=== PATIENT | female | born 1950 | race Caucasian/White ===

== ENCOUNTER 2023-06-08 08:30 | Emergency (ER) | payer MEDICARE, OTHER, SELFPAY ==
[2023-06-08 08:37] VITALS: BP 141/94; PULSE 59; RESP 16; TEMP 36.6; O2SAT 97; BMI 30.6
--- NOTE | 2023-06-08 08:38 | ED_ITS ---
HPI - Female Genitourinary General Chief complaint: Urogenital-Female Stated complaint: POSSIBLE UTI/ABDOMINAL PAIN Time Seen by Provider: 06/08/23 08:38 History of Present Illness HPI Narrative: This document has been composed with a new electronic medical record and [employer] voice recognition system. This document may not fully inaccurately reflect the entirety of the patient encounter.this patient's here with her spouse complaining of frequency of urination with urgency dysuria and hematuria. She's not had fever vomiting or chills. She has intolerance to Cipro. She's not had any recent infections for several years. She is not had a history kidney stones. She does not have any back or flank pain. No nausea or vomiting. She has had a cholecystectomy and thyroidectomy and hysterectomy. She has not had her appendix removed. The discomfort is in the suprapubic area. Related Data Home Medications Medication Instructions Recorded Confirmed atorvastatin 20 mg tablet 20 mg PO DAILY 06/08/23 06/08/23 diclofenac sodium 75 mg 75 mg PO Q12H PRN pain 06/08/23 06/08/23 tablet,delayed release dicyclomine 20 mg tablet 20 mg PO BID PRN IBS 06/08/23 06/08/23 levothyroxine 100 mcg tablet 100 mcg PO DAILY 06/08/23 06/08/23 metoprolol succinate 25 mg 25 mg PO DAILY 06/08/23 06/08/23 tablet,extended release 24 hr valsartan 80 mg tablet 80 mg PO DAILY 06/08/23 06/08/23 Allergies Allergy/AdvReac Type Severity Reaction Status Date / Time ciprofloxacin [From Cipro] AdvReac Mild Verified 06/08/23 08:40 PFSH PFSH Social History Smoking status: Former smoker Exam Narrative Exam Narrative: patient's awake alert oriented ?3 does not appear in any discomfort. Pleasant and cooperative. Problem focused examination as noted below. The back shows no tenderness to percussion over the renal area. Examination abdomen shows previous surgical incisions. There is no guarding rebound rigidity or peritoneal findings. No tenderness in the right lower quadrant or the left lower quadrant. She does have mild discomfort with palpation in the suprapubic area. Otherwise rest examination including neurological examination skin rest traced as are all normal. Symptoms are consistent with a urinary tract infection Constitutional Vital Signs, click to edit/add: Last Vital Signs Temp 97.8 F 06/08/23 08:37 Pulse 59 L 06/08/23 08:37 Resp 16 06/08/23 08:37 BP 141/94 H 06/08/23 08:37 Pulse Ox 97 06/08/23 08:37 O2 Del Method Room Air 06/08/23 08:37 Course Vital Signs Vital signs: Vital Signs Temperature 97.8 F 06/08/23 08:37 Pulse Rate 59 L 06/08/23 08:37 Respiratory Rate 16 06/08/23 08:37 Blood Pressure 141/94 H 06/08/23 08:37 Pulse Oximetry 97 06/08/23 08:37 Oxygen Delivery Method Room Air 06/08/23 08:37 Temperature 97.8 F 06/08/23 08:37 Pulse Rate 59 L 06/08/23 08:37 Respiratory Rate 16 06/08/23 08:37 Blood Pressure 141/94 H 06/08/23 08:37 Pulse Oximetry 97 06/08/23 08:37 Oxygen Delivery Method Room Air 06/08/23 08:37 MDM - Female Genitourinary MDM Narrative Medical decision making narrative: patient's symptoms, findings and laboratory investigations suggests urinary tract infection. Because of intolerance to quinolones I'll place her on Keflex. She'll also begin Pyridium. She is drink plenty of fluids. She should have her urine rechecked when therapy is completed Lab Data Labs: Lab Results 06/08/23 Range/Units 08:36 Urine Color Yellow (YELLOW) Urine Clarity Slightly cloudy A (CLEAR) Urine pH 6.5 (5.0-9.0) Ur Specific [place] 1.020 (1.005-1.025) Urine Protein >=300 A (NEG/TRACE) mg/dL Urine Glucose (UA) Negative (NEGATIVE) mg/dL Urine Ketones Trace A (NEGATIVE) mg/dL Urine Occult Blood Large A (NEGATIVE) Urine Nitrite Negative (NEGATIVE) Urine Bilirubin Small A (NEGATIVE) Urine Urobilinogen 1.0 (0.2-1.0) EU/dL Ur Leukocyte Esterase Moderate A (NEGATIVE) Discharge Plan Discharge Chief Complaint: Urogenital-Female Clinical Impression: Urinary tract infection Patient Disposition: Home, Self-Care Time of Disposition Decision: 09:14 Prescriptions / Home Meds: No Action atorvastatin 20 mg tablet 20 mg PO DAILY Patient Comments: 5 times a week diclofenac sodium 75 mg tablet,delayed release (DR/EC) 75 mg PO Q12H PRN (Reason: pain) dicyclomine 20 mg tablet 20 mg PO BID PRN (Reason: IBS) levothyroxine 100 mcg tablet 100 mcg PO DAILY metoprolol succinate 25 mg tablet extended release 24 hr 25 mg PO DAILY valsartan 80 mg tablet 80 mg PO DAILY Additional Instructions: Keflex/extra fluids/Pyridium/recheck urine seven days Stand Alone Forms: Portal Instructions Referrals: Janina Castro MD [Primary Care Provider] - 1 week
[2023-06-08 09:09] LABS: Bilirubin Urine SMALL (NEGATIVE); Blood Urine LARGE (NEGATIVE); Glucose Urine UA NEGATIVE (NEGATIVE); Ketones Urine TRACE mg/dL (NEGATIVE); Leukocyte Esterase Urine MODERATE (NEGATIVE); Nitrite Urine NEGATIVE (NEGATIVE); Protein Urine >=300 mg/dL (NEG/TRACE); pH Urine 6.5 (5.0-9.0)
[2023-06-08 09:10] LABS: Clarity Urine SLIGHTLY CLOUDY (CLEAR); Urine Microscopic Indicated YES
[2023-06-08 09:15] LABS: Color Urine DK YELLOW (YELLOW)
[2023-06-08 09:16] LABS: Bacteria Urine TRACE #/HPF (NONE SEEN); Cast Seen? NONE SEEN #/LPF (NONE SEEN); Crystals Seen? None Seen #/HPF (None Seen); Mucus Urine NONE SEEN (NONE SEEN); RBC Urine >100 #/HPF (0-2); Squamous Epithelial Cell Urine RARE #/LPF (NONE/RARE)
[2023-06-08 09:17] LABS: Urine Culture Indicated YES
--- NOTE | 2023-06-09 10:08 | PC.NURSE ---
PT CALLED TO SEE ABOUT CULTURE RESULTS. PT AWARE THAT THEY TAKE A FEW DAYS TO RESULT AND TO KEEP TAKING THE ANTIBIOTIC SHE IS ON AND THAT WE WILL CONTACT HER IF THE ANTIBIOTIC NEEDS CHANGED AFTER WE GET THE CULTURE RESULTS. STATES SHE UNDERSTANDS.
--- NOTE | 2023-06-13 09:04 | PC.NURSE ---
06/13/23 0904 fadi felipe reviewwed pt urine from 06/08/23 nno at that time. Lesley Shah RN
== END 2023-06-08 09:21 | disposition home or self-care (01) ==
PROVIDERS: Emergency Provider Emergency Medicine Emergency Medical Services; PCP Family Medicine
DX: N39.0 Urinary tract infection, site not specified (principal); Z90.49 Acquired absence of other specified parts of digestive tract; E89.0 Postprocedural hypothyroidism; Z90.710 Acquired absence of both cervix and uterus; Z79.890 Hormone replacement therapy; Z79.899 Other long term (current) drug therapy; Z87.891 Personal history of nicotine dependence
CPT/HCPCS: 81001; 87086; 87150; 87186; 99283

== ENCOUNTER 2023-06-20 11:11 | Outpatient (OUT) | payer MEDICARE, OTHER, SELFPAY ==
[2023-06-20 12:28] LABS: Bilirubin Urine NEGATIVE (NEGATIVE); Blood Urine NEGATIVE (NEGATIVE); Clarity Urine CLEAR (CLEAR); Color Urine LT. YELLOW (YELLOW); Glucose Urine UA NEGATIVE (NEGATIVE); Ketones Urine TRACE mg/dL (NEGATIVE); Leukocyte Esterase Urine TRACE (NEGATIVE); Nitrite Urine NEGATIVE (NEGATIVE); Protein Urine NEGATIVE (NEG/TRACE); Specific Gravity Urine 1.015 (1.005-1.025); Urobilinogen Urine 0.2 EU/dL (0.2-1.0); pH Urine 6.5 (5.0-9.0)
== END 2023-06-20 11:12 | disposition home or self-care (01) ==
LOC: LAB 11:13
PROVIDERS: PCP Family Medicine; Visit Provider Family Medicine
DX: N30.01 Acute cystitis with hematuria (principal)
CPT/HCPCS: 81003; 87086; 87150; 87186

== ENCOUNTER 2023-07-28 15:29 | Outpatient (OUT) | payer MEDICARE, OTHER, SELFPAY ==
[2023-07-28 16:01] LABS: Bilirubin Urine NEGATIVE (NEGATIVE); Blood Urine LARGE (NEGATIVE); Clarity Urine CLEAR (CLEAR); Color Urine LT. YELLOW (YELLOW); Glucose Urine UA NEGATIVE (NEGATIVE); Ketones Urine TRACE mg/dL (NEGATIVE); Leukocyte Esterase Urine SMALL (NEGATIVE); Nitrite Urine NEGATIVE (NEGATIVE); Protein Urine NEGATIVE (NEG/TRACE); Urobilinogen Urine 0.2 EU/dL (0.2-1.0)
== END 2023-07-28 15:30 | disposition home or self-care (01) ==
LOC: LAB 15:32
PROVIDERS: PCP Family Medicine; Visit Provider Family Medicine
DX: R30.0 Dysuria (principal)
CPT/HCPCS: 81003; 87086

== ENCOUNTER 2024-02-27 09:07 | Outpatient (OUT) | payer MEDICARE, OTHER, SELFPAY ==
[2024-02-27 10:55] LABS: Alanine Aminotransferase 23 U/L (14-59); Aspartate Amino Transferase 18 U/L (15-37); Chol HDL Ratio 2.6; Cholesterol 187 mg/dL (<=200); HDL Cholesterol 73 mg/dL (40-60); Triglycerides 89 mg/dL (<=150); VLDL CHOLESTEROL 17.8 mg/dL
== END 2024-02-27 09:08 | disposition home or self-care (01) ==
LOC: LAB 09:07
PROVIDERS: PCP Family Medicine; Visit Provider Internal Medicine Cardiovascular Disease
DX: E78.2 Mixed hyperlipidemia (principal)
CPT/HCPCS: 36415; 80061; 84450; 84460

== ENCOUNTER 2024-02-27 09:08 | Outpatient (OUT) | payer MEDICARE, OTHER, SELFPAY ==
[2024-02-27 11:02] LABS: Free T4 1.15 ng/dL (0.76-1.46)
[2024-02-27 11:05] LABS: Thyroid Stimulating Hormone 1.136 uIU/mL (0.358-3.740)
== END 2024-02-27 09:09 | disposition home or self-care (01) ==
LOC: LAB 09:08
PROVIDERS: PCP Family Medicine; Visit Provider Family Medicine
DX: E78.2 Mixed hyperlipidemia (principal); I10 Essential (primary) hypertension; E03.9 Hypothyroidism, unspecified
CPT/HCPCS: 36415; 80061; 84439; 84443; 84450; 84460

== ENCOUNTER 2024-05-26 10:11 | Outpatient (OUT) | payer MEDICARE, OTHER, SELFPAY ==
--- NOTE | 2024-05-26 10:15 | MM_ITS ---
Patient Name: GARTH OLGUIN MR#: [id number] : 1950 Exam Date: 05/26/2024 Ordering Doctor: DR THIERRY CANTRELL RADIOLOGY REPORT PROCEDURE: MM TOMOSYNTHESIS SCREENING BI COMPARISON: MG MAMM SCREEN 3D DAMI CAD, 07/31/2021. MG MAMM SCREEN 3D DAMI CAD, 08/20/2022. INDICATIONS: Screening Calculator Name NCI Breast Cancer Risk Assessment Tool 5 Year Breast Cancer Risk 1.70% Lifetime Breast Cancer Risk 4.70% Personal Breast Cancer No Personal Ovarian Cancer No Treatments hysterectomy Family Cancers Mother with pancreatic cancer at age 70. LOCATION: [facility] BREAST COMPOSITION: The breasts are heterogeneously dense,which may obscure small masses. FINDINGS: DIAGNOSTIC CATEGORY 2--BENIGN FINDING. NO CHANGE FROM COMPARISON. Scattered benign-appearing calcifications are present. Scattered benign-appearing lymph nodes are present. RIGHT BREAST: No significant suspicious finding. LEFT BREAST: No significant suspicious finding. RECOMMENDATIONS: ROUTINE MAMMOGRAM AND CLINICAL EVALUATION IN 12 MONTHS. PLEASE NOTE: A NORMAL MAMMOGRAM DOES NOT EXCLUDE THE POSSIBILITY OF BREAST CANCER. A CLINICALLY SUSPICIOUS PALPABLE LUMP SHOULD BE BIOPSIED. Dictated by: Donny Harding MD on 05/26/2024 at 11:34 Approved by: Donny Harding MD on 05/26/2024 at 11:37
== END 2024-05-26 10:12 | disposition home or self-care (01) ==
LOC: MAMMO 10:12
PROVIDERS: PCP Family Medicine; Visit Provider Obstetrics & Gynecology
DX: Z12.31 Encounter for screening mammogram for malignant neoplasm of breast (principal); Z80.8 Family history of malignant neoplasm of other organs or systems
CPT/HCPCS: 77063; 77067

== ENCOUNTER 2025-03-03 09:01 | Outpatient (OUT) | payer MEDICARE, OTHER, SELFPAY ==
--- OUTSIDE RECORDS SUMMARY | 2025-02-24 10:16 | XMS_ITS ---
Author Name Auto Generated Organization OHIP Care Team Providers Care Telescope Maintenance Name Role Phone MARGI WANG Referring Unavailable AURELIA QUIROGA Primary Care Unavailable THIERRY CANTRELL Referring Unavailable AURELIA QUIROGA Primary Care Unavailable THIERRY CANRTELL Referring Unavailable AURELIA QUIROGA Primary Care Unavailable MARGI WANG Attending Unavailable MARGI WANG Referring Unavailable AURELIA QUIROGA Primary Care Unavailable PROBLEMS DATE TYPE CONDITION / CODE ATTENDING STATUS [facility] 02/24/2025 Admitting Diagnosis Encounter for preprocedural cardiovascular examination / Z01.810(ICD-10[facility] Admitting Diagnosis Body mass index (BMI) 29.0-29.9, adult / Z68.29(ICD-10) [facility] 02/25/2024 Admitting Diagnosis Atherosclerotic heart disease of [place] coronary artery without angina pectoris / I25.10(ICD-10) [facility] 06/07/2023 Admitting Diagnosis Personal history of nicotine dependence / Z87.891(ICD-10) [facility] 06/07/2023 Admitting Diagnosis Coronary angioplasty status / Z98.61(ICD-10) [facility] 06/07/2023 Admitting Diagnosis Acute myocardial infarction, unspecified / I21.9(ICD-10) [facility] 06/07/2023 Admitting Diagnosis Mixed hyperlipidemia / E78.2(ICD-10) [facility] 06/07/2023 Admitting Diagnosis Essential (primary) hypertension / I10(ICD-10) [facility] 06/07/2023 Admitting Diagnosis Patent foramen ovale (HHS-HCC) / Q21.12(ICD-10) [facility] 06/07/2023 Admitting Diagnosis Transient cerebral ischemic attack, unspecified / G45.9(ICD-10) [facility] 05/12/2024 Admitting diagnosis Acute vaginitis / N76.0(ICD-10) [place] 05/12/2024 Unknown Acute vaginitis / N76.0(ICD-10) [facility] 05/12/2024 Unknown Encounter for screening for malignant neoplasm of vagina / Z12.72(ICD-10) [place] 06/07/2023 Admitting Diagnosis Occlusion and stenosis of bilateral carotid arteries / I65.23(ICD-10) [facility] PROCEDURES No Procedure Records Found RESULTS CULT,GENITAL Observed: 05/12/2024 5:24 PM Status: F Source: [facility] Specimen Description .VAGINA Special Requests Site: Genital Culture NORMAL URO-GENITAL [place] NEGATIVE FOR NEISSERIA GONORRHOEAE Report Status FINAL 05/15/2024 Performed By: #### [facility] [place] #### [facility] [address] [place] [address] Low Emission Automobile Designer: Mario Doty MD [facility] [address] [place] [address] Low Emission Automobile Designer: Donny Booth MD CYTOLOGY REPORT Observed: 05/12/2024 12:00 AM Status: F Source: [facility] (NOTE) Path Number: [id number] DIAGNOSIS Imaged ThinPrep Pap - Vaginal (1 monolayer slide): Specimen Adequacy: Satisfactory for evaluation. Descriptive Diagnosis: Negative for intraepithelial lesion or malignancy. Comments: Specimen was screened at [facility], [facility] [address] Cytotech Screener: CS Rescreened By: YONATHAN Electronically Signed Out MIGUEL Mariano(ASCP) yonathan/05/17/2024 Source of Specimen: A: Imaged ThinPrep Pap - Vaginal (1 monolayer slide) HPV Reflex?......................HPV if Abnormal Clinical History Hysterectomy Z12.72 Vaginal pap post hysterectomy, non malignant condition Processing Lab: [address] [address] Interpretation performed at [facility], [address] [place] [address] This Pap Test has been evaluated with [...] GYNECOLOGIC CYTOLOGY REPORT Patient Name: GARTH OLGUIN [facility] Rec: [id number] [facility] ANAT[facility] [address] [place], [place] [address] [facility] US CAROTID ARTERY DUPLE X BILATERAL Observed: 04/08/2024 12:35 PM Status: F Source: [address], [address] [facility], [place] [address] Vascular Lab Report [facility] US CAROTID ARTERY DUPLEX BILATERAL Patient Name: GARTH OLGUIN Reading Physician: [id number] Neha Roman MD, [facility] Study Date: 04/08/2024 Ordering Provider: [id number] MARGI WANG MRN/PID: [id number] Fellow: Technologist: Orly New RD, T Date of /Age: 907/11/1950 / 73 years Technologist 2: Gender: F Admission Status: Outpatient Location Performed: [facility] Diagnosis/ICD: Occlusion and stenosis of bilateral carotid arteries-I65.23 Indication: HTN, Hyperlipidemia, Former Smoker, Previous TIA, CAD, PTCA-2017, PFO CPT Codes: 92846 Cerebrovascular Carotid Duplex scan complete CONCLUSIONS: Right [...] cm/s Right Left ICA/CCA Ratio 1.1 1.3 39144 Neha Roman MD, FACC Final ALLERGIES DATE TYPE / CODE NAME / CODE REACTION SEVERITY SOURCE 06/07/2023 DRUG INGREDI/[id number]( SNOMED CT) CIPROFLOXACIN [place] ENCOUNTERS ADMIT/DISCHARGE ACCOUNT NUMBER ADMITTING ENCOUNTER CLASS LOCATION SOURCE 02/24/2025/ 5 [id number] Ambulatory Building:[facility] [id number] [facility] 05/12/2024/ 4 [id number] Ambulatory Building:[facility] 05/12/2024/ 4 [id number] Ambulatory Building:[facility] 04/08/2024/ 4 [id number] Ambulatory Building:[address] PAYERS ENCOUNTER GUARANTOR PAYER SUBSCRIBER SOURCE 02/24/2025 GARTH B SHANTAANDERDOB: [id number] [address], [place] [address]Pzx: () Primary Insurance:MEDICAREPolic y Number: [id number] Date:2010-03-13 GARTH B SHANTAANDERDOB: [id number] [facility] [address] [place] [address], [place] [address]Xhh: () [facility] 02/24/2025 Secondary Insurance[facility] Number: [id number] Date:2022-10-13 JASEN Omalley SWANDERDOB: [id number] [facility] [address] [place] [address], [place] [address]Mhw: () [facility] 05/12/2024 GARTH Cerna SWANDERDOB: [id number] [facility] [address] [place] [address], [place] [address]Ayi: () Primary Insurance:MEDICAREPolic y Number: [id number] Date:8215-67-64[address], [place] [address]WJ: GARTH B SHANTAANDERDOB: [id number] [facility] [address] [place] [address], [place] [address]Lij: () [facility] 05/12/2024 Secondary Insurance:[facility] Number: [id number] Date:2014-10-13[address], [place] [address]GC: JASEN SWANDERDOB: [id number] [place], [place] [address]Hzt: (HP) [facility] 05/12/2024 GARTH Cerna SWANDERDOB: [id number] [facility] [address] [place], [place] [address]Zgg: (HP) Primary Insurance:MEDICAREPolic y Number: [id number] Date:[id number] [place] [address]XR: GARTH B SHANTAANDERDOB: [id number] [facility] [address] [place] [address], [place] [address]Nwo: (HP) [facility] 05/12/2024 Secondary Insurance:[facility]ENTERPoly Number: [id number] Date:2014-10-13[address], [place] [address]UJ: JASEN WOMACKANDERDOB: [id number] [facility] [address] [place] [address], [place] [address]Oaq: (HP) [facility] 04/08/2024 GARTH B SWANDERDOB: [id number] [facility] [address] [facility] [address]Kdb: (HP) Primary Insurance:MEDICAREPolic y Number: [id number] Date:2010-03-13 GARTH B SWANDERDOB: [id number] [facility] [address] [place], [place] [address]Jus: (HP) [facility] 04/08/2024 Secondary Insurance:[facility]ENTERPolicy Number: [id number] Date:2022-10-13 JASEN OLGUINDOB: [id number] [facility] [address] [place] [address] [facility]
[2025-03-03 10:26] LABS: Chol HDL Ratio 1.9; Cholesterol 155 mg/dL (<=200); HDL Cholesterol 81 mg/dL (40-60); Thyroid Stimulating Hormone 3.829 uIU/mL (0.358-3.740); Triglycerides 99 mg/dL (<=150); VLDL CHOLESTEROL 19.8 mg/dL
== END 2025-03-03 09:02 | disposition home or self-care (01) ==
LOC: LAB 09:01
PROVIDERS: PCP Family Medicine; Visit Provider Family Medicine
DX: E03.9 Hypothyroidism, unspecified (principal); E78.5 Hyperlipidemia, unspecified
CPT/HCPCS: 36415; 80061; 84439; 84443

== ENCOUNTER 2025-03-03 09:02 | Outpatient (OUT) | payer MEDICARE, OTHER, SELFPAY ==
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
--- OUTSIDE RECORDS SUMMARY | 2025-02-22 05:04 | XMS_ITS ---
Author Organization [facility] Address [address] [place] [address] Care Team Providers Care Oceanic Sciences Professor Name Role Phone Janina Castro M.D. Primary Care Provider Unavail able Jose Rodríguez Unavailable [phone] Self, Referral Unavailable Unavailable Jeramie Younger Unavailable [phone] REASON FOR VISIT Message Encounters Encounter Location Date Provider Diagnosis [facility] [address] [place] [address] 02/22/2025 Jeramie Younger Plan Of Treatment Next Appt Details Provider Name:Jeramie Younger, 03/14/2025 10:30:00 AM, [address], [address], [address], Provider Name:Jeramie Younger, 03/24/2025 09:30:00 AM, [address] [place] [address], [address], Provider Name:Jeramie Younger, 04/11/2025 09:50:00 AM, [address], [address], [address], Progress Notes * GARTH REGALADO BDOB:1949 (74 yo F)Acc No.[id number]:02/22/2025 Patient: LAINE CRAWFORDECCA Eryn :1950 A ge:74 Y S ex:Female Address:[address] [place] [address] 7 , [place], [address] * true * Date: Generated for Elizabeth avilez/Ludin/Kim on: 0 03/03/2025 09:04 AM EDT
--- OUTSIDE RECORDS SUMMARY | 2025-02-22 05:13 | XMS_ITS ---
Author Organization [facility] Address [address] [place] [address] Care Team Providers Care Nurse Staff Industrial Name Role Phone Janina Castro M.D. Primary Care Provider Unavail able Jose Rodríguez Unavailable [phone] Self, Referral Unavailable Unavailable Jose Ramon Sung Unavailable [phone] REASON FOR VISIT Surgical Patient Encounters Encounter Location Date Provider Diagnosis [facility] [address] [place] [address] 02/22/2025 Jose Ramon Sung Plan Of Treatment Next Appt Details Provider Name:Jeramie Younger, 03/14/2025 10:30:00 AM, [address], [address], Provider Name:Jeramie Younger, 03/24/2025 09:30:00 AM, [address] [place] [address], [address], Provider Name:Jeramie Younger, 04/11/2025 09:50:00 AM, [address] [place], [address], Progress Notes * GARTH REGALADO BDOB:1949 (74 yo F)Acc No.[id number]:02/22/2025 Patient: GARTH CRAWFORD :1950 A ge:74 Y S ex:Female Address:[address] [facility] [address] , [place], [address] * true * Date: Generated for Elizabeth avilez/Ludin/Kim on: 0 03/03/2025 09:04 AM EDT
--- OUTSIDE RECORDS SUMMARY | 2025-02-24 10:16 | XMS_ITS ---
Author Name Auto Generated Organization [facility] Care Team Providers Care Lead Java J2Ee Developer Name Role Phone THIERRY CANTRELL Referring Unavailable AURELIA QUIROGA Primary Care Unavailable THIERRY CANTRELL Referring Unavailable AURELIA QUIROGA Primary Care Unavailable MARGI WANG Attending Unavailable MARGI WANG Referring Unavailable AURELIA QUIROGA Primary Care Unavailable MARGI WANG Referring Unavailable AURELIA QUIROGA Primary Care Unavailable PROBLEMS DATE TYPE CONDITION / CODE ATTENDING STATUS [facility] 02/24/2025 Admitting Diagnosis Encounter for preprocedural cardiovascular examination / Z01.810(ICD-10) [facility] Admitting Diagnosis Body mass index (BMI) 29.0-29.9, adult / Z68.29(ICD-10) [facility] 02/25/2024 Admitting Diagnosis Atherosclerotic heart disease of [place] coronary artery without angina pectoris / I25.10(ICD-10) [facility] 06/07/2023 Admitting Diagnosis Personal history of nicotine dependence / Z87.891(ICD-10) [facility] 06/07/2023 Admitting Diagnosis Coronary angioplasty status / Z98.61(ICD-10) [facility] 06/07/2023 Admitting Diagnosis Acute myocardial infarction, unspecified / I21.9(ICD-10) [facility] 06/07/2023 Admitting Diagnosis Mixed hyperlipidemia / E78.2(ICD-10) [facility] 06/07/2023 Admitting Diagnosis Essential (primary) hypertension / I10(ICD-10) [facility] 06/07/2023 Admitting Diagnosis Patent foramen ovale (HHS-HCC) / Q21.12(ICD-10) [facility] 06/07/2023 Admitting Diagnosis Occlusion and stenosis of bilateral carotid arteries / I65.23(ICD-10) [facility] 06/07/2023 Admitting Diagnosis Transient cerebral ischemic attack, unspecified / G45.9(ICD-10) [facility] 05/12/2024 Admitting diagnosis Acute vaginitis / N76.0(ICD-10) [facility] 05/12/2024 Unknown Acute vaginitis / N76.0(ICD-10) [facility] 05/12/2024 Unknown Encounter for screening for malignant neoplasm of vagina / Z12.72(ICD-10) [facility] PROCEDURES No Procedure Records Found RESULTS CULT,GENITAL Observed: 05/12/2024 5:24 PM Status: F Source: [facility] Specimen Description .VAGINA Special Requests Site: Genital Culture NORMAL URO-GENITAL [place] NEGATIVE FOR NEISSERIA GONORRHOEAE Report Status FINAL 05/15/2024 Performed By: #### [facility] #### [facility] [address] [place] [address] Kardex Clerk: Mario Doty MD [facility] [address] [place] [address] Kardex Clerk: Donny Booth MD CYTOLOGY REPORT Observed: 05/12/2024 12:00 AM Status: F Source: [facility] (NOTE) Path Number: [id number] DIAGNOSIS Imaged ThinPrep Pap - Vaginal (1 monolayer slide): Specimen Adequacy: Satisfactory for evaluation. Descriptive Diagnosis: Negative for intraepithelial lesion or malignancy. Comments: Specimen was screened at [facility], [facility] [address] Cytotech Screener: CS Rescreened By: YONATHAN Electronically Signed Out MIGUEL Mariano(ASCP) yonathan/05/17/2024 Source of Specimen: A: Imaged ThinPrep Pap - Vaginal (1 monolayer slide) HPV Reflex?......................HPV if Abnormal Clinical History Hysterectomy Z12.72 Vaginal pap post hysterectomy, non malignant condition Processing Lab: [address] [address] Interpretation performed at [facility], [address] [place] [address] This Pap Test has been evaluated with the assistance of the ThinPrep Pap Test Imaging System. The Pap smear is a screening test primarily for squamous epithelial lesions, which is subject to both false negative and false positive results. Your patient should be reminded to consult you immediately if she experiences any suspicious signs or symptoms, regardless of her Pap smear result. GYNECOLOGIC CYTOLOGY REPORT Patient Name: GARTH OLGUIN [facility] Rec: [id number] [facility] [address] [place], [place] [address] [facility] US CAROTID ARTERY DUPLE X BILATERAL Observed: 04/08/2024 12:35 PM Status: F Source: [address], [address] [facility], [place] [address] Vascular Lab Report [facility] US CAROTID ARTERY DUPLEX BILATERAL Patient Name: GARTH OLGUIN Reading Physician: [id number] Neha Roman MD, [facility] Study Date: 04/08/2024 Ordering Provider: [id number] MARGI WANG MRN/PID: [id number] Fellow: Technologist: Orly New RD, T Date of /Age: 907/11/1950 / 73 years Technologist 2: Gender: F Admission Status: Outpatient Location Performed: [facility] Diagnosis/ICD: Occlusion and stenosis of bilateral carotid arteries-I65.23 Indication: HTN, Hyperlipidemia, Former Smoker, Previous TIA, CAD, PTCA-2017, PFO CPT Codes: 42903 Cerebrovascular Carotid Duplex scan complete CONCLUSIONS: Right Carotid: Findings are consistent with 50 to 69% stenosis of the right proximal internal carotid artery. Laminar flow seen by color Doppler. Right external carotid artery appears patent with no evidence of stenosis. No evidence of hemodynamically significant stenosis of the right common carotid artery. The right vertebral artery is patent with antegrade flow. No significant changes since 2020. Left Carotid: Findings are consistent with 50 to 69% stenosis of the left proximal internal carotid artery. Laminar flow seen by color Doppler. Left external carotid artery appears patent with no evidence of stenosis. No evidence of hemodynamically significant stenosis of the left common carotid artery. The left vertebral artery is patent with antegrade flow. No significant changes since 2020. Imaging & Doppler Findings: Right Plaque Morph: The proximal right internal carotid artery demonstrates irregular and calcified plaque. The distal right internal carotid artery demonstrates irregular and calcified plaque. The distal right common carotid artery demonstrates irregular plaque. Left Plaque Morph: The distal left internal carotid artery demonstrates irregular and calcified plaque. Right Left PSV EDV PSV EDV 95 cm/s 16 cm/s CCA P 115 cm/s 16 cm/s 113 cm/s 19 cm/s CCA M 87 cm/s 16 cm/s 77 cm/s 20 cm/s CCA D 67 cm/s 14 cm/s 84 cm/s 23 cm/s ICA P 86 cm/s 22 cm/s 100 cm/s 31 cm/s ICA M 106 cm/s 33 cm/s 138 cm/s 46 cm/s ICA D 142 cm/s 45 cm/s 70 cm/s ECA 87 cm/s 43 cm/s Vertebral 58 cm/s Right Left ICA/CCA Ratio 1.1 1.3 77575 Neha Roman MD, FACC Final ALLERGIES DATE TYPE / CODE NAME / CODE REACTION SEVERITY SOURCE 06/07/2023 DRUG INGREDI/[id number]( SNOMED CT) CIPROFLOXACIN Unknown [facility] Ambulatory ENCOUNTERS ADMIT/DISCHARGE ACCOUNT NUMBER ADMITTING ENCOUNTER CLASS LOCATION SOURCE 02/24/2025/ [id number] Ambulatory Building:[facility] [id number] [facility] 05/12/2024/ 4 [id number] Ambulatory Building:[facility] 05/12/2024/ 4 [id number] Ambulatory Building:[facility] 04/08/2024/ 4 [id number] Ambulatory Building:[address] PAYERS ENCOUNTER GUARANTOR PAYER SUBSCRIBER SOURCE 02/24/2025 GARTH Eryn WOMACKANDERDOB: [id number] [address], [place] [address]Rlz: () Primary Insurance:MEDICAREPolic y Number: [id number] Date:2010-03-13 GARTH B SHANTAANDERDOB: [id number] [facility] [address] [place] [address], [place] [address]Fpg: () [facility] 02/24/2025 Secondary Insurance[facility] Number: [id number] Date:2022-10-13 JASEN WOMACKANDERDOB: [id number] [facility] [address] [place] [address], [place] [address]Wbb: () [facility] 05/12/2024 GARTH Cerna SHANTAANDERDOB: [id number] [facility] [address] [place] [address], [place] [address]Uij: () Primary Insurance:MEDICAREPolic y Number: [id number] Date:5775-31-91[address], [place] [address]JP: GARTH B SHANTAANDERDOB: [id number] [address], [place] [address]Fxl: () [facility] 05/12/2024 Secondary Insurance[facility] Number: [id number] Date:2014-10-13[address] [place] [address]FT: JASEN SWANDERDOB: [id number], [place] [address]Iyr: () [facility] 05/12/2024 GARTH Cerna SWANDERDOB: [id number] [address] [place], [place] [address]Nva: (HP) Primary Insurance:MEDICAREPolic y Number: [id number] Date:2312-55-93[address] [address], [place] [address]ZL: GARTH B SHANTAANDERDOB: [id number] [facility] [address] [place], [place] [address]Yvl: (HP) [facility] 05/12/2024 Secondary Insurance:[facility] Number: [id number] Date:2014-10-13[address] [place], [place] [address]UL: JASEN WOMACKANDERDOB: [id number] [place], [place] [address]Qyh: (HP) [facility] 04/08/2024 GARTH B SHANTAANDERDOB: [id number] [facility] [address] [place], [place] [address]Ozx: (HP) Primary Insurance:MEDICAREPolic y Number: [id number] Date:2010-03-13 GARTH B SWANDERDOB: [id number] [facility] [address] [address], [place] [address]Toz: () [facility] 04/08/2024 Secondary Insurance:[facility]Policy Number: [id number] Date:2022-10-13 JASEN OLGUINDOB: [id number] [address] [facility]
--- OUTSIDE RECORDS SUMMARY | 2025-02-24 10:30 | XMS_ITS | Encounter Summary ---
Author Organization [facility] Address [address] [place] [address] Phone Care Team Providers Care Title Manager Name Role Phone Janina Castro MD Primary Care Provider [phone] Reason for Referral * Imaging (Routine) - Authorized Specialty Diagnoses / Procedures Referred By Contac t Referred To Contact Cardiology Diagnoses Bilateral carotid artery stenosis Procedures Vascular US Carotid Artery Duplex Bilateral Lul Rose DO [address] [place] [address], [address] [address] Phone: tel: fax: Referral ID Status Reason Start Date Expiration Date Visits Requested Visits Authorized [id number] Authorized Perform Procedure 02/24/2025 02/24/2026 1 1 * Consultation (Routine) - Authorized Specialty Diagnoses / Procedures Referred By Contac t Referred To Contact Cardiology Diagnoses ASHD (arteriosclerotic heart disease) Procedures Follow Up In Cardiology Lul Rose DO [address] [place] [address] 2, [address] [address] Phone: tel: fax: Lul Rose DO [address] [place] [address], [address] [address] Phone: tel: fax: Referral ID Status Reason Start Date Expiration Date V isits Requested Visits Authorized [id number] Authorized 02/24/2025 02/24/2026 1 1 * Cardiac Stress Testing (Routine) - Authorized Specialty Diagnoses / Procedures Referred By Chevy moreland Referred To Contact Radiology Diagnoses Preop cardiovascular exam ASHD (arteriosclerotic heart disease) History of PTCA Myocardial infarction, unspecified [place] type, unspecified artery (Multi) Essential hypertension Procedures Nuclear Stress Test CHG MYOCARDIAL SPECT MULTIPLE STUDIES Lul Rose DO [address] [place] [address] 2, [address] [place] [address] Phone: tel: fax: Referral ID Status Reason Start Date Expiration Date V isits Requested Visits Authorized [id number] Authorized 02/24/2025 02/24/2026 5 5 Reason for Visit * Reason Comments Annual Exam 1 year, arterioscler otic heart disease * Consultation (Routine) - Authorized Specialty Diagnoses / Procedures Referred By Chevy moreland Referred To Contact Cardiology Diagnoses ASHD (arteriosclerotic heart disease) Procedures Follow Up In Cardiology Lul Rose DO [address] [facility] 2, [address] [place] [address] Phone: tel: fax: Lul Rose DO [facility] [facility] 2, [address] [place] [address] Phone: tel: fax: Referral ID Status Reason Start Date Expiration Date V isits Requested Visits Authorized [id number] Authorized 02/25/2024 02/24/2025 1 1 Encounter Details Date Type Department Care Team (Latest Contact Info) Description 02/24/2025 10:30 AM EDT Office Visit [facility] [address] [facility] [address] [place] [address] Lul Rose DO [address] [facility] 2, [address] [place] [address] Preop cardiovascular exam; ASHD (arteriosclerotic heart disease); History of PTCA; Myocardial infarction, unspecified [place] type, unspecified artery (Multi); Mixed hyperlipidemia; Essential hypertension; PFO (patent foramen ovale) ([facility]); Bilateral carotid artery stenosis; TIA (transient [...] sent through Care Everywhere. * DASH Diet (Cook Islander) documented in this encounter Progress Notes * [...] tablet, Daily nitroglycerin (NITROSTAT) 0.3 mg omega 2-ppb-ykh-fish oil (Fish OiL) 1,000 mg (120 mg-180 mg) capsule 1 capsule, Daily TURMERIC ORAL 1 capsule, Daily xylitoL (XyliMelts) 550 mg muco-adhesive buccal tablet Daily Assessment/Plan 1. Preop cardiovascular exam 2. ASHD (arteriosclerotic heart disease) Follow Up In Cardiology 3. History of PTCA 4. Myocardial infarction, unspecified [place] type, unspecified artery (Multi) 5. Mixed hyperlipidemia 6. Essential hypertension 7. PFO (patent foramen ovale) ([facility]) 8. Bilateral carotid artery stenosis 9. TIA [...] Info) Description 03/17/2025 8:00 AM EDT Appointment [address] [place] [address] 03/17/2025 8:30 AM EDT Appointment [address] [place] [address] 03/17/2025 9:00 AM EDT Appointment [address] [place] [address] 03/17/2025 9:30 AM EDT Appointment [address] [place] [address] 03/17/2025 9:45 AM EDT Appointment [address] [place] [address] 02/16/2026 9:45 AM EDT Appointment [address] [place] [address] 03/01/2026 10:30 AM EDT Office Visit [address] [place] [address] Lul Rose DO [address] [place] [address] 2, [address] [place] [address] Scheduled Orders Name Type Priority Associated Diagnoses Orde r Schedule Nuclear Stress Test Cardiac Nuclear Medicine Routine Preop cardiovascular exam ASHD (arteriosclerotic heart disease) History of PTCA Myocardial infarction, unspecified [place] type, unspecified artery (Multi) Essential hypertension Expected: 02/24/2025 (Approximate), Expires: 02/24/2027 Vascular US Carotid Artery Duplex Bilateral Vascular Ultrasound Routine Bilateral carotid artery stenosis Expected: 03/13/2026 (Approximate), Expires: 02/24/2027 documented as of this encounter Visit Diagnoses Diagnosis Preop cardiovascular exam Pre-operative cardiovascular examination ASHD (arteriosclerotic heart disease) Coronary atherosclerosis of unspecified type of vessel, ione or graft History of PTCA Postsurgical percutaneous transluminal coronary angioplasty status Myocardial infarction, unspecified [place] type, unspecified artery (Multi) Mixed hyperlipidemia Essential hypertension Unspecified essential hypertension PFO (patent foramen ovale) ([facility]) Ostium secundum type atrial septal defect Bilateral [...] documented as of this encounter Care Teams Title Manager Relationship Specialty Start Date End Date Janina Castro MD [address] [place] [address] PCP - General 04/03/21 documented as of this encounter
--- OUTSIDE RECORDS SUMMARY | 2025-03-03 09:04 | XMS_ITS | Encounter Summary ---
Author Organization Sudeep Dohertymeg [facility] Address [address] [place] [address] Care Team Providers Care Bench Assembler Electrical Name Role Phone Janina Castro MD Primary Care Provider [phone] Encounter Details Date Type Department Care Team (Late st Contact Info) Description 07/25/2021 Abstract [facility]ST[facility] GYNECOLOGY [address] [place] [address] [address] [place] [address] Jeovany Betancourt MD [address] [facility] [address] [place] [address] Social History Tobacco Use Types Packs/Day Years Used Date Smoking Tobacco: Former Smokeless Tobacco: Never Alcohol Use Standard Drinks/Week Comments No 0 (1 standard drink = 0.6 oz pur e alcohol) Comments No Sex and Gender Information Value Date Recorded Sex Assigned at Not on file Legal Sex Female 10:32 AM EDT Gender Identity Not on file Sexual Orientation Not on file documented as of this encounter Plan of Treatment Upcoming Encounters Date Type Department Care Team (Latest Contact Info) Description 03/24/2025 10:04 AM EDT Hospital Encounter [facility] [address] [place] [address] Jeramie Younger MD [facility] [place] [address] 03/24/2025 10:04 AM EDT - 03/24/2025 12:39 PM EDT Surgery [facility] [address] [place] [address] Jeramie Younger MD [facility] [place] [address] RIGHT TOTAL KNEE ARTHROPLASTY 05/16/2025 11:10 AM EDT Office Visit [facility] OBST[facility]ICS & [facility]YN[facility]OLOGY Part of [address] [place] [address] Shelby Castillo APRN - [address] [place] [address] yearly--last seen by Dr Gutierrez Scheduled Procedures Name Priority Associated Diagnoses Date/Ti me KNEE TOTAL ARTHROPLASTY Right knee pain, unspecified chronicity Osteoarthritis of right knee, unspecified osteoarthritis type 03/24/2025 10:04 AM EDT documented as of this encounter Visit Diagnoses Not on filedocumented in this encounter Additional Health Concerns Assessment Noted Time A fall risk assessment has been complete d for the patient 03/23/2018 10:41 AM EDT A Body Mass Index follow-up plan has been documented for the patient 07/23/2021 11:10 AM EDT documented as of this encounter Care Teams Bench Assembler Electrical Relationship Specialty Start Date End Date Janina Castro MD PCP - General Family Medicine 04/10/18 documented as of this encounter
--- OUTSIDE RECORDS SUMMARY | 2025-03-03 09:04 | XMS_ITS | Encounter Summary ---
Author Organization [facility]udeep Ayah [facility] Address [address] [place] [address] Care Team Providers Care Sales Agent Business Services Name Role Phone Janina Castro MD Primary Care Provider [phone] Encounter Details Date Type Department Care Team (Latest Contact Info) Description 04/23/2018 Surg/Proc Orders [facility] Gynecologic Oncology Services [facility] [address] [place] [id number] Farhad Mendez MD Endometrial adenocarcinoma (HCC) (Primary Dx) Social History Tobacco Use Types Packs/Day Years [...] AM EDT Hospital Encounter [facility] [address] [place] [address] Jeramie Younger MD [facility] [place] [address] 03/24/2025 10:04 AM EDT - 03/24/2025 12:39 PM EDT Surgery [facility] [address] [place] [address] Jeramie Younger MD [address] [place] [address] RIGHT TOTAL KNEE ARTHROPLASTY 05/16/2025 11:10 AM EDT Office Visit [facility] OBSTETRICS & GYNECOLOGY Part of [address] [place] [address] Shelby Castillo APRN - [address] [place] [address] yearly--last seen by Dr Gutierrez Scheduled Procedures Name Priority Associated Diagnoses Date/Ti me KNEE TOTAL ARTHROPLASTY Right knee pain, unspecified chronicity Osteoarthritis of right knee, unspecified osteoarthritis type 03/24/2025 10:04 AM EDT documented as of this encounter Visit Diagnoses Diagnosis Endometrial adenocarcinoma (HCC)- Primary Malignant neoplasm of corpus uteri, except isthmus Right knee pain, unspecified chronicity Osteoarthritis of right knee, unspecified osteoarthritis type documented in this encounter Additional Health Concerns Assessment Noted Time A fall risk assessment has been complete d for the patient 03/23/2018 10:41 AM EDT documented as of this encounter Care Teams Sales Agent Business Services Relationship Specialty Start Date End Date Janina Castro MD PCP - General Family Medicine 04/10/18 documented as of this encounter
--- OUTSIDE RECORDS SUMMARY | 2025-03-03 09:04 | XMS_ITS | Encounter Summary ---
Author Organization [facility] Address [facility] [place] [address] Care Team Providers Care Circulation Worker Name Role Phone Janina Castro MD Primary Care Provider [phone] Source Comments In the event this information is protected by the Federal Confidentiality of Alcohol and Drug AbusePatient Records regulations: The Federal rules restrict any use of the information to criminally investigate or prosecute any alcohol or drug abuse patient.[facility] Encounter Details Date Type Department Care Team ([facility] Contact Info) Description 04/27/2019 Patient Msg Medical Records [address] [place] [address] Provider, Ccf Prescribed Patient Education Video(s) Social History Tobacco Use Types Packs/Day Years Used Date Smoking Tobacco: Former Cigarettes 1 15 Smokeless Tobacco: Never Comments:quit Alcohol Use Standard Drinks/Week Comments No 0 (1 standard drink = 0.6 oz pur e alcohol) Comments No Sex and Gender Information Value Date Recorded Sex Assigned at Not on file Legal Sex Female 8:05 AM EST Gender Identity Not on file Sexual Orientation Not on file documented as of this encounter Plan of Treatment Not on file documented as of this encounter Visit Diagnoses Not on filedocumented in this encounter Care Teams Circulation Worker Relationship Specialty Start Date End Date Janina Castro MD [address] [place] [address] PCP - General Family Medicine 07/17/17 documented as of this encounter
--- OUTSIDE RECORDS SUMMARY | 2025-03-03 09:04 | XMS_ITS | Clinical Summary ---
Author Organization [facility] Address [address] [place] [address] Care Team Providers Care Night Filler Name Role Phone Unavailable Primary Care Provider Unavailabl e Social History Tobacco Use Types Packs/Day Years Used Date Smoking Tobacco: Never Assessed Comments Unknown Sex and Gender Information Value Date Recorded Sex Assigned at Not on file Legal Sex Female 6:45 PM EDT Gender Identity Not on file Sexual Orientation Not on file Plan of Treatment Not on file
--- OUTSIDE RECORDS SUMMARY | 2025-03-03 09:04 | XMS_ITS | Encounter Summary ---
Author Organization [facility] Address [facility] [place] [address] Care Team Providers Care Clerk Specialist Name Role Phone Janina Castro MD Primary Care Provider [phone] Source Comments In the event this information is protected by the Federal Confidentiality of Alcohol and Drug AbusePatient Records regulations: The Federal rules restrict any use of the information to criminally investigate or prosecute any alcohol or drug abuse patient.[facility] Encounter Details Date Type Department Care Team ([facility] Contact Info) Description 04/27/2019 Patient Msg Medical Records [address] [place] [address] Provider, Ccf Prescribed Patient Education Video(s) Social [...] on filedocumented in this encounter Care Teams Clerk Specialist Relationship Specialty Start Date End Date Janina Castro MD [address] [place] [address] PCP - General Family Medicine 07/17/17 documented as of this encounter
--- OUTSIDE RECORDS SUMMARY | 2025-03-03 09:04 | XMS_ITS | Patient Health Record ---
Author Organization [facility] Address [address] [place] [address] Care Team Providers Care Grinder Set Up Operator Gear Tool Name Role Phone Matthew Harman, Janina Primary Care Provider Unavail able RodríguezTommy bolanosen Unavailable [phone] Self, Referral Unavailable Unavailable MelaniePeggy Unavailable [phone] Jeramie Younger Unavailable [phone] Jose Ramon Sung Unavailable [phone] Sylvain Snyder Unavailable [phone] Allergies No Known Allergies Results Component Value Reference Range Notes Surgery Scheduling (Not yet reviewed by provider) Interpretation: Performing Lab: Notes/Report: Primary Insurance Company: Railroad Medicare Surgeon/Assist: Jeramie Younger MD Surgery Location: [facility] Surgery Date & Time: March 24, 2025 Procedure: Right Total Knee Art hroplasty CPT 26013 Special Equipment: Tayler Persona Diagnosis: Right Knee Pain/OA Admission Type: outpatient Anesthesia Type/CPNB: Regional/Spinal Bed 23 hr Lab Location: [facility] Stonehand: Makayla Ruiz Physician: Janina Zhao Reason For Referral Reason NO AUTH REQ...............................03/24/25............................[facility] Right Total Knee Artrhroplasty @ [facility] Diagnosi s 1 Primary osteoarthritis of right knee (M1 7.11) Diagnosi s 2 Right knee pain (M25.561) Referral [facility] Gabriel wu Provider First Name Jeramie wu Provider Last Name Aren wu Provider Speciali ty Orthopedic Surgery Referred Renu traore [facility] Referred Address [address],[place], [place],[place] Procedur e 1 Arthroplasty Knee Total Med/Lat Compartm ents (01675) General Notes Makayla Ko 02/23/2025 01:13:40 PM >, Dana Sebastian 02/23/2025 01:16:10 PM > MEDICARE PARTS A & B ACTIVE AND EFFECTIVE 03/13/10 PER AVAILITY WITH [facility]. NO AUTHORIZATION REQUIRED. FAXED TO [facility].Maikel Kelly 02/23/2025 02:05:39 PM > Referral Priority Routine Medications Medication SIG (Take, Route, Fr equency, Duration) Notes Start Date End Date Status nitroglycerin Active Turmeric Active Vitamin D3 Active dicyclomine Active halobetasol topical Active busPIRone Active Tylenol Active metoprolol Active aspirin Active Fish Oil Active Vitamin C Active levothyroxine Active Glucosamine Chondroitin Active atorvastatin Active Social History Tobacco Use: [...] Status Risk Notes Problem Osteoarthritis of knee (999625909) Primary osteoarthritis of right knee (M17.11) Active confirmed Vital Signs Height 5'1 in 02/21/2025 Weight 168 lbs 02/21/2025 BMI 31.74 02/21/2025 Encounters Encounter Location Date Provider Diagnosis [facility] [address] [place] [address] 02/16/2025 Peggy Navarro Acute pain of right knee M25.561 [facility] [address] [place] [address] 02/21/2025 Sylvain Snyder Primary osteoarthrit is of right knee M17.11 ; 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 ; Encounter for preprocedural cardiovascular examination Z01.810 ; Encounter for other preprocedural examination Z01.818 and Right knee pain M25.561 [place] [address] [place] [address] 02/22/2025 Jose Ramon Sung [place] [address] [place] [address] 02/22/2025 Jeramie Younger Assessments Encounter Date Diagnosis (ICD Code) Assessment Notes Treatment Notes Treatment Clinical Notes Section Notes 02/16/2025 Acute pain of right knee (ICD-10 - M25.561) 02/21/2025 Carrier or suspected carrier of Methicillin resistant Staphylococcus aureus (ICD-10 - Z22.322) Right knee pain Right knee OA 02/21/2025 Primary osteoarthritis of right knee (ICD-10 - M17.11) Right knee pain Right knee OA 02/21/2025 Encounter for preprocedural cardiovascular examination (ICD-10 - Z01.810) Right knee pain Right knee OA 02/21/2025 Encounter for other preprocedural examination (ICD-10 - Z01.818) Right knee pain Right knee OA 02/21/2025 Right knee pain (ICD-10 - M25.561) Right knee pain Right knee OA 02/16/2025 Other At this point, we discussed treatment options and alternatives with the patient. Given her failure to improve with several conservative treatments I have recommended a referral to Dr. Younger for further discussion and recommendations with respect to a total knee arthroplasty. We will otherwise follow up on an as-needed basis. 02/21/2025 Other Discussed treatment options at length [...] pain Right knee OA Plan Of Treatment Pending Test Test Name Order Date Chest 2 views - 68097 02/21/2025 PT/ INR - 51996 02/21/2025 EKG 02/21/2025 CBC 02/21/2025 CMP 02/21/2025 Surgery Scheduling 02/23/2025 MRSA (Bilateral Nares) PCR 02/21/2025 APTT 02/21/2025 UA with Reflex C & S 02/21/2025 SCC- KNEE 4 VIEW RIGHT [id number] 02/16/2025 RSS- PT- s/p total knee 2-3 x per week f or 6 weeks 02/21/2025 Next Appt Details Provider Name:Jeramie Younger, 03/14/2025 10:30:00 AM, [address], [address], [place], [address], Provider Name:Jeramie Younger, 03/24/2025 09:30:00 AM, [address] [place] [address] [place], [address], Provider Name:Jeramie Younger, 04/11/2025 09:50:00 AM, [address], [facility] [address], [place], [address], Insurance Providers Payer Name Payer Address Payer Phone Subscriber Number Group Number Insured Name Patient Relationship to Insured Coverage Start Date Coverage End Date [employer] Medicare [address] [address] [place] [address] [id number] GARTH OLGUIN Self - patient is the insured [address] [place] [address] [address] [address] [place] [address] [id number] FRANTZ OLGUIN Spouse - patient is the spouse of the insured 5 Medical (General) History Medical History History ICD Code Heart attack: Yes Cancer: Yes Cancer Type: Other Chronic back pain:: Yes Heart Attack: Yes High Blood Pressure: Yes Asthma/COPD Hypothyroidism GI Problems: Surgical History Surgery Date(Month/Year) lt knee torn meniscus 2010 heart stents 2017 thyroidectomy 2019
--- OUTSIDE RECORDS SUMMARY | 2025-03-03 09:04 | XMS_ITS | Encounter Summary ---
Author Organization [facility] Address [address] [place] [address] Phone Care Team Providers Care Express Clerk Name Role Phone Janina Castro MD Primary Care Provider Reason for Visit * Reason Onset Date Comments Lab Orders 02/24/2025 Encounter Details Date Type Department Care Team (Late st Contact Info) Description 02/24/[address] [facility] [address] [place] [address] Lynnette Crawley LPN Lab Orders Social History Tobacco Use Types Packs/Day Years Used Date Smoking Tobacco: Former Cigarettes Q uit: 1986 Smokeless Tobacco: Never Alcohol Use Standard Drinks/Week Comments Never 0 [...] AM EDT documented as of this encounter Miscellaneous Notes * Addendum Note - Lynnette Crawley LPN - 03/01/2025 2:58 PM EDTAddended by: LYNNETTE CRAWLEY on: 03/01/2025 02:58 PM Modules accepted: Orders * Telephone Encounter - Lynnette Crawley LPN - 03/01/2025 2:58 PM EDT Will need updated with lab order is signed. * Telephone Encounter - Lynnette Crawley LPN - 02/24/2025 3:22 PM EDT Patient called regarding and order from February 2024. Order was for lab work. See chart. Patient had anoffice visit today and states no lab work was ordered. Order is a year old. Patients states she hasnot had lab work in the past year. Will inquire with Dr. Lul Rose, DO documented in this encounter Plan of Treatment Upcoming Encounters Date Type Department Care Team (Late st Contact Info) Description 03/17/2025 8:00 AM EDT Appointment [place] [address] [place] [address], [place] [address] 03/17/2025 8:30 AM EDT Appointment [place] [address] [place] [address] 03/17/2025 9:00 AM EDT Appointment [place] [address] [facility] [address] [place] [address] 03/17/2025 9:30 AM EDT Appointment [place] [address] [place] [address] 03/17/2025 9:45 AM EDT Appointment [place] [address] [place] [address] 02/16/2026 9:45 AM EDT Appointment [address] [place] [address] 03/01/2026 10:30 AM EDT Office Visit [address] [place] [address] Lul Rose, [address] [facility] [address] [place] [address] Scheduled Orders Name Type Priority Associated Diagnoses Orde r Schedule Basic Metabolic Panel Lab Routine Essential hypertension Expected: 03/01/2025 (Approximate), Expires: 03/01/2026 Lipid Panel Lab Routine Hyperlipidemia, unspecified hyperlipidemia type Expected: 03/01/2025 (Approximate), Expires: 03/01/2026 Alanine Aminotransferase Lab Routine Hyperlipidemia, unspecified hyperlipidemia type Expected: 03/01/2025 (Approximate), Expires: 03/01/2026 Aspartate Aminotransferase Lab Routine Hyperlipidemia, unspecified hyperlipidemia type Expected: 03/01/2025 (Approximate), Expires: 03/01/2026 documented as of this encounter Visit Diagnoses Diagnosis Essential hypertension Unspecified essential hypertension Hyperlipidemia, unspecified hyperlipidemia type documented in this encounter Additional Health Concerns Assessment Noted Time A fall risk assessment has been complete d for the patient 02/25/2024 10:28 AM EDT documented as of this encounter Care Teams Express Clerk Relationship Specialty Start Date End Date Janina Castro MD [address] [place] [address] PCP - General 04/03/21 documented as of this encounter
--- OUTSIDE RECORDS SUMMARY | 2025-03-03 09:04 | XMS_ITS | Encounter Summary ---
Author Organization [facility] Address [address] [place] [address] Care Team Providers Care Property Site Manager Name Role Phone Janina Castro MD Primary Care Provider [phone] Source Comments In the event this information is protected by the Federal Confidentiality of Alcohol and Drug AbusePatient Records regulations: The Federal rules restrict any use of the information to criminally investigate or prosecute any alcohol or drug abuse patient.[facility] Encounter Details Date Type Department Care Team (Late st Contact Info) Description 10/04/2019 Get Medical Advice [facility] [address] [place] [address] [place] [address] [facility] [address] [place] [address] RE: Visit Follow Up Question Social History Tobacco Use Types Packs/Day Years Used Date Smoking Tobacco: Former Cigarettes 1 15 1 971 - 1986 Smokeless Tobacco: Never Alcohol Use Standard Drinks/Week Comments No 0 (1 standard drink = 0.6 oz pur e alcohol) PHQ-2 Answer Date Recorded PHQ2 Score 0 05/24/2019 Comments No Sex and Gender Information Value Date Recorded Sex Assigned at Not on file Legal Sex Female 8:05 AM EST Gender Identity Not on file Sexual Orientation Not on file documented as of this encounter Plan of Treatment Not on file documented as of this encounter Visit Diagnoses Not on filedocumented in this encounter Care Teams Property Site Manager Relationship Specialty Start Date End Date Janina Castro MD [address] [place] [address] PCP - General Family Medicine 07/17/17 documented as of this encounter
--- OUTSIDE RECORDS SUMMARY | 2025-03-03 09:04 | XMS_ITS | Encounter Summary ---
Author Organization [facility] tem Address [id number] [address] [place] [address] Care Team Providers Care Sap Enterprise Portal Consultant Name Role Phone Unavailable Primary Care Provider Unavailabl e Encounter Details Date Type Department Care Team (Late st Contact Info) Description 04/17/2023 Orders Only [facility] [address] [place] [address] Janina Castro MD [address] [place] [address] Social History Tobacco Use Types Packs/Day Years Used Date Smoking Tobacco: Never Assessed Childcare Answer Date Recorded Childcare Unknown 03/24/2019 Employment Answer Date Recorded Employment Unknown 03/24/2019 Comments Unknown Sex and Gender Information Value Date Recorded Sex Assigned at Female 05/13/2023 7:19 PM EDT Legal Sex Female 12:06 PM EDT Gender Identity Female 05/13/2023 7:19 PM EDT Sexual Orientation Not on file documented as of this encounter Plan of Treatment Not on file documented as of this encounter Procedures Procedure Name Priority Date/Time Associated Diagnosis Comments MR LUMBAR SPINE WO CONT Routine 05/07/2021 documented in this encounter Results * MR lumbar spine without contrast (05/07/2021) Anatomical Region Laterality Modality MSK, Neuro, Spine, L-spine, Spine Covera N/A Magnetic Resonance us Janina Castro MD IMG MRI ORDERABLES Final Resul t documented in this encounter Visit Diagnoses Not on filedocumented in this encounter
--- OUTSIDE RECORDS SUMMARY | 2025-03-03 09:04 | XMS_ITS | Clinical Summary ---
Author Organization [facility] Address [address] [place] [address] Care Team Providers Care Wastewater Project Engineer Name Role Phone Janina Castro MD Primary Care Provider [phone] Allergies Active Allergy Reactions Criticality Noted Date Comments Ciprofloxacin Other: See Comments 04/27/2019 Causes Tendon problems Nickel Rash 07/31/2006 Medications MULTIVITAMIN TAB Take one(1) tablet daily. 0 6 Active metoprolol tartrate, short acting, (LOPRESSOR) 25 mg tablet Take 0.5 tablets by mouth twice daily. 7 Active busPIRone (BUSPAR) 5 mg tablet as needed 1 7 Active ubidecarenone Q-10 (CO Q-10) 10 mg capIndications:Mese nteric ischemia (HCC),Primary hypercoagulable state (HCC),Coronary artery disease involving emmonak heart without angina pectoris, unspecified vessel or lesion type Take by mouth twice daily. 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 3 x a week Active BABY ASPIRIN ORALIndications:Do not start taking until 05/27/2019 Take by mouth. Active glucosamine HCl/chondroitin crum (GLUCOSAMINE-CHONDR OITIN ORAL) Take by mouth. Active Lactobacillus acidophilus (PROBIOTIC ORAL) Take by mouth. Active CANNABIDIOL, CBD, EXTRACT ORAL Take 1 Drop by mouth as needed. Active thiamine (VITAMIN B-1) 100 mg tablet Take 100 mg by mouth once daily. Active loratadine (CLARITIN) 10 mg tablet Take 10 mg by mouth as needed. Active acetaminophen (TYLENOL) 500 mg tablet Take 1 tablet by mouth every 4 hours as needed. 9 Active calcium carbonate (TUMS) 500 mg chew Take 1 tablet by mouth every hour as needed (mouth or hand numbness or tingling). 9 Active ibuprofen (MOTRIN) 600 mg tablet Take 1 tablet by mouth every 6 hours as needed. 9 Active uwrdlhz-udfwfxkql-r itamin D3 500 mg(1,250mg) -200 unit per tablet Take 2 tablets by mouth three times daily. 180 tablet 9 Active levothyroxine (SYNTHROID) 88 mcg tablet Take 1 tablet by mouth once daily. 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 01/08/2018 Multinodular thyroid 06/04/2017 Hyperthyroidism 06/04/2017 Family History Medical History Relation Comments Emphysema Father Heart disease Father lung disease Father Cancer Mother Cerebral aneurysm Mother Relation Status Comments Father Mother Social History Tobacco Use Types Packs/Day Years Used Date Smoking Tobacco: Former Cigarettes 1 15 1 971 - 1986 Smokeless Tobacco: Never Alcohol Use Standard Drinks/Week Comments No 0 (1 standard drink = 0.6 oz pur e alcohol) PHQ-2 Answer Date Recorded PHQ2 Score 0 05/24/2019 Area Deprivation Index Answer Date Kyle rded National Score (1-100), lower number is lower ri sk Not on file 09/17/2020 State Score (1-10), lower number is lower risk N ot on file 09/17/2020 Data from: https://www.neighborhoodatlas.medicine.[facility].edu/. Last address used for calculation Not on file 09/17/2020 Comments No Sex and Gender Information Value Date Recorded Sex Assigned at Not on file Legal Sex Female 8:05 AM EST Gender Identity Not on file Sexual Orientation Not on file Last Filed Vital Signs Vital Sign Reading Time Taken Comments Blood Pressure 110/72 06/08/2019 11:54 AM EDT Pulse 55 06/08/2019 11:54 AM EDT Temperature 36.7 C (98 F) 05/25/2019 5:50 AM EDT Respiratory Rate 18 05/25/2019 5:50 AM EDT Oxygen Saturation 95% 05/25/2019 5:50 AM EDT Inhaled Oxygen Concentration - - Weight 86.7 kg (191 lb 3.2 oz) 06/08/2019 11:54 AM EDT Height 165.7 cm (5' 5.24 ) 06/08/2019 11:54 AM E DT Body Mass Index 31.59 06/08/2019 11:54 AM EDT Plan of Treatment Health Maintenance Due Date Last Done Comments Anxiety Screening 1970 Depression Screening 1970 Hepatitis C Screening 1970 DTaP,Tdap,Td Vaccine (1 - Tdap) [address] Colonography 1997 Cologuard (FIT-DNA) 1997 Colonoscopy 1997 Colorectal Cancer Screening 1997 Fecal Occult Blood 1997 Lipid Screening 1997 Sigmoidoscopy 1997 Pneumococcal Vaccine: 50+ (1 of 1 - PCV) 2002 Shingrix Vaccine (1 of 2) 2002 Bone Density Screening 2017 Diabetes Screening 05/12/2022 05/12/2019, 0 06/03/2018, 05/19/2018, Additional history exists Covid-19 Vaccine (1 - 2023-2 5 season) 2024 Advance Directive Discussion 10/13/2024 Influenza Vaccine (Season Ended) 2025 RSV Vaccine (1 - 1-dose 75+ series) 2027 Procedures Procedure Name Priority Date/Time Associated Diagnosis Comments COMPREHENSIVE METABOLIC PANEL Routine 05/12/2019 11:14 AM EDT Preoperative examination from Last 3 Months or Most Recently Relevant to Health Maintenance Results * COMP METABOLIC PANEL (05/12/2019 11:14 AM EDT) Protein, Total 7.1 6.3 - 8.0 g/dL 05/12/2019 8:20 PM EDT [facility] Albumin 4.5 3.9 - 4.9 g/dL 05/12/2019 8:20 PM EDT [facility] Calcium 9.7 8.5 - 10.2 mg/dL 05/12/2019 8:20 PM [facility] Bilirubin, Total 0.4 0.2 - 1.3 mg/dL 05/12/2019 8:20 PM [facility] Alkaline Phosphatase 76 34 - 123 U/L 05/12/2019 8:20 PM [facility] AST 23 13 - 35 U/L 05/12/2019 8:20 PM [facility] Glucose 84 74 - 99 mg/dL 05/12/2019 8:20 PM [facility] Comment: The [place] Diabetes Association (ADA) provides guidance for cutoff values for fasting glucose and random glucose. The ADA defines fasting as no caloric intake for at least 8 hours. Fasting plasma glucose results between 100 to 125 mg/dL indicate increased risk for diabetes (prediabetes). Fasting plasma glucose results greater than or equal to 126 mg/dL meet the criteria for diagnosis of diabetes. In the absence of unequivocal hyperglycemia, results should be confirmed by repeat testing. In a patient with classic symptoms of hyperglycemia or hyperglycemic crisis, random plasma glucose results greater than or equal to 200 mg/dL meet the criteria for diagnosis of diabetes. Reference: Standards of Medical Care in Diabetes 2016, [place] Diabetes Association. Diabetes Care. 2016.39(Suppl 1). BUN 13 7 - 21 mg/dL 05/12/2019 8:20 PM [facility] Creatinine 0.67 0.58 - 0.96 mg/dL 05/12/2019 8:20 PM [facility] Sodium 141 136 - 144 mmol/L 05/12/2019 8:20 PM [facility] Potassium 4.1 3.7 - 5.1 mmol/L 05/12/2019 8:20 PM [facility] Chloride 104 97 - 105 mmol/L 05/12/2019 8:20 PM [facility] CO2 26 22 - 30 mmol/L 05/12/2019 8:20 PM [facility] Anion Gap 11 9 - 18 mmol/L 05/12/2019 8:20 PM [facility] ALT 17 7 - 38 U/L 05/12/2019 8:20 PM [facility] eGFR- >60 05/12/2019 8:20 PM [facility] eGFR-All Other Races >60 . 05/12/2019 8:20 PM EDT [facility] Comment: eGFR (Estimated GFR) Units of measure: mL/min/1.73 meters squared eGFR is derived from the reexpressed MDRD Study equation using the following parameters: serum creatinine, age, gender and race. The creatinine assay has been calibrated to be traceable to IDMS. An eGFR <60 mL/min/1.73m2 for >3 months is consistent with chronic kidney disease. Refer to KDOQI guidelines for clinical interpretation. In patients with unstable renal function, e.g. those with acute kidney injury, the eGFR may not accurately reflect actual GFR. Blood specimen (specimen) BLOOD SPECIMEN / Unknown 05/12/2019 11:14 AM EDT 05/12/2019 11:16 AM EDT us Geno Minor MD LABORATORY Final Res ult [facility] [address] [place] [address] [facility] [address] [place] [address] from Last 3 Months or Most Recently Relevant to Health Maintenance Insurance MEDICARE MEDICARE [employer] Care Teams Wastewater Project Engineer Relationship Specialty Start Date End Date Janina Castro MD [address] [place] [address] PCP - General Family Medicine 07/17/17
--- OUTSIDE RECORDS SUMMARY | 2025-03-03 09:04 | XMS_ITS | Encounter Summary ---
Author Organization [facility] Address [address] [place] [address] Care Team Providers Care Co Founder And President Name Role Phone Janina Castro MD Primary Care Provider [phone] Source Comments In the event this information is protected by the Federal Confidentiality of Alcohol and Drug AbusePatient Records regulations: The Federal rules restrict any use of the information to criminally investigate or prosecute any alcohol or drug abuse patient.[facility] Encounter Details Date Type Department Care Team (Late st Contact Info) Description 08/29/2017 Get Medical Advice Endocrinology [address] [facility] [address], [address] [place] [address] [place] [address] [facility] [address] [place] [address] Medication Question (Not Renewal) Social History Tobacco Use Types Packs/Day Years Used Date Smoking Tobacco: Former Cigarettes 1 15 Comments:quit Alcohol Use Standard Drinks/Week Comments No [...] on filedocumented in this encounter Care Teams Co Founder And President Relationship Specialty Start Date End Date Janina Castro MD [address] [place] [address] PCP - General Family Medicine 07/17/17 documented as of this encounter
--- OUTSIDE RECORDS SUMMARY | 2025-03-03 09:04 | XMS_ITS | Encounter Summary ---
Author Organization [facility] Address [address] [place] [address] Phone Care Team Providers Care Manager Life Name Role Phone Janina Castro MD Primary Care Provider [phone] Encounter Details Date Type Department Care Team (Latest Contact Info) Description 02/24/2025 Travel Social History Tobacco Use Types Packs/Day Years [...] AM EDT documented as of this encounter Plan of Treatment Upcoming Encounters Date Type Department Care Team (Late st Contact Info) Description 03/17/2025 8:00 AM EDT Appointment [address] [address] 03/17/2025 8:30 AM EDT Appointment [address] [address] 03/17/2025 9:00 AM EDT Appointment [address] [address] 03/17/2025 9:30 AM EDT Appointment [facility] [address] [facility] [address] [place] [address] 03/17/2025 9:45 AM EDT Appointment [facility] [address] [place] [address] [address] [place] [address] 02/16/2026 9:45 AM EDT Appointment [facility] [address] [facility] [address] [place] [address] 03/01/2026 10:30 AM EDT Office Visit [place] [id number] [facility] [address] [place] [phone] Lul Rose 703 [facility] [address], [address] [place] [address] documented as of this encounter Visit Diagnoses Not on filedocumented in this encounter Additional Health Concerns Assessment Noted Time A fall risk assessment has been complete d for the patient 02/25/2024 10:28 AM EDT documented as of this encounter Care Teams Manager Life Relationship Specialty Start Date End Date Janina Castro MD [address] [place] [address] PCP - General 04/03/21 documented as of this encounter
--- OUTSIDE RECORDS SUMMARY | 2025-03-03 09:04 | XMS_ITS | Encounter Summary ---
Author Organization [facility] Address [address] [place] [address] Care Team Providers Care Regulatory Affairs Director Name Role Phone Janina Castro MD Primary Care Provider [phone] Source Comments In the event this information is protected by the Federal Confidentiality of Alcohol and Drug AbusePatient Records regulations: The Federal rules restrict any use of the information to criminally investigate or prosecute any alcohol or drug abuse patient.[facility] Encounter Details Date Type Department Care Team (Late st Contact Info) Description 11/08/2019 Get Medical Advice [facility] [address] [place] [address] [place] [address] [facility] [address] [place] [address] RE: Upcoming Appointment Question Social History Tobacco Use Types Packs/Day [...] on filedocumented in this encounter Care Teams Regulatory Affairs Director Relationship Specialty Start Date End Date Janina Castro MD [address] [place] [address] PCP - General Family Medicine 07/17/17 documented as of this encounter
--- OUTSIDE RECORDS SUMMARY | 2025-03-03 09:04 | XMS_ITS | Encounter Summary ---
Author Organization [facility] tem Address [id number] [address] [place] [address] Care Team Providers Care Museum Educator Name Role Phone Unavailable Primary Care Provider Unavailabl e Encounter Details Date Type Department Care Team (Late st Contact Info) Description 04/21/2023 Orders Only [facility] [address] [place] [phone] Ref Prov, [place] [address] Social History Tobacco Use Types Packs/Day Years [...] Procedure Name Priority Date/Time Associated Diagnosis Comments CT ABDOMEN AND PELVIS W CONT Routine 05/07/2022 documented in this encounter Results * CT abdomen and pelvis with contrast (05/07/2022) Anatomical Region Laterality Modality Body, Abdomen, Body Covera N/A Compu harman Tomography us Not In System Ref Prov IMG CT ORDERABLES Final R esult documented in this encounter Visit Diagnoses Not on filedocumented in this encounter
--- OUTSIDE RECORDS SUMMARY | 2025-03-03 09:04 | XMS_ITS | Encounter Summary ---
Author Organization [facility] Address [address] [address] Care Team Providers Care Deployment Specialist Name Role Phone Janina Castro MD Primary Care Provider [phone] Source Comments In the event this information is protected by the Federal Confidentiality of Alcohol and Drug AbusePatient Records regulations: The Federal rules restrict any use of the information to criminally investigate or prosecute any alcohol or drug abuse patient.[facility] Encounter Details Date Type Department Care Team (Late st Contact Info) Description 10/24/2017 Get Medical Advice Endocrinology [address] [facility] [address]LO[address], [address] [place] [address] [place] [address] [facility] [address] [place] [address] RE: Medication Question (Not Renewal) Social History Tobacco [...] on file documented as of this encounter Miscellaneous Notes * Telephone Encounter - Rox Amezcua (Pcna), PCNA - 10/27/2017 12:32 PM EST Patient would like to speak with you MACK regarding mychart message from last week. Please advise. Rox Amezcua Psr * Telephone Encounter - Sylvia RaymundoRn), RN - 10/24/2017 12:18 PM EST Patient also called and LM on refill line regarding message below. Thank you, Sylvia Raymundo R.N. documented in this encounter Plan of Treatment Not on file documented as of this encounter Visit Diagnoses Not on filedocumented in this encounter Care Teams Deployment Specialist Relationship Specialty Start Date End Date Janina Castro MD [address] [place] [address] PCP - General Family Medicine 07/17/17 documented as of this encounter
--- OUTSIDE RECORDS SUMMARY | 2025-03-03 09:04 | XMS_ITS | Clinical Summary ---
Author Organization [facility] Address [address] [place] [address] Care Team Providers Care Data Analyst Name Role Phone Janina Castro MD Primary Care Provider [phone] Allergies Active Allergy Reactions Criticality Noted Date Comments Beta Adrenergic Blockers 06/07/2023 Ciprofloxacin 04/23/2018 Causes tendon isuues Leucine 05/29/2017 Losartan Hives,Other (See Comments) 05/04/2018 Nickel 07/31/2006 Other/Food 07/12/2013 metal Medications halobetasol (ULTRAVATE) 0.05 % cream USE NEEDED 2 6 Active Multiple Vitamins-Calciu m (ONE-A-DAY WOMENS FORMULA PO) Take by mouth Active aspirin 81 MG tabletIndicatio ns:STOP 7 DAYS PRIOR Take 1 tablet by mouth daily Indications: STOP 7 DAYS PRIOR Active nitroGLYCERIN (NITROSTAT) 0.[address] 1 tablet under the tongue every 5 minutes as needed for Chest pain up to max of 3 total doses. If no relief after 1 dose, call 911. Active atorvastatin (LIPITOR) 20 MG tablet Take 1 tablet by mouth Active levothyroxine (SYNTHROID) 100 MCG tablet 2 Active metoprolol succinate (TOPROL XL) 25 MG extended release tablet 2 Active dicyclomine (BENTYL) 20 MG tablet Take 1 tablet by mouth Active glucosamine-cho ndroitin 500-400 MG tablet Take by mouth Active MULTIPLE VITAMIN PO Multivitamin preparation (18 sources) Active sulfamethoxazol e-trimethoprim (BACTRIM DS;SEPTRA DS) 800-160 MG per tablet Take by mouth Active busPIRone (BUSPAR) 5 MG tablet Take 1 tablet by mouth 3 times daily Active Active Problems Problem Noted Date Diagnosed Date JAZMYN MROEIRAO, Cytologic washings, Peritoneal biopsie s 06/02/18 06/02/2018 Essential hypertension 06/02/2018 Endometrial cancer 04/23/2018 Cancer Staging:Clinical stage from 06/03/2018:FIGO Stage IA(ycT1a, cN0(sn), cM0) - Signed by Farhad Mendez MD on 06/03/2018 Pathologic stage from 06/03/2018:FIGO Stage IA(ypT1a, pN0(sn), cM0) - Signed by Farhad Mendez MD on 06/03/2018 Coronary artery disease invo lving [place] heart without angina pectoris 01/08/2018 Mesenteric ischemia 01/08/2018 Primary hypercoagulable state 01/08/2018 Hyperthyroidism 06/04/2017 Multinodular goiter 06/04/2017 Post-op pain Resolved Problems Problem Noted Date Diagnosed Date Resolved Date Endometrial 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/23/2018 1 History of robot-assisted la paroscopic hysterectomy 06/02/2018 01/04/2020 Family History Medical History Relation Name Comments Cancer Mother pancreatic Other Other No family h/o o varian or breast cancer. No family h/o DVt. Relation Name Status Comments Brother Alive Father Maternal Grandfather Maternal Grandmother Mother Other Other Paternal Grandfather Paternal Grandmother Sister 1 Alive Sister 2 Alive Social History Tobacco Use Types Packs/Day Years Used Date Smoking Tobacco: Former Smokeless Tobacco: Never Tobacco Cessation:Counseling Given: Not Answered Alcohol Use Standard Drinks/Week Comments No 0 (1 standard drink = 0.6 oz pur e alcohol) Comments No Sex and Gender Information Value Date Recorded Sex Assigned at Not on file Legal Sex Female 10:32 AM EDT Gender Identity Not on file Sexual Orientation Not on file Last Filed Vital Signs Vital Sign Reading Time Taken Comments Blood Pressure 130/62 05/12/2024 2:03 PM EDT Pulse 51 02/25/2019 10:06 AM EDT Temperature 36.4 C (97.5 F) 02/25/2019 10:06 AM EDT Respiratory Rate 19 06/03/2018 8:25 AM EDT Oxygen Saturation 98% 02/25/2019 10:06 AM EDT Inhaled Oxygen Concentration - - Weight 79.8 kg (176 lb) 05/12/2024 2:03 PM EDT Height 163.8 cm (5' 4.5 ) 05/12/2024 2:03 PM EDT Body Mass Index 29.74 05/12/2024 2:03 PM EDT Plan of Treatment Upcoming Encounters Date Type Department Care Team (Latest Contact Info) Description 03/24/2025 10:04 AM EDT Hospital Encounter [facility] OR [address] [place] [address] Jeramie Younger MD [address] [place] [address] 03/24/2025 10:04 AM EDT - 03/24/2025 12:[address] [facility] [address] [place] [address] Jeramie Younger MD [address] [place] [address] RIGHT TOTAL KNEE ARTHROPLASTY 05/16/2025 11:10 AM EDT Office Visit [facility] Part of [address] [place] [address] Shelby Castillo, LETY - [address] [place] [address] yearly--last seen by Dr Gutierrez Scheduled Procedures Name Priority Associated Diagnoses Date/Ti me KNEE TOTAL ARTHROPLASTY Right knee pain, unspecified chronicity Osteoarthritis of right knee, unspecified osteoarthritis type 03/24/2025 10:04 AM EDT Health Maintenance Due Date Last Done Comments Lipids 1962 Depression Screen 1964 Hepatitis C screen 1970 DTaP/Tdap/Td vaccine (1 - Tdap) 1971 Colonoscopy 1997 Colorectal Cancer Screen 1997 FIT/FOBT: Average risk 1997 Fecal-DNA (Cologuard): Average risk 1997 Sigmoidoscopy/CT colonography 1997 Shingles vaccine (1 of 2) 2002 DEXA (modify frequency per FRAX score) 2007 Annual Wellness Visit (Medicare) 09/08/2023 COVID-19 Vaccine ( season) 2024 03/13/2023, 08/15/2022, 08/11/2021, Additional history exists Flu vaccine (Season Ended) 05/13/202507/30, 07/27/2021, 07/26/2021, Additional history exists Breast cancer screen 05/26/2026 05/26/2024, 08/01/2021, 07/07/2020 Respiratory Syncytial Virus (RSV) or age 60 yrs+ (1 - 1-dose 75+ series) 2027 Pneumococcal 50+ years Vaccine Completed 06/25/2021, 07/18/2020, 07/13/2020 Hepatitis A vaccine Aged Out No longe r eligible based on patient's age to complete this topic Hepatitis B vaccine Aged Out No longe r eligible based on patient's age to complete this topic Hib vaccine Aged Out No longer eligi ble based on patient's age to complete this topic Meningococcal (ACWY) vaccine Aged Out No longer eligible based on patient's age to complete this topic Meningococcal B vaccine Aged Out No l onger eligible based on patient's age to complete this topic Polio vaccine Aged Out No longer elig ible based on patient's age to complete this topic Medical Devices Implanted Type Area Porcelain Waxer Device Identifier Shelf Expiration Date Model / Serial / Lot Stent X2 N/A: Heart Procedures Procedure Name Priority Date/Time Associated Diagnosis Comments [facility] TYREL DIGITAL SCREEN BILATERAL Routine 05/26/2024 Screening mammogram, encounter for from Last 3 Months or Most Recently Relevant to Health Maintenance Results * RAVINDRA TYREL DIGITAL SCREEN BILATERAL (05/26/2024) Anatomical Region Laterality Modality Breast Bilateral Mammography Jeovany Betancourt MD IMG MAMMOGRAPHY ORDERABLES Fi nal Result from Last 3 Months or Most Recently Relevant to Health Maintenance Insurance [facility] Advance Directives * Full Code (Latest Code Status on File) Date Activated Date Inactivated Comments 06/02/2018 11:51 AM 06/03/2018 2:34 PM * Full Code Date Activated Date Inactivated Comments 06/02/2018 5:55 AM 06/02/2018 11:50 AM Care Teams Data Analyst Relationship Specialty Start Date End Date Janina Castro MD PCP - General Family Medicine 04/10/18
--- OUTSIDE RECORDS SUMMARY | 2025-03-03 09:04 | XMS_ITS | Encounter Summary ---
Author Organization [facility] Address [address] [place] [address] Care Team Providers Care Cloth Desizing Range Tender Name Role Phone Janina Castro MD Primary Care Provider [phone] Source Comments In the event this information is protected by the Federal Confidentiality of Alcohol and Drug AbusePatient Records regulations: The Federal rules restrict any use of the information to criminally investigate or prosecute any alcohol or drug abuse patient.[facility] Encounter Details Date Type Department Care Team (Late st Contact Info) Description 10/15/2017 Get Medical Advice Endocrinology [address] [facility] [address]LO[address], [address] [place] [address] [place] [address] [facility] [address] [place] [address] RE: Visit Follow Up Question Social History [...] on filedocumented in this encounter Care Teams Cloth Desizing Range Tender Relationship Specialty Start Date End Date Janina Castro MD [address] [place] [address] PCP - General Family Medicine 07/17/17 documented as of this encounter
--- OUTSIDE RECORDS SUMMARY | 2025-03-03 09:05 | XMS_ITS | Encounter Summary ---
Author Organization [facility] Address [address] [place] [address] Phone Care Team Providers Care Sorting Machine Operator Name Role Phone Janina Castro MD Primary Care Provider [phone] Encounter Details Date Type Department Care Team (Late st Contact Info) Description 02/28/2023 Orders Only [facility] [address] [place] [address] Conversion, Onbase Social History Tobacco Use Types Packs/Day Years [...] Info) Description 03/17/2025 8:00 AM EDT Appointment [address] [address] 03/17/2025 8:30 AM EDT Appointment [address] [address] 03/17/2025 9:00 AM EDT Appointment [address] [address] 03/17/2025 9:30 AM EDT Appointment [address] [address] 03/17/2025 9:45 AM EDT Appointment [facility] [address] [facility] [address] [place] [address] 02/16/2026 9:45 AM EDT Appointment [facility] [address] [facility] [address] [place] [address] 03/01/2026 10:30 AM EDT Office Visit [place] [address] [facility] [address] [place] [address] Lul Rose DO [address] [facility] [address] [place] [address] Scheduled Orders Name Type Priority Associated Diagnoses Orde r Schedule OUTSIDE LAB SCAN Lab Ordered: 02/28/2023 documented as of this encounter Visit Diagnoses Not on filedocumented in this encounter Care Teams Sorting Machine Operator Relationship Specialty Start Date End Date Janina Castro MD [address] [place] [address] PCP - General 04/03/21 documented as of this encounter
--- OUTSIDE RECORDS SUMMARY | 2025-03-03 09:05 | XMS_ITS | Encounter Summary ---
Author Organization [facility] Address [address] [place] [address] Care Team Providers Care Chief Psychologist Name Role Phone Janina Castro MD Primary Care Provider [phone] Source Comments In the event this information is protected by the Federal Confidentiality of Alcohol and Drug AbusePatient Records regulations: The Federal rules restrict any use of the information to criminally investigate or prosecute any alcohol or drug abuse patient.[facility] Encounter Details Date Type Department Care Team (Late st Contact Info) Description 04/14/2018 Patient Msg Endocrinology [address] [facility] FIRST [address]LOOR, [address] [place] [address] [place] [address] [facility] [address] [place] [address] RE:hyperthyroidism & hysterectomy Social History Tobacco Use Types Packs/Day Years [...] on filedocumented in this encounter Care Teams Chief Psychologist Relationship Specialty Start Date End Date Janina Castro MD [address] [place] [address] PCP - General Family Medicine 07/17/17 documented as of this encounter
--- OUTSIDE RECORDS SUMMARY | 2025-03-03 09:05 | XMS_ITS | Encounter Summary ---
Author Organization [facility] Address [address] [place] [address] Phone Care Team Providers Care Drapery Worker Name Role Phone Janina Castro MD Primary Care Provider [phone] Encounter Details Date Type Department Care Team (Late st Contact Info) Description 07/10/2023 Scanned Document [facility] [address] [place] [phone] Scanning, Generic Provider Social History Tobacco Use Types Packs/Day Years [...] Info) Description 03/17/2025 8:00 AM EDT [facility] [address] 03/17/2025 8:30 AM EDT Appointment [address] [address] 03/17/2025 9:00 AM EDT Appointment [address] [address] 03/17/2025 9:30 AM EDT Appointment [address] [address] 03/17/2025 9:45 AM EDT Appointment [place] [id number] [facility] [address] [place] [address] 02/16/2026 9:45 AM EDT Appointment [place] [id number] [facility] [address] [place] [address] 03/01/2026 10:30 AM EDT Office Visit [address] [place] [address] Lul Rose DO [address] [facility] [address] [place] [address] documented as of this encounter Visit Diagnoses Not on filedocumented in this encounter Care Teams Drapery Worker Relationship Specialty Start Date End Date Janina Castro MD [address] [place] [address] [place] [address] PCP - General 04/03/21 documented as of this encounter
--- OUTSIDE RECORDS SUMMARY | 2025-03-03 09:05 | XMS_ITS | Clinical Summary ---
Author Organization [facility] Address [address] [place] [address] Phone Care Team Providers Care Career Resource Technician Name Role Phone Janina Castro MD Primary Care Provider [phone] Allergies Active Allergy Reactions Criticality Noted Date Comments Ciprofloxacin Unknown 06/07/2023 Medications acetaminophen (TylenoL) 325 mg tablet Take 1-2 tablets (325-650 mg) by mouth every 4 hours if needed. Active ascorbic acid, vitamin C, 500 mg capsule Take 1 capsule by mouth once daily. Active atorvastatin (Lipitor) 20 mg tablet Take 1 tablet (20 mg) by mouth. Mon - fri only Active busPIRone (Buspar) 5 mg tablet Take 1 tablet (5 mg) by mouth if needed (anxiety). Use as directed Active cholecalciferol (Vitamin D-3) 25 MCG (1000 UT) tablet Take 1 tablet (25 mcg) by mouth once daily. Active dicyclomine (Bentyl) 20 mg tablet Take 1 tablet (20 mg) by mouth 4 times a day as needed. As directed Active HALOBETASOL PROPIONATE TOP Use as directed Active levothyroxine (Synthroid, Levoxyl) 88 mcg tablet Take 1 tablet (88 mcg) by mouth every other day. Active nitroglycerin (Nitrostat) 0.[address] 1 tablet (0.3 mg) under the tongue. Active xylitoL (XyliMelts) 550 mg muco-adhesive buccal tablet Take by mouth once daily. Active MULTIVITAMIN ORAL Take 1 tablet by mouth once daily. Active omega 1-bzq-mzb-fish oil (Fish OiL) 1,000 mg (120 mg-180 mg) capsule Take 1 capsule (1,000 mg) by mouth once daily. Active levothyroxine (Synthroid, Levoxyl) 100 mcg tablet Take 1 tablet (100 mcg) by mouth every other day. Active TURMERIC ORAL Take 1 capsule by mouth once daily. Active glucosamine-winter droitin 500-400 mg tablet Take 1 tablet by mouth early in the morning.. Active metoprolol succinate XL (Toprol-XL) 25 mg 24 hr tabletIndication s:Essential hypertension Take 1 tablet (25 mg) by mouth once daily. 90 tablet 3 4 04/12/20 25 Active diclofenac (Voltaren) 75 mg EC tablet Take 1 tablet (75 mg) by mouth if needed (pain). Do not crush, chew, or split. Active aspirin 81 mg EC tablet Take 1 tablet (81 mg) by mouth once daily. 02/25/20 Discontinu ed(Med List Cleanup) BACILLUS COAGULANS-INULIN ORAL Take 1 capsule by mouth once daily. 02/25/20 Discontinu ed(Med List Cleanup) Active Problems Problem Noted Date Diagnosed Date Preop cardiovascular exam 02/24/2025 ASHD (arteriosclerotic heart disease) 02/25/2024 BMI 29.0-29.9,adult 02/25/2024 Bilateral carotid artery stenosis 06/07/2023 Dizziness 06/07/2023 Essential hypertension 06/07/2023 History of PTCA 06/07/2023 Hyperlipidemia 06/07/2023 Myocardial infarction (Multi) 06/07/2023 PFO (patent foramen ovale) ([facility]) 06/07/2023 TIA (transient ischemic attack) 06/07/2023 Former smoker 06/07/2023 Resolved Problems Problem Noted Date Diagnosed Date Resolved Date Class 1 obesity with alveola r hypoventilation and body mass index (BMI) of 30.0 to 30.9 in adult 06/07/2023 02/25/2024 Encounters Date Type Department Care Team Description 02/24/2025 10:30 AM EDT Office Visit [address] [address] Lul Rose S, DO Preop cardiovascular exam; ASHD (arteriosclerotic heart disease); History of PTCA; Myocardial infarction, unspecified [place] type, unspecified artery (Multi); Mixed hyperlipidemia; Essential hypertension; PFO (patent foramen ovale) ([facility]); Bilateral carotid artery stenosis; TIA (transient ischemic attack); Former smoker; BMI 29.0-29.9,adult 02/24/2025 Telephone [facility] [address] [place] [address] Shayy Crawley LPN Lab Orders 02/24/2025 Travel from Last 3 Months Immunizations Immunization Administration Dates Next Due Influenza, seasonal, injectable 07/30/2022,07/13 Moderna COVID-19 vaccine, bi valent, blue cap/bunch label *Check age/dose* 08/15/2022 Moderna SARS-CoV-2 Vaccination 01/04/2021,2020 Pneumococcal polysaccharide vaccine, 23-valent, age 2 years and older (PNEUMOVAX 23) 06/25/2021,07/13/2020 Family History Medical History Relation Name Comments heart problem Father Pancreatic cancer Mother Stroke Mother Relation Name Status Comments Father Mother Social History Tobacco [...] No / Unsure 02/24/2025 10:15 AM EDT Last Filed Vital Signs Vital Sign Reading [...] Mass Index 29.52 02/24/2025 10:38 AM EDT Plan of Treatment Upcoming Encounters Date Type Department Care Team (Late st Contact Info) Description 03/17/2025 8:00 AM EDT Appointment [address] [place] [address] 03/17/2025 8:30 AM EDT Appointment [address] [place] [address] 03/17/2025 9:00 AM EDT Appointment [place] [address] [place] [phone] 03/17/2025 9:30 AM EDT Appointment [place] [address] [place] [address] 03/17/2025 9:45 AM EDT Appointment [address] [place] [address] 02/16/2026 9:45 AM EDT Appointment [place] [address] [place] [phone] 03/01/2026 10:30 AM EDT Office Visit [address] [place] [phone] Lul Rose, [address] [place] [address] 2, [facility] [address] [place] [address] Health Maintenance Due Date Last Done Comments CT Colonography 1952 FIT-DNA (Cologuard) 1952 FIT 1952 Lipid Panel 1952 Sigmoidoscopy 1952 TSH Level 1952 Diabetes Screening 1970 Hepatitis C Screening 1970 DTaP/Tdap/Td Vaccines (1 - Tdap) 1974 Zoster Vaccines (1 of 2) 2002 RSV High Risk: (Elderly (60+) or Population) (1 - Risk 60-74 years 1-dose series) 2012 COVID-19 Vaccine ( season) 2025 08/02/2024, 07/19/2024, 10/21/2023, Additional history exists Medicare Annual Wellness Visit (AWV) 02/10/2025 02/10/2024, 08/31/2021, 02/15/2021 Mammogram 05/26/2025 05/26/2024, 05/13, 08/01/2021, Additional history exists Influenza Vaccine (Season Ended) 2025 07/30/2022, 07/27/2021, 07/26/2021, Additional history exists Colonoscopy 12/04/2027 12/04/2017, 12/10/2013 Colorectal Cancer Screening 12/04/2027 Bone Density Scan Completed 10/13/2014 Pneumococcal Vaccine Completed 06/25/2021, 07/18/2020, 07/13/2020 HIB Vaccines Aged Out No longer eligi ble based on patient's age to complete this topic HPV Vaccines Aged Out No longer eligi ble based on patient's age to complete this topic Hepatitis A Vaccines Aged Out No long er eligible based on patient's age to complete this topic Hepatitis B Vaccines Aged Out No long er eligible based on patient's age to complete this topic IPV Vaccines Aged Out No longer eligi ble based on patient's age to complete this topic Meningococcal Vaccine Aged Out No johnny ami eligible based on patient's age to complete this topic Rotavirus Vaccines Aged Out No longer eligible based on patient's age to complete this topic Insurance MEDICARE [facility] Care Teams Career Resource Technician Relationship Specialty Start Date End Date Janina Castro MD [address] [place] [address] PCP - General 04/03/21
--- OUTSIDE RECORDS SUMMARY | 2025-03-03 09:05 | XMS_ITS | Encounter Summary ---
Author Organization [facility] Address [address] [place] [address] Phone Care Team Providers Care Machine Lead Burner Name Role Phone Janina Castro MD Primary Care Provider [phone] Encounter Details Date Type Department Care Team (Late st Contact Info) Description 08/26/2019 Orders Only [facility] [address] [place] [address] Conversion, Onbase Social History Tobacco Use Types [...] Info) Description 03/17/2025 8:00 AM EDT Appointment [address] [address] 03/17/2025 8:30 AM EDT Appointment [address] [address] 03/17/2025 9:00 AM EDT Appointment [address] [address] 03/17/2025 9:30 AM EDT Appointment [address] [address] 03/17/2025 9:45 AM EDT Appointment [facility] [address] [facility] [address] [place] [address] 02/16/2026 9:45 AM EDT Appointment [facility] [address] [facility] [address] [place] [phone] 03/01/2026 10:30 AM EDT Office Visit [place] [address] [facility] [address] [place] [phone] Lul Rose DO [address] [facility] [address] [place] [address] Scheduled Orders Name Type Priority Associated Diagnoses Orde r Schedule OUTSIDE LAB SCAN Lab Ordered: 08/26/2019 OUTSIDE LAB SCAN Lab Ordered: 08/26/2019 documented as of this encounter Visit Diagnoses Not on filedocumented in this encounter Care Teams Machine Lead Burner Relationship Specialty Start Date End Date Janina Castro MD [address] [place] [address] [place] [address] PCP - General 04/03/21 documented as of this encounter
--- OUTSIDE RECORDS SUMMARY | 2025-03-03 09:05 | XMS_ITS | Encounter Summary ---
Author Organization [facility] Address [address] [place] [address] Phone Care Team Providers Care Tire Stripper Name Role Phone Janina Castro MD Primary Care Provider [phone] Encounter Details Date Type Department Care Team (Late st Contact Info) Description 06/11/2020 Orders Only [facility] [address] [place] [address] Conversion, Onbase Social History Tobacco Use Types [...] Info) Description 03/17/2025 8:00 AM EDT Appointment [address] [address] 03/17/2025 8:30 AM EDT Appointment [address] [address] 03/17/2025 9:00 AM EDT Appointment [address] [address] 03/17/2025 9:30 AM EDT Appointment [address] [address] 03/17/2025 9:45 AM EDT Appointment [facility] 7[address] [facility] [address] [place] [address] 02/16/2026 9:45 AM EDT Appointment [facility] [address] [facility] [address] [place] [address] 03/01/2026 10:30 AM EDT Office Visit [place] [id number] [facility] [address] [place] [phone] Lul Rose DO [address] [facility] [address] [place] [address] Scheduled Orders Name Type Priority Associated Diagnoses Orde r Schedule OUTSIDE LAB SCAN Lab Ordered: 06/11/2020 documented as of this encounter Visit Diagnoses Not on filedocumented in this encounter Care Teams Tire Stripper Relationship Specialty Start Date End Date Janina Castro MD [address] [place] [address] [place] [address] PCP - General 04/03/21 documented as of this encounter
--- OUTSIDE RECORDS SUMMARY | 2025-03-03 09:05 | XMS_ITS | Encounter Summary ---
Author Organization [facility] Address [address] [place] [address] Phone Care Team Providers Care Wood Mill Supervisor Name Role Phone Janina Castro MD Primary Care Provider [phone] Encounter Details Date Type Department Care Team (Late st Contact Info) Description 04/25/2020 Orders Only [facility] [address] [place] [address] Conversion, Onbase Social History Tobacco Use Types [...] Description 03/17/2025 8:00 AM EDT Appointment [address] [address] 03/17/2025 8:30 AM EDT Appointment [address] [address] 03/17/2025 9:00 AM EDT Appointment [address] [address] 03/17/2025 9:30 AM EDT Appointment [address] [address] 03/17/2025 9:45 AM EDT Appointment [facility] [address]03 [facility] [address] [place] [address] 02/16/2026 9:45 AM EDT Appointment [facility] 703 [facility] [address] [place] [address] 03/01/2026 10:30 AM EDT Office Visit [place] [address] [facility] [address] [place] [phone] Lul Rose DO 703 [facility] [address] [place] [address] Scheduled Orders Name Type Priority Associated Diagnoses Orde r Schedule OUTSIDE LAB SCAN Lab Ordered: 04/25/2020 documented as of this encounter Visit Diagnoses Not on filedocumented in this encounter Care Teams Wood Mill Supervisor Relationship Specialty Start Date End Date Janina Castro MD [address] [place] [address] [place] [address] PCP - General 04/03/21 documented as of this encounter
--- OUTSIDE RECORDS SUMMARY | 2025-03-03 09:05 | XMS_ITS | Encounter Summary ---
Author Organization [facility] Address [address] [place] [address] Phone Care Team Providers Care General Utility Machine Operator Name Role Phone Janina Castro MD Primary Care Provider [phone] Encounter Details Date Type Department Care Team (Late st Contact Info) Description 02/13/2021 Orders Only [facility] [address] [place] [address] Conversion, Onbase Social History Tobacco Use Types [...] Info) Description 03/17/2025 8:00 AM EDT Appointment [address] [address] 03/17/2025 8:30 AM EDT Appointment [address] [address] 03/17/2025 9:00 AM EDT Appointment [address] [address] 03/17/2025 9:30 AM EDT Appointment [address] [address] 03/17/2025 9:45 AM EDT Appointment [facility] [address]03 [facility] [address] [place] [address] 02/16/2026 9:45 AM EDT Appointment [facility] [address] [facility] [address] [place] [address] 03/01/2026 10:30 AM EDT Office Visit [place] [address] [facility] [address] [place] [phone] Lul Rose DO [address] [facility] [address] [place] [address] Scheduled Orders Name Type Priority Associated Diagnoses Orde r Schedule OUTSIDE LAB SCAN Lab Ordered: 02/13/2021 OUTSIDE LAB SCAN Lab Ordered: 02/13/2021 documented as of this encounter Visit Diagnoses Not on filedocumented in this encounter Care Teams General Utility Machine Operator Relationship Specialty Start Date End Date Janina Castro MD [address] [place] [address] [place] [address] PCP - General 04/03/21 documented as of this encounter
[2025-03-03 09:22] LABS: Basophils Absolute Auto 0.1 10^3/uL (0.0-0.1); Basophils Percent Auto 1.2 % (0.2-2.0); Eosinophils Absolute Auto 0.3 10^3/uL (0.0-0.7); Eosinophils Percent Auto 3.6 % (0.9-7.0); Hematocrit 39.5 % (36.0-48.0); Hemoglobin 13.3 g/dL (12.0-16.0); Immature Granulocytes Abs Auto 0.01 10^3/uL (0.00-0.03); Immature Granulocytes Pct Auto 0.1 % (0.0-0.5); Lymphocytes Absolute Auto 3.1 10^3/uL (1.2-3.8); Lymphocytes Percent Auto 37.5 % (20.5-60.0); Mean Corpuscular HGB Conc 33.7 g/dL (29.9-35.2); Mean Corpuscular Hemoglobin 31.7 pg (26.7-34.0); Mean Corpuscular Volume 94.3 fL (81.0-99.0); Mean Platelet Volume 10.8 fL (9.5-13.5); Monocytes Absolute Auto 0.5 10^3/uL (0.3-0.8); Neutrophils Absolute Auto 4.3 10^3/uL (1.4-6.5); Neutrophils Percent Auto 51.6 % (43.0-75.0); Platelet Count 203 10^3/uL (150-450); Red Blood Count 4.19 10^6/uL (4.20-5.40); Red Cell Distribution Width 12.6 % (11.0-15.0); White Blood Count 8.3 10^3/uL (4.0-11.0)
[2025-03-03 09:22] LABS: Bilirubin Urine NEGATIVE (NEGATIVE); Blood Urine TRACE-I (NEGATIVE); Clarity Urine CLEAR (CLEAR); Color Urine LT. YELLOW (YELLOW); Glucose Urine UA NEGATIVE (NEGATIVE); Ketones Urine NEGATIVE (NEGATIVE); Leukocyte Esterase Urine SMALL (NEGATIVE); Nitrite Urine NEGATIVE (NEGATIVE); Protein Urine NEGATIVE (NEG/TRACE); Urobilinogen Urine 0.2 EU/dL (0.2-1.0)
[2025-03-03 09:23] LABS: Urine Microscopic Indicated YES
[2025-03-03 09:40] LABS: Bacteria Urine TRACE #/HPF (NONE SEEN); Cast Seen? NONE SEEN #/LPF (NONE SEEN); Crystals Seen? None Seen #/HPF (None Seen); Mucus Urine SMALL (NONE SEEN); RBC Urine 0-2 #/HPF (0-2); Squamous Epithelial Cell Urine FEW #/LPF (NONE/RARE); Transitional Epi Cells Urine FEW #/LPF (NONE SEEN); Urine Culture Indicated YES-FRMC
[2025-03-03 09:40] LABS: INR 0.97; Partial Thromboplastin Time 25.9 sec (22.3-36.2); Prothrombin Time 10.3 sec (9.0-11.6)
[2025-03-03 10:27] LABS: Alanine Aminotransferase 20 U/L (14-59); Albumin Globulin Ratio 1.2; Albumin Level 3.7 g/dL (3.4-5.0); Alkaline Phosphatase 74 U/L (46-116); Anion Gap 15.1; Aspartate Amino Transferase 21 U/L (15-37); BUN Creatinine Ratio 14.5; Bilirubin Total 0.5 mg/dL (0.2-1.0); Calcium 8.7 mg/dL (8.5-10.1); Chloride 106 mmol/L (98-107); Estimated GFR (African America >60 (>=60 mL/min/1.73m^2); Estimated GFR (Non-African Ame >60 (>=60 mL/min/1.73m^2); Glucose 104 mg/dL (74-106); Potassium 4.1 mmol/L (3.5-5.1); Sodium 142 mmol/L (136-145); Total Protein 6.7 g/dL (6.4-8.2)
== END 2025-03-03 09:03 | disposition home or self-care (01) ==
LOC: LAB 09:02
PROVIDERS: PCP Family Medicine
DX: Z01.810 Encounter for preprocedural cardiovascular examination (principal); Z01.818 Encounter for other preprocedural examination; E03.9 Hypothyroidism, unspecified; E78.5 Hyperlipidemia, unspecified; Z22.322 Carrier or suspected carrier of Methicillin resistant Staphylococcus aureus; R82.998 Other abnormal findings in urine
CPT/HCPCS: 36415; 80053; 80061; 81001; 84439; 84443; 85025; 85610; 85730; 87081; 87086

== ENCOUNTER 2025-03-04 09:24 | Outpatient (OUT) | payer MEDICARE, OTHER, SELFPAY ==
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
--- OUTSIDE RECORDS SUMMARY | 2025-02-22 05:04 | XMS_ITS ---
Author Organization [facility] Address [address] [place] [address] Care Team Providers Care Railroad Surveyor Name Role Phone Janina Castro M.D. Primary Care Provider Unavail able Jose Rodríguez Unavailable [phone] Self, Referral Unavailable Unavailable Jeramie Younger Unavailable [phone] REASON FOR VISIT Message Encounters Encounter Location Date Provider Diagnosis [facility] [address] [place] [address] 02/22/2025 Jeramie Younger Plan Of Treatment Next Appt Details Provider Name:Jeramie Younger, 03/14/2025 10:30:00 AM, [address], [address], [address], Provider Name:Jeramie Younger, 03/24/2025 09:30:00 AM, [address] [place] [address], [address], Provider Name:Jeramie Younger, 04/11/2025 09:50:00 AM, [address], [address], [address], Progress Notes * GARTH REGALADO BDOB:1949 (74 yo F)Acc No.[id number]:02/22/2025 Patient: LAINE CRAWFORDECCA Eryn :1950 A ge:74 Y S ex:Female Address:[address] [place] [address] [address] , [place], [address] * true * Date: Generated for Elizabeth avilez/Ludin/Jacksonitting on: 0 03/04/2025 09:26 AM EDT
--- OUTSIDE RECORDS SUMMARY | 2025-02-22 05:13 | XMS_ITS ---
Author Organization [facility] Address [address] [place] [address] Care Team Providers Care Catalog Librarian Name Role Phone Janina Castro M.D. Primary Care Provider Unavail able Jose Rodríguez Unavailable [phone] Self, Referral Unavailable Unavailable Jose Ramon Sung Unavailable [phone] REASON FOR VISIT Surgical Patient Encounters Encounter Location Date Provider Diagnosis [facility] [address] [place] [address] 02/22/2025 Jose Ramon Sung Plan Of Treatment Next Appt Details Provider Name:Jeramie Younger, 03/14/2025 10:30:00 AM, [address] [place] [address], [address], Provider Name:Jeramie Younger, 03/24/2025 09:30:00 AM, [address] [place] [address], [address], Provider Name:Jeramie Younger, 04/11/2025 09:50:00 AM, [address], [address], Progress Notes * GARTH REGALADO BDOB:1949 (74 yo F)Acc No.[id number]:02/22/2025 Patient: GARTH CRAWFORD :1950 A ge:74 Y S ex:Female Address:[address] [facility] [address] , [place], [address] * true * Date: Generated for Elizabeth avilez/Ludin/Kim on: 0 03/04/2025 09:26 AM EDT
--- OUTSIDE RECORDS SUMMARY | 2025-02-24 10:30 | XMS_ITS | Encounter Summary ---
Author Organization [facility] Address [address] [place] [address] Phone Care Team Providers Care Production Controller Name Role Phone Janina Castro MD Primary Care Provider [phone] Reason for Referral * Imaging (Routine) - Authorized Specialty Diagnoses / Procedures Referred By Contac t Referred To Contact Cardiology Diagnoses Bilateral carotid artery stenosis Procedures Vascular US Carotid Artery Duplex Bilateral Lul Rose DO [address] [place] [address], [address] [address] Phone: tel: fax: Referral ID Status Reason Start Date Expiration Date Visits Requested Visits Authorized [id number] Authorized Perform Procedure 02/24/2025 02/24/2026 1 1 * Consultation (Routine) - Authorized Specialty Diagnoses / Procedures Referred By Contac t Referred To Contact Cardiology Diagnoses ASHD (arteriosclerotic heart disease) Procedures Follow Up In Cardiology Lul Rose DO [address] [place] [address] 2, [address] [address] Phone: tel: fax: Lul Rose DO [address] [place] [address], [address] [address] Phone: tel: fax: Referral ID Status Reason Start Date Expiration Date V isits Requested Visits Authorized [id number] Authorized 02/24/2025 02/24/2026 1 1 * Cardiac Stress Testing (Routine) - Authorized Specialty Diagnoses / Procedures Referred By Chevy moreland Referred To Contact Radiology Diagnoses Preop cardiovascular exam ASHD (arteriosclerotic heart disease) History of PTCA Myocardial infarction, unspecified [place] type, unspecified artery (Multi) Essential hypertension Procedures Nuclear Stress Test CHG MYOCARDIAL SPECT MULTIPLE STUDIES Lul Rose DO [address] [place] [address] 2, [address] [place] [address] Phone: tel: fax: Referral ID Status Reason Start Date Expiration Date V isits Requested Visits Authorized [id number] Authorized 02/24/2025 02/24/2026 5 5 Reason for Visit * Reason Comments Annual Exam 1 year, arterioscler otic heart disease * Consultation (Routine) - Authorized Specialty Diagnoses / Procedures Referred By Chevy moreland Referred To Contact Cardiology Diagnoses ASHD (arteriosclerotic heart disease) Procedures Follow Up In Cardiology Lul Rose DO [address] [facility] 2, [address] [place] [address] Phone: tel: fax: Lul Rose DO [address] [facility] 2, [address] [place] [address] Phone: tel: fax: Referral ID Status Reason Start Date Expiration Date V isits Requested Visits Authorized [id number] Authorized 02/25/2024 02/24/2025 1 1 Encounter Details Date Type Department Care Team (Latest Contact Info) Description 02/24/2025 10:30 AM EDT Office Visit [facility] [address] [facility] [address] [place] [address] Lul Rose DO [address] [facility] 2, [address] [place] [address] Preop cardiovascular exam; ASHD (arteriosclerotic heart disease); History of PTCA; Myocardial infarction, unspecified IL type, unspecified artery (Multi); Mixed hyperlipidemia; Essential hypertension; PFO (patent foramen ovale) ([facility]); Bilateral carotid artery stenosis; TIA (transient ischemic attack); Former smoker; BMI 29.0-29.9,adult Social History Tobacco Use Types Packs/Day Years Used Date Smoking Tobacco: Former Cigarettes Q uit: 1986 Smokeless Tobacco: Never Tobacco Cessation:Counseling Given: Not Answered Alcohol Use Standard Drinks/Week Comments Never 0 (1 standard drink = 0.6 oz pur e alcohol) Comments Unknown Sex and Gender Information Value Date Recorded Sex Assigned at Not on file Legal Sex Female 5:35 PM EST Gender Identity Not on file Sexual Orientation Not on file COVID-19 Exposure Response Date Recorded In the last 10 days, have yo u been in contact with someone who was confirmed or suspected to have Coronavirus/COVID-19? No / Unsure 02/24/2025 10:15 AM EDT documented as of this encounter Last Filed Vital Signs Vital Sign Reading Time Taken Comments Blood Pressure 140/80 02/24/2025 10:38 AM EDT Pulse 56 02/24/2025 10:38 AM EDT Temperature - - Respiratory Rate - - Oxygen Saturation - - Inhaled Oxygen Concentration - - Weight 78 kg (172 lb) 02/24/2025 10:38 AM EDT Height 162.6 cm (5' 4 ) 02/24/2025 10:38 AM EDT Body Mass Index 29.52 02/24/2025 10:38 AM EDT documented in this encounter Patient Instructions * Patient Instructions* Phylicia Vivar LPN - 02/24/2025 10:30 AM EDT Please bring all medicines, vitamins, and herbal supplements with you when you come to the office. Prescriptions will not be filled unless you are compliant with your follow up appointments or have a follow up appointment scheduled as per instruction of your physician. Refills should be requested at the time of your visit. BMI was above normal measurement. Current weight: 78 kg (172 lb) Weight change since last visit (-) denotes wt loss 2 lbs Weight loss needed to achieve BMI 25: 26.7 Lbs Weight loss needed to achieve BMI 30: -2.4 Lbs Provided instructions on dietary changes. * Attachments The following attachments cannot be sent through Care Everywhere. * DASH Diet (Samoan) documented in this encounter Progress Notes * Lul Rose, - 02/24/2025 10:30 AM EDT Chief Complaint Patient presents with Annual Exam 1 year, arteriosclerotic heart disease Subjective Nicolette Regalado is a 74 y.o. female 74-year-old female returns for annual cardiovascular office visit as well as for preoperative clearance prior to right knee replacement within the next month. She is doing well from a cardiovascular standpoint with no angina or shortness of breath or nitrate usage or hospitalizations or clinical events. She underwent PCI of the RCA in 2017 followed by IFR assessment of the trifurcating circumflex marginal branch system thereafterwards (negative and therefore no stenting). She remains stable since 2017 with no repeat ischemic assessment. She has a history of PFO with TIA in the past, and has historically refused any further structural heart referral. She has had no recurrent TIAs or neurologic events. She does have bilateral moderate carotid disease last carotid imaging revealed bilateral 50-69% disease. She remains on appropriate GDMT as reviewed including aspirin, atorvastatin metoprolol, omega-3. Based on the above, I would recommend proceeding with Lexiscan stress imaging, if negative she is clear for her intended knee replacement surgery; follow-up in 1 year, will repeat carotid assessment prior to next year's Review of Systems All other systems reviewed and are negative. Vitals: 02/24/25 1038 BP: 140/80 BP Location: Right arm Patient Position: Sitting Pulse: 56 Weight: 78 kg (172 lb) Height: 1.626 m (5' 4 ) Objective Physical Exam Constitutional: Appearance: Normal appearance. HENT: Nose: Nose normal. Neck: Vascular: No carotid bruit. Cardiovascular: Rate and Rhythm: Normal rate. Pulses: Normal pulses. Heart sounds: Normal heart sounds. Pulmonary: Effort: Pulmonary effort is normal. Abdominal: General: Bowel sounds are normal. Palpations: Abdomen is soft. Musculoskeletal: General: Normal range of motion. Cervical back: Normal range of motion. Right lower leg: No edema. Left lower leg: No edema. Skin: General: Skin is warm and dry. Neurological: General: No focal deficit present. Mental Status: She is alert. Psychiatric: Mood and Affect: Mood normal. Behavior: Behavior normal. Thought Content: Thought content normal. Judgment: Judgment normal. Allergies Ciprofloxacin Current Medications Current Outpatient Medications Medication Instructions acetaminophen (TylenoL) 325 mg tablet 1-2 tablets, Every 4 hours PRN ascorbic acid, vitamin C, 500 mg capsule 1 capsule, Daily atorvastatin (Lipitor) 20 mg tablet 1 tablet busPIRone (BUSPAR) 5 mg, As needed cholecalciferol (Vitamin D-3) 25 MCG (1000 UT) tablet 1 tablet, Daily diclofenac (VOLTAREN) 75 mg, As needed dicyclomine (BENTYL) 20 mg, 4 times daily PRN glucosamine-chondroitin 500-400 mg tablet 1 tablet, Daily HALOBETASOL PROPIONATE TOP Use as directed levothyroxine (Synthroid, Levoxyl) 88 mcg tablet 1 tablet, Every other day levothyroxine (SYNTHROID, LEVOXYL) 100 mcg, Every other day metoprolol succinate XL (TOPROL-XL) 25 mg, oral, Daily MULTIVITAMIN ORAL 1 tablet, Daily nitroglycerin (NITROSTAT) 0.3 mg omega 0-zwe-fph-fish oil (Fish OiL) 1,000 mg (120 mg-180 mg) capsule 1 capsule, Daily TURMERIC ORAL 1 capsule, Daily xylitoL (XyliMelts) 550 mg muco-adhesive buccal tablet Daily Assessment/Plan 1. Preop cardiovascular exam 2. ASHD (arteriosclerotic heart disease) Follow Up In Cardiology 3. History of PTCA 4. Myocardial infarction, unspecified IL type, unspecified artery (Multi) 5. Mixed hyperlipidemia 6. Essential hypertension 7. PFO (patent foramen ovale) ([facility]) 8. Bilateral carotid artery stenosis 9. TIA (transient ischemic attack) 10. Former smoker 11. BMI 29.0-29.9,adult Scribe Attestation By signing my name below, Phylicia Tavarez LPN, Scribe attest that this documentation has been prepared under the direction and in the presence of Morelia Rose DO. Provider Attestation - Scribe documentation All medical record entries made by the Scribe were at my direction and personally dictated by me. Casi reviewed the chart and agree that the record accurately reflects my personal performance of the history, physical exam, discussion and plan. documented in this encounter Plan of Treatment Upcoming Encounters Date Type Department Care Team (Late st Contact Info) Description 03/17/2025 8:00 AM EDT Appointment [address] [place] [address] 03/17/2025 8:30 AM EDT Appointment [address] [place] [address] 03/17/2025 9:00 AM EDT Appointment [address] [place] [address] 03/17/2025 9:30 AM EDT Appointment [address] [place] [address] 03/17/2025 9:45 AM EDT Appointment [address] [place] [address] 02/16/2026 9:45 AM EDT Appointment [address] [place] [address] 03/01/2026 10:30 AM EDT Office Visit [address] [place] [address] Lul Rose DO [address] [place] [address] 2, [address] [place] [address] Scheduled Orders Name Type Priority Associated Diagnoses Orde r Schedule Nuclear Stress Test Cardiac Nuclear Medicine Routine Preop cardiovascular exam ASHD (arteriosclerotic heart disease) History of PTCA Myocardial infarction, unspecified IL type, unspecified artery (Multi) Essential hypertension Expected: 02/24/2025 (Approximate), Expires: 02/24/2027 Vascular US Carotid Artery Duplex Bilateral Vascular Ultrasound Routine Bilateral carotid artery stenosis Expected: 03/13/2026 (Approximate), Expires: 02/24/2027 documented as of this encounter Visit Diagnoses Diagnosis Preop cardiovascular exam Pre-operative cardiovascular examination ASHD (arteriosclerotic heart disease) Coronary atherosclerosis of unspecified type of vessel, [place] or graft History of PTCA Postsurgical percutaneous transluminal coronary angioplasty status Myocardial infarction, unspecified IL type, unspecified artery (Multi) Mixed hyperlipidemia Essential hypertension Unspecified essential hypertension PFO (patent foramen ovale) ([facility]) Ostium secundum type atrial septal defect Bilateral carotid artery stenosis Occlusion and stenosis of carotid artery without mention of cerebral infarction TIA (transient ischemic attack) Unspecified transient cerebral ischemia Former smoker Personal history of tobacco use, presenting hazards to health BMI 29.0-29.9,adult documented in this encounter Additional Health Concerns Assessment Noted Time A fall risk assessment has been complete d for the patient 02/25/2024 10:28 AM EDT documented as of this encounter Care Teams Production Controller Relationship Specialty Start Date End Date Janina Castro MD [address] [place] [address] PCP - General 04/03/21 documented as of this encounter
--- OUTSIDE RECORDS SUMMARY | 2025-03-03 09:04 | XMS_ITS ---
Author Name Auto Generated Organization [facility] Care Team Providers Care Interactive Media Marketing Strategist Name Role Phone THIERRY CANTRELL Referring Unavailable AURELIA QUIROGA Primary Care Unavailable THIERRY CANTRELL Referring Unavailable AURELIA QUIROGA Primary Care Unavailable NON STAFF Attending Unavailable NON STAFF Admitting Unavailable MARGI WANG Attending Unavailable MARGI WANG Referring Unavailable AURELIA QUIROGA Primary Care Unavailable MARGI WANG Referring Unavailable AURELIA QUIROGA Primary Care Unavailable PROBLEMS DATE TYPE CONDITION / CODE ATTENDING STATUS [facility] 02/24/2025 Admitting Diagnosis Encounter for preprocedural cardiovascular examination / Z01.810(ICD-10) [facility] 02/25/2024 Admitting Diagnosis Body mass index (BMI) 29.0-29.9, adult / Z68.29(ICD-10) [facility] 02/25/2024 Admitting Diagnosis Atherosclerotic heart disease of [place] coronary artery without angina pectoris / I25.10(ICD-10) [facility] 06/07/2023 Admitting Diagnosis Personal history of nicotine dependence / Z87.891(ICD-10) [facility] 06/07/2023 Admitting Diagnosis Coronary angioplasty status / Z98.61(ICD-10) [facility] 06/07/2023 Admitting Diagnosis Acute myocardial infarction, unspecified / I21.9(ICD-10) [facility] 06/07/2023 Admitting Diagnosis Mixed hyperlipidemia / E78.2(ICD-10) [facility] 06/07/2023 Admitting Diagnosis Essential (primary) hypertension / I10(ICD-10) [facility] 06/07/2023 Admitting Diagnosis Patent foramen ovale (HHS-HCC) / Q21.12(ICD-10) [facility] 06/07/2023 Admitting Diagnosis Occlusion and stenosis of bilateral carotid arteries / I65.23(ICD-10) [facility] 06/07/2023 Admitting Diagnosis Transient cerebral ischemic attack, unspecified / G45.9(ICD-10) [facility] 05/12/2024 Admitting diagnosis Acute vaginitis / N76.0(ICD-10) [facility] 05/12/2024 Unknown Acute vaginitis / N76.0(ICD-10) [facility] 05/12/2024 Unknown Encounter for screening for malignant neoplasm of vagina / Z12.72(ICD-10) [facility] PROCEDURES No Procedure Records Found RESULTS URINE CULTURE Observed: 03/03/2025 9:04 AM Status: P Source: [facility] CRISSY Hoffman PHYSICIAN 75,000 colonies/ml mixed bacterial skin contaminants 1 Day PERFORMED BY: [place] [address] PATHOLOGIST PLUSH BRUSHER ANGEL JEAN M.D. Performed By: #### [facility] #### [place] [address] [place] CULT,GENITAL Observed: 05/12/2024 5:24 PM Status: F Source: [facility] Specimen Description .VAGINA Special Requests Site: Genital Culture NORMAL URO-GENITAL [place] NEGATIVE FOR NEISSERIA GONORRHOEAE Report Status FINAL 05/15/2024 Performed By: #### [facility] #### [address] [address] Nuclear Equipment Design Engineer: Mario Doty MD [facility] [address] [place] [address] Nuclear Equipment Design Engineer: Donny Booth MD CYTOLOGY REPORT Observed: 05/12/2024 12:00 AM Status: F Source: [facility] (NOTE) Path Number: [id number] DIAGNOSIS Imaged ThinPrep Pap - Vaginal (1 monolayer slide): Specimen Adequacy: Satisfactory for evaluation. Descriptive Diagnosis: Negative for intraepithelial lesion or malignancy. Comments: Specimen was screened at [facility], [address] [place] [address] Cytotech Screener: CS Rescreened By: YONATHAN Electronically Signed Out MIGUEL Mariano(ASCP) yonathan/05/17/2024 Source of Specimen: A: Imaged ThinPrep Pap - Vaginal (1 monolayer slide) HPV Reflex?......................HPV if Abnormal Clinical History Hysterectomy Z12.72 Vaginal pap post hysterectomy, non malignant condition Processing Lab: [address] [address] [place] [address] This Pap Test has been evaluated with [...] smear result. GYNECOLOGIC CYTOLOGY REPORT Patient Name: PAULINO OLGUINADRIAN Gamble Med Rec: [id number] [facility] ANATOMIC PATHOLOGY [address] [facility]. [place], [place] [address] VAS US CAROTID ARTERY DUPLE X BILATERAL Observed: 04/08/2024 12:35 PM Status: F Source: [facility] [place] [address] [place] [address], [address], [place] [address] Vascular Lab Report [facility] US CAROTID ARTERY DUPLEX BILATERAL Patient Name: GARTH OLGUIN Reading Physician: [id number] Neha Roman MD, [facility] Study Date: 04/08/2024 Ordering Provider: [id number] MARGI WANG MRN/PID: [id number] Fellow: Technologist: Orly New [facility], T Date of /Age: 907/11/1950 / 73 years Technologist 2: Gender: F Admission Status: Outpatient Location Performed: [facility] Diagnosis/ICD: Occlusion and stenosis of bilateral carotid arteries-I65.23 Indication: HTN, Hyperlipidemia, Former Smoker, Previous TIA, CAD, PTCA-2017, PFO CPT Codes: 75587 Cerebrovascular Carotid Duplex scan complete CONCLUSIONS: Right [...] cm/s Right Left ICA/CCA Ratio 1.1 1.3 33167 Neha Roman MD, FACC Final ALLERGIES DATE TYPE / CODE NAME / CODE REACTION SEVERITY SOURCE 03/01/2025 Drug Allergy/4160 30509(SNOMED CT) ciprofloxacin/L568188 882(RXNORM) Muscle Pain Unknown [facility] 03/01/2025 Drug Allergy/4160 39255(SNOMED CT) losartan/[id number](R XNORM) Hives Unknown [facility] 03/01/2025 Drug Allergy/4160 32310(SNOMED CT) nickel/[id number](RXN ORM) Unknown Reaction Unknown [facility] 06/07/2023 DRUG INGREDI/4195 06649(SNOMED CT) CIPROFLOXACIN Unknown [facility] Ambulatory ENCOUNTERS ADMIT/DISCHARGE ACCOUNT NUMBER ADMITTING ENCOUNTER CLASS LOCATION SOURCE 03/03/2025/ 5 [id number] NON STAFF [facility] 02/24/2025/ 5 [id number] Ambulatory Building:[facility] [id number] [facility] Ambulatory 05/12/2024/ 4 [id number] Ambulatory Building:[facility] 05/12/2024/ 4 [id number] Ambulatory Building:[facility] 04/08/2024/ 4 [id number] Ambulatory Building:[facility] [id number] [facility] PAYERS ENCOUNTER GUARANTOR PAYER SUBSCRIBER SOURCE 03/03/20[address] [address]Apz: () Primary Insurance:Self PayPolicy Number: Effective Date:2025-03-03 NOT GIVENUNK [facility] 02/24/2025 GARTH OLGUINDOB: [id number] [facility] [address] [place] [address]Kud: () Primary Insurance:MEDICAREPolic y Number: [id number] Date:2010-03-13 GARTH B SHANTAANDERDOB: [id number] [place], [place] [address]Jvb: () [facility] 02/24/2025 Secondary Insurance:[facility] Number: [id number] Date:2022-10-13 FRANTZ OLGUINDOB: [id number] [facility] [address] [place], [place] [address]Wid: () [facility] 05/12/2024 GARTH B SHANTAANDERDOB: [id number] [address] [place] [address]Spw: () Primary Insurance:MEDICAREPolic y Number: [id number] Date:7279-21-49[address] [place] [address]IB: GARTH B SHANTAANDERDOB: [id number] [facility] [address] [place] [address]Lmi: () [facility] 05/12/2024 Secondary Insurance:[facility] Number: [id number] Date:2014-10-13P.OMao BROTHERS [address], [place] [address]YZ: FRANTZ OLGUINDOB: [id number] [address] [place], [place] [address]Gxh: () [facility] 05/12/2024 GARTH B SHANTAANDERDOB: [id number] [address] [place], [place] [address]Liy: (HP) Primary Insurance:MEDICAREPolic y Number: [id number] Date:2066-61-43[address] [address], [place] [address]IA: GARTH Eryn SHARIFDOB: [id number] [facility] [address] [place] [address], [place] [address]Bbt: (HP) [facility] 05/12/2024 Secondary Insurance:[facility] Number: [id number] Date:2014-10-13[address] [address], [place] [address]BB: FRANTZ OLGUINDOB: [id number] [facility] [address] [place] [address], [place] [address]Svf: (HP) [facility] 04/08/2024 GARTH OLGUINDOB: [address], [place] [address]Gik: (HP) Primary Insurance:MEDICAREPolic y Number: [id number] Date:2010-03-13 GARTH OLGUINDOB: [id number] [address], [place] [address]Okx: (HP) [facility] 04/08/2024 Secondary Insurance:[facility] Number: [id number] Date:2022-10-13 FRANTZ ADHIKARIB: [id number] [facility] [address] [place] [address], [place] [address] [facility]
--- OUTSIDE RECORDS SUMMARY | 2025-03-04 09:26 | XMS_ITS | Encounter Summary ---
Author Organization [facility] Address [facility] [place] [address] Care Team Providers Care Automotive Fuel Systems Converter Name Role Phone Janina Castro MD Primary Care Provider [phone] Source Comments In the event this information is protected by the Federal Confidentiality of Alcohol and Drug AbusePatient Records regulations: The Federal rules restrict any use of the information to criminally investigate or prosecute any alcohol or drug abuse patient.[facility] Encounter Details Date Type Department Care Team ([facility] Contact Info) Description 04/27/2019 Patient Msg Medical Records [address] [place] [address] Provider, [facility] Prescribed Patient Education Video(s) Social [...] on filedocumented in this encounter Care Teams Automotive Fuel Systems Converter Relationship Specialty Start Date End Date Janina Castro MD [address] [place] [address] PCP - General Family Medicine 07/17/17 documented as of this encounter
--- OUTSIDE RECORDS SUMMARY | 2025-03-04 09:26 | XMS_ITS | Encounter Summary ---
Author Organization [facility] Address [address] [place] [address] Care Team Providers Care Tricot Knitting Machine Operator Name Role Phone Janina Castro MD Primary Care Provider [phone] Source Comments In the event this information is protected by the Federal Confidentiality of Alcohol and Drug AbusePatient Records regulations: The Federal rules restrict any use of the information to criminally investigate or prosecute any alcohol or drug abuse patient.[facility] Encounter Details Date Type Department Care Team (Late st Contact Info) Description 11/08/2019 Get Medical Advice [facility] [address] [place] [address] [place] [address] [facility] [address] [place] [address] RE: Upcoming Appointment Question Social History Tobacco [...] on filedocumented in this encounter Care Teams Tricot Knitting Machine Operator Relationship Specialty Start Date End Date Janina Castro MD [address] [place] [address] PCP - General Family Medicine 07/17/17 documented as of this encounter
--- OUTSIDE RECORDS SUMMARY | 2025-03-04 09:26 | XMS_ITS | Clinical Summary ---
Author Organization [facility] Address [address] [place] [address] Care Team Providers Care Med Dir Name Role Phone Janina Castro MD Primary Care Provider [phone] Allergies Active Allergy Reactions Criticality Noted Date [...] (HCC),Primary hypercoagulable state (HCC),Coronary artery disease involving [place] heart without angina pectoris, unspecified vessel or lesion type Take by mouth twice daily. Active atorvastatin (LIPITOR) 20 mg tabletIndications:M esenteric ischemia (HCC),Primary hypercoagulable state (HCC),Coronary artery disease involving [place] heart without angina pectoris, unspecified vessel or [...] every 6 hours as needed. 9 Active htljnqd-ubuqvrdtr-j itamin D3 500 mg(1,250mg) -200 unit per tablet Take 2 tablets by mouth three times daily. 180 tablet 9 Active levothyroxine (SYNTHROID) 88 mcg tablet Take 1 tablet by mouth once daily. 90 tablet 3 0 Active Active Problems Problem Noted Date Diagnosed Date Mesenteric ischemia 01/08/2018 Primary hypercoagulable state 01/08/2018 Coronary artery disease invo lving [place] heart without angina pectoris 01/08/2018 Multinodular thyroid [...] N ot on file 09/17/2020 Data from: https://www.neighborhoodatlas.medicine.[email or web address].edu/. Last address used for calculation Not on [...] - 8.0 g/dL 05/12/2019 8:20 PM EDT [facility] Albumin 4.5 3.9 - 4.9 g/dL 05/12/2019 8:20 PM EDT [facility] Calcium 9.7 8.5 - 10.2 mg/dL 05/12/2019 8:20 PM [facility] Bilirubin, Total 0.4 0.2 - 1.3 mg/dL 05/12/2019 8:20 PM [facility] Alkaline Phosphatase 76 34 - 123 U/L 05/12/2019 8:20 PM [facility] AST 23 13 - 35 U/L 05/12/2019 8:20 PM [facility] Glucose 84 74 - 99 mg/dL 05/12/2019 8:20 PM [facility] Comment: The [place] Diabetes [employer] (ADA) provides guidance for cutoff [...] Standards of Medical Care in Diabetes 2016, [place] [employer]. Diabetes Care. 2016.39(Suppl 1). BUN 13 7 - 21 mg/dL 05/12/2019 8:20 PM [facility] Creatinine 0.67 0.58 - 0.96 mg/dL 05/12/2019 8:20 PM [facility] Sodium 141 136 - 144 mmol/L 05/12/2019 8:20 PM [facility] Potassium 4.1 3.7 - 5.1 mmol/L 05/12/2019 8:20 PM [facility] Chloride 104 97 - 105 mmol/L 05/12/2019 8:20 PM [facility] CO2 26 22 - 30 mmol/L 05/12/2019 8:20 PM [facility] Anion Gap 11 9 - 18 mmol/L 05/12/2019 8:20 PM [facility] ALT 17 7 - 38 U/L 05/12/2019 8:20 PM [facility] eGFR- >60 05/12/2019 8:20 PM [facility] eGFR-All Other Races >60 . 05/12/2019 8:20 PM EDT [facility] Comment: eGFR (Estimated GFR) Units of [...] Geno Minor MD LABORATORY Final Res ult [facility] [address] [place] [address] [facility] [address] [place] [address] from Last 3 Months or Most Recently Relevant to Health Maintenance Insurance MEDICARE MEDICARE [place] Care Teams Med Dir Relationship Specialty Start Date End Date Janina Castro MD [address] [place] [address] PCP - General Family Medicine 07/17/17
--- OUTSIDE RECORDS SUMMARY | 2025-03-04 09:26 | XMS_ITS | Clinical Summary ---
Author Organization [facility] Address [address] [place] [address] Care Team Providers Care Lance Crewmember Name Role Phone Unavailable Primary Care Provider [...]
--- OUTSIDE RECORDS SUMMARY | 2025-03-04 09:26 | XMS_ITS | Clinical Summary ---
Author Organization [facility] Address [address] [place] [address] Care Team Providers Care Evaporator Name Role Phone Janina Castro MD Primary Care Provider [phone] Allergies Active Allergy Reactions Criticality Noted Date [...] Problems Problem Noted Date Diagnosed Date JAZMYN MOREIRAO, Cytologic washings, Peritoneal biopsie s 06/02/18 06/02/2018 Essential hypertension 06/02/2018 Endometrial cancer 04/23/2018 Cancer Staging:Clinical stage from 06/03/2018:FIGO Stage IA(ycT1a, cN0(sn), cM0) - Signed by Farhad Mendez MD on 06/03/2018 Pathologic stage from 06/03/2018:FIGO Stage IA(ypT1a, pN0(sn), cM0) - Signed by Farhad Mendez MD on 06/03/2018 Coronary artery disease invo lving [place] heart without angina pectoris 01/08/2018 Mesenteric ischemia [...] Description 03/24/2025 10:04 AM EDT Hospital Encounter [facility] OR [address] [place] [address] Jeramie Younger MD [address] [place] [address] 03/24/2025 10:04 AM EDT - 03/24/2025 12:39 PM EDT Surgery [facility] OR [address] [place] [address] Jeramie Younger MD [address] [place] [address] RIGHT TOTAL KNEE ARTHROPLASTY 05/16/2025 11:10 AM EDT Office Visit [facility] Part of [address] [place] [address] Shelby Castillo, LETY - [address] [place] [address] yearly--last seen by Dr Gutierrez [...] this topic Medical Devices Implanted Type Area Smudger Device Identifier Shelf Expiration Date Model / Serial / Lot Stent X2 N/A: Heart Procedures Procedure Name Priority Date/Time Associated Diagnosis Comments [facility] TYREL DIGITAL SCREEN BILATERAL Routine 05/26/2024 Screening mammogram, encounter for from Last 3 Months or Most Recently Relevant to Health Maintenance Results * RAVINDRA TYREL DIGITAL SCREEN BILATERAL (05/26/2024) Anatomical Region Laterality Modality Breast Bilateral Mammography Jeovany Betancourt MD IMG MAMMOGRAPHY ORDERABLES Fi nal Result from Last 3 Months or Most Recently Relevant to Health Maintenance Insurance [facility] Advance Directives * Full Code (Latest Code Status on File) Date Activated Date Inactivated Comments 06/02/2018 11:51 AM 06/03/2018 2:34 PM * Full Code Date Activated Date Inactivated Comments 06/02/2018 5:55 AM 06/02/2018 11:50 AM Care Teams Evaporator Relationship Specialty Start Date End Date Janina Castro MD PCP - General Family Medicine 04/10/18
--- OUTSIDE RECORDS SUMMARY | 2025-03-04 09:26 | XMS_ITS | Clinical Summary ---
Author Organization [email or web address] tem Address [id number] [address] [place] [address] Care Team Providers Care Vest Tailor Name Role Phone Unavailable Primary Care Provider Unavailabl e Allergies Active Allergy Reactions Criticality Noted Date Comments Ciprofloxacin 05/13/2023 Tendon issues Nickel Rash Low 05/13/2023 Medications aspirin 81 mg Take 1 tablet (81 mg total) by mouth. Active atorvastatin (LIPITOR) 20 mg tablet Take 1 tablet 3 times a week by oral route. 10/17/2022 Active metoprolol succinate XL (TOPROL XL) 25 mg 24 hr tablet 05/25/2022 Act peter levothyroxine (SYNTHROID, LEVOTHROID) 100 MCG tablet 06/29/2022 Active halobetasol (ULTRAVATE) 0.05 % cream APPLY TO AFFECTED AREA TWICE A DAY NEEDED Active nitroglycerin (NITROSTAT) 0.[address] 1 tablet (0.4 mg total) under the tongue. Active diclofenac (VOLTAREN) 75 mg EC tablet 02/24/2023 Active coenzyme Q10 200 mg capsule Take by mouth daily. Active busPIRone (BUSPAR) 5 mg tablet Take 1 tablet (5 mg total) by mouth 3 (three) times a day. Active dicyclomine (BENTYL) 20 mg tablet Take 1 tablet (20 mg total) by mouth every 6 (six) hours. Active xylitol (XYLIMELTS MM) by mucous membrane route. Active hltwdbzw-eapg-D A-calcium &mins (THERAGRAN-M) 9 mg iron-400 mcg tablet Take 1 tablet by mouth in the morning. Active cholecalciferol , vitamin D3, 2,000 units capsule Take 1 capsule (2,000 Units total) by mouth in the morning. Active ascorbic acid (VITAMIN C) 500 mg tablet Take 1 tablet (500 mg total) by mouth in the morning. Active acetaminophen (TYLENOL EXTRA STRENGTH) 500 mg tablet Take 1 tablet (500 mg total) by mouth every 6 (six) hours as needed for pain. Active L.acidophil-L.p lantar-Bifido 7 15 billion cell capsule Take by mouth. Active methylPREDNISol one (MEDROL) 4 mg tablet Take 1 tablet (4 mg total) by mouth in the morning. Active glucosamine-cho ndroitin 500-400 mg tablet Take 1 tablet by mouth 3 (three) times a day. Active rvwcjhh-jpmu-lt fqw-hojq-ilrgle 100 mg-150 mg- 50 mg-150 mg capsule Take by mouth. Active valsartan (DIOVAN) 80 mg tablet Take 1 tablet (80 mg total) by mouth in the morning. Active Active Problems Problem Noted Date Diagnosed Date Lumbosacral spondylosis without myelopathy 05/13 Social History Tobacco Use Types Packs/Day Years Used Date Smoking Tobacco: Former Cigarettes Q uit: 1985 Smokeless Tobacco: Never Tobacco Cessation:Counseling Given: Not Answered Alcohol Use Standard Drinks/Week Comments Not Currently 0 (1 standard drink = 0.6 oz pur e alcohol) Childcare Answer Date Recorded Childcare Unknown 03/24/2019 Employment Answer Date Recorded Employment Unknown 03/24/2019 Hunger Screening Answer Date Recorded Within the past 12 months we worried whether our food would run out before we got money to buy more. Never True 06/05/2023 Within the past 12 months th e food we bought just didn't last and we didn't have money to get more. Never True 06/05/2023 Comments No Sex and Gender Information Value Date Recorded Sex Assigned at Female 05/13/2023 7:19 PM EDT Legal Sex Female 12:06 PM EDT Gender Identity Female 05/13/2023 7:19 PM EDT Sexual Orientation Not on file Last Filed Vital Signs Vital Sign Reading Time Taken Comments Blood Pressure 163/77 06/27/2023 1:42 PM EDT Pulse 58 06/27/2023 1:14 PM EDT Temperature 36.1 C (97 F) 06/27/2023 1:14 PM EDT Respiratory Rate 16 06/27/2023 1:42 PM EDT Oxygen Saturation 100% 06/27/2023 1:42 PM EDT Inhaled Oxygen Concentration - - Weight 82.1 kg (181 lb) 06/05/2023 2:20 PM EDT Height 162.6 cm (5' 4 ) 06/05/2023 2:20 PM EDT Body Mass Index 31.07 06/05/2023 2:20 PM EDT Plan of Treatment Health Maintenance Due Date Last Done Comments Depression Screening 1964 DTaP,Tdap and Td Vaccines (1 - Tdap) 1971 Zoster (Shingles) Vaccine (1 of 2) 2002 Fall Risk Screening 2017 Adult BMI Screening 06/05/2024 06/05/2023 COVID-19 Vaccine (2023-2 5 season) 2024 08/15/2022, 08/11/2021, 01/04/2021, Additional history exists Tobacco Screening 06/27/2024 06/27/2023 Influenza Vaccine 06/13/2025 07/30/2022, , 07/13/2020 Medical Devices Not on file Insurance MEDICARE [id number] PLAN [facility]
--- OUTSIDE RECORDS SUMMARY | 2025-03-04 09:26 | XMS_ITS | Data Portability ---
Author Organization [place] - [employer], [facility], [facility] Address [address] [place] [address] Care Team Providers Care Cabin Supervisor Name Role Phone ELIOT ALEXANDRA Primary Care Provider ELIOT ALEXANDRA Referring Provider EM GARCÍA Music Engraver AURELIA QUIROGA Primary Care Provider PEG DIXON Urologist Assessment No assessment recorded. Plan of Treatment Reminders Order Date Submit Date Provider Last Modified By Organization Details Last Modified Time Details Appointments ESTABLISH ED OV 15 2024 10:00A M Eliot Alexandra MD Not available Not available Not available Lab urinalysi s, dipstick 2022 023 [email or web address] In-Office Order, Internal Use Only DO Not Attach Compendium DO Not Attach Compendium, Do Not Delete/merge, [id number] 11/22/2022 14:17:26 culture, urine 2022 023 [facility], [address] [place], [address], 11/27/2022 04:02:46 Referral None recorded. Procedures None recorded. Surgeries None recorded. Imaging None recorded. Medication Orders metronida zole 500 mg tablet 2022 023 [email or web address] [id number], [address] [place], [place], [phone], 10/20/2023 09:20:51 hyoscyami ne 0.125 mg sublingua l tablet 2022 023 MARIAELENA [facility] #[id number], [address] [place], [place], [phone], 11/28/2022 14:45:21 Macrobid 100 mg capsule 2022 023 [email or web address] 7 [facility] #[id number], [address] [place], [place], [phone], 10/20/2023 09:24:38 Patient TargetsNo targets recorded. Patient Instructions Encounter Date Encounter Id Patient Instructions Last Modified By Organization Details Last Modified Time 10/20/2023 [id number] Anticipatory guidelines discussed. Medication list reviewed. She will record her blood pressures at home. If her blood pressure remains on the high side or is not going down, I told him to make a follow-up appointment. Otherwise, we'll see her again in a year or as needed. Not available 10/20/2023 13:22:36 08/25/2024 [id number] We discussed you r recent medical visits and current health status: - You saw your family doctor, photo lab specialist, elevator starter, and chiropractor recently, with no significant changes or issues reported. - You are currently taking several medications and supplements, including atorvastatin, buspirone, calcium + D, CoQ10, fish oil, glucosamine, multivitamin, levothyroxine, metoprolol, probiotic, vitamin D3, Tylenol as needed, and clobetasol cream. - You are not taking amitriptyline or valsartan. We discussed your knee pain and the possibility of surgery: - You are currently taking glucosamine, which seems to help with your knee pain. - You are considering knee surgery but are unsure about it. Dr. Dsouza, an orthopedic surgeon, is highly recommended and can perform the surgery if you decide to proceed. We discussed your vaccinations: - You have received the COVID-19 and pneumonia vaccines. - You have not received the shingles vaccine. I highly recommend getting the shingles vaccine, which is up to 93% effective in preventing shingles and long-term nerve pain. You only need two doses for lifelong protection. Please schedule this at your convenience. We discussed your bone density testing: - Your last bone density test was 2-3 years ago and was normal. - Bone density testing should be done every two years. Please remind your [place] doctor to order this test at your next visit. We discussed your blood pressure: - Your blood pressure today was 144/76. - Please monitor your blood pressure at home regularly to track any changes. If you need any medication refills while you are here, please have your pharmacy call us. Otherwise, I will see you next year. Not available 08/25/2024 13:26:57 Reason for Referral None Reported. Results Created Date Observation Date Name Description Value Unit Range Abnormal Flag Note LastModifiedBy Organization Detail LastModifiedTime 11/22/1911/27/2022 CULTU RE, URINE , ROUTI NE culture, urine, routine SEE NOTE CULTU RE, URINE , ROUTI NE Micro Numbe r: [id number] Test Statu s: Final Speci men Sourc e: Urine Speci men Quali ty: Adequ ate Resul t: Mixed genit al ronald isola harman. These super ficia l bacte walter are not indic ative of a urina ry tract infec tion. No furth er organ ism ident ifica tion is warra nted on this speci men. If clini carlita indic ated, recol lect clean -catc h, mid-s tream urine and trans chichi immed iatel y to Urine Cultu re Trans port Tube. Not Available [facility] [address] [place], [place] [address] [address] [facility], [place], [address], 11/27/2022 04:02:46 11/22/1911/22/2022 urina lysis , dipst ick leukocytes small negati ve Not Available In-Office Order Internal Use Only DO Not Attach Compendium DO Not Attach Compendium, Do Not Delete/merge, [id number] 11/22/2022 14:02:08 11/22/1911/22/2022 urina lysis , dipst ick nitrite negati ve negati ve Not Available In-Office Order Internal Use Only DO Not Attach Compendium DO Not Attach Compendium, Do Not Delete/merge, 11/22/2022 14:02:08 11/22/1911/22/2022 urina lysis , dipst ick urobilinogen 0.2 E.U./ dL 0.2 Not Available In-Office Order Internal Use Only DO Not Attach Compendium DO Not Attach Compendium, Do Not Delete/merge, 11/22/2022 14:02:08 11/22/19 23 11/22/2022 urina lysis , dipst ick protein negati ve mg/dL negati ve Not Available In-Office Order Internal Use Only DO Not Attach Compendium DO Not Attach Compendium, Do Not Delete/merge, 11/22/2022 14:02:08 11/22/1911/22/2022 urina lysis , dipst ick pH 6.0 5.0-7. 0 Not Available In-Office Order Internal Use Only DO Not Attach Compendium DO Not Attach Compendium, Do Not Delete/merge, 11/22/2022 14:02:08 11/22/1911/22/2022 urina lysis , dipst ick blood small negati ve Not Available In-Office Order Internal Use Only DO Not Attach Compendium DO Not Attach Compendium, Do Not Delete/merge, 11/22/2022 14:02:08 11/22/1911/22/2022 urina lysis , dipst ick specific gravity 1.005 1.020- 1.035 Not Available In-Office Order Internal Use Only DO Not Attach Compendium DO Not Attach Compendium, Do Not Delete/merge, 11/22/2022 14:02:08 11/22/19 23 11/22/2022 urina lysis , dipst ick ketone negati ve mg/dL negati ve Not Available In-Office Order Internal Use Only DO Not Attach Compendium DO Not Attach Compendium, Do Not Delete/merge, 11/22/2022 14:02:08 11/22/19 23 11/22/2022 urina lysis , dipst ick bilirubin negati ve negati ve Not Available In-Office Order Internal Use Only DO Not Attach Compendium DO Not Attach Compendium, Do Not Delete/merge, [id number] 11/22/2022 14:02:08 11/22/19 23 11/22/2022 urina lysis , dipst ick glucose negati ve mg/dL negati ve Not Available In-Office Order Internal Use Only DO Not Attach Compendium DO Not Attach Compendium, Do Not Delete/merge, [id number] 11/22/2022 14:02:08 Result Notes None recorded. Problems Name Problem SNOMED Code Status Onset Date Resolution Date Notes Provider Name and Address Organization Details Recorded Time Abdominal pain 30404558 Completed 10/17/2022 Eliot Alexandra MD [address], [place], [address] , [facility] [employer] 3 09:55:53 Low back pain 566503609 Active Not Available [facility] 2 16:16:52 Scoliosis deformity of spine 805455059 Active Not Available [facility], [facility] 2 16:16:53 Right lower quadrant pain 268481834 Completed 10/17/2022 Eliot Alexandra MD [address], [place], [address] , [facility] [employer] 3 09:55:53 Osteopeni a 072669316 Active Not Available [facility] 2 16:16:53 Osteoarth ritis 136716530 Active Not Available [facility] 2 16:16:53 Obesity 187231379 Active Not Available [facility], [facility] 2 16:16:53 Conjuncti vitis 4358427 Completed 10/17/2022 Eliot Alexandra MD [address], [place], [address] , [facility] [employer] 3 09:56:08 Myocardia l infarctio n 76798658 Completed 201611/10/2017 Trever Rubio MD [address], [place], [address] , [facility], [facility] 8 14:58:32 Hypothyro idism 05101249 Completed 201609/21/2018 Eliot Alexandra MD [address], [place], [address] , [facility], [facility] 8 13:51:12 Hyperlipi demia 52441854 Active 2016 Jazzy maria [facility], [facility] 9 17:36:26 History of reimplant ation of ureter 734544705 [facility] 9 17:36:26 Blood in urine 96703856 Completed 201602/01/2019 Eliot Alexandra MD [address], [place], [address] , [facility], [facility] 9 21:49:20 Right flank pain 635410500 Completed 201612/29/2017 Trever Rubio MD [address], [place], [address] , [facility], [facility] 8 15:12:43 Coronary arteriosc lerosis in [place] artery 31609173632 07 Active 2017 Jazzy maria [facility], [facility] 9 17:36:26 Stented coronary artery 621470362 Active 2017 [facility] 9 17:36:26 Erythemat ous duodenopa thy 140986082 Completed 201702/01/2019 Eliot Alexandra MD [address], [place], [address] , [facility], [facility] 9 21:50:06 Esophagit is 75822889 Completed 201710/17/2022 MD Danny Mcke[address], [place], [address] , [facility], [facility] 3 09:56:08 Gastroeso phageal reflux disease 840313630 Active 2017 Jazzy maria, [facility], [facility] 9 17:36:26 Chest pain 25906778 Completed 02/01/[address], [place], [address] , [facility], [facility] 9 21:49:30 Urinary tract infectiou s disease 06474953 Completed 10/17/[address]on [address], [place], [address] , [facility], [facility] 3 09:56:08 Worried well 98468317 Completed 02/01/2019 MD Danny Mckeon[address], [place], [address] , [facility], [facility] 9 21:50:03 Hydrouret er 76585076 [facility] 17:36:26 Abdominal pain - cause unknown 759708882 Completed 02/01/2019 MD Danny Mcke[address], [place], [address] , [facility], [facility] 9 21:49:11 Right sided abdominal pain 562062994 Completed 02/01/[address]on [address], [place], [address] , [facility], [facility] 9 21:49:26 Malaise and fatigue 503114909 Completed 02/01/[address], [place], [address] , [facility], [facility] 9 21:49:23 Renal colic 5142881 Completed 10/17/2022 Eliot Alexandra MD [address], [place], [address] , [facility], [facility] 3 09:56:08 Hyperthyr oidism 14257048 Completed 201810/17/2022 Eliot Alexandra MD [address], [place], [address] , [facility], [facility] 3 09:56:40 Problem Notes None recorded. Procedures Surgical History Date Name Laterality Status Provider Name and Address Organization Details Recorded Time 11/28/19 23 Walk-In Basic Visit completed Dana Gamez [facility], [facility] 11/27/2022 16:18:30 08/31/20 21 Quality [facility] 08/31/2021 10:44:07 08/31/20 21 Quality Medication Reviewed and Updated completed [facility], [facility] 08/31/2021 10:44:07 08/31/20 21 Medicare AWV Questionnaire completed Eliot Alexandra MD [address], [place], [address], [facility], [facility] 08/31/2021 11:22:11 08/31/20 21 Quality Fall Risk Assessment Low Risk completed Negar mario [facility], [facility] 08/31/2021 10:44:07 08/31/20 21 Quality BMI with follow up completed Negar Lane [facility], [facility] 08/31/2021 10:44:07 08/31/20 21 Quality [facility] Care Planning [facility] 08/31/2021 10:44:07 08/31/20 21 Quality [facility]ence [facility]ening [facility] 08/31/2021 10:44:07 08/31/20 21 Medicare AWV - Screening Schedule completed Negar Lane [facility], [facility] 08/31/2021 10:44:07 07/22/20 21 Date of Last Mammogram completed Negar Lane [facility], [facility] 08/31/2021 10:55:28 07/13/20 21 Date of Last Pap Smear completed Negar [address] [facility], [facility] 08/31/2021 10:54:54 05/24/20 19 Thyroidectomy completed Sylv[facility], [facility] 08/16/2019 14:34:00 06/02/20 18 Hysterectomy completed Nicole Mann [facility], [facility] 09/21/2018 13:33:57 12/04/19 18 Colonoscopy completed [facility] 12/04/2017 16:48:20 11/10/19 18 Quality TCM Medication Reconciliation completed [facility], [facility] 11/10/2017 14:08:31 11/07/19 18 TCM Initial completed Kimberly Berry [facility], [facility] 11/07/2017 12:55:59 10/13/19 16 Screening pap smear by phys completed [facility] 08/28/2016 10:03:28 10/13/19 16 Mammogram Screening completed [facility] 08/28/2016 10:03:28 10/13/19 16 Cholecystectomy completed [facility] 08/28/2016 10:10:36 10/13/19 16 EGD-Upper Endoscopy completed [facility] 09/13/2016 10:03:10 10/13/19 15 Dxa bone density katia vrt fx completed [facility] 08/28/2016 10:03:28 10/13/19 15 Back surgery completed [facility] 08/28/2016 10:10:36 12/10/19 14 Colonoscopy completed Trever Rubio MD [address], [place], [address], [facility] 08/28/2016 17:39:51 10/13/19 14 Joint replacement, Knee completed [facility] 08/28/2016 10:10:36 10/13/19 13 Cardiovascular stress test completed [facility] 08/28/2016 10:03:28 10/13/18 57 Tonsillectomy completed [facility] 08/28/2016 10:10:36 Hysterectomy completed [facility] 01/29/2019 17:57:10 Stent Placement, Other completed Jazzyankita Morton [facility] 01/29/2019 17:57:10 Tubal ligation completed [facility] 01/29/2019 17:57:10 Imaging Results None recorded. Procedure Notes None recorded. Medical Equipment None Reported. Allergies Allergen ID Allergen Name Allergen Category Reaction Reaction Severity Criticality Documentation Date Start Date Code Code System Note Provider Name and Address Organization Details Recorded Time 675517 Cipro medicatio n myalgias (muscle pain) moderate Not available 09/17/201719519 3 RxNorm Possi ble tendo n issue s. COLT Tong [address], [place], [address], [facility] 7 14:28:40 [id number] nickel environme nt Not available Not available Not available 01/29/20192016 40024 29 RxNorm Jazzy Morton [facility] 9 17:36:10 Medications Name Sig Start Date Stop Date Status Note LastModified by Organization Details LastModified Time losartan 50 mg tablet Take 1 tablet every day by oral route. 08/31 completed Not Available Not Available Not Available amoxicilli n 500 mg capsule 10/10 completed Not Available Not Available Not Available atorvastat in 40 mg tablet 02/01 completed Not Available Not Available Not Available buspirone 5 mg tablet Take 1 tablet every day by oral route as needed. active Not Available Not Available No t Available atorvastat in 80 mg tablet TAKE HALF TABLET (80 MG) BY ORAL ROUTE ONCE DAILY 12/29 completed Not Available Not Available Not Available vitamin E 200 unit capsule 09/01 completed Not Available Not Available Not Available atorvastat in 20 mg tablet Take 1 tablet 3 times a week by oral route. active Not Available Not Available No t Available azithromyc in 250 mg tablet 10/20 completed Not Available Not Available Not Available hydrocodon e 5 mg-acetami nophen 325 mg tablet 09/11 completed Not Available Not Available Not Available sucralfate 100 mg/mL oral suspension 12/03 completed Not Available Not Available Not Available phenazopyr idine 200 mg tablet 10/10 completed Not Available Not Available Not Available ondansetro n HCl 4 mg tablet 1-2 po tid prn nausea 09/21 completed Not Available Not Available Not Available lidocaine 4 % topical cream apply 1/2 inch to the top of each foot tid. 12/29 completed Not Available Not Available Not Available metronidaz ole 250 mg tablet 10/10 completed Not Available Not Available Not Available valsartan 80 mg tablet 08/25 completed Not Available Not Available Not Available amlodipine 2.5 mg tablet TAKE 1 TABLET(S ) EVERY DAY BY ORAL ROUTE. 08/19 completed Not Available Not Available Not Available metronidaz ole 500 mg tablet Take 1 tablet every 8 hours by oral route for 7 days. 10/20 completed Not Available Not Available Not Available clopidogre l 75 mg tablet Take 1 tablet every day by oral route. 02/01 completed Not Available Not Available Not Available sulfametho xazole 800 mg-trimeth oprim 160 mg tablet Take 1 tablet every 12 hours by oral route for 10 days. 10/20 completed Not Available Not Available Not Available omeprazole 40 mg capsule,de layed release 09/01 completed Not Available Not Available Not Available ketorolac 10 mg tablet 12/03 completed Not Available Not Available Not Available Celebrex 200 mg capsule TAKE ONE CAPSULE BY MOUTH EVERY DAY, as needed 02/04 completed Not Available Not Available Not Available levothyrox ine 100 mcg tablet TAKE 1 TABLET EVERY OTHER DAY WITH 88 CMG TAB active Not Available Not Available No t Available levothyrox ine 88 mcg tablet TAKE 1 TABLET EVERY OTHER DAY WITH 100 MCG TAB active Not Available Not Available No t Available hyoscyamin e ER 0.375 mg tablet,ext ended release,12 hr 12/03 completed Not Available Not Available Not Available dicyclomin e 20 mg tablet Take 1 tablet 3 times a day by oral route as needed. 08/30 completed Not Available Not Available Not Available ciprofloxa mike 0.3 % eye drops Instill 2 drops every 4 hours by ophthalm ic route as directed for 10 days. 01/02 completed Not Available Not Available Not Available amitriptyl ine 10 mg tablet Take 1 tablet every day by oral route for 90 days. 08/25 completed Not Available Not Available Not Available hydrocodon e 7.5 mg-acetami nophen 325 mg tablet 12/03 completed Not Available Not Available Not Available cephalexin 500 mg capsule 10/20 completed Not Available Not Available Not Available pantoprazo le 40 mg tablet,del ayed release Take 1 tablet every day by oral route. 08/20 completed Not Available Not Available Not Available Cipro 500 mg tablet Take 1 tablet every 12 hours by oral route for 7 days. 09/17 completed Not Available Not Available Not Available nitrofuran toin macrocryst al 100 mg capsule 09/11 completed Not Available Not Available Not Available lisinopril 10 mg tablet Take 1 tablet every day by oral route. 08/31 completed Not Available Not Available Not Available hyoscyamin e 0.[address] 1 tablet 3 times a day by sublingu al route as needed. 2022 active Not Available Not Available Not Avai lable naproxen sodium 220 mg tablet Take 1 tablet every 12 hours by oral route with meals for 14 days. 08/19 completed prn Not Available Not Available Not Available nitroglyce rin 0.4 mg sublingual tablet 02/01 completed Not Available Not Available Not Available methimazol e 5 mg tablet Take 1 tablet every day by oral route. 11/02 completed Not Available Not Available Not Available docusate sodium 100 mg capsule 12/03 completed Not Available Not Available Not Available aspirin 81 mg chewable tablet 1 po qd active Not Available Not Available Not Available diclofenac sodium 75 mg tablet,del ayed release 10/20 completed Not Available Not Available Not Available hydrocodon e 5 mg-acetami nophen 500 mg tablet TAKE 1 TO 2 TABLETS BY MOUTH EVERY 4 TO 6 HOURS NEEDED 02/04 completed Not Available Not Available Not Available halobetaso l propionate 0.05 % topical cream APPLY TO AFFECTED AREA TWICE A DAY NEEDED active Not Available Not Available No t Available Nitrostat 0.[address] as needed by sublingu al route. 09/21 completed Not Available Not Available Not Available mupirocin 2 % topical ointment 08/25 completed Not Available Not Available Not Available metoprolol succinate ER 25 mg tablet,ext ended release 24 hr 08/25 completed Not Available Not Available Not Available methylpred nisolone 4 mg tablets in a dose pack 10/20 completed Not Available Not Available Not Available oxybutynin chloride 5 mg tablet 10/10 completed Not Available Not Available Not Available cefdinir 300 mg capsule 10/20 completed Not Available Not Available Not Available dicyclomin e 10 mg capsule active Not Available Not Available Not Available diazepam 5 mg tablet 12/03 completed Not Available Not Available Not Available Premarin 0.625 mg/gram vaginal cream 08/20 completed Not Available Not Available Not Available metoprolol tartrate 25 mg tablet Take 1 tablet every day by oral route. active Not Available Not Available No t Available hydrocodon e 10 mg-acetami nophen 300 mg tablet TAKE 1 TABLET BY ORAL ROUTE NEEDED 09/21 completed Not Available Not Available Not Available nitrofuran toin monohydrat e/macrocry stals 100 mg capsule 10/20 completed Not Available Not Available Not Available coenzyme Q10 200 mg capsule 02/01 completed Not Available Not Available Not Available omeprazole 01/27 completed Not Available Not Available Not Available Fish Oil 1 qd active Not Available Not Avai lable Not Available Aspir-81 1 QD 02/01 completed Not Available Not Available Not Available Vitamin D 1 qd active Not Available Not Nataliia ilable Not Available Glucosamin e 1 tablet daily 2013 active Not Available Not Available Not Avai lable Vitamin D3 1 capsle daily 2013 active Not Available Not Available Not Avai lable Carafate 01/27 completed Not Available Not Available Not Available multivitam in 1 qd 10/20 completed Not Available Not Available Not Available Calcium 500 1 qd 11/10 completed Not Available Not Available Not Available glucosamin -chond-msm -marco-115HC qd 09/21 completed Not Available Not Available Not Available CoQ-10 1 qd active Not Available Not Availa ble Not Available calcium 200 mg (as citrate)-v itamin D3 6.25 mcg (250 unit) tablet 1 po qd d active Not Available Not Available No t Available cholecalci ferol (vitamin D3) 25 mcg (1,000 unit) chewable tablet 02/01 completed Not Available Not Available Not Available levothyrox ine 112 mcg capsule Take 1 capsule every day by oral route. 08/30 completed now taking 100mcg Not Available Not Available Not Available Probiotic daily active Not Available Not Nataliia ilable Not Available ticagrelor 90 mg tablet 11/05 completed Not Available Not Available Not Available Multi Vitamin 2013 active Not Available Not Available Not Avai lable Vitals Date Recorded Body height Body mass index (BMI) Body weight Heart rate Oxygen saturation Oxygen saturation in Arterial blood by Pulse oximetry Body temperature Systolic blood pressure Diastolic blood pressure Provider Name and Address Organization Details Last Updated DateTime 3 162.56 cm 30.2 kg/m2 44152.5 4 g 54 /min 98 % 98 % 97.1 [degF] 124 mm[Hg] 78 mm[Hg] Sylvain DUNNE - [facility], [facility] 3 14:01:23 Date Recorded Body height Body mass index (BMI) Body weight Body temperature Heart rate Oxygen saturation Oxygen saturation in Arterial blood by Pulse oximetry Systolic blood pressure Diastolic blood pressure Provider Name and Address Organization Details Last Updated DateTime 3 162.56 cm 30.3 kg/m2 20928.4 1 g 98.4 [degF] 55 /min 98 % 98 % 130 mm[Hg] 76 mm[Hg] [facility], [facility] 3 14:21:58 Date Recorded Body height Body mass index (BMI) Body weight Oxygen saturation Oxygen saturation in Arterial blood by Pulse oximetry Heart rate Body temperature Systolic blood pressure Diastolic blood pressure Provider Name and Address Organization Details Last Updated DateTime 3 162.56 cm 29.8 kg/m2 49166.6 4 g 97 % 97 % 58 /min 97.7 [degF] 142 mm[Hg] 84 mm[Hg] [facility], [facility] 3 11:04:45 Date Recorded Body height Body mass index (BMI) Body weight Body temperature Oxygen saturation Oxygen saturation in Arterial blood by Pulse oximetry Heart rate Systolic blood pressure Diastolic blood pressure Provider Name and Address Organization Details Last Updated DateTime 4 162.56 cm 30.7 kg/m2 85456.3 2 g 98.3 [degF] 96 % 96 % 62 /min 156 mm[Hg] 78 mm[Hg] [facility], [facility] 4 09:28:37 Date Recorded Body height Body mass index (BMI) Body weight Body temperature Oxygen saturation Oxygen saturation in Arterial blood by Pulse oximetry Heart rate Systolic blood pressure Diastolic blood pressure Provider Name and Address Organization Details Last Updated DateTime 4 162.56 cm 28.3 kg/m2 00595.7 4 g 98.3 [degF] 99 % 99 % 55 /min 162 mm[Hg] 90 mm[Hg] [facility], [facility] 4 09:50:32 Social History Question Answer Notes LastModified by Organizat ion Details LastModified Time Tobacco Smoking Status Former Smoker Mallory maria [facility], [facility] 08/28/2016 10:19:53 Alcohol Use No Information n ot available 08/28/2016 Marital Status Informatio n not available 08/28/2016 What Was The Date Of Your Most Recent Tobacco Screening? 08/25/2024 [email or web address] Information not available 08/24/2024 Sex: Female Functional Status Question Answer Note LastModified by Organization D etails LastModified Time What is your occupation? retired Information not available 08/28/2016 What is your exercise level? Moderate bike Information not available 08/28/2016 Mental Status None recorded. Family History Relationship Description Onset Age of this Age Resolved Age Notes LastModified by Organization Details LastModified Time Mother Malignant tumor of pancreas 72 [email or web address] Not available 2019 11:11:20 Father Chronic obstructive pulmonary disease [email or web address] Not available 2019 11:11:20 Father Myocardial infarction Not available 08/28 10:12:29 Notes:Father of COPD. M other of pancreatic cancer at 72. Medical History Condition Response Cancer (location) N Other N Gout N Thyroid Disease N Kidney Stones N Emphysema/COPD N Measles/Mumps Y Sexually Transmitted Disease N Depression N Prostate Problems N Vascular Disease N Rash/Skin Condition N Amputation (location) N Parkinson's N Paralysis N Headaches/Migraines N Cardiac Pacemaker/defibrillator N Nerve Damage / Neuropathy N Arthritis N Sleep disorder/Insomnia N Heart disease / Heart Attack N Crohn's Disease N HIV/AIDS N Stroke/TIA N Colon Problems Y High Cholesterol Y Serious Injuries N Kidney Disease N Memory Loss/Alzheimer's N Gallbladder disease Y High blood pressure N Congestive heart failure N Falls N Alcohol Overuse N Blood Thinner Treatment N Hormone Replacement N Nervous Breakdown N Marino's Esophagus N Anemia N Urinary Problems N Colon Polyps N Gastritis N Hospitalizations (other than operations) N Back pain Y Diabetes N Rheumatic Fever N Bleeding Disorder N Cardiac Arrhythmias /irregular heart rat e N Osteopenia/Osteoporosis N Anxiety/Stress N Asthma N Vision Problems N Erectile / Sexual Dysfunction N Ostomies (location) N Seizures N Jaundice N Sleep Apnea N Hepatitis N Past Reacton to Contrast Media N Cirrhosis N GERD/Ulcer N Chicken Pox N Allergies (other than meds) N Gynecological History Statement/Question Response HPV Vaccine N Abnormal Pap N Date of Last Pap Smear 07/13/2021 3 Date of Last Mammogram 07/22/2021 Para 3 Obstetrics History GPAL:G 0 P 0 0 0 0 Immunizations Vaccine Type Date Status Note Provider Nam e and Address Organization Details Recorded Time Influenza, high-dose, trivalent, PF 0 completed Not Available [facility] 10/19/2023 00:09:07 COVID-19, mRNA, LNP-S, PF, 100 mcg/0.5mL dose or 50 mcg/0.25mL dose [address] [facility] 08/31/2021 10:35:10 COVID-19, mRNA, LNP-S, PF, 100 mcg/0.5mL dose or 50 mcg/0.25mL dose [address] [facility], [facility] 08/31/2021 10:35:10 Influenza, split virus, quadrivalent, preservative 1 completed Not Available [facility], [facility]–1983 10/19/2023 00:09:07 COVID-19, mRNA, LNP-S, PF, 100 mcg/0.5mL dose or 50 mcg/0.25mL dose 1 completed Not Available [facility], [facility] 10/19/2023 00:09:07 SARS-COV-2 (COVID-19) vaccine, UNSPECIFIED 3 completed aDna Gamez [facility] 10/20/2023 09:26:28 COVID-19, mRNA, LNP-S, PF, gilbert-sucrose, 30 mcg/0.3 mL 4 completed Dana Gamez [facility] 08/24/2024 16:29:52 SARS-COV-2 (COVID-19) vaccine, UNSPECIFIED 4 completed Dana Gamez [facility] 08/25/2024 09:49:10 Past Encounters Encounter ID Performer Location Encounter Start Date Encounter Closed Date Diagnosis/Indication Diagnosis SNOMED-CT Code Diagnosis ICD10 Code Diagnosis Note [id number] MD MARYURI Siddiqui [address] [place] [address] 08/28/2016 09:44:54 08/28/2016 12:18:01 Right lower quadrant pain 637388692 R10.31 Abnormal f indings on diagnostic imaging of urinary organs 374761690 R93.41 Diarrhea 79494574 R19.7 Diverticul ar disease of colon 281952209 K57.30 Scoliosis deformity of spine 132813483 M41.9 Hyperlipidemia 91293809 E78.5 [id number] ED Alicea [facility] [address] [facility] [address] [place] [address] 09/17/2016 14:40:11 09/17/2016 17:26:58 Chronic low back pain 099254728 M54.5 [id number] Trever Rubio MD [facility] [address] [place] [address] 12/12/2016 15:22:18 12/12/2016 16:26:01 Elevated blood-pressure reading without diagnosis of hypertension 807198238 R03.0 Hiatal hernia 27961299 K 44.9 Renal colic 4635942 N23 Hydroureter 10392070 N13 .4 [id number] Trever Rubio MD [facility] [address] [place] [address] 01/27/2017 14:09:22 01/27/2017 16:05:03 Benign essential hypertension 2875021 I10 Subconjunc tival hemorrhage 40237912 H11.32 Hydroureter 15813061 N13 .4 [id number] Trever Rubio MD [facility] [address] [place] [address] 08/19/2017 09:53:34 08/19/2017 13:02:14 Myocardial infarction 28537858 I21.A9 Stented co ronary artery 743736986 Z95.5 Hyperlipidemia 02718850 E78.5 Hyperthyroidism 43012099 E05.90 [id number] COLT Venegas [facility] [address] [facility] [address] [place] [address] 09/06/2017 08:14:05 09/06/2017 09:13:03 Acute urinary tract infection 357392547 N39.0 Urinalysis dip postive trace leukocytes and moderate bloodDiscu ssed diagnosis ofpresumpt iveUTI and plan of care reviewed.Angel Regalado is a complicate d case with a history of repair of right urethral stricture in October. Will continue antibiotic coverage with Cipro 500 mg BIDShe has f/u with urology on Friday and given her history they can follow up on her continued symptoms.A dvised to have low threshold to seek medical attention if symptoms worsen with increasing pain, fever, nausea, vomiting, weakness or confusion. Benefits of probiotic to manage GI side effects of antibiotic s reviewed.G astric ronald protection with florastor 250 mg 2 tablets BID with juice or milkIncrea se fluidsUTI care instructio ns provided and risks reviewed [id number] Trever Rubio MD [facility] [address] [place] [address] 09/08/2017 14:41:25 09/08/2017 16:51:08 Right flank pain 546896099 R10.9 Blood in urine 33504424 R31.9 History of reimplantation of ureter 936246032 Z96.0 [id number] COLT Tong [facility] [address] [place] [address] 09/12/2017 10:55:28 09/15/2017 11:36:44 Acute stress disorder 93314008 F43.0 Acute. Worsening. Rx for buspar - initially use prn. Abdominal pain 53715172 R10.9 Acute. Improved today. Seen in ER yesterday. Rx for ondansetro n as needed for nausea. [id number] COLT Tong Dalton [facility] [address] [place] [address] 09/17/2017 13:54:43 09/17/2017 14:32:47 Pain in both feet 9008247130 0761708 M79.671 Acute. Uncontroll ed/unchang ed. Rx for topical lidocaine 4% cream - apply 1/2 inch to the area of pain qid. Recommend hs warm water foot soaks. Rest feet as much as possible over the next week. Follow-up or report if symptoms are no better or any worse. Patient voiced understand ing and agreement with treatment plan. *Per pt request, added cipro as a possible intoleranc e. [id number] Trever Rubio MD [facility] [address] [place] [address] 11/07/2017 12:54:33 11/07/2017 12:59:26 [id number] Trever Rubio MD [facility] [address] [place] [address] 11/10/2017 14:00:28 11/10/2017 15:58:45 Chest pain 96824712 R07.89 Coronary arteriosclerosis in [place] artery 5252843844 107 I25.10 Stented co ronary artery 604227391 Z95.5 Hypothyroidism 24472348 E03.9 Hyperlipidemia 69008704 E78.5 Gastroesop hageal reflux disease 801378327 K21.0 Esophagitis 50463666 K20 .9 Erythemato us duodenopathy 401456905 K31.89 [id number] Trever Rubio MD [facility] [address] [place] [address] 12/29/2017 14:17:30 12/29/2017 15:28:34 Coronary arteriosclerosis in [place] artery 8411757769 107 I25.10 Stented co ronary artery 598612541 Z95.5 Myocardial infarction 22 920863 I21.A9 Gastroesop hageal reflux disease 493660015 K21.0 Hyperlipidemia 06058369 E78.5 Hypothyroidism 81232044 E03.9 History of reimplantation of ureter 805737661 Z96.0 [id number] COLT Tong [facility] [address] [place] [address] 08/20/2018 14:29:13 08/23/2018 19:54:33 Acute urinary tract infection 753552931 N39.0 Acute. Worsening. Initial treatment. Rx for oral antibiotic . Encourage good po fluid intake. Follow-up with PCP or at the walk-in if no better or any worse. Patient voiced understand ing and agreement with treatment plan. [id number] MD MARYURI Mckeon [address] [place] [address] 09/21/2018 13:09:42 09/21/2018 13:59:46 Gastroesophageal reflux disease 539667107 K21.9 STABLE. CONTINUE WITH MEDICATION . Hyperthyroidism 51500128 E05.90 STABLE. CONTINUE WITH MEDICATION . Hyperlipidemia 29905216 E78.5 STABLE. CONTINUE WITH MEDICATION . [id number] MD MARYURI Mckeon [address] [place] [address] 02/01/2019 11:08:49 02/01/2019 11:38:54 Body mass index 30+ - obesity 867577056 E66.9 Z68.30 weight issues discussed and informatio n on weight loss given. Needs follow up on weight control as scheduled. Education handout on diets given. Exercise counseling done. Will arrange referral for dietitian, nutritioni st, Physical/o ccupationa l therapy as needed or desired. Also will consider pharmaceut ical and supplement al interventi ons Obesity 422074407 E66.9 Diet education 00141638 Z71.3 as above Hyperthyroidism 72034601 E05.90 STABLE. CONTINUE WITH MEDICATION . Gastroesop hageal reflux disease 284022689 K21.9 STABLE. CONTINUE WITH MEDICATION . Coronary arteriosclerosis in [place] artery 7779817439 107 I25.10 stable. Continue with medication . Hyperlipidemia 97057379 E78.5 STABLE. CONTINUE WITH MEDICATION . [id number] COLT Pearce [facility] [address] [place] [address] 08/16/2019 14:12:17 08/17/2019 18:16:18 Postoperative hypothyroidism 98500407 E89.0 check TSH in September. Posterior rhinorrhea 758 30334 R09.82 I do not think her sinus drainage symptoms was related to her thyroid dosage change. It is improving but rather than using oral antihistam ine I recommend she use flonase. I also advise to return for eval should she again worsen. Cough 84386847 R05 report if not continuing to improve and resolve w/ tx of PND. [id number] Eliot Alexandra MD [facility] [address] [place] [address] 11/02/2019 11:04:52 11/03/2019 07:08:38 Body mass index 30+ - obesity 889097479 Z68.31 weight issues discussed and informatio n on weight loss given. Needs follow up on weight control as scheduled. Education handout on diets given. Exercise counseling done. Will arrange referral for dietitian, nutritioni st, Physical/o ccupationa l therapy as needed or desired. Also will consider pharmaceut ical and supplement al interventi ons Obesity 641535078 E66.9 see BMI above for details Diet education 99355178 Z71.3 as above Cobalamin deficiency 190 146803 E53.8 Postoperat peter hypothyroidism 97435160 E89.0 Long-term drug therapy 323609202 Z79.899 [id number] Eliot Alexandra MD [facility] [address] [place] [address] 12/30/2019 09:47:31 12/31/2019 07:01:06 Body mass index 30+ - obesity 936124750 E66.9 Z68.30 weight issues discussed and informatio n on weight loss given. Needs follow up on weight control as scheduled. Education handout on diets given. Exercise counseling done. Will arrange referral for dietitian, nutritioni st, Physical/o ccupationa l therapy as needed or desired. Also will consider pharmaceut ical and supplement al interventi ons Obesity 399506507 E66.9 see BMI above for details Diet education 15165371 Z71.3 as above Right lowe r quadrant pain 383090252 R10.31 [id number] Eliot [facility] [address] [facility] [address] 08/30/2020 10:04:30 08/30/2020 10:40:14 Benign essential hypertension 2574124 I10 Coronary arteriosclerosis in [place] artery 7122086250 107 I25.10 stable. Continue with medication . Angiotensi n-convertin g-enzyme inhibitor adverse reaction 541729364 T46.4X5A throat irritation with lisinopril Contractur e of palmar fascia 008730434 M72.0 right handher Atheroscle rosis of aorta 23819478 I70.0 stable. monitor for symptoms. [id number] Eliot Alexandra MD [facility] [address] [place] [address] 08/31/2021 10:26:44 08/31/2021 11:31:41 Adult health examination 807319879 Z00.00 Annual Wellness Visit done today Increased body mass index 87936227 Z68.29 elevated BMI. Discussed diet and better therapeuti c lifestyle changes. Diet education 94029908 Z71.3 as above Hyperthyroidism 96337406 E05.90 stable. continue with llevothyro xine 100 g once a day.. Gastroesop hageal reflux disease 103175883 K21.9 stable. continue to monitor for symptoms. Hyperlipidemia 50468054 E78.5 stable. continue with atorvastat in 20 mg once daily.. Scoliosis deformity of spine 990562234 M41.9 patient presents with chronic pain which is unrelentin g.For patient to pain management for possible epidural injections . Benign ess ential hypertension 5370131 I10 stable. Continue with metoprolol 25 mg once daily. The patient did stop taking the lisinopril and the losartan prescribed previously as directed by her cardiologi [facility]. Her throat irritation which she presented with last visit has resolved. Coronary arteriosclerosis in [place] artery 2333444143 107 I25.10 stable. Continue with medication . follow-up with cardiologi in [place] [id number] _ATHN_MIGR ATION_1 [facility] [place] [address] [facility] [address] [place] [address] 10/19/2013 00:00:00 10/19/2013 15:02:05 [id number] _ATHN_MIGR ATION_1 _ATHENA_M IGRATION_ DEFAULT_2 2_1 , 10/28/2013 00:00:00 12/08/2013 10:37:16 [id number] _ATHN_MIGR ATION_1 _ATHENA_M IGRATION_ DEFAULT_2 2_1 , 12/23/2013 00:00:00 12/23/2013 14:30:54 [id number] Eliot Alexandra MD [facility] [address] [place] [address] 02/04/2022 10:36:00 02/05/2022 16:44:33 Hypothyroidism 89941691 E03.9 surgical hypothyroi dism.We will send a prescripti on for brand name Synthroid to a pharmacy and see if they will cover it. Daytime hypersomnia 3177 938687 0824 G47.19 with possible sleep apnea.We did discuss overnight sleep studies however, she will be leaving for [place] soon.I told her to discuss the issue with her PCP so she can see a specialist or at least have home sleep study. [id number] Eliot Alexandra MD [facility] [address] [place] [address] 10/17/2022 09:38:58 10/17/2022 23:05:43 History of SARS-CoV-2 8824517525 35281045 Z86.27 April 2022; No residual symptom Coronary arteriosclerosis in [place] artery 0029966613 107 I25.10 stable. Continue with medication . follow-up with cardiologi in [place] Pain of ri ght knee joint 7552379521 97440 M25.561 ongoing subacute issue.The patient thinks that she tore a meniscus again.we will refer the patient to an orthopedic surgeon for evaluation and treatment. Irritable bowel syndrome 23190376 K58.9 stable. continue with probiotic once a day. Adverse re action to drug 09756607 T50.905A recurring nightmares probably secondary to amitriptyl ine use.I told her to stop taking the amitriptyl ine for now. She may take melatonin for sleep.Call back if symptoms persists. [id number] COLT Pearce [facility] [address] [place] [address] 11/22/2022 13:45:17 11/22/2022 16:19:48 Dysuria 69794277 R30.0 she has only minimal tenderness in abd. do not suspect bowel infection, most likely uti. start macrobid and culture urine. keep up with increased fluids. f/u pending result Abdominal pain 54498926 R10.9 same as above [id number] MD MARYURI Mckeon [address] [place] [address] 11/28/2022 14:13:33 11/30/2022 21:44:00 Bowel spasm 378113830 R25.2 probably secondary to mild diverticul itis.The patient really does not want to take any antibiotic . Her symptoms are episodic.W e will treat her symptomati carlita. We will start patient on Levsin 0.125 mg up to 3 times a day as needed. Possible side effects discussed. I told her she needs to make sure that she has a follow-up appointmen t with PCP with possible referral to GI when she gets back home to [place] in February. [id number] MD MARYURI Mckeon PCP [address] [place] [address] 12/10/2022 10:48:58 12/10/2022 14:31:13 Diverticulitis of colon 379753207 K57.32 rule out IBS.The patient may continue with dicyclomin e 10 mg as needed. I told him it is quite safe for her to use it.I gave her prescripti on for the Flagyl 500 mg 3 times a day and she will see if she really needs the next few days.I told her she needs to make sure she has a follow-up appointmen t with her PCP and also with her gastroente rologist when she gets back home in February.Advanc e activity and diet as tolerated. [id number] MD MARYURI Mckeon PCP [address] [place] [address] 10/20/2023 09:18:17 10/21/2023 19:04:12 Benign essential hypertension 1859617 I10 chronic, uncontroll ed.I told her to increase the dose of metoprolol 25 mg 2 times a day.Contin ue recording blood pressures at home. Skin lesion 61988789 L98 .9 right shoulder area.The patient will keep her appointmen t with the dermatolog ist Osteoarthr itis of right knee joint 2682390120 41563 M17.11 chronic, ongoing issue. She is receiving Synvisc shots. Follow-up with orthopedic surgeon as scheduled. Atheroscle rosis of aorta 51527921 I70.0 stable. continue to monitor for symptoms. order imaging study as needed. [id number] MD MARYURI Mckeon PCP [address] [place] [address] 08/25/2024 09:39:56 08/25/2024 10:19:34 Influenza vaccination declined 105884013 Z28.21 - Patient declined influenza vaccinatio n.- Educated patient on the importance of annual influenza vaccinatio n, especially given her age and comorbid conditions . Benign ess ential hypertension 0120219 I10 - Chronic, stable condition. - Blood pressure today is 144/76 mmHg.- Advised patient to monitor blood pressure at home regularly. - Patient reported discontinu ation of valsartan due to adverse effects including dizziness, weakness, and shakiness. - Continue current antihypert ensive regimen with metoprolol 25 mg once daily. Osteoarthr itis of right knee joint 1509793829 47402 M17.11 - Chronic, symptomati c condition with bone-on-kenny ne changes.- Patient is currently taking glucosamin e, which provides some relief.- Discussed potential for knee surgery with Dr. Tineo, an orthopedic surgeon.- Advised patient to consider surgical options if symptoms worsen. Atheroscle rosis of aorta 28475374 I70.0 - stable. continue to monitor for symptoms. order imaging study as needed. Scoliosis deformity of spine 072687146 M41.9 - Chronic condition with back pain.- Patient has been seeing a chiropract or, which has provided some relief.- Continue current management and consider physical therapy if symptoms persist. Osteoarthritis 127280668 M19.90 - Chronic, stable condition. - Continue current management with glucosamin e and over-the-c ounter pain relief as needed. Coronary arteriosclerosis in [place] artery 2252807544 107 I25.10 - Chronic, stable condition. - No new symptoms reported.- Continue current management with atorvastat in 20 mg once daily and CoQ10. Hypothyroidism 78473408 E03.9 - Chronic, stable condition. - Patient is on a regimen of alternatin g doses of levothyrox ine 88 mcg and 100 mcg every other day.- Continue current dosing schedule. Health Concerns Section Related Observation LastModified by Organization Detai ls LastModified Time None Recorded Concern Status LastModified by Organization Details LastModified Time None Recorded Advance Directives Directive None Recorded Payers Insurance Date Sequence Insurance Name Policy Number Policy Madsen Covered Member ID Madsen Member ID Guarantor Name 08/13/2024 1 PATIENCE DANIELLEA - MEDICARE-[address] (MEDICARE) Nicolette Regalado [id number] Nicolette Regalado 11/04/2018 1 [place] Nicolette Regalado [id number] Nicolette Regalado 08/25/2024 2 [facility] D AND F (MEDICARE SUPPLEMENT) [id number] Frantz Regalado [id number] Nicolette Regalado 08/28/2016 1 *SELF PAY* Re anoop Regalado Notes Date Note Type Note Provider Name and Address Organization Details Recorded Time 11/22/2022 text/html Ms. Regalado pres ents today with complaint of dysuria urinary frequency and lower abdominal discomfort.Her symptoms started Friday and waxed and waned again flaring up today. COLT Pearce [address], [place], [address], [facility] 11/22/2022 14:23:45 11/28/2022 text/html HYPOGASTRIC PAIN AND SPASMS. The patient was recently seen for possible UTI. However, her urine culture came back negative. She did not feel that the medication prescribed to her help. She continues to have episodic pain near the hypogastrium and at times on the left side of her abdomen. No fever or chills. Bowel movements are normal. She denies having any blood per stool. The patient admits that she has had episodes of diverticulitis in the past. No fever or chills. She has not eaten anything out of the ordinary. Eliot Alexandra MD [address], [place], [address], [facility] [employer] 11/28/2022 19:40:37 12/10/2022 text/html POSSIBLE DIVERTICULITIS. Over the weekend,she started having increasing lower abdominal discomfort and cramping. She also had some diarrhea. No blood per stool reported. No fever or chills. She did not deviate from her usual diet. She cannot recall eating anything out of the ordinary. No nausea or vomiting. She has maintained a full liquid diet since 3 days ago. She is feeling a lot better. She remembered that she has a prescription for dicyclomine 20 mg which she has been taking twice a day. She is concerned because she read that you are not supposed to take that for a long period of time or if you are above 65. Eliot Alexandra MD [address], [place], [address], [facility] 12/10/2022 20:51:18 10/20/2023 text/html HYPERTENSION. Th e patient has been getting high systolic blood pressure readings for the past couple of months. She currently takes metoprolol 25 mg once a day. The patient has tried taking valsartan and lisinopril in the past and she didn't like the way it made her feel when she took those. No associated symptoms. Patient denies any lightheadedness. No headache. No blurring of vision. SKIN LESION, RIGHT SHOULDER. The patient has a small pinkish lesion on the right shoulder area. It has been slowly getting bigger. She has an appointment with the elevator starter soon. She has never been told she had skin cancer in the past. RIGHT KNEE PAIN. The patient has been seeing an orthopedic doctor regarding a pain on the right knee. She will be getting Synvisc injection in the near future. She really does want to have knee replacement surgery. She is not taking any anti-inflammatory pain medication on a regular basis. Eliot Alexandra MD [address], [place], [address], [facility] 10/20/2023 21:20:19 08/25/2024 text/html The patient is a 74-year-old female with a history of scoliosis and knee osteoarthritis, presenting for a follow-up visit. The patient recently returned from [place] on August 11. While in [place], she had a routine examination with her primary care physician in February, who advised her to continue her current medications. She also consulted her acquisition analyst, who reported normal findings without ordering additional tests. Additionally, she visited a elevator starter, who found no abnormalities, and a chiropractor for scoliosis-related back issues, which she believes provided some relief. The patient reports ongoing knee pain and has not seen her orthopedic surgeon, Dr. Tineo, this year. She is currently taking glucosamine, which she finds helpful, and is considering knee surgery due to her bone on bone condition. She is not taking amitriptyline 10 mg at bedtime and reports variable but generally good sleep. Her current medications include atorvastatin 20 mg daily, buspirone 5 mg as needed, calcium + D, CoQ10, fish oil, glucosamine, multivitamin, levothyroxine alternating 88 mcg and 100 mcg every other day, metoprolol 25 mg daily, multivitamin, probiotic, vitamin D3, Tylenol as needed, and alobetasol cream. She discontinued valsartan due to severe side effects, including dizziness, weakness, and shakiness, which impaired her ability to function and caused near falls. She had a bone density test and mammogram 2-3 years ago, both of which were normal. She received a COVID-19 vaccine about a month ago and has had both pneumonia vaccines. She has not received the shingles vaccine but had shingles approximately 20 years ago. Eliot Alexandra MD [address] [address], [place], [address], [facility] - [facility], [facility] 08/25/2024 13:27:14 OBGyn Episode No OBEpisode recorded.
--- OUTSIDE RECORDS SUMMARY | 2025-03-04 09:26 | XMS_ITS | Encounter Summary ---
Author Organization [facility] Address [address] [place] [address] Care Team Providers Care Director Graphics Name Role Phone Janina Castro MD Primary Care Provider [phone] Source Comments In the event this information is protected by the Federal Confidentiality of Alcohol and Drug AbusePatient Records regulations: The Federal rules restrict any use of the information to criminally investigate or prosecute any alcohol or drug abuse patient.[facility] Encounter Details Date Type Department Care Team (Late st Contact Info) Description 10/15/2017 Get Medical Advice Endocrinology [address] [facility] FIRST [address]LOOR, [address] [place] [address] [place] [address] [facility] [address] [place] [address] RE: Visit Follow Up Question Social History [...] on filedocumented in this encounter Care Teams Director Graphics Relationship Specialty Start Date End Date Janina Castro MD [address] [place] [address] PCP - General Family Medicine 07/17/17 documented as of this encounter
--- OUTSIDE RECORDS SUMMARY | 2025-03-04 09:26 | XMS_ITS | Encounter Summary ---
Author Organization [facility] Address [address] [place] [address] Care Team Providers Care Software Sales Name Role Phone Janina Castro MD Primary Care Provider [phone] Source Comments In the event this information is protected by the Federal Confidentiality of Alcohol and Drug AbusePatient Records regulations: The Federal rules restrict any use of the information to criminally investigate or prosecute any alcohol or drug abuse patient.[facility] Encounter Details Date Type Department Care Team (Late st Contact Info) Description 10/24/2017 Get Medical Advice Endocrinology [address] [facility] FIRST FLOOR, [address] [place] [address] [place] [address] [facility] [address] [place] [address] RE: Medication Question (Not Renewal) Social History [...] on filedocumented in this encounter Care Teams Software Sales Relationship Specialty Start Date End Date Janina Castro MD [address] [place] [address] PCP - General Family Medicine 07/17/17 documented as of this encounter
--- OUTSIDE RECORDS SUMMARY | 2025-03-04 09:26 | XMS_ITS | Encounter Summary ---
Author Organization [facility] Address [address] [place] [address] Care Team Providers Care Intermediate School Teacher Name Role Phone Janina Castro MD Primary Care Provider [phone] Encounter Details Date Type Department Care Team (Latest Contact Info) Description 04/23/2018 Surg/Proc Orders [facility] Gynecologic Oncology Services [facility] [address] [place] [address] Farhad Mendez MD Endometrial adenocarcinoma (HCC) (Primary [...] Hospital Encounter [facility] [address] [place] [address] Jeramie Younger MD [facility] [place] [address] 03/24/2025 10:04 AM EDT - 03/24/2025 12:39 PM EDT Surgery [facility] [address] [place] [address] Jeramie Younger MD [address] [place] [address] RIGHT TOTAL KNEE ARTHROPLASTY 05/16/2025 11:10 AM EDT Office Visit [facility] OBSTETRICS & GYNECOLOGY Part of [address] [place] [address] Shelby Castillo APRN - [address] [place] [address] yearly--last seen by Dr Gutierrez [...] documented as of this encounter Care Teams Intermediate School Teacher Relationship Specialty Start Date End Date Janina Castro MD PCP - General Family Medicine 04/10/18 documented as of this encounter
--- OUTSIDE RECORDS SUMMARY | 2025-03-04 09:26 | XMS_ITS | Encounter Summary ---
Author Organization [facility] Address [address] [place] [address] Care Team Providers Care Dramatic Agent Name Role Phone Janina Castro MD Primary Care Provider [phone] Source Comments In the event this information is protected by the Federal Confidentiality of Alcohol and Drug AbusePatient Records regulations: The Federal rules restrict any use of the information to criminally investigate or prosecute any alcohol or drug abuse patient.[facility] Encounter Details Date Type Department Care Team (Late st Contact Info) Description 08/29/2017 Get Medical Advice Endocrinology [address] [facility] FIRST FLOOR, [address] [place] [address] [place] [address] [facility] [address] [place] [address] Medication Question (Not Renewal) Social History Tobacco [...] on filedocumented in this encounter Care Teams Dramatic Agent Relationship Specialty Start Date End Date Janina Castro MD [address] [place] [address] PCP - General Family Medicine 07/17/17 documented as of this encounter
--- OUTSIDE RECORDS SUMMARY | 2025-03-04 09:26 | XMS_ITS | Patient Health Record ---
Author Organization [facility] Address [address] [place] [address] Care Team Providers Care Pomology Teacher Name Role Phone Matthew Harman, Janina Primary Care Provider Unavail able RodríguezTommy bolanosen Unavailable [phone] Self, Referral Unavailable Unavailable MelaniePeggy Unavailable [phone] Jeramie Younger Unavailable [phone] Jose Ramon Sung Unavailable [phone] Sylvain Snyder Unavailable [phone] Allergies No Known Allergies Results Component Value Reference Range Notes Surgery Scheduling (Not yet reviewed by provider) Interpretation: Performing Lab: Notes/Report: Primary Insurance Company: Railroad Medicare Surgeon/Assist: Jeramie Younger MD Surgery Location: [facility] Surgery Date & Time: March 24, 2025 Procedure: Right Total Knee Art hroplasty CPT 26453 Special Equipment: Tayler Persona Diagnosis: Right Knee Pain/OA Admission Type: outpatient Anesthesia Type/CPNB: Regional/Spinal Bed 23 hr Lab Location: [facility] Claim Approver: Makayla Ruiz Physician: Janina Zhao Reason For Referral Reason NO AUTH REQ...............................03/24/25............................[facility] Right Total Knee Artrhroplasty @ [facility] Diagnosi s 1 Primary osteoarthritis of right knee (M1 7.11) Diagnosi s 2 Right knee pain (M25.561) Referral [facility] Gabriel wu Provider First Name Jeramie wu Provider Last Name Aren wu Provider Speciali ty Orthopedic Surgery Referred Orelandisatu traore [facility] Referred Address [address],[place], [place],[place] Procedur e 1 Arthroplasty Knee Total Med/Lat Compartm ents ([address]) General Notes Makayla Ko 02/23/2025 01:13:40 PM >, Dana Sebastian 02/23/2025 01:16:10 PM > MEDICARE PARTS A & B ACTIVE AND EFFECTIVE 03/13/10 PER AVAILITY WITH [facility] SECONDARY. NO AUTHORIZATION REQUIRED. 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 ; Encounter for preprocedural cardiovascular examination Z01.810 ; Encounter for other preprocedural examination Z01.818 and Right knee pain M25.[address] [place] [address] 02/22/2025 Jose Ramon Sung [address] [place] [address] 02/22/2025 Jeramie Younger Assessments Encounter Date Diagnosis [...] Name Order Date Chest 2 views - 09425 02/21/2025 PT/ INR - 63050 02/21/2025 EKG 02/21/2025 CBC 02/21/2025 CMP 02/21/2025 Surgery Scheduling 02/23/2025 MRSA (Bilateral Nares) PCR 02/21/2025 APTT 02/21/2025 UA with Reflex C & S 02/21/2025 SCC- KNEE 4 VIEW RIGHT 74180 02/16/2025 RSS- PT- s/p total knee 2-3 x per week f or 6 weeks 02/21/2025 Next Appt Details Provider Name:Jeramie Younger, 03/14/2025 10:30:00 AM, [address], [facility] [address], [place], [address], Provider Name:Jeramie Younger, 03/24/2025 09:30:00 AM, [address] [place], [address], Provider Name:Jeramie Younger, 04/11/2025 09:50:00 AM, [address], [place], [address], Insurance Providers Payer Name Payer Address Payer Phone Subscriber Number Group Number Insured Name Patient Relationship to Insured Coverage Start Date Coverage End Date [employer] [address] [address] [place] [address] [phone] [id number] GARTH OLGUIN Self - patient is the insured [address] [place] [address] [address] [address] [place] [phone] [id number] FRANTZ OLGUIN Spouse - patient is the [...]
--- OUTSIDE RECORDS SUMMARY | 2025-03-04 09:26 | XMS_ITS | Encounter Summary ---
Author Organization [facility] Address [address] [place] [address] Care Team Providers Care Pharmacy Data Analyst Name Role Phone Janina Castro MD Primary Care Provider Encounter Details Date Type Department Care Team (Late st Contact Info) Description 07/25/2021 Abstract [facility] OBSTETRICS & GYNECOLOGY [address] [place] [address] [address] [place] [address] Jeovany Betancourt MD [address] [facility] [address] [place] [address] Social History Tobacco Use Types [...] Encounter [facility] [address] [place] [address] Jeramie Younger MD [facility] [place] [address] 03/24/2025 10:04 AM EDT - 03/24/2025 12:39 PM EDT Surgery [facility] OR [address] [place] [address] Jeramie Younger MD [facility] [place] [address] RIGHT TOTAL KNEE ARTHROPLASTY 05/16/2025 11:10 AM EDT Office Visit [facility] OBSTETRICS & GYNECOLOGY Part of [address] [place] [address] Shelby Castillo APRN - [address] [place] [address] yearly--last seen by Dr Gutierrez [...] documented as of this encounter Care Teams Pharmacy Data Analyst Relationship Specialty Start Date End Date Janina Castro MD PCP - General Family Medicine 04/10/18 documented as of this encounter
--- OUTSIDE RECORDS SUMMARY | 2025-03-04 09:26 | XMS_ITS | Encounter Summary ---
Author Organization [facility] Address [facility] [place] [address] Care Team Providers Care Teacher Asst Name Role Phone Janina Castro MD Primary Care Provider [phone] Source Comments In the event this information is protected by the Federal Confidentiality of Alcohol and Drug AbusePatient Records regulations: The Federal rules restrict any use of the information to criminally investigate or prosecute any alcohol or drug abuse patient.[facility] Encounter Details Date Type Department Care Team ([facility] Contact Info) Description 04/27/2019 Patient Msg Medical Records [address] [place] [address] Provider, [facility] Prescribed Patient Education Video(s) Social [...] on filedocumented in this encounter Care Teams Teacher Asst Relationship Specialty Start Date End Date Janina Castro MD [address] [place] [address] PCP - General Family Medicine 07/17/17 documented as of this encounter
--- OUTSIDE RECORDS SUMMARY | 2025-03-04 09:27 | XMS_ITS | Encounter Summary ---
Author Organization [facility] Address [address] [place] [address] Care Team Providers Care Tone Regulator Name Role Phone Janina Castro MD Primary Care Provider [phone] Source Comments In the event this information is protected by the Federal Confidentiality of Alcohol and Drug AbusePatient Records regulations: The Federal rules restrict any use of the information to criminally investigate or prosecute any alcohol or drug abuse patient.[facility] Encounter Details Date Type Department Care Team (Late st Contact Info) Description 04/14/2018 Patient Msg Endocrinology [address] [facility] FIRST FLOOR, [address] [place] [address] [place] [address] [facility] [address] [place] [address] RE:hyperthyroidism & hysterectomy Social History Tobacco Use [...] on filedocumented in this encounter Care Teams Tone Regulator Relationship Specialty Start Date End Date Janina Castro MD [address] [place] [address] PCP - General Family Medicine 07/17/17 documented as of this encounter
--- OUTSIDE RECORDS SUMMARY | 2025-03-04 09:27 | XMS_ITS | Encounter Summary ---
Author Organization [facility] [employer] [facility] tem Address [id number] [address] [place] [address] Care Team Providers Care Greaser Helper Name Role Phone Unavailable Primary Care Provider Unavailabl e Encounter Details Date Type Department Care Team (Late st Contact Info) Description 04/17/2023 Orders Only [facility] [address] [place] [address] Janina Castro MD [address] [place] [address] Social History Tobacco Use Types [...]
--- OUTSIDE RECORDS SUMMARY | 2025-03-04 09:27 | XMS_ITS | Clinical Summary ---
Author Organization [facility] Address [address] [place] [address] Phone Care Team Providers Care Test Examiner Name Role Phone Janina Castro MD Primary Care Provider [phone] Allergies Active Allergy Reactions Criticality Noted Date [...] tablet by mouth once daily. Active omega 6-iel-get-fish oil (Fish OiL) 1,000 mg (120 mg-180 [...] infarction (Multi) 06/07/2023 PFO (patent foramen ovale) ([facility]) 06/07/2023 TIA (transient ischemic attack) 06/07/2023 Former smoker 06/07/2023 Resolved Problems Problem Noted Date Diagnosed Date Resolved Date Class 1 obesity with alveola r hypoventilation and body mass index (BMI) of 30.0 to 30.9 in adult 06/07/2023 02/25/2024 Encounters Date Type Department Care Team Description 02/24/2025 10:30 AM EDT Office Visit [address] [address] Lul Rose S, DO Preop cardiovascular exam; ASHD (arteriosclerotic heart disease); History of PTCA; Myocardial infarction, unspecified MD type, unspecified artery (Multi); Mixed hyperlipidemia; Essential hypertension; PFO (patent foramen ovale) ([facility]); Bilateral carotid artery stenosis; TIA (transient ischemic attack); Former smoker; BMI 29.0-29.9,adult 02/24/2025 Telephone [facility] [address] [place] [address] Shayy Crawley LPN Lab Orders [...] Info) Description 03/17/2025 8:00 AM EDT Appointment [address] [place] [address] 03/17/2025 8:30 AM EDT Appointment [address] [place] [address] 03/17/2025 9:00 AM EDT Appointment [address] [place] [address] 03/17/2025 9:30 AM EDT Appointment [address] [place] [address] 03/17/2025 9:45 AM EDT Appointment [address] [place] [address] 02/16/2026 9:45 AM EDT Appointment [address] [place] [address] 03/01/2026 10:30 AM EDT Office Visit [address] [place] [address] Lul Rose, [address] [place] [address] 2, [facility] [address] [place] [address] Health Maintenance Due Date Last Done Comments [...] to complete this topic Insurance MEDICARE [facility] Care Teams Test Examiner Relationship Specialty Start Date End Date Janina Castro MD [address] [place] [address] PCP - General 04/03/21
--- OUTSIDE RECORDS SUMMARY | 2025-03-04 09:27 | XMS_ITS | Data Portability ---
Author Organization [place] [facility] Address [address] [place] [id number] Assessment Encounter Date Assessment Date Assessment LastModified by Organization Details LastModified Time 10/28/2013 10/28/2013 New patient. See history of present illness Abdominal pain. Recent workup has been, negative. Baseline labs to be done. Referral to gastroenterology . Danger signs and symptoms reviewed. No dysuria or frequency. No nausea, vomiting Recent diagnostics, including urinalysis, and computed tomography scan of the abdomen and pelvis, and laboratory data reviewed. Chronic history of low back pain. Gojq-tbp-jplzzl r medications reviewed. Avoid NSAIDs. Follow clinically. Obesity. Lose weight. Dietary precautions reviewed. Osteoarthritis. Currently, asymptomatic. Medication/over -the-counter medications reviewed. Lose weight and exercise. Osteopenia. Patient will have bone density evaluation. Continue calcium and vitamin D supplementation. Weightbearing exercises. [email or web address] Not available 12/08/2013 10:37:06 12/23/2013 12/23/2013 See history of present illness. Recent colonoscopy was normal. Abdominal pain is still persistent however, not getting worse. Patient still describes, right lower quadrant /low abdominal pain. CT, abdomen pelvis was reviewed with the patient. Denies any constipation or diarrhea. No dysuria. She does have chronic low back pain./scoliosis. I have discussed the possibility of this pain, extending, ProMod of the right hip or low back pain. History of scoliosis. Workup so far has been negative. She does not wish to pursue any further radiological workup. I have advised patient to continue to monitor and report any changes. Danger signs and symptoms were reviewed. Conjunctivitis. Patient did have a foreign object type sensation. This has been alleviated with eye wash. Fluorescein test was negative. She does have injected conjunctiva. We will start her on eyedrops./antibi otics. Patient is advised to followup with ophthalmology if any further symptoms or nonresolution of symptoms. [email or web address] Not available 12/23/2013 14:29:59 Plan of Treatment Reminders Order Date Submit Date Provider Last Modified By Organization Details Last Modified Time Details Appointments None recorde d. Lab compreh ensive metabol ic panel - STAT 2013 014 MARIAELENA Not available 4 16:42:16 CBC w/diff - STAT 2013 014 MARIAELENA Not available 4 16:42:16 urinaly sis microsc opic - STAT 2013 014 [email or web address] Not available 4 16:43:41 Referral gastroe nterolo gist referra l - Screeni ng Colonsc opy 2013 014 MARIAELENA Stewart Davidson MD ([facility]), [address], [address], [place], [address], 4 14:05:51 Procedures None recorde d. Surgeries None recorde d. Imaging XR, knee, 4 or more view 2022 023 [email or web address] In-Office Order, Internal Use Only DO Not Attach Compendium DO Not Attach Compendium, Do Not Delete/merge, [id number] 3 12:11:12 bone density study 2013 014 sshariff Not available 4 10:33:48 CT, abdomen and pelvis 2013 014 MARIAELENA Not available 4 18:49:02 Medication Orders Marcain e 0.5 % (5 mg/mL) injecti on solutio n 2022 023 [email or web address] Not available 3 12:57:10 triamci nolone acetoni de 40 mg/mL suspens ion for injecti on 2022 023 [email or web address] Not available 3 12:57:10 ciprofl oxacin 0.3 % eye drops 2013 014 sshariff [facility] #[id number], [address] [place], [address], 4 14:24:29 Patient TargetsNo targets recorded. Patient Instructions Encounter Date Encounter Id Patient Instructions Last Modified By Organization Details Last Modified Time 10/28/2013 [id number] Pt encouraged to consume a diet low in carbs, fat and calories. Encouraged to participate in non-weight bearing/aerobic exercise at least 30 minutes/day x 5 days/week. Encouraged to avoid tobacco products and consume alcohol in moderation. Encouraged to balance work with pleasure. [email or web address] Not available 12/08/2013 10:36:06 12/23/2013 [id number] Pt encouraged to consume a diet low in carbs, fat and calories. Encouraged to participate in non-weight bearing/aerobic exercise at least 30 minutes/day x 5 days/week. Encouraged to avoid tobacco products and consume alcohol in moderation. Encouraged to balance work with pleasure. [email or web address] Not available 12/23/2013 14:25:47 11/11/2022 [id number] I discussed the therapeutic options with the patient. We went over X-rays. I discussed non-op versus operative treatment. We will treat non-op for now. We proceeded with a cortisone injection of the right knee. Patient was given a set of home exercises. Patient is to rest ice and elevate. The patient may take jztz-cdb-rialedr medication for pain control. Instructed activity modification. Recommend glucosamine/chond roitin and turmeric. Recommend low impact activities. The patient will follow up in 4 weeks if she still has pain. [email or web address] Not available 11/11/2022 12:10:46 Reason for Referral Screening Colonscopy Referring Physician: Flip Courtney, Family Medicine, Encounter Date: 10/28/2013 Results Created Date Observation Date Name Description Value Unit Range Abnormal Flag Note LastModifiedBy Organization Detail LastModifiedTime 08/16/20 15 08/16/2015 CBC w/ auto diff WBC 7.0 K/uL 3.6-11 .2 Not Available [facility] (Lab/Imaging) [address] [place], [address], 08/16/2015 13:45:31 08/16/20 15 08/16/2015 CBC w/ auto diff RBC 4.30 M/uL 3.63-4 .92 Not Available [facility] (Lab/Imaging) [address] [place], [address], 08/16/2015 13:45:31 08/16/20 15 08/16/2015 CBC w/ auto diff HGB 13.0 g/dL 10.9-1 4.3 Not Available [facility] (Lab/Imaging) [address] [place], [address], 08/16/2015 13:45:31 08/16/20 15 08/16/2015 CBC w/ auto diff HCT 40.5 % 31.2-4 1.9 Not Available [facility] (Lab/Imaging) [address] [place], [address], 08/16/2015 13:45:31 08/16/20 15 08/16/2015 CBC w/ auto diff MCV 94.0 fL 78.5-1 00.5 Not Available [facility] (Lab/Imaging) [address] [place], [address], 08/16/2015 13:45:31 08/16/20 15 08/16/2015 CBC w/ auto diff MCH 30.1 pg 24.5-3 4.5 Not Available [facility] (Lab/Imaging) [address] [place], [address], 08/16/2015 13:45:31 08/16/20 15 08/16/2015 CBC w/ auto diff MCHC 32.0 g/dL 32.5-3 5.8 low Not Available [facility] (Lab/Imaging) [address] [place], [address], 08/16/2015 13:45:31 08/16/20 15 08/16/2015 CBC w/ auto diff rdwcv 13.7 % 12.3-1 7.0 Not Available [facility] (Lab/Imaging) [address] [place], [address], 08/16/2015 13:45:31 08/16/20 15 08/16/2015 CBC w/ auto diff platelet count 192 K/uL 140-40 0 Not Available [facility] (Lab/Imaging) [address] [place], [address], 08/16/2015 13:45:31 08/16/20 15 08/16/2015 CBC w/ auto diff MPV 11.0 fL 7.5-11 .2 Not Available [facility] (Lab/Imaging) [address] [place], [address], 08/16/2015 13:45:31 08/16/20 15 08/16/2015 CBC w/ auto diff neutrophils 63.9 % Not Available [facility] (Lab/Imaging) [address] [place], [address], 08/16/2015 13:45:31 08/16/20 15 08/16/2015 CBC w/ auto diff lymphocytes 24.1 % Not Available [facility] (Lab/Imaging) [address] [place], [address], 08/16/2015 13:45:31 08/16/20 15 08/16/2015 CBC w/ auto diff monocytes 7.7 % Not Available [facility] (Lab/Imaging) [address] [place], [address], 08/16/2015 13:45:31 08/16/20 15 08/16/2015 CBC w/ auto diff eosinophils 3.2 % Not Available [facility] (Lab/Imaging) [address] [place], [address], 08/16/2015 13:45:31 08/16/20 15 08/16/2015 CBC w/ auto diff basophils 1.1 % Not Available [facility] (Lab/Imaging) [address] [place], [address], 08/16/2015 13:45:31 08/16/20 15 08/16/2015 CBC w/ auto diff absolute neutrophils 4.40 K/uL 1.80-7 .80 Not Available [facility] (Lab/Imaging) [address] [place], [address], 08/16/2015 13:45:31 08/16/20 15 08/16/2015 CBC w/ auto diff absolute lymphocytes 1.70 K/uL 1.00-3 .00 Not Available [facility] (Lab/Imaging) [address] [place], [address], 08/16/2015 13:45:31 08/16/20 15 08/16/2015 CBC w/ auto diff absolute monocytes 0.50 K/uL 0.30-1 .00 Not Available [facility] (Lab/Imaging) [address] [place], [address], 08/16/2015 13:45:31 08/16/20 15 08/16/2015 CBC w/ auto diff absolute eosinophils 0.20 K/uL 0.00-0 .50 Not Available [facility] (Lab/Imaging) [address] [place], [address], 08/16/2015 13:45:31 08/16/20 15 08/16/2015 CBC w/ auto diff absolute basophils 0.10 K/uL 0.00-0 .10 [facility] [address] [place] [address] Raul Luther M.D. Lab Direc anthony ANDERSON NT: BRENDON Cerna [address] LOC: [facility],, BILL# : [id number] [phone] SEX: F : 07[birth year] ORDER ED BY: ROSALIND ONTIVEROS ORDER ED : 08/16 11:17 COLLE CTED: 08/16 11:18 ORDER : [id number] BETH GONSALO : 08/16 13:37 ----- ----- ----- ----- ----- ----- ----- ----- ----- ----- ----- ----- ----- ----- ----- ---- TEST NAME RESUL T UNITS RANGE S ABN FLAG WBC 7.0 K/uL 3.6-1 1.2 RBC 4.30 M/uL 3.63- 4.92 HGB 13.0 g/dL 10.9- 14.3 HCT 40.5 % 31.2- 41.9 MCV 94.0 fL 78.5- 100.5 MCH 30.1 pg 24.5- 34.5 MCHC 32.0 g/dL 32.5- 35.8 L RDWCV 13.7 % 12.3- 17.0 Plate let Count 192 K/uL 140-4 00 MPV 11.0 fL 7.5-1 1.2 Neutr ophil s 63.9 % Lymph ocyte s 24.1 % Monoc ytes 7.7 % Eosin ophil s 3.2 % Basop hils 1.1 % Absol mabel Neutr ophil s 4.40 K/uL 1.80- 7.80 Absol mabel Lymph ocyte s 1.70 K/uL 1.00- 3.00 Absol mabel Monoc ytes 0.50 K/uL 0.30- 1.00 Absol mabel Eosin ophil s 0.20 K/uL 0.00- 0.50 Absol mabel Basop hils 0.10 K/uL 0.00- 0.10 ----- ----- ----- ----- ----- ----- ----- ----- ----- ----- ----- ----- ----- ----- ----- -- Not Available [facility] (Lab/Imaging) [address] [place], [address], 08/16/2015 13:45:31 08/16/20 15 08/16/2015 BMP, serum or plasm a sodium 142 mmol/ L 136-14 5 Not Available [facility] (Lab/Imaging) [address] [place], [address], 08/16/2015 14:09:50 08/16/20 15 08/16/2015 BMP, serum or plasm a potassium 4.0 mmol/ L 3.6-5. 1 Not Available [facility] (Lab/Imaging) [address] [place], [address], 08/16/2015 14:09:50 08/16/20 15 08/16/2015 BMP, serum or plasm a chloride 110 mmol/ L 98-110 Not Available [facility] (Lab/Imaging) [address] [place], [address], 08/16/2015 14:09:50 08/16/20 15 08/16/2015 BMP, serum or plasm a CO2 26 mmol/ L 22-32 Not Available [facility] (Lab/Imaging) [address] [place], [address], 08/16/2015 14:09:50 08/16/20 15 08/16/2015 BMP, serum or plasm a anion gap 6.0 5.0-15 .0 Not Available [facility] (Lab/Imaging) [address] [place], [address], 08/16/2015 14:09:50 08/16/20 15 08/16/2015 BMP, serum or plasm a glucose 109 mg/dL 65-99 high Not Available [facility] (Lab/Imaging) [address] [place], [address], 08/16/2015 14:09:50 08/16/20 15 08/16/2015 BMP, serum or plasm a BUN 11 mg/dL 7-18 Not Available [facility] (Lab/Imaging) [address] [place], [address], 08/16/2015 14:09:50 08/16/20 15 08/16/2015 BMP, serum or plasm a creatinine 0.7 mg/dL 0.6-1. 3 Not Available [facility] (Lab/Imaging) [address] [place], [address], 08/16/2015 14:09:50 08/16/20 15 08/16/2015 BMP, serum or plasm a BUN/creatine ratio 15.7 8.0-20 .0 Not Available [facility] (Lab/Imaging) [address] [place], [address], 08/16/2015 14:09:50 08/16/20 15 08/16/2015 BMP, serum or plasm a estimated GFR >60.0 mL/mi n/1.7 3sq_m >60 * *Leila mated GFR is used to detec t Renal Failu re. Leslie l Range Value s have not been estab lishe d. Chron ic Kidne y Disea se = < 60 ml/mi n/1.7 3sq.m Kidne y Failu re = < 15 ml/mi n/1.7 3sq.m If patie nt is Afric an Ameri can, multi ply resul t by 1.21 to calcu late EGFR. Not Available [facility] (Lab/Imaging) [address] [place], [address], 08/16/2015 14:09:50 08/16/20 15 08/16/2015 BMP, serum or plasm a calcium 9.0 mg/dL 8.5-10 .1 [facility] [address] [place] , [place] [address] Raul Luther M.D. Lab Direc tor PATIE NT: BRENDON CAMPBELL B [address] LOC: [facility],, BILL# : [id number] [phone] SEX: F : 07[birth year]11 ORDER ED BY: ROSALIND ONTIVEROS ORDER ED : 08/16 11:17 COLLE CTED: 08/16 11:18 ORDER : [id number] BETH GONSALO : 08/16 13:36 ----- ----- ----- ----- ----- ----- ----- ----- ----- ----- ----- ----- ----- ----- ----- ---- TEST NAME RESUL T UNITS RANGE S ABN FLAG Sodiu m 142 mmol/ L 136-1 45 Potas sium 4.0 mmol/ L 3.6-5 .1 Chlor mushtaq 110 mmol/ L 98-11 0 CO2 26 mmol/ L 22-32 Anion Gap 6.0 5.0-1 5.0 Gluco se 109 mg/dL 65-99 H BUN 11 mg/dL 7-18 Creat inine 0.7 mg/dL 0.6-1 .3 BUN/C reati ne Ratio 15.7 8.0-2 0.0 Estim ated GFR >60.0 ml/mi n/1.7 3sq >60 * *Leila mated GFR is used to detec t Renal Failu re. Leslie l Range Value s have not been estab lishe d. Chron ic Kidne y Disea se = < 60 ml/mi n/1.7 3sq.m Kidne y Failu re = < 15 ml/mi n/1.7 3sq.m If patie nt is Afric an Ameri can, multi ply resul t by 1.21 to calcu late EGFR. Calci um 9.0 mg/dL 8.5-1 0.1 ----- ----- ----- ----- ----- ----- ----- ----- ----- ----- ----- ----- ----- ----- ----- -- Not Available [facility] (Lab/Imaging) [address], [place], [address], 08/16/2015 14:09:50 08/16/20 15 08/16/2015 amyla se, serum or plasm a amylase 46 U/L 25-115 [facility] [address] [place] [place] , [place] [address] Raul Luther M.D. Lab Direc [facility] NT: [place] [address] LOC: [facility],, BILL# : [id number] SEX: F : 07/11 ORDER ED BY: ROSALIND ONTIVEROS ORDER ED : 08/16 11:17 COLLE CTED: 08/16 11:18 ORDER : [id number] BETH GONSALO : 08/16 13:36 ----- ----- ----- ----- ----- ----- ----- ----- ----- ----- ----- ----- ----- ----- ----- ---- TEST NAME RESUL T UNITS RANGE S ABN FLAG Amyla se 46 U/L 25-11 5 ----- ----- ----- ----- ----- ----- ----- ----- ----- ----- ----- ----- ----- ----- ----- -- Not Available [facility] (Lab/Imaging) [address] [place], [address], 08/16/2015 14:09:52 08/16/20 15 08/16/2015 lipas e, serum or plasm a lipase 126 U/L 73-393 [facility] [address] [place] , [facility] [place] [address] Raul Luther [facility].D. [facility]: BRENDON JANGKELLE CAMPBELL B [address] LOC: [facility], BILL# : [phone] SEX: F : 07/11 ORDER ED BY: ROSALIND ONTIVEROS ORDER ED : 08/16 11:17 CAROL CTED: 08/16 11:18 ORDER : [id number] BETH GONSALO : 08/16 13:36 ----- ----- ----- ----- ----- ----- ----- ----- ----- ----- ----- ----- ----- ----- ----- ---- TEST NAME RESUL T UNITS RANGE S ABN FLAG Lipas e 126 U/L 73-39 3 ----- ----- ----- ----- ----- ----- ----- ----- ----- ----- ----- ----- ----- ----- ----- -- Not Available [facility] (Lab/Imaging) [address] [place], [address], 08/16/2015 14:09:53 08/16/20 15 08/16/2015 hepat ic funct ion panel , serum protein 7.2 g/dL 6.4-8. 2 Not Available [facility] (Lab/Imaging) [address] [place], [address], 08/16/2015 14:11:27 08/16/20 15 08/16/2015 hepat ic funct ion panel , serum albumin 4.0 g/dL 3.4-5. 0 Not Available [facility] (Lab/Imaging) [address] [place], [address], 08/16/2015 14:11:27 08/16/20 15 08/16/2015 hepat ic funct ion panel , serum total bilirubin 0.4 mg/dL 0.2-1. 0 Not Available [facility] (Lab/Imaging) [address] [place], [address], 08/16/2015 14:11:27 08/16/20 15 08/16/2015 hepat ic funct ion panel , serum direct bilirubin 0.1 mg/dL 0.0-0. 2 Not Available [facility] (Lab/Imaging) [address] [place], [address], 08/16/2015 14:11:27 08/16/20 15 08/16/2015 hepat ic funct ion panel , serum indirect bilirubin 0.3 mg/dL 0.0-1. 1 Not Available [facility] (Lab/Imaging) [address] [place], [address], 08/16/2015 14:11:27 08/16/20 15 08/16/2015 hepat ic funct ion panel , serum alkaline phosphatase 82 U/L 45-117 Not Available [facility] (Lab/Imaging) [address] [place], [address], 08/16/2015 14:11:27 08/16/20 15 08/16/2015 hepat ic funct ion panel , serum AST (SGOT) 21 U/L 15-37 Not Available [facility] (Lab/Imaging) [address] [place], [address], 08/16/2015 14:11:27 08/16/20 15 08/16/2015 hepat ic funct ion panel , serum ALT (SGPT) 40 U/L 12-78 [facility] [address] [place] , [place] [address] Raul Luther M.D. Lab Direc anthony ANDERSON NT: BRENDON Cerna [address] LOC: JILLIANBILL# : [id number] [phone] SEX: F : 07/11 ORDER ED BY: ROSALIND ONTIVEROS ORDER ED : 08/16 11:17 COLLE CTED: 08/16 11:18 ORDER : [id number] RECEI GONSALO : 08/16 13:36 ----- ----- ----- ----- ----- ----- ----- ----- ----- ----- ----- ----- ----- ----- ----- ---- TEST NAME RESUL T UNITS RANGE S ABN FLAG Prote in 7.2 g/dL 6.4-8 .2 Album in 4.0 g/dL 3.4-5 .0 Total Bilir ubin 0.4 mg/dL 0.2-1 .0 Direc t Bilir ubin 0.1 mg/dL 0.0-0 .2 Indir ect Bilir ubin 0.3 mg/dL 0.0-1 .1 Alkal ine Phosp hatas e 82 U/L 45-11 7 AST (SGOT ) 21 U/L 15-37 ALT (SGPT ) 40 U/L 12-78 ----- ----- ----- ----- ----- ----- ----- ----- ----- ----- ----- ----- ----- ----- ----- -- Not Available [facility] (Lab/Imaging) [address], [place], [address], 08/16/2015 14:11:27 10/19/19 14 10/19/2013 CT, abdom en and pelvi s No observ ation record ed. [email or web address] [facility] ([facility] [address] [facility], [place], [address], 10/21/2013 09:33:51 11/12/19 14 11/03/2013 imagi ng/giovana lauren resul t No observ ation record ed. [email or web address] Not Available 2013 10:33:48 11/11/19 23 XR, knee, 4 or more view No observ ation record ed. [email or web address] In-Office Order Internal Use Only DO Not Attach Compendium DO Not Attach Compendium, Do Not Delete/merge, [id number] 11/11/2022 11:43:58 Result Notes None recorded. Problems Name Problem SNOMED Code Status Onset Date Resolution Date Notes Provider Name and Address Organization Details Recorded Time Abdominal pain [id number] Karen Courtney MD [address], [place], [address], [address] 4 10:37:06 Osteoarthritis [id number] Karen Courtney MD [address], [place], [address], [address] 4 14:29:59 Obesity [id number] Karen Courtney MD [address], [place], [address], [address] 4 14:24:29 Low back pain [id number] Karen Courtney MD [address], [place], [address], [address] 4 14:29:59 Right lower quadrant pain [id number] Karen Courtney MD [address], [place], [address], [facility] - [address] 4 14:29:59 Osteopenia [id number] Karen Courtney MD [address], [place], [address], [address] 4 14:24:28 Scoliosis deformity of spine [id number] Karen Courtney MD [address], [place], [address], [address] 4 14:29:59 Conjunctivitis [id number] Karen Courtney MD [address], [place], [address], [address] 4 14:29:59 Problem Notes None recorded. Procedures Surgical History Date Name Laterality Status Provider Name and Address Organization Details Recorded Time 11/11/19 23 [facility] Knee TN RIGHT completed Dawn Tineo DO [address] 11/11/2022 12:09:13 12/24/19 14 Fluorescein eye exam completed Flip Courtney MD [address] [facility],[address] [facility], [place], [address], [address] 12/23/2013 14:24:29 10/13/19 10 Knee Surgery completed Flip Courtney MD [address] [facility],[address] [facility], [place], [address], [address] 10/28/2013 10:24:14 10/13/18 83 Tubal Ligation completed Germaine Ringle[address] 12/23/2013 13:38:04 10/13/18 80 Cost Coordinator Surgery completed Flip Courtney MD [address] [facility],[address], [place], [address], [address] 10/28/2013 10:24:14 Tonsillectomy and/or Adenoidectomy completed Arina Patel [address] 10/19/2013 11:24:30 Imaging Results Imaging Date Name Status LastModified by Organiz ation Details LastModified Time 10/19/2013 CT, abdomen and pelvis completed [email or web address] [facility] ([facility]) [address] [place], [address], 10/21/2013 09:33:51 11/03/2013 imaging/diag nostic result completed [email or web address] Information not available 12/08/2013 10:33:48 11/11/2022 XR, knee, 4 or more view completed [email or web address] In-Office Order Internal Use Only DO Not Attach Compendium DO Not Attach Compendium, Do Not Delete/merge, [id number] 11/11/2022 11:43:58 Procedure Notes None recorded. Medical Equipment None Reported. Allergies No known drug allergies Medications Name Sig Start Date Stop Date Status Note LastModified by Organization Details LastModified Time atorvastati n 20 mg tablet active Not Available Not Available Not Available hydrocodone 5 mg-acetamin ophen 325 mg tablet TAKE 1 TABLET BY MOUTH THREE TIMES DAILY FOR 3 DAYS NEEDED FOR PAIN active Not Available Not Available No t Available sucralfate 1 gram tablet TAKE 1 TABLET BY MOUTH THREE TIMES DAILY active Not Available Not Available No t Available prednisone 20 mg tablet TAKE 2 TABLETS BY MOUTH DAILY WITH FOOD OR MILK active Not Available Not Available No t Available metronidazo le 500 mg tablet TAKE 1 TABLET BY MOUTH TWICE DAILY FOR 6 DAYS active Not Available Not Available No t Available Celebrex 200 mg capsule TAKE ONE CAPSULE BY MOUTH EVERY DAY, as needed active Not Available Not Available No t Available levothyroxi ne 100 mcg tablet TAKE 1 TABLET BY MOUTH EVERY DAY active Not Available Not Available No t Available levothyroxi ne 88 mcg tablet TAKE 1 TABLET BY MOUTH DAILY 11/15 completed Not Available Not Available Not Available Marcaine 0.5 % (5 mg/mL) injection solution Take 5 mL by injection route. 2022 active Not Available Not Available Not Avai lable dicyclomine 20 mg tablet active Not Available Not Available Not Available ciprofloxac in 0.3 % eye drops Instill 2 drops every 4 hours by ophthalmi c route as directed for 10 days. 01/02 completed Not Available Not Available Not Available amitriptyli ne 10 mg tablet TAKE 1 TABLET BY MOUTH AT BEDTIME active Not Available Not Available No t Available triamcinolo ne acetonide 40 mg/mL suspension for injection Take 1 mL by injection route. 2022 active Not Available Not Available Not Avai lable hyoscyamine sulfate 0.125 mg tablet TAKE 1 TABLET EVERY 6 HOURS NEEDED FOR ABDOMINAL PAIN active Not Available Not Available No t Available hydrocodone 5 mg-acetamin ophen 500 mg tablet TAKE 1 TO 2 TABLETS BY MOUTH EVERY 4 TO 6 HOURS NEEDED 11/15 completed Not Available Not Available Not Available halobetasol propionate 0.05 % topical cream APPLY TO AFFECTED AREA TWICE A DAY NEEDED active Not Available Not Available No t Available metoprolol succinate ER 25 mg tablet,exte nded release 24 hr active Not Available Not Available Not Available ondansetron 4 mg disintegrat ing tablet DISSOLVE 1 TABLET ON THE TONGUE EVERY 8 HOURS FOR 48 HOURS NEEDED FOR NAUSEA OR VOMITING active Not Available Not Available No t Available Glucosamine 1 tablet daily 2013 active Not Available Not Available Not Avai lable Vitamin D3 1 capsle daily 2013 active Not Available Not Available Not Avai lable CoQ-10 active Not Available Not Availa ble Not Available Multi Vitamin active Not Available Not Available Not Available BinaxNOW COVID-19 Ag Self Test kit Use as Directed on the Package active Not Available Not Available No t Available Vitals Date Recorded Body weight Heart rate Respiratory rate Oxygen saturation Oxygen saturation in Arterial blood by Pulse oximetry Body temperature Body height Body mass index (BMI) Systolic blood pressure Diastolic blood pressure Provider Name and Address Organization Details Last Updated DateTime 4 12885.5 503 g 59 /min 48 /min 98 % 98 % 97.7 [degF] 165.1 cm 31.6 kg/m2 160 mm[Hg] 84 mm[Hg] Arina Patel [address] 4 11:26:38 Date Recorded Body weight Heart rate Respiratory rate Oxygen saturation Oxygen saturation in Arterial blood by Pulse oximetry Body temperature Body height Body mass index (BMI) Systolic blood pressure Diastolic blood pressure Provider Name and Address Organization Details Last Updated DateTime 4 76987.1 81178 g 65 /min 16 /min 98 % 98 % 98.5 [degF] 165.1 cm 34.1 kg/m2 140 mm[Hg] 82 mm[Hg] Melissa Kumar [address] 4 09:54:14 Date Recorded Body weight Heart rate Respiratory rate Oxygen saturation Oxygen saturation in Arterial blood by Pulse oximetry Body temperature Body height Body mass index (BMI) Systolic blood pressure Diastolic blood pressure Provider Name and Address Organization Details Last Updated DateTime 4 73044.8 4348 g 55 /min 18 /min 98 % 98 % 98.1 [degF] 165.1 cm 33.9 kg/m2 140 mm[Hg] 60 mm[Hg] Germaine Casiano [address] 4 13:38:04 Social History Question Answer Notes LastModified by Organizat ion Details LastModified Time Tobacco Smoking Status Former Smoker quit 28 years ago Melissa Kumar [address] 10/28/2013 09:54:14 What Is Your Level Of Caffeine Consumption? None Decaff Only Information not available 10/28/2013 What Type Of Diet Are You Following? REGULAR Information not available 10/28/2013 Live Alone Or With Others? With Others Information not available 12/23/2013 Marital Status Information not available 12/23/2013 How Many Children Do You Have? 3 Information not available 12/23/2013 How Many Years Have You Smoked Tobacco? 20 Information not available 10/19/2013 Sex: Unknown Functional Status Question Answer Note LastModified by Organizat ion Details LastModified Time What is your level of alcohol consumption? None Information not available 10/19/2013 What is your exercise level? Occasional Information not available 12/23/2013 Mental Status None recorded. Family History Relationship Description Onset Age of this Age Resolved Age Notes LastModified by Organization Details LastModified Time Mother Neoplasm of pancreas 73 Not available 2013 13:38:04 Father Coronary arterioscler osis 82 Not available 2013 13:38:04 Father Chronic obstructive pulmonary disease Not available 2013 13:38:04 Medical History Condition Response Arthritis Y Back Problems Y Chronic Pain Y Gynecological HistoryNo gynecological history recorded. Obstetrics History GPAL:G 0 P 0 0 0 0 Immunizations Vaccine Type Date Status Note Provider Nam e and Address Organization Details Recorded Time influenza nasal, unspecified formulation 10/13/2020 completed JOSE ROBERTO Wheat, [address] 11/15/2022 09:07:04 SARS-COV-2 (COVID-19) vaccine, UNSPECIFIED 12/06/2020 completed JOSE ROBERTO Wheat, [address] 11/15/2022 09:07:16 SARS-COV-2 (COVID-19) vaccine, UNSPECIFIED 12/15/2020 JOSE ROBERTO Rosen, [address] 11/15/2022 09:07:21 SARS-COV-2 (COVID-19) vaccine, UNSPECIFIED 08/06/2021 JSOE ROBERTO Rosen, [address] 11/15/2022 09:07:25 SARS-COV-2 (COVID-19) vaccine, UNSPECIFIED 02/11/2022 JOSE ROBERTO Rosen, [address] 11/15/2022 09:07:30 SARS-COV-2 (COVID-19) vaccine, UNSPECIFIED 08/15/2022 completed Magda Torres MA [place], [place] - [facility] [place] 11/15/2022 09:07:34 Past Encounters Encounter ID Performer Location Encounter Start Date Encounter Closed Date Diagnosis/Indication Diagnosis SNOMED-CT Code Diagnosis ICD10 Code Diagnosis Note [id number] [facility] [address] [place] [address] 10/19/2013 11:17:40 10/19/2013 14:11:23 Right lower quadrant pain 753429243 Labs are normal. Recommend imaging. We discussed the options of CT vs US. Will proceed with CT. Addendum:3 pm--CT was negative. Recommend continued observatio n and f/u with Dr Courtney later this week to establish care. We will make this appt for her. She may need additional evaluation if not improving. If she worsens at any point with fever, n/v, blood in stool or worsening pain, she should be seen again in urgent care or the ER. [id number] [facility] [address] [place] [address] 10/28/2013 09:33:15 10/28/2013 11:10:58 Abdominal pain 95312272 Low back pain 309327028 Obesity 154388827 Osteoarthritis 727050819 Right lowe r quadrant pain 809577872 Screening for cancer 90975038 Osteopenia 130319818 [id number] [facility] [address] [place] [address] 12/23/2013 13:08:27 12/23/2013 14:14:41 Conjunctivitis 4027979 Right lowe r quadrant pain 718905616 Osteoarthritis 088243993 Low back pain 483714670 Scoliosis deformity of spine 659840111 [id number] DO [facility] [place] [facility] [address] [place] [address] 11/11/2022 10:48:16 11/11/2022 11:58:18 Pain of right knee joint 1602834848 62105 M25.561 Osteoarthr itis of right knee joint 4468512946 69594 M17.11 Health Concerns Section Related Observation LastModified by Organization Detai ls LastModified Time None Recorded Concern Status LastModified by Organization Details LastModified Time None Recorded Advance Directives Directive None Recorded Payers Insurance Date Sequence Insurance Name Policy Number Policy Madsen Covered Member ID Madsen Member ID Guarantor Name 11/13/2022 2 [facility] [employer] F (INDEMNITY) [id number] Frantz Regalado [id number] Nicolette Cerna [facility] 11/11/2022 1 [place] [employer] [facility] [id number] Nicolette Eryn Swander 05/15/2024 1 [place] Nicolette B Swander [id number] Nicolette Eryn [place] 11/13/2022 [employer] [employer] - MEDICARE-[address] [facility] (MEDICARE) Nicoletteblake Regalado [id number] Nicoletteblake Regalado Notes Date Note Type Note Provider Name and Address Organization Details Recorded Time 10/19/2013 text/html Nicolette has abdominal pain. It has been ongoing for a week and is in the right lower quadrant. It comes and goes but is becoming more constant. No fever. No n/v/d. Having normal BM's. No blood in stool. No urinary symptoms. Postmenopausal. No vaginal bleeding or vaginal symptoms. No uri/cough. No sob. Eating fine. Pain is 5/10. Leny Braxton MD [address] [place] [address],[address], [place], [address], [facility] [place] 10/19/2013 15:02:05 11/11/2022 text/html 72 year old fema le c/o right knee pain.She had pain for the past year on and off. She did well with glucosamine/chondroi tin she states.The past 3 weeks it has increased due to a twisting injury.She has pain over the medial side of her knee.She has pain with ROM.She has pain with ambulation.History of left knee arthroscopyNo numbness/tingling. IMAGING REPORT DIAGNOSTIC TEST: Radiographs of the right knee DATE: 11/11/22 CLINICAL INDICATION: Knee pain COMPARISON: Any prior imaging within the [facility] system was reviewed. TECHNIQUE: AP, lateral, sunrise of right knee and AP standing of bilateral knees were reviewed. FINDINGS: Radiographs of the right knee revealed moderate osteoarthritic changes. Moderate joint space narrowing noted with bone on bone in medial compartment with weightbearing xray. No acute fracture noted. No obvious masses or lesions in the soft tissues. IMPRESSION: Radiographs of the right knee with moderate osteoarthritis DO candace [place], [place] - [facility] [place] 11/11/2022 12:11:09 OBGyn Episode No OBEpisode recorded.
--- OUTSIDE RECORDS SUMMARY | 2025-03-04 09:27 | XMS_ITS | Encounter Summary ---
Author Organization [facility] [email or web address] [facility] tem Address [id number] [address] [place] [address] Care Team Providers Care Superintendent Concrete Mixing Plant Name Role Phone Unavailable Primary Care Provider Unavailabl e Encounter Details Date Type Department Care Team (Late st Contact Info) Description 04/21/2023 Orders Only [facility] [address] [place] [address] Ref Prov, [place] [address] Social History Tobacco Use Types Packs/Day Years [...]
--- OUTSIDE RECORDS SUMMARY | 2025-03-04 09:27 | XMS_ITS | Encounter Summary ---
Author Organization [facility] Address [address] [place] [address] Care Team Providers Care Thread Machine Operator Name Role Phone Janina Castro MD Primary Care Provider [phone] Source Comments In the event this information is protected by the Federal Confidentiality of Alcohol and Drug AbusePatient Records regulations: The Federal rules restrict any use of the information to criminally investigate or prosecute any alcohol or drug abuse patient.[facility] Encounter Details Date Type Department Care Team (Late st Contact Info) Description 10/04/2019 Get Medical Advice [facility] [address] [place] [address] [place] [address] [facility] [address] [place] [address] RE: Visit Follow Up Question Social History [...] on filedocumented in this encounter Care Teams Thread Machine Operator Relationship Specialty Start Date End Date Janina Castro MD [address] [place] [address] PCP - General Family Medicine 07/17/17 documented as of this encounter
--- OUTSIDE RECORDS SUMMARY | 2025-03-04 09:27 | XMS_ITS | Encounter Summary ---
Author Organization [facility] Address [address] [place] [address] Phone Care Team Providers Care Veneer Stock Layer Name Role Phone Janina Castro MD Primary Care Provider [phone] Reason for Visit * Reason Onset Date Comments Lab Orders 02/24/2025 Encounter Details Date Type Department Care Team (Late st Contact Info) Description 02/24/[address] [facility] [address] [place] [address] Lynnette Crawley LPN Lab Orders [...] Info) Description 03/17/2025 8:00 AM EDT Appointment [place] [address] [place] [place] [address], [place] [address] 03/17/2025 8:30 AM EDT Appointment [place] [address] [place] [place] [address] 03/17/2025 9:00 AM EDT Appointment [place] [address] [facility] [place] [address] 03/17/2025 9:30 AM EDT Appointment [place] [address] [place] [address] 03/17/2025 9:45 AM EDT Appointment [place] [address] [place] [address] 02/16/2026 9:45 AM EDT Appointment [address] [place] [address] 03/01/2026 10:30 AM EDT Office Visit [address] [place] [address] Lul Rose, [facility] [facility], [address] [place] [address] Scheduled Orders Name Type Priority Associated Diagnoses [...] documented as of this encounter Care Teams Veneer Stock Layer Relationship Specialty Start Date End Date Janina Castro MD [address] [place] [address] PCP - General 04/03/21 documented as of this encounter
--- OUTSIDE RECORDS SUMMARY | 2025-03-04 09:27 | XMS_ITS | Encounter Summary ---
Author Organization [facility] Address [address] [place] [address] Phone Care Team Providers Care Transition Program Manager Name Role Phone Janina Castro MD Primary Care Provider [phone] Encounter Details Date Type Department Care Team [...] Info) Description 03/17/2025 8:00 AM EDT Appointment [address] [address] 03/17/2025 8:30 AM EDT Appointment [address] [address] 03/17/2025 9:00 AM EDT Appointment [address] [address] 03/17/2025 9:30 AM EDT Appointment [facility] 703 [facility] [address] [place] [address] 03/17/2025 9:45 AM EDT Appointment [facility] [address] [place] [address] [address] [place] [address] 02/16/2026 9:45 AM EDT Appointment [facility] [address] [facility] [address] [place] [address] 03/01/2026 10:30 AM EDT Office Visit [place] [address] [facility] 250 [place] [address] Lul Rose 703 [facility] 2, [address] [place] [address] documented as of this encounter Visit Diagnoses Not on filedocumented in this encounter Additional Health Concerns Assessment Noted Time A fall risk assessment has been complete d for the patient 02/25/2024 10:28 AM EDT documented as of this encounter Care Teams Transition Program Manager Relationship Specialty Start Date End Date Janina Castro MD [address] [place] [address] PCP - General 04/03/21 documented as of this encounter
--- OUTSIDE RECORDS SUMMARY | 2025-03-04 09:28 | XMS_ITS | Encounter Summary ---
Author Organization [facility] Address [address] [place] [address] Phone Care Team Providers Care Long Chain Dyeing Machine Operator Name Role Phone Janina Castro MD Primary Care Provider [phone] Encounter Details Date Type Department Care Team (Late st Contact Info) Description 04/25/2020 Orders Only [facility] [address] [place] [address] Conversion, Onbase Social History Tobacco Use Types [...] Info) Description 03/17/2025 8:00 AM EDT Appointment [address] [address] 03/17/2025 8:30 AM EDT Appointment [address] [address] 03/17/2025 9:00 AM EDT Appointment [address] [address] 03/17/2025 9:30 AM EDT Appointment [address] [address] 03/17/2025 9:45 AM EDT Appointment [facility] 703 [facility] [address] [place] [address] 02/16/2026 9:45 AM EDT Appointment [facility] [address] [facility] [address] [place] [address] 03/01/2026 10:30 AM EDT Office Visit [place] [address] [facility] 250 [place] [address] Lul Rose DO 703 [facility] [address], [address] [place] [address] Scheduled Orders Name Type Priority Associated Diagnoses Orde r Schedule OUTSIDE LAB SCAN Lab Ordered: 04/25/2020 documented as of this encounter Visit Diagnoses Not on filedocumented in this encounter Care Teams Long Chain Dyeing Machine Operator Relationship Specialty Start Date End Date Janina Castro MD [address] [place] [address] [place] [address] PCP - General 04/03/21 documented as of this encounter
--- OUTSIDE RECORDS SUMMARY | 2025-03-04 09:28 | XMS_ITS | Encounter Summary ---
Author Organization [facility] Address [address] [place] [address] Phone Care Team Providers Care Plant Attendant Name Role Phone Janina Castro MD Primary Care Provider [phone] Encounter Details Date Type Department Care Team (Late st Contact Info) Description 07/10/2023 Scanned Document [facility] [address] [place] [address] Scanning, Generic Provider Social History Tobacco Use [...] Info) Description 03/17/2025 8:00 AM EDT [facility] [place] [address] 03/17/2025 8:30 AM EDT Appointment [address] [address] 03/17/2025 9:00 AM EDT Appointment [address] [address] 03/17/2025 9:30 AM EDT Appointment [address] [address] 03/17/2025 9:45 AM EDT Appointment [place] [address] [facility] [address] [place] [address] 02/16/2026 9:45 AM EDT Appointment [place] [address] [facility] [address] [place] [address] 03/01/2026 10:30 AM EDT Office Visit [address] [place] [address] Lul Rose DO 703 [facility] 2, [address] [place] [address] documented as of this encounter Visit Diagnoses Not on filedocumented in this encounter Care Teams Plant Attendant Relationship Specialty Start Date End Date Janina Castro MD [address] [place] [address] [place] [address] PCP - General 04/03/21 documented as of this encounter
--- OUTSIDE RECORDS SUMMARY | 2025-03-04 09:28 | XMS_ITS | Encounter Summary ---
Author Organization [facility] Address [address] [place] [address] Phone Care Team Providers Care Managing Member Name Role Phone Janina Castro MD Primary Care Provider [phone] Encounter Details Date Type Department Care Team (Late st Contact Info) Description 06/11/2020 Orders Only [facility] [address] [place] [address] Conversion, Onbase Social History Tobacco Use Types [...] Info) Description 03/17/2025 8:00 AM EDT Appointment [address] [address] 03/17/2025 8:30 AM EDT Appointment [address] [address] 03/17/2025 9:00 AM EDT Appointment [address] [address] 03/17/2025 9:30 AM EDT Appointment [address] [address] 03/17/2025 9:45 AM EDT Appointment [facility] 703 [facility] [address] [place] [address] 02/16/2026 9:45 AM EDT Appointment [facility] 703 [facility] [address] [place] [address] 03/01/2026 10:30 AM EDT Office Visit [place] [address] [facility] [address] [place] [address] Lul Rose DO 703 [facility] [address], [address] [place] [address] Scheduled Orders Name Type Priority Associated Diagnoses Orde r Schedule OUTSIDE LAB SCAN Lab Ordered: 06/11/2020 documented as of this encounter Visit Diagnoses Not on filedocumented in this encounter Care Teams Managing Member Relationship Specialty Start Date End Date Janina Castro MD [address] [place] [address] [place] [address] PCP - General 04/03/21 documented as of this encounter
--- OUTSIDE RECORDS SUMMARY | 2025-03-04 09:28 | XMS_ITS | Encounter Summary ---
Author Organization [facility] Address [address] [place] [address] Phone Care Team Providers Care Histology Specialist Name Role Phone Janina Castro MD Primary Care Provider [phone] Encounter Details Date Type Department Care Team (Late st Contact Info) Description 02/28/2023 Orders Only [facility] LE[facility] [address] [place] [address] Conversion, Onbase Social History Tobacco Use Types [...] Info) Description 03/17/2025 8:00 AM EDT Appointment [address] [address] 03/17/2025 8:30 AM EDT Appointment [address] [address] 03/17/2025 9:00 AM EDT Appointment [address] [address] 03/17/2025 9:30 AM EDT Appointment [address] [address] 03/17/2025 9:45 AM EDT Appointment [facility] 703 [facility] [address] [place] [address] 02/16/2026 9:45 AM EDT Appointment [facility] 703 [facility] [address] [place] [address] 03/01/2026 10:30 AM EDT Office Visit [place] [address] [facility] [address] [place] [address] Lul Rose DO 703 [facility] [address], [address] [place] [address] Scheduled Orders Name Type Priority Associated Diagnoses Orde r Schedule OUTSIDE LAB SCAN Lab Ordered: 02/28/2023 documented as of this encounter Visit Diagnoses Not on filedocumented in this encounter Care Teams Histology Specialist Relationship Specialty Start Date End Date Janina Castro MD [address] [place] [address] PCP - General 04/03/21 documented as of this encounter
--- OUTSIDE RECORDS SUMMARY | 2025-03-04 09:28 | XMS_ITS | Encounter Summary ---
Author Organization [facility] Address [address] [place] [address] Phone Care Team Providers Care Litigation Assistant Name Role Phone Janina Castro MD Primary Care Provider [phone] Encounter Details Date Type Department Care Team (Late st Contact Info) Description 02/13/2021 Orders Only [facility] [address] [place] [address] Conversion, Onbase Social History Tobacco Use Types [...] Info) Description 03/17/2025 8:00 AM EDT Appointment [address] [address] 03/17/2025 8:30 AM EDT Appointment [address] [address] 03/17/2025 9:00 AM EDT Appointment [address] [address] 03/17/2025 9:30 AM EDT Appointment [address] [address] 03/17/2025 9:45 AM EDT Appointment [facility] 703 [facility] [address] [place] [address] 02/16/2026 9:45 AM EDT Appointment [facility] 703 [facility] [address] [place] [address] 03/01/2026 10:30 AM EDT Office Visit [place] [address] [facility] [address] [place] [address] Lul Rose DO 703 [facility] [address], [address] [place] [address] Scheduled Orders Name Type Priority Associated Diagnoses Orde r Schedule OUTSIDE LAB SCAN Lab Ordered: 02/13/2021 OUTSIDE LAB SCAN Lab Ordered: 02/13/2021 documented as of this encounter Visit Diagnoses Not on filedocumented in this encounter Care Teams Litigation Assistant Relationship Specialty Start Date End Date Janina Castro MD [address] [place] [address] [place] [address] PCP - General 04/03/21 documented as of this encounter
--- OUTSIDE RECORDS SUMMARY | 2025-03-04 09:28 | XMS_ITS | Encounter Summary ---
Author Organization [facility] Address [address] [place] [address] Phone Care Team Providers Care Quill Collector Name Role Phone Janina Castro MD Primary Care Provider [phone] Encounter Details Date Type Department Care Team (Late st Contact Info) Description 08/26/[address] [facility] [address] [place] [address] Conversion, Onbase Social History Tobacco Use Types [...] Info) Description 03/17/2025 8:00 AM EDT Appointment [address] [address] 03/17/2025 8:30 AM EDT Appointment [address] [address] 03/17/2025 9:00 AM EDT Appointment [address] [address] 03/17/2025 9:30 AM EDT Appointment [address] [address] 03/17/2025 9:45 AM EDT Appointment [facility] 703 [facility] [address] [place] [address] 02/16/2026 9:45 AM EDT Appointment [facility] 703 [facility] [address] [place] [address] 03/01/2026 10:30 AM EDT Office Visit [place] [address] [facility] 250 [place] [address] Lul Rose DO 703 [facility] [address], [address] [place] [address] Scheduled Orders Name Type Priority Associated Diagnoses Orde r Schedule OUTSIDE LAB SCAN Lab Ordered: 08/26/2019 OUTSIDE LAB SCAN Lab Ordered: 08/26/2019 documented as of this encounter Visit Diagnoses Not on filedocumented in this encounter Care Teams Quill Collector Relationship Specialty Start Date End Date Janina Castro MD [address] [place] [address] [place] [address] PCP - General 04/03/21 documented as of this encounter
--- NOTE | 2025-03-04 09:30 | ECG_ITS ---
The [facility] Test Date: 2025-03-04 Pat Name: GARTH OLGUIN Department: Room: - Gender: Female Card Hanger: : 1950 Requested By: [id number] Order Number: [id number] Reading MD: MAYKEL RENO M.D. Measurements Intervals Ezel Rate: 50 P: 74 PA: 192 QRS: 43 QRSD: 93 T: 63 QT: 449 QTc: 413 Interpretive Statements SINUS BRADYCARDIA NONSPECIFIC T-WAVE ABNORMALITY Abnormal ECG Compared to ECG 03/17/2021 04:29:37 No significant changes Electronically Signed On 03-05-2025 9:01:43 EDT by MAYKEL RENO M.D.
--- NOTE | 2025-03-04 09:47 | XR_ITS ---
The [address] [address] Patient Name: GARTH OLGUIN MRN: [id number] date: 1950 Sex: F Assigned Patient Location: [facility] Current Patient Location: [facility] Accession/Order Number: [id number] Exam Date: 03/04/2025 12:51 Report Date: 03/04/2025 12:53 At the request of: NON-STAFF PHYSICIAN MD Procedure: XR chest 2V XR chest 2V 03/04/2025 10:12 AM SIGNS AND SYMPTOMS: ^Preprocedural Cardiovascular Examination PROTOCOL: Frontal and lateral radiographs of the chest COMPARISON: 03/16/2021 FINDINGS: The trachea is midline. Atherosclerotic changes are present in the thoracic aorta. There is a hiatal hernia. The gastric bubble is in the lower mediastinum. The heart and mediastinal structures are within normal limits, otherwise. The lung parenchyma is clear. There is a dextro convex curvature of the thoracic spine with a levoconvex curvature of the lumbar spine. XR/XR chest 2V IMPRESSION: No acute cardiopulmonary pathology. There is redemonstration of a hiatal hernia. Impression dictated by: Nawaf Hernandez M.D. 03/04/2025 12:53 PM Dictation [facility] Electronically authenticated by: [id number] Y Date: 03/04/2025 12:53
== END 2025-03-04 09:25 | disposition home or self-care (01) ==
LOC: RAD 09:24
PROVIDERS: PCP Family Medicine
DX: Z01.810 Encounter for preprocedural cardiovascular examination (principal); Z01.818 Encounter for other preprocedural examination; Z22.322 Carrier or suspected carrier of Methicillin resistant Staphylococcus aureus
CPT/HCPCS: 71046; 93005

== ENCOUNTER 2025-03-28 09:52 | Outpatient (RCR) | payer MEDICARE, OTHER, SELFPAY | END 2025-04-27 13:04 | disposition home or self-care (01) | LOC: PT 09:52 | PROVIDERS: PCP Family Medicine; Visit Provider Orthopaedic Surgery | DX: M25.561 Pain in right knee (principal) | CPT/HCPCS: 97110; 97112; 97116; 97162; 97530 ==

== ENCOUNTER 2025-03-30 10:47 | Outpatient (OUT) | payer MEDICARE, OTHER, SELFPAY ==
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
--- OUTSIDE RECORDS SUMMARY | 2025-03-17 07:31 | XMS_ITS | Encounter Summary ---
Author Organization [facility] Address [address] [place] [address] Phone Care Team Providers Care Bioinformatics Analyst Name Role Phone Janina Castro MD Primary Care Provider [phone] Reason for Referral * Cardiac Stress Testing (Routine) - Authorized Specialty Diagnoses / Procedures Referred By Chevy moreland Referred To Contact Radiology Diagnoses Preop cardiovascular exam ASHD (arteriosclerotic heart disease) History of PTCA Myocardial infarction, unspecified [place] type, unspecified artery (Multi) Essential hypertension Procedures Nuclear Stress Test CHG MYOCARDIAL SPECT MULTIPLE STUDIES Lul Wang DO 703 [facility] 2, [address] [address] Phone: tel: fax: Referral ID Status Reason Start Date Expiration Date V isits Requested Visits Authorized [id number] Authorized 02/24/2025 02/24/2026 5 5 Reason for Visit * Cardiac Stress Testing (Routine) - Authorized Specialty Diagnoses / Procedures Referred By Chevy moreland Referred To Contact Radiology Diagnoses Preop cardiovascular exam ASHD (arteriosclerotic heart disease) History of PTCA Myocardial infarction, unspecified [place] type, unspecified artery (Multi) Essential hypertension Procedures Nuclear Stress Test CHG MYOCARDIAL SPECT MULTIPLE STUDIES Lul Wang DO 703 [facility] 2, [address] [address] Phone: tel: fax: Referral ID Status Reason Start Date Expiration Date V isits Requested Visits Authorized [id number] Authorized 02/24/2025 02/24/2026 5 5 Encounter Details Date Type Department Care Team (Latest Contact Info) Description 03/17/2025 7:31 AM EDT Hospital Encounter [facility] 703 [facility] [address] [place] [address] Preop cardiovascular exam; ASHD (arteriosclerotic heart disease); History of PTCA; Myocardial infarction, unspecified [place] type, unspecified artery (Multi); Essential hypertension Discharge Disposition: Home Social History Tobacco Use Types Packs/Day Years [...] suspected to have Coronavirus/COVID-19? No / Unsure 03/17/2025 7:31 AM EDT documented as of this encounter Medications at Time of Discharge acetaminophen (TylenoL) 325 mg tablet Take 1-2 tablets (325-650 mg) by mouth every 4 hours if needed. ascorbic acid, vitamin C, 500 mg capsule Take 1 capsule by mouth once daily. atorvastatin (Lipitor) 20 mg tablet Take 1 tablet (20 mg) by mouth. Mon - fri only busPIRone (Buspar) 5 mg tablet Take 1 tablet (5 mg) by mouth if needed (anxiety). Use as directed cholecalciferol (Vitamin D-3) 25 MCG (1000 UT) tablet Take 1 tablet (25 mcg) by mouth once daily. diclofenac (Voltaren) 75 mg EC tablet Take 1 tablet (75 mg) by mouth if needed (pain). Do not crush, chew, or split. dicyclomine (Bentyl) 20 mg tablet Take 1 tablet (20 mg) by mouth 4 times a day as needed. As directed glucosamine-chondr oitin 500-400 mg tablet Take 1 tablet by mouth early in the morning.. HALOBETASOL PROPIONATE TOP Use as directed levothyroxine (Synthroid, Levoxyl) 100 mcg tablet Take 1 tablet (100 mcg) by mouth every other day. levothyroxine (Synthroid, Levoxyl) 88 mcg tablet Take 1 tablet (88 mcg) by mouth every other day. metoprolol succinate XL (Toprol-XL) 25 mg 24 hr tabletIndications: Essential hypertension Take 1 tablet (25 mg) by mouth once daily. 90 tablet 3 04/12/2024 MULTIVITAMIN ORAL Take 1 tablet by mouth once daily. nitroglycerin (Nitrostat) 0.[address] 1 tablet (0.3 mg) under the tongue. omega 1-nmf-zbr-fish oil (Fish OiL) 1,000 mg (120 mg-180 mg) capsule Take 1 capsule (1,000 mg) by mouth once daily. TURMERIC ORAL Take 1 capsule by mouth once daily. xylitoL (XyliMelts) 550 mg muco-adhesive buccal tablet Take by mouth once daily. documented as of this encounter Plan of Treatment Upcoming Encounters Date Type Department Care Team (Late st Contact Info) Description 02/16/2026 9:45 AM EDT Appointment [place] [address] [place] [address] 03/01/2026 10:30 AM EDT Office Visit [address] [address] Lul Wang DO [address] [place] [address] 2, [facility] [address] [place] [address] documented as of this encounter Procedures Procedure Name Priority Date/Time Associated Diagnosis Comments STRESS TEST, REGADENOSON W MYOCARDIAL PERFUSION SPECT (MULTI STUDY) Routine 03/17/2025 10:13 AM EDT Preop cardiovascular exam ASHD (arteriosclerotic heart disease) History of PTCA Myocardial infarction, unspecified [place] type, unspecified artery (Multi) Essential hypertension documented in this encounter Results * STRESS TEST, REGADENOSON W MYOCARDIAL PERFUSION SPECT (MULTI STUDY) (03/17/2025 10:13 AM EDT) Anatomical Region Laterality Modality Nuclear Medicine 03/17/2025 4:41 PM EDT 03/17/2025 4:41 PM EDT Impressions 03/17/2025 4:40 PM EDT Normal Lexiscan Myoview cardiac perfusion stress test. No evidence of ischemia or myocardial infarction by perfusion imaging. Normal left ventricular systolic function, ejection fraction 61%. No previous studies are available for comparison. Signed by: Neha Roman 03/17/2025 4:40 PM Dictation workstation: [id number] Narrative 03/17/2025 4:40 PM EDT Interpreted By: Neha Roman and Giannuzzi Michael STUDY: MYOCARDIAL PERFUSION STRESS TEST WITH LEXISCAN Performing facility: [facility], [address] [place] [address], [address], [address] Provider: Sintia Wang DO, FACC PCP: Dr. Gloria Castro Supervising provider: Sintia Wang DO, FACC INDICATION: Signs/Symptoms:poc, cad, htn. ,Z01.810 Encounter for preprocedural cardiovascular examination,I25.10 Atherosclerotic heart disease of [place] coronary artery without angina pectoris,Z98.61 Coronary angioplasty status,I21.9 Acute myocardial infarction, unspecified,I10 Essential (primary) hypertension HISTORY: Gender: F; Age: 74 y/o ; Height: HT 162.6 cm cm; Weight: WT 78.019 kg kg. CAD; High Cholesterol; Previous [place];2017 Quit smoking 38 years ago. Cardiac catheterization on 2016. 2016 COMPARISON: No comparison. ACCESSION NUMBER(S): [id number] ORDERING CLINICIAN: LUL WANG TECHNIQUE: ONE DAY protocol. Stress injection: Date:03-17-25, 35.0 mCi of Myoview IV 20 seconds after rapid injection of Lexiscan. Rest injection: Date: 03-17-25, 10.7 mCi of Myoview IV at rest. The patient had a rapid injection of 0.4 mg of Lexiscan IV over 10 seconds. Imaging was performed by gated tomographic technique. Reason for Lexiscan: hip/knee pain STRESS TEST DATA: Resting heart rate was 48 BPM. Resting blood pressure was 128/82 mmHg. Peak blood pressure was 122/68 mmHg. Peak heart rate was 62 BPM. 50 mg Aminophylline given TEST TERMINATED DUE TO: Protocol completed FINDINGS: STRESS TEST RESULTS: Resting electrocardiogram revealed sinus bradycardia, septal myocardial infarction of undetermined age. There were no significant ischemic ECG changes or dysrhythmias. The patient did not have chest pains/symptoms during procedure. There was a normal recovery phase. IMAGING RESULTS: Image quality was good. Rest and stress tomographic images were reviewed and revealed normal perfusion without evidence of ischemia, myocardial infarction, or left ventricular dilatation with stress. Overall left ventricular systolic function appeared to be normal without regional wall motion abnormalities. Ejection fraction was 61%. TID is 1.03 and is normal. There was no evidence of attenuation artifact. Procedure Note Neha Roman MD - 03/17/2025 Interpreted By: Neha Roman and Giannuzzi Michael STUDY: MYOCARDIAL PERFUSION STRESS TEST WITH LEXISCAN Performing facility: [facility], [address] [place] [address], [address], [place] [id number] [facility] Provider: Sintia Wang DO, FACC PCP: Dr. Gloria Castro Supervising provider: Sintia Wang DO, FACC INDICATION: Signs/Symptoms:poc, cad, htn. ,Z01.810 Encounter for preprocedural cardiovascular examination,I25.10 Atherosclerotic heart disease of [place] coronary artery without angina pectoris,Z98.61 Coronary angioplasty status,I21.9 Acute myocardial infarction, unspecified,I10 Essential (primary) hypertension HISTORY: Gender: F; Age: 74 y/o ; Height: HT 162.6 cm cm; Weight: WT 78.019 kg kg. CAD; High Cholesterol; Previous [place];2016 Quit smoking 38 years ago. Cardiac catheterization on 2016 COMPARISON: No comparison. ACCESSION NUMBER(S): [id number] ORDERING CLINICIAN: LUL WANG TECHNIQUE: ONE DAY protocol. Stress injection: Date:03-17-25, 35.0 mCi of Myoview IV 20 seconds after rapid injection of Lexiscan. Rest injection: Date: 03-17-25, 10.7 mCi of Myoview IV at rest. The patient had a rapid injection of 0.4 mg of Lexiscan IV over 10 seconds. Imaging was performed by gated tomographic technique. Reason for Lexiscan: hip/knee pain STRESS TEST DATA: Resting heart rate was 48 BPM. Resting blood pressure was 128/82 mmHg. Peak blood pressure was 122/68 mmHg. Peak heart rate was 62 BPM. 50 mg Aminophylline given TEST TERMINATED DUE TO: Protocol completed FINDINGS: STRESS TEST RESULTS: Resting electrocardiogram revealed sinus bradycardia, septal myocardial infarction of undetermined age. There were no significant ischemic ECG changes or dysrhythmias. The patient did not have chest pains/symptoms during procedure. There was a normal recovery phase. IMAGING RESULTS: Image quality was good. Rest and stress tomographic images were reviewed and revealed normal perfusion without evidence of ischemia, myocardial infarction, or left ventricular dilatation with stress. Overall left ventricular systolic function appeared to be normal without regional wall motion abnormalities. Ejection fraction was 61%. TID is 1.03 and is normal. There was no evidence of attenuation artifact. IMPRESSION: Normal Lexiscan Myoview cardiac perfusion stress test. No evidence of ischemia or myocardial infarction by perfusion imaging. Normal left ventricular systolic function, ejection fraction 61%. No previous studies are available for comparison. Signed by: Neha Roman 03/17/2025 4:40 PM Dictation workstation: [id number] Lul Wang DO CV STRESS PROCEDURES Final Result documented in this encounter Visit Diagnoses Diagnosis Preop cardiovascular exam Pre-operative cardiovascular examination ASHD (arteriosclerotic heart disease) Coronary atherosclerosis of unspecified type of vessel, [place] or graft History of PTCA Postsurgical percutaneous transluminal coronary angioplasty status Myocardial infarction, unspecified [place] type, unspecified artery (Multi) Essential hypertension Unspecified essential hypertension documented in this encounter Administered Medications Inactive Administered Medications - up to 3 most recent administrations Medication Order MAR Action Action Date Dose Rate Site Tc-99m tetrofosmin (Myoview) injection 10 millicurie 10 millicurie, intravenous, Once in imaging, Starting on Tracy 03/17/25 at 0807, For 1 dose, Administer 45 to 90 minutes prior to imaging unless otherwise indicated. Given 03/17/2025 8:04 AM EDT 10.7 millicuries documented in this encounter Additional Health Concerns Assessment Noted Time A fall risk assessment has been complete d for the patient 02/25/2024 10:28 AM EDT documented as of this encounter Care Teams Bioinformatics Analyst Relationship Specialty Start Date End Date Janina Castro MD [address] [place] [address] PCP - General 04/03/21 documented as of this encounter
--- OUTSIDE RECORDS SUMMARY | 2025-03-17 07:32 | XMS_ITS | Encounter Summary ---
Author Organization [facility] Address [address] [place] [address] Phone Care Team Providers Care Licensed Mortician Name Role Phone Janina Castro MD Primary Care Provider [phone] Reason for Visit * Cardiac Stress Testing (Routine) - Authorized Specialty Diagnoses / Procedures Referred By Contac t Referred To Contact Radiology Diagnoses Preop cardiovascular exam ASHD (arteriosclerotic heart disease) History of PTCA Myocardial infarction, unspecified [place] type, unspecified artery (Multi) Essential hypertension Procedures Nuclear Stress Test CHG MYOCARDIAL SPECT MULTIPLE STUDIES Margi Wang DO 703 [facility] 2, [address] [address] Phone: tel: fax: Referral ID Status Reason Start Date Expiration Date V isits Requested Visits Authorized [id number] Authorized 02/24/2025 02/24/2026 5 5 Encounter Details Date Type Department Care Team (Latest Contact Info) Description 03/17/2025 7:32 AM EDT [facility] [place] [address] [place] [address] [place] [phone] Discharge Disposition: Home Social History Tobacco Use [...] Recorded In the last 10 days, have sabrina u been in contact with someone who [...] tablet (0.3 mg) under the tongue. omega 9-mpl-uuf-fish oil (Fish OiL) 1,000 mg (120 mg-180 [...] Info) Description 02/16/2026 9:45 AM EDT Appointment [facility] [address] [place] [phone] 03/01/2026 10:30 AM EDT Office Visit [facility] [address] [place] [phone] Margi Wang, [address] [place] [address] documented as of this encounter Procedures Procedure Name Priority Date/Time Associated Diagnosis Comments STRESS TEST, REGADENOSON W MYOCARDIAL PERFUSION SPECT (MULTI STUDY) Routine 03/17/2025 10:13 AM EDT Preop cardiovascular exam ASHD (arteriosclerotic heart disease) History of PTCA Myocardial infarction, unspecified [place] type, unspecified artery (Multi) Essential hypertension documented [...] Neha Roman 03/17/2025 4:40 PM Dictation workstation: [id number] Narrative 03/17/2025 4:40 PM EDT Interpreted By: Neha Roman, Kodi Sotelo STUDY: MYOCARDIAL PERFUSION STRESS TEST WITH LEXISCAN Performing facility: [facility], [facility], [address] [place] [address], [address], [place] [address] [facility] Provider: Sintia Wang DO, FACC PCP: Dr. Gloria Castro Supervising provider: Sintia Wang DO, FACC INDICATION: Signs/Symptoms:poc, cad, htn. ,Z01.810 Encounter for preprocedural cardiovascular examination,I25.10 Atherosclerotic heart disease of [place] coronary artery without angina pectoris,Z98.61 Coronary angioplasty status,I21.9 Acute myocardial infarction, unspecified,I10 Essential (primary) hypertension HISTORY: Gender: F; Age: 74 y/o ; Height: HT 162.6 cm cm; Weight: WT 78.019 kg kg. CAD; High Cholesterol; Previous [place];2017 Quit smoking 38 years ago. Cardiac catheterization on 2016 COMPARISON: No comparison. ACCESSION NUMBER(S): [id number] ORDERING CLINICIAN: MARGI WANG TECHNIQUE: ONE DAY protocol. Stress injection: [...] PERFUSION STRESS TEST WITH LEXISCAN Performing facility: [facility], [address] [facility], [address], [place] [address] [facility] Provider: Sintia Wang DO, FAC PCP: Dr. Gloria Castro Supervising provider: Sintia Wang DO, FACC INDICATION: Signs/Symptoms:poc, cad, htn. ,Z01.810 Encounter for preprocedural cardiovascular examination,I25.10 Atherosclerotic heart disease of [place] coronary artery without angina pectoris,Z98.61 Coronary angioplasty status,I21.9 Acute myocardial infarction, unspecified,I10 Essential (primary) hypertension HISTORY: Gender: F; Age: 74 y/o ; Height: HT 162.6 cm cm; Weight: WT 78.019 kg kg. CAD; High Cholesterol; Previous [place];2017 Quit smoking 38 years ago. Cardiac catheterization on 2016 COMPARISON: No comparison. ACCESSION NUMBER(S): [id number] ORDERING CLINICIAN: MARGI WANG TECHNIQUE: ONE DAY protocol. Stress injection: [...] Neha Roman 03/17/2025 4:40 PM Dictation workstation: [id number] Margi Wang DO CV STRESS PROCEDURES Final Result documented in this encounter Visit Diagnoses Not on filedocumented in this encounter Additional Health Concerns Assessment Noted Time A fall risk assessment has been complete d for the patient 02/25/2024 10:28 AM EDT documented as of this encounter Care Teams Licensed Mortician Relationship Specialty Start Date End Date Janina Castro MD [address] [place] [address] PCP - General 04/03/21 documented as of this encounter
--- OUTSIDE RECORDS SUMMARY | 2025-03-17 07:33 | XMS_ITS | Encounter Summary ---
Author Organization [facility] Address [address] [place] [address] Phone Care Team Providers Care Shade Classifier Name Role Phone Janina Csatro MD Primary Care Provider [phone] Reason for Visit * Cardiac Stress Testing (Routine) - Authorized Specialty Diagnoses / Procedures Referred By Contac t Referred To Contact Radiology Diagnoses Preop cardiovascular exam ASHD (arteriosclerotic heart disease) History of PTCA Myocardial infarction, unspecified [place] type, unspecified artery (Multi) Essential hypertension Procedures Nuclear Stress Test CHG MYOCARDIAL SPECT MULTIPLE STUDIES Lul Rose DO 703 [facility] 2, [address] [address] Phone: tel: fax: Referral ID Status Reason Start Date Expiration Date V isits Requested Visits Authorized [id number] Authorized 02/24/2025 02/24/2026 5 5 Encounter Details Date Type Department Care Team (Latest Contact Info) Description 03/17/2025 7:33 AM EDT - 03/17/2025 11:59 PM EDT Hospital Encounter [facility] [address] [place] [phone] Discharge Disposition: Home Social History Tobacco Use [...] mouth once daily. 90 tablet 3 04/12/2024 5 MULTIVITAMIN ORAL Take 1 tablet by mouth once daily. nitroglycerin (Nitrostat) 0.[address] 1 tablet (0.3 mg) under the tongue. omega 5-ccc-kvm-fish oil (Fish OiL) 1,000 mg (120 mg-180 [...] Info) Description 02/16/2026 9:45 AM EDT Appointment [facility] [address] [facility] [address] [place] [phone] 03/01/2026 10:30 AM EDT Office Visit [facility] [address] [facility] [address] [place] [phone] Lul Rose DO [facility]03 [facility], [address] [place] [address] documented as of this encounter Procedures Procedure Name Priority Date/Time Associated Diagnosis Comments STRESS TEST, REGADENOSON W MYOCARDIAL PERFUSION SPECT (MULTI STUDY) Routine 03/17/2025 10:13 AM EDT Preop cardiovascular exam ASHD (arteriosclerotic heart disease) History of PTCA Myocardial infarction, unspecified [place] type, unspecified artery (Multi) Essential hypertension documented in this encounter Visit Diagnoses Not on filedocumented in this encounter Administered Medications Inactive Administered Medications - up to 3 most recent administrations Medication Order MAR Action Action Date Dose Rate Site Tc-99m tetrofosmin (Myoview) injection 30 millicurie 30 millicurie, intravenous, Once in imaging, Starting on Tracy 03/17/25 at 0916, For 1 dose, Administer 45 to 90 minutes prior to imaging unless otherwise indicated. Given 03/17/2025 9:08 AM EDT 35 millicuries documented in this encounter Additional Health Concerns Assessment Noted Time A fall risk assessment has been complete d for the patient 02/25/2024 10:28 AM EDT documented as of this encounter Care Teams Shade Classifier Relationship Specialty Start Date End Date Janina Castro MD [address] [place] [address] [address] [place] [id number] PCP - General 04/03/21 documented as of this encounter
--- OUTSIDE RECORDS SUMMARY | 2025-03-17 07:33 | XMS_ITS | Encounter Summary ---
Author Organization [facility] Address [address] [place] [address] Phone Care Team Providers Care Latex Ribbon Machine Operator Name Role Phone Janina Castro MD Primary Care Provider [phone] Reason for Visit * Cardiac Stress Testing (Routine) - Authorized Specialty Diagnoses / Procedures Referred By Contac t Referred To Contact Radiology Diagnoses Preop cardiovascular exam ASHD (arteriosclerotic heart disease) History of PTCA Myocardial infarction, unspecified [place] type, unspecified artery (Multi) Essential hypertension Procedures Nuclear Stress Test CHG MYOCARDIAL SPECT MULTIPLE STUDIES Lul Rose DO 703 [facility] 2, [address] [address] Phone: tel: fax: Referral ID Status Reason Start Date Expiration Date V isits Requested Visits Authorized [id number] Authorized 02/24/2025 02/24/2026 5 5 Encounter Details Date Type Department Care Team (Latest Contact Info) Description 03/17/2025 7:33 AM EDT Hospital [facility] [place] [address] [place] [place] [phone] Discharge Disposition: Home Social History Tobacco Use [...] tablet (0.3 mg) under the tongue. omega 3-ldi-hmp-fish oil (Fish OiL) 1,000 mg (120 mg-180 [...] Info) Description 02/16/2026 9:45 AM EDT Appointment [facility] [address] [facility] [address] [place] [phone] 03/01/2026 10:30 AM EDT Office Visit [facility] [address] [facility] [address] [place] [phone] Lul Rose DO [address] [facility] [address] [place] [address] documented as of this encounter Procedures Procedure Name Priority Date/Time Associated Diagnosis Comments STRESS TEST, REGADENOSON W MYOCARDIAL PERFUSION SPECT (MULTI STUDY) Routine 03/17/2025 10:13 AM EDT Preop cardiovascular exam ASHD (arteriosclerotic heart disease) History of PTCA Myocardial infarction, unspecified [place] type, unspecified artery (Multi) Essential hypertension documented in this encounter Visit Diagnoses Not on filedocumented in this encounter Administered Medications Inactive Administered Medications - up to 3 most recent administrations Medication Order MAR Action Action Date Dose Rate Site aminophylline injection 50 mg 50 mg, intravenous, Administer over 1 Minutes, Once, On Tracy 03/17/25 at 1015, For 1 dose New Bag 03/17/2025 9:09 AM EDT 50 mg regadenoson (Lexiscan) injection 0.4 mg 0.4 mg, intravenous, Once, On Tracy 03/17/25 at 0830, For 1 dose Given 03/17/2025 9:07 AM EDT 0.4 mg documented in this encounter Additional Health Concerns Assessment Noted Time A fall risk assessment has been complete d for the patient 02/25/2024 10:28 AM EDT documented as of this encounter Care Teams Latex Ribbon Machine Operator Relationship Specialty Start Date End Date Janina Castro MD [address] [place] [address] [place] [address] PCP - General 04/03/21 documented as of this encounter
--- OUTSIDE RECORDS SUMMARY | 2025-03-17 07:33 | XMS_ITS | Encounter Summary ---
Author Organization [facility] Address [address] [place] [address] Phone Care Team Providers Care Food And Beverage Outlets Manager Name Role Phone Janina Castro MD Primary Care Provider [phone] Reason for Visit * Cardiac Stress Testing (Routine) - Authorized Specialty Diagnoses / Procedures Referred By Contac t Referred To Contact Radiology Diagnoses Preop cardiovascular exam ASHD (arteriosclerotic heart disease) History of PTCA Myocardial infarction, unspecified [place] type, unspecified artery (Multi) Essential hypertension Procedures Nuclear Stress Test CHG MYOCARDIAL SPECT MULTIPLE STUDIES Lul Wang DO [address] [facility] 2, [address] [address] Phone: tel: fax: Referral ID Status Reason Start Date Expiration Date V isits Requested Visits Authorized [id number] Authorized 02/24/2025 02/24/2026 5 5 Encounter Details Date Type Department Care Team (Latest Contact Info) Description 03/17/2025 7:33 AM EDT - 03/17/2025 11:59 PM EDT Hospital Encounter Mariela Rodriguezuche [address] [place] [phone] Discharge Disposition: Home Social History Tobacco Use [...] tablet (0.3 mg) under the tongue. omega 8-bjm-gid-fish oil (Fish OiL) 1,000 mg (120 mg-180 [...] Info) Description 02/16/2026 9:45 AM EDT Appointment [facility] [address] [facility] [address] [place] [phone] 03/01/2026 10:30 AM EDT Office Visit [facility] [address] [place] [id number] Lul Wang DO [address] [facility] [address], [address] [place] [address] documented as of this encounter Procedures Procedure [...] Neha Roman 03/17/2025 4:40 PM Dictation workstation: [id number] Narrative 03/17/2025 4:40 PM EDT Interpreted By: Neha Roman, and Can Sotelo STUDY: MYOCARDIAL PERFUSION STRESS TEST WITH LEXISCAN Performing facility: [facility], [address] [facility], [address], [place] [address] [facility] Provider: Sintia Wang DO, FACC PCP: Dr. Gloria Castro Supervising provider: Sintia Wang DO, FACC INDICATION: Signs/Symptoms:poc, cad, htn. ,Z01.810 Encounter for preprocedural cardiovascular examination,I25.10 Atherosclerotic heart disease of [place] coronary artery without angina pectoris,Z98.61 Coronary angioplasty status,I21.9 Acute myocardial infarction, unspecified,I10 Essential (primary) hypertension HISTORY: Gender: F; Age: 74 y/o ; Height: HT 162.6 cm cm; Weight: WT 78.019 kg kg. CAD; High Cholesterol; Previous TX;2017 Quit smoking 38 years ago. Cardiac catheterization on 2016 COMPARISON: No comparison. ACCESSION NUMBER(S): [id number] ORDERING CLINICIAN: LUL WANG TECHNIQUE: ONE DAY [...] PERFUSION STRESS TEST WITH LEXISCAN Performing facility: [facility], [address] [place] [address], [address], [place] [address] [facility] Provider: Sintia Wang DO, FACC PCP: Dr. Gloria Castro Supervising provider: Sintia Wang DO, FACC INDICATION: Signs/Symptoms:poc, cad, htn. ,Z01.810 Encounter for preprocedural cardiovascular examination,I25.10 Atherosclerotic heart disease of [place] coronary artery without angina pectoris,Z98.61 Coronary angioplasty status,I21.9 Acute myocardial infarction, unspecified,I10 Essential (primary) hypertension HISTORY: Gender: F; Age: 74 y/o ; Height: HT 162.6 cm cm; Weight: WT 78.019 kg kg. CAD; High Cholesterol; Previous [place];2017 Quit smoking 38 years ago. Cardiac catheterization on 2016 COMPARISON: No comparison. ACCESSION NUMBER(S): [id number] ORDERING CLINICIAN: LUL WANG TECHNIQUE: ONE DAY [...] Neha Roman 03/17/2025 4:40 PM Dictation workstation: [id number] Lul Wang DO CV STRESS PROCEDURES Final Result documented in this encounter Visit Diagnoses Not on filedocumented in this encounter Additional Health Concerns Assessment Noted Time A fall risk assessment has been complete d for the patient 02/25/2024 10:28 AM EDT documented as of this encounter Care Teams Food And Beverage Outlets Manager Relationship Specialty Start Date End Date Janina Castro MD [address] [place], [place] [id number] PCP - General 04/03/21 documented as of this encounter
--- OUTSIDE RECORDS SUMMARY | 2025-03-21 06:30 | XMS_ITS ---
Author Organization [facility] Address [address] [place] [address] Care Team Providers Care Bridge Repairer Name Role Phone Janina Castro M.D. Primary Care Provider Unavail able Jose Rodríguez Unavailable [phone] Self, Referral Unavailable Unavailable Jeramie Younger Unavailable [phone] Allergies No Known Allergies REASON FOR VISIT Right TKA @ [facility] 03/24/25 (RSS only) Patient has scoliosis and concerned, Right knee pain Medications Medication SIG (Take, Route, Fr equency, Duration) Notes Start Date End Date Status levothyroxine Active busPIRone Active nitroglycerin Active halobetasol topical Active dicyclomine Active Fish Oil Active Vitamin C Active Tylenol Active aspirin Active Vitamin D3 Active metoprolol Active Turmeric Active Glucosamine Chondroitin Active atorvastatin Active Social History Tobacco Use: Social History Observation Description Date Details (start date - stop date) Never Smoker NA - NA Smoking History Question Answer Notes Smoking Status Former Smoker AUDIT-C (Standard) Question Answer Notes Did you have a drink containing alcohol in the p ast year? No Tobacco Control (Standard) Question Answer Notes Tobacco use: Nonsmoker Vital Signs Height 5'1 in 03/21/2025 Weight 168 lbs 03/21/2025 BMI 31.74 03/21/2025 Encounters Encounter Location Date Provider Diagnosis [facility] [address] [place] [address] [place] [address] 03/21/2025 Jeramie Younger Primary osteoarthrit is of right knee M17.11 and Right knee pain M25.561 Assessments Encounter Date Diagnosis (ICD Code) Assessment Notes Treatment Notes Treatment Clinical Notes Section Notes 03/21/2025 Primary osteoarthritis of right knee (ICD-10 - M17.11) Right knee pain Right knee osteoarthritis 03/21/2025 Right knee pain (ICD-10 - M25.561) Right knee pain Right knee osteoarthritis 03/21/2025 Other Discussed nonoperative and operative interventions with patient. Patient continues to have significant right knee pain despite nonsurgical management including ice, anti-inflammator ies, activity modification, home exercise program, and injections. Pain is affecting her ADLs and quality of life. Radiographs demonstrate end-stage osteoarthritis of the right knee. Discussion was had with patient regarding right total knee arthroplasty to assist with pain relief. Discussed procedure, risk, benefits, and alternatives including but not limited to bleeding, infection, neurovascular injury, hardware failure, fracture, stiffness, VTE, continued pain, need for additional surgery, and continue ice and risk of anesthesia. Patient understood the risks and elected to proceed with surgery. Continue ice and anti-inflammator y as needed for pain. Activity modification as needed for pain. Activity as tolerated. All questions and concerns were addressed. Patient was in agreement with the treatment plan. This note will serve as clinical documentation for today's visit as well as H&P purposes. Right knee pain Right knee osteoarthritis Plan Of Treatment Treatment Notes Assessment Notes Other Discussed nonoperative and operative interventions with patient. Patient continues to have significant right knee pain despite nonsurgical management including ice, anti-inflammatories, activity modification, home exercise program, and injections. Pain is affecting her ADLs and quality of life. Radiographs demonstrate end-stage osteoarthritis of the right knee. Discussion was had with patient regarding right total knee arthroplasty to assist with pain relief. Discussed procedure, risk, benefits, and alternatives including but not limited to bleeding, infection, neurovascular injury, hardware failure, fracture, stiffness, VTE, continued pain, need for additional surgery, and continue ice and risk of anesthesia. Patient understood the risks and elected to proceed with surgery. Continue ice and anti-inflammatory as needed for pain. Activity modification as needed for pain. Activity as tolerated. All questions and concerns were addressed. Patient was in agreement with the treatment plan. This note will serve as clinical documentation for today's visit as well as H&P purposes. Next Appt Details Follow Up: 2 Weeks, Reason: Provider Name:Jeramie Younger, 04/11/2025 09:50:00 AM, [address] [facility] , [address] [address], [place], [address], Progress Notes * GARTH REGALADO BDOB:1949 (74 yo F)Acc No.[id number]:03/21/2025 Patient: GARTH CRAWFORD Provider: Aurea Younger MD :1950 A ge:74 Y S ex:Female Date:03/21/2025 Address:[address] [place], [place] [id number] Pcp:Janina Castro M.D. Subjective: * Chief Complaints: * 1 . Right TKA @ [facility] 03/24/25 (RSS only) Patient has scoliosis and concerned. 2. Right knee pain. * HPI: H PI: Patient is a 74-year-old female who presents for follow-up evaluation of right knee pain. Patient has been experiencing right knee pain for several years with significant worsening over the last year. Pain is sharp and severe in nature. Pain is located to the medial aspect of her knee. Pain is worse with standing and walking. Pain improves with rest. Denies feelings of instability. She does note some catching and clicking. Denies hip or groin pain. Denies numbness or tingling in her toes. Denies prior surgery on the knee. She has been taking Tylenol and ibuprofen with mild relief. She tried home exercises with minimal relief. She had injections with minimal relief. She also tried nerve ablations around her knee without relief. She ambulates without assistive device. Denies history of diabetes or DVT. * ROS: C onstitutional: Denies C hills. L oss of Appetite N o. A ppetite Change N o. D ifficulty Sleeping N o. U nexplained Weight Loss N o. M arked Fatigue N o. F ever N o. F atigue N o. W eight loss N o. H eadache?No. E ar/Nose/Throat: Difficulty Swallowing N o. L oss of Hearing N o.?Hoarseness N o. E ar pain N o. N ose bleed N o. E yes: Glasses/ Contacts Y es. C hange in Vision N o. T eeth: Gum Trouble N o. G astrointestinal: Bloody Stool N o. N ausea/Vomiting N o. R eflux?No. S tomach Pain/Ulcers N o. F requent Diarrhea N o. F requent Constipation N o. H emorrhoids Y es. U ncontrolled Loss of Stool N o. H eartburn/Acid Stomach N o. S kin: Frequent Rashes N o. F requent Itchiness N o. E asy Bruising N o. S wollen Ankles N o. M usculoskeletal: Joint Swelling N o. J oint pain Y es. J oint stiffness Y es. B ack Pain Y es. J oint Weakness Y es. M uscle Cramps Y es. M uscle Weakness N o. N alexia Pain N o. C old Hands/Feet N o. ? H ematologic: Bleeding problem N o. A nemia N o. B ruising?No. R espiratory: Shortness of Breath N o. M orning Cough N o. P roductive Cough/Sputum N o. C ardiovascular: Heart or Chest Pain N o. A bnormal Heart Beat N o.?Leg Swelling N o. P oor Heart Function N o. S welling of Feet N o. ? G enitourinary: Burning on Urination N o. I ncontinence N o. P elvic Pain N o. D ifficulty Starting to Urinate N o. U rinate at Night More Than Once Y es. U nable to Completely Empty Bladder N o. N eurological: Numbness/ Tingling N o. S eizures/ Epilepsy N o.?Weakness/ Paralysis of Feet/Hands N o. M addie loss N o. B alance Problems N o. C oordination Problems N o. T remors N o. D izziness N o. F ainting No. B lackouts/Fainting N o. H eadaches/Migraines N o. P sychiatric: Depression N o. A nxiety N o. N ervous Exhaustion N o. P aranoia N o. O bsessive/Compulsive Behavior N o. * Medical History: H eart attack: Yes, Cancer: Yes, Cancer Type: Other, Chronic back pain:: Yes, Heart Attack: Yes, High Blood Pressure: Yes, Asthma/COPD, Hypothyroidism, GI Problems:. * Surgical History: t hyroidectomy 2019, heart stents 2017, lt knee torn meniscus 2009. * Family History: M other: Cancer,Scoliosis. F [...] levothyroxine , Taking atorvastatin , Taking metoprolol * Allergies: N .K.D.A. Objective: * Vitals: H t: 5'1 , Wt: 168 lbs, BMI:31.74. * Examination: G eneral examination: G eneral exam: Patient is well-appearing female resting comfortably no acute distress. Patient is awake alert and oriented x 3. Normal mood and affect. Ambulates with antalgic gait. X -ray Imaging Studies: 4 views right knee mild lateral joint space narrowing. No acute fracture or dislocation. Reviewed from 02/16/2025. Radiographs demonstrate complete loss of medial joint space with subchondral sclerosis and periarticular osteophytes. Moderate patellofemoral joint space narrowing. C ardiovascular: R egular rate and rhythm. P ulmonary: U nlabored breathing. R ight Lower Extremity: S kin intact no erythema or ecchymosis. Mild edema. Trace effusion. Tender to palpation medial joint line, lateral joint, peripatellar. Knee range of motion 0 to 120 degrees. Varus deformity partially correctable. Knee stable varus valgus stress. Stable anterior posterior drawer. Negative Dania's. Pain with Renita's. 5 out of 5 quad strength. Motor intact TA, GSC, EHL, FHL. Sensation intact to light touch SPN, DPN, sural, saphenous, tibial nerve distribution. 2+ DP pulse. Toes are well-perfused. No calf pain. Negative Homans. No hip or groin pain with range of motion. Assessment: * Assessment: 1. P rimary osteoarthritis of right knee - M17.11 (Primary) 2 . R ight knee pain - M25.561 Right knee pain Right knee osteoarthritis. Plan: * Treatment: * Preventive Medicine: MIPS Measures: C MS139 Fall Risk S creening: N o falls in the past year.? Screenings: F all Risk Screening F all Risk Assessment: N o falls in the past year. * Follow Up: 2 Weeks Forms: * Images: * Electronic signature of Jeramie Younger MD on 03/30/2025 at 10:54 AM EDT Sign off status: Pending * Provider: Aurea Younger MD Date: 0 03/21/2025 Generated for Movatu raghav/Ludin/Jacksonitting on: 0 03/30/2025 10:54 AM EDT History and Physical Notes * HPI (History of Present Illness) Category Sub-Category Detail Notes Category Not es HPI Patient is a 74 -year-old female who presents for follow-up evaluation of right knee pain. Patient has been experiencing right knee pain for several years with significant worsening over the last year. Pain is sharp and severe in nature. Pain is located to the medial aspect of her knee. Pain is worse with standing and walking. Pain improves with rest. Denies feelings of instability. She does note some catching and clicking. Denies hip or groin pain. Denies numbness or tingling in her toes. Denies prior surgery on the knee. She has been taking Tylenol and ibuprofen with mild relief. She tried home exercises with minimal relief. She had injections with minimal relief. She also tried nerve ablations around her knee without relief. She ambulates without assistive device. Denies history of diabetes or DVT. Examination Category Sub-Category Detail Notes Category Not es General examination General exam: Patient is well-appearing female resting comfortably no acute distress. Patient is awake alert and oriented x 3. Normal mood and affect. Ambulates with antalgic gait. X-ray Imaging Studies 4 view s right knee mild lateral joint space narrowing. No acute fracture or dislocation. Reviewed from 02/16/2025. Radiographs demonstrate complete loss of medial joint space with subchondral sclerosis and periarticular osteophytes. Moderate patellofemoral joint space narrowing. Cardiovascular Regular rate and rhythm Pulmonary Unlabored breat saul Right Lower Extremity Skin i ntact no erythema or ecchymosis. Mild edema. Trace effusion. Tender to palpation medial joint line, lateral joint, peripatellar. Knee range of motion 0 to 120 degrees. Varus deformity partially correctable. Knee stable varus valgus stress. Stable anterior posterior drawer. Negative Dania's. Pain with Renita's. 5 out of 5 quad strength. Motor intact TA, GSC, EHL, FHL. Sensation intact to light touch SPN, DPN, sural, saphenous, tibial nerve distribution. 2+ DP pulse. Toes are well-perfused. No calf pain. Negative Homans. No hip or groin pain with range of motion.
--- OUTSIDE RECORDS SUMMARY | 2025-03-24 06:00 | XMS_ITS ---
Author Organization [facility] Address [address] [place] [address] Care Team Providers Care Rehabilitation Aide/Scheduler Name Role Phone Matthew Harman, Janina Primary Care Provider Unavail able Jose Rodríguez Unavailable [phone] Self, Referral Unavailable Unavailable Jeramie Younger Unavailable [phone] REASON FOR VISIT Right TKA @ [facility] Encounters Encounter Location Date Provider Diagnosis [facility] [address] [place] [address] 03/24/2025 Jeramie Younger Primary osteoarthrit is of right knee M17.11 Assessments Encounter Date Diagnosis (ICD Code) Assessment Notes Treatment Notes Treatment Clinical Notes Section Notes 03/24/2025 Primary osteoarthritis of right knee (ICD-10 - M17.11) Plan Of Treatment Next Appt Details Provider Name:Jeramie Younger, 04/11/2025 09:50:00 AM, [address] [facility] , [address], [address], Progress Notes * GARTH REGALADO BDOB:1949 (74 yo F)Acc No.[id number]:03/24/2025 Patient: GARTH CRAWFORD Provider: Aurea Younger MD :1950 A ge:74 Y S ex:Female Date:03/24/2025 Address:[address] [place] [id number] Pcp:Janina Castro M.D. * Images: * Electronic signature of Jeramie Younger MD on 03/30/2025 at 10:51 AM EDT Sign off status: Pending * Provider: Aurea Younger MD Date: 0 03/24/2025 Generated for Elizabeth avilez/Ludin/Kim on: 0 03/30/2025 10:51 AM EDT
--- OUTSIDE RECORDS SUMMARY | 2025-03-24 08:04 | XMS_ITS | Encounter Summary ---
Author Organization [facility] Address [address] [address] Care Team Providers Care Staff Trainer Name Role Phone Janina Castro MD Primary Care Provider [phone] Reason for Visit * Auth/Cert Specialty Diagnoses / Procedures Referred By Chevy t Referred To Contact Diagnoses Right knee pain, unspecified chronicity Osteoarthritis of right knee, unspecified osteoarthritis type Right knee pain, unspecified chronicity [M25.561] Osteoarthritis of right knee, unspecified osteoarthritis type [M17.11] Procedures AR ARTHRP KNE CONDYLE&PLATU MEDIAL&LAT COMPARTMENTS RIGHT TOTAL KNEE ARTHROPLASTY Jeramie Younger MD [address] [place] [address] Phone: tel: fax: [facility] Phone: tel: Referral ID Status Reason Start Date Expiration Date Visits Re quested Visits Authorized [id number] 1 1 Encounter Details Date Type Department Care Team (Latest Contact Info) Description 03/24/2025 8:04 AM EDT - 03/26/2025 1:22 PM EDT Hospital Encounter [facility] [address] [place] [address] Jeramie Younger MD [address] [place] [address] S/P total knee arthroplasty, right (Primary Dx) Discharge Disposition: Home or Self Care Social History Tobacco Use Types Packs/Day Years Used Date Smoking Tobacco: Former Smokeless Tobacco: Never Alcohol Use Standard Drinks/Week Comments No 0 (1 standard drink = 0.6 oz pur e alcohol) [facility] Utilities Answer Date Recorded In the past 12 months has th e electric, gas, oil, or water company threatened to shut off services in your home? No 03/24/2025 Hunger Vital Sign Answer Date Recorded Within the past 12 months, y ou worried that your food would run out before you got the money to buy more. Never true 03/24/20 25 Within the past 12 months, t he food you bought just didn't last and you didn't have money to get more. Never true 03/24/2025 PRAPARE - Transportation Answer Date Re corded In the past 12 months, has l ack of transportation kept you from medical appointments or from getting medications? No 03/13 In the past 12 months, has l ack of transportation kept you from meetings, work, or from getting things needed for daily living? No 03/24/2025 Housing Stability Vital Sign Answer Balaji e Recorded In the last 12 months, was t here a time when you were not able to pay the mortgage or rent on time? No 03/24/2025 In the past 12 months, how m any times have you moved where you were living? 0 03/24/2025 At any time in the past 12 m [facility], were you homeless or living in a skilled nursing (including now)? No 03/24/2025 Food Insecurity Answer Date Recorded Within the past 12 months, y ou worried that your food would run out before you got the money to buy more. 1 03/24/2025 Within the past 12 months, t he food you bought just didn't last and you didn't have money to get more. 1 03/24/2025 Interpersonal Safety Domain Source: IP Abuse Scr eening Answer Date Recorded Physical abuse Denies 03/24/2025 Verbal abuse Denies 03/24/2025 Emotional abuse Denies 03/24/2025 Financial abuse Denies 03/24/2025 Sexual abuse Denies 03/24/2025 Comments No Sex and Gender Information Value Date Recorded Sex Assigned at Female 03/10/2025 11:45 AM EDT Legal Sex Female 10:32 AM EDT Gender Identity Not on file Sexual Orientation Not on file documented as of this encounter Last Filed Vital Signs Vital Sign Reading Time Taken Comments Blood Pressure 154/72 03/26/2025 11:48 AM EDT Pulse 54 03/26/2025 11:48 AM EDT Temperature 36.9 C (98.5 F) 03/26/2025 11:48 AM EDT Respiratory Rate 16 03/26/2025 11:4 8 AM EDT Oxygen Saturation 92% 03/26/2025 11: 48 AM EDT Inhaled Oxygen Concentration - - Weight 82.9 kg (182 lb 12.2 oz) 03/26/2025 3:50 AM EDT Height 162.6 cm (5' 4 ) 03/26/2025 3:50 AM EDT Body Mass Index 31.37 03/26/2025 3:50 AM EDT documented in this encounter Discharge Summaries * Brandon Jose MD - 03/26/2025 11:50 AM EDT Physician Discharge Summary Patient ID: Nicolette Regalado [id number] y.o. 1950 Admit date: 03/24/2025 Discharge date and time: No discharge date for patient encounter. Admitting Physician: Jeramie Younger MD Discharge Physician: Brandon Jose MD Admission Diagnoses: Right knee pain, unspecified chronicity [M25.561] Osteoarthritis of right knee, unspecified osteoarthritis type [M17.11] S/P total knee arthroplasty, right [Z96.651] Discharge Diagnoses: Principal diagnosis: Osteoarthritis left knee Secondary diagnoses: 1. Hypothyroidism 2. Postoperative hyponatremia 3. Coronary artery disease 4. Hypertension 5. Hyperlipidemia Hospital Problem List: Active Hospital Problems Diagnosis Date Noted S/P total knee arthroplasty, right [Z96.651] 03/24/2025 Admission Condition: stable Discharged Condition: stable Hospital Course: Patient was admitted for same-day surgery on March 24, 2025. She underwent left total knee replacement by Dr. Younger for severe osteoarthritis. Initial plan was for the patient to stay 23-hour stay postsurgery. Morning of the surgery the patient's sodium level was found to be low at 129. After normalsaline infusion sodium level had dropped to 126. 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 Patient was initiated on sodium tablets and observed for an additional 24 hours. On the morning of discharge the sodium level was increased to 129. Plan will be to discharge the patient hometo continue 2 g of sodium tablets twice daily for 5 days. I have given the patient a prescription for repeat electrolyte panel to be done this coming Friday. These results will be sent to the patient's primary care provider. The patient did participate in physical occupational therapy while in the hospital postoperatively.Patient made good though slow progress. Patient is to be discharged home on continued high-dose aspirin for DVT prophylaxis and has been provided a prescription for as needed oxycodone. Patient did have some issues with constipation prior to discharge and she is encouraged to remain on twice daily stool softener post discharge. Consults: IP CONSULT TO HOSPITALIST Significant Diagnostic Studies: EKG: None Labs: CBC: Recent Labs 03/25/25 0430 03/26/25 0430 HGB 9.1* 8.3* HCT 26.8* 24.5* BMP: Recent Labs 03/25/25 0430 03/25/25 1435 03/25/25 1552 NA 130* 126* 126* K 3.8 -- 3.8 CL 102 -- 98 CO2 22 -- 24 BUN 13 -- 12 CREATININE 0.70 -- 0.73 GLUCOSE 93 -- 97 LFT's: No results for input(s): AST , ALT , BILITOT , ALKPHOS in the last 72 hours. Invalid input(s): ALB Troponin: No results for input(s): TROPONINI in the last 72 hours. BNP: No results for input(s): BNP in the last 72 hours. INR: No results for input(s): INR in the last 72 hours. Lipids: No results for input(s): CHOL , HDL , LDL in the last 72 hours. Urinalysis: Lab Results Component Value Date/Time NITRU NEGATIVE 05/19/2018 02:05 PM WBCUA 0-2 03/25/2025 05:24 PM BACTERIA None Seen 03/25/2025 05:24 PM BACTERIA NOT REPORTED 05/19/2018 02:05 PM RBCUA Rare 03/25/2025 05:24 PM BLOODU Negative 03/25/2025 05:24 PM SPECGRAV 1.015 07/01/2016 10:46 AM GLUCOSEU Negative 03/25/2025 05:24 PM Imaging Results: US DUP LOWER EXTREMITY RIGHT ELVIRA Final Result No evidence of bilateral lower extremity deep venous thrombosis. XR KNEE RIGHT (1-2 VIEWS) Final Result Arthroplasty without complication. Microbiology: Results No results found for the last 336 hours. Primary Treatments: surgery: Left total knee replacement Discharge Exam: BP (!) 155/61 Pulse 60 Temp 98.4 ??F (36.9 ??C) (Oral) Resp 16 Ht 1.626 m (5' 4 ) Wt 82.9kg (182 lb 12.2 oz) SpO2 96% BMI 31.37 kg/m?? Physical Exam Cardiovascular: Rate and Rhythm: Normal rate and regular rhythm. Pulses: Normal pulses. Heart sounds: Normal heart sounds. Pulmonary: Effort: Pulmonary effort is normal. Breath sounds: Normal breath sounds. Neurological: General: No focal deficit present. Mental Status: She is alert. Mental status is at baseline. Disposition: home Activity: activity as tolerated; patient is to walk with a walker until she regains her strength and is pain-free. Patient is scheduled for outpatient physical therapy. Diet: regular diet Wound Care: keep wound clean and dry Important Issues to Review with PCP: We Postoperative Hyponatremia; Repeat BMP Is Ordered for Friday of This Coming Week. Follow-up Appointments: Janina Castro MD within [address] Younger as previously scheduled. Discharge Medications: Medication List START taking these medications aspirin 325 MG tablet Commonly known as: Nora Aspirin Take 1 tablet by mouth daily oxyCODONE 5 MG immediate release tablet Commonly known as: Roxicodone Take 1 tablet by mouth every 6 hours as needed for Pain for up to 5 days. Intended supply: 5 days. Take lowest dose possible to manage pain Max Daily Amount: 20 mg pregabalin 75 MG capsule Commonly known as: Lyrica Take 1 capsule by mouth every 12 hours as needed (breakthrough pain) for up to 14 days. Max Daily Amount: 150 mg CONTINUE taking these medications busPIRone 5 MG tablet Commonly known as: BUSPAR calcium carbonate 600 MG Tabs tablet CoQ10 100 MG Caps fish oil 1000 MG capsule FLAXSEED (LINSEED) PO glucosamine-chondroitin 500-400 MG tablet halobetasol 0.05 % cream Commonly known as: ULTRAVATE levothyroxine 100 MCG tablet Commonly known as: SYNTHROID magnesium oxide 400 (240 Mg) MG tablet Commonly known as: MAG-OX metoprolol succinate 25 MG extended release tablet Commonly known as: TOPROL XL ONE-A-DAY WOMENS FORMULA PO vitamin C 500 MG tablet Commonly known as: ASCORBIC ACID vitamin D 25 MCG (1000 UT) Tabs tablet Commonly known as: CHOLECALCIFEROL VITAMIN K PO Where to Get Your Medications These [id number] - [place], [place] - [address] [facility] [phone] - F [phone] [facility] [phone] aspirin 325 MG tablet oxyCODONE 5 MG immediate release tablet pregabalin 75 MG capsule Discharge Instructions: Please return to hospital if you have fever, chills, night sweats, chest pain, shortness of breath, or any other new concerning symptoms. Parts of this note may have been dictated utilizing voice recognition software. This may lead to occasional errors in cartridge assembling machine adjuster. Care is taken to minimize these errors. If the reader of this notehas any questions regarding potential errors, please contact me right away for clarification. documented in this encounter Discharge Instructions * Discharge Instructions* Nereida Romeo PA - 03/24/2025 1:39 PM EDT Total Joint Replacement Discharge Instructions To prevent Clot formation, you have been placed on an anticoagulant Surgical Site Care: Dressing to remain clean, dry, and intact until follow up in office in 2 weeks Sutures may be present and will likely be removed at 2 week follow up Showering is permitted over dressing as long as dressing remains fully intact. Do no shower if dressing is peeling or compromised Physical Therapy: Full Weight Bearing Status Precautions Per Physical Therapy handout Pain Medications You were given pain medication Wean off pain medications as you deem appropriate as long as pain is under control Cold packs/Ice packs/Machine May be used 3 times daily for 15-30 minutes as necessary Be sure to have a barrier (cloth, clothing, towel) between the site and the ice pack to prevent frostbite Contact [facility] office if Increased redness, swelling, drainage of any kind, and/or pain to surgery site. As well as new onset fevers and or chills. These could signify an infection. Calf or thigh tenderness to touch as well as increased swelling or redness. This could signify a clot formation. Numbness or tingling to an area around the incision site or below the incision site (toes). Any rash appears, increased or new onset nausea/vomiting occur. This may indicate a reaction to a medication. - [facility] Follow up with Surgeon at scheduled appointment time. documented in this encounter Medications at Time of Discharge sodium chloride 1 g tablet Take 2 tablets by mouth in the morning and at bedtime for 5 days 20 tablet 03/26/2025 03/31/2025 docusate sodium (COLACE) 100 MG capsule Take 1 capsule by mouth 2 times daily for 10 days 20 capsule 03/26/2025 04/05/2025 pregabalin (LYRICA) 75 MG capsuleIndicatio ns:S/P total knee arthroplasty, right Take 1 capsule by mouth every 12 hours as needed (breakthrough pain) for up to 14 days. Max Daily Amount: 150 mg 28 capsule 03/24/2025 04/07/2025 aspirin (NORA ASPIRIN) 325 MG tablet Take 1 tablet by mouth daily 30 tablet 03/24/2025 04/23/2025 vitamin C (ASCORBIC ACID) 500 MG tablet Take by mouth vitamin D (CHOLECALCIFEROL ) 25 MCG (1000 UT) TABS tablet Take by mouth daily FLAXSEED, LINSEED, PO Take by mouth magnesium oxide (MAG-OX) 400 (240 Mg) MG tablet Take 1 tablet by mouth [place]-3 Fatty Acids (FISH OIL) 1000 MG capsule Take by mouth Coenzyme Q10 (COQ10) 100 MG CAPS Take by mouth VITAMIN K PO Take by mouth calcium carbonate 600 MG TABS tablet Take 1 tablet by mouth daily busPIRone (BUSPAR) 5 MG tablet Take 1 tablet by mouth 3 times daily glucosamine-winter droitin 500-400 MG tablet Take by mouth levothyroxine (SYNTHROID) 100 MCG tablet Take 1 tablet by mouth Daily 06/29/2022 metoprolol succinate (TOPROL XL) 25 MG extended release tablet Take 1 tablet by mouth daily 05/25/2022 Multiple Vitamins-Calcium (ONE-A-DAY WOMENS FORMULA PO) Take by mouth halobetasol (ULTRAVATE) 0.05 % cream USE NEEDED 2 04/11/2016 oxyCODONE (ROXICODONE) 5 MG immediate release tabletIndication s:S/P total knee arthroplasty, right Take 1 tablet by mouth every 6 hours as needed for Pain for up to 5 days. Intended supply: 5 days. Take lowest dose possible to manage pain Max Daily Amount: 20 mg 20 tablet 03/24/2025 03/29/2025 documented as of this encounter Progress Notes * Anya Flores RN - 03/26/2025 1:17 PM EDT Discharge instructions reviewed with patient and . Voice understanding. Pt taken to private car via wheelchair. Pt dimitri well. * Jeramie Younger MD - 03/26/2025 7:10 AM EDT Progress Note Subjective: Post-Operative Day: 1 Status Post right Total Knee Arthroplasty Patient resting comfortably in bed. Pain well controlled. Feels she is doing a little bit better today. Continued mild calf pain. Denies chest pain, shortness of breath, nausea, lightheadedness, dizziness, and numbness/tingling in her toes and feet Objective: VITALS: BP 138/61 Pulse 55 Temp 98.6 ??F (37 ??C) (Oral) Resp 18 Ht 1.626 m (5' 4 ) Wt 82.9 kg (182 lb 12.2 oz) SpO2 94% BMI 31.37 kg/m?? 24HR INTAKE/OUTPUT: Intake/Output Summary (Last 24 hours) at 03/26/2025 0713 Last data filed at 03/26/2025 0640 Gross per 24 hour Intake 2280 ml Output 2400 ml Net -120 ml TEMPERATURE: Current - Temp: 98.6 ??F (37 ??C); Max - Temp Av.8 ??F (37.1 ??C) Min: 98.6 ??F (37 ??C) Max: 99 ??F (37.2 ??C) RESPIRATIONS RANGE: Resp Av.7 Min: 12 Max: 18 PULSE RANGE: Pulse Av Min: 52 Max: 58 BLOOD PRESSURE RANGE: Systolic (24hrs), Av , Min:109 , Max:150 ; Diastolic (24hrs), Av, Min:52, Max:70 PULSE OXIMETRY RANGE: SpO2 Av.6 % Min: 91 % Max: 95 % General: alert, appears stated age, cooperative, and no distress Wound: Wound clean and dry no evidence of infection., No Erythema, and No Drainage DVT Exam: No evidence of DVT seen on physical exam. Negative Cecilio's sign. No cords or calf tenderness. No significant calf/ankle edema. Knee swollen but thigh soft and compressible. Motor intact quad, hamstring, TA, GSC, EHL, FHL. SILTSPN, DPN, sural, saphenous, tibial nerve distribution. 2+ DP pulse. Toes warm and well perfused. Data Review CBC: Lab Results Component Value Date/Time WBC 14.4 06/03/2018 03:55 AM RBC 3.62 06/03/2018 03:55 AM HGB 9.1 03/25/2025 04:30 AM HCT 26.8 03/25/2025 04:30 AM PLT 164 06/03/2018 03:55 AM BMP: Lab Results Component Value Date/Time NA 126 03/25/2025 03:52 PM K 3.8 03/25/2025 03:52 PM CL 98 03/25/2025 03:52 PM CO2 24 03/25/2025 03:52 PM BUN 12 03/25/2025 03:52 PM CREATININE 0.73 03/25/2025 03:52 PM GLUCOSE 97 03/25/2025 03:52 PM Assessment: Status Post right Total Knee Arthroplasty. Doing well postoperatively. Plan: POD 2 s/p right TKA WBAT RLE PT/OT PO pain control AM Hgb 8.3. Hemodynamically stable. Asymptomatic. DVT prophylaxis: ROBERTO ryan, SCDs, Aspirin Venous duplex US right lower extremity negative for DVT Hospitalist consulted for medical management AM sodium 129 per lab verbal report. Improving but still low. Will recheck at noon. AM potassium 3.5. Anticipate D/C home today pending clinical progression. May stay another night depending on electrolyte levels Dressing to remain clean, dry, and intact until follow up in office. Patient to follow up in officewith Dr. Younger in 2 weeks. Call office with any questions or concerns Patient care discussed with Nereida Romeo PA-C. Agree with assessment and plan. Jeramie Younger MD Orthopaedic Surgeon [facility] 03/28/2025 1:38 PM * Rhona Childers RN - 03/25/2025 6:08 PM EDT Pt given HS snack of Sprite and Chips to increase sodium level. Pt reminded she must lay without any pillows under her Rt knee - reminded she needs to keep knee flat to the bed * Rhona Childers RN - 03/25/2025 3:[address] Rin Younger called and updated on Na level and 's plan of care . Dr. Younger states his PAwill be around in the am to see the patient tomorrow. * Rhona Childers RN - 03/25/2025 3:28 PM EDT Pt and her updated on plan of care - Hyponatremia and the treatment explained - questions invited and answered. Pt aware she would need to stay thru tonight. * Brandon Jose MD - 03/25/2025 9:27 AM EDT I was asked to look at the patient's sodium level. Sodium is 130. 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 I do not believe any specific therapy is needed. I will plan to repeat BMP in 5 days. * Poonam Crawley, PT - 03/25/2025 9:01 AM EDT Images from the original note were not included. Facility/Department: [facility] Physical Therapy Inpatient Orthopaedic Evaluation Patient Name: Nicolette Regalado : 1950 (74 y.o.) CODE STATUS: Full Code Date of Service: 03/25/2025 DISCHARGE RECOMMENDATIONS Continue to assess pending progress, Outpatient PT PERTINENT MEDICAL HISTORY PAST MEDICAL HISTORY Diagnosis Date Adolescent scoliosis Bradycardia after surgery CAD (coronary artery disease) Cancer (HCC) 03/2018 ENDOMETRIAL Heart disease stent x2 in one artery History of heart artery stent 05/2017 TIMES 2 Hyperlipidemia Hypertension SEES BUENROSTRO IN [place] Hyperthyroidism IBS (irritable bowel syndrome) PONV (postoperative nausea and vomiting) Scoliosis Wears glasses PAST SURGICAL HISTORY Procedure Laterality Date BACK SURGERY 2014-06-26 low back CHOLECYSTECTOMY, LAPAROSCOPIC 11/28/2015 COLONOSCOPY 10/26/2014 CORONARY ANGIOPLASTY WITH STENT PLACEMENT 05/2017 2 CARDIAC STENTS HYSTERECTOMY (CERVIX STATUS UNKNOWN) 06/02/2018 Robotic with BSO KNEE SURGERY left torn meniscus AR OFFICE/OUTPT VISIT,PROCEDURE ONLY N/A 06/02/2018 XI ROBOTIC MODIFIED RADICAL HYSTERECTOMY, BSO, CYTOLOGIC WASHING, SENTINEL LYMPH NODE MAPPING AND BIOPSIES. performed by Farhad Mendez MD at [facility] OR REIMPLANT URETER IN BLADDER THYROIDECTOMY 05/2019 TUBAL LIGATION MEDICATIONS Current Facility-Administered Medications: sodium chloride 0.9 % bolus 1,000 mL, 1,000 mL, IntraVENous, Once, Nereida Romeo PA, Last Rate: 495.9 mL/hr at 03/25/25 0837, 1,000 mL at 03/25/25 0837 scopolamine (TRANSDERM-SCOP) transdermal patch 1 patch, 1 patch, TransDERmal, Q72H, Nereida Romeo PA, 1 patch at 03/24/25 0847 0.9 % sodium chloride infusion, , IntraVENous, Continuous, Nereida Romeo PA, Last Rate: 80 mL/hr at03/24/25 1440, New Bag at 03/24/25 1440 sodium chloride flush 0.9 % injection 5-40 mL, 5-40 mL, IntraVENous, 2 times per day, Nereida RomeoPA sodium chloride flush 0.9 % injection 5-40 mL, 5-40 mL, IntraVENous, PRN, Nereida Romeo PA 0.9 % sodium chloride infusion, , IntraVENous, PRN, Ally Romeoil, PA acetaminophen (TYLENOL) tablet 650 mg, 650 mg, Oral, Q6H, Ally Romeoil, PA, 650 mg at 03/25/25 0841 oxyCODONE (ROXICODONE) immediate release tablet 5 mg, 5 mg, Oral, Q4H PRN OR oxyCODONE (ROXICODONE) immediate release tablet 10 mg, 10 mg, Oral, Q4H PRN, Nereida Romeo, PA, 10 mg at 03/25/25 0631 ondansetron (ZOFRAN-ODT) disintegrating tablet 4 mg, 4 mg, Oral, Q8H PRN OR ondansetron (ZOFRAN) injection 4 mg, 4 mg, IntraVENous, Q6H PRN, Ally Romeoil, PA polyethylene glycol (GLYCOLAX) packet 17 g, 17 g, Oral, Daily, Ally Romeoil, PA, 17 g at 03/25/25 0842 bisacodyl (DULCOLAX) EC tablet 5 mg, 5 mg, Oral, Daily PRN, Ally Romeoil, PA senna (SENOKOT) tablet 8.6 mg, 1 tablet, Oral, Daily PRN, Ally Romeoil, PA aspirin EC tablet 325 mg, 325 mg, Oral, Daily, Ally Romeoil, PA, 325 mg at 03/25/25 0841 diphenhydrAMINE (BENADRYL) capsule 25 mg, 25 mg, Oral, Q6H PRN OR diphenhydrAMINE (BENADRYL) injection 25 mg, 25 mg, IntraVENous, Q6H PRN, Nereida Romeo PA pregabalin (LYRICA) capsule 75 mg, 75 mg, Oral, Q12H PRN, Nereida Romeo PA levothyroxine (SYNTHROID) tablet 100 mcg, 100 mcg, Oral, QAM, Nereida Romeo PA, 100 mcg at 608 metoprolol succinate (TOPROL XL) extended release tablet 25 mg, 25 mg, Oral, QAM, Nereida Romeo PA,25 mg at 03/25/25 0841 busPIRone (BUSPAR) tablet 5 mg, 5 mg, Oral, TID PRN, Brandon Jose MD magnesium oxide (MAG-OX) tablet 400 mg, 400 mg, Oral, Daily, Brandon Jose MD, 400 mg at 03/25/25 0841 ketorolac-BUPivacaine 60-150 mg/50mL ML injection 50 mL, 50 mL, Other, Once, Nereida Romeo PA ALLERGIES Beta adrenergic blockers, Ciprofloxacin, Gluten, Leucine, Losartan, Nickel, and Other RADIOLOGY XR KNEE RIGHT (1-2 VIEWS) Final Result Arthroplasty without complication. US DUP LOWER EXTREMITY RIGHT ELVIRA (Results Pending) SUBJECTIVE EXAMINATION Chart Reviewed: Yes Patient assessed for rehabilitation services?: Yes History & Physical: Patient is a 74 y/o female who presented with right knee pain. The patient exhausted nonoperative interventions for knee pain and arthritis and continued to have debilitating pain. Radiographs demonstrated bone on bone arthritis. Pain was affecting her quality of life and she desired to proceed with total knee arthroplasty. Discussed procedure, risks, benefits, and alternatives with patient including but not limited to bleeding, infection, neurovascular injury, knee stiffness, fracture, VTE, need for additional surgery, continued pain, and risk of anesthesia. Patient understood the risks and elected to proceed with surgery. PT referral to evaluate and treat mobility Response To Previous Treatment: Not applicable Follows Commands: Within Functional Limits Referring Provider: Dr. Damon Younger Chief Reason For Therapy: Orthopedic;Total Knee Admitting Diagnosis: Right knee pain, unspecified chronicity [M25.561] Osteoarthritis of right knee, unspecified osteoarthritis type [M17.11] S/P total knee arthroplasty, right [Z96.651] Treatment Diagnosis: difficulty in walking Referral Date: 03/25/2025 Surgery Date: 03/24/2025 General Comments: underwent RIGHT TOTAL KNEE ARTHROPLASTY (Right: Knee) on 03/24/25 Subjective: at arrival, pt in bed, AGreeable to PT evaluation. reports 2/10 in her right knee at rest without movement, i know if i move it the pain will go up RESTRICTIONS Restrictions/Precautions: Fall Risk, Weight Bearing Lower Extremity Weight Bearing Restrictions Right Lower Extremity Weight Bearing: Weight Bearing As Tolerated ORIENTATION/COGNITION Overall Orientation Status: Within Normal Limits Orientation Level: Oriented X4 Overall Cognitive Status: WNL Overall Cognitive Status: WNL VISION/HEARING Vision: Impaired Vision Exceptions: Wears glasses at all times Hearing: Within functional limits SOCIAL/FUNCTIONAL HISTORY Social/Functional History Lives With: Spouse Type of Home: House Home Layout: Two level;Able to Live on Main level with bedroom/bathroom Home Access: Stairs to enter with rails Entrance Stairs - Number of Steps: 3 steps no handrail; full flight to second floor with one handrail; patient later reports she has asmall step thru the back --but she would have to walk in the grass Bathroom Shower/Tub: Tub/Shower unit;Shower chair with back Bathroom Toilet: Handicap height Bathroom Equipment: Grab bars in shower;Shower chair;Hand-held shower Bathroom Accessibility: Not accessible (will have to go thru bathroom sideways with walker) Home Equipment: Grab bars;Adjustable bed;Walker - Rolling;Cane Has the patient had two or more falls in the past year or any fall with injury in the past year?: No Receives Help From: Family Prior Level of Assist for ADLs: Independent Prior Level of Assist for Homemaking: Independent Homemaking Responsibilities: Yes Meal Prep Responsibility: Primary Laundry Responsibility: Primary Cleaning Responsibility: Primary Prior Level of Assist for Ambulation: Independent community ambulator, with or without device Prior Level of Assist for Transfers: Independent 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 Per post-op protocol, 3.0L of 02 NC [] Wears 02 NC at baseline [] None [x] Drainage noted from post operative bandage? Yes [] No [x] Hemovac in place? Yes, at incision site [] No [x] GROSS ASSESSMENT Tone: Normal Sensation: Intact ROM AROM RLE (degrees) RLE AROM: Exceptions R Knee Extension (0): lacking approx 5 degrees from 0 AROM LLE (degrees) LLE AROM : WFL STRENGTH Strength RLE Strength RLE: Exception Comment: NT secondary to pain with AROM Strength LLE Strength LLE: WFL FUNCTIONAL MOBILITY BED MOBILITY Supine to Sit: Modified independent Scooting: Modified independent, TRANSFERS Sit to Stand: Stand by assistance Stand to Sit: Stand by assistance Comment: with verbal cues for safety and hand placement, AMBULATION Ambulation Surface: Level tile Device: Rolling Walker Assistance: Stand by assistance Gait Deviations: Slow Katherine;Decreased step length;Decreased step height Distance: 25', 15' , STAIRS Stairs/Curb Stairs?: Yes Stairs # Steps : 2 Stairs Height: 6 Rails: Bilateral Device: Rolling walker Assistance: Stand by assistance Comment: verbal cues for sequencing and safety awareness EXERCISES Patient performed long seated there ex to increase right LE strength and mobility x 15 Each: Isometric quad sets with 3 hold Isometric gluteal squeeze with 3 hold Heel slides AAROM rightlower extremity SLR AAROM rightlower extremity Hip Abduction AAROM rightlower extremity Ankle DF Ankle PF SAQ PHYSICAL THERAPY EDUCATION Education Education Given To: Patient;Staff Education Provided: Role of Therapy;Plan of Care;Mobility Training;Transfer Training;Precautions;Safety;Energy Conservation;Fall Prevention Strategies;Home Exercise Program Education Provided Comments: educated patient on importance of not placing anythign directly under the R knee to avoid contractures; Education Method: Verbal;Printed Information/Hand-outs Barriers to Learning: None Education Outcome: Verbalized understanding;Continued education needed Educated pt on TKA precautions as well as proper gait sequencing to ensure safety of prosthesis andprevent increase in pain. Educated pt on proper transfer technique in relation to TKA precautions. ASSESSMENT BODY STRUCTURES, FUNCTIONS, ACTIVITY LIMITATIONS Decreased functional mobility , Decreased strength, Decreased ROM, Decreased ADL status, Decreased balance, Decreased endurance, Decreased high-level IADLs, Decreased posture, Increased pain, Decreased safe awareness Nicolette Regalado is a 74 y.o. female, presents POD # 1 s/p right TKA secondary to failed conservative management who demo decreased strength, endurance, impaired balance, decreased ROM, difficulty in walking, increased pain, inflammation and reduced overall mobilty necessitating the needs for PT services Activity Tolerance Activity Tolerance: Patient limited by pain;Patient limited by endurance;Patient limited by fatigue PROGNOSIS Good HISTORY Refer to PMH EXAM Pain Balance Strength ROM Gait Endurance CLINICAL PRESENTATION Evolving DECISION MAKING Medium Complexity Patient presented with moderate complexity PT evaluation on this date with a need for an expanded review of their medical history necessary and 3-5 performance deficits in activity limitations and the presence of comorbidities that affect their physical performance. TREATMENT INITIATED Transfers, Bed Mobility, Gait training, Education, Stair negotiation, Balance, Safety Awareness PLAN Plan: 1-2x/day x 6-7x/week x Acute LOS Specific Instructions for Next Treatment: cont focusing on strength and functional mobility Current Treatment Recommendations: Strengthening;Balance training;Endurance training;ROM;Functionalmobility training;Transfer training;Gait training;Stair training;ADL/Self-care training;IADL training;Pain management;Patient/Caregiver education & training;Safety education & training;Positioning;Group Therapy;Co- Treatment;Therapeutic activities;Equipment evaluation, education, & procur ement;Modalities;Home exercise program;Neuromuscular re-education GOALS SHORT TERM GOALS Deferred secondary to acute LOS 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 [facility] Goal 1: patient to ascend/descend 1 steps with LRAD SBA to be able to get in/otu of home [facility] Goal 2: patient to ambulate 200' with LRAD mod I to ambulate household distances [facility] Goal 3: patient to ascend/descend full flight of steps with handrail SBA to access secondfloor [facility] Goal 4: patient to perofrm supine<>sit mod IND to be able to get in/out of bed Drug And Alcohol Counselor Goal 5: patient to increase R knee AROM to 0-120 degrees for ease of transfers and mobility Additional Goals?: Yes supervisor intermediates goal 6: patient to increase R knee strength to WFL by performing 15 reps of SLR of RLE without quad lag KNEE DISABILITY AND OSTEOARTHRITIS OUTCOME SCORE Stiffness - The following question concerns the amount of joing stiffness you have experienced during the last week in your knee. Stiffness is a sensation of restriction or slowness in the ease with which you move your knee joint. How severe is your knee stiffness after first wakening in the morning?: moderate (2) Pain - What amount of knee pain have you experienced the last week during the following activities? Twisting/pivoting on your knee: moderate (2) Straightening knee fully: Severe (3) Going up or down stairs: moderate (2) Standing upright: moderate (2) Function - Please indicate the degree of difficulty you have experienced in the last week due to your knee. Rising from sitting: moderate (2) Bending to floor/picking tech an object: Severe (3) Raw Score Jr MIRLANDE. Knee Survey Score: KOOS JR Total Interval Score (0-100 Scale): 47.48 SAFETY Type of Devices: Gait belt;Left in chair;All fall risk precautions in place;Call light within reach;Chair alarm in place;Patient at risk for falls ' THERAPY TIME/CHARGES Time In 07 Time Out 0814 Minutes 69 Charges Units Minutes Low Complexity Evaluation Moderate Complexity Evaluation 1 15 High Complexity Evaluation Gait Training 1 14 Self-care/Home management Therapeutic Activity 1 10 Therapeutic Exercise 1 15 Neuro Re-education Manual Therapy Vasopneumatic Device 1 15 E-stim Poonam Crawley PT, DPT, AIB-VR/CON License #[id number] No co-evaluation completed. Cosigned by Jeramie Younger MD at 03/28/2025 1:37 PM EDT * Jeramie Younger MD - 03/25/2025 7:04 AM EDT Progress Note Subjective: Post-Operative Day: 1 Status Post right Total Knee Arthroplasty Patient resting comfortably in bed. Pain well controlled. Was able to work with therapy yesterday alittle bit. Having a hard time elevating leg to keep knee straight because of chronic back pain. Positive calf pain. Denies chest pain, shortness of breath, nausea, lightheadedness, dizziness, and numbness/tingling in her toes and feet Objective: VITALS: BP (!) 137/50 Pulse 54 Temp 98.1 ??F (36.7 ??C) (Oral) Resp 17 Ht 1.626 m (5' 4 ) Wt 77.1 kg (169 lb 15.6 oz) SpO2 92% BMI 29.18 kg/m?? 24HR INTAKE/OUTPUT: Intake/Output Summary (Last 24 hours) at 03/25/2025 0705 Last data filed at 03/25/2025 0247 Gross per 24 hour Intake 1998.75 ml Output 100 ml Net 1898.75 ml TEMPERATURE: Current - Temp: 98.1 ??F (36.7 ??C); Max - Temp Av ??F (36.7 ??C) Min: 97.6 ??F (36.4 ??C) Max: 98.5 ??F (36.9 ??C) RESPIRATIONS RANGE: Resp Av.3 Min: 13 Max: 19 PULSE RANGE: Pulse Av.7 Min: 42 Max: 56 BLOOD PRESSURE RANGE: Systolic (24hrs), Av , Min:117 , Max:188 ; Diastolic (24hrs), Av, Min:50, Max:112 PULSE OXIMETRY RANGE: SpO2 Av.3 % Min: 90 % Max: 97 % General: alert, appears stated age, cooperative, and no distress Wound: Wound clean and dry no evidence of infection., No Erythema, and No Drainage DVT Exam: No evidence of DVT seen on physical exam. Negative Cecilio's sign. No cords or calf tenderness. No significant calf/ankle edema. Knee swollen but thigh soft and compressible. Motor intact quad, hamstring, TA, GSC, EHL, FHL. SILTSPN, DPN, sural, saphenous, tibial nerve distribution. 2+ DP pulse. Toes warm and well perfused. Data Review CBC: Lab Results Component Value Date/Time WBC 14.4 06/03/2018 03:55 AM RBC 3.62 06/03/2018 03:55 AM HGB 9.1 03/25/2025 04:30 AM HCT 26.8 03/25/2025 04:30 AM PLT 164 06/03/2018 03:55 AM BMP: Lab Results Component Value Date/Time NA 130 03/25/2025 04:30 AM K 3.8 03/25/2025 04:30 AM CL 102 03/25/2025 04:30 AM CO2 22 03/25/2025 04:30 AM BUN 13 03/25/2025 04:30 AM CREATININE 0.70 03/25/2025 04:30 AM GLUCOSE 93 03/25/2025 04:30 AM Assessment: Status Post right Total Knee Arthroplasty. Doing well postoperatively. Plan: POD 1 s/p right TKA WBAT RLE PT/OT PO pain control AM Hgb 9.1. Hemodynamically stable. Asymptomatic. DVT prophylaxis: CLAU Archuletas, Aspirin Venous duplex US right lower extremity Hospitalist consulted for medical management AM sodium 130. Discussed with nurse to notify hospitalist. Will give 1L NS bolus. Recheck sodium this afternoon Anticipate D/C home today pending clinical progression. May stay another night depending on sodium level Dressing to remain clean, dry, and intact until follow up in office. Patient to follow up in officewith Dr. Younger in 2 weeks. Call office with any questions or concerns Patient care discussed with Nereida Romeo PA-C. Agree with assessment and plan. Jeramie Younger MD Orthopaedic Surgeon [facility] 03/28/2025 1:37 PM * Poonam Crawley, PT - 03/24/2025 3:13 PM EDT Images from the original note were not included. [facility] PHYSICAL THERAPY EVALUATION ATTEMPT Date: 03/24/2025 Patient Name: Nicolette Regalado : 1950 (74 y.o.) Gender: female DIAGNOSIS Right knee pain, unspecified chronicity [M25.561] Osteoarthritis of right knee, unspecified osteoarthritis type [M17.11] S/P total knee arthroplasty, right [Z96.651] REASONING PT evaluation attempt this date. says she has a very hard time waking up from anesthesia. Patient woke while PT was talkign to ---states she is very dizzy when she opens her eyes and cant see me and then fell back asleep immediately. Patient inappropriate for PT evaluation this date.Will check back tomorrow morning . Poonam Crawley PT , DPT, AIB-VR/CON, CSRS License #[id number] * Nga Bai RN - 03/24/2025 10:35 AM EDT Verified with Dr. Younger that he knew patient has a nickel allergy. He said we were OK to go. * Pamela Smith RN - 03/14/2025 2:53 PM EDT Covid screening reviewed. Patient denies any positive or symptoms of covid in the last 3 months, denies anyone in household with positive test or symptoms. covid testing na denies any recent Upper respiratory infection or new onset of SOB denies any recent chest pain EKG 03/17/25 Medical Clearance 03/01/25 Last seen by primary care physician 03/01/25 Cardiac Clearance 03/17/25 Surgery 03/24/25, pending arrival time/ pending OR time Instructed: Come in the surgery entrance. Stop and register. Bring ID and insurance card. Nothing to eat after midnight. For your safety, if any food is consumed after midnight your procedure will be canceled. Take the following medications with a sip of water prior to surgery: Hold the following pertinent medications prior to surgery: Bring inhalers if applicable You may brush your teeth in the morning. Leave valuables at home and wear comfortable clothing. Remove body piercing or replace with alternative no metal jewelry. No Jewelry. Use hibiclens as instructed, if instructed by your surgeon. Avoid lotion or powder after you bathe. Limit make-up and remove dark nail turkmen if applicable. Bring any braces, assistive devices, crutches, roberto hose on the day of surgery if to you by your surgeon. Patient any type of bladder or nerve stimulator, if any type of these devices, patient to bring remote. Visitor guidelines reviewed. Someone will call the day before with the arrival time the day of surgery. If you do not hear from anyone before 330pm the day before please call the surgery center at [phone] by 4pm. Discharge discussed. Verbalized understanding acknowledged. VTE: risk. Educational material to be given to patient. documented in this encounter Plan of Treatment Upcoming Encounters Date Type Department Care Team (Late st Contact Info) Description 05/16/2025 11:10 AM EDT Office Visit [facility] Part of [address] [place] [address] Shelby Castillo APRN - [address] [place] [address] yearly--last seen by Dr Gutierrez Pending Results Name Type Priority Associated Diagnoses Date /Time Basic Metabolic Panel Lab Routine 4:30 AM EDT Scheduled Orders Name Type Priority Associated Diagnoses Orde r Schedule Blood glucose - POCT Point of Care Testing Routine One Time for 1 Occurrences starting 03/24/2025 until 03/24/2025 POCT Glucose Point of Care Testing Routine One Time for 1 Occurrences starting 03/24/2025 until 03/24/2025 documented as of this encounter Procedures Procedure Name Priority Date/Time Associated Diagnosis Comments HEMOGLOBIN AND HEMATOCRIT Routine 03/26/2025 4:30 AM EDT URINALYSIS WITH REFLEX TO CULTURE Routine 03/25/2025 5:24 PM EDT BASIC METABOLIC PANEL W/ REFLEX TO MG FOR LOW K Routine 03/25/2025 3:52 PM EDT US DUP LOWER EXTREMITY RIGHT ELVIRA STAT 03/25/2025 3:05 PM EDT SODIUM Timed 03/25/2025 2:35 PM EDT HEMOGLOBIN AND HEMATOCRIT Routine 03/25/2025 4:30 AM EDT BASIC METABOLIC PANEL Routine 03/25/2025 4:30 AM EDT XR KNEE RIGHT (1-2 VIEWS) Routine 03/24/2025 1:55 PM EDT AR ARTHRP KNE CONDYLE&PLATU MEDIAL&LAT COMPARTMENTS 03/24/2025 10:43 AM EDT Right knee pain, unspecified chronicity Osteoarthritis of right knee, unspecified osteoarthritis type Case Notes RANDA/ Makayla 02/24/25[facility] Site- [id number] addedEmail GREGORY/CHING/KATHLEEN/LORA/HARI/JE- 0907 sent Special Needs RANDA/ Makayla 02/24/25[facility] Site- 0854 added Email GREGORY/CHING/KATHLEEN/LORA/HARI/JE- 0907 sent POCT GLUCOSE Routine 03/24/2025 8:49 AM EDT documented in this encounter Results * (ABNORMAL) Hemoglobin and Hematocrit (03/26/2025 4:30 AM EDT) Pathologist [facility] Hemoglobin 8.3(L) 12.0 - 16.0 g/dL 03/26/2025 4:30 AM EDT [facility] Hematocrit 24.5(L) 36.0 - 47.0 % 03/26/2025 4:30 AM EDT [facility] Blood (Blood Whole) 03/26/2025 4:30 AM EDT 03/26/2025 5:25 AM EDT us Nereida WARD HEMATOLOGY ORDERABLES Final Resu lt [facility] [address] [place] [address] * (ABNORMAL) Urinalysis with Reflex to Culture (03/25/2025 5:24 PM EDT) Color, UA Yellow 03/25/2025 5:24 PM EDT [facility] Clarity, UA Clear 03/25/2025 5:24 PM EDT [facility] Glucose, Ur Negative Negative mg/dL 03/25/2025 5:24 PM EDT [facility] Ketones, Urine Trace(A) Negative mg/dL 03/25/2025 5:24 PM EDT [facility] Bilirubin, Urine Negative Negative 03/25/2025 5:24 PM EDT [facility] Specific Kimberly, UA 1.015 1.005 - 1.030 03/25/2025 5:24 PM EDT [facility] pH, Urine 6.0 5.0 - 7.0 03/25/2025 5:24 PM EDT [facility] Blood, Urine Negative Negative 03/25/2025 5:24 PM EDT [facility] Protein, Urine Negative Negative mg/dL 03/25/2025 5:24 PM EDT [facility] Urobilinogen, Urine 0.2 E.U./dL <2.0 E.U./dL 03/25/2025 5:24 PM EDT [facility] Nitrate, UA Negative Negative 03/25/2025 5:24 PM EDT [facility] Leukocyte Esterase, Urine Negative Negative 03/25/2025 5:24 PM EDT [facility] Culture Indicated? No 03/25/2025 5:24 PM EDT [facility] WBC, UA 0-2 #/HPF 03/25/2025 5:24 PM EDT [facility] RBC, UA Rare #/HPF 03/25/2025 5:24 PM EDT [facility] Squam Epithel, UA Few #/LPF 03/25/2025 5:24 PM EDT [facility] MUCUS, URINE None Seen 03/25/2025 5:24 PM EDT [facility] BACTERIA, URINE None Seen 03/25/2025 5:24 PM EDT [facility] Urine 03/25/2025 5:24 PM EDT 03/25/2025 5:24 PM EDT Brandon Jose MD URINE ORDERABLES Final Result [facility] [address] [phone] * (ABNORMAL) Basic Metabolic Panel w/ Reflex to MG (03/25/2025 3:52 PM EDT) Glucose 97 65 - 100 mg/dL 03/25/2025 3:52 PM EDT [facility] BUN 12 7 - 17 mg/dL 03/25/2025 3:52 PM EDT [facility] Creatinine 0.73 0.52 - 1.04 mg/dL 03/25/2025 3:52 PM EDT [facility] Sodium 126(L) 135 - 145 mEq/L 03/25/2025 3:52 PM EDT [facility] Comment: Result amended from (126) (03/25/2025 3:53 PM) to () by CD. Result amended from (Not Reported) (03/25/2025 3:53 PM) to (126) by CD. Potassium 3.8 3.6 - 5.0 mEq/L 03/25/2025 3:52 PM EDT [facility] Chloride 98 98 - 107 mEq/L 03/25/2025 3:52 PM EDT [facility] CO2 24 22 - 32 mEq/L 03/25/2025 3:52 PM EDT [facility] Calcium 7.8(L) 8.4 - 10.2 mg/dL 03/25/2025 3:52 PM EDT [facility] Est, Glom Filt Rate 87 >60 mL/min/1.7 3m2 03/25/2025 3:52 PM EDT [facility] Comment: GFR calculated using CKD-EPI (2020) formula. Stage 1 Kidney damage (e.g., protein in the urine) with normal GFR >=90 Stage 2 Kidney damage with mild decrease in GFR 60-89 Stage 3a Moderate decrease in GFR 45-59 Stage 3b Moderate decrease in GFR 30-44 Stage 4 Severe reduction in GFR 15-29 Stage 5 Kidney failure <15 Blood (Blood Plasma) 03/25/2025 3:52 PM EDT 03/25/2025 3:52 PM EDT Narrative [facility] - 03/25/2025 4:02 PM EDT Result corrected due to result entered in wrong spot. 03/25/2025 at 4:03 PM by JIMENEZ REYNOLDS. us Brandon Jose MD CHEMISTRY ORDERABLES Edited R esult - Final [facility] [address] [place] [address] * US DUP LOWER EXTREMITY RIGHT ELVIRA (03/25/2025 3:05 PM EDT) Anatomical Region Laterality Modality Leg, Vascular Ultrasound 03/25/2025 3:05 PM EDT Impressions 03/25/2025 3:12 PM EDT No evidence of bilateral lower extremity deep venous thrombosis. Narrative 03/25/2025 3:12 PM EDT EXAMINATION: US DUP LOWER EXTREMITY RIGHT ELVIRA, 03/25/2025 3:05 PM EDT HISTORY: right calf pain post op COMPARISON: None. TECHNIQUE: Ultrasound examination of the bilateral lower extremity venous systems was performed using grayscale, color and spectral Doppler. FINDINGS: The common femoral, greater saphenous, profundus, superficial femoral and popliteal veins demonstrate a normal response to augmentation and compression maneuvers bilaterally. Normal response to respiratory variation. Flow is identified in these vessels with no evidence of intraluminal thrombus on either color Doppler or grayscale images. The visualized portions of the proximal calf veins are also normal bilateral. Report electronically signed by: Dr. Stevie Oneal Procedure Note Stevie Oneal MD - 03/25/2025 EXAMINATION: US DUP LOWER EXTREMITY RIGHT ELVIRA, 03/25/2025 3:05 PM EDT HISTORY: right calf pain post op COMPARISON: None. TECHNIQUE: Ultrasound examination of the bilateral lower extremity venous systems was performed using grayscale, color and spectral Doppler. FINDINGS: The common femoral, greater saphenous, profundus, superficial femoral and popliteal veins demonstrate a normal response to augmentation andcompression maneuvers bilaterally. Normal response to respiratory variation. Flow is identified in these vessels with no evidence of intraluminal thrombus oneither color Doppler or grayscale images. The visualized portions of the proximal calf veins are also normalbilateral. Report electronically signed by: Dr. Stevie Oneal IMPRESSION: No evidence of bilateral lower extremity deep venous thrombosis. Nereida WARD IMG US ORDERABLES Final Result * (ABNORMAL) Sodium (03/25/2025 2:35 PM EDT) Sodium 126(L) 135 - 145 mEq/L 03/25/2025 2:35 PM EDT [facility] Blood (Blood Plasma) 03/25/2025 2:35 PM EDT 03/25/2025 2:35 PM EDT Nereida WARD CHEMISTRY ORDERABLES Final Resul t Performing Organization Address [facility] de Phone Number [phone] [place] [address] * (ABNORMAL) Hemoglobin and Hematocrit (03/25/2025 4:30 AM EDT) Hemoglobin 9.1(L) 12.0 - 16.0 g/dL 03/25/2025 4:30 AM EDT [facility] Hematocrit 26.8(L) 36.0 - 47.0 % 03/25/2025 4:30 AM EDT [facility] Blood (Blood Whole) 03/25/2025 4:30 AM EDT 03/25/2025 5:43 AM EDT Nereida WARD HEMATOLOGY ORDERABLES Final Resu lt Performing Organization Address [facility] Phone Number [facility] [address] [place] [address] * (ABNORMAL) Basic Metabolic Panel (03/25/2025 4:30 AM EDT) Glucose 93 65 - 100 mg/dL 03/25/2025 4:30 AM EDT [facility] BUN 13 7 - 17 mg/dL 03/25/2025 4:30 AM EDT [facility] Creatinine 0.70 0.52 - 1.04 mg/dL 03/25/2025 4:30 AM EDT [facility] Sodium 130(L) 135 - 145 mEq/L 03/25/2025 4:30 AM EDT [facility] Potassium 3.8 3.6 - 5.0 mEq/L 03/25/2025 4:30 AM EDT [facility] Chloride 102 98 - 107 mEq/L 03/25/2025 4:30 AM EDT [facility] CO2 22 22 - 32 mEq/L 03/25/2025 4:30 AM EDT [facility] Calcium 7.8(L) 8.4 - 10.2 mg/dL 03/25/2025 4:30 AM EDT [facility] Est, Glom Filt Rate 91 >60 mL/min/1.7 3m2 03/25/2025 4:30 AM EDT [facility] Comment: GFR calculated using CKD-EPI (2020) formula. Stage 1 Kidney damage (e.g., protein in the urine) with normal GFR >=90 Stage 2 Kidney damage with mild decrease in GFR 60-89 Stage 3a Moderate decrease in GFR 45-59 Stage 3b Moderate decrease in GFR 30-44 Stage 4 Severe reduction in GFR 15-29 Stage 5 Kidney failure <15 Blood (Blood Plasma) 03/25/2025 4:30 AM EDT 03/25/2025 5:42 AM EDT Nereida WARD CHEMISTRY ORDERABLES Final Resul t Performing Organization Address City/State/[facility] Co de Phone Number [facility] [address] [phone] * XR KNEE RIGHT (1-2 VIEWS) (03/24/2025 1:55 PM EDT) Anatomical Region Laterality Modality Thigh, Knee, Leg Digital Radiogr aphy 03/24/2025 1:55 PM EDT Impressions 03/24/2025 5:45 PM EDT Arthroplasty without complication. Narrative 03/24/2025 5:45 PM EDT EXAM: XR KNEE RIGHT (1-2 VIEWS) HISTORY: TECH NOTES: s/p right TKA s/p right TKA COMPARISON: None. TECHNIQUE: 2 views. FINDINGS: Arthroplasty without complication. Report electronically signed by: Dr. Lisa Rondon Procedure Note Lisa Rondon DO - 03/24/2025 EXAM: XR KNEE RIGHT (1-2 VIEWS) HISTORY: TECH NOTES: s/p right TKA s/p right TKA COMPARISON: None. TECHNIQUE: 2 views. FINDINGS: Arthroplasty without complication. Report electronically signed by: Dr. Lisa Rondon IMPRESSION: Arthroplasty without complication. us Nereida WARD [facility] DI[facility]NOSTIC IMAGING ORDERABLE S Final Result * POCT Glucose (03/24/2025 8:49 AM EDT) POC Glucose 101 03/24/2025 8:49 AM EDT [facility] Blood Whole 03/24/2025 8:49 AM EDT 03/24/2025 8:49 AM EDT Narrative [facility] - 03/24/2025 8:50 AM EDT Ordered by an unspecified provider us Unknown Provider Result POINT OF CARE TEST ORDER LEANA Final Result Performing Organization Address City/State/[facility] Co de Phone Number [facility] [address] [place], [place] [id number] documented in this encounter Visit Diagnoses Diagnosis S/P total knee arthroplasty, right- Primary S/P total knee arthroplasty, right documented in this encounter Admitting Diagnoses Diagnosis S/P total knee arthroplasty, right documented in this encounter Administered Medications Inactive Administered Medications - up to 3 most recent administrations Medication Order MAR Action Action Date Dose Rate Site 0.9 % sodium chloride infusion IntraVENous, at 80 mL/hr, CONTINUOUS, Starting on Tracy 03/24/25 at 1430, Convert to saline lock once PO intake >500mL in 8 hours, Post-op New Bag 03/24/2025 2:40 PM EDT 80 m L/hr acetaminophen (TYLENOL) tablet 1,000 mg 1,000 mg, Oral, ONCE, 1 dose, On Tracy 03/24/25 at 0830, Administer 60 minutes prior to surgery., Pre-op (day of surgery) Given 03/24/2025 8:45 AM EDT 1,000 mg acetaminophen (TYLENOL) tablet 650 mg 650 mg, Oral, EVERY 6 HOURS, First dose on Tracy 03/24/25 at 1430, Until Discontinued, Maximum dose of acetaminophen is 4000 mg from all sources in 24 hours., Post-op Given 03/26/2025 8:13 AM EDT 650 mg Given 03/26/2025 3:01 AM EDT 650 mg Given 03/25/2025 7:52 PM EDT 650 mg aspirin EC tablet 325 mg 325 mg, Oral, DAILY, First dose on Fri03/25/25 at 0900, Until Discontinued, Do not crush or break., Post-op Given 03/26/2025 8:13 AM EDT 325 mg Given 03/25/2025 8:41 AM EDT 325 mg bisacodyl (DULCOLAX) EC tablet 5 mg 5 mg, Oral, DAILY PRN, Starting on Tracy 03/24/25 at 1413, Until 03/26/25 at 1523, Constipation, First line therapy for constipation., Post-op Given 03/25/2025 5:58 PM EDT 5 mg busPIRone (BUSPAR) tablet 5 mg 5 mg, Oral, 3 TIMES DAILY PRN, Starting on Tracy 03/24/25 at 1745, Until 03/26/25 at 1523, anxiety ceFAZolin (ANCEF) 2000 mg in dextrose 3 % 50 mL IVPB (duplex) 2,000 mg, IntraVENous, EVERY 8 HOURS, 2 doses, First dose (after last modification) on Tracy 03/24/25 at 2000, Last dose on Fri03/25/25 at 0400, Antimicrobial Indications: Surgical Prophylaxis, Post-op New Bag 03/25/2025 3:32 AM EDT 2,000 mg 100 mL/hr New Bag 03/24/2025 8:30 PM EDT 2,000 mg 100 mL/hr celecoxib (CELEBREX) capsule 100 mg 100 mg, Oral, ONCE, 1 dose, On Tracy 03/24/25 at 0830, Administer 60 minutes prior to surgery., Pre-op (day of surgery) Given 03/24/2025 8:45 AM EDT 100 mg diazePAM (VALIUM) tablet 5 mg 5 mg, Oral, ONCE, 1 dose, On Tracy 03/24/25 at 1400 Given 03/24/2025 1:35 PM EDT 5 mg diphenhydrAMINE (BENADRYL) capsule 25 mg 25 mg, Oral, EVERY 6 HOURS PRN, Starting on Tracy 03/24/25 at 1413, Until 03/26/25 at 1523, Itching, Post-op diphenhydrAMINE (BENADRYL) injection 25 mg 25 mg, IntraVENous, EVERY 6 HOURS PRN, Starting on Tracy 03/24/25 at 1413, Until 03/26/25 at 1523, Itching, Administer if oral route cannot be used., Post-op HYDROmorphone (DILAUDID) 2 MG/ML injection 1 dose, Starting on Tracy 03/24/25 at 1319, Until Tracy 03/24/25 at 1332, Anais Becerra: cabinet override, Anais Becerra: cabinet override HYDROmorphone HCl PF (DILAUDID) injection 1 mg 1 mg, IntraVENous, EVERY 10 MIN PRN, 2 doses, Starting on Tracy 03/24/25 at 1317, Until Tracy 03/24/25 at 1332, Pain Severe (7-10), For Phase I. If Phase II oral narcotics have been administered in the last 60 minutes, do not administer IV narcotics unless specifically approved by provider., PACU only Given 03/24/2025 1:32 PM EDT 1 mg Given 03/24/2025 1:22 PM EDT 1 mg lactated ringers infusion IntraVENous, at 125 mL/hr, CONTINUOUS, Starting on Tracy 03/24/25 at 0830, Pre-op (day of surgery) New Bag 03/24/2025 11:15 AM EDT 125 mL/hr NoRateChange 03/24/2025 10:42 AM EDT 125 mL/hr New Bag 03/24/2025 8:48 AM EDT 125 mL/hr levothyroxine (SYNTHROID) tablet 100 mcg 100 mcg, Oral, EVERY MORNING, First dose on Fri03/25/25 at 0700, Until Discontinued, Tube feeding (TF) interaction, obtain physician order to manage, recommend holding TF for 30 minutes before and after dose. Given 03/26/2025 6:35 AM EDT 100 mcg Given 03/25/2025 6:08 AM EDT 100 mcg magnesium oxide (MAG-OX) tablet 400 mg 400 mg, Oral, DAILY, First dose on Fri03/25/25 at 0900, Until Discontinued Given 03/26/2025 8:14 AM EDT 400 mg Given 03/25/2025 8:41 AM EDT 400 mg metoprolol succinate (TOPROL XL) extended release tablet 25 mg 25 mg, Oral, EVERY MORNING, First dose on Fri03/25/25 at 0900, Until Discontinued, Do not crush or chew. Given 03/26/2025 8:13 AM EDT 25 mg Given 03/25/2025 8:41 AM EDT 25 mg ondansetron (ZOFRAN) injection 4 mg 4 mg, IntraVENous, EVERY 6 HOURS PRN, Starting on Tracy 03/24/25 at 1413, Until 03/26/25 at 1523, Nausea, Vomiting, Administer if oral route cannot be used., Post-op ondansetron (ZOFRAN-ODT) disintegrating tablet 4 mg 4 mg, Oral, EVERY 8 HOURS PRN, Starting on Tracy 03/24/25 at 1413, Until 03/26/25 at 1523, Nausea, Vomiting, Post-op oxyCODONE (ROXICODONE) immediate release tablet 10 mg 10 mg, Oral, EVERY 4 HOURS PRN, Starting on Tracy 03/24/25 at 1413, Until 03/26/25 at 1523, Pain Severe (7-10), Post-op Given 03/26/2025 1:09 PM EDT 10 mg Given 03/26/2025 3:50 AM EDT 10 mg Given 03/25/2025 11:32 PM EDT 10 mg oxyCODONE (ROXICODONE) immediate release tablet 5 mg 5 mg, Oral, EVERY 4 HOURS PRN, Starting on Tracy 03/24/25 at 1413, Until 03/26/25 at 1523, Pain Moderate (4-6), allowed for higher pain score per patient request, Post-op Given 03/25/2025 7:51 PM EDT 5 mg Given 03/25/2025 3:34 PM EDT 5 mg Given 03/25/2025 11:31 AM EDT 5 mg polyethylene glycol (GLYCOLAX) packet 17 g 17 g, Oral, DAILY, First dose on Fri03/25/25 at 0900, Until Discontinued, Stir and dissolve one packet of powder (17 g) in any 4 to 8 ounces of beverage (cold, hot or room temperature) then drink, Post-op Given 03/26/2025 8:15 AM EDT 17 g Given 03/25/2025 8:42 AM EDT 17 g pregabalin (LYRICA) capsule 75 mg 75 mg, Oral, ONCE, 1 dose, On Tracy 03/24/25 at 0830, Administer 60 minutes prior to surgery., Pre-op (day of surgery) Given 03/24/2025 8:45 AM EDT 75 mg scopolamine (TRANSDERM-SCOP) transdermal patch 1 patch 1 patch, TransDERmal, Administer over 72 Hours, EVERY 72 HOURS, First dose on Tracy 03/24/25 at 0830, Delivers 1 mg over 3 days. Apply patch to hairless area behind the ear. Do NOT cut patch. Patch Applied 03/24/2025 8:47 AM EDT 1 patch Other sodium chloride 0.9 % bolus 1,000 mL 1,000 mL (13 mL/kg), IntraVENous, at 495.9 mL/hr, Administer over 121 Minutes, ONCE, On Fri03/25/25 at 0800, For 1 dose New Bag 03/25/2025 8:37 AM EDT 1,000 mLs 495.9 mL/hr sodium chloride tablet 2 g 2 g, Oral, 2 TIMES DAILY WITH MEALS, First dose on Fri03/25/25 at 1700, Until Discontinued Given 03/26/2025 8:13 AM EDT 2 g Given 03/25/2025 4:53 PM EDT 2 g documented in this encounter Active and Recently Administered Medications Times are shown in EDT. Scheduled Medication Order 03/24/2025 03/25/2025 03/26/2025 acetaminophen (TYLENOL) tablet 1,000 mg (COMPLETED) 1,000 mg, Oral, ONCE, 1 dose, On Tracy 03/24/25 at 0830, Administer 60 minutes prior to surgery., Pre-op (day of surgery) 0845 (Given - Provider: Angie Santos RN) acetaminophen (TYLENOL) tablet 650 mg 650 mg, Oral, EVERY 6 HOURS, First dose on Tracy 03/24/25 at 1430, Until Discontinued, Maximum dose of acetaminophen is 4000 mg from all sources in 24 hours., Post-op 1439 (Given - Provider: Eunice Cazares RN)2032 (Given - Provider: Karin Chew, KARLENE) 0205 (Given - Provider: Karin Chew, RN)0841 (Given - Provider: Rhona Childers, KARLENE)1405 (Given - Provider: Rhona Childers RN)1952 (Given - Provider: Don Prieto, KARLENE) 0301 (Given - Provider: Don Prieto, KARLENE)0813 (Given - Provider: Anya Flores RN) aspirin EC tablet 325 mg 325 mg, Oral, DAILY, First dose on Fri03/25/25 at 0900, Until Discontinued, Do not crush or break., Post-op 0841 (Given - Provider: Rhona Childers RN) 0813 (Given - Provider: Anya Flores RN) ceFAZolin (ANCEF) 2000 mg in dextrose 3 % 50 mL IVPB (duplex) (COMPLETED) 2,000 mg, IntraVENous, [employer] TO [employer].R., 1 dose, On Tracy 03/24/25 at 0830, Antimicrobial Indications: Surgical Prophylaxis, Administer within 1 hour prior to incision. Recommend to repeat in 3-4 hours after initial dose if still intra-op., Pre-op (day of surgery) 1057 (Given - Provider: Sinan Khan APRN - [facility]RE[facility] FLAGMAN) ceFAZolin (ANCEF) 2000 mg in dextrose 3 % 50 mL IVPB (duplex) (COMPLETED) 2,000 mg, IntraVENous, EVERY 8 HOURS, 2 doses, First dose (after last modification) on Tracy 03/24/25 at 2000, Last dose on Fri03/25/25 at 0400, Antimicrobial Indications: Surgical Prophylaxis, Post-op 2030 (New Bag - Provider: Karin Chew RN)210 (Stopped - Provider: Karin Chew, KARLENE) 0332 (New Bag - Provider: Karin Chew, KARLENE)0415 (Stopped - Provider: Karin Chew RN) celecoxib (CELEBREX) capsule 100 mg (COMPLETED) 100 mg, Oral, ONCE, 1 dose, On Fri03/24/25 at 0830, Administer 60 minutes prior to surgery., Pre-op (day of surgery) 0845 (Given - Provider: Angie Santos, KARLENE) diazePAM (VALIUM) tablet 5 mg (COMPLETED) 5 mg, Oral, ONCE, 1 dose, On Fri03/24/25 at 1400 1335 (Given - Provider: Anais Becerra RN) ketorolac-BUPivacaine 60-150 mg/50mL ML injection 50 mL 50 mL, Other, ONCE, 1 dose, On Fri03/23/25 at 0830 levothyroxine (SYNTHROID) tablet 100 mcg 100 mcg, Oral, EVERY MORNING, First dose on Fri03/25/25 at 0700, Until Discontinued, Tube feeding (TF) interaction, obtain physician order to manage, recommend holding TF for 30 minutes before and after dose. 0608 (Given - Provider: Karin Chew RN) 0635 (Given - Provider: Don Prieto RN) magnesium oxide (MAG-OX) tablet 400 mg 400 mg, Oral, DAILY, First dose on Fri03/25/25 at 0900, Until Discontinued 0841 (Given - Provider: Rhona Childers RN) 0814 (Given - Provider: Anya Flores RN) metoprolol succinate (TOPROL XL) extended release tablet 25 mg 25 mg, Oral, EVERY MORNING, First dose on Fri03/25/25 at 0900, Until Discontinued, Do not crush or chew. 0841 (Given - Provider: Rhona Childers RN) 0813 (Given - Provider: Anya Flores RN) polyethylene glycol (GLYCOLAX) packet 17 g 17 g, Oral, DAILY, First dose on Fri03/25/25 at 0900, Until Discontinued, Stir and dissolve one packet of powder (17 g) in any 4 to 8 ounces of beverage (cold, hot or room temperature) then drink, Post-op 0842 (Given - Provider: Rhona Childers RN) 0815 (Given - Provider: Anya Flores RN) pregabalin (LYRICA) capsule 75 mg (COMPLETED) 75 mg, Oral, ONCE, 1 dose, On Fri03/24/25 at 0830, Administer 60 minutes prior to surgery., Pre-op (day of surgery) 0845 (Given - Provider: Angie Santos, KARLENE) scopolamine (TRANSDERM-SCOP) transdermal patch 1 patch 1 patch, TransDERmal, Administer over 72 Hours, EVERY 72 HOURS, First dose on Tracy 03/24/25 at 0830, Delivers 1 mg over 3 days. Apply patch to hairless area behind the ear. Do NOT cut patch. 0847 (Patch Applied - Provider: Angie Santos RN - Comment: behind R ear) 1322 (Due: Patch Removed - Provider: Automatic Discharge Provider - Comment: Time automatically adjusted from order being discontinued) sodium chloride 0.9 % bolus 1,000 mL (COMPLETED) 1,000 mL (13 mL/kg), IntraVENous, at 495.9 mL/hr, Administer over 121 Minutes, ONCE, On Fri03/25/25 at 0800, For 1 dose 0837 (New Bag - Provider: Rhona Childers RN)1039 (Stopped - Provider: Rhona Childers RN) sodium chloride flush 0.9 % injection 5-40 mL 5-40 mL, IntraVENous, EVERY 12 HOURS SCHEDULED (2 times per day), First dose on Tracy 03/24/25 at 2100, Until Discontinued, For Line Patency: Peripheral IV = 5 mL; Midline or Central Line = 10 mL/lumen. If following IV push medication, administer flush at same rate as the IV push. Flush volume is determined by type of infusion therapy being given. For non-viscous solutions use: Peripheral IV = 5 mL Midline or Central Line = 10 mL/lumen For viscous solutions (i.e. blood components, parenteral nutrition, contrast media, or after obtaining blood sample) use: Peripheral IV = 10 mL Midline or Central Line = 20 mL/lumen, Post-op 2226 (Not Given - Provider: Karin Chew RN - Reason: IV Fluid Infusing) 0842 (Held - Provider: Rhona Childers RN - Reason: IV Fluid Infusing) 0034 (Not Given - Provider: Don Prieto RN - Reason: Loss of IV access)0820 (Held - Provider: Anya Flores RN - Reason: Loss of IV access) sodium chloride tablet 2 g 2 g, Oral, 2 TIMES DAILY WITH MEALS, First dose on Fri03/25/25 at 1700, Until Discontinued 1653 (Given - Provider: Rhona Childers, KARLENE) 0813 (Given - Provider: Anya Flores, KARLENE) Continuous Medication Order 03/24/2025 03/25/2025 03/26/2025 0.9 % sodium chloride infusion IntraVENous, at 80 mL/hr, CONTINUOUS, Starting on Tracy 03/24/25 at 1430, Convert to saline lock once PO intake >500mL in 8 hours, Post-op 1440 (New Bag - Provider: Eunice Cazares, KARLENE) 1258 (Stopped - Provider: Anya Flores RN) lactated ringers infusion (CANCELED) IntraVENous, at 125 mL/hr, CONTINUOUS, Starting on Tracy 03/24/25 at 0830, Pre-op (day of surgery) 0848 (New Bag - Provider: Angie Santos RN)1042 (NoRateChange - Provider: LETY Gonzales CRNA)1115 (New Bag - Provider: LETY Gonzales CRNA)1412 (Stopped - Provider: Eunice Cazares RN - Comment: [Order ends at this time. Document the following action when infusion is complete: Stopped]) PRN Medication Order 03/24/2025 03/25/2025 03/26/2025 0.9 % sodium chloride infusion IntraVENous, at 5-250 mL/hr, PRN, if patient receiving piggyback infusions and maintenance fluids are not ordered, Starting on Tracy 03/24/25 at 1413, For piggyback infusion, administer at same rate as piggyback for a total of 25 mL. Enter 25 mL into dose field and piggyback rate into rate field of order. If piggyback is infusing at a rate less than 100 mL/hr, enter 25 mL into dose field and 100 mL/hr into rate field of order., Post-op bisacodyl (DULCOLAX) EC tablet 5 mg 5 mg, Oral, DAILY PRN, Starting on Tracy 03/24/25 at 1413, Until 03/26/25 at 1523, Constipation, First line therapy for constipation., Post-op 1758 (Given - Provider: Rhona Childers RN) busPIRone (BUSPAR) tablet 5 mg 5 mg, Oral, 3 TIMES DAILY PRN, Starting on Tracy 03/24/25 at 1745, Until 03/26/25 at 1523, anxiety diphenhydrAMINE (BENADRYL) capsule 25 mg(Linked Group 1) 25 mg, Oral, EVERY 6 HOURS PRN, Starting on Tracy 03/24/25 at 1413, Until 03/26/25 at 1523, Itching, Post-op diphenhydrAMINE (BENADRYL) injection 25 mg(Linked Group 1) 25 mg, IntraVENous, EVERY 6 HOURS PRN, Starting on Tracy 03/24/25 at 1413, Until 03/26/25 at 1523, Itching, Administer if oral route cannot be used., Post-op HYDROmorphone HCl PF (DILAUDID) injection 1 mg (COMPLETED) 1 mg, IntraVENous, EVERY 10 MIN PRN, 2 doses, Starting on Tracy 03/24/25 at 1317, Until [place] 03/24/25 at 1332, Pain Severe (7-10), For Phase I. If Phase II oral narcotics have been administered in the last 60 minutes, do not administer IV narcotics unless specifically approved by provider., PACU only 1322 (Given - Provider: Anais Becerra, KARLENE)1332 (Given - Provider: Anais Becerra, KARLENE) ondansetron (ZOFRAN) injection 4 mg(Linked Group 2) 4 mg, IntraVENous, EVERY 6 HOURS PRN, Starting on Tracy 03/24/25 at 1413, Until 03/26/25 at 1523, Nausea, Vomiting, Administer if oral route cannot be used., Post-op ondansetron (ZOFRAN-ODT) disintegrating tablet 4 mg(Linked Group 2) 4 mg, Oral, EVERY 8 HOURS PRN, Starting on Tracy 03/24/25 at 1413, Until 03/26/25 at 1523, Nausea, Vomiting, Post-op oxyCODONE (ROXICODONE) immediate release tablet 10 mg(Linked Group 3) 10 mg, Oral, EVERY 4 HOURS PRN, Starting on Tracy 03/24/25 at 1413, Until 03/26/25 at 1523, Pain Severe (7-10), Post-op 190 (Given - Provider: Karin Chew RN) 0243 (Given - Provider: Lizzy Spence RN)0631 (Given - Provider: Karin Chew RN)1131 (See Alternative - Provider: Rhona Childers RN)1534 (See Alternative - Provider: Rhona Childers, KARLENE)195 (See Alternative - Provider: Don Prieto RN)2332 (Given - Provider: Don Prieto RN) 0350 (Given - Provider: Don Prieto RN)1309 (Given - Provider: Anya Flores RN) oxyCODONE (ROXICODONE) immediate release tablet 5 mg(Linked Group 3) 5 mg, Oral, EVERY 4 HOURS PRN, Starting on Tracy 03/24/25 at 1413, Until 03/26/25 at 1523, Pain Moderate (4-6), allowed for higher pain score per patient request, Post-op 190 (See Alternative - Provider: Karin Chew RN) 0243 (See Alternative - Provider: Lizzy Spence RN)0631 (See Alternative - Provider: Karin Chew RN)1131 (Given - Provider: Rhona Childers RN)153 (Given - Provider: Rhona Childers RN)1950 (Given - Provider: Don Prieto RN)2332 (See Alternative - Provider: Don Prieto RN) 0350 (See Alternative - Provider: Don Prieto RN)1309 (See Alternative - Provider: Anya Flores RN) pregabalin (LYRICA) capsule 75 mg 75 mg, Oral, EVERY 12 HOURS PRN, Starting on Tracy 03/24/25 at 1413, Until 03/26/25 at 1523, breakthrough pain senna (SENOKOT) tablet 8.6 mg 8.6 mg (1 tablet), Oral, DAILY PRN, Starting on Tracy 25 at 1413, Until 03/26/25 at 1523, Constipation, Second line therapy for constipation, After 24 hours, if no result from first line PRN therapy, give second line therapy in combination with first line therapy., Post-op sodium chloride flush 0.9 % injection 5-40 mL 5-40 mL, IntraVENous, PRN, Starting on Tracy 6 at 1413, Until 03/26/25 at 1523, Line Care, After every IV line use, For Line Patency: Peripheral IV = 5 mL; Midline or Central Line = 10 mL/lumen. If following IV push medication, administer flush at same rate as the IV push. Flush volume is determined by type of infusion therapy being given. For non-viscous solutions use: Peripheral IV = 5 mL Midline or Central Line = 10 mL/lumen For viscous solutions (i.e. blood components, parenteral nutrition, contrast media, or after obtaining blood sample) use: Peripheral IV = 10 mL Midline or Central Line = 20 mL/lumen, Post-op Linked Groups Order Group 1: diphenhydrAMINE (BENADRYL) capsule 25 mgJump to med 25 mg, Oral, EVERY 6 HOURS PRN, Starting on Tracy 03/24/25 at 1413, Until 03/26/25 at 1523, Itching, Post-op Or diphenhydrAMINE (BENADRYL) injection 25 mgJump to med 25 mg, IntraVENous, EVERY 6 HOURS PRN, Starting on Tracy 03/24/25 at 1413, Until 03/26/25 at 1523, Itching, Administer if oral route cannot be used., Post-op Group 2: ondansetron (ZOFRAN-ODT) disintegrating tablet 4 mgJump to med 4 mg, Oral, EVERY 8 HOURS PRN, Starting on Tracy 03/24/25 at 1413, Until 03/26/25 at 1523, Nausea, Vomiting, Post-op Or ondansetron (ZOFRAN) injection 4 mgJump to med 4 mg, IntraVENous, EVERY 6 HOURS PRN, Starting on Tracy 03/24/25 at 1413, Until 03/26/25 at 1523, Nausea, Vomiting, Administer if oral route cannot be used., Post-op Group 3: oxyCODONE (ROXICODONE) immediate release tablet 5 mgJump to med 5 mg, Oral, EVERY 4 HOURS PRN, Starting on Tracy 03/24/25 at 1413, Until 03/26/25 at 1523, Pain Moderate (4-6), allowed for higher pain score per patient request, Post-op Or oxyCODONE (ROXICODONE) immediate release tablet 10 mgJump to med 10 mg, Oral, EVERY 4 HOURS PRN, Starting on Tracy 03/24/25 at 1413, Until 03/26/25 at 1523, Pain Severe (7-10), Post-op documented in this encounter Additional Health Concerns Assessment Noted Time A fall risk assessment has been complete d for the patient 03/23/2018 10:41 AM EDT A Body Mass Index follow-up plan has been documented for the patient 07/23/2021 11:10 AM EDT documented as of this encounter Care Teams Staff Trainer Relationship Specialty Start Date End Date Janina Castro MD PCP - General Family Medicine 04/10/18 documented as of this encounter
--- OUTSIDE RECORDS SUMMARY | 2025-03-24 10:04 | XMS_ITS | Encounter Summary ---
Author Organization [facility] Address [address] [place] [address] Care Team Providers Care [employer] Director Name Role Phone Janina Castro MD Primary Care Provider [phone] Reason for Visit * Auth/Cert Specialty Diagnoses / Procedures Referred By Chevy moreland Referred To Contact Diagnoses Right knee pain, unspecified chronicity Osteoarthritis of right knee, unspecified osteoarthritis type Right knee pain, unspecified chronicity [M25.561] Osteoarthritis of right knee, unspecified osteoarthritis type [M17.11] Procedures MD ARTHRP KNE CONDYLE&PLATU MEDIAL&LAT COMPARTMENTS RIGHT TOTAL KNEE ARTHROPLASTY Jeramie Younger MD [address] [place] [address] Phone: tel: fax: [facility] Phone: tel: Referral ID Status Reason Start Date Expiration Date Visits Re quested Visits Authorized [id number] 1 1 Encounter Details Date Type Department Care Team (Late st Contact Info) Description 03/24/2025 10:04 AM EDT - 03/24/2025 12:39 PM EDT Surgery [facility] OR [address] [place] [address] Jeramie Younger MD [address] [place] [address] RIGHT TOTAL KNEE ARTHROPLASTY Surgery Details Date/Time Status Location OR Service Patient Class Case Cl ass Case Type Trauma Case? 03/24/2025 10:04 AM Posted [facility] OR OR 03 Orthopedics Outpatient Surgery Elective No Panel 1 Procedure LRB Anes Op Region Wound Class Comments RIGHT TOTAL KNEE ARTHROPLASTY Right General Knee Class I Clean Surgeon Surgeon Role Service Panel Jeramie Younger MD Primary Orthopedics 1 Case Notes SHELLIE Benavides 02/24/25[facility] addedEmail /CHING/KATHLEEN/AP/JY/JE- 0907 sent Special Needs SHELLIE Benavides 02/24/25[facility] added Email GREGORY/CHING/KATHLEEN/LORA/HARI/JE- 0907 sent documented in this encounter Social History Tobacco Use Types Packs/Day Years Used Date Smoking Tobacco: Former Smokeless Tobacco: Never Alcohol Use Standard Drinks/Week Comments No 0 (1 standard drink = 0.6 oz pur e alcohol) [facility] Utilities Answer Date Recorded In the past [...] any time in the past 12 m [facility], were you homeless or living in a jail (including now)? No 03/24/2025 Food Insecurity Answer [...] Sign Reading Time Taken Comments Blood Pressure 168/71 03/24/2025 8:25 AM EDT Pulse 52 03/24/2025 8:25 AM EDT Temperature 36.6 C (97.8 F) 03/24/2025 8:25 AM EDT Respiratory Rate 18 03/24/2025 8:25 AM EDT Oxygen Saturation 96% 03/24/2025 8:25 AM EDT Inhaled Oxygen Concentration - - Weight 77.1 kg (169 lb 14.4 oz) 03/24/2025 8:25 AM EDT Height 162.6 cm (5' 4 ) 03/24/2025 8:25 AM EDT Body Mass Index 31.37 03/26/2025 3:50 AM EDT documented in this encounter Discharge Summaries * Brandon Jose MD - 03/26/2025 11:50 AM EDT Physician Discharge Summary Patient ID: Nicolette Regalado [id number] y.o. 1950 Admit date: 03/24/2025 Discharge [...] Your Medications These medications were sent to [id number] [phone] [place] [phone] aspirin 325 MG tablet oxyCODONE 5 MG immediate release tablet pregabalin 75 MG capsule Discharge Instructions: Please return to hospital if you have fever, chills, night sweats, chest pain, shortness of breath, or any other new concerning symptoms. Parts of this note may have been dictated utilizing voice recognition software. This may lead to occasional errors in egg sorter. Care is taken to minimize these errors. [...] ice pack to prevent frostbite Contact [facility] office if Increased redness, swelling, drainage of [...] indicate a reaction to a medication. - [facility] Follow up with Surgeon at scheduled appointment [...] MG tablet Take 1 tablet by mouth [place]-3 Fatty Acids (FISH OIL) 1000 MG capsule [...] Intake/Output Summary (Last 24 hours) at 03/26/2025 0783 Last data filed at 03/26/2025 0640 Gross [...] 8.3. Hemodynamically stable. Asymptomatic. DVT prophylaxis: ROBERTO hose, SCDs, Aspirin Venous duplex US right lower [...] plan. Jeramie Younger MD Orthopaedic Surgeon [facility] 03/28/2025 1:38 PM * Rhona Childers RN [...] the original note were not included. Facility/Department: [facility] MED [facility] Physical Therapy Inpatient Orthopaedic Evaluation Patient Name: Nciolette Regalado : 1950 (74 y.o.) CODE STATUS: Full Code Date of Service: 03/25/2025 DISCHARGE RECOMMENDATIONS Continue to assess pending progress, Outpatient PT PERTINENT MEDICAL HISTORY PAST MEDICAL HISTORY Diagnosis Date Adolescent scoliosis Bradycardia after surgery CAD (coronary artery disease) Cancer (HCC) 03/2018 ENDOMETRIAL Heart disease stent x2 in one artery History of heart artery stent 05/2017 TIMES 2 Hyperlipidemia Hypertension [place]ES [place] Hyperthyroidism IBS (irritable bowel syndrome) PONV (postoperative nausea and vomiting) Scoliosis Wears glasses PAST SURGICAL HISTORY Procedure Laterality Date BACK SURGERY 2014-06-26 low back CHOLECYSTECTOMY, LAPAROSCOPIC 11/28/2015 COLONOSCOPY 10/26/2014 CORONARY ANGIOPLASTY WITH STENT PLACEMENT 05/2017 2 CARDIAC STENTS HYSTERECTOMY (CERVIX STATUS UNKNOWN) 06/02/2018 Robotic with BSO KNEE SURGERY left torn meniscus MD OFFICE/OUTPT VISIT,PROCEDURE ONLY N/A 06/02/2018 XI ROBOTIC MODIFIED RADICAL HYSTERECTOMY, BSO, CYTOLOGIC WASHING, SENTINEL LYMPH NODE MAPPING AND BIOPSIES. performed by Farhad Mendez MD at [facility] OR REIMPLANT URETER IN BLADDER THYROIDECTOMY 05/2019 TUBAL LIGATION MEDICATIONS Current Facility-Administered Medications: sodium chloride 0.9 % bolus 1,000 mL, 1,000 mL, IntraVENous, Once, Nereida Romeo, PA, Last Rate: 495.9 mL/hr at 03/25/25 0837, 1,000 mL at 03/25/25 0837 scopolamine (TRANSDERM-SCOP) transdermal patch 1 patch, 1 patch, TransDERmal, Q72H, Nereida oRmeo, PA, 1 patch at 03/24/25 0847 0.9 % sodium chloride infusion, , IntraVENous, Continuous, Nereida Romeo, PA, Last Rate: 80 mL/hr at03/24/25 1440, New Bag at 03/24/25 1440 sodium chloride flush 0.9 % injection 5-40 mL, 5-40 mL, IntraVENous, 2 times per day, Agueda Nereida,PA sodium chloride flush 0.9 % injection 5-40 mL, 5-40 mL, IntraVENous, PRN, Ally Romeoil, PA 0.9 % sodium chloride infusion, , IntraVENous, PRN, Agueda, Nereida, PA acetaminophen (TYLENOL) tablet 650 mg, 650 [...] packet 17 g, 17 g, Oral, Daily, Nereida Romeo, PA, 17 g at 03/25/25 0842 bisacodyl [...] 25 mg, 25 mg, IntraVENous, Q6H PRN, Ally Romeoil, PA pregabalin (LYRICA) capsule 75 mg, 75 mg, Oral, Q12H PRN, Ally Romeoil, PA levothyroxine (SYNTHROID) tablet 100 mcg, 100 mcg, Oral, QAM, Ally Romeoil, PA, 100 mcg at 608 metoprolol succinate (TOPROL XL) extended release tablet 25 mg, 25 mg, Oral, QAM, Ally Romeoil, PA,25 mg at 03/25/25 0841 busPIRone (BUSPAR) [...] Level of Assist for Transfers: Independent Active Production Statistical Clerk: Yes Mode of Transportation: [employer] Occupation: Retired OBJECTIVE EXAMINATION BALANCE SITTING STATIC Good DYNAMIC Good STANDING STATIC Fair;- DYNAMIC -;Fair OBSERVATION Posture: Fair Observation: scoliosis of spine, pleasant, cooperative Pedal Pulse WFL [x] Diminished [] Capillary Refill WFL (< 2 seconds) [x] Impaired (>2 seconds) [] Rosado Present? Yes [] No [x] Sole Cementer? 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 [...] TERM GOALS Deferred secondary to acute LOS SENIOR LIVING GOALS Shelter Goal 1: patient to ascend/descend 1 steps with LRAD SBA to be able to get in/otu of home Shelter Goal 2: patient to ambulate 200' with LRAD mod I to ambulate household distances Shelter Goal 3: patient to ascend/descend full flight of steps with handrail SBA to access secondfloor Shelter Goal 4: patient to perofrm supine<>sit mod IND to be able to get in/out of bed Shelter Goal 5: patient to increase R knee AROM to 0-120 degrees for ease of transfers and mobility Additional Goals?: Yes lobsterman goal 6: patient to increase R knee [...] Rising from sitting: moderate (2) Bending to floor/apple picking supervisor an object: Severe (3) Raw Score Jr MIRLANDE. Knee Survey Score: KOOS JR Total Interval Score (0-100 Scale): 47.48 SAFETY Type of Devices: Gait belt;Left in chair;All fall risk precautions in place;Call light within reach;Chair alarm in place;Patient at risk for falls ' THERAPY TIME/CHARGES Time In 704 Time Out 0814 Minutes 69 Charges Units Minutes Low Complexity Evaluation Moderate Complexity Evaluation 1 15 High Complexity Evaluation Gait Training 1 14 Self-care/Home management Therapeutic Activity 1 10 Therapeutic Exercise 1 15 Neuro Re-education Manual Therapy Vasopneumatic Device 1 15 E-stim Poonam Crawley, PT, DPT, AIB-VR/CON License #[id number] No co-evaluation completed. Cosigned by Jeramie Younger [...] Hgb 9.1. Hemodynamically stable. Asymptomatic. DVT prophylaxis: ROBERTO ryan, [...] plan. Jeramie Younger MD Orthopaedic Surgeon [facility] 03/28/2025 1:37 PM * Poonam Crawley PT - 03/24/2025 3:13 PM EDT Images [...] Crawley PT , DPT, AIB-VR/CON, CSRS License #[id number] * Nga Bai RN - 03/24/2025 10:35 [...] bathe. Limit make-up and remove dark nail slovenian if applicable. Bring any braces, assistive devices, [...] before please call the surgery center at [phone] ext [phone] by 4pm. Discharge discussed. Verbalized understanding acknowledged. VTE: risk. Educational material to be given to patient. documented in this encounter Plan of Treatment Upcoming Encounters Date Type Department Care Team (Late st Contact Info) Description 05/16/2025 11:10 AM EDT Office Visit [facility] Part of [address] [place] [address] Shelby Castillo APRN - KYLIE[address] [place] [address] yearly--last seen by Dr Gutierrez Pending Results [...] (1-2 VIEWS) Routine 03/24/2025 1:55 PM EDT MD ARTHRP KNE CONDYLE&PLATU MEDIAL&LAT COMPARTMENTS 03/24/2025 10:43 AM EDT Right knee pain, unspecified chronicity Osteoarthritis of right knee, unspecified osteoarthritis type Case Notes RANDA/ Makayla 02/24/25[facility] addedEmail GREGORY/CIHNG/KATHLEEN/LORA/JSusanne/JE- 0907 sent Special Needs SHELLIE Benavides 02/24/25[facility] added Email GREGORY/CHING/KATHLEEN/LORA/HARI/JE- 0907 sent POCT GLUCOSE Routine 03/24/2025 8:49 AM EDT documented in this encounter Results * (ABNORMAL) Hemoglobin and Hematocrit (03/26/2025 4:30 AM EDT) Hemoglobin 8.3(L) 12.0 - 16.0 g/dL 03/26/2025 4:30 AM EDT [facility] Hematocrit 24.5(L) 36.0 - 47.0 % 03/26/2025 4:30 AM EDT [facility] Blood (Blood Whole) 03/26/2025 4:30 AM EDT 03/26/2025 5:25 AM EDT us Nereida WARD HEMATOLOGY ORDERABLES Final Resu lt [facility] [address] [place] [address] * (ABNORMAL) Urinalysis with Reflex to Culture (03/25/2025 5:24 PM EDT) Color, UA Yellow 03/25/2025 5:24 PM EDT [facility] Clarity, UA Clear 03/25/2025 5:24 PM EDT [facility] Glucose, Ur Negative Negative mg/dL 03/25/2025 5:24 PM EDT [facility] Ketones, Urine Trace(A) Negative mg/dL 03/25/2025 5:24 PM EDT [facility] Bilirubin, Urine Negative Negative 03/25/2025 5:24 PM EDT [facility] Specific Raven, UA 1.015 1.005 - 1.030 03/25/2025 5:24 PM EDT [facility] pH, Urine 6.0 5.0 - 7.0 03/25/2025 5:24 PM EDT [facility] Blood, Urine Negative Negative 03/25/2025 5:24 PM EDT [facility] Protein, Urine Negative Negative mg/dL 03/25/2025 5:24 PM EDT [facility] Urobilinogen, Urine 0.2 E.U./dL <2.0 E.U./dL 03/25/2025 5:24 PM EDT [facility] Nitrate, UA Negative Negative 03/25/2025 5:24 PM EDT [facility] Leukocyte Esterase, Urine Negative Negative 03/25/2025 5:24 PM EDT [facility] Culture Indicated? No 03/25/2025 5:24 PM EDT [facility] WBC, UA 0-2 #/HPF 03/25/2025 5:24 PM EDT [facility] RBC, UA Rare #/HPF 03/25/2025 5:24 PM EDT [facility] Squam Epithel, UA Few #/LPF 03/25/2025 5:24 PM EDT [facility] MUCUS, URINE None Seen 03/25/2025 5:24 PM EDT [facility] BACTERIA, URINE None Seen 03/25/2025 5:24 PM EDT [facility] Urine 03/25/2025 5:24 PM EDT 03/25/2025 5:24 PM EDT us Brandon Jose MD URINE ORDERABLES Final Result [place] [id number] * (ABNORMAL) Basic Metabolic Panel w/ Reflex to MG (03/25/2025 3:52 PM EDT) Glucose 97 65 - 100 mg/dL 03/25/2025 3:52 PM EDT [facility] BUN 12 7 - 17 mg/dL 03/25/2025 3:52 PM EDT [facility] Creatinine 0.73 0.52 - 1.04 mg/dL 03/25/2025 3:52 PM EDT [facility] Sodium 126(L) 135 - 145 mEq/L 03/25/2025 3:52 PM EDT [facility] Comment: Result amended from (126) (03/25/2025 3:53 PM) to () by CD. Result amended from (Not Reported) (03/25/2025 3:53 PM) to (126) by CD. Potassium 3.8 3.6 - 5.0 mEq/L 03/25/2025 3:52 PM EDT [facility] Chloride 98 98 - 107 mEq/L 03/25/2025 3:52 PM EDT [facility] CO2 24 22 - 32 mEq/L 03/25/2025 3:52 PM EDT [facility] Calcium 7.8(L) 8.4 - 10.2 mg/dL 03/25/2025 3:52 PM EDT [facility] Est, Glom Filt Rate 87 >60 mL/min/1.7 3m2 03/25/2025 3:52 PM EDT [facility] Comment: GFR calculated using CKD-EPI (2020) formula. [...] PM EDT 03/25/2025 3:52 PM EDT Narrative [facility] - 03/25/2025 4:02 PM EDT Result corrected due to result entered in wrong spot. 03/25/2025 at 4:03 PM by JIMENEZ REYNOLDS. us Brandon Jose MD CHEMISTRY ORDERABLES Edited R esult - Final Performing Organization Address City/State/[facility] [place] [address] * US DUP LOWER EXTREMITY RIGHT ELVIRA [...] - 145 mEq/L 03/25/2025 2:35 PM EDT [facility] Blood (Blood Plasma) 03/25/2025 2:35 PM EDT 03/25/2025 2:35 PM EDT Nereida WARD CHEMISTRY [place] [address] * (ABNORMAL) Hemoglobin and Hematocrit (03/25/2025 4:30 AM EDT) Hemoglobin 9.1(L) 12.0 - 16.0 g/dL 03/25/2025 4:30 AM EDT [facility] Hematocrit 26.8(L) 36.0 - 47.0 % 03/25/2025 4:30 AM EDT [facility] Blood (Blood Whole) 03/25/2025 4:30 AM EDT 03/25/2025 5:43 AM EDT Nereida WARD HEMATOLOGY ORDERABLES Final Resu lt Performing Organization Address [facility]/ZIP Co de Phone Number [facility] [address] [place] [address] * (ABNORMAL) Basic Metabolic Panel (03/25/2025 4:30 AM EDT) [facility] Glucose 93 65 - 100 mg/dL 03/25/2025 4:30 AM EDT [facility] BUN 13 7 - 17 mg/dL 03/25/2025 4:30 AM EDT [facility] Creatinine 0.70 0.52 - 1.04 mg/dL 03/25/2025 4:30 AM EDT [facility] Sodium 130(L) 135 - 145 mEq/L 03/25/2025 4:30 AM EDT [facility] Potassium 3.8 3.6 - 5.0 mEq/L 03/25/2025 4:30 AM EDT [facility] Chloride 102 98 - 107 mEq/L 03/25/2025 4:30 AM EDT [facility] CO2 22 22 - 32 mEq/L 03/25/2025 4:30 AM EDT [facility] Calcium 7.8(L) 8.4 - 10.2 mg/dL 03/25/2025 4:30 AM EDT [facility] Est, Glom Filt Rate 91 >60 mL/min/1.7 3m2 03/25/2025 4:30 AM EDT [facility] Comment: GFR calculated using CKD-EPI [...] ORDERABLES Final Resul t Performing Organization Address [facility]/ZIP Co de Phone Number [facility] [address] [place] [address] * XR KNEE RIGHT (1-2 VIEWS) (03/24/2025 [...] IMPRESSION: Arthroplasty without complication. us Nereida WARD [facility] [facility] ORDERABLE S Final Result * POCT Glucose (03/24/2025 8:49 AM EDT) POC Glucose 101 03/24/2025 8:49 AM EDT [facility] Blood Whole 03/24/2025 8:49 AM EDT 03/24/2025 8:49 AM EDT Narrative [facility] - 03/24/2025 8:50 AM EDT Ordered by an unspecified provider us Unknown Provider Result POINT OF CARE TEST ORDER LEANA Final Result [facility] [address] [place] [address] documented in this encounter Visit Diagnoses Diagnosis S/P total knee arthroplasty, right- Primary Right knee pain, unspecified chronicity Osteoarthritis of right knee, unspecified osteoarthritis type documented in this encounter Admitting Diagnoses Diagnosis [...] Until Tracy 03/24/25 at 1332, Anais Becerra: jhoanainet prema, Anais Becerra: cabinet override HYDROmorphone HCl PF [...] 0845 (Given - Provider: Angie Santos, KARLENE) acetaminophen (TYLENOL) tablet 650 mg 650 mg, Oral, EVERY 6 HOURS, First dose on Tracy 03/24/25 at 1430, Until Discontinued, Maximum dose of acetaminophen is 4000 mg from all sources in 24 hours., Post-op 1439 (Given - Provider: Eunice Cazares, KARLENE)2032 (Given - Provider: Karin Chew, KARLENE) 0205 (Given - Provider: Karin Chew RN)0841 (Given - Provider: Rhona Childers, KARLENE)1405 (Given - Provider: Rhona Childers, KARLENE)1950 (Given - Provider: Don Prieto, KARLENE) 0301 (Given - Provider: Don Prieto RN)0813 (Given - Provider: Anya Flores, KARLENE) aspirin EC tablet 325 mg 325 mg, Oral, DAILY, First dose on Fri03/25/25 at 0900, Until Discontinued, Do not crush or break., Post-op 0841 (Given - Provider: Rhona Childers RN) 0813 (Given - Provider: Anya Flores, KARLENE) ceFAZolin (ANCEF) 2000 mg in dextrose 3 % 50 mL IVPB (duplex) (COMPLETED) 2,000 mg, IntraVENous, CELL PLASTERER TO O.R., 1 dose, On Tracy 03/24/25 at 0830, Antimicrobial Indications: Surgical Prophylaxis, Administer within 1 hour prior to incision. Recommend to repeat in 3-4 hours after initial dose if still intra-op., Pre-op (day of surgery) 1057 (Given - Provider: Sinan Khan APRN - ONCOLOGY ADMIN) ceFAZolin (ANCEF) 2000 mg in dextrose 3 % 50 mL IVPB (duplex) (COMPLETED) 2,000 mg, IntraVENous, EVERY 8 HOURS, 2 doses, First dose (after last modification) on Fri03/24/25 at 2000, Last dose on Fri03/25/25 at 0400, Antimicrobial Indications: Surgical Prophylaxis, Post-op 2030 (New Bag - Provider: Karin Chew, KARLENE)210 (Stopped - Provider: Karin Chew, KARLENE) 033 (New Bag - Provider: Karin Chew RN)0415 (Stopped - Provider: Karin Chew, KARLENE) celecoxib (CELEBREX) capsule 100 mg (COMPLETED) 100 mg, Oral, ONCE, 1 dose, On Fri03/24/25 at 0830, Administer 60 minutes prior to surgery., Pre-op (day of surgery) 0845 (Given - Provider: Angie Santos RN) diazePAM (VALIUM) tablet 5 mg (COMPLETED) 5 [...] Until Discontinued 0841 (Given - Provider: Rhona Childers, KARLENE) 0814 (Given - Provider: Anya Flores RN) metoprolol succinate (TOPROL XL) extended release tablet 25 mg 25 mg, Oral, EVERY MORNING, First dose on Fri03/25/25 at 0900, Until Discontinued, Do not crush or chew. 0841 (Given - Provider: Rhona Childers, RN) 0813 (Given - Provider: Anya Flores [...] 0845 (Given - Provider: Angie Santos RN) scopolamine (TRANSDERM-SCOP) transdermal patch 1 patch 1 patch, TransDERmal, Administer over 72 Hours, EVERY 72 HOURS, First dose on Fri03/24/25 at 0830, Delivers 1 mg over 3 [...] (2 times per day), First dose on Fri03/24/25 at 2100, Until Discontinued, For Line Patency: [...] Childers, KARLENE) 0813 (Given - Provider: Anya Flores RN) Continuous Medication Order 03/24/2025 03/25/2025 03/26/2025 0.9 % sodium chloride infusion IntraVENous, at 80 mL/hr, CONTINUOUS, Starting on Tracy 03/24/25 at 1430, Convert to saline lock once PO intake >500mL in 8 hours, Post-op 1440 (New Bag - Provider: Eunice Cazares RN) 1258 (Stopped - Provider: Anya Flores RN) lactated ringers infusion (CANCELED) IntraVENous, at 125 mL/hr, CONTINUOUS, Starting on Trayc 03/24/25 at 0830, Pre-op (day of surgery) 0848 (New Bag - Provider: Angie Santos RN)1042 (NoRateChange - Provider: Sinan Khan APRN - RONNIE)1115 (New Bag - Provider: LETY Gonzales CRNA)1412 [...] constipation., Post-op 1758 (Given - Provider: Rhona Childers, KARLENE) busPIRone (BUSPAR) tablet 5 mg 5 mg, [...] provider., PACU only 1322 (Given - Provider: Anasi Becerra, KARLENE)1332 (Given - Provider: Anais Becerra, [...] RN)1131 (See Alternative - Provider: Rhona Childers RN)153 (See Alternative - Provider: Rhona Childers RN)195 (See Alternative - Provider: Don Prieto RN)2332 [...] Chew RN)1131 (Given - Provider: Rhona Childers RN)1534 (Given - Provider: Rhona Childers RN)195 (Given - Provider: Don Prieto RN)2332 (See Alternative - Provider: Don Prieto RN) 0350 (See Alternative - Provider: Don Prieto, RN)1309 (See Alternative - Provider: Anya Flores RN) pregabalin (LYRICA) capsule 75 mg 75 mg, Oral, EVERY 12 HOURS PRN, Starting on Tracy 03/24/25 at 1413, Until 03/26/25 at 1523, breakthrough pain senna (SENOKOT) tablet 8.6 mg 8.6 mg (1 tablet), Oral, DAILY PRN, Starting on Tracy 03/24/25 at 1413, Until 03/26/25 at 1523, Constipation, Second line therapy for constipation, After 24 hours, if no result from first line PRN therapy, give second line therapy in combination with first line therapy., Post-op sodium chloride flush 0.9 % injection 5-40 mL 5-40 mL, IntraVENous, PRN, Starting on Tracy 03/24/25 at 1413, Until 03/26/25 at 1523, Line [...] EVERY 8 HOURS PRN, Starting on Tracy 6/12/25 at 1413, Until 03/26/25 at 1523, Nausea, [...] documented as of this encounter Care Teams [employer] Director Relationship Specialty Start Date End Date Janina Castro MD PCP - General Family Medicine 04/10/18 documented as of this encounter
--- OUTSIDE RECORDS SUMMARY | 2025-03-24 10:42 | XMS_ITS | Encounter Summary ---
Author Organization [facility] Address [address] [place] [address] Care Team Providers Care Carpet Jack Name Role Phone Janina Castro MD Primary Care Provider [phone] Reason for Visit * Auth/Cert Specialty Diagnoses / Procedures Referred By Contemy t Referred To Contact Diagnoses Right knee pain, unspecified chronicity Osteoarthritis of right knee, unspecified osteoarthritis type Right knee pain, unspecified chronicity [M25.561] Osteoarthritis of right knee, unspecified osteoarthritis type [M17.11] Procedures [place] ARTHRP KNE CONDYLE&PLATU MEDIAL&LAT COMPARTMENTS RIGHT TOTAL KNEE ARTHROPLASTY Jeramie Younger MD [facility] [place] [address] Phone: tel: fax: [facility] Phone: tel: Referral ID Status Reason Start Date Expiration Date Visits Re quested Visits Authorized [id number] 1 1 Encounter Details Date Type Department Care Team (Late st Contact Info) Description 03/24/2025 10:42 AM EDT Anesthesia Event [facility] OR [address] [place] [address] Sinan Khan APRN - MAINTENANCE SCHEDULER [address] [place], [place] [id number] Zoë Ocampo, TIME PIECE REPAIRER - MAINTENANCE SCHEDULER [address] [place] [address] Anesthesia Record Procedure Summary Procedure Name Responsible Anesthesiologist Anesthesia Start Time Anesthesia Stop Time RIGHT TOTAL KNEE ARTHROPLASTY (Right: Knee) Sinan Khan TIME PIECE REPAIRER - MAINTENANCE SCHEDULER 03/24/25 1042 03/24/25 1317 Events Date Time Event Comment 03/24/2025 0805 1042 An Start Location: {AN S tart Location:[id number]} 1042 An Start Data 1058 An Induction The patient was reevaluated immediately before anesthesia induction. 1059 An Intubation 1108 Anesthesia Ready 1310 An Extubation 1312 an stop data 1313 Handoff to RN Vital signs ar e within acceptable limits and stable, SBAR handoff/transfer of care to RN. Patient Handoff Status: Level of Response: -- Oxygen device: -- Airway Status: -- BP: -- Pulse: -- SpO2: -- Respirations: -- Temp: -- Temp Source: -- 1317 An Stop Meds Name Total tranexamic acid 1000 MG/10ML 1,000 mg fentaNYL 100 MCG/2ML 100 mcg fentaNYL (SUBLIMAZE) injection 100 mcg propofol 500 MG/50ML 1,417.52 mg ceFAZolin (ANCEF) 2000 mg in dextrose 3 % 50 mL IVPB (duplex) 2,000 mg lidocaine (PF) injection 2% 100 mg rocuronium (ZEMURON) injection 50 mg/5mL 50 mg midazolam (VERSED) injection 2 mg/2mL 2 mg glycopyrrolate (ROBINUL) 1 mg/5 mL injec tion 0.2 mg labetalol (NORMODYNE;TRANDATE) injection 5 mg/mL 5 mg acetaminophen (OFIRMEV) 10 mg/mL injecti on 1,000 mg sugammadex (BRIDION) 200 mg/2 mL injecti on 200 mg HYDROmorphone 2 MG/ML 1 mg lactated ringers infusion 1,000 mL * Agents Name O2 N2O Air Sevoflurane Inspired Sevoflurane * Blood No blood administrations on file. Lines, Drains, and Airways Type Details Placement Removal Incision 03/24/25; 1159; N; K nee; Right, Anterior; Dermabond, 4x4, tegaderm 03/24/25 1159 by Margo Solano RN Incision 06/02/18; 1156; Jamie gómez (7 sites); 03/26/25; 1321 06/02/18 1156 by Yari Stephens RN 03/26/25 1321 by Anya Flores RN Peripheral IV Placement date 03/24; Placement time 0848; Size 20 g; Orientation Left; Location Hand; Removal date 03/25/25; Removal time 2312; Removal reason Removed by patient 03/24/25 0848 by Angie Santos RN 03/25/25 2312 by Jo Ann Billingsley ETT Placement date 03/24; Placement time 1059 (created via procedure documentation); Preoxygenation Yes; Technique Direct laryngoscopy; Tube size 7 mm; Laryngoscope Munguia; Blade size 2; Location Oral; Grade view 1; Insertion attempts 1 03/24/25 1059 by Sinan Khan APRN - CRNA 03/24/25 1310 by Sinan Khan APRN - CRNA documented in this encounter Social History Tobacco Use Types Packs/Day Years Used Date Smoking Tobacco: Former Smokeless Tobacco: Never Alcohol Use Standard Drinks/Week Comments No 0 (1 standard drink = 0.6 oz pur e alcohol) [facility] Utilities Answer Date Recorded In the past 12 months has th e [employer], gas, oil, or water [employer] threatened to shut off services in your [...] any time in the past 12 m [facility], were you homeless or living in a prison (including now)? No 03/24/2025 Food Insecurity Answer [...] Description 05/16/2025 11:10 AM EDT Office Visit [facility] Part of [address] [place] [address] Shelby Castillo APRN - KYL[address] [place], [place] [id number] yearly--last seen by Dr Gutierrez documented as of this encounter Procedures Procedure Name Priority Date/Time Associated Diagnosis Comments ANESTHESIA AIRWAY Routine 03/24/2025 10: 59 AM EDT ANESTHESIA SPINAL BLOCK Routine 03/24/2025 10:50 AM EDT documented in this encounter Results * CHP AN ETT (03/24/2025 10:59 AM EDT) Narrative Sinan Khan APRN - MAINTENANCE SCHEDULER - 03/24/2025 10:59 AM EDT Sinan Khan APRN - MAINTENANCE SCHEDULER 03/24/2025 11:21 AM Airway Date/Time: 03/24/2025 10:59 AM Urgency: elective Airway not difficult General Information and Staff Patient location during procedure: OR Resident/MAINTENANCE SCHEDULER: Sinan Khan APRN - CRNA Performed: resident/MAINTENANCE SCHEDULER Performed by: Sinan Khan APRN - CRNA Authorized by: Sinan Khan APRN - CRNA Indications and Patient Condition Indications for airway management: anesthesia Spontaneous Ventilation: absent Sedation level: deep Preoxygenated: yes Patient position: sniffing MILS not maintained throughout Mask difficulty assessment: vent by bag mask Final Airway Details Final airway type: endotracheal airway Successful airway: ETT Cuffed: yes Successful intubation technique: direct laryngoscopy Facilitating devices/methods: intubating stylet Endotracheal tube insertion site: oral Blade: Munguia Blade size: #2 ETT size (mm): 7.0 Cormack-Lehane Classification: grade I - full view of glottis Placement verified by: chest auscultation and capnometry Measured from: lips Number of attempts at approach: 1 Ventilation between attempts: bag mask Additional Comments Teeth unchanged no Sinan Hdz CRNA ANESTHESIA ORDERABL ES Edited Result - Final * Spinal Block (03/24/2025 10:50 AM EDT) Narrative Sinan Khan APRN - CRNA - 03/24/2025 10:50 AM EDT Sinan Khan APRN - CRNA 03/24/2025 11:20 AM Spinal Block Patient location during procedure: OR End time: 03/24/2025 10:55 AM Reason for block: post-op pain management and at surgeon's request Staffing Performed: resident/MAINTENANCE SCHEDULER Resident/MAINTENANCE SCHEDULER: Sinan Khan APRN - CRNA Performed by: Sinan Khan APRN - CRNA Authorized by: Sinan Khan APRN - CRNA Spinal Block Patient position: sitting Prep: Betadine and site prepped and draped Patient monitoring: cardiac rn, continuous pulse ox, continuous capnometry and frequent blood pressure checks Approach: midline Location: L3/L4 Guidance: paresthesia technique Provider prep: mask and sterile gloves Local infiltration: lidocaine Needle Needle type: Deepikacke Needle gauge: 22 G Needle length: 3.5 in Assessment Attempts: 2 Additional Notes Failed spinal pt didn't tolerated Preanesthetic Checklist Completed: patient identified, IV checked, site marked, risks and benefits discussed, surgical/procedural consents, equipment checked, pre-op evaluation, timeout performed, anesthesia consent given, oxygen available, monitors applied/VS acknowledged, fire risk safety assessment completed and verbalized and blood product R/B/A discussed and consented Sinan Khan TIME PIECE REPAIRER - MAINTENANCE SCHEDULER ANESTHESIA ORDERABL ES Final Result documented in this encounter Visit Diagnoses Not on filedocumented in this encounter Administered Medications Inactive Administered Medications - up to 3 most recent administrations Medication Order MAR Action Action Date Dose Rate Site acetaminophen (OFIRMEV) infusion IntraVENous, ANES ONCE PRN, Starting on Tracy 03/24/25 at 1108, Until Tracy 03/24/25 at 1317, Intra-op Given 03/24/2025 11:08 AM EDT 1,000 mg ceFAZolin (ANCEF) 2000 mg in dextrose 3 % 50 mL IVPB (duplex) 2,000 mg, IntraVENous, CAR SALES CONSULTANT TO O.R., 1 dose, On Tracy 03/24/25 at 0830, Antimicrobial Indications: Surgical Prophylaxis, Administer within 1 hour prior to incision. Recommend to repeat in 3-4 hours after initial dose if still intra-op., Pre-op (day of surgery) Given 03/24/2025 10:57 AM EDT 2,000 mg fentaNYL (SUBLIMAZE) injection IntraVENous, ANES ONCE PRN, Starting on Tracy 03/24/25 at 1116, Until Tracy 03/24/25 at 1317, Intra-op Given 03/24/2025 11:16 AM EDT 100 mcg fentaNYL (SUBLIMAZE) injection IntraVENous, ANES ONCE PRN, Starting on Tracy 03/24/25 at 1050, Until Tracy 03/24/25 at 1050, Intra-op Given 03/24/2025 10:50 AM EDT 100 mcg Glycopyrrolate injection IntraVENous, ANES ONCE PRN, Starting on Tracy 03/24/25 at 1129, Until Tracy 03/24/25 at 1317, Intra-op Given 03/24/2025 12:20 PM EDT 0.1 mg Given 03/24/2025 11:29 AM EDT 0.1 mg HYDROmorphone (DILAUDID) injection IntraVENous, ANES ONCE PRN, Starting on Tracy 03/24/25 at 1303, Until Tracy 03/24/25 at 1317, Intra-op Given 03/24/2025 1:03 PM EDT 1 mg labetalol (NORMODYNE;TRANDATE) injection IntraVENous, ANES ONCE PRN, Starting on Tracy 03/24/25 at 1129, Until Tracy 03/24/25 at 1317, Intra-op Given 03/24/2025 11:29 AM EDT 5 mg lactated ringers infusion IntraVENous, at 125 mL/hr, CONTINUOUS, Starting on Tracy 03/24/25 at 0830, Pre-op (day of surgery) New Bag 03/24/2025 11:15 AM EDT 125 mL/hr NoRateChange 03/24/2025 10:42 AM EDT 125 mL/hr New Bag 03/24/2025 8:48 AM EDT 125 mL/hr lidocaine PF 2 % injection IntraVENous, ANES ONCE PRN, Starting on Tracy 03/24/25 at 1058, Until Tracy 03/24/25 at 1317, Intra-op Given 03/24/2025 10:58 AM EDT 100 mg midazolam (VERSED) injection IntraVENous, ANES ONCE PRN, Starting on Tracy 03/24/25 at 1050, Until Tracy 03/24/25 at 1050, Intra-op Given 03/24/2025 10:50 AM EDT 2 mg propofol infusion IntraVENous, ANES ONCE PRN, Starting on Tracy 03/24/25 at 1058, Until Tracy 03/24/25 at 1317, Intra-op New Bag 03/24/2025 11:00 AM EDT 120 mcg/kg/min 55.512 mL/hr Given 03/24/2025 10:58 AM EDT 150 mg rocuronium (ZEMURON) injection IntraVENous, ANES ONCE PRN, Starting on Tracy 03/24/25 at 1058, Until Tracy 03/24/25 at 1317, Intra-op Given 03/24/2025 10:58 AM EDT 50 mg sugammadex (BRIDION) 200 MG/2ML injection IntraVENous, ANES ONCE PRN, Starting on Tracy 03/24/25 at 1244, Until Tracy 03/24/25 at 1317, Intra-op Given 03/24/2025 12:44 PM EDT 200 mg tranexamic acid (CYKLOKAPRON) injection IntraVENous, ANES ONCE PRN, Starting on Tracy 03/24/25 at 1100, Until Tracy 03/24/25 at 1317, Intra-op Given 03/24/2025 11:00 AM EDT 1,000 mg documented in this encounter Additional Health Concerns Assessment Noted Time A fall risk assessment has been complete d for the patient 03/23/2018 10:41 AM EDT A Body Mass Index follow-up plan has been documented for the patient 07/23/2021 11:10 AM EDT documented as of this encounter Care Teams Carpet Jack Relationship Specialty Start Date End Date Janina Castro MD PCP - General Family Medicine 04/10/18 documented as of this encounter
--- OUTSIDE RECORDS SUMMARY | 2025-03-30 10:51 | XMS_ITS | Encounter Summary ---
Author Organization [facility] Address [address] [place] [address] Care Team Providers Care Refrigeration Engineer Name Role Phone Janina Castro MD Primary Care Provider Encounter Details Date Type Department Care Team (Late st Contact Info) Description 07/25/2021 Abstract [facility] [address] [place] [address] [address] [place] [address] Jeovany Betancourt MD [address] [place] [address] [address] [place] [address] Social History Tobacco Use Types [...] Description 05/16/2025 11:10 AM EDT Office Visit [facility] Part of [address] [place] [address] Shelby Castillo APRN - CNM [address] [place] [address] [address] [place] [address] yearly--last seen by Dr Gutierrez documented as of this encounter Visit Diagnoses Not on filedocumented in this encounter Additional Health Concerns Assessment Noted Time A fall risk assessment has been complete d for the patient 03/23/2018 10:41 AM EDT A Body Mass Index follow-up plan has been documented for the patient 07/23/2021 11:10 AM EDT documented as of this encounter Care Teams Refrigeration Engineer Relationship Specialty Start Date End Date Janina Castro MD PCP - General Family Medicine 04/10/18 documented as of this encounter
--- OUTSIDE RECORDS SUMMARY | 2025-03-30 10:51 | XMS_ITS | Patient Health Record ---
Author Organization [facility] Address [address] [place] [address] Care Team Providers Care Bulk Cooler Installer Name Role Phone Matthew Harman, Janina Primary Care Provider Unavail able RodríguezTommy bolanosen Unavailable [phone] Self, Referral Unavailable Unavailable MelaniePeggy Unavailable [phone] Jeramie Yougner Unavailable [phone] Jose Ramon Sung Unavailable [phone] Sylvian Snyder Unavailable [phone] Allergies No Known Allergies Results Component Value Reference Range Notes Surgery Scheduling (Not yet reviewed by provider) Interpretation: Performing Lab: Notes/Report: Primary Insurance Company: [employer] Medicare Surgeon/Assist: Jeramie Younger MD Surgery Location: [facility] Surgery Date & Time: March 24, 2025 Procedure: Right Total Knee Art hroplasty CPT 34476 Special Equipment: Tayler Persona Diagnosis: Right Knee Pain/OA Admission Type: outpatient Anesthesia Type/CPNB: Regional/Spinal Bed 23 hr Lab Location: [place] [facility] Assistant: Makayla Ruiz Physician: Janina Zhao Reason For Referral Reason NO AUTH REQ...............................03/24/25............................[facility] Right Total Knee Artrhroplasty @ [facility] Diagnosi s 1 Primary osteoarthritis of right knee (M1 7.11) Diagnosi s 2 Right knee pain (M25.561) Referral [facility] Gabriel wu Provider First Name Jeramie wu Provider Last Name Aren wu Provider Speciali ty Orthopedic Surgery Referred Upper Tractisatu traore [facility] Referred Address [address],[place], [place],[place] Procedur e 1 Arthroplasty Knee Total Med/Lat Compartm ents (17144) General Notes Makayla Ko 02/23/2025 01:13:40 PM >, Dana Sebastian 02/23/2025 01:16:10 PM > MEDICARE PARTS A & B ACTIVE AND EFFECTIVE 03/13/10 PER AVAILITY WITH [facility] SECONDARY. NO AUTHORIZATION REQUIRED. FAXED TO KERRY.Maikel Kelly 02/23/2025 02:05:39 PM > Referral Priority Routine Medications Medication SIG (Take, Route, Fr equency, Duration) Notes Start Date End Date Status Fish Oil Active Vitamin C Active Tylenol Active metoprolol Active aspirin Active Turmeric Active levothyroxine Active Glucosamine Chondroitin Active atorvastatin Active busPIRone Active nitroglycerin Active Vitamin D3 Active dicyclomine Active halobetasol topical Active Social History Tobacco Use: Social History [...] Problem Status W/U Status Risk Notes Problem Right knee pain (M25.561) Active confirmed Problem Osteoarthritis of knee (750337945) Primary osteoarthritis of right knee (M17.11) Active confirmed Vital Signs Height 5'1 in 03/21/2025 Weight 168 lbs 03/21/2025 BMI 31.74 03/21/2025 Encounters Encounter Location Date Provider Diagnosis [facility] [address] [place] [address] 02/16/2025 Peggy Navarro Acute pain of right knee M25.561 [facility] [address] [place] [address] 02/21/2025 Sylvain Snyder Primary osteoarthrit is of right knee M17.11 ; Right knee pain M25.561 and Encounter for pre-operative respiratory clearance Z01.811 [facility] [address] [place] [address] 03/21/2025 Jeramie Younger Primary osteoarthrit is of right knee M17.11 and Right knee pain M25.561 [facility] [address] [place] [address] 03/24/2025 Jeramie Younger Primary osteoarthrit is of right knee M17.11 [place] [address] [place] [address] 02/22/2025 Jose Ramon Sung [facility] [address] [place] [address] 02/22/2025 Jeramie Younger Assessments Encounter Date Diagnosis (ICD Code) Assessment Notes Treatment Notes Treatment Clinical Notes Section Notes 02/16/2025 Acute pain of right knee (ICD-10 - M25.561) 02/21/2025 Right knee pain (ICD-10 - M25.561) Right knee pain Right knee OA 02/21/2025 Primary osteoarthritis of right knee (ICD-10 - M17.11) Right knee pain Right knee OA 03/21/2025 Right knee pain (ICD-10 - M25.561) Right knee pain Right knee osteoarthritis 03/21/2025 Primary osteoarthritis of right knee (ICD-10 - M17.11) Right knee pain Right knee osteoarthritis 03/24/2025 Primary osteoarthritis of right knee (ICD-10 - M17.11) 02/21/2025 Encounter for pre-operative respiratory clearance (ICD-10 - Z01.811) Right knee pain Right knee OA 02/16/2025 [...] basis. Right knee pain Right knee OA 03/21/2025 Other Discussed nonoperative and operative interventions with patient. Patient continues to have significant right knee pain despite nonsurgical management including ice, anti-inflammatori es, activity modification, home exercise program, and injections. [...] pain Right knee osteoarthritis Plan Of Treatment Pending Test Test Name Order Date Chest 2 views - 33011 02/21/2025 PT/ INR - [id number] 02/21/2025 EKG 02/21/2025 CBC 02/21/2025 CMP 02/21/2025 Surgery Scheduling 02/23/2025 MRSA (Bilateral Nares) PCR 02/21/2025 APTT 02/21/2025 UA with Reflex C & S 02/21/2025 SCC- KNEE 4 VIEW RIGHT [id number] 02/16/2025 RSS- PT- s/p total knee 2-3 x per week f or 6 weeks 02/21/2025 Next Appt Details Provider Name:Jeramie Younger, 04/11/2025 09:50:00 AM, [address] [place] [address], [place], [address], Insurance Providers Payer Name Payer Address Payer Phone Subscriber Number Group Number Insured Name Patient Relationship to Insured Coverage Start Date Coverage End Date [employer] [address] [address] [place] [address] [id number] GARTH OLGUIN Self - patient is the insured 5 [facility] [address] [address] [place] [address] [phone] [id number] FRANTZ OLGUIN Spouse - patient is the spouse of the insured 5 Medical (General) History Medical History History ICD Code Heart attack: Yes Cancer: Yes Cancer Type: Other Chronic back pain:: Yes Heart Attack: Yes High Blood Pressure: Yes Asthma/COPD Hypothyroidism GI Problems: Surgical History Surgery Date(Month/Year) Right total knee replacement 03/24/2025 lt knee torn meniscus 2010 heart stents 2017 thyroidectomy 2019
--- OUTSIDE RECORDS SUMMARY | 2025-03-30 10:52 | XMS_ITS | Clinical Summary ---
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 9 Active tkrsykc-cdntuzfsh-n itamin D3 500 mg(1,250mg) -200 unit per tablet Take 2 tablets by mouth three times daily. 180 tablet 9 Active levothyroxine (SYNTHROID) 88 mcg tablet Take 1 tablet by mouth once daily. 90 tablet 3 0 Active Active Problems Problem Noted Date Diagnosed Date Mesenteric ischemia 01/08/2018 Primary hypercoagulable state 01/08/2018 Coronary artery disease invo lving chitina heart without angina pectoris 01/08/2018 Multinodular thyroid [...] N ot on file 09/17/2020 Data from: https://www.neighborhoodatlas.medicine.[facility].edu/. Last address used for calculation Not on [...] - 8.0 g/dL 05/12/2019 8:20 PM EDT [facility] Albumin 4.5 3.9 - 4.9 g/dL 05/12/2019 8:20 PM EDT [facility] Calcium 9.7 8.5 - 10.2 mg/dL 05/12/2019 8:[address] [facility] Bilirubin, Total 0.4 0.2 - 1.3 mg/dL 05/12/2019 8:[address] [facility] Alkaline Phosphatase 76 34 - 123 U/L 05/12/2019 8:[address] [facility] AST 23 13 - 35 U/L 05/12/2019 8:[address] [facility] Glucose 84 74 - 99 mg/dL 05/12/2019 8:[address] [facility] Comment: The [place] Diabetes Association (ADA) provides guidance for cutoff [...] Standards of Medical Care in Diabetes 2016, [place] Diabetes Association. Diabetes Care. 2016.39(Suppl 1). BUN 13 7 - 21 mg/dL 05/12/2019 8:[address] [facility] Creatinine 0.67 0.58 - 0.96 mg/dL 05/12/2019 8:[address] [facility] Sodium 141 136 - 144 mmol/L 05/12/2019 8:[address] [facility] Potassium 4.1 3.7 - 5.1 mmol/L 05/12/2019 8:[address] [facility] Chloride 104 97 - 105 mmol/L 05/12/2019 8:[address] [facility] CO2 26 22 - 30 mmol/L 05/12/2019 8:[address] [facility] Anion Gap 11 9 - 18 mmol/L 05/12/2019 8:[address] [facility] ALT 17 7 - 38 U/L 05/12/2019 8:[address] [facility] eGFR- >60 05/12/2019 8:[address] [facility] eGFR-All Other Races >60 . 05/12/2019 8:20 PM EDT [facility] Comment: eGFR (Estimated GFR) [...] Geno Minor MD LABORATORY Final Res ult [facility] [address] [place] [address] [facility] [address] [place] [address] from Last 3 Months or Most Recently Relevant to Health Maintenance Insurance MEDICARE MEDICARE [place] Care Teams Physics Teacher Relationship Specialty Start Date End Date Janina Castro MD [address] [place] [address] PCP - General Family Medicine 07/17/17
--- OUTSIDE RECORDS SUMMARY | 2025-03-30 10:53 | XMS_ITS | Data Portability ---
Author Organization [place] - [employer], [facility], [facility] Address [address] [place] [address] Care Team Providers Care Emergency Communications Operator Name Role Phone ELIOT ALEXANDRA Primary Care Provider ELIOT ALEXANDRA Referring Provider [phone] EM GARCÍA Car Shunter AURELIA QUIROGA Primary Care Provider PEG DIXON Urologist Assessment No assessment recorded. Plan of Treatment Reminders Order Date Submit Date Provider Last Modified By Organization Details Last Modified Time Details Appointments ESTABLISH ED OV 15 2024 10:00A M Eliot Alexandra MD Not available Not available Not available Lab urinalysi s, dipstick 2022 023 [email or web address] In-Office Order, Internal Use Only DO Not Attach Compendium DO Not Attach Compendium, Do Not Delete/merge, [id number] 11/22/2022 14:17:26 culture, urine 2022 023 [facility], [address] [place], [address], 11/27/2022 04:02:46 Referral None recorded. Procedures None recorded. Surgeries None recorded. Imaging None recorded. Medication Orders metronida zole 500 mg tablet 2022 023 [email or web address] 7 [facility]206, [address], [place], [phone], 10/20/2023 09:20:51 hyoscyami ne 0.125 mg sublingua l tablet 2022 023 MARIAELENA [facility] #61217, [address], [place], [phone], 11/28/2022 14:45:21 Macrobid 100 mg capsule 2022 023 [email or web address] 7 [facility] #39059, [address], [place], [phone], 10/20/2023 09:24:38 Patient TargetsNo targets recorded. Patient Instructions Encounter Date Encounter Id Patient Instructions Last Modified By Organization Details Last Modified Time 10/20/2023 [id number] Anticipatory guidelines discussed. Medication list reviewed. She will record her blood pressures at home. If her blood pressure remains on the high side or is not going down, I told him to make a follow-up appointment. Otherwise, we'll see her again in a year or as needed. Not available 10/20/2023 13:22:36 08/25/2024 [id number] We discussed you r recent medical visits and current health status: - You saw your family doctor, [facility], music copyist, and chiropractor recently, with no significant changes [...] URINE , ROUTI NE Micro Numbe r: [id number] 631 Test Statu s: Final Speci men [...] Cultu re Trans port Tube. Not Available [facility] [address] [place], [place] [address]y [address] [facility], [place], [address], 11/27/2022 04:02:46 11/22/1911/22/2022 urina lysis , dipst ick leukocytes small negati ve Not Available In-Office Order Internal Use Only DO Not Attach Compendium DO Not Attach Compendium, Do Not Delete/merge, [id number] 11/22/2022 14:02:08 11/22/1911/22/2022 urina lysis , dipst [...] DO Not Attach Compendium, Do Not Delete/merge, [id number] 11/22/2022 14:02:08 11/22/19 23 11/22/2022 urina lysis , dipst ick glucose negati ve mg/dL negati ve Not Available In-Office Order Internal Use Only DO Not Attach Compendium DO Not Attach Compendium, Do Not Delete/merge, [id number] 11/22/2022 14:02:08 Result Notes None recorded. Problems Name Problem SNOMED Code Status Onset Date Resolution Date Notes Provider Name and Address Organization Details Recorded Time Abdominal pain 78178579 Completed 10/17/2022 Eliot Alexandra MD [address], [place], [address] , [facility] [employer] 3 09:55:53 Low back pain 349418054 Active Not Available [facility] 2 16:16:52 Scoliosis deformity of spine 727273742 Active Not Available [facility] 2 16:16:53 Right lower quadrant pain 054709602 Completed 10/17/2022 Eliot Alexandra MD [address], [place], [address] , [facility] [employer] 3 09:55:53 Osteopeni a 467986812 Active Not Available [facility] 2 16:16:53 Osteoarth ritis 677426308 Active Not Available [facility] 2 16:16:53 Obesity 036514022 Active Not Available [facility] 2 16:16:53 Conjuncti vitis 2533741 Completed 10/17/2022 Eliot Alexandra MD [email or web address], [place], [address] , [facility] [employer] 3 09:56:08 Myocardia l infarctio n 28886622 Completed 201611/10/2017 Trever Rubio MD [email or web address], [email or web address], [address] , [facility], [facility] 8 14:58:32 Hypothyro idism 13707964 Completed 201609/21/2018 Eliot Alexandra MD [address], [email or web address], [address] , [facility], [facility] 8 13:51:12 Hyperlipi demia 53558380 Active 2016 Jazzy maria [facility], [facility] 9 17:36:26 History of reimplant ation of ureter 106112369 Active 2016 [facility] 9 17:36:26 Blood in urine 67891048 Completed 201602/01/2019 Eliot Alexandra MD [address], [email or web address], [address] , [facility], [facility] 9 21:49:20 Right flank pain 687449365 Completed 201612/29/2017 Trever Rubio MD [address], [email or web address], [address] , [facility], [facility] 8 15:12:43 Coronary arteriosc lerosis in [place] artery 72235472468 07 Active 2017 Jazzy maria [facility], [facility] 9 17:36:26 Stented coronary artery 355898720 Active 2017 [facility] 9 17:36:26 Erythemat ous duodenopa thy 644814947 Completed 201702/01/2019 Eliot Alexandra MD [address], [email or web address], [address] , [facility], [facility] 9 21:50:06 Esophagit is 72636344 Completed 201710/17/2022 MD Danny Mckeon[address], [email or web address], [address] , [facility], [facility] 3 09:56:08 Gastroeso phageal reflux disease 004476755 Active 2017 Jazzy maria, [facility], [facility] 9 17:36:26 Chest pain 91082813 Completed 02/01/[address], [email or web address], [address] , [facility], [facility] 9 21:49:30 Urinary tract infectiou s disease 79425799 Completed 10/17/2022 MD Jessa Mckeon [address], [email or web address], [address] , [facility], [facility] 3 09:56:08 Worried well 59270579 Completed 02/01/2019 MD Danny Mckeon[address], [email or web address], [address] , [facility], [facility] 9 21:50:03 Hydrouret er 14242695 [facility] 17:36:26 Abdominal pain - cause unknown 906531063 Completed 02/01/2019 MD Danny Mckeon[address], [email or web address], [address] , [facility], [facility] 9 21:49:11 Right sided abdominal pain 591295262 Completed 02/01/[address], [email or web address], [address] , [facility], [facility] 9 21:49:26 Malaise and fatigue 648443870 Completed 02/01/[address], [email or web address], [address] , [facility], [facility] 9 21:49:23 Renal colic 1141603 Completed 10/17/2022 Eliot Alexandra MD [address], [place], [address] , [facility], [facility] 3 09:56:08 Hyperthyr oidism 12946158 Completed 201810/17/2022 Eliot Alexandra MD [address], [place], [address] , [facility], [facility] 3 09:56:40 Problem Notes None recorded. Procedures Surgical History Date Name Laterality Status Provider Name and Address Organization Details Recorded Time 11/28/19 23 Walk-In Basic Visit completed Dana Gamez [facility], [facility] 11/27/2022 16:18:30 08/31/20 21 Quality [facility] 08/31/2021 10:44:07 08/31/20 21 Quality Medication Reviewed and Updated completed [facility], [facility] 08/31/2021 10:44:07 08/31/20 21 Medicare AWV Questionnaire completed Eliot Alexandra MD [address], [place], [address], [facility], [facility] 08/31/2021 11:22:11 08/31/20 21 Quality Fall Risk Assessment Low Risk completed Negar mario [facility], [facility] 08/31/2021 10:44:07 08/31/20 21 Quality BMI with follow up completed Negar Lane [facility], [facility] 08/31/2021 10:44:07 08/31/20 21 Quality Advanced Care Planning [facility] 08/31/2021 10:44:07 08/31/20 21 Quality Incontinence Screening [facility], [facility] 08/31/2021 10:44:07 08/31/20 21 Medicare AWV - Screening Schedule completed Negar Lane [facility], [facility] 08/31/2021 10:44:07 07/22/20 21 Date of Last Mammogram completed Negar [address] [facility], [facility] 08/31/2021 10:55:28 07/13/20 21 Date of Last Pap Smear completed Neg[address] [facility], [facility] 08/31/2021 10:54:54 05/24/20 19 Thyroidectomy completed Sylvain Connor [facility], [facility] 08/16/2019 14:34:00 06/02/20 18 Hysterectomy completed Nicole Mann [facility], [facility] 09/21/2018 13:33:57 12/04/19 18 Colonoscopy completed [facility] 12/04/2017 16:48:20 11/10/19 18 Quality TCM Medication Reconciliation completed [facility], [facility] 11/10/2017 14:08:31 11/07/19 18 TCM Initial completed Kimberly Berry [facility], [facility] 11/07/2017 12:55:59 10/13/19 16 Screening pap smear by phys completed [facility] 08/28/2016 10:03:28 10/13/19 16 Mammogram Screening completed [facility] 08/28/2016 10:03:28 10/13/19 16 Cholecystectomy completed [facility] 08/28/2016 10:10:36 10/13/19 16 EGD-Upper Endoscopy completed [facility] 09/13/2016 10:03:10 10/13/19 15 Dxa bone density katia vrt fx completed [facility] 08/28/2016 10:03:28 10/13/19 15 Back surgery completed [facility] 08/28/2016 10:10:36 12/10/19 14 Colonoscopy completed rTever Rubio MD [email or web address], [place], [address], [facility] 08/28/2016 17:39:51 10/13/19 14 Joint replacement, Knee completed [facility] 08/28/2016 10:10:36 10/13/19 13 Cardiovascular stress test completed [facility] 08/28/2016 10:03:28 10/13/18 57 Tonsillectomy completed [facility] 08/28/2016 10:10:36 [facility] 01/29/2019 17:57:10 Stent Placement, Other completed Jazzyanikta Morton [facility] 01/29/2019 17:57:10 Tubal ligation completed [facility] 01/29/2019 17:57:10 Imaging Results None recorded. Procedure Notes None recorded. Medical Equipment None Reported. Allergies Allergen ID Allergen Name Allergen Category Reaction Reaction Severity Criticality Documentation Date Start Date Code Code System Note Provider Name and Address Organization Details Recorded Time 301494 Cipro medicatio n myalgias (muscle pain) moderate Not available 09/17/201706991 3 RxNorm Possi ble tendo n issue s. COLT Tong [email or web address], [place], [address], [facility] 7 14:28:40 609590 nickel environme nt Not available Not available Not available 01/29/20192016 14492 29 RxNorm Jazzy Morton [facility] 9 17:36:10 Medications Name Sig Start Date [...] Updated DateTime 4 162.56 cm 30.7 kg/m2 83017.3 2 g 98.3 [degF] 96 % 96 % 62 /min 156 mm[Hg] 78 mm[Hg] Dana Gamez [place] - [facility], [facility] 4 09:28:37 Date Recorded Body height Body mass index (BMI) Body weight Heart rate Oxygen saturation Oxygen saturation in Arterial blood by Pulse oximetry Body temperature Systolic blood pressure Diastolic blood pressure Provider Name and Address Organization Details Last Updated DateTime 3 162.56 cm 30.2 kg/m2 48599.5 4 g 54 /min 98 % 98 % 97.1 [degF] 124 mm[Hg] 78 mm[Hg] Sylvain Connor [facility], [facility] 3 14:01:23 Date Recorded Body height Body mass index (BMI) Body weight Body temperature Heart rate Oxygen saturation Oxygen saturation in Arterial blood by Pulse oximetry Systolic blood pressure Diastolic blood pressure Provider Name and Address Organization Details Last Updated DateTime 3 162.56 cm 30.3 kg/m2 44754.4 1 g 98.4 [degF] 55 /min 98 % 98 % 130 mm[Hg] 76 mm[Hg] Danajessee Gamez [facility], [facility] 3 14:21:58 Date Recorded Body height Body mass index (BMI) Body weight Oxygen saturation Oxygen saturation in Arterial blood by Pulse oximetry Heart rate Body temperature Systolic blood pressure Diastolic blood pressure Provider Name and Address Organization Details Last Updated DateTime 3 162.56 cm 29.8 kg/m2 85197.6 4 g 97 % 97 % 58 /min 97.7 [degF] 142 mm[Hg] 84 mm[Hg] Danajessee Gamez [facility], [facility] 3 11:04:45 Date Recorded Body height Body mass index (BMI) Body weight Body temperature Oxygen saturation Oxygen saturation in Arterial blood by Pulse oximetry Heart rate Systolic blood pressure Diastolic blood pressure Provider Name and Address Organization Details Last Updated DateTime 4 162.56 cm 28.3 kg/m2 68004.7 4 g 98.3 [degF] 99 % 99 % 55 /min 162 mm[Hg] 90 mm[Hg] Danajessee Gamez [facility], [facility] 4 09:50:32 Social History Question Answer Notes LastModified by Organizat ion Details LastModified Time Tobacco Smoking Status Former Smoker Mallory maria [facility], [facility] 08/28/2016 10:19:53 Alcohol Use No [...] Crohn's Disease N HIV/AIDS N Stroke/TIA N High Cholesterol Y Colon Problems Y Serious Injuries N Kidney Disease N [...] 50 mcg/0.25mL dose [address] [facility] 08/31/2021 10:35:10 COVID-19, mRNA, LNP-S, PF, 100 mcg/0.5mL dose or 50 mcg/0.25mL dose [address] [facility], [facility] 08/31/2021 10:35:10 Influenza, split virus, quadrivalent, preservative 1 completed Not Available [facility] 10/19/2023 00:09:07 COVID-19, mRNA, LNP-S, PF, 100 mcg/0.5mL dose or 50 mcg/0.25mL dose 1 completed Not Available [facility] 10/19/2023 00:09:07 SARS-COV-2 (COVID-19) vaccine, UNSPECIFIED 3 completed Dana Gamez [facility] 10/20/2023 09:26:28 COVID-19, mRNA, LNP-S, PF, gilbert-sucrose, 30 mcg/0.3 mL 4 completed Dana Gamez [facility] 08/24/2024 16:29:52 SARS-COV-2 (COVID-19) vaccine, UNSPECIFIED 4 completed Dana Gamez [facility] 08/25/2024 09:49:10 Past Encounters Encounter ID Performer Location Encounter Start Date Encounter Closed Date Diagnosis/Indication Diagnosis SNOMED-CT Code Diagnosis ICD10 Code Diagnosis Note [id number] MD MARYURI Siddiqui [address] [place] [address] 08/28/2016 09:44:54 08/28/2016 12:18:01 Right lower quadrant pain 081862452 R10.31 Abnormal f indings on diagnostic imaging of urinary organs 333124217 R93.41 Diarrhea 86594109 R19.7 Diverticul ar disease of colon 503028094 K57.30 Scoliosis deformity of spine 354898333 M41.9 Hyperlipidemia 46496646 E78.5 [id number] ED Alicea [facility] [address] [facility] [place] [address] [place] [address] 09/17/2016 14:40:11 09/17/2016 17:26:58 Chronic low back pain 788637621 M54.5 [id number] Trever Rubio MD [facility] [address] [place] [address] 12/12/2016 15:22:18 12/12/2016 16:26:01 Elevated blood-pressure reading without diagnosis of hypertension 579154827 R03.0 Hiatal hernia 34823885 K 44.9 Renal colic 3364793 N23 Hydroureter 72215149 N13 .4 [id number] Trever Rubio MD [facility] [address] [place] [address] 01/27/2017 14:09:22 01/27/2017 16:05:03 Benign essential hypertension 6524614 I10 Subconjunc tival hemorrhage 06662639 H11.32 Hydroureter 97886933 N13 .4 [id number] Trever Rubio MD [facility] [address] [place] [address] 08/19/2017 09:53:34 08/19/2017 13:02:14 Myocardial infarction 14489008 I21.A9 Stented co ronary artery 565318064 Z95.5 Hyperlipidemia 04544846 E78.5 Hyperthyroidism 83838972 E05.90 [id number] COLT Venegas [facility] [address] [facility] [place] [address] [place] [address] 09/06/2017 08:14:05 09/06/2017 09:13:03 Acute urinary tract infection 053620415 N39.0 Urinalysis dip postive trace leukocytes and [...] care instructio ns provided and risks reviewed [id number] [facility] [address] [place] [address] 09/08/2017 14:41:25 09/08/2017 16:51:08 Right flank pain 501888098 R10.9 Blood in urine 06974762 R31.9 History of reimplantation of ureter 003837964 Z96.0 [id number] COLT Tong [facility] [address] [place] [address] 09/12/2017 10:55:28 09/15/2017 11:36:44 Acute stress disorder 55420364 F43.0 Acute. Worsening. Rx for buspar - initially use prn. Abdominal pain 01712379 R10.9 Acute. Improved today. Seen in ER yesterday. Rx for ondansetro n as needed for nausea. [id number] COLT Tong Dalton [facility] [address] [place] [address] 09/17/2017 13:54:43 09/17/2017 14:32:47 Pain in both feet 0589989868 2195418 M79.671 Acute. Uncontroll ed/unchang ed. Rx for [...] added cipro as a possible intoleranc e. [id number] Trever Rubio MD [facility] [address] [place] [address] 11/07/2017 12:54:33 11/07/2017 12:59:26 [id number] Trever Rubio MD [facility] [address] [place] [address] 11/10/2017 14:00:28 11/10/2017 15:58:45 Chest pain 35746096 R07.89 Coronary arteriosclerosis in [place] artery 8523981046 107 I25.10 Stented co ronary artery 064890248 Z95.5 Hypothyroidism 25396827 E03.9 Hyperlipidemia 62176904 E78.5 Gastroesop hageal reflux disease 540584205 K21.0 Esophagitis 50948174 K20 .9 Erythemato us duodenopathy 827927644 K31.89 [id number] Trever Rubio MD [facility] C [address] [place] [address] 12/29/2017 14:17:30 12/29/2017 15:28:34 Coronary arteriosclerosis in [place] artery 3671542983 107 I25.10 Stented co ronary artery 437589694 Z95.5 Myocardial infarction 22 720405 I21.A9 Gastroesop hageal reflux disease 105100081 K21.0 Hyperlipidemia 04952264 E78.5 Hypothyroidism 52320694 E03.9 History of reimplantation of ureter 769925068 Z96.0 [id number] COLT Tong [facility] [address] [place] [address] 08/20/2018 14:29:13 08/23/2018 19:54:33 Acute urinary tract infection 691357193 N39.0 Acute. Worsening. Initial treatment. Rx for oral antibiotic . Encourage good po fluid intake. Follow-up with PCP or at the walk-in if no better or any worse. Patient voiced understand ing and agreement with treatment plan. [id number] MD MARYURI Mckeon [address] [place] [address] 09/21/2018 13:09:42 09/21/2018 13:59:46 Gastroesophageal reflux disease 763500970 K21.9 STABLE. CONTINUE WITH MEDICATION . Hyperthyroidism 25970828 E05.90 STABLE. CONTINUE WITH MEDICATION . Hyperlipidemia 95594697 E78.5 STABLE. CONTINUE WITH MEDICATION . [id number] MD MARYURI Mckeon [address] [place] [address] 02/01/2019 11:08:49 02/01/2019 11:38:54 Body mass index 30+ - obesity 158053814 E66.9 Z68.30 weight issues discussed and informatio n on weight loss given. Needs follow up on weight control as scheduled. Education handout on diets given. Exercise counseling done. Will arrange referral for dietitian, nutritioni st, Physical/o ccupationa l therapy as needed or desired. Also will consider pharmaceut ical and supplement al interventi ons Obesity 133214969 E66.9 Diet education 99511262 Z71.3 as above Hyperthyroidism 12571144 E05.90 STABLE. CONTINUE WITH MEDICATION . Gastroesop hageal reflux disease 379652838 K21.9 STABLE. CONTINUE WITH MEDICATION . Coronary arteriosclerosis in [place] artery 7072376860 107 I25.10 stable. Continue with medication . Hyperlipidemia 47508594 E78.5 STABLE. CONTINUE WITH MEDICATION . 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 Posterior rhinorrhea 758 65106 R09.82 I do not think her sinus drainage symptoms was related to her thyroid dosage change. It is improving but rather than using oral antihistam ine I recommend she use flonase. I also advise to return for eval should she again worsen. Cough 67408478 R05 report if not continuing to improve and resolve w/ tx of PND. [id number] Eliot Alexandra MD [facility] [address] [place] [address] 11/02/2019 11:04:52 11/03/2019 07:08:38 Body mass index 30+ - obesity 271575326 Z68.31 weight issues discussed and informatio n on weight loss given. Needs follow up on weight control as scheduled. Education handout on diets given. Exercise counseling done. Will arrange referral for dietitian, nutritioni st, Physical/o ccupationa l therapy as needed or desired. Also will consider pharmaceut ical and supplement al interventi ons Obesity 632921663 E66.9 see BMI above for details Diet education 46713202 Z71.3 as above Cobalamin deficiency 190 198271 E53.8 Postoperat peter hypothyroidism 00985424 E89.0 Long-term drug therapy 963447934 Z79.899 [id number] Eliot Alexandra MD [facility] [address] [place] [address] 12/30/2019 09:47:31 12/31/2019 07:01:06 Body mass index 30+ - obesity 932161558 E66.9 Z68.30 weight issues discussed and informatio n on weight loss given. Needs follow up on weight control as scheduled. Education handout on diets given. Exercise counseling done. Will arrange referral for dietitian, nutritioni st, Physical/o ccupationa l therapy as needed or desired. Also will consider pharmaceut ical and supplement al interventi ons Obesity 195849566 E66.9 see BMI above for details Diet education 50762872 Z71.3 as above Right lowe r quadrant pain 438248852 R10.31 [id number] Eliot [facility] [address] [facility] [place] [address] 08/30/2020 10:04:30 08/30/2020 10:40:14 Benign essential hypertension 8538078 I10 Coronary arteriosclerosis in [place] artery 7842273975 107 I25.10 stable. Continue with medication . Angiotensi n-convertin g-enzyme inhibitor adverse reaction 580754753 T46.4X5A throat irritation with lisinopril Contractur e of palmar fascia 780094566 M72.0 right handher Atheroscle rosis of aorta 54856979 I70.0 stable. monitor for symptoms. [id number] Eliot Alexandra MD MP [facility] [address] [place] [address] 08/31/2021 10:26:44 08/31/2021 11:31:41 Adult health examination 412175407 Z00.00 Annual Wellness Visit done today Increased body mass index 99994972 Z68.29 elevated BMI. Discussed diet and better therapeuti c lifestyle changes. Diet education 17917179 Z71.3 as above Hyperthyroidism 22347924 E05.90 stable. continue with llevothyro xine 100 g once a day.. Gastroesop hageal reflux disease 262335781 K21.9 stable. continue to monitor for symptoms. Hyperlipidemia 43521612 E78.5 stable. continue with atorvastat in 20 mg once daily.. Scoliosis deformity of spine 301149842 M41.9 patient presents with chronic pain which is unrelentin g.For patient to pain management for possible epidural injections . Benign ess ential hypertension 6021016 I10 stable. Continue with metoprolol 25 mg once daily. The patient did stop taking the lisinopril and the losartan prescribed previously as directed by her cardiologi [facility]. Her throat irritation which she presented with last visit has resolved. Coronary arteriosclerosis in [place] artery [id number] 107 I25.10 stable. Continue with medication . follow-up with cardiologi in [place] [id number] _ATHN_MIGR ATION_1 [facility] [address] [facility] [address] [place] [address] 10/19/2013 00:00:00 10/19/2013 15:02:05 [id number] _ATHN_MIGR ATION_1 _ATHENA_M IGRATION_ DEFAULT_2 2_1 , 10/28/2013 00:00:00 12/08/2013 10:37:16 [id number] _ATHN_MIGR ATION_1 _ATHENA_M IGRATION_ DEFAULT_2 2_1 , 12/23/2013 00:00:00 12/23/2013 14:30:54 [id number] Eliot Alexandra MD [facility] [address] [place] [address] 02/04/2022 10:36:00 02/05/2022 16:44:33 Hypothyroidism 97648863 E03.9 surgical hypothyroi dism.We will send a prescripti on for brand name Synthroid to a pharmacy and see if they will cover it. Daytime hypersomnia [id number] 2060 G47.19 with possible sleep apnea.We did discuss overnight sleep studies however, she will be leaving for [place] soon.I told her to discuss the issue with her PCP so she can see a specialist or at least have home sleep study. [id number] Eliot Alexandra MD [facility] [address] [place] [address] 10/17/2022 09:38:58 10/17/2022 23:05:43 History of SARS-CoV-2 [id number] 73687000 Z86.27 April 2022; No residual symptom Coronary arteriosclerosis in [place] artery 6201351200 107 I25.10 stable. Continue with medication . follow-up with cardiologi in [place] Pain of ri ght knee joint 5924278416 40673 M25.561 ongoing subacute issue.The patient thinks that she tore a meniscus again.we will refer the patient to an orthopedic surgeon for evaluation and treatment. Irritable bowel syndrome 71708351 K58.9 stable. continue with probiotic once a day. Adverse re action to drug 32294295 T50.905A recurring nightmares probably secondary to amitriptyl ine use.I told her to stop taking the amitriptyl ine for now. She may take melatonin for sleep.Call back if symptoms persists. [id number] COLT Pearce [facility] [address] [place] [address] 11/22/2022 13:45:17 11/22/2022 16:19:48 Dysuria 10165034 R30.0 she has only minimal tenderness in abd. do not suspect bowel infection, most likely uti. start macrobid and culture urine. keep up with increased fluids. f/u pending result Abdominal pain 11578175 R10.9 same as above [id number] MD MARYURI Mckeon [address] [place] [address] 11/28/2022 14:13:33 11/30/2022 21:44:00 Bowel spasm 261123788 R25.2 probably secondary to mild diverticul itis.The [...] GI when she gets back home to [place] in February. [id number] MD MARYURI Mckeon PCP [address] [place] [address] 12/10/2022 10:48:58 12/10/2022 14:31:13 Diverticulitis of colon 978831236 K57.32 rule out IBS.The patient may continue [...] February.Advanc e activity and diet as tolerated. [id number] MD MARYURI Mckeon PCP [address] [place] [address] 10/20/2023 09:18:17 10/21/2023 19:04:12 Benign essential hypertension 5597052 I10 chronic, uncontroll ed.I told her to increase the dose of metoprolol 25 mg 2 times a day.Contin ue recording blood pressures at home. Skin lesion 80509643 L98 .9 right shoulder area.The patient will keep her appointmen t with the dermatolog ist Osteoarthr itis of right knee joint 8417574796 42571 M17.11 chronic, ongoing issue. She is receiving Synvisc shots. Follow-up with orthopedic surgeon as scheduled. Atheroscle rosis of aorta 16288485 I70.0 stable. continue to monitor for symptoms. order imaging study as needed. [id number] MD MARYURI Mckeon PCP [address] [place] [address] 08/25/2024 09:39:56 08/25/2024 10:19:34 Influenza vaccination declined 511396630 Z28.21 - Patient declined influenza vaccinatio n.- Educated patient on the importance of annual influenza vaccinatio n, especially given her age and comorbid conditions . Benign ess ential hypertension 4166301 I10 - Chronic, stable condition. - Blood pressure today is 144/76 mmHg.- Advised patient to monitor blood pressure at home regularly. - Patient reported discontinu ation of valsartan due to adverse effects including dizziness, weakness, and shakiness. - Continue current antihypert ensive regimen with metoprolol 25 mg once daily. Osteoarthr itis of right knee joint 3374003291 83686 M17.11 - Chronic, symptomati c condition with bone-on-kenny ne changes.- Patient is currently taking glucosamin e, which provides some relief.- Discussed potential for knee surgery with Dr. Tineo, an orthopedic surgeon.- Advised patient to consider surgical options if symptoms worsen. Atheroscle rosis of aorta 42172773 I70.0 - stable. continue to monitor for symptoms. order imaging study as needed. Scoliosis deformity of spine 240842087 M41.9 - Chronic condition with back pain.- Patient has been seeing a chiropract or, which has provided some relief.- Continue current management and consider physical therapy if symptoms persist. Osteoarthritis 067623957 M19.90 - Chronic, stable condition. - Continue current management with glucosamin e and over-the-c ounter pain relief as needed. Coronary arteriosclerosis in [place] artery 6047388462 107 I25.10 - Chronic, stable condition. - No new symptoms reported.- Continue current management with atorvastat in 20 mg once daily and CoQ10. Hypothyroidism 86095410 E03.9 - Chronic, stable condition. - Patient [...] 08/13/2024 1 [facility]IENCE [facility] - MEDICARE-[facility] (MEDICARE) Nicolette Regalado [id number] Nicolette Regalado 11/04/2018 1 [place] Nicolette Regalado [id number] Nicolette Regalado 08/25/2024 2 [facility] RAIL[facility] PLAN D AND F (MEDICARE SUPPLEMENT) [id number] Frantz Regalado [id number] Nicolette Regalado 08/28/2016 1 *SELF PAY* Re anoop Regalado Notes Date Note Type Note Provider Name and Address Organization Details Recorded Time 11/22/2022 text/html Ms. Regalado pres ents today with complaint of dysuria urinary frequency and lower abdominal discomfort.Her symptoms started Friday and waxed and waned again flaring up today. COLT Pearce [email or web address], [email or web address], [address], [facility] 11/22/2022 14:23:45 11/28/2022 text/html HYPOGASTRIC PAIN AND [...] out of the ordinary. Eliot Alexandra MD [email or web address], [place], [address], [facility] [employer] 11/28/2022 19:40:37 12/10/2022 text/html POSSIBLE DIVERTICULITIS. Over [...] are above 65. Eliot Alexandra MD [address], [email or web address], [address], [facility] 12/10/2022 20:51:18 10/20/2023 text/html HYPERTENSION. Th e [...] bigger. She has an appointment with the music copyist soon. She has never been told she [...] on a regular basis. Eliot Alexandra MD [address], [email or web address], [address], [facility] 10/20/2023 21:20:19 08/25/2024 text/html The patient is a 74-year-old female with a history of scoliosis and knee osteoarthritis, presenting for a follow-up visit. The patient recently returned from [place] on August 11. While in [place], she had a routine examination with her primary care physician in February, who advised her to continue her current medications. She also consulted her ice cream man, who reported normal findings without ordering additional tests. Additionally, she visited a music copyist, who found no abnormalities, and a chiropractor [...] approximately 20 years ago. Eliot Alexandra MD [address] [address], [place], [address], [facility] - [facility], [facility] 08/25/2024 13:27:14 OBGyn Episode No OBEpisode recorded.
--- OUTSIDE RECORDS SUMMARY | 2025-03-30 10:53 | XMS_ITS | Encounter Summary ---
Author Organization [facility] Address [address] [place] [address] Care Team Providers Care Company Miner Blasting Name Role Phone Janina Castro MD Primary Care Provider [phone] Encounter Details Date Type Department Care Team (Latest Contact Info) Description 04/23/2018 Surg/Proc Orders [facility] Gynecologic Oncology Services [facility] [address] [place] [address] Farhad Mendez MD Endometrial adenocarcinoma (HCC) (Primary [...] Description 05/16/2025 11:10 AM EDT Office Visit [facility] Part of [address] [place] [address] Shelby Castillo APRN - [address] [place] [address] yearly--last seen by Dr Gutierrez documented as of this encounter Visit Diagnoses Diagnosis Endometrial adenocarcinoma (HCC)- Primary Malignant neoplasm of corpus uteri, except isthmus documented in this encounter Additional Health Concerns Assessment Noted Time A fall risk assessment has been complete d for the patient 03/23/2018 10:41 AM EDT documented as of this encounter Care Teams Company Miner [employer] Relationship Specialty Start Date End Date Janina Castro MD PCP - General Family Medicine 04/10/18 documented as of this encounter
--- OUTSIDE RECORDS SUMMARY | 2025-03-30 10:53 | XMS_ITS | Encounter Summary ---
Author Organization [facility] Address [address] [place] [address] Care Team Providers Care Robotics Technologist Name Role Phone Janina Castro MD Primary Care Provider [phone] Source Comments In the event this information is protected by the Federal Confidentiality of Alcohol and Drug AbusePatient Records regulations: The Federal rules restrict any use of the information to criminally investigate or prosecute any alcohol or drug abuse patient.[facility] Encounter Details Date Type Department Care Team (Late st Contact Info) Description 11/08/2019 Get Medical Advice [facility] [address] [place] [address] [place] [address] [facility] [address] [place] [address] RE: Upcoming Appointment Question Social History Tobacco [...] on filedocumented in this encounter Care Teams Robotics Technologist Relationship Specialty Start Date End Date Janina Castro MD [address] [place] [address] PCP - General Family Medicine 07/17/17 documented as of this encounter
--- OUTSIDE RECORDS SUMMARY | 2025-03-30 10:54 | XMS_ITS | Encounter Summary ---
Author Organization [facility] Address [facility] [place] [address] Care Team Providers Care Campaign Marketing Manager Name Role Phone Janina Castro MD Primary Care Provider [phone] Source Comments In the event this information is protected by the Federal Confidentiality of Alcohol and Drug AbusePatient Records regulations: The Federal rules restrict any use of the information to criminally investigate or prosecute any alcohol or drug abuse patient.[facility] Encounter Details Date Type Department Care Team ([facility] Contact Info) Description 04/27/2019 Patient Msg Medical Records [address] [place] [address] Provider, [facility] Prescribed Patient Education Video(s) Social [...] on filedocumented in this encounter Care Teams Campaign Marketing Manager Relationship Specialty Start Date End Date Janina Castro MD [address] [place] [address] PCP - General Family Medicine 07/17/17 documented as of this encounter
--- OUTSIDE RECORDS SUMMARY | 2025-03-30 10:54 | XMS_ITS | Encounter Summary ---
Author Organization [facility] Address [address] [place] [address] Phone Care Team Providers Care Cylinder Machine Operator Name Role Phone Janina Castro MD Primary Care Provider [phone] Encounter Details Date Type Department Care Team (Latest Contact Info) Description 03/17/2025 Travel Social History Tobacco Use Types Packs/Day [...] Info) Description 02/16/2026 9:45 AM EDT [facility] [address] [place] [address] 03/01/2026 10:30 AM EDT Office Visit [address] [place] [address] Lul Rose DO [address] [facility] [address] [place] [address] documented as of this encounter Visit Diagnoses Not on filedocumented in this encounter Additional Health Concerns Assessment Noted Time A fall risk assessment has been complete d for the patient 02/25/2024 10:28 AM EDT documented as of this encounter Care Teams Cylinder Machine Operator Relationship Specialty Start Date End Date Janina Castro MD [address] [place] [address] PCP - General 04/03/21 documented as of this encounter
--- OUTSIDE RECORDS SUMMARY | 2025-03-30 10:54 | XMS_ITS | Clinical Summary ---
Author Organization [facility] Address [address] [place] [address] Care Team Providers Care Youth Services Specialist Name Role Phone Unavailable Primary Care Provider [...]
--- OUTSIDE RECORDS SUMMARY | 2025-03-30 10:54 | XMS_ITS | Clinical Summary ---
Author Organization [facility] Address [address] [place] [address] Care Team Providers Care Explosive Operator Fuse Name Role Phone Janina Castro MD Primary Care Provider [phone] Allergies Active Allergy Reactions Criticality Noted Date Comments Beta Adrenergic Blockers 06/07/2023 Ciprofloxacin 04/23/2018 Causes tendon isuues Gluten Other (See Comments) 03/24/2025 GI symptoms Leucine 05/29/2017 Losartan Hives,Other (See Comments) 05/04/2018 Nickel 07/31/2006 Other 07/12/2013 metal Medications halobetasol (ULTRAVATE) 0.05 % cream USE NEEDED 2 04/11/20 16 Active Multiple Vitamins-Calci um (ONE-A-DAY WOMENS FORMULA PO) Take by mouth Active levothyroxine (SYNTHROID) 100 MCG tablet Take 1 tablet by mouth Daily 06/29/20 22 Active metoprolol succinate (TOPROL XL) 25 MG extended release tablet Take 1 tablet by mouth daily 05/25/20 22 Active glucosamine-ch ondroitin 500-400 MG tablet Take by mouth Active pregabalin (LYRICA) 75 MG capsuleIndicat ions:S/P total knee arthroplasty, right Take 1 capsule by mouth every 12 hours as needed (breakthrough pain) for up to 14 days. Max Daily Amount: 150 mg 28 capsule 03/24/20 25 025 Active aspirin (NORA ASPIRIN) 325 MG tablet Take 1 tablet by mouth daily 30 tablet 03/24/20 25 025 Active vitamin C (ASCORBIC ACID) 500 MG tablet Take by mouth Active vitamin D (CHOLECALCIFER OL) 25 MCG (1000 UT) TABS tablet Take by mouth daily Active FLAXSEED, LINSEED, PO Take by mouth Acti ve magnesium oxide (MAG-OX) 400 (240 Mg) MG tablet Take 1 tablet by mouth Active Inlet-3 Fatty Acids (FISH OIL) 1000 MG capsule Take by mouth Active Coenzyme Q10 (COQ10) 100 MG CAPS Take by mouth Active VITAMIN K PO Take by mouth Act peter calcium carbonate 600 MG TABS tablet Take 1 tablet by mouth daily Active busPIRone (BUSPAR) 5 MG tablet Take 1 tablet by mouth 3 times daily Active sodium chloride 1 g tablet Take 2 tablets by mouth in the morning and at bedtime for 5 days 20 tablet 03/26/20 25 025 Active docusate sodium (COLACE) 100 MG capsule Take 1 capsule by mouth 2 times daily for 10 days 20 capsule 03/26/20 25 025 Active aspirin 81 MG tabletIndicati ons:STOP 7 DAYS PRIOR Take 1 tablet by mouth daily Indications: STOP 7 DAYS PRIOR Discontinu ed(LIST CLEANUP) nitroGLYCERIN (NITROSTAT) 0.[address] 1 tablet under the tongue every 5 minutes as needed for Chest pain up to max of 3 total doses. If no relief after 1 dose, call 911. Discontinu ed(LIST CLEANUP) atorvastatin (LIPITOR) 20 MG tablet Take 1 tablet by mouth Discontinu ed(LIST CLEANUP) dicyclomine (BENTYL) 20 MG tablet Take 1 tablet by mouth Discontinu ed(LIST CLEANUP) MULTIPLE VITAMIN PO Multivitamin preparation (18 sources) Discontinu ed(LIST CLEANUP) sulfamethoxazo le-trimethopri m (BACTRIM DS;SEPTRA DS) 800-160 MG per tablet Take by mouth Discontinu ed(LIST CLEANUP) busPIRone (BUSPAR) 5 MG tablet Take 1 tablet by mouth 3 times daily Discontinu ed(LIST CLEANUP) oxyCODONE (ROXICODONE) 5 MG immediate release tabletIndicati ons:S/P total knee arthroplasty, right Take 1 tablet by mouth every 6 hours as needed for Pain for up to 5 days. Intended supply: 5 days. Take lowest dose possible to manage pain Max Daily Amount: 20 mg 20 tablet 03/24/20 25 025 Active Problems Problem Noted Date Diagnosed Date S/P total knee arthroplasty, right 03/24/2025 RALMatt BSO, Cytologic washings, Peritoneal biopsie s 06/02/18 06/02/2018 Essential hypertension 06/02/2018 Endometrial cancer 04/23/2018 Cancer Staging:Clinical stage from 06/03/2018:FIGO Stage IA(ycT1a, cN0(sn), cM0) - Signed by Farhad Mendez MD on 06/03/2018 Pathologic stage from 06/03/2018:FIGO Stage IA(ypT1a, pN0(sn), cM0) - Signed by Farhad Mendez MD on 06/03/2018 Coronary artery disease invo lving [place] ira heart without angina pectoris 01/08/2018 Mesenteric ischemia 01/08/2018 Primary hypercoagulable state 01/08/2018 Hyperthyroidism 06/04/2017 Multinodular goiter 06/04/2017 Post-op pain Resolved Problems Problem Noted Date Diagnosed Date Resolved Date Endometrial 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/23/2018 1 History of robot-assisted la paroscopic hysterectomy 06/02/2018 01/04/2020 Encounters Date Type Department Care Team Description 03/24/2025 10:42 AM EDT Anesthesia Event [facility] OR [address] [place] [address] Sinan Khan APRN - SUPERVISOR EXTRUDING DEPARTMENT Zoë Ocampo APRN - CRNA 03/24/2025 10:04 AM EDT - 03/24/2025 12:39 PM EDT Surgery [facility] [place] [address] [place] [address] Jeramie Younger MD RIGHT TOTAL KNEE ARTHROPLASTY 03/24/2025 8:04 AM EDT - 03/26/2025 1:22 PM EDT Hospital Encounter [facility] Med Surg [address] [place] [address] Jeramie Younger MD S/P total knee arthroplasty, right (Primary Dx) Discharge Disposition: Home or Self Care 03/24/2025 Travel 03/14/2025 Travel from Last 3 Months Family History Medical History Relation Name Comments [...] drink = 0.6 oz pur e alcohol) [facility] Utilities Answer Date Recorded In [...] any time in the past 12 m [facility], were you homeless or living in a long term (including now)? No 03/24/2025 Food Insecurity Answer [...] Mass Index 31.37 03/26/2025 3:50 AM EDT Plan of Treatment Upcoming Encounters Date Type Department Care Team (Late st Contact Info) Description 05/16/2025 11:10 AM EDT Office Visit [facility] OBST[facility] & GYNECOLOGY Part of [address] [place] [address] Shelby Castillo APRN - [address] [place] [address] yearly--last seen by Dr Gutierrez Health Maintenance Due Date Last Done Comments Depression Screen 1964 Hepatitis C screen 1970 DTaP/Tdap/Td vaccine (1 - Tdap) 1971 Lipids 1992 Colonoscopy 1997 Colorectal Cancer Screen 1997 FIT/FOBT: Average risk 1997 Fecal-DNA (Cologuard): Average risk 1997 Sigmoidoscopy/CT colonography 1997 Shingles vaccine (1 of 2) 2002 DEXA (modify frequency per FRAX score) 2007 Annual Wellness Visit (Medicare) 09/08/2023 08/31/2021 COVID-19 Vaccine ( season) 2025 08/02/2024, 07/19/2024, 10/21/2023, Additional history exists Flu vaccine (Season Ended) [...] this topic Medical Devices Implanted Type Area Certified Substance Abuse Counselor Device Identifier Shelf Expiration Date Model / Serial / Lot Stent X2 N/A: Heart Biomet Bone Cement R 1x40us - [id number] Implanted:Qty: 1 on 03/24/2025 by Jeramie Younger MD at [facility] Right: Knee [employer] 04/11/2027 [id number] / / [id number] Biomet Bone Cement R 1x40us - [id number] Implanted:Qty: 1 on 03/24/2025 by Jeramie Younger MD at [facility] Right: Knee [employer] 05/12/2027 [id number] / / [id number] All Poly Pat Ve 32 Mm Susan - [id number] Implanted:Qty: 1 on 03/24/2025 by Jeramie Younger MD at [facility] Right: Knee [employer]- 06/07/2029 [id number] Psn Tib Stm 5 Deg Sz E R - [id number] Implanted:Qty: 1 on 03/24/2025 by Jeramie Younger MD at [facility] Right: Knee [employer]- 12/26/2033 [id number] Psn Fem Cr Cmt Cocr Std Sz6 R - [id number] Implanted:Qty: 1 on 03/24/2025 by Jeramie Younger MD at [facility] Right: Knee [employer]- 07/18/2034 [id number] Psn Mc Ve Asf R 11mm 6-7/Ef - [id number] Implanted:Qty: 1 on 03/24/2025 by Jeramie Younger MD at [facility] Right: Knee [employer]- 08/16/2029 [id number] Procedures Procedure Name Priority Date/Time Associated Diagnosis [...] (1-2 VIEWS) Routine 03/24/2025 1:55 PM EDT ANESTHESIA AIRWAY Routine 03/24/2025 10:59 AM EDT ANESTHESIA SPINAL BLOCK Routine 03/24/2025 10:50 AM EDT [place] ARTHRP KNE CONDYLE&PLATU MEDIAL&LAT COMPARTMENTS 03/24/2025 10:43 AM EDT Right knee pain, unspecified chronicity Osteoarthritis of right knee, unspecified osteoarthritis type Case Notes / Makayla 02/24/25[facility] Site- 0854 addedEmail JH/CHING/KATHLEEN/AP/JCitlalli/JE- 0907 sent Special Needs / Makayla 02/24/25[facility] Site- 0854 added Email GREGORY/CHING/KATHLEEN/LORA/JCitlalli/JE- 0907 sent POCT GLUCOSE Routine 03/24/2025 8:49 AM EDT [facility] TYREL DIGITAL SCREEN BILATERAL Routine 05/26/2024 Screening mammogram, encounter for from Last 3 Months or Most Recently Relevant to Health Maintenance Results * (ABNORMAL) Hemoglobin and Hematocrit (03/26/2025 4:30 AM EDT) Only the most recent of2 resultswithin the time period is included. Hemoglobin 8.3(L) 12.0 - 16.0 g/dL 03/26/2025 4:30 AM EDT [facility] Hematocrit 24.5(L) 36.0 - 47.0 % 03/26/2025 4:30 AM EDT [facility] Blood (Blood Whole) 03/26/2025 4:30 AM EDT 03/26/2025 5:25 AM EDT us Nereida WARD HEMATOLOGY ORDERABLES Final Resu lt [address] [address] * (ABNORMAL) Urinalysis with Reflex to Culture (03/25/2025 5:24 PM EDT) Color, UA Yellow 03/25/2025 5:24 PM EDT [facility] Clarity, UA Clear 03/25/2025 5:24 PM EDT [facility] Glucose, Ur Negative Negative mg/dL 03/25/2025 5:24 PM EDT [facility] Ketones, Urine Trace(A) Negative mg/dL 03/25/2025 5:24 PM EDT [facility] Bilirubin, Urine Negative Negative 03/25/2025 5:24 PM EDT [facility] Specific Gould, UA 1.015 1.005 - 1.030 03/25/2025 5:24 PM EDT [facility] pH, Urine 6.0 5.0 - 7.0 03/25/2025 5:24 PM EDT [facility] Blood, Urine Negative Negative 03/25/2025 5:24 PM EDT [facility] Protein, Urine Negative Negative mg/dL 03/25/2025 5:24 PM EDT [facility] Urobilinogen, Urine 0.2 E.U./dL <2.0 E.U./dL 03/25/2025 5:24 PM EDT [facility] Nitrate, UA Negative Negative 03/25/2025 5:24 PM EDT [facility] Leukocyte Esterase, Urine Negative Negative 03/25/2025 5:24 PM EDT [facility] Culture Indicated? No 03/25/2025 5:24 PM EDT [facility] WBC, UA 0-2 #/HPF 03/25/2025 5:24 PM EDT [facility] RBC, UA Rare #/HPF 03/25/2025 5:24 PM EDT [facility] Squam Epithel, UA Few #/LPF 03/25/2025 5:24 PM EDT [facility] MUCUS, URINE None Seen 03/25/2025 5:24 PM EDT [facility] BACTERIA, URINE None Seen 03/25/2025 5:24 PM EDT [facility] Urine 03/25/2025 5:24 PM EDT 03/25/2025 5:24 PM EDT us Brandon Jose MD URINE ORDERABLES Final Result [facility] [address] [id number] * (ABNORMAL) Basic Metabolic Panel w/ Reflex to MG (03/25/2025 3:52 PM EDT) Glucose 97 65 - 100 mg/dL 03/25/2025 3:52 PM EDT [facility] BUN 12 7 - 17 mg/dL 03/25/2025 3:52 PM EDT [facility] Creatinine 0.73 0.52 - 1.04 mg/dL 03/25/2025 3:52 PM EDT [facility] Sodium 126(L) 135 - 145 mEq/L 03/25/2025 3:52 PM EDT [facility] Comment: Result amended from (126) (03/25/2025 3:53 PM) to () by CD. Result amended from (Not Reported) (03/25/2025 3:53 PM) to (126) by CD. Potassium 3.8 3.6 - 5.0 mEq/L 03/25/2025 3:52 PM EDT [facility] Chloride 98 98 - 107 mEq/L 03/25/2025 3:52 PM EDT [facility] CO2 24 22 - 32 mEq/L 03/25/2025 3:52 PM EDT [facility] Calcium 7.8(L) 8.4 - 10.2 mg/dL 03/25/2025 3:52 PM EDT [facility] Est, Glom Filt Rate 87 >60 mL/min/1.7 3m2 03/25/2025 3:52 PM EDT [facility] Comment: GFR calculated using CKD-EPI (2020) [...] EDT 03/25/2025 3:52 PM EDT Narrative [facility] - 03/25/2025 4:02 PM EDT Result corrected due to result entered in wrong spot. 03/25/2025 at 4:03 PM by JIMENEZ REYNOLDS. us Brandon Jose MD CHEMISTRY ORDERABLES Edited R esult - Final [facility] [address] [place] [address] * US DUP LOWER EXTREMITY RIGHT ELVIRA (03/25/2025 3:05 PM EDT) Anatomical Region Laterality Modality Leg, Vascular Ultrasound 03/25/2025 3:0 5 PM EDT Impressions 03/25/2025 3:12 PM EDT [...] of bilateral lower extremity deep venous thrombosis. us Nereida WARD IMG US ORDERABLES Final Result * (ABNORMAL) Sodium (03/25/2025 2:35 PM EDT) Pathologist [facility] Sodium 126(L) 135 - 145 mEq/L 03/25/2025 2:35 PM EDT [facility] Blood (Blood Plasma) 03/25/2025 2:35 PM EDT 03/25/2025 2:35 PM EDT us Nereida WARD CHEMISTRY ORDERABLES Final Resul t [facility] [address] [place] [address] * (ABNORMAL) Basic Metabolic Panel (03/25/2025 4:30 AM EDT) Pathologist [facility] Glucose 93 65 - 100 mg/dL 03/25/2025 4:30 AM EDT [facility] BUN 13 7 - 17 mg/dL 03/25/2025 4:30 AM EDT [facility] Creatinine 0.70 0.52 - 1.04 mg/dL 03/25/2025 4:30 AM EDT [facility] Sodium 130(L) 135 - 145 mEq/L 03/25/2025 4:30 AM EDT [facility] Potassium 3.8 3.6 - 5.0 mEq/L 03/25/2025 4:30 AM EDT [facility] Chloride 102 98 - 107 mEq/L 03/25/2025 4:30 AM EDT [facility] CO2 22 22 - 32 mEq/L 03/25/2025 4:30 AM EDT [facility] Calcium 7.8(L) 8.4 - 10.2 mg/dL 03/25/2025 4:30 AM EDT [facility] Est, Glom Filt Rate 91 >60 mL/min/1.7 3m2 03/25/2025 4:30 AM EDT [facility] Comment: GFR calculated using CKD-EPI (2020) formula. [...] 4:30 AM EDT 03/25/2025 5:42 AM EDT us Nereida WARD CHEMISTRY ORDERABLES Final Resul t Performing Organization Address City/State/[facility] [place] [address] * XR KNEE RIGHT (1-2 VIEWS) (03/24/2025 [...] by: Dr. Lisa Rondon Procedure Note Lisa Rondon, - 03/24/2025 EXAM: XR KNEE RIGHT (1-2 VIEWS) HISTORY: TECH NOTES: s/p right TKA s/p right TKA COMPARISON: None. TECHNIQUE: 2 views. FINDINGS: Arthroplasty without complication. Report electronically signed by: Dr. Lisa Rondon IMPRESSION: Arthroplasty without complication. us Nereida WARD IMG DIAGNOSTIC IMAGING ORDERABLE S Final Result * CHP AN ETT (03/24/2025 10:59 AM EDT) Narrative Sinan Khan APRN - CRNA - 03/24/2025 10:59 AM EDT Sinan Khan APRN - CRNA 03/24/2025 11:21 AM Airway Date/Time: 03/24/2025 10:59 AM Urgency: elective Airway not difficult General Information and Staff Patient location during procedure: OR Resident/SUPERVISOR EXTRUDING DEPARTMENT: Sinan Khan APRN - CRNA Performed: resident/SUPERVISOR EXTRUDING DEPARTMENT Performed by: Sinan Khan APRN - CRNA [...] management and at surgeon's request Staffing Performed: resident/SUPERVISOR EXTRUDING DEPARTMENT Resident/SUPERVISOR EXTRUDING DEPARTMENT: Sinan Khan APRN - CRNA Performed by: Sinan Khan APRN - CRNA Authorized by: Sinan Khan APRN - CRNA Spinal Block Patient position: sitting Prep: Betadine and site prepped and draped Patient monitoring: ekg monitor, continuous pulse ox, continuous capnometry and frequent blood pressure checks Approach: midline Location: L3/L4 Guidance: paresthesia technique Provider prep: mask and sterile gloves Local infiltration: lidocaine Needle Needle type: Quincke Needle gauge: 22 G Needle length: 3.5 in Assessment Attempts: 2 Additional Notes Failed spinal pt didn't tolerated Preanesthetic Checklist Completed: patient identified, IV checked, site marked, risks and benefits discussed, surgical/procedural consents, equipment checked, pre-op evaluation, timeout performed, anesthesia consent given, oxygen available, monitors applied/VS acknowledged, fire risk safety assessment completed and verbalized and blood product R/B/A discussed and consented us Sinan Khan APRN - RONNIE ANESTHESIA ORDERABL ES Final Result * POCT Glucose (03/24/2025 8:49 AM EDT) POC Glucose 101 03/24/2025 8:49 AM EDT [facility] Blood Whole 03/24/2025 8:49 AM EDT 03/24/2025 8:49 AM EDT Narrative [facility] - 03/24/2025 8:50 AM EDT Ordered by an unspecified provider us Unknown Provider Result POINT OF CARE TEST ORDER LEANA Final Result Performing Organization Address City/State/[facility] Co de Phone Number [address] [address] * RAVINDRA TYREL DIGITAL SCREEN BILATERAL (05/26/2024) Anatomical Region Laterality Modality Breast Bilateral Mammography us Jeovany Betancourt MD IMG MAMMOGRAPHY ORDERABLES Fi nal Result from Last 3 Months or Most Recently Relevant to Health Maintenance Insurance [employer] Member Subscriber Plan / Payer (Ef fective 2024-Present) Name:Nicolette Olguin Relation to Subscriber:Self Name:Nicolette Olguin Payer ID:Not on file Group ID:Not on file Type:Not on file Address: [place] [id number] Member Subscriber Plan / Payer (Ef fective 2024-Present) Name:Nicolette Olguin Relation to Subscriber:Self Name:Nicolette Olguin Payer ID:Not on file Group ID:Not on file Type:Not on file Address: [address] [facility] Advance Directives Documents on File Type Date Recorded Patient Ceo And President Expl anation ACP-Advance Directive 03/24/2025 8:21 AM L IVING WILL * Full Code (Latest Code Status on File) Date Activated Date Inactivated Comments 03/24/2025 8:13 AM 03/26/2025 3:23 PM * Full Code Date Activated Date Inactivated Comments 06/02/2018 11:51 AM 06/03/2018 2:34 PM * Full Code Date Activated Date Inactivated Comments 06/02/2018 5:55 AM 06/02/2018 11:50 AM Care Teams Explosive Operator Fuse Relationship Specialty Start Date End Date Janina Castro MD PCP - General Family Medicine 04/10/18
--- OUTSIDE RECORDS SUMMARY | 2025-03-30 10:54 | XMS_ITS | Encounter Summary ---
Author Organization [facility] Address [address] [place] [address] Care Team Providers Care Telecommunication Equipment Repairer Name Role Phone Janina Castro MD Primary Care Provider [phone] Encounter Details Date Type Department Care Team (Latest Contact Info) Description 03/24/2025 Travel Social History Tobacco Use Types Packs/Day Years Used Date Smoking Tobacco: Former Smokeless Tobacco: Never Alcohol Use Standard Drinks/Week Comments No 0 (1 standard drink = 0.6 oz pur e alcohol) [facility] Utilities Answer Date Recorded In the [...] any time in the past 12 m ont, were you homeless or living in a [...] Description 05/16/2025 11:10 AM EDT Office Visit [facility]OLOGY Part of [address] [place] [address] Shelby Castillo APRN - [address] [place], [place] [phone] yearly--last seen by Dr Gutierrez documented as of this encounter Visit Diagnoses Not on filedocumented in this encounter Additional Health Concerns Assessment Noted Time A fall risk assessment has been complete d for the patient 03/23/2018 10:41 AM EDT A Body Mass Index follow-up plan has been documented for the patient 07/23/2021 11:10 AM EDT documented as of this encounter Care Teams Telecommunication Equipment Repairer Relationship Specialty Start Date End Date Janina Castro MD PCP - General Family Medicine 04/10/18 documented as of this encounter
--- OUTSIDE RECORDS SUMMARY | 2025-03-30 10:54 | XMS_ITS | Encounter Summary ---
Author Organization [facility] Address [address] [place] [address] Care Team Providers Care It Service Continuity Supervisor Name Role Phone Janina Castro MD Primary Care Provider [phone] Source Comments In the event this information is protected by the Federal Confidentiality of Alcohol and Drug AbusePatient Records regulations: The Federal rules restrict any use of the information to criminally investigate or prosecute any alcohol or drug abuse patient.[facility] Encounter Details Date Type Department Care Team (Late st Contact Info) Description 10/24/2017 Get Medical Advice Endocrinology [address] [facility] FIRST FLOOR, [address] [place] [address] [place] [address] [facility] [address] [place] [address] RE: Medication Question (Not Renewal) Social History [...] on filedocumented in this encounter Care Teams It Service Continuity Supervisor Relationship Specialty Start Date End Date Janina Castro MD [address] [place] [address] PCP - General Family Medicine 07/17/17 documented as of this encounter
--- OUTSIDE RECORDS SUMMARY | 2025-03-30 10:54 | XMS_ITS | Encounter Summary ---
Author Organization [facility] Address [address] [place] [address] Phone Care Team Providers Care Vice President Of Advertising Name Role Phone Janina Castro MD Primary Care Provider [phone] Encounter Details Date Type Department Care Team (Latest Contact Info) Description 03/16/2025 Travel Social History Tobacco Use Types Packs/Day [...] Info) Description 02/16/2026 9:45 AM EDT [facility] [address] [place] [phone] 03/01/2026 10:30 AM EDT Office Visit [address] [place] [phone] Lul Rose DO [address] [facility] [address], [address] [place] [address] documented as of this encounter Visit Diagnoses Not on filedocumented in this encounter Additional Health Concerns Assessment Noted Time A fall risk assessment has been complete d for the patient 02/25/2024 10:28 AM EDT documented as of this encounter Care Teams Vice President Of Advertising Relationship Specialty Start Date End Date Janina Castro MD [address] [place] [address] PCP - General 04/03/21 documented as of this encounter
--- OUTSIDE RECORDS SUMMARY | 2025-03-30 10:54 | XMS_ITS | Encounter Summary ---
Author Organization [facility] Address [address] [place] [address] Phone Care Team Providers Care Or Assistant Name Role Phone Janina Castro MD Primary Care Provider [phone] Encounter Details Date Type Department Care Team (Late st Contact Info) Description 03/22/2025 Telephone [place] [id number] [address] Lisette Dunn RN Social History Tobacco Use Types Packs/Day Years Used Date Smoking Tobacco: Former Cigarettes Q uit: 1987 Smokeless Tobacco: Never Alcohol Use Standard Drinks/Week [...] encounter Miscellaneous Notes * Telephone Encounter - Lisette Dunn RN - 03/22/2025 12:[address] Rose . Lexiscan stress test reviewed. Normal study. Patient may proceed with knee surgery. [facility] Medical Clearance Form completed and faxed. Surgeon Dr Jeramie Younger- [phone] [phone] documented in this encounter Plan of Treatment Upcoming Encounters Date Type Department Care Team (Late st Contact Info) Description 02/16/2026 9:45 AM EDT Appointment [facility] [address] [facility] [address] [place] [phone] 03/01/2026 10:30 AM EDT Office Visit [place] [address] [facility] [address] [place] [phone] Lul Rose [facility], [address] [place] [address] documented as of this encounter Visit Diagnoses Not on filedocumented in this encounter Additional Health Concerns Assessment Noted Time A fall risk assessment has been complete d for the patient 02/25/2024 10:28 AM EDT documented as of this encounter Care Teams Or Assistant Relationship Specialty Start Date End Date Janina Castro MD [address] [place] [address] [place] [address] PCP - General 04/03/21 documented as of this encounter
--- OUTSIDE RECORDS SUMMARY | 2025-03-30 10:54 | XMS_ITS | Encounter Summary ---
Author Organization [facility] Address [address] [place] [address] Care Team Providers Care Water Inspector Name Role Phone Janina Castro MD Primary Care Provider [phone] Source Comments In the event this information is protected by the Federal Confidentiality of Alcohol and Drug AbusePatient Records regulations: The Federal rules restrict any use of the information to criminally investigate or prosecute any alcohol or drug abuse patient.[facility] Encounter Details Date Type Department Care Team (Late st Contact Info) Description 10/15/2017 Get Medical Advice Endocrinology [address] [facility] FIRST FLOOR, [address] [place] [address] [place] [address] [facility] [address] [place] [address] RE: Visit Follow Up Question Social History [...] on filedocumented in this encounter Care Teams Water Inspector Relationship Specialty Start Date End Date Janina Castro MD [address] [place] [address] PCP - General Family Medicine 07/17/17 documented as of this encounter
--- OUTSIDE RECORDS SUMMARY | 2025-03-30 10:54 | XMS_ITS | Encounter Summary ---
Author Organization [facility] Address [address] [place] [address] Care Team Providers Care Blow Down Helper Name Role Phone Janina Castro MD Primary Care Provider [phone] Source Comments In the event this information is protected by the Federal Confidentiality of Alcohol and Drug AbusePatient Records regulations: The Federal rules restrict any use of the information to criminally investigate or prosecute any alcohol or drug abuse patient.[facility] Encounter Details Date Type Department Care Team (Late st Contact Info) Description 08/29/2017 Get Medical Advice Endocrinology [address] [facility] FIRST FLOOR, [address] [place] [address] [place] [address] [facility] [address] [place] [address] Medication Question (Not Renewal) Social History Tobacco [...] on filedocumented in this encounter Care Teams Blow Down Helper Relationship Specialty Start Date End Date Janina Castro MD [address] [place] [address] PCP - General Family Medicine 07/17/17 documented as of this encounter
--- OUTSIDE RECORDS SUMMARY | 2025-03-30 10:54 | XMS_ITS | Encounter Summary ---
Author Organization [facility] Address [facility] [place] [address] Care Team Providers Care Civil Designer Name Role Phone Janina Castro MD Primary Care Provider [phone] Source Comments In the event this information is protected by the Federal Confidentiality of Alcohol and Drug AbusePatient Records regulations: The Federal rules restrict any use of the information to criminally investigate or prosecute any alcohol or drug abuse patient.[facility] Encounter Details Date Type Department Care Team ([facility] Contact Info) Description 04/27/2019 Patient Msg Medical Records [address] [place] [address] Provider, Ccf Prescribed Patient Education Video(s) Social [...] on filedocumented in this encounter Care Teams Civil Designer Relationship Specialty Start Date End Date Janina Castro MD [address] [place] [address] PCP - General Family Medicine 07/17/17 documented as of this encounter
--- OUTSIDE RECORDS SUMMARY | 2025-03-30 10:55 | XMS_ITS | Encounter Summary ---
Author Organization [facility] Address [address] [place] [address] Phone Care Team Providers Care Forming And Assembling Supervisor Name Role Phone Janina Castro MD Primary Care Provider [phone] Encounter Details Date Type Department Care Team (Late st Contact Info) Description 02/13/2021 Orders Only [facility] LEGACY [address] [place] [address] Conversion, Onbase Social History Tobacco Use Types [...] Info) Description 02/16/2026 9:45 AM EDT Appointment Mariela [address] [place] [address] 03/01/2026 10:30 AM EDT Office Visit [address] [place] [address] Lul Rose DO [address] [facility] [address], [address] [place] [address] Scheduled Orders Name Type Priority Associated Diagnoses Orde r Schedule OUTSIDE LAB SCAN Lab Ordered: 02/13/2021 OUTSIDE LAB SCAN Lab Ordered: 02/13/2021 documented as of this encounter Visit Diagnoses Not on filedocumented in this encounter Care Teams Forming And Assembling Supervisor Relationship Specialty Start Date End Date Janina Castro MD [address] [place] [address] PCP - General 04/03/21 documented as of this encounter
--- OUTSIDE RECORDS SUMMARY | 2025-03-30 10:55 | XMS_ITS | Encounter Summary ---
Author Organization [facility] Address [address] [place] [address] Care Team Providers Care Wireless Telegrapher Name Role Phone Janina Castro MD Primary Care Provider [phone] Source Comments In the event this information is protected by the Federal Confidentiality of Alcohol and Drug AbusePatient Records regulations: The Federal rules restrict any use of the information to criminally investigate or prosecute any alcohol or drug abuse patient.[facility] Encounter Details Date Type Department Care Team (Late st Contact Info) Description 10/04/2019 Get Medical Advice [facility] [address] [place] [address] [place] [address] [facility] [address] [place] [address] RE: Visit Follow Up Question Social History [...] on filedocumented in this encounter Care Teams Wireless Telegrapher Relationship Specialty Start Date End Date Janina Castro MD [address] [place] [address] PCP - General Family Medicine 07/17/17 documented as of this encounter
--- OUTSIDE RECORDS SUMMARY | 2025-03-30 10:55 | XMS_ITS | Encounter Summary ---
Author Organization [facility] tem Address [facility] [place] [place]-[id number] [address] [facility] [place] [address] Care Team Providers Care Ramp Agent Name Role Phone Unavailable Primary Care Provider Unavailabl e Encounter Details Date Type Department Care Team (Late st Contact Info) Description 04/21/2023 Orders Only [facility] [address] [place] [address] Ref Prov, [place] [address] Social History Tobacco Use Types Packs/Day Years [...]
--- OUTSIDE RECORDS SUMMARY | 2025-03-30 10:55 | XMS_ITS | Encounter Summary ---
Author Organization [facility] tem Address [facility] [id number] [address] [place] [address] Care Team Providers Care Sat Act Instructor Name Role Phone Unavailable Primary Care Provider Unavailabl e Encounter Details Date Type Department Care Team (Late st Contact Info) Description 04/17/2023 Orders Only [facility] [address] [place] [address] Janina Castro MD [address] [place] [address] Social History Tobacco Use Types [...]
--- OUTSIDE RECORDS SUMMARY | 2025-03-30 10:55 | XMS_ITS | Encounter Summary ---
Author Organization [facility] Address [address] [place] [address] Care Team Providers Care Hospice Aide Name Role Phone Janina Castro MD Primary Care Provider [phone] Source Comments In the event this information is protected by the Federal Confidentiality of Alcohol and Drug AbusePatient Records regulations: The Federal rules restrict any use of the information to criminally investigate or prosecute any alcohol or drug abuse patient.[facility] Encounter Details Date Type Department Care Team (Late st Contact Info) Description 04/14/2018 Patient Msg Endocrinology [address] [facility] FIRST FLOOR, [address] [place] [address] [place] [address] [facility] [address] [place] [address] RE:hyperthyroidism & hysterectomy Social History Tobacco Use [...] on filedocumented in this encounter Care Teams Hospice Aide Relationship Specialty Start Date End Date Janina Castro MD [address] [place] [address] PCP - General Family Medicine 07/17/17 documented as of this encounter
--- OUTSIDE RECORDS SUMMARY | 2025-03-30 10:55 | XMS_ITS | Encounter Summary ---
Author Organization [facility] Address [address] [place] [address] Phone Care Team Providers Care Powdered Sugar Supervisor Name Role Phone Janina Castro MD Primary Care Provider [phone] Encounter Details Date Type Department Care Team (Late st Contact Info) Description 07/10/2023 Scanned Document [facility] [address] [place] [address] Scanning, Generic Provider Social History Tobacco Use [...] Info) Description 02/16/2026 9:45 AM EDT App[facility]ment [facility] [address] [facility] [address] [place] [address] 03/01/2026 10:30 AM EDT Office Visit [address] [place] [address] Lul Rose DO [address]03 [facility] [address], [address] [place], [place] [phone] documented as of this encounter Visit Diagnoses Not on filedocumented in this encounter Care Teams Powdered Sugar Supervisor Relationship Specialty Start Date End Date Janina Castro MD [facility] [facility] [place] [address] [place] [address] PCP - General 04/03/21 documented as of this encounter
--- OUTSIDE RECORDS SUMMARY | 2025-03-30 10:55 | XMS_ITS | Encounter Summary ---
Author Organization [facility] Address [address] [place] [address] Phone Care Team Providers Care Audio Visual Technician Name Role Phone Janina Castro MD Primary Care Provider [phone] Encounter Details Date Type Department Care Team (Late st Contact Info) Description 04/25/2020 Orders Only [facility] LEGACY [address] [place] [address] Conversion, Onbase Social History Tobacco Use Types [...] Description 02/16/2026 9:45 AM EDT Appointment Mariela [address] [place] [address] 03/01/2026 10:30 AM EDT Office Visit [address] [place] [address] Lul Rose DO [address] [facility] [address], [address] [place] [address] Scheduled Orders Name Type Priority Associated Diagnoses Orde r Schedule OUTSIDE LAB SCAN Lab Ordered: 04/25/2020 documented as of this encounter Visit Diagnoses Not on filedocumented in this encounter Care Teams Audio Visual Technician Relationship Specialty Start Date End Date Janina Castro MD [address] [place], [place] [address] PCP - General 04/03/21 documented as of this encounter
--- OUTSIDE RECORDS SUMMARY | 2025-03-30 10:55 | XMS_ITS | Encounter Summary ---
Author Organization [facility] Address [address] [place] [address] Phone Care Team Providers Care Java Front End Web Developer Name Role Phone Janina Castro MD Primary Care Provider [phone] Encounter Details Date Type Department Care Team (Late st Contact Info) Description 02/28/2023 Orders Only [facility] LEGACY [address] [place] [address] Conversion, Onbase Social History Tobacco Use Types [...] Description 02/16/2026 9:45 AM EDT Appointment Mariela [address] [place] [address] 03/01/2026 10:30 AM EDT Office Visit [address] [place] [address] Lul Rose DO [address] [facility] [address], [address] [place] [address] Scheduled Orders Name Type Priority Associated Diagnoses Orde r Schedule OUTSIDE LAB SCAN Lab Ordered: 02/28/2023 documented as of this encounter Visit Diagnoses Not on filedocumented in this encounter Care Teams Java Front End Web Developer Relationship Specialty Start Date End Date Janina Castro MD [address] [place], [place] [id number] PCP - General 04/03/21 documented as of this encounter
--- OUTSIDE RECORDS SUMMARY | 2025-03-30 10:55 | XMS_ITS | Encounter Summary ---
Author Organization [facility] Address [address] [place] [address] Phone Care Team Providers Care Boat And Plant Utility Supervisor Name Role Phone Janina Castro MD Primary Care Provider Encounter Details Date Type Department Care Team (Late st Contact Info) Description 06/11/2020 Orders Only [facility] LEGACY [address] [place] [address] Conversion, Onbase Social History Tobacco Use Types [...] Description 02/16/2026 9:45 AM EDT Appointment Mariela [address] [place] [address] 03/01/2026 10:30 AM EDT Office Visit [address] [place] [address] Lul Rose DO [address] [facility] [address], [address] [place] [address] Scheduled Orders Name Type Priority Associated Diagnoses Orde r Schedule OUTSIDE LAB SCAN Lab Ordered: 06/11/2020 documented as of this encounter Visit Diagnoses Not on filedocumented in this encounter Care Teams Boat And Plant Utility Supervisor Relationship Specialty Start Date End Date Janina Castro MD [address] [place], [place] [phone] PCP - General 04/03/21 documented as of this encounter
--- OUTSIDE RECORDS SUMMARY | 2025-03-30 10:55 | XMS_ITS | Clinical Summary ---
Author Organization [facility] Address [address] [place] [address] Phone Care Team Providers Care Bingo Clerk Name Role Phone Janina Castro MD Primary Care Provider [phone] Allergies Active Allergy Reactions Criticality Noted Date [...] tablet by mouth once daily. Active omega 2-rbp-yub-fish oil (Fish OiL) 1,000 mg (120 mg-180 mg) capsule Take 1 capsule (1,000 mg) by mouth once daily. Active levothyroxine (Synthroid, Levoxyl) 100 mcg tablet Take 1 tablet (100 mcg) by mouth every other day. Active TURMERIC ORAL Take 1 capsule by mouth once daily. Active glucosamine-chond roitin 500-400 mg tablet Take 1 tablet by mouth early in the morning.. Active metoprolol succinate XL (Toprol-XL) 25 mg 24 hr tabletIndications :Essential hypertension Take 1 tablet (25 mg) by mouth once daily. 90 tablet 3 4 04/12/20 25 Active diclofenac (Voltaren) 75 mg EC tablet Take 1 tablet (75 mg) by mouth if needed (pain). Do not crush, chew, or split. Active Active Problems Problem Noted Date Diagnosed Date Preop cardiovascular exam 02/24/2025 ASHD (arteriosclerotic heart disease) 02/25/2024 BMI 29.0-29.9,adult 02/25/2024 Bilateral carotid artery stenosis 06/07/2023 Dizziness 06/07/2023 Essential hypertension 06/07/2023 History of PTCA 06/07/2023 Hyperlipidemia 06/07/2023 Myocardial infarction (Multi) 06/07/2023 PFO (patent foramen ovale) ([facility]) 06/07/2023 TIA (transient ischemic attack) 06/07/2023 Former smoker 06/07/2023 Resolved Problems Problem Noted Date Diagnosed Date Resolved Date Class 1 obesity with alveola r hypoventilation and body mass index (BMI) of 30.0 to 30.9 in adult 06/07/2023 02/25/2024 Encounters Date Type Department Care Team Description 03/22/[address] [place] [address] Lisette Dunn RN 03/17/2025 7:33 AM EDT - 03/17/2025 11:59 PM EDT Hospital Encounter [place] [address] [place] [address] Discharge Disposition: Home 03/17/2025 7:33 AM EDT - 03/17/2025 11:59 PM EDT Hospital Encounter [address] [place] [phone] Discharge Disposition: Home 03/17/2025 7:33 AM EDT Hospital Encounter [place] [address] [address] Discharge Disposition: Home 03/17/2025 7:32 AM EDT Hospital Encounter [place] [address] [phone] Discharge Disposition: Home 03/17/2025 7:31 AM EDT Hospital Encounter [address] [place] [address] Preop cardiovascular exam; ASHD (arteriosclerotic heart disease); History of PTCA; Myocardial infarction, unspecified UT type, unspecified artery (Multi); Essential hypertension Discharge Disposition: Home 03/17/2025 Travel 03/16/2025 Travel 03/10/2025 Travel 02/24/2025 10:30 AM EDT Office Visit [address] [phone] Margi Wang DO Preop cardiovascular exam; ASHD (arteriosclerotic heart disease); History of PTCA; Myocardial infarction, unspecified UT type, unspecified artery (Multi); Mixed hyperlipidemia; Essential hypertension; PFO (patent foramen ovale) ([facility]); Bilateral carotid artery stenosis; TIA (transient ischemic attack); Former smoker; BMI 29.0-29.9,adult 02/24/[address] [place] [address] Shayy Crawley LPN Lab Orders [...] No / Unsure 03/17/2025 7:31 AM EDT Last Filed Vital Signs Vital Sign Reading Time Taken Comments Blood Pressure 128/82 03/17/2025 8:59 AM EDT Pulse 48 03/17/2025 8:59 AM EDT Temperature - - Respiratory Rate [...] Info) Description 02/16/2026 9:45 AM EDT Appointment [address] [place] [address] 03/01/2026 10:30 AM EDT Office Visit [address] [place] [address] Margi Wang DO 703 [facility] 2, [address] [place] [address] Health Maintenance Due Date Last Done Comments [...] on patient's age to complete this topic Procedures Procedure Name Priority Date/Time Associated Diagnosis Comments STRESS TEST, REGAD[place] W MYOCARDIAL PERFUSION SPECT (MULTI STUDY) Routine 03/17/2025 10:13 AM EDT Preop cardiovascular exam ASHD (arteriosclerotic heart disease) History of PTCA Myocardial infarction, unspecified UT type, unspecified artery (Multi) Essential hypertension from Last 3 Months Results * STRESS TEST, REGAD[place] W MYOCARDIAL [...] Neha Roman 03/17/2025 4:40 PM Dictation workstation: [id number] Narrative 03/17/2025 4:40 PM EDT Interpreted By: Neha Roman and Giannuzzi Michael STUDY: MYOCARDIAL PERFUSION STRESS TEST WITH LEXISCAN Performing facility: [facility], [address] [place] [address], [address], [address] Provider: Sintia Wang DO, [place] PCP: Dr. Gloria Castro Supervising provider: Sintia Wang DO, FACLuis Fernando INDICATION: Signs/Symptoms:poc, cad, htn. ,Z01.810 Encounter for preprocedural cardiovascular examination,I25.10 Atherosclerotic heart disease of [place] coronary artery without angina pectoris,Z98.61 Coronary angioplasty status,I21.9 Acute myocardial infarction, unspecified,I10 Essential (primary) hypertension HISTORY: Gender: F; Age: 74 y/o ; Height: HT 162.6 cm cm; Weight: WT 78.019 kg kg. CAD; High Cholesterol; Previous UT;2017 Quit smoking 38 years ago. Cardiac catheterization on 2016. 2016 COMPARISON: No comparison. ACCESSION NUMBER(S): [id number] ORDERING CLINICIAN: MARGI WANG TECHNIQUE: ONE DAY [...] PERFUSION STRESS TEST WITH LEXISCAN Performing facility: [facility], [address] [place] [address], [address] [id number] [facility] Provider: Sintia Wang DO, FACC PCP: Dr. Gloria Castro Supervising provider: Sintia Wang DO, FACLuis Fernando INDICATION: Signs/Symptoms:poc, cad, htn. ,Z01.810 Encounter for preprocedural cardiovascular examination,I25.10 Atherosclerotic heart disease of [place] coronary artery without angina pectoris,Z98.61 Coronary angioplasty status,I21.9 Acute myocardial infarction, unspecified,I10 Essential (primary) hypertension HISTORY: Gender: F; Age: 74 y/o ; Height: HT 162.6 cm cm; Weight: WT 78.019 kg kg. CAD; High Cholesterol; Previous UT;2016 Quit smoking 38 years ago. Cardiac catheterization on 2016 COMPARISON: No comparison. ACCESSION NUMBER(S): [id number] ORDERING CLINICIAN: MARGI WANG TECHNIQUE: ONE DAY [...] Neha Roman 03/17/2025 4:40 PM Dictation workstation: [id number] Margi Wang DO CV STRESS PROCEDURES Final Result from Last 3 Months Insurance MEDICARE [facility] Care Teams Bingo Clerk Relationship Specialty Start Date End Date Janina Castro MD [address] [place] [address] [place] [address] PCP - General 04/03/21
--- OUTSIDE RECORDS SUMMARY | 2025-03-30 10:55 | XMS_ITS | Encounter Summary ---
Author Organization [facility] Address [address] [place] [address] Phone Care Team Providers Care Morning Show Host Name Role Phone Janina Castro MD Primary Care Provider [phone] Encounter Details Date Type Department Care Team (Late st Contact Info) Description 08/26/2019 Orders Only [facility] LEGACY [address] [place] [address] Conversion, Onbase Social History Tobacco Use Types [...] Description 02/16/2026 9:45 AM EDT Appointment Mariela [address] [place] [phone] 03/01/2026 10:30 AM EDT Office Visit [address] [place] [address] Lul Rose DO [address] [facility] [address], [address] [place] [address] Scheduled Orders Name Type Priority Associated Diagnoses Orde r Schedule OUTSIDE LAB SCAN Lab Ordered: 08/26/2019 OUTSIDE LAB SCAN Lab Ordered: 08/26/2019 documented as of this encounter Visit Diagnoses Not on filedocumented in this encounter Care Teams Morning Show Host Relationship Specialty Start Date End Date Janina Castro MD [address] [place] [address] PCP - General 04/03/21 documented as of this encounter
--- OUTSIDE RECORDS SUMMARY | 2025-03-30 10:55 | XMS_ITS | Data Portability ---
Author Organization [place] - [facility] Address [address] [place] [address] Assessment Encounter Date Assessment Date Assessment LastModified [...] reviewed. Chronic history of low back pain. Onpt-lfl-zvbsrve medications reviewed. Avoid NSAIDs. Follow clinically. Obesity. Lose weight. Dietary precautions reviewed. Osteoarthritis. Currently, asymptomatic. Medication/over- the-counter medications reviewed. Lose weight and exercise. Osteopenia. Patient will have bone density evaluation. Continue calcium and vitamin D supplementation. Weightbearing exercises. [email or web address] Not available 12/08/2013 10:37:06 12/23/2013 12/23/2013 See history of present illness. Recent colonoscopy was normal. Abdominal pain is still persistent however, not getting worse. Patient still describes, right lower quadrant/low abdominal pain. CT, abdomen pelvis was reviewed [...] sis microsc opic - STAT 2013 014 [email or web address] Not available 4 16:43:41 Referral gastroe nterolo gist referra l - Screeni ng Colonsc opy 2013 014 MARIAELENA Stewart Davidson MD ([facility]), [address], [address], [place], [address], 4 14:05:51 Procedures None recorde d. Surgeries None recorde d. Imaging XR, knee, 4 or more view 2022 023 [email or web address] In-Office Order, Internal Use Only DO Not Attach Compendium DO Not Attach Compendium, Do Not Delete/merge, [id number] 3 12:11:12 bone density study 2013 014 [...] 0.3 % eye drops 2013 014 sshariff [id number], [address] [facility] [place], [address], 4 14:24:29 Patient TargetsNo targets recorded. Patient Instructions Encounter Date Encounter Id Patient Instructions Last Modified By Organization Details Last Modified Time 10/28/2013 [id number] Pt encouraged to consume a diet low in carbs, fat and calories. Encouraged to participate in non-weight bearing/aerobic exercise at least 30 minutes/day x 5 days/week. Encouraged to avoid tobacco products and consume alcohol in moderation. Encouraged to balance work with pleasure. sshariff Not available 12/08/2013 10:36:06 12/23/2013 [id number] Pt encouraged to consume a diet low in carbs, fat and calories. Encouraged to participate in non-weight bearing/aerobic exercise at least 30 minutes/day x 5 days/week. Encouraged to avoid tobacco products and consume alcohol in moderation. Encouraged to balance work with pleasure. [email or web address] Not available 12/23/2013 14:25:47 11/11/2022 [id number] I discussed the therapeutic options with the patient. We went over X-rays. I discussed non-op versus operative treatment. We will treat non-op for now. We proceeded with a cortisone injection of the right knee. Patient was given a set of home exercises. Patient is to rest ice and elevate. The patient may take xewh-sfh-ybwzvty medication for pain control. Instructed activity modification. [...] WBC 7.0 K/uL 3.6-11 .2 Not Available [facility] (Lab/Imaging) [address] [place], [address], 08/16/2015 13:45:31 08/16/20 15 08/16/2015 CBC w/ auto diff RBC 4.30 M/uL 3.63-4 .92 Not Available [facility] (Lab/Imaging) [address] [place], [address], 08/16/2015 13:45:31 08/16/20 15 08/16/2015 CBC w/ auto diff HGB 13.0 g/dL 10.9-1 4.3 Not Available [facility] (Lab/Imaging) [address] [place], [address], 08/16/2015 13:45:31 08/16/20 15 08/16/2015 CBC w/ auto diff HCT 40.5 % 31.2-4 1.9 Not Available [facility] (Lab/Imaging) [address] [place], [address], 08/16/2015 13:45:31 08/16/20 15 08/16/2015 CBC w/ auto diff MCV 94.0 fL 78.5-1 00.5 Not Available [facility] (Lab/Imaging) [address] [place], [address], 08/16/2015 13:45:31 08/16/20 15 08/16/2015 CBC w/ auto diff MCH 30.1 pg 24.5-3 4.5 Not Available [facility] (Lab/Imaging) [address] [place], [address], 08/16/2015 13:45:31 08/16/20 15 08/16/2015 CBC w/ auto diff MCHC 32.0 g/dL 32.5-3 5.8 low Not Available [facility] (Lab/Imaging) [address] [place], [address], 08/16/2015 13:45:31 08/16/20 15 08/16/2015 CBC w/ auto diff rdwcv 13.7 % 12.3-1 7.0 Not Available [facility] (Lab/Imaging) [address] [place], [address], 08/16/2015 13:45:31 08/16/20 15 08/16/2015 CBC w/ auto diff platelet count 192 K/uL 140-40 0 Not Available [facility] (Lab/Imaging) [address] [place], [address], 08/16/2015 13:45:31 08/16/20 15 08/16/2015 CBC w/ auto diff MPV 11.0 fL 7.5-11 .2 Not Available [facility] (Lab/Imaging) [address] [place], [address], 08/16/2015 13:45:31 08/16/20 15 08/16/2015 CBC w/ auto diff neutrophils 63.9 % Not Available [facility] (Lab/Imaging) [address] [place], [address], 08/16/2015 13:45:31 08/16/20 15 08/16/2015 CBC w/ auto diff lymphocytes 24.1 % Not Available [facility] (Lab/Imaging) [address] [place], [address], 08/16/2015 13:45:31 08/16/20 15 08/16/2015 CBC w/ auto diff monocytes 7.7 % Not Available [facility] (Lab/Imaging) [address] [place], [address], 08/16/2015 13:45:31 08/16/20 15 08/16/2015 CBC w/ auto diff eosinophils 3.2 % Not Available [facility] (Lab/Imaging) [address] [place], [address], 08/16/2015 13:45:31 08/16/20 15 08/16/2015 CBC w/ auto diff basophils 1.1 % Not Available [facility] (Lab/Imaging) [address] [place], [address], 08/16/2015 13:45:31 08/16/20 15 08/16/2015 CBC w/ auto diff absolute neutrophils 4.40 K/uL 1.80-7 .80 Not Available [facility] (Lab/Imaging) [address] [place], [address], 08/16/2015 13:45:31 08/16/20 15 08/16/2015 CBC w/ auto diff absolute lymphocytes 1.70 K/uL 1.00-3 .00 Not Available [facility] (Lab/Imaging) [address] [place], [address], 08/16/2015 13:45:31 08/16/20 15 08/16/2015 CBC w/ auto diff absolute monocytes 0.50 K/uL 0.30-1 .00 Not Available [facility] (Lab/Imaging) [address] [place], [address], 08/16/2015 13:45:31 08/16/20 15 08/16/2015 CBC w/ auto diff absolute eosinophils 0.20 K/uL 0.00-0 .50 Not Available [facility] (Lab/Imaging) [address] [place], [address], 08/16/2015 13:45:31 08/16/20 15 08/16/2015 CBC w/ auto diff absolute basophils 0.10 K/uL 0.00-0 .10 [facility] [address] [place] [address] Raul Luther M.D. Lab Direc anthony ANDERSON NT: BRENDON Cerna [address] LOC: [facility],, BILL# : [id number] SEX: F : 07/11 ORDER ED BY: ROSALIND FF ORDER ED : 08/16 11:17 COLLE CTED: [...] 3.2 % Basop hils 1.1 % Absol eek Neutr ophil s 4.40 K/uL 1.80- 7.80 Absol eek Lymph ocyte s 1.70 K/uL 1.00- 3.00 Absol eek Monoc ytes 0.50 K/uL 0.30- 1.00 Absol eek Eosin ophil s 0.20 K/uL 0.00- 0.50 Absol eek Basop hils 0.10 K/uL 0.00- 0.10 ----- ----- ----- ----- ----- ----- ----- ----- ----- ----- ----- ----- ----- ----- ----- -- Not Available [facility] (Lab/Imaging) [address] [place], [address], 08/16/2015 13:45:31 08/16/20 15 08/16/2015 BMP, serum or plasm a sodium 142 mmol/ L 136-14 5 Not Available [facility] (Lab/Imaging) [address] [place], [address], 08/16/2015 14:09:50 08/16/20 15 08/16/2015 BMP, serum or plasm a potassium 4.0 mmol/ L 3.6-5. 1 Not Available [facility] (Lab/Imaging) [address] [place], [address], 08/16/2015 14:09:50 08/16/20 15 08/16/2015 BMP, serum or plasm a chloride 110 mmol/ L 98-110 Not Available [facility] (Lab/Imaging) [address] [place], [address], 08/16/2015 14:09:50 08/16/20 15 08/16/2015 BMP, serum or plasm a CO2 26 mmol/ L 22-32 Not Available [facility] (Lab/Imaging) [address] [place], [address], 08/16/2015 14:09:50 08/16/20 15 08/16/2015 BMP, serum or plasm a anion gap 6.0 5.0-15 .0 Not Available [facility] (Lab/Imaging) [address] [place], [address], 08/16/2015 14:09:50 08/16/20 15 08/16/2015 BMP, serum or plasm a glucose 109 mg/dL 65-99 high Not Available [facility] (Lab/Imaging) [address] [place], [address], 08/16/2015 14:09:50 08/16/20 15 08/16/2015 BMP, serum or plasm a BUN 11 mg/dL 7-18 Not Available [facility] (Lab/Imaging) [address] [place], [address], 08/16/2015 14:09:50 08/16/20 15 08/16/2015 BMP, serum or plasm a creatinine 0.7 mg/dL 0.6-1. 3 Not Available [facility] (Lab/Imaging) [address] [place], [address], 08/16/2015 14:09:50 08/16/20 15 08/16/2015 BMP, serum or plasm a BUN/creatine ratio 15.7 8.0-20 .0 Not Available [facility] (Lab/Imaging) [address] [place], [address], 08/16/2015 14:09:50 08/16/20 15 08/16/2015 BMP, serum or plasm a estimated GFR >60.0 mL/mi n/1.7 3sq_m >60 * *Leila mated GFR is used to detec t Renal Failu re. Lselie l Range Value s have not been estab lishe d. Chron ic Kidne y Disea se = < 60 ml/mi n/1.7 3sq.m Kidne y Failu re = < 15 ml/mi n/1.7 3sq.m If patie nt is [place] an Ameri can, multi ply resul t by 1.21 to calcu late EGFR. Not Available [facility] (Lab/Imaging) [address] [place], [address], 08/16/2015 14:09:50 08/16/20 15 08/16/2015 BMP, serum or plasm a calcium 9.0 mg/dL 8.5-10 .1 [facility] [address] , [place] [address] Raul Luther M.D. Lab Direc tor PATIE NT: BRENDON CAMPBELL B [address] LOC: [facility],, BILL# : [id number] SEX: F : 07/11 ORDER ED [...] ----- ----- ----- ----- -- Not Available [facility] (Lab/Imaging) [address], [place], [address], 08/16/2015 14:09:50 08/16/20 15 08/16/2015 amyla se, serum or plasm a amylase 46 U/L 25-115 [facility] [address] [place] [address] Raul Luther M.D. [facility]: [place] [address] LOC: [facility] BILL# : [id number] SEX: F : 07/11 ORDER ED [...] ----- ----- ----- ----- -- Not Available [facility] (Lab/Imaging) [address] [place], [address], 08/16/2015 14:09:52 08/16/20 15 08/16/2015 lipas e, serum or plasm a lipase 126 U/L 73-393 [facility] [address] [place] [address] Raul Luther M.D. Lab Direc anthony ANDERSON NT: BRENDON KHOI CAMPBELL B [address] LOC: [facility] BILL# : [id number] SEX: F : 07/11 ORDER ED [...] ----- ----- ----- ----- -- Not Available [facility] (Lab/Imaging) [address] [place], [address], 08/16/2015 14:09:53 08/16/20 15 08/16/2015 hepat ic funct ion panel , serum protein 7.2 g/dL 6.4-8. 2 Not Available [facility] (Lab/Imaging) [address] [place], [address], 08/16/2015 14:11:27 08/16/20 15 08/16/2015 hepat ic funct ion panel , serum albumin 4.0 g/dL 3.4-5. 0 Not Available [facility] (Lab/Imaging) [address] [place], [address], 08/16/2015 14:11:27 08/16/20 15 08/16/2015 hepat ic funct ion panel , serum total bilirubin 0.4 mg/dL 0.2-1. 0 Not Available [facility] (Lab/Imaging) [address] [place], [address], 08/16/2015 14:11:27 08/16/20 15 08/16/2015 hepat ic funct ion panel , serum direct bilirubin 0.1 mg/dL 0.0-0. 2 Not Available [facility] (Lab/Imaging) [address] [place], [address], 08/16/2015 14:11:27 08/16/20 15 08/16/2015 hepat ic funct ion panel , serum indirect bilirubin 0.3 mg/dL 0.0-1. 1 Not Available [facility] (Lab/Imaging) [address] [place], [address], 08/16/2015 14:11:27 08/16/20 15 08/16/2015 hepat ic funct ion panel , serum alkaline phosphatase 82 U/L 45-117 Not Available [facility] (Lab/Imaging) [address] [place], [address], 08/16/2015 14:11:27 08/16/20 15 08/16/2015 hepat ic funct ion panel , serum AST (SGOT) 21 U/L 15-37 Not Available [facility] (Lab/Imaging) [address] [place], [address], 08/16/2015 14:11:27 08/16/20 15 08/16/2015 hepat ic funct ion panel , serum ALT (SGPT) 40 U/L 12-78 [facility] [address] , [place] [address] Raul Luther M.D. Lab Direc anthony ANDERSON NT: BRENDON Cerna [address] LOC: [facility] BILL# : [id number] SEX: F : 07/11 ORDER ED [...] ----- ----- ----- ----- -- Not Available [facility] (Lab/Imaging) [address], [place], [address], 08/16/2015 14:11:27 10/19/19 14 10/19/2013 CT, abdom en and pelvi s No observ ation record ed. [email or web address] [address] [facility] [place], [address], 10/21/2013 09:33:51 11/12/19 14 11/03/2013 graysoni ng/giovana schwarz t No observ ation record ed. [email or web address] Not Available 2013 10:33:48 11/11/19 23 XR, knee, 4 or more view No observ ation record ed. [email or web address] In-Office Order Internal Use Only DO Not Attach Compendium DO Not Attach Compendium, Do Not Delete/merge, [id number] 11/11/2022 11:43:58 Result Notes None recorded. Problems Name Problem SNOMED Code Status Onset Date Resolution Date Notes Provider Name and Address Organization Details Recorded Time Abdominal pain 13706863 Karen Courtney MD [address], [place], [address], [address] 4 10:37:06 Osteoarthritis 049269821 Karen Courtney MD [address], [place], [address], [address] 4 14:29:59 Obesity 594435411 Karen Courtney MD [address], [place], [address], [address] 4 14:24:29 Low back pain 943568093 Karen Courtnye MD [address], [place], [address], [address] 4 14:29:59 Right lower quadrant pain 479374167 Karen Coutrney MD [address], [place], [address], [address] 4 14:29:59 Osteopenia 237575653 Karen Courtney MD [address], [place], [address], [address] 4 14:24:28 Scoliosis deformity of spine 985223327 Karen Courtney MD [address], [place], [address], [address] 4 14:29:59 Conjunctivitis 1185845 Karen Courtney MD [address], [place], [address], [address] 4 14:29:59 Problem Notes None recorded. Procedures Surgical History Date Name Laterality Status Provider Name and Address Organization Details Recorded Time 11/11/19 23 GCI Knee TN RIGHT completed Dawn Tineo DO [address] 11/11/2022 12:09:13 12/24/19 14 Fluorescein eye exam completed Flip Courtney [facility] [address] [facility] [address], [place], [address], [address] 12/23/2013 14:24:29 10/13/19 10 Knee Surgery completed Flip Courtney MD [address] [facility],[address], [place], [address], [address] 10/28/2013 10:24:14 10/13/18 83 Tubal Ligation completed Germaine Pamunkey [address] 12/23/2013 13:38:04 10/13/18 80 Home Aid Surgery completed Flip Courtney MD [address] [facility] [address], [place], [address], [address] 10/28/2013 10:24:14 Tonsillectomy and/or Adenoidectomy completed Arina Patel [address] 10/19/2013 11:24:30 Imaging Results None recorded. Procedure Notes None [...] Address Organization Details Last Updated DateTime 4 62745.5 503 g 59 /min 48 /min 98 % 98 % 97.7 [degF] 165.1 cm 31.6 kg/m2 160 mm[Hg] 84 mm[Hg] Arina Patel [place] - [facility] [place] 4 11:26:38 Date Recorded Body weight Heart rate Respiratory rate Oxygen saturation Oxygen saturation in Arterial blood by Pulse oximetry Body temperature Body height Body mass index (BMI) Systolic blood pressure Diastolic blood pressure Provider Name and Address Organization Details Last Updated DateTime 4 77848.1 98492 g 65 /min 16 /min 98 % 98 % 98.5 [degF] 165.1 cm 34.1 kg/m2 140 mm[Hg] 82 mm[Hg] Melissadavid Castroe [address] 4 09:54:14 Date Recorded Body weight Heart rate Respiratory rate Oxygen saturation Oxygen saturation in Arterial blood by Pulse oximetry Body temperature Body height Body mass index (BMI) Systolic blood pressure Diastolic blood pressure Provider Name and Address Organization Details Last Updated DateTime 4 26246.8 4348 g 55 /min 18 /min 98 % 98 % 98.1 [degF] 165.1 cm 33.9 kg/m2 140 mm[Hg] 60 mm[Hg] Germaine Casiano [address] 4 13:38:04 Social History Question Answer Notes LastModified by [employer] Details LastModified Time Tobacco Smoking Status Former Smoker quit 28 years ago Melissa Kumar [address] 10/28/2013 09:54:14 What Is Your Level [...] Functional Status Question Answer Note LastModified by [employer] Details LastModified Time What is your level [...] unspecified formulation 10/13/2020 completed JOSE ROBERTO Wheat, [address] 11/15/2022 09:07:04 SARS-COV-2 (COVID-19) vaccine, UNSPECIFIED 12/06/2020 completed JOSE ROBERTO Wheat, [address] 11/15/2022 09:07:16 SARS-COV-2 (COVID-19) vaccine, UNSPECIFIED 12/15/2020 completed JOSE ROBERTO Wheat, [address] 11/15/2022 09:07:21 SARS-COV-2 (COVID-19) vaccine, UNSPECIFIED 08/06/2021 completed JOSE ROBERTO Wheat, [address] 11/15/2022 09:07:25 SARS-COV-2 (COVID-19) vaccine, UNSPECIFIED 02/11/2022 completed JOSE ROBERTO Wheat, [address] 11/15/2022 09:07:30 SARS-COV-2 (COVID-19) vaccine, UNSPECIFIED 08/15/2022 completed JOSE ROBERTO Wheat[address] 11/15/2022 09:07:34 Past Encounters Encounter ID Performer Location Encounter Start Date Encounter Closed Date Diagnosis/Indication Diagnosis SNOMED-CT Code Diagnosis ICD10 Code Diagnosis Note [id number] Leny Braxton MD [facility] [address] [place] [address] 10/19/2013 11:17:40 10/19/2013 14:11:23 Right lower quadrant pain [id number] Labs are normal. Recommend imaging. We discussed [...] again in urgent care or the ER. [id number] MD MARIANNA [place] [place] [address] [place] [address] 10/28/2013 09:33:15 10/28/2013 11:10:58 Abdominal pain 01632235 Low back pain 176444460 Obesity 137982693 Osteoarthritis 679709608 Right lowe r quadrant pain 331249184 Screening for cancer 32437277 Osteopenia 456479577 [id number] Flip Courtney MD [facility] [place] [address] [place] [address] 12/23/2013 13:08:27 12/23/2013 14:14:41 Conjunctivitis 3075065 Right lowe r quadrant pain 559390191 Osteoarthritis 557692885 Low back pain 200732134 Scoliosis deformity of spine 710188667 [id number] Dawn Tineo DO [facility] [place] [address] [place] [address] 11/11/2022 10:48:16 11/11/2022 11:58:18 Pain of right knee joint 3649495166 33036 M25.561 Osteoarthr itis of right knee joint 8670706296 32521 M17.11 Health Concerns Section Related Observation LastModified by Organization Detai ls LastModified Time None Recorded Concern Status LastModified by Organization Details LastModified Time None Recorded Advance Directives Directive None Recorded Payers Insurance Date Sequence Insurance Name Policy Number Policy Madsen Covered Member ID Madsen Member ID Guarantor Name 11/13/2022 2 [facility] - [employer] PL[employer] F (INDEMNITY) [id number] Frantz Regalado [id number] Nicolette Regalado 11/11/2022 1 [facility] - MEDICARE-[facility] (MEDICARE) Nicolette Regalado [id number] Nicolette Regalado 05/15/2024 1 [place] Nicolette Regalado [id number] Nicolette Regalado 11/13/2022 [facility] - MEDICARE-[address] (MEDICARE) Nicolette Regalado [id number] Nicolette Regalado Notes Date Note Type Note Provider [...] fine. Pain is 5/10. Leny Braxton MD [address] [place] [address],[address], [place], [address], [facility] [place] 10/19/2013 15:02:05 11/11/2022 text/html 72 year old [...] pain COMPARISON: Any prior imaging within the [facility] system was reviewed. TECHNIQUE: AP, lateral, sunrise [...] right knee with moderate osteoarthritis DO candace Gorman[address] 11/11/2022 12:11:09 OBGyn Episode No OBEpisode recorded.
[2025-03-30 11:43] LABS: Anion Gap 10.5; BUN Creatinine Ratio 15.8; Calcium 8.4 mg/dL (8.5-10.1); Carbon Dioxide 29.3 mmol/L (21.0-32.0); Chloride 106 mmol/L (98-107); Estimated GFR (African America >60 (>=60 mL/min/1.73m^2); Estimated GFR (Non-African Ame >60 (>=60 mL/min/1.73m^2); Glucose 98 mg/dL (74-106); Potassium 3.8 mmol/L (3.5-5.1); Sodium 142 mmol/L (136-145)
== END 2025-03-30 10:48 | disposition home or self-care (01) ==
LOC: LAB 10:49
PROVIDERS: PCP Family Medicine
DX: E87.1 Hypo-osmolality and hyponatremia (principal)
CPT/HCPCS: 36415; 80048

== ENCOUNTER 2025-05-31 09:58 | Outpatient (RCR) | payer MEDICARE, OTHER, SELFPAY | END 2025-06-30 10:29 | disposition home or self-care (01) | LOC: PT 09:58 | PROVIDERS: PCP Family Medicine; Visit Provider Orthopaedic Surgery | DX: M24.661 Ankylosis, right knee (principal); Z96.651 Presence of right artificial knee joint; M54.50 Low back pain, unspecified | CPT/HCPCS: 97110; 97113; 97140; 97162 ==

== ENCOUNTER 2025-06-14 11:18 | Outpatient (OUT) | payer MEDICARE, OTHER, SELFPAY ==
--- OUTSIDE RECORDS SUMMARY | 2025-05-23 06:00 | XMS_ITS ---
Author Organization [facility] Address [address] [place] [address] Care Team Providers Care Clinical Rehab Specialist Name Role Phone Janina Castro M.D. Primary Care Provider Unavail able Jose Rodríguez Unavailable [phone] Self, Referral Unavailable Unavailable Jeramie Younger Unavailable [phone] Allergies No Known Allergies Reason For Referral Reason NO AUTH REQ...............................05/30/25.................................[facility]/ C Right Knee Manipulation Under Anesthesia @ [facility] Mami Leong 05/24/2025 13:05:30 >[id number] Diagnos is 1 Arthrofibrosis of total knee arthroplast y, initial encounter (T84.82XA) Diagnos is 2 Status post right knee replacement (Z96. 651) Referra l [facility] Referri raghav Provide r First Name Jeramie avilez Provide r Last Name Aren avilez Provide r Special ity Orthopedic Surgery Referre d [facility] Referre d Address [address] [place], [place],[address] 214,[place] Procedu re 1 Manipulation of knee joint under general anesthesia (20882) General Notes Makayla Ko 05/24/2025 12:17:43 PM >, Dana Sebastian 05/24/2025 12:27:26 PM > REQUESTED CODES, Dana Sebastian 05/25/2025 09:09:33 AM > MEDICARE PARTS A & B ACTIVE AND EFFECTIVE 03/13/10 PER AVAILITY WITH [facility]. NO AUTHORIZATION REQUIRED. FAXED TO [facility]., Makayla Ko 05/25/2025 09:12:03 AM > Honorio Cardoza y Urgent REASON FOR VISIT SP RIGHT TOTAL KNEE 03/24/25, Status post right total knee arthroplasty 03/24/2025 Medications Medication SIG (Take, Route, Fr equency, Duration) Notes Start Date End Date Status metoprolol Active atorvastatin Active levothyroxine Active nitroglycerin Active busPIRone Active dicyclomine Active Vitamin D3 Active Vitamin C Active Fish Oil Active halobetasol topical Active aspirin Active Tylenol Active Glucosamine Chondroitin Active Turmeric Active Social History Tobacco Use: Social History [...] Problem Status W/U Status Risk Notes Problem Knee joint ankylosis (148918413) Arthrofibrosis of knee joint, right (M24.661) Active confirmed Problem Status post righ t knee replacement (Z96.651) Active confirmed Problem Low back pain (564650295) Low back pain, unspecified (M54.50) Active confirmed Vital Signs Height 5'1 in 05/23/2025 Weight 168 lbs 05/23/2025 BMI 31.74 05/23/2025 Encounters Encounter Location Date Provider Diagnosis 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, implants and grafts, initial encounter T84.82XA ; Status post right knee replacement Z96.651 and Low back pain, unspecified M54.50 Assessments Encounter Date Diagnosis (ICD Code) Assessment Notes Treatment Notes Treatment Clinical Notes Section Notes 05/23/2025 Aftercare following joint replacement surgery (ICD-10 - Z47.1) Status post right total knee arthroplasty 03/24/2025 Right knee arthrofibrosis 05/23/2025 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 Patient does have difficulty with end range of motion secondary to stiffness and arthrofibrosis postoperatively. We did discuss that given her failure to progress to full range of motion she would benefit from right knee manipulation under anesthesia in order to loosen up adhesions. Discussed procedure, risk, benefits, and alternatives include but not limited to fracture, stiffness, hardware failure, continued pain, need for additional surgery, and risk of anesthesia. Patient understood the risks and elected to proceed with surgery. Continue ice and anti-inflammatory as needed for pain. Activity modification as needed for pain. Activity as tolerated. All questions and concerns were addressed. Patient was in agreement with the treatment plan. This note will serve as clinical documentation for today's visit as well as H&P purposes. Status post right total knee arthroplasty 03/24/2025 Right knee arthrofibrosis Plan Of Treatment Treatment Notes Assessment Notes Other Discussed nonoperative and operative interventions with patient. Patient does have difficulty with end range of motion secondary to stiffness and arthrofibrosis postoperatively. We did discuss that given her failure to progress to full range of motion she would benefit from right knee manipulation under anesthesia in order to loosen up adhesions. Discussed procedure, risk, benefits, and alternatives include but not limited to fracture, stiffness, hardware failure, continued pain, need for additional surgery, and risk of anesthesia. Patient understood the risks and elected to proceed with surgery. Continue ice and anti-inflammatory as needed for pain. Activity modification as needed for pain. Activity as tolerated. All questions and concerns were addressed. Patient was in agreement with the treatment plan. This note will serve as clinical documentation for today's visit as well as H&P purposes. Pending Test Test Name Order Date RSS: KNEE POST OP RIGHT 3V AP,[place]AT, [place] [id number] 05/23/2025 RSS- PT- s/p total knee 2-3 x per week f or 6 weeks 05/23/2025 Referrals Referral Date Details 05/24/2025 05/24/2025, NO AUTH REQ...............................05/30/25.............................. ...[facility] Right Knee Manipulation Under Anesthesia @ [facility] SaloMami 05/24/2025 13:05:30 [facility], [address] [place] [address], [phone], Next Appt Details Follow Up: 2 Weeks, Reason: Provider Name:Jeramie Younger, 06/20/2025 10:00:00 AM, [address] [place] [address], [address], [address], Progress Notes * GARTH REGALADO BDOB:1949 (74 yo F)Acc No.[id number]:05/23/2025 Progress Notes Patient: GARTH CRAWFORD Provider: Aurea Younger MD :1950 A ge:74 Y S ex:Female Date:05/23/2025 Address:[address] [place], [place] [id number] Pcp:Janina Castro M.D. Subjective: * Chief Complaints: * 1 . SP RIGHT TOTAL KNEE 03/24/25. 2. Status post right total knee arthroplasty 03/24/2025. * HPI: H PI: Patient is a 74-year-old female who presents for follow-up evaluation 2 months status post right total knee arthroplasty. Patient states she still has some stiffness and achiness in her knee. Pain is worse at the end of the day. She notes increased stiffness in the morning. She has finished up her physical therapy. She is ambulating without assistive device. Denies redness or drainage from her incision. Denies fevers or chills. Denies numbness or tingling in her toes. She is still taking some Tylenol. Denies history of diabetes or DVT. * [...] GI Problems:. * Surgical History: t hyroidectomy 2018, heart stents 2016, lt knee torn meniscus 2009, Right total knee replacement 03/24/2025. * Family History: M other: Cancer,Scoliosis. F [...] levothyroxine , Taking atorvastatin , Taking metoprolol , Medication List reviewed and reconciled with the patient * Allergies: N .K.D.A. Objective: * Vitals: H t: 5'1 , Wt: 168 lbs, BMI:31.74. * Examination: G eneral examination: G eneral exam: Patient is a well-appearing female resting comfortably no acute distress. Patient is awake alert and orient x 3. Normal mood and affect. Ambulates with stifflegged gait. X -ray Imaging Studies: 3 views right knee obtained and reviewed. Radiographs demonstrate well aligned well-fixed right total knee arthroplasty. No evidence of hardware failure or loosening. No acute fracture or dislocation. Patella tracking centrally. C ardiovascular: R egular rate and rhythm. P ulmonary: U nlabored breathing. R ight Lower Extremity: W ell-healed incision with no erythema or drainage. Mild edema. Mild tenderness to palpation medial joint line. No tenderness to palpation lateral joint or peripatellar. Knee range of motion 5 to 100 degrees. Knee stable varus valgus stress. Stable anterior posterior drawer. Patella tracking centrally. 4+ out of 5 quad strength. Motor intact TA, GSC, EHL, FHL. Sensation intact to light touch SPN, DPN, sural, saphenous, tibial nerve distribution. 2+ DP pulse. Toes are well- perfused. No calf pain. Negative Homans. No hip or groin pain with range of motion. Assessment: * Assessment: 1. F ibrosis due to internal orthopedic prosthetic devices, implants and grafts, initial encounter - T84.82XA (Primary) 2 . A ftercare following joint replacement surgery - Z47.1 3 . S tatus post right knee replacement - Z96.651 4 . L ow back pain, unspecified - M54.50 Status post right total knee arthroplasty 03/24/2025 Right knee arthrofibrosis Plan: * Treatment: 2. S tatus post right knee replacement L AB: RSS- PT- s/p total knee 2-3 x per week for 6 weeks Referral To: Reason:NO AUTH REQ...............................05/30/25... ..............................[facility] Right Knee Manipulation Under Anesthesia @ [facility] Mami Leong 05/24/2025 13:05:30 >[id number] 3. L ow back pain, unspecified L AB: RSS- PT- s/p total knee 2-3 x per week for 6 weeks 4. O thers Notes: Discussed nonoperative and operative interventions with patient. Patient does have difficulty with end range of motion secondary to stiffness and arthrofibrosis postoperatively. We did discuss that given her failure to progress to full range of motion she would benefit from right knee manipulation under anesthesia in order to loosen up adhesions. Discussed procedure, risk, benefits, and alternatives include but not limited to fracture, stiffness, hardware failure, continued pain, need for additional surgery, and risk of anesthesia. Patient understood the risks and elected to proceed with surgery. Continue ice and anti-inflammatory as needed for pain. Activity modification as needed for pain. Activity as tolerated. All questions and concerns were addressed. Patient was in agreement with the treatment plan. This note will serve as clinical documentation for today's visit as well as H&P purposes. ? Referral To: Reason:NO AUTH REQ...............................05/30/25... ..............................[facility] Right Knee Manipulation Under Anesthesia @ [facility] SaloMami 05/24/2025 13:05:30 >52546 * Procedure Codes: 7 3562 X-ray Knee, 3 view, Modifiers: RT * Preventive Medicine: MIPS Measures: C MS139 Fall Risk S creening: N o falls in the past year.? Screenings: F all Risk Screening F all Risk Assessment: N o falls in the past year. * Follow Up: 2 Weeks Forms: * Images: * Electronic signature of Jeramie Younger MD on 06/14/2025 at 11:20 AM EDT Sign off status: Pending * Provider: Aurea Younger MD Date: 0 05/23/2025 Generated for Elizabeth avilez/Ludin/Kim on: 0 06/14/2025 11:20 AM EDT History and Physical Notes * HPI (History of Present Illness) Category Sub-Category Detail Notes Category Not es HPI Patient is a 74 -year-old female who presents for follow-up evaluation 2 months status post right total knee arthroplasty. Patient states she still has some stiffness and achiness in her knee. Pain is worse at the end of the day. She notes increased stiffness in the morning. She has finished up her physical therapy. She is ambulating without assistive device. Denies redness or drainage from her incision. Denies fevers or chills. Denies numbness or tingling in her toes. She is still taking some Tylenol. Denies history of diabetes or DVT. Examination Category Sub-Category Detail Notes Category Not es General examination General exam: Patient is a well-appearing female resting comfortably no acute distress. Patient is awake alert and orient x 3. Normal mood and affect. Ambulates with stifflegged gait. X-ray Imaging Studies 3 view s right knee obtained and reviewed. Radiographs demonstrate well aligned well-fixed right total knee arthroplasty. No evidence of hardware failure or loosening. No acute fracture or dislocation. Patella tracking centrally. Cardiovascular Regular rate and rhythm Pulmonary Unlabored breat saul Right Lower Extremity Well-h ealed incision with no erythema or drainage. Mild edema. Mild tenderness to palpation medial joint line. No tenderness to palpation lateral joint or peripatellar. Knee range of motion 5 to 100 degrees. Knee stable varus valgus stress. Stable anterior posterior drawer. Patella tracking centrally. 4+ out of 5 quad strength. Motor intact TA, GSC, EHL, FHL. Sensation intact to light touch SPN, DPN, sural, saphenous, tibial nerve distribution. 2+ DP pulse. Toes are well-perfused. No calf pain. Negative Homans. No hip or groin pain with range of motion. Consultation Request Notes Referral Date Referring Provider Referred Provider Not es 05/24/2025 Jeramie Younger , NO AUTH REQ............................... 05/30/25........................... ......[facility] Right Knee Manipulation Under Anesthesia @ [facility] Mami Leong 05/24/2025 13:05:30 >[id number]
--- OUTSIDE RECORDS SUMMARY | 2025-05-30 06:40 | XMS_ITS ---
Author Organization [facility] Address [address] [place] [address] Care Team Providers Care Neighborhood Aide Name Role Phone Janina Castro M.D. 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, implants and grafts, initial encounter (T84.82XA) Active confirmed Encounters Encounter Location Date Provider Diagnosis [facility] [address] [place] [id number] 05/30/2025 Jeramie Younger 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, implants and grafts, initial encounter T84.82XA and Presence of right artificial knee joint Z96.651 Assessments Encounter Date Diagnosis (ICD Code) Assessment Notes Treatment Notes Treatment Clinical Notes Section Notes 05/30/2025 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 * Images: * Electronic signature of Jeramie Younger MD on 06/14/2025 at 11:20 AM EDT Sign off status: Pending * Provider: Aurea Younger MD Date: 05/30/2025 Generated for Elizabeth vailez/Ludin/eTransmitting on: 06/14/2025 11:20 AM EDT
--- OUTSIDE RECORDS SUMMARY | 2025-06-14 11:20 | XMS_ITS | Patient Health Record ---
Author Organization [facility] Address [address] [place] [address] Care Team Providers Care Chief Arson Division Name Role Phone Janina Castro M.D. Primary Care Provider Unavail able RodríguezTommyen Unavailable [phone] Self, Referral Unavailable Unavailable MelaniePeggy Unavailable [phone] Jeramie Younger Unavailable [phone] Jose Ramon Sung Unavailable [phone] Sylvain Snyder Unavailable [phone] Allergies No Known Allergies Results Component Value Reference Range Notes Surgery Scheduling Reviewed date:06/03/2025 07:58:22 AM Interpretation: Performing Lab: Notes/Report: Primary Insurance Company: Railroad Medicare Surgeon/Assist: Jeramie Younger MD Surgery Location: [facility] Surgery Date & Time: May 30, 2025 @ 11:20 a.m. Hosp arrival time day of: 9:30 a.m. Procedure: Right TKA Manipulati on Under Anesthesia Diagnosis: Right TKA Arthrofibrosis Admission Type: outpatient Anesthesia Type/CPNB: MAC Pattern Perforating Machine Operator: Makayla Surgery Scheduling Reviewed date:04/05/2025 10:34:09 AM Interpretation: Performing Lab: Notes/Report: Primary Insurance Company: Railroad Medicare Surgeon/Assist: Jeramie Younger MD Surgery Location: [facility] Surgery Date & Time: March 24, 2025 Procedure: Right Total Knee Art hroplasty CPT 10156 Special Equipment: Tayler Persona Diagnosis: Right Knee Pain/OA Admission Type: outpatient Anesthesia Type/CPNB: Regional/Spinal Bed 23 hr Lab Location: [place] Pattern Perforating Machine Operator: Makayla Ruiz Physician: Janina Zhao Reason For Referral Reason NO AUTH REQ...............................03/24/25............................[facility] Right Total Knee Artrhroplasty @ [facility] Diagnosi s 1 Primary osteoarthritis of right knee (M1 7.11) Diagnosi s 2 Right knee pain (M25.561) Referral [facility] Gabriel wu Provider First Name Jeramie wu Provider Last Name Aren wu Provider Speciali ty Orthopedic Surgery Referred [facility] Referred Address [address] [place], [place] Procedur e 1 Arthroplasty Knee Total Med/Lat Compartm ents (02395) General Notes Makayla Ko 02/23/2025 01:13:40 PM >, Dana Sebastian 02/23/2025 01:16:10 PM > MEDICARE PARTS A & B ACTIVE AND EFFECTIVE 03/13/10 PER AVAILITY WITH [facility] SECONDARY. NO AUTHORIZATION REQUIRED. FAXED TO [facility].Maikel Kelly 02/23/2025 02:05:39 PM > Referral Priority Routine Reason NO AUTH REQ...............................05/30/25.................................[facility] Right Knee Manipulation Under Anesthesia @ [facility] Mami Leong 05/24/2025 13:05:30 >16094 Diagnos is 1 Arthrofibrosis of total knee arthroplast y, initial encounter (T84.82XA) Diagnos is 2 Status post right knee replacement (Z96. 651) Referra l [facility] Referamy avilez Provide r First Name Jeramie avilez Provide r Last Name Aren avilez Provide r Special ity Orthopedic Surgery Referre d [facility] Referre d Address [address], [place],[address],[place] Procedu re 1 Manipulation of knee joint under general anesthesia (37394) General Notes Makayla Ko 05/24/2025 12:17:43 PM >, Jaz, Dana 05/24/2025 12:27:26 PM > REQUESTED CODES, Izzy Sebastianyla 05/25/2025 09:09:33 AM > MEDICARE PARTS A & B ACTIVE AND EFFECTIVE 03/13/10 PER AVAILITY WITH [facility] SECONDARY. NO AUTHORIZATION REQUIRED. FAXED TO [facility]., Makayla Ko 05/25/2025 09:12:03 AM > Referra l Priorit y Urgent Medications Medication SIG (Take, Route, Fr equency, Duration) Notes Start Date End Date Status dicyclomine Active Vitamin D3 Active Vitamin C Active Fish Oil Active aspirin Active Tylenol Active metoprolol Active Glucosamine Chondroitin Active atorvastatin Active Turmeric Active levothyroxine Active nitroglycerin Active busPIRone Active halobetasol topical Active Social History Tobacco [...] Problem Status W/U Status Risk Notes Problem [id number] Aftercare following joint replacement surgery (Z47.1) Active confirmed Problem Right knee pain (543333121472863) Right knee pain (M25.561) Active confirmed Problem 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, implants and grafts, initial encounter (T84.82XA) Active confirmed Problem Osteoarthritis of knee (181378430) Primary osteoarthritis of right knee (M17.11) Active confirmed Problem 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) Arthrofibrosis of knee joint, right (M24.661) Active confirmed Problem Artificial knee joint present (473533880786) Status post right knee replacement (Z96.651) Active confirmed Problem Low back pain (388471102) Low back pain, unspecified (M54.50) Active confirmed Vital Signs Height 5'1 in 05/23/2025 Weight 168 lbs 05/23/2025 BMI 31.74 05/23/2025 Encounters Encounter Location Date Provider Diagnosis [facility] [address] [place] [address] 05/23/2025 Jeramie Younger Aftercare following joint replacement surgery Z47.1 ; 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, implants and grafts, initial encounter T84.82XA ; Status post right knee replacement Z96.651 and Low back pain, unspecified M54.50 [facility] [address] [place], [place] [id number] 05/30/2025 Jeramie Younger 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, implants and grafts, initial encounter T84.82XA and Presence of right artificial knee joint Z96.651 [facility] [address] [place] [address] 02/16/2025 Peggy Melanie Acute pain of right knee M25.561 [facility] [address] [place] [address] 02/21/2025 Sylvain Maganaufman Primary osteoarthrit is of right knee M17.11 ; Right knee pain M25.561 and Encounter for pre-operative respiratory clearance Z01.811 [facility] [address] [place] [address] 03/21/2025 Jeramie Younger Primary osteoarthrit is of right knee M17.11 and Right knee pain M25.561 [facility] [address] [place] [address] 03/24/2025 Jeramie Younger Primary osteoarthrit is of right knee M17.11 [facility] [place] [address] 04/11/2025 Jeramie Younger Aftercare following joint replacement surgery Z47.1 and Presence of right artificial knee joint Z96.651 [facility] [address] [place] [address] 02/22/2025 Jose Ramon Sung [facility] [address] [place] [address] 02/22/2025 Jeramie Younger Assessments Encounter Date Diagnosis (ICD Code) Assessment Notes Treatment Notes Treatment Clinical Notes Section Notes 03/21/2025 Right knee pain (ICD-10 - M25.561) Right knee pain Right knee osteoarthritis 03/21/2025 Primary osteoarthritis of right knee (ICD-10 - M17.11) Right knee pain Right knee osteoarthritis 03/24/2025 Primary osteoarthritis of right knee (ICD-10 - M17.11) 04/11/2025 Aftercare following joint replacement surgery (ICD-10 - Z47.1) Status post right total knee arthroplasty 03/24/2025 04/11/2025 Presence of right artificial knee joint (ICD-10 - Z96.651) Status post right total knee arthroplasty 03/24/2025 05/23/2025 Aftercare following joint replacement surgery (ICD-10 - Z47.1) Status post right total knee arthroplasty 03/24/2025 Right knee arthrofibrosis 05/23/2025 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, implants and grafts, initial encounter (ICD-10 - T84.82XA) Status post right total knee arthroplasty 03/24/2025 Right knee arthrofibrosis 02/16/2025 Acute pain of right knee (ICD-10 - M25.561) 02/21/2025 Right knee pain (ICD-10 - M25.561) Right knee pain Right knee OA 02/21/2025 Primary osteoarthritis of right knee (ICD-10 - M17.11) Right knee pain Right knee OA 05/30/2025 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 Right knee pain Right knee osteoarthritis 04/11/2025 Other Discussed treatment options with patient. Overall patient is doing well following her total knee arthroplasty. Her incision is healing well. She will continue work with physical therapy. We did stress that she needs to work on flexing her knee. Continue ice and anti-inflammatory as needed for pain. Activity modification as needed for pain. Activity as tolerated. All questions and concerns were addressed. Patient was in agreement with the treatment plan. Will plan to see the patient back in 6 weeks for repeat clinical and radiographic evaluation. Status post right total knee arthroplasty 03/24/2025 Plan Of Treatment Pending Test Test Name Order Date Chest 2 views - 97446 02/21/2025 PT/ INR - 98460 02/21/2025 EKG 02/21/2025 CBC 02/21/2025 CMP 02/21/2025 MRSA (Bilateral Nares) PCR 02/21/2025 APTT 02/21/2025 UA with Reflex C & S 02/21/2025 SCC- KNEE 4 VIEW RIGHT [id number] 02/16/2025 RSS: KNEE POST OP RIGHT 3V AP,[place], [place] [address] 04/11/2025 RSS: KNEE POST OP RIGHT 3V AP,[place], [place] [address] 05/23/2025 RSS- PT- s/p total knee 2-3 x per week f or 6 weeks 05/23/2025 RSS- PT- s/p total knee 2-3 x per week f or 6 weeks 02/21/2025 Next Appt Details Provider Name:Jeramie Younger, 06/20/2025 10:00:00 AM, [address], [place] [address], [place], [address], Insurance Providers Payer Name Payer Address Payer Phone Subscriber Number Group Number Insured Name Patient Relationship to Insured Coverage Start Date Coverage End Date [employer] Medicare [address] [address] [place] [address] [phone] [id number] SWANDER, GARTH Self - patient is the insured 5 [facility] [address] [address] [place] [address] [id number] FRANTZ OLGUIN Spouse - patient is the spouse of the insured 5 Medical (General) History Medical History History ICD Code Heart attack: Yes Cancer: Yes Cancer Type: Other Chronic back pain:: Yes Heart Attack: Yes High Blood Pressure: Yes Asthma/COPD Hypothyroidism GI Problems: Surgical History Surgery Date(Month/Year) Right total knee MORENA 05/30/2025 Right total knee replacement 03/24/2025 lt knee torn meniscus 2010 heart stents 2017 thyroidectomy 2019
--- OUTSIDE RECORDS SUMMARY | 2025-06-14 11:20 | XMS_ITS | Clinical Summary ---
Author Organization [facility] Address [id number] [address] [place] [address] Care Team Providers Care Cigarette Machines Mechanic Name Role Phone Unavailable Primary Care Provider [...] (XYLIMELTS MM) by mucous membrane route. Active jlnqwodd-olyn-I A-calcium &mins (THERAGRAN-M) 9 mg iron-400 mcg [...] mouth 3 (three) times a day. Active hxacabp-tjuf-by xeq-ytic-mlflxu 100 mg-150 mg- 50 mg-150 mg capsule [...] Medical Devices Not on file Insurance MEDICARE [id number] PLAN [facility]
--- OUTSIDE RECORDS SUMMARY | 2025-06-14 11:20 | XMS_ITS | Encounter Summary ---
Author Organization [facility] Address [address], [address] [place] [address] Care Team Providers Care Offset Printing Pressmen Name Role Phone Janina Castro MD Primary Care Provider [phone] Encounter Details Date Type Department Care Team (Late st Contact Info) Description 07/25/2021 Abstract [facility] [address] [place] [address] [address] [place] [address] Jeovany Betancourt MD [address] [place] [address] [address] [place] [address] Social History Tobacco Use Types [...] Care Team (Late st Contact Info) Description 05/17/2026 10:20 AM EDT Office Visit [facility] Part of [address] [place] [address] Shelby Castillo APRN - MARIMAR [address] [place] [address] [address] [place] [address] Annual documented as of this encounter Visit Diagnoses Not on filedocumented in this encounter Additional Health Concerns Assessment Noted Time A fall risk assessment has been complete d for the patient 03/23/2018 10:41 AM EDT A Body Mass Index follow-up plan has been documented for the patient 07/23/2021 11:10 AM EDT documented as of this encounter Care Teams Offset Printing Pressmen Relationship Specialty Start Date End Date Janina Castro MD PCP - General Family Medicine 04/10/18 documented as of this encounter
--- OUTSIDE RECORDS SUMMARY | 2025-06-14 11:21 | XMS_ITS | Encounter Summary ---
Author Organization [facility] Address [address] [place] [address] Care Team Providers Care Building Construction Teacher Name Role Phone Janina Castro MD Primary Care Provider [phone] Source Comments In the event this information is protected by the Federal Confidentiality of Alcohol and Drug AbusePatient Records regulations: The Federal rules restrict any use of the information to criminally investigate or prosecute any alcohol or drug abuse patient.[facility] Encounter Details Date Type Department Care Team (Late st Contact Info) Description 11/08/2019 Get Medical Advice [facility] [address] [place] [address] [place] [address] [facility] [address] [place] [address] RE: Upcoming Appointment Question Social History Tobacco [...] on filedocumented in this encounter Care Teams Building Construction Teacher Relationship Specialty Start Date End Date Janina Castro MD [address] [place] [address] PCP - General Family Medicine 07/17/17 documented as of this encounter
--- OUTSIDE RECORDS SUMMARY | 2025-06-14 11:21 | XMS_ITS | Clinical Summary ---
Author Organization [facility] Address [address] [place] [address] Care Team Providers Care Mirror Fabrication Supervisor Name Role Phone Janina Castro MD Primary Care Provider [phone] Allergies Active Allergy Reactions Criticality Noted Date [...] state (HCC),Coronary artery disease involving [place] heart without angina pectoris, unspecified vessel or lesion type Take by mouth twice daily. Active atorvastatin (LIPITOR) 20 mg tabletIndications:M esenteric ischemia (HCC),Primary hypercoagulable state (HCC),Coronary artery disease involving [place] heart without angina pectoris, unspecified vessel or [...] every 6 hours as needed. 9 Active bmvdawn-apwrpkhlc-l itamin D3 500 mg(1,250mg) -200 unit per tablet Take 2 tablets by mouth three times daily. 180 tablet 9 Active levothyroxine (SYNTHROID) 88 mcg tablet Take 1 tablet by mouth once daily. 90 tablet 3 0 Active Active Problems Problem Noted Date Diagnosed Date Mesenteric ischemia 01/08/2018 Primary hypercoagulable state 01/08/2018 Coronary artery disease invo lving [place] heart without angina pectoris 01/08/2018 Multinodular thyroid [...] N ot on file 09/17/2020 Data from: https://www.neighborhoodatlas.medicine.[facility].edu/. Last address used for calculation Not [...] 05/12/2019, 0 06/03/2018, 05/19/2018, Additional history exists Advance Directive Discussion 10/13/2024 Influenza Vaccine (#1) 2025 RSV Vaccine (1 - 1-dose 75+ series) 2027 Procedures Procedure Name Priority Date/Time Associated Diagnosis Comments COMPREHENSIVE METABOLIC PANEL Routine 05/12/2019 11:14 AM EDT Preoperative examination from Last 3 Months or Most Recently Relevant to Health Maintenance Results * COMP METABOLIC PANEL (05/12/2019 11:14 AM EDT) Protein, Total 7.1 6.3 - 8.0 g/dL 05/12/2019 8:20 PM EDT [facility] Albumin 4.5 3.9 - 4.9 g/dL 05/12/2019 8:20 PM EDT [facility] Calcium 9.7 8.5 - 10.2 mg/dL 05/12/2019 8:20 PM [facility] Bilirubin, Total 0.4 0.2 - 1.3 mg/dL 05/12/2019 8:20 PM [facility] Alkaline Phosphatase 76 34 - 123 U/L 05/12/2019 8:20 PM [facility] AST 23 13 - 35 U/L 05/12/2019 8:20 PM [facility] Glucose 84 74 - 99 mg/dL 05/12/2019 8:20 PM [facility] Comment: The [place] Diabetes Association (ADA) provides guidance for cutoff [...] Standards of Medical Care in Diabetes 2016, [place] Diabetes Association. Diabetes Care. 2016.39(Suppl 1). BUN 13 7 - 21 mg/dL 05/12/2019 8:20 PM [facility] Creatinine 0.67 0.58 - 0.96 mg/dL 05/12/2019 8:20 PM [facility] Sodium 141 136 - 144 mmol/L 05/12/2019 8:20 PM [facility] Potassium 4.1 3.7 - 5.1 mmol/L 05/12/2019 8:20 PM [facility] Chloride 104 97 - 105 mmol/L 05/12/2019 8:20 PM [facility] CO2 26 22 - 30 mmol/L 05/12/2019 8:20 PM [facility] Anion Gap 11 9 - 18 mmol/L 05/12/2019 8:20 PM [facility] ALT 17 7 - 38 U/L 05/12/2019 8:20 PM [facility] eGFR- >60 05/12/2019 8:20 PM [facility] eGFR-All Other Races >60 . 05/12/2019 8:20 PM EDT [facility] Comment: eGFR (Estimated GFR) Units of [...] Geno Minor MD LABORATORY Final Res ult [facility] [address] [place] [address] [facility] [address] [place] [address] from Last 3 Months or Most Recently Relevant to Health Maintenance Insurance [facility]IC[facility] Care Teams Mirror Fabrication Supervisor Relationship Specialty Start Date End Date Janina Castro MD [address] [place] [address] PCP - General Family Medicine 07/17/17
--- OUTSIDE RECORDS SUMMARY | 2025-06-14 11:21 | XMS_ITS | Encounter Summary ---
Author Organization [facility] Address [address] [place] [address] Care Team Providers Care Radio Tower Technician Name Role Phone Janina Castro MD Primary Care Provider [phone] Source Comments In the event this information is protected by the Federal Confidentiality of Alcohol and Drug AbusePatient Records regulations: The Federal rules restrict any use of the information to criminally investigate or prosecute any alcohol or drug abuse patient.[facility] Encounter Details Date Type Department Care Team (Late st Contact Info) Description 08/29/2017 Get Medical Advice Endocrinology [address] [facility] [address], [address] [place] [address] [place] [address] [facility] [address] [place] [address] Medication Question (Not Renewal) Social History Tobacco [...] on filedocumented in this encounter Care Teams Radio Tower Technician Relationship Specialty Start Date End Date Janina Castro MD [address] [place] [address] PCP - General Family Medicine 07/17/17 documented as of this encounter
--- OUTSIDE RECORDS SUMMARY | 2025-06-14 11:21 | XMS_ITS | Encounter Summary ---
Author Organization [facility] Address [address] [place] [address] Phone Care Team Providers Care Fence Maker Name Role Phone Janina Castro MD Primary Care Provider Encounter Details Date Type Department Care Team (Late st Contact Info) Description 02/13/2021 Orders Only [facility] [address] [place] [address] Conversion, Onbase Social History Tobacco Use Types [...] Description 02/16/2026 9:45 AM EDT Appointment Mariela [address] [place] [address] 03/01/2026 10:30 AM EDT Office Visit [address] [place] [address] Lul Rose DO [address] [facility] [address] [place] [address] Scheduled Orders Name Type Priority Associated Diagnoses Orde r Schedule OUTSIDE LAB SCAN Lab Ordered: 02/13/2021 OUTSIDE LAB SCAN Lab Ordered: 02/13/2021 documented as of this encounter Visit Diagnoses Not on filedocumented in this encounter Care Teams Fence Maker Relationship Specialty Start Date End Date Janina Castro MD [address] [place] [address] PCP - General 04/03/21 documented as of this encounter
--- OUTSIDE RECORDS SUMMARY | 2025-06-14 11:21 | XMS_ITS | Encounter Summary ---
Author Organization [facility] Address [address] [place] [address] Phone Care Team Providers Care Locomotive Crane Operator Helper Name Role Phone Janina Castro MD Primary Care Provider [phone] Encounter Details Date Type Department Care Team (Late st Contact Info) Description 07/10/2023 Scanned Document [facility] [address] [place] [address] Scanning, Generic Provider Social History Tobacco Use [...] Info) Description 02/16/2026 9:45 AM EDT [facility] [address] [facility] [address] [place] [address] 03/01/2026 10:30 AM EDT Office Visit [address] [place] [address] Lul Rose DO [address] [facility] [address] [place], [place] [phone] documented as of this encounter Visit Diagnoses Not on filedocumented in this encounter Care Teams Locomotive Crane Operator Helper Relationship Specialty Start Date End Date Janina Castro MD [facility] [facility] [place] [address] [place] [address] PCP - General 04/03/21 documented as of this encounter
--- OUTSIDE RECORDS SUMMARY | 2025-06-14 11:21 | XMS_ITS | Encounter Summary ---
Author Organization [facility] Address [facility] [place] [address] Care Team Providers Care Insurance Loss Assessor Name Role Phone Janina Castro MD Primary Care Provider [phone] Source Comments In the event this information is protected by the Federal Confidentiality of Alcohol and Drug AbusePatient Records regulations: The Federal rules restrict any use of the information to criminally investigate or prosecute any alcohol or drug abuse patient.[facility] Encounter Details Date Type Department Care Team ([facility] Contact Info) Description 04/27/2019 Patient Msg Medical Records [address] [place] [address] Provider, [facility] Prescribed Patient Education Video(s) Social [...] on filedocumented in this encounter Care Teams Insurance Loss Assessor Relationship Specialty Start Date End Date Janina Castro MD [address] [place] [address] PCP - General Family Medicine 07/17/17 documented as of this encounter
--- OUTSIDE RECORDS SUMMARY | 2025-06-14 11:21 | XMS_ITS | Encounter Summary ---
Author Organization [facility] Address [address] [place] [address] Phone Care Team Providers Care Show Host/Hostess Name Role Phone Janina Castro MD Primary Care Provider [phone] Encounter Details Date Type Department Care Team (Late st Contact Info) Description 06/11/2020 Orders Only [facility] [address] [place] [address] Conversion, Onbase Social History Tobacco Use Types [...] Description 02/16/2026 9:45 AM EDT Appointment Mariela [address] [place] [address] 03/01/2026 10:30 AM EDT Office Visit [address] [place] [address] Lul Rose DO [address] [facility] [address] [place] [address] Scheduled Orders Name Type Priority Associated Diagnoses Orde r Schedule OUTSIDE LAB SCAN Lab Ordered: 06/11/2020 documented as of this encounter Visit Diagnoses Not on filedocumented in this encounter Care Teams Show Host/Hostess Relationship Specialty Start Date End Date Janina Castro MD [address] [place], [place] [phone] PCP - General 04/03/21 documented as of this encounter
--- OUTSIDE RECORDS SUMMARY | 2025-06-14 11:21 | XMS_ITS | Encounter Summary ---
Author Organization [facility] Address [address] [facility] [facility], [address] [place] [address] Care Team Providers Care Grocery Cashier Name Role Phone Janina Castro MD Primary Care Provider [phone] Encounter Details Date Type Department Care Team (Latest Contact Info) Description 04/23/2018 Surg/Proc Orders [facility] [address] [place] [address] [address] [place] [address] Farhad Mendez MD Endometrial adenocarcinoma (HCC) (Primary [...] Description 05/17/2026 10:20 AM EDT Office Visit [facility] Part of [address] [place] [address] Shelby Castillo APRN - MARIM[place] [address] [place] [address] [address] [place] [address] Annual documented as of this encounter Visit Diagnoses Diagnosis 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
--- OUTSIDE RECORDS SUMMARY | 2025-06-14 11:21 | XMS_ITS | Encounter Summary ---
Author Organization [facility] Address [address] [place] [id number] Care Team Providers Care Daytime Caregiver Name Role Phone Janina Castro MD Primary Care Provider Source Comments In the event this information is protected by the Federal Confidentiality of Alcohol and Drug AbusePatient Records regulations: The Federal rules restrict any use of the information to criminally investigate or prosecute any alcohol or drug abuse patient.[facility] Encounter Details Date Type Department Care Team (Late st Contact Info) Description 04/14/2018 Patient Msg Endocrinology [address] [facility] [address], [address] [place] [address] [place] [address] [facility] [address] [place] [address] RE:hyperthyroidism & hysterectomy Social History Tobacco Use [...] on filedocumented in this encounter Care Teams Daytime Caregiver Relationship Specialty Start Date End Date Janina Castro MD [address] [place] [phone] PCP - General Family Medicine 07/17/17 documented as of this encounter
--- OUTSIDE RECORDS SUMMARY | 2025-06-14 11:21 | XMS_ITS | Encounter Summary ---
Author Organization [facility] Address [address] [place] [address] Care Team Providers Care Phd Internship Name Role Phone Janina Castro MD Primary Care Provider [phone] Source Comments In the event this information is protected by the Federal Confidentiality of Alcohol and Drug AbusePatient Records regulations: The Federal rules restrict any use of the information to criminally investigate or prosecute any alcohol or drug abuse patient.[facility] Encounter Details Date Type Department Care Team (Late st Contact Info) Description 10/04/2019 Get Medical Advice [facility] [address] [place] [address] [place] [address] [facility] [address] [place] [address] RE: Visit Follow Up Question Social History [...] on filedocumented in this encounter Care Teams Phd Internship Relationship Specialty Start Date End Date Janina Castro MD [address] [place] [phone] PCP - General Family Medicine 07/17/17 documented as of this encounter
--- OUTSIDE RECORDS SUMMARY | 2025-06-14 11:21 | XMS_ITS | Encounter Summary ---
Author Organization [facility] Address [address] [place] [address] Phone Care Team Providers Care Concrete Laborer Name Role Phone Janina Castro MD Primary Care Provider [phone] Encounter Details Date Type Department Care Team (Late st Contact Info) Description 08/26/2019 Orders Only [facility] [address] [place] [address] Conversion, Onbase Social History Tobacco Use Types [...] Description 02/16/2026 9:45 AM EDT Appointment Mariela [address] [place] [id number] 03/01/2026 10:30 AM EDT Office Visit [address] [place] [phone] Lul Rose DO [address] [facility] [place] [address] Scheduled Orders Name Type Priority Associated Diagnoses Orde r Schedule OUTSIDE LAB SCAN Lab Ordered: 08/26/2019 OUTSIDE LAB SCAN Lab Ordered: 08/26/2019 documented as of this encounter Visit Diagnoses Not on filedocumented in this encounter Care Teams Concrete Laborer Relationship Specialty Start Date End Date Janina Castro MD [address] [place] [address] PCP - General 04/03/21 documented as of this encounter
--- OUTSIDE RECORDS SUMMARY | 2025-06-14 11:21 | XMS_ITS | Clinical Summary ---
Author Organization [facility] Address [address] [facility], [address] [place] [address] Care Team Providers Care Manufacturing Engineer Machining Name Role Phone Janina Castro MD Primary Care Provider [phone] Allergies Active Allergy Reactions Criticality Noted Date [...] tablet Take 1 tablet by mouth Daily 2 Active metoprolol succinate (TOPROL XL) 25 MG extended release tablet Take 1 tablet by mouth daily 2 Active glucosamine-cho ndroitin 500-400 MG tablet Take by mouth Active pregabalin (LYRICA) 75 MG capsuleIndicati ons:S/P total knee arthroplasty, right Take 1 capsule by mouth every 12 hours as needed (breakthrough pain) for up to 14 days. Max Daily Amount: 150 mg 28 capsule 5 Active Additional Information Patient not taking.Reported on 05/16/2025 aspirin (NORA ASPIRIN) 325 MG tablet Take 1 tablet by mouth daily 30 tablet 5 Active vitamin C (ASCORBIC ACID) 500 MG tablet Take by mouth Ac tive vitamin D (CHOLECALCIFERO L) 25 MCG (1000 UT) TABS tablet Take by mouth daily Active FLAXSEED, LINSEED, PO Take by mouth Acti ve magnesium oxide (MAG-OX) 400 (240 Mg) MG tablet Take 1 tablet by mouth Active [place]-3 Fatty Acids (FISH OIL) 1000 MG capsule [...] at bedtime for 5 days 20 tablet 5 Active Additional Information Patient not taking.Reported on 05/16/2025 Active Problems Problem Noted Date Diagnosed Date S/P total knee arthroplasty, right 03/24/2025 [facility] BSO, Cytologic washings, Peritoneal biopsie s 06/02/18 06/02/2018 Essential hypertension 06/02/2018 Endometrial cancer 04/23/2018 Cancer Staging:Clinical stage from 06/03/2018:FIGO Stage IA(ycT1a, cN0(sn), cM0) - Signed by Farhad Mendez MD on 06/03/2018 Pathologic stage from 06/03/2018:FIGO Stage IA(ypT1a, pN0(sn), cM0) - Signed by Farhad Mendez MD on 06/03/2018 Coronary artery disease invo lving [place] heart without angina pectoris 01/08/2018 Mesenteric ischemia 01/08/2018 Primary hypercoagulable state 01/08/2018 Hyperthyroidism 06/04/2017 Multinodular goiter 06/04/2017 Post-op pain Resolved Problems Problem Noted Date Diagnosed Date Resolved Date Endometrial 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/23/2018 1 History of robot-assisted la paroscopic hysterectomy 06/02/2018 01/04/2020 Encounters Date Type Department Care Team Description 05/16/2025 12:17 PM EDT - 05/16/2025 11:59 PM EDT Hospital Encounter [place] [id number] MILITARY TECHNOLOGY MANAGER exam for high-risk Medicare patient; Screening for HPV (human papillomavirus) Discharge Disposition: Home or Self Care 05/16/2025 11:10 AM EDT Office Visit [facility] [facility] Part of [address] [place] [address] Shelby Castillo APRN - MARIMAR MILITARY TECHNOLOGY MANAGER exam for high-risk Medicare patient (Primary Dx); Encounter for screening mammogram for malignant neoplasm of breast; Screening for HPV (human papillomavirus) 03/24/2025 10:42 AM EDT Anesthesia Event [facility] OR [address] [place] [address] Sinan Khan APRN - LIGHT RAIL TRAIN OPERATOR Zoë Ocampo APRN - LIGHT RAIL TRAIN OPERATOR 03/24/2025 10:04 AM EDT - 03/24/2025 12:39 PM EDT Surgery [facility] OR [address] [place] [address] Jeramie Younger MD RIGHT TOTAL KNEE ARTHROPLASTY 03/24/2025 8:04 AM EDT - 03/26/2025 1:22 PM EDT Hospital Encounter [facility] Med Surg [address] [place] [address] Jeramie Younger MD S/P total knee arthroplasty, right (Primary Dx) Discharge Disposition: Home or Self Care 03/24/2025 Travel 03/14/2025 Travel from Last 3 Months Family History Medical History Relation Name Comments Stroke Father Agusto Had COPD Cancer Mother Elvi of pancrea tic cancer Other Other No family h/o o varian or breast cancer. No family h/o DVt. Relation Name Status Comments Brother Alive Father Agusto Maternal Grandfather Maternal Grandmother Mother Elvi Other Other Paternal Grandfather Paternal Grandmother Sister 1 Alive Sister 2 Alive Social History Tobacco Use Types Packs/Day Years Used Date Smoking Tobacco: Former Cigarettes 1 17 0 10/13/1969 - 10/26/1985 Smokeless Tobacco: Never Tobacco Cessation:Counseling Given: Yes Alcohol Use Standard Drinks/Week Comments No 0 (1 standard drink = 0.6 oz pur e alcohol) [facility] Utilities Answer Date Recorded In the past 12 months has e electric, gas, oil, or water company threatened to shut off services in your home? No 03/24/2025 PHQ-2 Answer Date Recorded PHQ-9 Total Score 0 05/16/2025 Hunger Vital Sign Answer Date Recorded Within [...] any time in the past 12 m [facility], were you homeless or living in a correction (including now)? No 03/24/2025 Food Insecurity Answer [...] Sign Reading Time Taken Comments Blood Pressure 136/76 05/16/2025 11:01 AM EDT Pulse 54 03/26/2025 11:48 AM EDT Temperature 36.9 C (98.5 F) 03/26/2025 11:48 AM EDT Respiratory Rate 16 03/26/2025 11:48 AM EDT Oxygen Saturation 92% 03/26/2025 11:48 AM EDT Inhaled Oxygen Concentration - - Weight 73.9 kg (163 lb) 05/16/2025 11:01 AM EDT Height 163.8 cm (5' 4.5 ) 05/16/2025 11:01 AM ED T Body Mass Index 27.55 05/16/2025 11:01 AM EDT Plan of Treatment Upcoming Encounters Date Type Department Care Team (Late st Contact Info) Description 05/17/2026 10:20 AM EDT Office Visit [facility] [facility] Part of [address] [place] [address] Shelby Castillo APRN - MARIMAR [address] [place] [address] [address] [place] [address] Annual Health Maintenance Due Date Last Done Comments Hepatitis C screen 1970 DTaP/Tdap/Td vaccine (1 - Tdap) 1971 Lipids 1992 Colonoscopy 1997 Colorectal Cancer Screen 1997 FIT/FOBT: Average risk 1997 Fecal-DNA (Cologuard): Average risk 1997 Sigmoidoscopy/CT colonography 1997 Shingles vaccine (1 of 2) 2002 DEXA (modify frequency per FRAX score) 2007 Annual Wellness Visit (Medicare) 09/08/2023 08/31/2021 COVID-19 Vaccine ( season) 2025 08/02/2024, 07/19/2024, 10/21/2023, Additional history exists Flu vaccine (#1) 05/13/2025 07/30/2022, , 07/26/2021, Additional history exists Depression Screen 05/16/2026 05/16/2025, 05/16/2025 Breast cancer screen 05/26/2026 05/26/2024, 08/01/2021, 07/07/2020 [...] this topic Medical Devices Implanted Type Area Card Game Operator Device Identifier Shelf Expiration Date Model / Serial / Lot Stent X2 N/A: Heart Biomet Bone Cement R 1x40us - [id number] Implanted:Qty: 1 on 03/24/2025 by Jeramie Younger MD at [facility] Right: Knee [employer]- 04/11/2027 [id number] / / [id number] Biomet Bone Cement R 1x40us - [id number] Implanted:Qty: 1 on 03/24/2025 by Jeramie Younger MD at [facility] Right: Knee [employer]- 05/12/2027 [id number] / / [id number] All Poly Pat Ve 32 Mm Susan - [id number] Implanted:Qty: 1 on 03/24/2025 by Jeramie Younger MD at [facility] Right: Knee [employer]- 06/07/2029 [id number] Psn Tib Stm 5 Deg Sz E R - [id number] Implanted:Qty: 1 on 03/24/2025 by Jeramie Younger MD at [facility] Right: Knee [employer]- 12/26/2033 [id number] Psn Fem Cr Cmt Cocr Std Sz6 R - [id number] Implanted:Qty: 1 on 03/24/2025 by Jeramie Younger MD at [facility] Right: Knee [employer]-WD 07/18/2034 [id number] Psn Mc Ve Asf R 11mm 6-7/Ef - [id number] Implanted:Qty: 1 on 03/24/2025 by Jeramie Younger MD at [facility] Right: Knee [employer]-WD 08/16/2029 [id number] Procedures Procedure Name Priority Date/Time Associated Diagnosis Comments CA SCREEN;PELVIC/BREAST EXAM Routine 05/16/2025 11:29 AM EDT MILITARY TECHNOLOGY MANAGER exam for high-risk Medicare patient Encounter for screening mammogram for malignant neoplasm of breast Screening for HPV (human papillomavirus) MILITARY TECHNOLOGY MANAGER CYTOLOGY Routine 05/16/2025 12:00 AM EDT HUMAN PAPILLOMAVIRUS (HPV) DNA PROBE THIN PREP HIGH RISK Routine 05/16/2025 12:00 AM EDT HEMOGLOBIN AND HEMATOCRIT Routine 03/26/2025 4:30 AM EDT BASIC METABOLIC PANEL Routine 03/26/2025 4:30 AM EDT URINALYSIS WITH [...] SPINAL BLOCK Routine 03/24/2025 10:50 AM EDT DC ARTHRP KNE CONDYLE&PLATU MEDIAL&LAT COMPARTMENTS 03/24/2025 10:43 AM EDT Right knee pain, unspecified chronicity Osteoarthritis of right knee, unspecified osteoarthritis type Case Notes / Makayla 02/24/25[facility] Site- 0854 addedEmail GREGORY/CHING/KATHLEEN/LORA/JSusanne/JE- 0907 sent Special Needs / Makayla 02/24/25[facility] Site- 0854 added Email GREGORY/CHING/KATHLEEN/LORA/HARI/JE- 0907 sent POCT GLUCOSE Routine 03/24/2025 8:49 AM EDT RAVINDRA TYREL DIGITAL SCREEN BILATERAL Routine 05/26/2024 Screening mammogram, encounter for from Last 3 Months or Most Recently Relevant to Health Maintenance Results * Human papillomavirus (HPV) DNA probe thin prep high risk (05/16/2025 12:00 AM EDT) Specimen Description .VAGINAL SPECIMEN 05/16/2025 12:00 AM EDT [facility] HPV Sample .THIN PREP 05/16/2025 12:00 AM EDT [facility] HPV, Genotype 16 Not Detected Not Detected 05/16/2025 12:00 AM EDT [facility] HPV, Genotype 18 Not Detected Not Detected 05/16/2025 12:00 AM EDT [facility] HPV, High Risk Other Not Detected Not Detected 05/16/2025 12:00 AM EDT [facility] HPV, Interpretation 05/16/2025 12:00 AM EDT [facility] Comment: This test amplifies and detects DNA of 14 high-risk HPV types associated with cervical cancer and its precursor lesions (HPV types 16,18, 31, 33, 35, 39, 45, 51, 52, 56, 58, 59, 66, and 68). Sensitivity may be affected by specimen collection methods, stage of infection, and the presence of interfering substances. Results should be interpreted in conjunction with other available laboratory and clinical data. A negative high-risk HPV result does not exclude the possibility of future cytologic HSIL or underlying CIN2-3 or cancer. This test is intended for medical purposes only and is not valid for the evaluation of suspected sexual abuse or for other forensic purposes. SPECIMEN FROM CERVIX OR VAGINA / Unknown 05/16/2025 us Janina Castro MD HEMATOLOGY ORDERABLES Final Resu lt [facility] [address] [place] [address], [facility] [phone] [address] [phone] * MILITARY TECHNOLOGY MANAGER Cytology (05/16/2025 12:00 AM EDT) Cytology Report Path Number: [id number] DIAGNOSIS Imaged ThinPrep Pap - Vaginal (1 monolayer slide): Specimen Adequacy: Satisfactory for evaluation. Descriptive Diagnosis: Negative for intraepithelial lesion or malignancy. Comments: Specimen was screened at [facility], [address] [facility] [address] Cytotech Screener: YONATHAN Electronically Signed Out MIGUEL Mariano(ASCP) yonathan/06/02/2025 Procedure/Addendum HPV Procedure Report Date Ordered: 05/17/2025 Status: Signed Out Date Complete: 05/17/2025 By: System Interface Date Reported: 05/17/2025 Sample: HPV Type 16 Result: Not Detected Ref Range: Not Detected Sample: HPV Type 18 Result: Not Detected Ref Range: Not Detected Sample: Other High Risk HPV Result: Not Detected Ref Range: Not Detected Sample: HPV Interp Result: Ref Range: This test amplifies and detects DNA of 14 high-risk HPV types associated with cervical cancer and its precursor lesions (HPV types 16,18, 31, 33, 35, 39, 45, 51, 52, 56, 58, 59, 66, and 68). Sensitivity may be affected by specimen collection methods, stage of infection, and the presence of interfering substances. Results should be interpreted in conjunction with other available laboratory and clinical data. A negative high-risk HPV result does not exclude the possibility of future cytologic HSIL or underlying CIN2-3 or cancer. This test is intended for medical purposes only and is not valid for the evaluation of suspected sexual abuse or for other forensic purposes. Performed at [address] [address] ([phone] Source of Specimen: A: Imaged ThinPrep Pap - Vaginal (1 monolayer slide) HPV Reflex?........... ...........HPV Regardless Clinical History Hysterectomy Z11.51 Encounter for screening for HPV Processing Lab: [address] [phone] Interpretation performed at [facility], [address] [place] [address] This Pap Test has been evaluated with [...] GYNECOLOGIC CYTOLOGY REPORT Patient Name: GARTH OLGUIN [facility] Rec: [id number] [facility] ANATOMIC PATHOLOGY [address] [place] [phone] [facility]igos 05/16/2025 05/17/2025 7:1 5 AM EDT us Janina Castro MD PATHOLOGY/CYTOLOGY ORDERABLES Fi nal Result [facility] [address] [place] [address] [phone] [facility] [employer]igos [employer]igos * (ABNORMAL) Hemoglobin and Hematocrit (03/26/2025 4:30 AM EDT) Only the most recent of2 resultswithin the time period is included. Hemoglobin 8.3(L) 12.0 - 16.0 g/dL 03/26/2025 4:30 AM EDT [facility] Hematocrit 24.5(L) 36.0 - 47.0 % 03/26/2025 4:30 AM EDT [facility] Blood (Blood Whole) 03/26/2025 4:30 AM EDT 03/26/2025 5:25 AM EDT Nereida WARD HEMATOLOGY ORDERABLES Final Resu lt [facility] [address] [place] [address] * (ABNORMAL) Basic Metabolic Panel (03/26/2025 4:30 AM EDT) Only the most recent of2 resultswithin the time period is included. Glucose 97 65 - 100 mg/dL 03/26/2025 4:30 AM EDT [facility] BUN 7 7 - 17 mg/dL 03/26/2025 4:30 AM EDT [facility] Creatinine 0.64 0.52 - 1.04 mg/dL 03/26/2025 4:30 AM EDT [facility] Sodium 129(L) 135 - 145 mEq/L 03/26/2025 4:30 AM EDT [facility] Potassium 3.5(L) 3.6 - 5.0 mEq/L 03/26/2025 4:30 AM EDT [facility] Chloride 100 98 - 107 mEq/L 03/26/2025 4:30 AM EDT [facility] CO2 24 22 - 32 mEq/L 03/26/2025 4:30 AM EDT [facility] Calcium 7.7(L) 8.4 - 10.2 mg/dL 03/26/2025 4:30 AM EDT [facility] Est, Glom Filt Rate 93 >60 mL/min/1.7 3m2 03/26/2025 4:30 AM EDT [facility] Comment: GFR calculated using CKD-EPI (2020) formula. Stage 1 Kidney damage (e.g., protein in the urine) with normal GFR >=90 Stage 2 Kidney damage with mild decrease in GFR 60-89 Stage 3a Moderate decrease in GFR 45-59 Stage 3b Moderate decrease in GFR 30-44 Stage 4 Severe reduction in GFR 15-29 Stage 5 Kidney failure <15 Blood (Blood Plasma) 03/26/2025 4:30 AM EDT 03/26/2025 5:25 AM EDT us Nereida WARD CHEMISTRY ORDERABLES Final Resul t [facility] [address] [place] [address] * (ABNORMAL) Urinalysis with Reflex to Culture (03/25/2025 5:24 PM EDT) Color, UA Yellow 03/25/2025 5:24 PM EDT [facility] Clarity, UA Clear 03/25/2025 5:24 PM EDT [facility] Glucose, Ur Negative Negative mg/dL 03/25/2025 5:24 PM EDT [facility] Ketones, Urine Trace(A) Negative mg/dL 03/25/2025 5:24 PM EDT [facility] Bilirubin, Urine Negative Negative 03/25/2025 5:24 PM EDT [facility] Specific [place], UA 1.015 1.005 - 1.030 03/25/2025 5:24 PM EDT [facility] pH, Urine 6.0 5.0 - 7.0 03/25/2025 5:24 PM EDT [facility] Blood, Urine Negative Negative 03/25/2025 5:24 PM EDT [facility] Protein, Urine Negative Negative mg/dL 03/25/2025 5:24 PM EDT [facility] Urobilinogen, Urine 0.2 E.U./dL <2.0 E.U./dL 03/25/2025 5:24 PM EDT [facility] Nitrate, UA Negative Negative 03/25/2025 5:24 PM EDT [facility] Leukocyte Esterase, Urine Negative Negative 03/25/2025 5:24 PM EDT [facility] Culture Indicated? No 03/25/2025 5:24 PM EDT [facility] WBC, UA 0-2 #/HPF 03/25/2025 5:24 PM EDT [facility] RBC, UA Rare #/HPF 03/25/2025 5:24 PM EDT [facility] Squam Epithel, UA Few #/LPF 03/25/2025 5:24 PM EDT [facility] MUCUS, URINE None Seen 03/25/2025 5:24 PM EDT [facility] BACTERIA, URINE None Seen 03/25/2025 5:24 PM EDT [facility] Urine 03/25/2025 5:24 PM EDT 03/25/2025 5:24 PM EDT us Brandon Jose MD [place] [address] * (ABNORMAL) Basic Metabolic Panel w/ Reflex to MG (03/25/2025 3:52 PM EDT) Glucose 97 65 - 100 mg/dL 03/25/2025 3:52 PM EDT [facility] BUN 12 7 - 17 mg/dL 03/25/2025 3:52 PM EDT [facility] Creatinine 0.73 0.52 - 1.04 mg/dL 03/25/2025 3:52 PM EDT [facility] Sodium 126(L) 135 - 145 mEq/L 03/25/2025 3:52 PM EDT [facility] Comment: Result amended from (126) (03/25/2025 3:53 PM) to () by CD. Result amended from (Not Reported) (03/25/2025 3:53 PM) to (126) by CD. Potassium 3.8 3.6 - 5.0 mEq/L 03/25/2025 3:52 PM EDT [facility] Chloride 98 98 - 107 mEq/L 03/25/2025 3:52 PM EDT [facility] CO2 24 22 - 32 mEq/L 03/25/2025 3:52 PM EDT [facility] Calcium 7.8(L) 8.4 - 10.2 mg/dL 03/25/2025 3:52 PM EDT [facility] Est, Glom Filt Rate 87 >60 mL/min/1.7 3m2 03/25/2025 3:52 PM EDT [facility] Comment: GFR calculated using CKD-EPI [...] PM EDT 03/25/2025 3:52 PM EDT Narrative [facility] - 03/25/2025 4:02 PM EDT Result corrected due to result entered in wrong spot. 03/25/2025 at 4:03 PM by JIMENEZ REYNOLDS. us Brandon Jose MD CHEMISTRY ORDERABLES Edited R esult - Final Performing Organization Address City/State/[facility] [place] [address] * US DUP LOWER EXTREMITY RIGHT ELVIRA [...] - 145 mEq/L 03/25/2025 2:35 PM EDT [facility] Blood (Blood Plasma) 03/25/2025 2:35 PM EDT 03/25/2025 2:35 PM EDT us Nereida WARD CHEMISTRY [place] [address] * XR KNEE RIGHT (1-2 VIEWS) (03/24/2025 [...] Dr. Lisa Rondon IMPRESSION: Arthroplasty without complication. Nereida WARD IMG DIAGNOSTIC IMAGING ORDERABLE S Final Result * CHP AN ETT (03/24/2025 10:59 AM EDT) Narrative Sinan Khan APRN - CRNA - 03/24/2025 10:59 AM EDT Sinan Khan APRN - CRNA 03/24/2025 11:21 AM Airway Date/Time: 03/24/2025 10:59 AM Urgency: elective Airway not difficult General Information and Staff Patient location during procedure: OR Resident/LIGHT RAIL TRAIN OPERATOR: Sinan Khan APRN - CRNA Performed: resident/LIGHT RAIL TRAIN OPERATOR Performed by: Sinan Khan APRN - CRNA [...] management and at surgeon's request Staffing Performed: resident/LIGHT RAIL TRAIN OPERATOR Resident/LIGHT RAIL TRAIN OPERATOR: Sinan Khan APRN - CRNA Performed by: [...] product R/B/A discussed and consented us Sinan Hdz CRNA ANESTHESIA ORDERABL ES Final Result * POCT Glucose (03/24/2025 8:49 AM EDT) POC Glucose 101 03/24/2025 8:49 AM EDT [facility] Blood Whole 03/24/2025 8:49 AM EDT 03/24/2025 8:49 AM EDT Narrative [facility] - 03/24/2025 8:50 AM EDT Ordered by an unspecified provider us Unknown Provider Result POINT OF CARE TEST ORDER LEANA Final Result Performing Organization Address City/State/[facility] Co de Phone Number [address] [place] [address] * RAVINDRA TYREL DIGITAL SCREEN BILATERAL (05/26/2024) Anatomical Region Laterality Modality Breast Bilateral Mammography Jeovany Betancourt MD IM MAMMOGRAPHY ORDERABLES Fi nal Result from Last 3 Months or Most Recently Relevant to Health Maintenance Insurance [employer]ILROAD MEDICARE [employer]RO[employer] MEDICARE [facility] [place] [address] [facility] Advance Directives Documents on File Type Date Recorded Patient Marketing Research Coordinator Expl anation ACP-Advance Directive 03/24/2025 8:21 AM L IVING WILL * Full Code (Latest Code Status on File) Date Activated Date Inactivated Comments 03/24/2025 8:13 AM 03/26/2025 3:23 PM * Full Code Date Activated Date Inactivated Comments 06/02/2018 11:51 AM 06/03/2018 2:34 PM * Full Code Date Activated Date Inactivated Comments 06/02/2018 5:55 AM 06/02/2018 11:50 AM Care Teams Manufacturing Engineer Machining Relationship Specialty Start Date End Date Janina Castro MD PCP - General Family Medicine 04/10/18
--- OUTSIDE RECORDS SUMMARY | 2025-06-14 11:21 | XMS_ITS | Encounter Summary ---
Author Organization [facility] Address [facility] [place] [address] Care Team Providers Care Machine Sweeper Brush Maker Name Role Phone Janina Castro MD Primary Care Provider [phone] Source Comments In the event this information is protected by the Federal Confidentiality of Alcohol and Drug AbusePatient Records regulations: The Federal rules restrict any use of the information to criminally investigate or prosecute any alcohol or drug abuse patient.[facility] Encounter Details Date Type Department Care Team ([facility] Contact Info) Description 04/27/2019 Patient Msg Medical Records [address] [place] [id number] Provider, [facility] Prescribed Patient Education Video(s) Social [...] filedocumented in this encounter Care Teams Machine Sweeper Brush Maker Relationship Specialty Start Date End Date Janina Castro MD [address] [place] [address] PCP - General Family Medicine 07/17/17 documented as of this encounter
--- OUTSIDE RECORDS SUMMARY | 2025-06-14 11:21 | XMS_ITS | Encounter Summary ---
Author Organization [facility] [employer] [facility] tem Address [id number] [address] [place] [address] Care Team Providers Care Lock Corner Machine Operator Name Role Phone Unavailable Primary Care Provider Unavailabl e Encounter Details Date Type Department Care Team (Late st Contact Info) Description 04/17/2023 Orders Only [facility] [address] [place] [address] Janina Castro MD [address] [place] [address] Social History Tobacco Use Types [...]
--- OUTSIDE RECORDS SUMMARY | 2025-06-14 11:21 | XMS_ITS | Encounter Summary ---
Author Organization [facility] Address [address] [place] [address] Care Team Providers Care Linseed Oil Press Tender Name Role Phone Janina Castro MD Primary Care Provider [phone] Source Comments In the event this information is protected by the Federal Confidentiality of Alcohol and Drug AbusePatient Records regulations: The Federal rules restrict any use of the information to criminally investigate or prosecute any alcohol or drug abuse patient.[facility] Encounter Details Date Type Department Care Team (Late st Contact Info) Description 10/15/2017 Get Medical Advice Endocrinology [address] [facility] FIRST FLOOR, [address] [place] [address] [place] [address] [facility] [address] [place] [address] RE: Visit Follow Up Question Social History [...] on filedocumented in this encounter Care Teams Linseed Oil Press Tender Relationship Specialty Start Date End Date Janina Castro MD [address] [place] [phone] PCP - General Family Medicine 07/17/17 documented as of this encounter
--- OUTSIDE RECORDS SUMMARY | 2025-06-14 11:21 | XMS_ITS | Encounter Summary ---
Author Organization [facility] Kenzei [facility] tem Address [id number] [address] [place] [address] Care Team Providers Care Photoflash Powder Mixer Name Role Phone Unavailable Primary Care Provider Unavailabl e Encounter Details Date Type Department Care Team (Late st Contact Info) Description 04/21/2023 Orders Only [facility] [address] [place] [phone] Ref Prov, [place] [address] Social History Tobacco Use Types Packs/Day Years [...]
--- OUTSIDE RECORDS SUMMARY | 2025-06-14 11:21 | XMS_ITS | Clinical Summary ---
Author Organization [facility] Address [address] [place] [address] Phone Care Team Providers Care Customer Service Driver Name Role Phone Janina Castro MD Primary Care Provider [phone] Allergies Active Allergy Reactions Criticality Noted Date [...] tablet by mouth once daily. Active omega 1-tiq-xci-fish oil (Fish OiL) 1,000 mg (120 mg-180 [...] by mouth once daily. 90 tablet 3 Active diclofenac (Voltaren) 75 mg EC tablet [...] infarction (Multi) 06/07/2023 PFO (patent foramen ovale) ([facility]) 06/07/2023 TIA (transient ischemic attack) 06/07/2023 Former smoker 06/07/2023 Resolved Problems Problem Noted Date Diagnosed Date Resolved Date Class 1 obesity with alveola r hypoventilation and body mass index (BMI) of 30.0 to 30.9 in adult 06/07/2023 02/25/2024 Encounters Date Type Department Care Team Description 04/18/[address] [phone] Phylicia Vivar LPN 03/22/[address] [address] Lsiette Dunn RN 03/17/2025 7:33 AM EDT - 03/17/2025 11:59 PM EDT Hospital Encounter [place] [address] [place] [address] [phone] Discharge Disposition: Home 03/17/2025 7:33 AM EDT - 03/17/2025 11:59 PM EDT [facility] [address] [place] [phone] Discharge Disposition: Home 03/17/2025 7:33 AM EDT Hospital Encounter [place] [address] [place] [phone] Discharge Disposition: Home 03/17/2025 7:32 AM EDT Hospital Encounter [place] [address] [place] [phone] Discharge Disposition: Home 03/17/2025 7:31 AM EDT Hospital Encounter [address] [place] [phone] Preop cardiovascular exam; ASHD (arteriosclerotic heart disease); History of PTCA; Myocardial infarction, unspecified [place] type, unspecified artery (Multi); Essential hypertension Discharge Disposition: Home 03/17/2025 Travel 03/16/2025 Travel from Last 3 Months Immunizations Immunization [...] Info) Description 02/16/2026 9:45 AM EDT Appointment [facility] [address] [place] [address] 03/01/2026 10:30 AM EDT Office Visit [facility] [address] [place] [address] Margi Wang DO [address] [facility] [address] [place] [address] Health Maintenance Due Date Last Done Comments CT Colonography 1952 FIT-DNA (Cologuard) 1950 FIT 1950 Lipid Panel 1950 Sigmoidoscopy 1950 TSH Level 1950 MMR Vaccines (1 of 1 - Standard series) 1953 Diabetes Screening 1970 Hepatitis C Screening 1970 DTaP/Tdap/Td Vaccines (1 - Tdap) 1974 Zoster Vaccines (1 of 2) 2002 RSV High Risk: (Elderly (60+) or Population) (1 - Risk 60-74 years 1-dose series) 2012 Bone Density Scan 2017 10/13/2014 COVID-19 Vaccine ( season) 2025 08/02/2024, 07/19/2024, 10/21/2023, Additional history exists Medicare Annual Wellness Visit (AWV) 02/10/2025 02/10/2024, 08/31/2021, 02/15/2021 Mammogram 05/26/2025 05/26/2024, 05/13, 08/01/2021, Additional history exists Influenza Vaccine (#1) 2025 , 07/27/2021, 07/26/2021, Additional history exists Colonoscopy 12/04/2027 12/04/2017, 12/10/2013 Colorectal Cancer Screening 12/04/2027 Pneumococcal Vaccine Completed 06/25/2021, 07/18/2020, 07/13/2020 HIB [...] disease) History of PTCA Myocardial infarction, unspecified [place] type, unspecified artery (Multi) Essential hypertension from [...] Neha Roman 03/17/2025 4:40 PM Dictation workstation: [id number] Narrative 03/17/2025 4:40 PM EDT Interpreted By: Neha Roman and Giannuzzi Michael STUDY: MYOCARDIAL PERFUSION STRESS TEST WITH LEXISCAN Performing facility: [facility], [address] [place] [address], [address], [place] [id number] [facility] Provider: Sintia Wang DO, FACC PCP: Dr. Gloria Castro Supervising provider: Sintia Wang DO, FACLuis Fernando INDICATION: Signs/Symptoms:poc, cad, htn. ,Z01.810 Encounter for preprocedural cardiovascular examination,I25.10 Atherosclerotic heart disease of [place] coronary artery without angina pectoris,Z98.61 Coronary angioplasty status,I21.9 Acute myocardial infarction, unspecified,I10 Essential (primary) hypertension HISTORY: Gender: F; Age: 74 y/o ; Height: HT 162.6 cm cm; Weight: WT 78.019 kg kg. CAD; High Cholesterol; Previous [place];2017 Quit smoking 38 years ago. Cardiac catheterization on 2016 COMPARISON: No comparison. ACCESSION NUMBER(S): [id number] ORDERING CLINICIAN: MARGI WANG TECHNIQUE: ONE DAY [...] PERFUSION STRESS TEST WITH LEXISCAN Performing facility: [facility], [address] [place] [address], [address], [place] [address] [facility] Provider: Sintia Wang DO, FACC PCP: Dr. Gloria Castro Supervising provider: Sintia Wang DO, FACC INDICATION: Signs/Symptoms:poc, cad, htn. ,Z01.810 Encounter for preprocedural cardiovascular examination,I25.10 Atherosclerotic heart disease of [place] coronary artery without angina pectoris,Z98.61 Coronary angioplasty status,I21.9 Acute myocardial infarction, unspecified,I10 Essential (primary) hypertension HISTORY: Gender: F; Age: 74 y/o ; Height: HT 162.6 cm cm; Weight: WT 78.019 kg kg. CAD; High Cholesterol; Previous [place];2016 Quit smoking 38 years ago. Cardiac catheterization on 2016 COMPARISON: No comparison. ACCESSION NUMBER(S): [id number] ORDERING CLINICIAN: MARGI WANG TECHNIQUE: ONE DAY [...] Neha Roman 03/17/2025 4:40 PM Dictation workstation: [id number] Margi Wang DO CV STRESS PROCEDURES Final Result from Last 3 Months Insurance [facility] MEDIC[facility] [employer] [facility] MEDICARE [employer] Care Teams Customer Service Driver Relationship Specialty Start Date End Date Janina Castro MD [address] [place] [id number] PCP - General 04/03/21
--- OUTSIDE RECORDS SUMMARY | 2025-06-14 11:21 | XMS_ITS | Clinical Summary ---
Author Organization [facility] Address [address] [place] [address] Care Team Providers Care Contract Coordinator Name Role Phone Unavailable Primary Care Provider [...]
--- OUTSIDE RECORDS SUMMARY | 2025-06-14 11:21 | XMS_ITS | Encounter Summary ---
Author Organization [facility] Address [address] [place] [address] Phone Care Team Providers Care Manager Trust Name Role Phone Janina Castro MD Primary Care Provider [phone] Encounter Details Date Type Department Care Team (Late st Contact Info) Description 04/25/2020 Orders Only [facility] [address] [place] [address] Conversion, Onbase Social History Tobacco Use Types [...] Description 02/16/2026 9:45 AM EDT Appointment Mariela [address] [place] [phone] 03/01/2026 10:30 AM EDT Office Visit [address] [place] [phone] Lul Rose DO [address] [facility] [address] [place] [address] Scheduled Orders Name Type Priority Associated Diagnoses Orde r Schedule OUTSIDE LAB SCAN Lab Ordered: 04/25/2020 documented as of this encounter Visit Diagnoses Not on filedocumented in this encounter Care Teams Manager Trust Relationship Specialty Start Date End Date Janina Castro MD [address] [place], [place] [phone] PCP - General 04/03/21 documented as of this encounter
--- OUTSIDE RECORDS SUMMARY | 2025-06-14 11:21 | XMS_ITS | Encounter Summary ---
Author Organization [facility] Address [address] [place] [address] Phone Care Team Providers Care Fire Extinguisher Tester Name Role Phone Janina Castro MD Primary Care Provider [phone] Encounter Details Date Type Department Care Team (Late st Contact Info) Description 02/28/2023 Orders Only [facility] [address] [place] [address] Conversion, Onbase Social History Tobacco Use Types [...] Description 02/16/2026 9:45 AM EDT Appointment Mariela [address] [place] [phone] 03/01/2026 10:30 AM EDT Office Visit [address] [place] [address] Lul Rose DO [address] [facility] [address] [place] [address] Scheduled Orders Name Type Priority Associated Diagnoses Orde r Schedule OUTSIDE LAB SCAN Lab Ordered: 02/28/2023 documented as of this encounter Visit Diagnoses Not on filedocumented in this encounter Care Teams Fire Extinguisher Tester Relationship Specialty Start Date End Date Janina Castro MD [address] [place], [place] [id number] PCP - General 04/03/21 documented as of this encounter
--- OUTSIDE RECORDS SUMMARY | 2025-06-14 11:21 | XMS_ITS | Encounter Summary ---
Author Organization [facility] Address [address] [place] [address] Care Team Providers Care Lumber Carrier Name Role Phone Janina Castro MD Primary Care Provider [phone] Source Comments In the event this information is protected by the Federal Confidentiality of Alcohol and Drug AbusePatient Records regulations: The Federal rules restrict any use of the information to criminally investigate or prosecute any alcohol or drug abuse patient.[facility] Encounter Details Date Type Department Care Team (Late st Contact Info) Description 10/24/2017 Get Medical Advice Endocrinology [address] [facility] FIRST [address]LOOR, [address] [place] [address] [place] [address] [facility] [address] [place] [address] RE: Medication Question (Not Renewal) Social History [...] on filedocumented in this encounter Care Teams Lumber Carrier Relationship Specialty Start Date End Date Janina Castro MD [address] [place] [address] PCP - General Family Medicine 07/17/17 documented as of this encounter
--- NOTE | 2025-06-14 11:24 | MM_ITS ---
Patient Name: GARTH OLGUIN MR#: [id number] : 1950 Exam Date: 06/14/2025 Ordering Doctor: DR AURELIA QUIROGA M.D. RADIOLOGY REPORT PROCEDURE: MM TOMOSYNTHESIS SCREENING BI COMPARISON: MM TOMOSYNTHESIS SCREENING BI, 05/26/2024. MG MAMM SCREEN 3D DAMI CAD, 08/20/2022. MG MAMM SCREEN 3D DAMI CAD, 07/31/2021. MG MAMM DAMI SCRN W CAD DIG, 03/27/2009. INDICATIONS: Screening Calculator Name NCI Breast Cancer Risk Assessment Tool 5 Year Breast Cancer Risk 1.70% Lifetime Breast Cancer Risk 4.50% Personal Breast Cancer No Personal Ovarian Cancer No Treatments hysterectomy Family Cancers Mother with pancreatic cancer at age 70. LOCATION: [facility] BREAST COMPOSITION: There are scattered areas of fibroglandular density. FINDINGS: DIAGNOSTIC CATEGORY 1--NEGATIVE. RIGHT BREAST: No significant suspicious finding. LEFT BREAST: No significant suspicious finding. RECOMMENDATIONS: ROUTINE MAMMOGRAM AND CLINICAL EVALUATION IN 12 MONTHS. Dictated by: Ron Aaron DO on 06/14/2025 at 14:48 Approved by: Ron Aaron DO on 06/14/2025 at 14:49
--- OUTSIDE RECORDS SUMMARY | 2025-06-14 11:29 | XMS_ITS | CCD ---
Author Organization [facility] Care Team Providers Care Clothes Marker Name Role Phone AURELIA QUIROGA Unavailable Unavailable JENISON, BAILEY L Unavailable Unavailable JENISON, BAILEY L Unavailable Unavailable AURELIA QUIROGA Unavailable Unavailable JENISON, BAILEY L Unavailable Unavailable JENISON, BAILEY L Unavailable Unavailable AURELIA QUIROGA Unavailable Unavailable Aurelia Quiroga Primary Care Provider [phone] Kimber KILLIAN, Aurelia Primary Care Provider Kimber KILLIAN, Aurelia Primary Care Provider [phone] Kimber KILLIAN, Aurelia Primary Care Provider Aurelia Quiroga MD Primary Care Provider Kimber KILLIAN, Aurelia Primary Care Provider Aurelia Quiroga Unavailable Unavailable Unavailable Penny Layton Unavailable Kimber KILLIAN, Aurelia Primary Care Provider [phone] Jaya Hadley Unavailable KIMBER, DR AURELIA Omalley Admitting Unavailable KIMBER, DR AURELIA Omalley Attending Unavailable KIMBER, DR AURELIA Omalley Primary Care Unavailable KIMBER, DR AURELIA Omalley Consulting Unavailable TAMIA, DR THIERRY Calzada Admitting Unavailable TAMIA, DR THIERRY Calzada Attending Unavailable KIMBER, DR AURELIA Omalley Primary Care Unavailable Carlisle, DR Hines Consulting Unavailable TAMIA, DR THIERRY Calzada Consulting Unavailable KIMBER, DR AURELIA Omalley Admitting Unavailable KIMBER, DR AURELIA Omalley Attending Unavailable KIMBER, DR AURELIA Omalley Primary Care Unavailable KIMBER, DR AURELIA Omalley Consulting Unavailable KIMBER, DR AURELIA Omalley Admitting Unavailable KIMBER, DR AURELIA Omalley Attending Unavailable QUIROGA, DR AURELIA Omalley Primary Care Unavailable QUIROGA, DR AURELIA Omalley Primary Care Unavailable NIGEL, DR CUMMINGS Admitting Unavailable NIGEL, DR CUMMINGS Attending Unavailable NIGEL, DR CUMMINGS Consulting Unavailable PENNY LAYTON JR Admitting Unavailable PENNY LAYTON JR Attending Unavailable DR AURELIA QUIROGA Primary Care Unavailable TARAH, DR MARY Villar Consulting Unavailable PENNY LAYTON JR Consulting Unavailable Aurelia Quiroga Unavailable MD Aurelia Quiroga Primary Care Provider MD Damir Engle Attending Provider Aurelia Quiroga MD Primary Care Provider TASH Gordillo Attending Provider Anu Gordillo Unavailable Milton, Dr. Lul Foley Referring Unava ilable Kimber, Dr. Aurelia Walls Primary Care Unav ailable Milton, Dr. Lul Foley Attending Unava ilable Milton, Dr. Lul Foley Attending Unava ilable Kimber, Dr. Aurelia Walls Primary Care Unav ailable Kimber, Dr. Aurelia Walls Referring Unav MD Aurelia Kiran Primary Care Provider [phone] MD Danny Rodríguez Emergency Provider MD Aurelia Quiroga Primary Care Provider MD Aurelia Quiroga Attending Provider MD Aurelia Quiroga Primary Care Provider MD Darvin Zabmrano II Attending Provider Aurelia Quiroga MD Primary Care Provider Aurelia Quiroga MD Primary Care Provider [phone] Aurelia Quiroga MD Primary Care Provider NON STAFF Attending Provider Unavailable Aurelia Quiroga MD Primary Care Provider NON STAFF Attending Unavailable NON STAFF Admitting Unavailable LUL ROSE Attending Unavailable LUL ROSE Referring Unavailable AURELIA QUIROGA Primary Care Unavailable MILTONLUL TERRY Referring Unavailable AURELIA QUIROGA Primary Care Unavailable MILTONLUL TERRY S Referring Unavailable AURELIA QUIROGA Primary Care Unavailable MILTON, LUL S Referring Unavailable AURELIA QUIROGA Primary Care Unavailable MILTONLUL TERRY S Referring Unavailable AURELIA QUIROGA Primary Care Unavailable Aurelia Quiroga MD Primary Care Yari Godoy MD Attending Unavailable AURELIA QUIROAG Primary Care Unavailable AURELIA QUIROGA Primary Care Unavailable YARI YOUNGER Attending Unavailable YARI YOUNGER Admitting Unavailable JAZIEL MARTINEZ Consulting Unavailable Allergies Allergy Classification Reported Allergen(s) Allergy Type Date of Onset Reaction(s) Facility nickel sulfate (1 source) nickel sulfate Drug Allergy 07-31-20 06 [facility] Quinolones (antibiotic) (1 source) Ciprofloxacin Drug Allergy 04-23-20 18 [facility] (20 sources) Ciprofloxacin; Translations: [ciprofloxacin] Drug Allergy 02-18-20 18 Other: See Comments, Unknown [place], [place] Comment on above: Onset Date: 02/18/20 18 (20 sources) nickel sulfate Drug Allergy 07-31-20 Unknown Reaction [place], [place] (3 sources) Other Propensity to adverse reactions 07-12-20 13 [place], [place] (8 sources) Leucine Drug Allergy 05-29-20 17 [facility] (19 sources) nickel Drug Allergy 07-31-20 [facility] (1 source) Beta-Adrenergic Rosette; Translations: [Beta Adrenergic Blockers] Allergy to drug (finding) [facility] DO Work Phone: (1 source) Ciprofloxacin Drug Allergy [facility] Rep[facility] (20 sources) Losartan Drug Allergy 05-04-20 Hives, Other (See Comments) [facility] Comment on above: Onset Date: 05/04/20 18 (2 sources) Allergies Reconciled Propensity to adverse reactions Unknown [facility] Other (2 sources) patient allergy list reviewed by nurse or physicia Propensity to adverse reactions 07-15-20 Comment:Done [facility] Other (3 sources) beta-Blocking agent Propensity to adverse reactions to drug 06-07-20 [facility] (2 sources) Wheat gluten extract Drug Allergy 03-24-20 Other (See Comments) [facility] (1 source) Ciprofloxacin Drug Allergy 03-01-20 [facility] Repository (1 source) Losartan Drug Allergy 03-01-20 [facility] Rep[facility] (1 source) nickel Drug Allergy 03-01-20 [facility] Repository (1 source) Lisinopril; Translations: [lisinopril] Drug Allergy [facility] Repository NEGATED: Highlighted row has been ruled out! (7 sources) Other Propensity to adverse reactions 07-12-[address] [facility] [employer] Medications Current Medications Medication Drug Class(es) Dates Sig (Normalized) Sig (Original) amitriptyline hydrochloride 10 mg oral tablet (5 sources) Tricyclic Antidepressant Start: 09-13-2024 take 1 tablet by mouth once daily at bedtime Amitriptyline 10 mg tablet Active 0 .ROUTE .COMPLEX September 13, 2024 9:36am TAKE 1 TABLET BY MOUTH DAILY AT BEDTIME Start: 07-13-2024 End: 09-13-2024 take 1 tablet by mouth once daily at bedtime Amitriptyline 10 mg tablet Discontinued 10 MG PO Daily at bedtime July 13, 2024 12:00am September 13, 2024 9:36am End: 02-25-2024 take 1 tablet by mouth once daily at bedtime amitriptyline (Elavil) 100 mg tablet Take 1 tablet (100 mg) by mouth once daily at bedtime. 02/25/2024 Discontinued (Therapy completed) take 1 tablet by wallace th once daily amitriptyline (ELAVIL) 10 MG tablet Take 1 tablet by mouth nightly 0 Active ascorbic acid 500 mg extended release oral capsule (20 sources) Vitamin C Start: 07-23-2017 take 1 capsule by mouth once daily Ascorbic Acid (Vitamin C) (Vitamin C) 500 mg Capsule, Extended Release Active 500 MG PO Daily July 23, 2017 12:00am vitamin C (ASCOR BIC ACID) 500 MG tablet Take by mouth Active take 1 capsule by mouth once satnam ly ascorbic acid, vitamin C, 500 mg capsule Take 1 capsule by mouth once daily. Active aspirin 325 mg oral tablet (20 sources) Platelet Aggregation Inhibitor, Nonsteroidal Anti-inflammatory Drug Start: 03-24-2025 End: 04-23-2025 take 1 tablet by mouth once daily aspirin (NORA ASPIRIN) 325 MG tablet Take 1 tablet by mouth daily 30 tablet 03/24/2025 Active Start: 07-23-2017 take 1 tablet by wallace th once daily Aspirin 81 mg Tablet,Chewable Active 81 MG PO Daily July 23, 2017 12:00am End: 06-12-2025 take 1 tablet by mouth once daily aspirin 81 MG tablet Indications: STOP 7 DAYS PRIOR Take 1 tablet by mouth daily Indications: STOP 7 DAYS PRIOR 03/24/2025 Discontinued (LIST CLEANUP) End: 02-24-2025 take 1 tablet by mouth once daily aspirin 81 mg EC tablet Take 1 tablet (81 mg) by mouth once daily. 02/24/2025 Discontinued (Med List Cleanup) BABY ASPIRIN ORA L Indications: Do not start taking until 05/27/2019 Take by mouth. 0 Active Comment on above: Take by mouth. atorvastatin 40 mg oral tablet (20 sources) HMG-CoA Reductase Inhibitor Start: 07-23-2017 Atorvastatin (Lipitor) 40 mg Tablet Active 20 MG PO July 23, 2017 12:00am the pt takes it friday End: 03-24-2025 atorvastatin (LIPITOR) 20 MG tablet Take 1 tablet by mouth 03/24/2025 Discontinued (LIST CLEANUP) Comment on above: Take 20 mg by mouth. 3 x a week Bacillus coagulans / Inulin (3 sources) End: 02-24-2025 take 1 capsule by mouth once daily BACILLUS COAGULANS-INULIN ORAL Take 1 capsule by mouth once daily. 02/24/2025 Discontinued (Med List Cleanup) take 1 capsule by mouth once satnam ly BACILLUS COAGULANS-INULIN ORAL Take 1 capsule by mouth once daily. Active Calcium (18 sources) Phosphate Binder, Calcium Calcium + D Acti ve calcium carbonate 1500 mg / cholecalciferol 0.01 mg oral tablet (16 sources) Vitamin D Start: 07-23-2017 take 1 tablet by mouth once daily Calcium Carbonate-Vitamin D3 (Calcium 600 + D(3)) 600 mg(1,500mg) -400 unit Tablet Active 1 TAB PO Daily July 23, 2017 12:00am calcium citrate 950 mg / cholecalciferol 250 unt oral tablet (1 source) Vitamin D take 1 tablet by mouth once daily Calcium-Cholecalcifer ol 200-6.25 MG-MCG TABS calcium citrate 200 mg calcium-vitamin D3 6.25 mcg (250 unit) tablet 1 po qd d 0 Active cefdinir 300 mg oral capsule (1 source) Cephalosporin Antibacterial Cefdinir 300 MG as directed Orally bid for 14 days Active cholecalciferol 0.025 mg oral tablet (11 sources) Vitamin D vitamin D (CHOLECALCIFEROL) 25 MCG (1000 UT) TABS tablet Take by mouth daily Active chondroitin sulfates 400 mg / glucosamine sulfate 500 mg oral tablet (11 sources) glucosamine-fredy droit in 500-400 MG tablet Take by mouth Active take 1 tablet by wallace th in the morning glucosamine-chondroitin 500-400 mg table t Take 1 tablet by mouth early in the morning.. Active diclofenac sodium 0.01 mg/mg topical gel (20 sources) Nonsteroidal Anti-inflammatory Drug Start: 02-17-2024 Diclofenac Sodium 1 % gel Active 2 GM TOPICAL .2-5 times a day as needed for knee pain 11 11February 17, 2024 12:00am Start: 02-17-2024 Diclofenac Sod ium Active 2 GM TOPICAL .2-5 times a day 11 11February 17, 2024 12:00am Start: 02-24-2023 take 1 tablet by wallace every twelve hours Diclofenac Sodium 75 MG 1 tablet as needed Orally Twice a day for 90 days February, Not-Taking dicyclomine hydrochloride 10 mg oral capsule (20 sources) Anticholinergic Start: 05-11-2022 End: 07-13-2024 take 1 capsule by mouth twice daily as needed for pain Dicyclomine 10 mg capsule Active 10 MG PO Twice daily as needed for abdominal pain July 13, 2024 2:29pm Start: 04-05-2021 End: 03-24-2025 take 1 tablet by mouth three times daily as needed Dicyclomine HCl 20 MG 1 Tablet Orally THREE TIMES A DAY NEEDED for 90 days Mar, Active take 1 tablet by wallace four times daily as needed dicyclomine (Bentyl) 20 mg tablet Take 1 tablet (20 mg) by mouth 4 times a day as needed. As directed Active Dicyclomine HCl - 20 MG Oral Tablet USE DIRECTED Quantity: 0 Refills: 0 Ordered: 06-Mar-2022 DO Active diphenhydrAMINE (1 source) Histamine-1 Receptor Antagonist Start: 03-24-2025 diphenhydrAMINE (BENADRYL) capsule 25 mg docosahexaenoic acid 120 mg / eicosapentaenoic acid 180 mg oral capsule (2 sources) [place]-3 Fatty Ac ids (FISH OIL) 1000 MG capsule Take by mouth Active docusate sodium 100 mg oral capsule (1 source) Start: 03-26-2025 End: 04-05-2025 take 1 capsule by mouth twice daily docusate sodium (COLACE) 100 MG capsule Take 1 capsule by mouth 2 times daily for 10 days 20 capsule 03/26/2025 04/05/2025 Active Flaxseed, Linseed, (FLAX SEED OIL PO) (1 source) Flaxseed, Linsee d, (FLAX SEED OIL PO) Take by mouth 0 Active FLAXSEED, LINSEED, PO (2 sources) FLAXSEED, LINSEE D, PO Take by mouth Active Glucosamine-Chondroit -Vit C-Mn (GLUCOSAMINE CHONDR 500 COMPLEX PO) (6 sources) Glucosamine-Fredy sailaja it-Vit C-Mn (GLUCOSAMINE CHONDR 500 COMPLEX PO) Take by mouth daily 0 Active halobetasol propionate 0.5 mg/ml topical cream (20 sources) Corticosteroid Start: 07-23-2017 Halobetasol Propionate 0.05 % Cream Active 1 APPLIC TOPICAL Daily as needed for Itching July 23, 2017 12:00am Start: 04-11-2016 halobetasol (U LTRAVATE) 0.05 % cream USE NEEDED 2 04/11/2016 Active HALOBETASOL PROP IONATE TOP Use as directed Active Halobetasol Prop ionate Active Lactobacillus Combination No.4 (Probiotic) 3 billion cell Capsule (16 sources) Start: 07-23-2017 take 3 capsules by mouth once daily Lactobacillus Combination No.4 (Probiotic) 3 billion cell Capsule Active [id number] UNIT PO Daily July 23, 2017 12:00am linseed oil 1000 mg oral capsule (1 source) End: 02-25-2024 take 1 capsule by mouth once daily flaxseed oiL 1,000 mg capsule Take 1 capsule (1,000 mg) by mouth once daily. 02/25/2024 Discontinued (Therapy completed) loratadine 10 mg oral tablet (7 sources) loratadine (CLARITIN) 10 MG tablet Take 10 mg by mouth 0 Active Comment on above: Take 10 mg by mouth as needed. methylPREDNISolone 4 mg oral tablet (2 sources) Corticosteroid Start: 05-08-2023 Medrol (Jez) 4 MG as directed Orally as directed for 5 days Apr, Active 24 hr metoprolol succinate 25 mg extended release oral tablet (20 sources) beta-Adrenergic Rosette Start: 05-25-2022 End: 04-12-2025 take 1 tablet by mouth once daily metoprolol succinate (TOPROL XL) 25 MG extended release tablet Take 1 tablet by mouth daily 05/25/2022 Active Start: 07-23-2017 take 1 tablet by wallace twice daily Metoprolol Tartrate 25 mg Tablet Active 25 MG PO Twice daily July 23, 2017 12:00am Start: 06-04-2017 take 0.5 tablet by m outh twice daily metoprolol tartrate, short acting, (LOPRESSOR) 25 mg tablet Take 0.5 tablets by mouth twice daily. 0 06/04/2017 Active Comment on above: Take 0.5 tablets by mouth twice daily. Multiple Vitamins-Calcium (ONE-A-DAY WOMENS FORMULA PO) (10 sources) Multiple Vitamin s-Calcium (ONE-A-DAY WOMENS FORMULA PO) Take by mouth Active Multiple Vitamin s-Calcium (ONE-A-DAY WOMENS FORMULA PO) Take by mouth 0 Active Rkmbbjpd-Nskk-Of-Calcium-Min s (One Daily ididworks [employer]) 18 mg iron-400 mcg-450 mg Ca Tablet (16 sources) Start: 07-23-2017 take 1 tablet by mouth once daily Azwmmecq-Lypa-Fg-Calcium-Mins (One Daily [employer]) 18 mg iron-400 mcg-450 mg Ca Tablet Active 1 TAB PO Daily July 23, 2017 12:00am MULTIVITAMIN ORAL (8 sources) take 1 tablet by mouth once daily MULTIVITAMIN ORAL Take 1 tablet by mouth once daily. Active Multivitamin preparation (18 sources) Multivitamin Act thong nitrofurantoin, macrocrystals 25 mg / nitrofurantoin, monohydrate 75 mg oral capsule (1 source) Nitrofuran Antibacterial Start: 11-22-2022 End: 02-25-2024 nitrofurantoin, macrocrystal-monohydrate, (Macrobid) 100 mg capsule Take 1 capsule (100 mg) by mouth. 11/22/2022 02/25/2024 Discontinued (Therapy completed) nitroglycerin 0.4 mg sublingual tablet (20 sources) Nitrate Vasodilator Start: 07-23-2017 End: 03-24-2025 Nitroglycerin (Nitrostat) 0. 4 mg Tablet, Sublingual Active 0.4 MG SUBLINGUAL every 5 to 15 minutes as needed for Chest Pain July 23, 2017 12:00am nitroglycerin (N itrostat) 0.[address] 1 tablet (0.3 mg) under the tongue. Active Nitrostat 0.3 MG Sublingual PRN Active omega 7-ndm-rhs-fish oil (Fish OiL) 1,000 mg (120 mg-180 mg) capsule (8 sources) take 1 capsule by mouth once daily omega 4-nua-pfk-fish oil (Fish OiL) 1,000 mg (120 mg-180 mg) capsule Take 1 capsule (1,000 mg) by mouth once daily. Active ondansetron (ZOFRAN-ODT) disintegrating tablet 4 mg (1 source) Start: ondansetron (ZOFRAN-ODT) disintegrating tablet 4 mg oxyCODONE (2 sources) Opioid Agonist Start: oxyCODONE (ROXICODONE) immediate release tablet 5 mg Start: 03-24-2025 End: 03-29-2025 take 1 tablet by mouth every six hours as needed for pain oxyCODONE (ROXICODONE) 5 MG immediate release tablet Indications: S/P total knee arthroplasty, right Take 1 tablet by mouth every 6 hours as needed for Pain for up to 5 days. Intended supply: 5 days. Take lowest dose possible to manage pain Max Daily Amount: 20 mg 20 tablet 03/24/2025 03/29/2025 Active polyethylene glycol 3350 36871 mg powder for oral solution (16 sources) Osmotic Laxative Start: 03-25-2025 17 g, Oral, D AILY, First dose on Fri03/25/25 at 0900, Until Discontinued, Stir and dissolve one packet of powder (17 g) in any 4 to 8 ounces of beverage (cold, hot or room temperature) then drink, Post-op Start: 08-09-2022 take 17 g by mouth once daily Polyethylene Glycol 3350 17 GM/SCOOP 17gm Orally Once a day for 30 day(s) please dispense largest quantity Jul, Not-Taking pregabalin 75 mg oral capsul e (3 sources) Start: 03-24-2025 End: 04-07-2025 Start: 03-24-2025 75 mg, Oral, O NCE, 1 dose, On Fri03/24/25 at 0830, Administer 60 minutes prior to surgery., Pre-op (day of surgery) 72 hr scopolamine 0.0139 mg/hr transdermal system (1 source) Anticholinergic Start: 03-24-2025 1 patch, TransDERmal, Administer over 72 Hours, EVERY 72 HOURS, First dose on Tracy 03/24/25 at 0830, Delivers 1 mg over 3 days. Apply patch to hairless area behind the ear. Do NOT cut patch. sennosides, alf 8.6 mg oral tablet (1 source) Start: 03-24-2025 sodium chloride 1000 mg oral tablet (7 sources) Start: 03-26-2025 End: 03-31-2025 take 2 tablets by mouth at bedtime sodium chloride 1 g tablet Take 2 tablets by mouth in the morning and at bedtime for 5 days 20 tablet 03/26/2025 03/31/2025 Active Start: 03-25-2025 2 g, Oral, 2 T IMES DAILY WITH MEALS, First dose on Fri03/25/25 at 1700, Until Discontinued Start: 03-24-2025 1,000 mL (13 m L/kg), IntraVENous, at 495.9 mL/hr, Administer over 121 Minutes, ONCE, On Fri03/25/25 at 0800, For 1 dose Start: 03-24-2025 Turmeric extract (8 sources) take 1 capsule by mouth once daily TURMERIC ORAL Take 1 capsule by mouth once daily. Active ubidecarenone 200 mg oral capsule (20 sources) Start: 07-23-2017 take 10 capsules by mouth once daily Coenzyme Q10 200 mg Capsule Active 200 MG PO Daily July 23, 2017 12:00am ubidecarenone Q- 10 (CO Q-10) 10 mg cap Indications: Mesenteric ischemia (HCC) , Primary hypercoagulable state (HCC) , Coronary artery disease involving [place] heart without angina pectoris, unspecified vessel or lesion type Take by mouth twice daily. 0 Active Coenzyme Q10 200 MG CAPS Take by mouth daily 0 Active Comment on above: Take by mouth twice daily. ubidecarenone 100 mg / vitamin e 5 unt oral capsule (2 sources) take 1 capsule by mouth once Coenzyme Q10 (COQ10) 100 MG CAPS Take by mouth Active valsartan 80 mg oral tablet (5 sources) Angiotensin 2 Receptor Rosette End: 02-25-20 take 1 tablet by mouth once daily valsartan (Diovan) 80 mg tablet Take 1 tablet (80 mg) by mouth once daily. 02/25/2024 Discontinued (Therapy completed) Vitamin D (3 sources) Vitamin D Active VITAMIN K PO (2 sources) VITAMIN K PO Hieu e by mouth Active xylitol 550 mg oral lozenge (16 sources) Start: 03-31-20 Xylitol (Xylimelts) 550 mg Muco-Adhesive Buccal Tablet Active 1 MG MUCOUS MEM Daily March 31, 2021 12:00am xylitoL (XyliMelts) 550 mg muco-adhesive buccal tablet (8 sources) take 1 tablet by mouth once daily xylitoL (XyliMelts) 550 mg muco-adhesive buccal tablet Take by mouth once daily. Active Completed/Discontinued Medications Medication Drug Class(es) Dates Sig (Normalized) Sig (Original) acetaminophen 325 mg oral tablet (20 sources) Start: 03-24-2025 650 mg, Oral, EVERY 6 HOURS, First dose on [facility] 03/24/25 at 1430, Until Discontinued, Maximum dose of acetaminophen is 4000 mg from all sources in 24 hours., Post-op Start: 03-24-2025 End: 03-24-2025 1,000 mg, Oral, ONCE, 1 dose , On Tracy 03/24/25 at 0830, Administer 60 minutes prior to surgery., Pre-op (day of surgery) Start: 05-24-2019 take 1 tablet by wallace th every four hours as needed acetaminophen (TYLENOL) 500 mg tablet Take 1 tablet by mouth every 4 hours as needed. 0 05/24/2019 Active Start: 07-23-2017 End: 02-10-2024 Acetaminophen (Tylenol) 325 mg Tablet Discontinued 500 MG PO EVERY 4-6 HOURS as needed for Pain July 23, 2017 12:00am February 10, 2024 11:34am take 325-650 mg by m outh every four hours as needed acetaminophen (TylenoL) 325 mg tablet Take 1-2 tablets (325-650 mg) by mouth every 4 hours if needed. Active Tylenol Active Tylenol TABS HIEU E 1 TO 2 TABLETS EVERY 4 HOURS NEEDED Quantity: 0 Refills: 0 Ordered: 06-Mar-2022 DO Active Comment on above: Take 1 tablet by wallace th every 4 hours as needed. acetaminophen 325 mg / HYDROcodone bitartrate 5 mg oral tablet (16 sources) Opioid Agonist Start: 2 End: 4 take 1 tablet by mouth three times daily as needed for pain Hydrocodone-Acetamino phen 5-325 mg tablet Discontinued 1 TAB PO Three times daily as needed for pain 7 3 May 11, 2022 February 10, 2024 11:35am 10 ml aminophylline 25 mg/ml injection (1 source) Start: 5 End: 5 50 mg, intravenous, Administer over 1 Minutes, Once, On Tracy 03/17/25 at 1015, For 1 dose Start: 03-17-2025 End: 03-17-2025 50 mg, intravenous, Administ er over 1 Minutes, Once, On Tracy 03/17/25 at 1015, For 1 dose azithromycin 250 mg oral tablet (16 sources) Macrolide Antimicrobial Start: 07-10-2023 End: 02-10-2024 take 1 tablet by mouth once daily Azithromycin (Zithromax Z-Jez) 250 mg tablet Discontinued 250 MG PO Daily July 10, 2023 12:00am February 10, 2024 11:34am start on day 2 of therapy first dose given in ER Azithromycin Act thong bisacodyl 5 mg delayed release oral tablet (1 source) Stimulant Laxative Start: 03-24-2025 take 5 mg by mouth once daily as needed for constipation 5 mg, Oral, DAILY PRN, Starting on Tracy 03/24/25 at 1413, Until Discontinued, Constipation, First line therapy for constipation., Post-op bismuth subsalicylate 262 mg chewable tablet (3 sources) Bismuth Pepto-Bismol 262 MG 2 tablets as needed Orally 8 time(s) a day Not-Taking busPIRone hydrochloride 5 mg oral tablet (20 sources) Start: 03-24-2025 End: 03-24-2025 take 5 mg by mouth three times daily as needed 5 mg, Oral, 3 TIMES DAILY PRN, Starting on Tracy 03/24/25 at 1745, Until Discontinued, anxiety Start: 09-12-2017 busPIRone (BUS PAR) 5 mg tablet as needed 1 09/12/2017 Active take 1 tablet by wallace th three times daily busPIRone (BUSPAR) 5 MG tablet Take 1 tablet by mouth 3 times daily Active busPIRone HCl - 5 MG Oral Tablet USE DIRECTED Quantity: 0 Refills: 0 Ordered: 06-Mar-2022 DO Active Comment on above: as needed calcium carbonate 500 mg chewable tablet (11 sources) Start: 05-24-2019 take 500 mg by mouth every hour as needed calcium carbonate (TUMS) 500 mg chew Take 1 tablet by mouth every hour as needed (mouth or hand numbness or tingling). 0 05/24/2019 Active take 1 tablet by wallace th once daily calcium carbonate 600 MG TABS tablet Take 1 tablet by mouth daily Active End: 02-25-2024 take 1 tablet by mouth three times weekly calcium carbonate 600 mg calcium (1,500 mg) tablet Take 1 tablet (600 mg) by mouth 3 times a week. 02/25/2024 Discontinued (Therapy completed) Comment on above: Take 1 tablet by [facility] every hour as needed (mouth or hand numbness or tingling). calcium chloride 0.0014 meq/ml / potassium chloride 0.004 meq/ml / sodium chloride 0.103 meq/ml / sodium lactate 0.028 meq/ml injectable solution (1 source) Start: 03-24-20 End: 03-24-20 IntraVENous, at 125 mL/hr, CONTINUOUS, Starting on Fri03/24/25 at 0830, Pre-op (day of surgery) CANNABIDIOL, CBD, EXTRACT ORAL (1 source) CANNABIDIOL, CBD , EXTRACT ORAL Take 1 Drop by mouth as needed. 0 Active Comment on above: Take 1 Drop by mouth as needed. ceFAZolin 2000 mg injection (1 source) Cephalosporin Antibacterial Start: 03-24-20 End: 03-25-20 2,000 mg, IntraVENous, EVERY 8 HOURS, 2 doses, First dose (after last modification) on Fri03/24/25 at 2000, Last dose on Fri03/25/25 at 0400, Antimicrobial Indications: Surgical Prophylaxis, Post-op celecoxib 100 mg oral capsule (1 source) Nonsteroidal Anti-inflammatory Drug Start: 03-24-20 End: 03-24-20 100 mg, Oral, ONCE, 1 dose, On Fri03/24/25 at 0830, Administer 60 minutes prior to surgery., Pre-op (day of surgery) clopidogrel 75 mg oral tablet (3 sources) [id number] Platelet Inhibitor take 1 tablet by mouth every twenty-four hours Clopidogrel Bisulfate 75 MG 1 tablet Orally Once a day Not-Taking Co-Enzyme Q-10 200 mg (3 sources) Co-Enzyme Q-10 2 00 mg Orally Once a day Not-Taking Coenzyme Q-10 (3 sources) Coenzyme Q-10 Not-Taking diazePAM 5 mg oral tablet (1 source) Benzodiazepine Start: 03-24-20 End: 03-24-20 take 1 dose by mouth once 5 mg, Oral, ONCE, 1 dose, On Tracy 03/24/25 at 1400 Start: 03-24-2025 End: 03-24-2025 take 1 dose by mouth once 5 mg, Oral, ONCE, 1 dose, On Tracy 03/24/25 at 1400 ergocalciferol 1.25 mg oral capsule (16 sources) Provitamin D2 Compound Start: 07-23-2017 End: 02-10-2024 take 1 capsule by mouth once daily Ergocalciferol (Vitamin D2) (Vitamin D2) 50,000 unit Capsule Discontinued 1000 UNIT PO Daily July 23, 2017 12:00am February 10, 2024 11:35am Flaxseed Oil CAPS (1 source) Flaxseed Oil CAP S TAKE 1 CAPSULE Daily Quantity: 0 Refills: 0 Ordered: 06-Mar-2022 DO Active folic acid 1 mg oral tablet (16 sources) Start: 07-23-2017 End: 03-31-2021 take 1 tablet by mouth once daily Folic Acid 1 mg Tablet Discontinued 1 MG PO Daily July 23, 2017 12:00am March 31, 2021 11:13am Glucosamine Chondr Complex (3 sources) Glucosamine Fredy dr Complex Not-Taking glucosamine HCl/chondroitin crum (GLUCOSAMINE-CHONDRO ITIN ORAL) (1 source) glucosamine HCl/chondroitin crum (GLUCOSAMINE-CHONDRO ITIN ORAL) Take by mouth. 0 Active Comment on above: Take by mouth. Glucosamine-Chondroi t-Vit C-Mn (Glucosamine Chondroitin Maxstr) 500-400 mg Capsule (16 sources) Start: 07-23-2017 End: 02-10-2024 take 1 tablet by mouth once daily Glucosamine-Chondroi t-Vit C-Mn (Glucosamine Chondroitin Maxstr) 500-400 mg Capsule Discontinued 1 TAB PO Daily July 23, 2017 12:00am February 10, 2024 11:35am Start: 07-23-2017 take 1 tablet by wallace th once daily Yuzqdbokpjr-Oawkimuzl-Fjc C-Mn (Glucosam ine Chondroitin Maxstr) 500-400 mg Capsule Active 1 TAB PO Daily July 23, 2017 12:00am Halobetasol Propionate CREA (1 source) Halobetasol Prop ionate CREA USE DIRECTED Quantity: 0 Refills: 0 Ordered: 06-Mar-2022 DO Active hydrocortisone 25 mg/ml topical cream (3 sources) Corticosteroid Start: 04-05-2021 Anusol-HC 2.5 % 1 application Rectal Twice a day for 14 day(s) Mar, Not-Taking 1 ml HYDROmorphone hydrochloride 2 mg/ml cartridge (2 sources) Opioid Agonist Start: 03-24-2025 End: 03-24-2025 1 dose, Starting on Tracy 03/24/25 at 1319, Until Tracy 03/24/25 at 1332, Anais Becerra: [email or web address] override, Anais Becerra: [email or web address] override Start: 03-24-2025 End: 03-24-2025 1 mg, IntraVENous, EVERY 10 MIN PRN, 2 doses, Starting on Tracy 03/24/25 at 1317, Until Tracy 03/24/25 at 1332, Pain Severe (7-10), For Phase I. If Phase II oral narcotics have been administered in the last 60 minutes, do not administer IV narcotics unless specifically approved by provider., PACU only HYLAN G-F 20 (9 sources) Start: 05-15-2023 Synvisc One May, 48 mg ibuprofen 600 mg oral tablet (1 source) Nonsteroidal Anti-inflammatory Drug Start: 05-24-2019 take 1 tablet by mouth every six hours as needed ibuprofen (MOTRIN) 600 mg tablet Take 1 tablet by mouth every 6 hours as needed. 0 05/24/2019 Active Comment on above: Take 1 tablet by wallace th every 6 hours as needed. Lactobacillus acidophilus (1 source) Lactobacillus acidophilus (PROBIOTIC ORAL) Take by mouth. 0 Active Comment on above: Take by mouth. Levothroxine (16 sources) Start: 03-31-2021 End: 09-13-2024 take 100 ug by mouth once daily Levothroxine Discontinued 100 MCG PO Daily March 31, 2021 12:00am September 13, 2024 10:21am Start: 03-31-2021 take 100 ug by mouth once daily Levothroxine Active 100 MCG PO Daily March 31, 2021 12:00am levothyroxine sodium 0.1 mg oral tablet (20 sources) l-Thyroxine Start: 09-13-2024 End: 09-13-2024 take 100 ug by mouth every other day Levothyroxine Discontinued 100 MCG PO .qod 90 September 13, 2024 12:09pm September 13, 2024 12:10pm Start: 09-13-2024 End: 09-13-2024 take 100 ug by mouth once daily Levothyroxine Disconti nued 100 MCG PO Daily September 13, 2024 10:20am September 13, 2024 12:10pm Start: 09-13-2024 End: 09-16-2024 take 1 capsule by mouth every other day Levothyroxine 100 mcg capsule Discontinued 100 MCG PO .qod 90 September 13, 2024 1:00am September 16, 2024 4:22pm Start: 05-05-2024 End: 07-12-2024 take 1 tablet by mouth every other day Levothyroxine 88 mcg tablet Active 88 MCG PO .QOD 50 July 12, 2024 4:32pm Start: 02-10-2024 End: 05-05-2024 take 1 capsule by mouth once daily Levothyroxine 88 mcg capsule Discontinued 88 MCG PO Daily 50 90 May 03, 2024 10:29am May 05, 2024 1:21pm Start: 02-03-2023 take 1 tablet by wallace th once daily in the morning Levothyroxine Sodium 88 MCG 1 tablet in the morning on an empty stomach Orally Once a day Jan, Active Start: 06-29-2022 take 1 tablet by wallace th once daily levothyroxine (SYNTHROID) 100 MCG tablet Take 1 tablet by mouth Daily 06/29/2022 Active Start: 06-29-2022 End: 02-10-2025 take 1 tablet by mouth every other day Levothyroxine 100 mcg tablet Discontinued 100 MCG PO .qod 90 September 16, 2024 1:00February 10, 2025 4:10pm Start: 12-29-2019 take 1 tablet by wallace th once daily levothyroxine (SYNTHROID) 88 mcg tablet Take 1 tablet by mouth once daily. 90 tablet 3 12/29/2019 Active Start: 07-27-2019 levothyroxine (SYNTHROID) 112 MCG tablet 88 mcg 0 07/27/2019 Active Start: 07-27-2019 take 1 tablet by wallace th once daily levothyroxine (SYNTHROID) 112 MCG tablet TK 1 T PO QD 0 07/27/2019 Active take 1 tablet by wallace th once daily in the morning Levothyroxine Sodium 100 MCG 1 tablet in the morning on an empty stomach Orally Once a day for 90 days Active take 1 tablet by wallace th once daily in the morning Levothyroxine Sodium 88 MCG 1 tablet in the morning on an empty stomach Orally Once a day Active Comment on above: Take 1 tablet by wallace th once daily. magnesium citrate 58.2 mg/ml oral solution (16 sources) Start: 03-31-20 End: 05-11-20 take 1 mL by mouth once as needed for constipation Magnesium Citrate Solution Discontinued 120 ML PO Once as needed for Constipation 120 March 31, 2021 12:00am May 11, 2022 12:37am magnesium oxide 400 mg oral tablet (3 sources) Start: 03-25-20 take 400 mg by mouth once daily 400 mg, Oral, DAILY, First dose on Fri03/25/25 at 0900, Until Discontinued methIMAzole 5 mg oral tablet (16 sources) Thyroid Hormone Synthesis Inhibitor Start: 07-23-20 End: 03-31-20 take 3 tablets by mouth once daily Methimazole 5 mg Tablet Discontinued 15 MG PO Daily July 23, 2017 12:00am March 31, 2021 11:14am Start: 07-23-2017 End: 03-31-2021 take 15 mg by mouth once daily Methimazole Discontinue d 15 MG PO Daily July 23, 2017 12:00am March 31, 2021 11:14am metroNIDAZOLE 500 mg oral tablet (20 sources) Nitroimidazole Antimicrobial Start: 04-22-2022 End: 02-25-2024 take 1 tablet by mouth twice daily Metronidazole 500 mg tablet Discontinued 500 MG PO Twice daily May 11, 2022 12:00am February 10, 2024 11:36am Multi Vitamin Oral Tablet (1 source) take 1 tablet by mouth once daily Multi Vitamin Oral Tablet TAKE 1 TABLET DAILY. Quantity: 0 Refills: 0 Ordered: 06-Mar-2022 DO Active MULTIPLE VITAMIN PO (2 sources) End: 03-24-2025 MULTIPLE VITAMIN PO Multivitamin preparation (18 sources) 03/24/2025 Discontinued (LIST CLEANUP) MULTIPLE VITAMIN PO Multivitamin preparation (18 sources) 0 Active MULTIVITAMIN TAB (1 source) Start: 07-31-2006 MULTIVITAMIN TAB Take one(1) tablet daily. 0 07/31/2006 Active Comment on above: Take one(1) tablet d aily. omeprazole 20 mg delayed release oral tablet (16 sources) Proton Pump Inhibitor Start: 07-23-2017 End: 03-31-2021 take 1 tablet by mouth once daily as needed Omeprazole 20 mg Tablet,Delayed Release (Dr/Ec) Discontinued 20 MG PO Daily as needed for Indigestion July 23, 2017 12:00am March 31, 2021 11:15am ondansetron 4 mg disintegrating oral tablet (19 sources) Serotonin-3 Receptor Antagonist Start: 05-11-2022 End: 02-10-2024 take 1 tablet by mouth every eight hours as needed for nausea and vomiting Ondansetron 4 mg tablet,disintegrat ing Discontinued 4 MG PO Q8H as needed for nausea and vomiting 6 2 May 11, 2022 12:00am February 10, 2024 11:36am Ondansetron HCl PRN Not-Taking pantoprazole 40 mg delayed release oral tablet (3 sources) Proton Pump Inhibitor take 1 tablet by mouth every twenty-four hours Pantoprazole Sodium 40 MG 1 tablet Orally Once a day Not-Taking Probiotic - (3 sources) Probiotic - Oral ly Not-Taking Probiotic CAPS (1 source) Probiotic CAPS TAKE 1 CAPSULE Daily Quantity: 0 Refills: 0 Ordered: 06-Mar-2022 DO Active regadenoson (Lexiscan) injection 0.4 mg (1 source) Start: End: 0.4 mg, intravenous, Once, On Tracy 03/17/25 at 0830, For 1 dose sucralfate 1000 mg oral tablet (3 sources) Aluminum Complex Start: take 1 tablet by mouth every eight hours Sucralfate 1 GM 1 TABLET Orally THREE TIMES A DAY for 30 days Apr, Not-Taking sulfamethoxazole 800 mg / trimethoprim 160 mg oral tablet (4 sources) Dihydrofolate Reductase Inhibitor Antibacterial, Sulfonamide Antimicrobial End: 025 sulfamethoxazole-t rimethoprim (BACTRIM DS;SEPTRA DS) 800-160 MG per tablet Take by mouth 03/24/2025 Discontinued (LIST CLEANUP) take 1 tablet by mouth every twe lve hours Bactrim DS 800-160 MG 1 tablet Orally Twice a day for 7 days Active Tc-99m tetrofosmin (Myoview) injection 10 millicurie (1 source) Start: 03-17-2025 End: 03-17-2025 10 millicurie, intravenous, Once in imaging, Starting on Tracy 03/17/25 at 0807, For 1 dose, Administer 45 to 90 minutes prior to imaging unless otherwise indicated. Tc-99m tetrofosmin (Myoview) injection 30 millicurie (1 source) Start: 03-17-2025 End: 03-17-2025 30 millicurie, intravenous, Once in imaging, Starting on Tracy 03/17/25 at 0916, For 1 dose, Administer 45 to 90 minutes prior to imaging unless otherwise indicated. thiamine 100 mg oral tablet (1 source) take 1 tablet by mouth once daily thiamine (VITAMIN B-1) 100 mg tablet Take 100 mg by mouth once daily. 0 Active Comment on above: Take 100 mg by mouth once daily. ticagrelor 90 mg oral tablet (16 sources) Start: 07-23-2017 End: 03-31-2021 take 1 tablet by mouth twice daily Ticagrelor (Brilinta) 90 mg Tablet Discontinued 90 MG PO Twice daily July 23, 2017 12:00am March 31, 2021 11:15am triamcinolone acetonide 40 mg/ml injectable suspension (12 sources) Corticosteroid Start: 02-24-2023 Kenalog-40 February, 40 mg Start: 02-24-2023 XyliMelts 550 MG Mouth/Throa t Disk (1 source) XyliMelts 550 MG Mouth/Throat Disk Take 1 daily Quantity: 0 Refills: 0 Ordered: 06-Mar-2022 DO Active Problems Active Problems Problem Classification Problem Date Documented Date Episodic/Chronic Abdominal pain (20 sources) Right lower quadrant pain; Translations: [Right lower quadrant pain] Onset: 6 Resolved: 2 Episodic Comment on above: Problem List clean-u p per request of Phys. EHR Cmte Acute myocardial infarction (18 sources) Myocardial infarction; Translations: [Acute myocardial infarction of unspecified site, episode of care unspecified] Onset: 3 02-25-2024 Chronic Allergic reactions (2 sources) Allergic contact dermatitis; Translations: [Allergic contact dermatitis, unspecified cause] Episodic Anxiety disorders (2 sources) Anxiety disorder; Translations: [Other specified anxiety disorders] Chronic Cancer of uterus (20 sources) Adenocarcinoma of endometrium; Translations: [Malignant neoplasm of endometrium of corpus uteri ] Onset: 8 Resolved: 8 07-23-2018 Chronic Cancer of uterus (4 sources) History of malignant neoplasm of uterine body; Translations: [Personal history of malignant neoplasm of other parts of uterus] Episodic Cardiac and circulatory congenital anomalies (13 sources) Patent foramen ovale; Translations: [Ostium secundum type atrial septal defect] Onset: 3 02-25-2024 Chronic Coagulation and hemorrhagic disorders (11 sources) Hypercoagulability state; Translations: [Other primary thrombophilia] Onset: 8 03-23-2018 Chronic Complications of surgical procedures or medical care (3 sources) Postprocedural hypothyroidism; Translations: [Postoperative hypothyroidism] Onset: 2 Chronic Coronary atherosclerosis and other heart disease (20 sources) Coronary arteriosclerosis; Translations: [Atherosclerotic heart disease of [place] coronary artery without angina pectoris] Onset: 7 03-23-2018 Chronic Comment on above: Problem List clean-u p per request of Phys. EHR Cmte Coronary atherosclerosis and other heart disease (5 sources) Presence of coronary angioplasty implant and graft; Translations: [Coronary angioplasty status] Onset: 2 Episodic Disorders of lipid metabolism (17 sources) Hyperlipidemia; Translations: [Other and unspecified hyperlipidemia] Onset: 3 02-25-2024 Chronic Diverticulosis and diverticulitis (16 sources) Diverticulosis of sigmoid colon; Translations: [Diverticulosis of large intestine without perforation or abscess without bleeding] Chronic Esophageal disorders (1 source) Gastro-esophageal reflux disease without esophagitis; Translations: [GERD WITHOUT ESOPHAGITIS] Onset: 2 Chronic Essential hypertension (20 sources) Essential hypertension; Translations: [Essential (primary) hypertension] Onset: 7 06-02-2018 Chronic Genitourinary symptoms and ill-defined conditions (7 sources) Finding of frequency of urination; Translations: [Frequency of micturition] Onset: 8 Episodic Headache; including migraine (2 sources) Headache; Translations: [Headache, unspecified] Episodic Hemorrhoids (18 sources) Hemorrhoids; Translations: [Unspecified hemorrhoids] Episodic Hypertension with complications and secondary hypertension (2 sources) Hypertensive urgency ; Translations: [Hypertensive urgency] Chronic Immunizations and screening for infectious disease (3 sources) Vaccination given; Translations: [Encounter for immunization] Onset: 5 Episodic Inflammatory diseases of female pelvic organs (1 source) Acute vaginitis; Translations: [Acute vaginitis] 05-12-2024 Episodic Nausea and vomiting (18 sources) Nausea; Translations: [Nausea] Episodic Nonspecific chest pain (16 sources) Chest pain; Translations: [Chest pain, unspecified] 07-23-2017 Episodic Comment on above: Problem List clean-u p per request of Phys. EHR Cmte Nutritional deficiencies (2 sources) Iron deficiency; Translations: [Iron deficiency] Episodic Occlusion or stenosis of precerebral arteries (15 sources) Bilateral stenosis of carotid arteries; Translations: [Occlusion and stenosis of carotid artery without mention of cerebral infarction] Onset: 3 02-25-2024 Chronic Osteoarthritis (20 sources) Osteoarthritis of right knee joint; Translations: [Unilateral primary osteoarthritis, right knee] Onset: 4 Chronic Other acquired deformities (13 sources) Scoliosis, unspecified; Translations: [Scoliosis [and kyphoscoliosis], idiopathic] Onset: 2 Chronic Other acquired deformities (14 sources) Scoliosis deformity of spine; Translations: [Scoliosis, unspecified] 02-10-2024 Chronic Other acquired deformities (18 sources) Acquired spondylolisthesis; Translations: [Spondylolisthesis, site unspecified] Episodic Other bone disease and musculoskeletal deformities (18 sources) Idiopathic scoliosis AND/OR kyphoscoliosis; Translations: [Other idiopathic scoliosis, site unspecified] Chronic Other bone disease and musculoskeletal deformities (1 source) Other idiopathic scoliosis, site unspecified Chronic Other circulatory disease (2 sources) Elevated blood-pressure reading without diagnosis of hypertension; Translations: [Elevated blood-pressure reading, without diagnosis of hypertension] Episodic Other connective tissue disease (4 sources) History of total knee arthroplasty; Translations: [Presence of right artificial knee joint] Onset: 5 03-24-2025 Chronic Other connective tissue disease (1 source) Presence of right artificial knee joint; Translations: [Presence of right artificial knee joint] Onset: 5 Chronic Other connective tissue disease (1 source) Abnormal posture; Translations: [ABNORMAL POSTURE] Onset: 2 Episodic Other gastrointestinal disorders (19 sources) Irritable bowel syndrome with diarrhea; Translations: [Irritable bowel syndrome with diarrhea] 07-14-2024 Chronic Other gastrointestinal disorders (20 sources) Irritable bowel syndrome; Translations: [Mixed irritable bowel syndrome] Onset: 8 Chronic Other gastrointestinal disorders (1 source) Mixed irritable bowel syndrome Onset: 2 Resolved: 2 Chronic Other gastrointestinal disorders (1 source) Irritable bowel syndrome without diarrhea; Translations: [IRRITABLE BOWEL SYND W/O DIARRHEA] Onset: 2 Chronic Other gastrointestinal disorders (20 sources) Diarrhea; Translations: [Diarrhea, unspecified] Onset: 6 Episodic Other gastrointestinal disorders (18 sources) Constipation alternates with diarrhea; Translations: [Other specified symptoms and signs involving the digestive system and abdomen] Episodic Other gastrointestinal disorders (15 sources) Constipation; Translations: [Constipation, unspecified] Episodic Other gastrointestinal disorders (1 source) Constipation, unspecified Episodic Other injuries and conditions due to external causes (2 sources) History of fall; Translations: [History of falling] Episodic Other nervous system disorders (9 sources) Chronic pain; Translations: [Other chronic pain] 03-01-2024 Chronic Other nervous system disorders (18 sources) Other chronic pain; Translations: [Other chronic pain] 03-01-2024 Chronic Other nervous system disorders (1 source) Other acute postprocedural pain; Translations: [Other acute postprocedural pain] Onset: 8 Episodic Other nervous system disorders (10 sources) Postoperative pain ; Translations: [Other acute postprocedural pain] 06-02-2018 Episodic Other non-traumatic joint disorders (20 sources) Pain in right knee; Translations: [Right knee pain] Episodic Other nutritional; endocrine; and metabolic disorders (18 sources) Body mass index 30+ - obesity; Translations: [Body mass index (BMI) 30.0-30.9, adult] Chronic Other nutritional; endocrine; and metabolic disorders (20 sources) Body mass index 25-29 - overweight; Translations: [Body mass index (BMI) 29.0-29.9, adult] Episodic Other nutritional; endocrine; and metabolic disorders (2 sources) Body mass index (BMI) 29.0-29.9, adult; Translations: [Body mass index (BMI) 29.0-29.9, adult] Onset: 4 Episodic Other screening for suspected conditions (not mental disorders or infectious disease) (13 sources) Patient encounter status; Translations: [Encounter for screening for malignant neoplasm of other genitourinary organs] Onset: 2 Episodic Other upper respiratory disease (2 sources) Seasonal allergic rhinitis; Translations: [Other seasonal allergic rhinitis] Chronic Peripheral and visceral atherosclerosis (13 sources) Vascular insufficiency of intestine; Translations: [Vascular disorder of intestine, unspecified] Onset: 8 03-23-2018 Chronic Pneumonia (except that caused by tuberculosis or sexually transmitted disease) (15 sources) Pneumonia; Translations: [Pneumonia, unspecified organism] 07-10-2023 Episodic Residual codes; unclassified (1 source) Family history of malignant neoplasm of other organs or systems; Translations: [FAM HX MALIG NEOPLASM OTH ORGN/SYS] Onset: 2 Episodic Residual codes; unclassified (1 source) Other specified personal risk factors, not elsewhere classified; Translations: [Other specified personal risk factors, not elsewhere classified] Onset: 5 Episodic Screening and history of mental health and substance abuse codes (13 sources) Ex-smoker; Translations: [Personal history of tobacco use] Onset: 3 02-25-2024 Episodic Spondylosis; intervertebral disc disorders; other back problems (19 sources) Inflammation of sacroiliac joint; Translations: [Sacroiliitis, not elsewhere classified] Chronic Spondylosis; intervertebral disc disorders; other back problems (6 sources) Low back pain; Translations: [Low back pain, unspecified] Onset: 4 Episodic Sprains and strains (2 sources) Sprain of unspecified site of right knee, initial encounter Episodic Thyroid disorders (20 sources) Multinodular goiter; Translations: [Hyperthyroidism] Onset: 7 06-30-2017 Chronic Transient cerebral ischemia (13 sources) Transient cerebral ischemia; Translations: [Unspecified transient cerebral ischemia] Onset: 3 02-25-2024 Chronic Unclassified (1 source) Acquired absence of both cervix and uterus; Translations: [Acquired absence of both cervix and uterus] Onset: 8 Episodic Unclassified (3 sources) Patient encounter status; Translations: [Encounter for screening for malignant neoplasm of other genitourinary organs] 02-24-2025 Unclassified (1 source) LOW BACK PAIN, UNSPECIFIED; Translations: [LOW BACK PAIN, UNSPECIFIED] Onset: 2 Unclassified (2 sources) Abnormal result; Translations: [Other abnormal clinical finding] Onset: 7 Urinary tract infections (1 source) Acute cystitis with hematuria Episodic Past or Other Problems Problem Classification Problem Date Documented Date Episodic/Chronic Abdominal hernia (1 source) Diaphragmatic hernia without obstruction or gangrene; Translations: [DIAPH HERNIA W/O OBST/GANGRENE] Onset: 05-11-2022 Episodic Conditions associated with dizziness or vertigo (11 sources) Dizziness; Translations: [Dizziness and giddiness] Onset: 02-11-2014 06-07-2023 Episodic Other aftercare (1 source) USP (current) use of aspirin; Translations: [CASTING CLEANER CURRENT USE OF ASPIRIN] Onset: 05-21-2022 Episodic Other aftercare (1 source) Other sales representative business courses (current) drug therapy; Translations: [OTH CASTING CLEANER CURRENT DRUG THERAPY] Onset: 05-21-2022 Episodic Other nutritional; endocrine; and metabolic disorders (9 sources) Obesity; Translations: [Obesity, unspecified] Onset: 06-07-2023 Resolved: 02-25-2024 02-25-2024 Chronic Other nutritional; endocrine; and metabolic disorders (10 sources) Overweight in adulthood with body mass index of 25 or more but less than 30; Translations: [Body mass index (BMI) 29.0-29.9, adult] Onset: 02-25-2024 02-25-2024 Episodic Other skin disorders (2 sources) Atrophoderma; Translations: [Unspecified hypertrophic and atrophic condition of skin] Onset: 05-25-2015 Episodic Residual codes; unclassified (2 sources) H/O: hysterectomy; Translations: [History of robot-assisted laparoscopic hysterectomy] Onset: 06-02-2018 Resolved: 01-04-2020 06-02-2018 Episodic Residual codes; unclassified (1 source) Acquired absence of other specified parts of digestive tract; Translations: [ACQ ABSENCE OTH PART DIGESTV TRACT] Onset: 05-21-2022 Episodic Unclassified (14 sources) Onset: 07-23-2021 Resolved: 02-25-2024 02-25-2024 Results Test Name Value Interpretation Reference Range Facility HPV DNA High Riskon 05-17-20 HPV Interp [facility] Comment on above: Result Comment: This test amplifies and detects DNA [...] abuse or for other forensic purposes. Performed By: #### H PVH #### [facility] [address] [place] [address] Business Center Manager: Mario Doty MD HPV Type 16 Not detected [facility] Comment on above: Performed By: #### H PVH #### [facility] [address] [place] [address] Business Center Manager: Mario Doty MD HPV Type 18 Not detected [facility] Comment on above: Performed By: #### H PVH #### [facility] [address] [place] [address] Business Center Manager: Mario Doty MD Other High Risk HPV Not detected Normal [facility] Comment on above: Performed By: #### H PVH #### [facility] [address] [place] [address] Business Center Manager: Mario Doty MD HPV Sample .THIN PREP Normal [facility] Comment on above: Performed By: #### H PVH #### [facility] [address] [place], [place] [id number] Business Center Manager: Mario Doty MD Source .VAGINAL SPECIMEN Normal [facility] Comment on above: Performed By: #### H PVH #### [facility] [address] [place], [place] [id number] Business Center Manager: Mario Doty MD Cytology Reporton 05-16-2025 Cytology report Cyto stain.thin prep Doc (Cvx/Vag) (NOTE) Path Number: [id number] DIAGNOSIS Imaged ThinPrep Pap - Vaginal (1 monolayer slide): Specimen Adequacy: Satisfactory for evaluation. Descriptive Diagnosis: Negative for intraepithelial lesion or malignancy. Comments: Specimen was screened at [facility], [address] [place] [place] [id number] [employer] Screener: YONATHAN Electronically Signed Out MIGUEL [...] or for other forensic purposes. Performed at [address] [address] ([phone] Source of Specimen: A: Imaged ThinPrep Pap - Vaginal (1 monolayer slide) HPV Reflex?.................. ....HPV Regardless Clinical History Hysterectomy Z11.51 Encounter for screening for HPV Processing Lab: [address] [address] Interpretation performed at [facility], [address] [place] [address] This Pap Test has been evaluated with [...] GYNECOLOGIC CYTOLOGY REPORT Patient Name: GARTH OLGUIN [facility] Rec: [id number] [facility] ANATOMIC PATHOLOGY [address] [place] [address]. [place], [place] [address] Normal [facility] Basic Metabolic Panelon 03-13 Calcium [Mass/Vol] 7.7 mg/dL Low 8.4-10.2 [facility] Comment on above: Performed By: #### B MP #### [address] [address] Ph. [phone] Chloride [Moles/Vol] 100 mmol/L Normal 98-107 [facility] Comment on above: Performed By: #### B MP #### [address] [address] Ph. [phone] CO2 [Moles/Vol] 24 mmol/L Normal 22-32 [facility] Comment on above: Performed By: #### B MP #### [address] [address] Ph. [phone] Creatinine [Mass/Vol] 0.64 mg/dL Normal 0.52-1.04 [facility] Comment on above: Performed By: #### B MP #### [place] [id number] Ph. [phone] GFR/1.73 sq M.predicted among non-blacks MDRD (S/P/Bld) [Vol rate/Area] 93 mL/min/{1.73_m2} Normal >60 [facility] Comment on above: Result Comment: GFR calculated using CKD-EPI (2020) formula.\X0D0A\Stage 1 Kidney damage (e.g., protein in the urine) with normal GFR >=90\X0D0A\Stage 2 Kidney damage with mild decrease in GFR 60-89\X0D0A\Stage 3a Moderate decrease in GFR 45-59\X0D0A\Stage 3b Moderate decrease in GFR 30-44\X0D0A\Stage 4 Severe reduction in GFR 15-29\X0D0A\Stage 5 Kidney failure <15 Performed By: #### B MP #### [address] [address] Ph. [phone] Glucose [Mass/Vol] 97 mg/dL Normal 65-100 [facility] Comment on above: Performed By: #### B MP #### [address] [address] Ph. [phone] Potassium [Moles/Vol] 3.5 mmol/L Low 3.6-5.0 [facility] Comment on above: Performed By: #### B MP #### [address] [address] Ph. [phone] Sodium [Moles/Vol] 129 mmol/L Low 135-145 [facility] Comment on above: Performed By: #### B MP #### [place] [address] Ph. [phone] Urea nitrogen [Mass/Vol] 7 mg/dL Normal 7-17 [facility] Comment on above: Performed By: #### B MP #### [place] [address] Ph. [phone] Hemoglobin and Hematocriton 03-26-2025 Hematocrit (Bld) [Volume fraction] 24.5 % Low 36.0 - 47.0 % [facility] Hemoglobin (Bld) [Mass/Vol] 8.3 g/dL Low 12.0 - 16.0 g/dL [facility] Interpretation and review of laboratory results Abnormal [facility] Hematocrit (Bld) [Volume fraction] 24.5 % Low 36.0-47.0 [facility] Comment on above: Performed By: #### H H #### [place] [address] Ph. [phone] Hemoglobin (Bld) [Mass/Vol] 8.3 g/dL Low 12.0-16.0 [facility] Comment on above: Performed By: #### H H #### [place] [address] Ph. [phone] Basic Metabolic Panelon 03-13 Calcium [Mass/Vol] 7.8 mg/dL Low 8.4 - 10. 2 mg/dL [facility] Chloride [Moles/Vol] 102 mmol/L [facility] CO2 [Moles/Vol] 22 mmol/L [facility] Creatinine [Mass/Vol] 0.70 mg/dL 0.52 - 1.04 mg/dL [facility] Est, Glom Filt Rate 91 - PINF [facility] Comment on above: GFR calculated using CKD-EPI (2020) formula. Stage 1 Kidney damage (e.g., protein in the urine) with normal GFR >=90 Stage 2 Kidney damage with mild decrease in GFR 60-89 Stage 3a Moderate decrease in GFR 45-59 Stage 3b Moderate decrease in GFR 30-44 Stage 4 Severe reduction in GFR 15-29 Stage 5 Kidney failure <15 Glucose [Mass/Vol] 93 mg/dL 65 - 100 mg/dL [facility] Interpretation and review of laboratory results Abnormal [facility] Potassium [Moles/Vol] 3.8 mmol/L [facility] Sodium [Moles/Vol] 130 mmol/L Low [facility] Urea nitrogen (BldV) [Mass/Vol] 13 mg/dL 7 - 17 mg/dL [facility] Calcium [Mass/Vol] 7.8 mg/dL Low 8.4-10.2 [facility] Comment on above: Performed By: #### B MP #### [place] [address] Ph. [phone] Chloride [Moles/Vol] 102 mmol/L Normal 98-107 [facility] Comment on above: Performed By: #### B MP #### [address] [address] Ph. [phone] CO2 [Moles/Vol] 22 mmol/L Normal 22-32 [facility] Comment on above: Performed By: #### B MP #### [address] [address] Ph. [phone] Creatinine [Mass/Vol] 0.70 mg/dL Normal 0.52-1.04 [facility] Comment on above: Performed By: #### B MP #### [place] [address] Ph. [phone] GFR/1.73 sq M.predicted among non-blacks MDRD (S/P/Bld) [Vol rate/Area] 91 mL/min/{1.73_m2} Normal >60 [facility] Comment on above: Result Comment: GFR calculated using CKD-EPI (2020) formula.\X0D0A\Stage 1 Kidney damage (e.g., protein in the urine) with normal GFR >=90\X0D0A\Stage 2 Kidney damage with mild decrease in GFR 60-89\X0D0A\Stage 3a Moderate decrease in GFR 45-59\X0D0A\Stage 3b Moderate decrease in GFR 30-44\X0D0A\Stage 4 Severe reduction in GFR 15-29\X0D0A\Stage 5 Kidney failure <15 Performed By: #### B MP #### [address] [address] Ph. [phone] Glucose [Mass/Vol] 93 mg/dL Normal 65-100 [facility] Comment on above: Performed By: #### B MP #### [address] [address] Ph. [phone] Potassium [Moles/Vol] 3.8 mmol/L Normal 3.6-5.0 [facility] Comment on above: Performed By: #### B MP #### [address] [address] Ph. [phone] Sodium [Moles/Vol] 130 mmol/L Low 135-145 [facility] Comment on above: Performed By: #### B MP #### [address] [address] Ph. [phone] Urea nitrogen [Mass/Vol] 13 mg/dL Normal 7-17 [facility] Comment on above: Performed By: #### B MP #### [address] [address] Ph. [phone] Basic Metabolic Panel w/ Ref sushma Mgon 03-25-2025 Calcium [Mass/Vol] 7.8 mg/dL Low 8.4-10.2 [facility] Comment on above: Order Comment: Resul t corrected due to result entered in wrong spot.\X0D0A\X0D0A\ 03/25/2025 at 4:03 PM by JIMENEZ REYNOLDS. Performed By: #### B MPWR #### [address] [address] Ph. [phone] Chloride [Moles/Vol] 98 mmol/L Normal 98-107 [facility] Comment on above: Order Comment: Resul t corrected due to result entered in wrong spot.\X0D0A\X0D0A\ 03/25/2025 at 4:03 PM by JIMENEZ REYNOLDS. Performed By: #### B MPWR #### [place] [address] Ph. [phone] CO2 [Moles/Vol] 24 mmol/L Normal 22-32 [facility] Comment on above: Order Comment: Resul t corrected due to result entered in wrong spot.\X0D0A\X0D0A\ 03/25/2025 at 4:03 PM by JIMENEZ REYNOLDS. Performed By: #### B MPWR #### [place] [address] Ph. [phone] Creatinine [Mass/Vol] 0.73 mg/dL Normal 0.52-1.04 [facility] Comment on above: Order Comment: Resul t corrected due to result entered in wrong spot.\X0D0A\X0D0A\ 03/25/2025 at 4:03 PM by JIMENEZ REYNOLDS. Performed By: #### B MPWR #### [place] [address] Ph. [phone] GFR/1.73 sq M.predicted among non-blacks MDRD (S/P/Bld) [Vol rate/Area] 87 mL/min/{1.73_m2} Normal >60 [facility] Comment on above: Order Comment: Resul t corrected due to result entered in wrong spot.\X0D0A\X0D0A\ 03/25/2025 at 4:03 PM by JIMENEZ REYNOLDS. Result Comment: GFR calculated using CKD-EPI (2020) formula.\X0D0A\Stage 1 Kidney damage (e.g., protein in the urine) with normal GFR >=90\X0D0A\Stage 2 Kidney damage with mild decrease in GFR 60-89\X0D0A\Stage 3a Moderate decrease in GFR 45-59\X0D0A\Stage 3b Moderate decrease in GFR 30-44\X0D0A\Stage 4 Severe reduction in GFR 15-29\X0D0A\Stage 5 Kidney failure <15 Performed By: #### B MPWR #### [place] [id number] Ph. [phone] Glucose [Mass/Vol] 97 mg/dL Normal 65-100 [facility] Comment on above: Order Comment: Resul t corrected due to result entered in wrong spot.\X0D0A\X0D0A\ 03/25/2025 at 4:03 PM by JIMENEZ REYNOLDS. Performed By: #### B MPWR #### [place] [address] Ph. [phone] Potassium [Moles/Vol] 3.8 mmol/L Normal 3.6-5.0 [facility] Comment on above: Order Comment: Resul t corrected due to result entered in wrong spot.\X0D0A\X0D0A\ 03/25/2025 at 4:03 PM by JIMENEZ REYNOLDS. Performed By: #### B MPWR #### [place] [address] Ph. [phone] Sodium [Moles/Vol] 126 mmol/L Low 135-145 [facility] Comment on above: Order Comment: Resul t corrected due to result entered in wrong spot.\X0D0A\X0D0A\ 03/25/2025 at 4:03 PM by JIMENEZ REYNOLDS. Result Comment: Resu lt amended from (126) (03/25/2025 3:53 PM) to () by CD. Result amended from (Not Reported) (03/25/2025 3:53 PM) to (126) by CD. Performed By: #### B MPWR #### [address] [address] Ph. [phone] Urea nitrogen [Mass/Vol] 12 mg/dL Normal 7-17 [facility] Comment on above: Order Comment: Resul t corrected due to result entered in wrong spot.\X0D0A\X0D0A\ 03/25/2025 at 4:03 PM by JIMENEZ REYNOLDS. Performed By: #### B MPWR #### [address] [address] Ph. [phone] Basic Metabolic Panel w/ Ref sushma to MGon 03-25-2025 Calcium [Mass/Vol] 7.8 mg/dL Low 8.4 - 10. 2 mg/dL [facility] Chloride [Moles/Vol] 98 mmol/L [facility] CO2 [Moles/Vol] 24 mmol/L [facility] Creatinine [Mass/Vol] 0.73 mg/dL 0.52 - 1.04 mg/dL [facility] Est, Glom Filt Rate 87 - PINF [facility] Comment on above: GFR calculated using CKD-EPI (2020) formula. Stage 1 Kidney damage (e.g., protein in the urine) with normal GFR >=90 Stage 2 Kidney damage with mild decrease in GFR 60-89 Stage 3a Moderate decrease in GFR 45-59 Stage 3b Moderate decrease in GFR 30-44 Stage 4 Severe reduction in GFR 15-29 Stage 5 Kidney failure <15 Glucose [Mass/Vol] 97 mg/dL 65 - 100 mg/dL [facility] Interpretation and review of laboratory results Abnormal [facility] Potassium [Moles/Vol] 3.8 mmol/L [facility] Sodium [Moles/Vol] 126 mmol/L Low [facility] Comment on above: Result amended from (126) (03/25/2025 3:53 PM) to () by CD. Result amended from (Not Reported) (03/25/2025 3:53 PM) to (126) by CD. Urea nitrogen (BldV) [Mass/Vol] 12 mg/dL 7 - 17 mg/dL [facility] Result corrected due to result entered in wrong spot. 03/25/2025 at 4:03 PM by JIMENEZ REYNOLDS. [facility] Hemoglobin and Hematocriton 03-25-2025 Hematocrit (Bld) [Volume fraction] 26.8 % Low 36.0 - 47.0 % [facility] Hemoglobin (Bld) [Mass/Vol] 9.1 g/dL Low 12.0 - 16.0 g/dL [facility] Interpretation and review of laboratory results Abnormal [facility] Hematocrit (Bld) [Volume fraction] 26.8 % Low 36.0-47.0 [facility] Comment on above: Performed By: #### H H #### [address] [phone] Hemoglobin (Bld) [Mass/Vol] 9.1 g/dL Low 12.0-16.0 [facility] Comment on above: Performed By: #### H H #### [place] [address] Ph. [phone] Sodiumon 03-25-2025 Interpretation and review of laboratory results Abnormal [facility] Sodium [Moles/Vol] 126 mmol/L Low [facility] Sodium [Moles/Vol] 126 mmol/L Low 135-145 [facility] Comment on above: Performed By: #### N A #### [address] [phone] US DUP LOWER EXTREMITY RIGHT VENon 03-25-2025 US DUP LOWER EXTREMITY RIGHT ELVIRA RADRPT EXAMINATION: US DUP LOWER EXTREMITY RIGHT ELVIRA, [...] of bilateral lower extremity deep venous thrombosis. Interpreted by: Stevie Oneal MD Signed by: Stevie Oneal MD 03/25/25 Final result Normal [facility] US Lower extremity vein - ri ton 03-25-2025 No evidence of bilat eral lower extremity deep venous thrombosis. [facility] EXAMINATION: US DUP LOWER EXTREMITY RIGHT ELVIRA, [...] Report electronically signed by: Dr. Stevie Oneal [facility] Stevie Oneal M D - 03/25/2025 EXAMINATION: US DUP LOWER EXTREMITY [...] of bilateral lower extremity deep venous thrombosis. [facility] Work Phone: Radiology Study observation (narrative) [facility] Work Phone: US Lower extremity vein - ri ghtOrdered By: Stevie Oneal on 03-25-2025 [facility] Work Phone: Urinalysis with Reflex to Cu ltureon 03-25-2025 BACTERIA, URINE None Seen [facility] Bilirubin, Urine Negative Negative [facility] Blood, Urine Negative Negative [facility] Clarity, UA Clear [facility] Color, UA Yellow [facility] Culture Indicated? No [facility] Glucose, Ur Negative Negative mg/dL [facility] Interpretation and review of laboratory results Abnormal [facility] Ketones Ql (U) Trace Abnormal Negative mg/dL [facility] Leukocyte esterase Test strip Ql (U) Negative Negative [facility] MUCUS, URINE None Seen [facility] Nitrate, UA Negative Negative [facility] pH (U) 6.0 [pH] 5.0 - 7.0 [facility] Protein, Urine Negative Negative mg/dL [facility] RBC, UA Rare #/HPF [facility] Specific [place], UA 1.015 1.005 - 1.030 [facility] Squam Epithel, UA Few #/LPF [facility] Urobilinogen, Urine 0.2 E.U./dL NINF [facility] WBC, UA 0-2 #/HPF [facility] Urinalysis, Complete reflex to cultureon 03-25-2025 BACT None Seen Normal [facility] Comment on above: Performed By: #### U COMP/WRCX #### [place] [address] Ph. [phone] CULTIND No Normal [facility] Comment on above: Performed By: #### U COMP/WRCX #### [place] [address] Ph. [phone] MUCS None Seen Normal [facility] Comment on above: Performed By: #### U COMP/WRCX #### [address] [address] Ph. [phone] SQEPI Few Normal [facility] Comment on above: Performed By: #### U COMP/WRCX #### [address] [address] Ph. [phone] UBIL Negative Normal Negative [facility] Comment on above: Performed By: #### U COMP/WRCX #### [address] [address] Ph. [phone] UBLO Negative Normal Negative [facility] Comment on above: Performed By: #### U COMP/WRCX #### [address] [address] Ph. [phone] UCLAR Clear Normal [facility] Comment on above: Performed By: #### U COMP/WRCX #### [address] [address] Ph. [phone] UCOL Yellow Normal [facility] Comment on above: Performed By: #### U COMP/WRCX #### [address] [address] Ph. [phone] UGLU Negative Normal Negative [facility] Comment on above: Performed By: #### U COMP/WRCX #### [address] [address] Ph. [phone] UKET Trace Abnormal Negative [facility] Comment on above: Performed By: #### U COMP/WRCX #### [address] [address] Ph. [phone] ULEU Negative Normal Negative [facility] Comment on above: Performed By: #### U COMP/WRCX #### [address] [address] Ph. [phone] UNIT Negative Normal Negative [facility] Comment on above: Performed By: #### U COMP/WRCX #### [address] [address] Ph. [phone] UPH 6.0 Normal 5.0-7.0 [facility] Comment on above: Performed By: #### U COMP/WRCX #### [place] [address] Ph. [phone] UPRO Negative Normal Negative [facility] Comment on above: Performed By: #### U COMP/WRCX #### [place] [address] Ph. [phone] URBC Rare Normal [facility] Comment on above: Performed By: #### U COMP/WRCX #### [place] [address] Ph. [phone] USG 1.015 Normal 1.005-1.03 0 [facility] Comment on above: Performed By: #### U COMP/WRCX #### [place] [address] Ph. [phone] UURO 0.2 E.U./dL Normal <2.0 [facility] Comment on above: Performed By: #### U COMP/WRCX #### [place] [address] Ph. [phone] UWBC 0-2 Normal [facility] Comment on above: Performed By: #### U COMP/WRCX #### [place] [address] Ph. [phone] Glucose Nova Meteron 025 GLUNN 101 Normal [facility] Comment on above: Order Comment: Order ed by an unspecified provider Performed By: #### G FARIHA #### [place] [address] Ph. [phone] POCT Glucoseon 03-24-2025 Glucose [Mass/Vol] 101 mg/dL [facility] Ordered by an unspec ified provider [facility] XR KNEE RIGHT (1-2 VIEWS)on 03-24-2025 XR KNEE RIGHT (1-2 VIEWS) RADRPT EXAM: XR KNEE RIGHT (1-2 VIEWS) HISTORY: TECH NOTES: s/p right TKA s/p right TKA COMPARISON: None. TECHNIQUE: 2 views. FINDINGS: Arthroplasty without complication. Report electronically signed by: Dr. Lisa Rondon IMPRESSION: Arthroplasty without complication. s/p right TKA Interpreted by: Lisa Rondon DO Signed by: Lisa Rondon DO 03/24/25 Final result Normal [facility] Comment on above: Order Comment: Of op erative side while in recovery room. XR Knee - right 1 or 2 Views on 03-24-2025 Arthroplasty without complication. [facility] EXAM: XR KNEE RIGHT (1-2 VIEWS) HISTORY: TECH NOTES: s/p right TKA s/p right TKA COMPARISON: None. TECHNIQUE: 2 views. FINDINGS: Arthroplasty without complication. Report electronically signed by: Dr. Lisa Rondon [facility] Lisa Rondon DO - 03/24/2025 EXAM: XR KNEE RIGHT (1-2 VIEWS) HISTORY: TECH NOTES: s/p right TKA s/p right TKA COMPARISON: None. TECHNIQUE: 2 views. FINDINGS: Arthroplasty without complication. Report electronically signed by: Dr. Lisa Rondon IMPRESSION: Arthroplasty without complication. [facility] Work Phone: Radiology Study observation (narrative) [facility] Work Phone: XR Knee - right 1 or 2 Views Ordered By: Lisa Rondon on 03-24-2025 [facility] Work Phone: NM Heart Perfusion W stress and W radionuclide Dangelo 03-17-2025 Normal Lexiscan Myov iew cardiac perfusion stress test. No evidence of ischemia or myocardial infarction by perfusion imaging. Normal left ventricular systolic function, ejection fraction 61%. No previous studies are available for comparison. Signed by: Neha Roman 03/17/2025 4:40 PM Dictation workstation: [id number] [facility] MMODAL Interpreted By: Neha Hager, and Can Sotelo STUDY: MYOCARDIAL PERFUSION STRESS TEST WITH LEXISCAN Performing facility: [facility], [address], [address], [place] [address] [facility] Provider: Sintia Rose DO, FACC PCP: Dr. Gloria Quiroga Supervising provider: Sintia Rose DO, FACC INDICATION: Signs/Symptoms:poc, cad, htn. ,Z01.810 Encounter for preprocedural cardiovascular examination,I25.10 Atherosclerotic heart disease of [place] coronary artery without angina pectoris,Z98.61 Coronary angioplasty status,I21.9 Acute myocardial infarction, unspecified,I10 Essential (primary) hypertension HISTORY: Gender: F; Age: 74 y/o ; Height: HT 162.6 cm cm; Weight: WT 78.019 kg kg. CAD; High Cholesterol; Previous [place];2017 Quit smoking 38 years ago. Cardiac catheterization on 2017. 2016 COMPARISON: No comparison. ACCESSION NUMBER(S): [id number] ORDERING CLINICIAN: LUL ROSE TECHNIQUE: ONE DAY protocol. Stress injection: Date:03-17-25, [...] There was no evidence of attenuation artifact. MMODAL Neha Roman M D - 03/17/2025 Interpreted By: Neha Roman and Giannuzzi Michael STUDY: MYOCARDIAL PERFUSION STRESS TEST WITH LEXISCAN Performing facility: [facility], [address] [place] [address], [address], [place] [address] [facility] Provider: iSntia Rose DO, [facility] PCP: Dr. Gloria Quiroga Supervising provider: Sintia Rose DO [facility] INDICATION: Signs/Symptoms:poc, cad, htn. ,Z01.810 Encounter for preprocedural cardiovascular examination,I25.10 Atherosclerotic heart disease of [place] coronary artery without angina pectoris,Z98.61 Coronary angioplasty status,I21.9 Acute myocardial infarction, unspecified,I10 Essential (primary) hypertension HISTORY: Gender: F; Age: 74 y/o ; Height: HT 162.6 cm cm; Weight: WT 78.019 kg kg. CAD; High Cholesterol; Previous [place];2016 Quit smoking 38 years ago. Cardiac catheterization on 2016 COMPARISON: No comparison. ACCESSION NUMBER(S): [id number] ORDERING CLINICIAN: LUL ROSE TECHNIQUE: ONE DAY protocol. Stress injection: Date:03-17-25, [...] Neha Roman 03/17/2025 4:40 PM Dictation workstation: [id number] [facility] Work Phone: Radiology Study observation (narrative) [facility] Work Phone: NM Heart Perfusion W stress and W radionuclide IVOrdered By: Neha Roman on 03-17-2025 [facility] Work Phone: NUCLEAR STRESS TESTon 2024 NUCLEAR STRESS TEST Interpreted By: Neha Hager and Can Sotelo STUDY: MYOCARDIAL PERFUSION STRESS TEST WITH LEXISCAN Performing facility: [facility], [address] [place] [address], [address] Provider: Sintia Rose DO, FACC PCP: Dr. Gloria Quiroga Supervising provider: Sintia Rose DO, FACC INDICATION: Signs/Symptoms:poc, cad, htn. ,Z01.810 Encounter for preprocedural cardiovascular examination,I25.10 Atherosclerotic heart disease of [place] coronary artery without angina pectoris,Z98.61 Coronary angioplasty status,I21.9 Acute myocardial infarction, unspecified,I10 Essential (primary) hypertension HISTORY: Gender: F; Age: 74 y/o ; Height: HT 162.6 cm cm; Weight: WT 78.019 kg kg. CAD; High Cholesterol; Previous [place];2017 Quit smoking 38 years ago. Cardiac catheterization on 2016. 2017 COMPARISON: No comparison. ACCESSION NUMBER(S): [id number] ORDERING CLINICIAN: LUL ROSE TECHNIQUE: ONE DAY protocol. Stress injection: Date:03-17-25, [...] Neha Roman 03/17/2025 4:40 PM Dictation workstation: [id number] [facility] Cholesterol in LDL Calc [Mas s/Vol]on 03-03-2025 Cholesterol in LDL [Mass/Vol] Cholesterol in LDL [Mass/volume] in Serum or Plasma by calculation [facility] Comment on above: <100 mg/dl [id number] 0-129 mg/dl NEAR OR ABOVE [id number] mg/dl BORDERLINE [id number] mg/dl HIGH>190 mg/dl VERY HIGH Cholesterol in VLDL Calc [Ma ss/Vol]on 03-03-2025 Cholesterol in VLDL [Mass/Vol] Cholesterol in VLDL [Mass/volume] in Serum or Plasma by calculation [facility] Laboratory - Chemistry and C hemistry - challengeon 03-03-2025 Cholesterol [Mass/Vol] 155 mg/dL <=200 [facility] Cholesterol in HDL [Mass/Vol] 81 mg/dL High 40-60 [facility] Comment on above: > or =60 mg/dl - LOW CARDIOVASCULAR RISK<40 mg/dl - HIGH CARDIOVASCULAR RISK Free T4 [Mass/Vol] 1.10 ng/dL 0.76-1.46 [facility] Triglyceride [Mass/Vol] 99 mg/dL <=150 [facility] TSH Qn 3.829 m[IU]/L High 0.358-3.74 0 [facility] Serum or plasma total choles terol/high density lipoprotein (HDL) cholesterol mass snehal 03-03-2025 Cholesterol.total/Chol esterol in HDL [Mass ratio] Serum or plasma total cholesterol/high density lipoprotein (HDL) cholesterol mass rat [facility] Comment on above: 3.3 - 4.4 LOW RISK4. 4 - 7.1 AVERAGE RISK7.1 - 11.0 MODERATE RISK>11.0 HIGH RISK Urine Cultureon 03-03-2025 Bacteria identified Cx Nom (U) CRISSY SWAIN PA-C ORDERING PHYSICIAN >100,000 colonies/ml mixed bacterial skin contaminants 2 Days PERFORMED BY: [place] [address] PATHOLOGIST VIDEO NEWS EDITOR EMERALD ALVAREZ M.D. Normal [facility] Comment on above: Performed By: #### C UU #### [address] US.doppler Carotid arteries - bilateralon 04-08-[address], [address] [place] [address] Vascular Lab Report [facility] US CAROTID ARTERY DUPLEX BILATERAL Patient Name: GARTH Camarillo Physician: [id number] Neha Roman MD, [facility] Study Date: 04/08/2024 Ordering Provider: [id number] LUL ROSE MRN/PID: [id number] Fellow: Technologist: Orly New RDCS, T Date of /Age: 907/11/1950 / 73 years Technologist 2: Gender: F Admission Status: Outpatient Location Performed: [facility] Diagnosis/ICD: Occlusion and stenosis of bilateral carotid arteries-I65.23 Indication: HTN, Hyperlipidemia, Former Smoker, Previous TIA, CAD, PTCA-2017, PFO CPT Codes: 79516 Cerebrovascular Carotid Duplex scan complete CONCLUSIONS: Right [...] cm/s Right Left ICA/CCA Ratio 1.1 1.3 [id number] Neha Roman MD, FACLuis Fernando Final Neha Ma M D - 04/08/[address], Suite [facility], [place] [address] Vascular Lab Report [facility] US CAROTID ARTERY DUPLEX BILATERAL Patient Name: GARTH B SHARIF Reading Physician: [id number] Roman MD, FACC Study Date: 04/08/2024 Ordering Provider: [id number] LUL ROSE MRN/PID: [id number] Fellow: Technologist: Orly New RDCS, RVT Date of /Age: 907/11/1950 / 73 years Technologist 2: Gender: F Admission Status: Outpatient Location Performed: [facility] Diagnosis/ICD: Occlusion and stenosis of bilateral carotid arteries-I65.23 Indication: HTN, Hyperlipidemia, Former Smoker, Previous TIA, CAD, PTCA-2017, PFO CPT Codes: 30713 Cerebrovascular Carotid Duplex scan complete CONCLUSIONS: Right [...] cm/s Right Left ICA/CCA Ratio 1.1 1.3 [id number] Neha Roman MD, FACC Final [facility] Work Phone: Radiology Study observation (narrative) [facility] Work Phone: US.doppler Carotid arteries - bilateralOrdered By: Neha Roman on 04-08-2024 [facility] Work Phone: Cholesterol in LDL Calc [Mas s/Vol]on 02-27-2024 Cholesterol in LDL [Mass/Vol] 97.0 mg/dL [facility] Comment on above: <100 mg/dl [id number] 0-129 mg/dl NEAR OR ABOVE [id number] mg/dl BORDERLINE [id number] mg/dl HIGH>190 mg/dl VERY HIGH Cholesterol in VLDL Calc [Ma ss/Vol]on 02-27-2024 Cholesterol in VLDL [Mass/Vol] 17.8 mg/dL [facility] Laboratory - Chemistry and C hemistry - challengeon 02-27-2024 ALT [Catalytic activity/Vol] 23 U/L 14-59 [facility] AST [Catalytic activity/Vol] 18 U/L 15-37 [facility] Cholesterol [Mass/Vol] 187 mg/dL <=200 [facility] Cholesterol in HDL [Mass/Vol] 73 mg/dL High 40-60 [facility] Comment on above: > or =60 mg/dl - LOW CARDIOVASCULAR RISK<40 mg/dl - HIGH CARDIOVASCULAR RISK Free T4 [Mass/Vol] 1.15 ng/dL 0.76-1.46 [facility] Triglyceride [Mass/Vol] 89 mg/dL <=150 [facility] TSH Qn 1.136 m[IU]/L 0.358-3.74 0 [facility] Serum or plasma total choles terol/high density lipoprotein (HDL) cholesterol mass snehal 02-27-2024 Cholesterol.total/Chol esterol in HDL [Mass ratio] 2.6 {ratio} [facility] Comment on above: 3.3 - 4.4 LOW RISK4. 4 - 7.1 AVERAGE RISK7.1 - 11.0 MODERATE RISK>11.0 HIGH RISK Automated erythrocytes count in urine sediment (number/area)Ordered By: Aurelia Quiroga on 08-06-2023 RBC Auto (Urine sed) [#/Area] 3-4 [HPF] 0-4 [facility] Automated leukocytes count i n urine sediment (number/area)Ordered By: Aurelia Quiroga on 08-06-2023 WBC Auto (Urine sed) [#/Area] Innumerable [HPF] 0-4 [facility] Bilirubin Auto test strip Ql (U)Ordered By: Aurelia Quiroga on 08-06-2023 Bilirubin Ql (U) Negative Negative [facility] Ketones Auto test strip (U) [Mass/Vol]Ordered By: Aurelia Quiroga on 08-06-2023 Ketones (U) [Mass/Vol] Negative Negative [facility] Laboratory - UrinalysisOrder ed By: Aurelia Quiroga on 08-06-2023 Hyaline casts LM Ql (Urine sed) 0-8 [LPF] 0-8 [facility] Protein Auto test strip (U) [Mass/Vol]Ordered By: Aurelia Quiroga on 08-06-2023 Protein (U) [Mass/Vol] Negative Negative [facility] Squamous epithelial cells de tection in urine sediment by light microscopyOrdered By: Aurelia Quiroga on 08-06-2023 Epithelial cells.squamous LM Ql (Urine sed) None seen [HPF] 0-2 [facility] Urine appearanceOrdered By: Aurelia Quiroga on 08-06-2023 Appearance (U) Clear Clear [facility] Urine bacteria detection by automated methodOrdered By: Aurelia Quiroga on 08-06-2023 Bacteria Auto Ql (U) None seen None Seen [facility] Urine colorOrdered By: Krystyna Quiroga on 08-06-2023 Color (U) Yellow Yellow [facility] Urine glucose measurement by automated test strip (mass/volume)Ordered By: Aurelia Quiroga on 08-06-2023 Glucose Auto test strip (U) [Mass/Vol] Normal mg/dL Normal [facility] Urine hemoglobin detection b y automated test stripOrdered By: Aurelia Quiroga on 08-06-2023 Hemoglobin Auto test strip Ql (U) 1+ Negative [facility] Urine leukocyte esterase det ection by automated test stripOrdered By: Aurelia Quiroga on 08-06-2023 Leukocyte esterase Auto test strip Ql (U) 4+ Negative [facility] Urine nitrite detection by a utomated test stripOrdered By: Aurelia Quiroga on 08-06-2023 Nitrite Auto test strip Ql (U) Negative Negative [facility] Urobilinogen Auto test strip (U) [Mass/Vol]Ordered By: Aurelia Quiroga on 08-06-2023 Urobilinogen (U) [Mass/Vol] Normal mg/dL Normal [facility] pH Auto test strip (U)Ordere d By: Aurelia Quiroga on 08-06-2023 pH (U) 1.005 [pH] 1.001-1.03 0 [facility] pH (U) 6.5 [pH] 5.0-9.0 [facility] Activated partial thrombopla stin time (aPTT) in platelet poor plasma by coagulation aOrdered By: Danny Rodríguez on 07-10-2023 aPTT Coag (PPP) [Time] 28.0 s 25.1-36.5 [facility] Comment on above: A hematocrit value g reater than 55% may lead to inaccurate results in coagulation testing. Patients having hematocrit values >55% require a special collection tube for coagulation studies. Please contact the laboratory at [phone] for redraw instructions. Alanine aminotransferase [En zymatic activity/volume] in Serum or PlasmaOrdered By: Danny Rodríguez on 07-10-2023 ALT [Catalytic activity/Vol] 28 U/L 7-52 [facility] Albumin [Mass/volume] in Ser um or Plasma by Bromocresol green (BCG) dye binding methoOrdered By: Danny Rodríguez on 07-10-2023 Albumin BCG dye [Mass/Vol] 4.1 g/dL 3.5-5.7 [facility] Alkaline phosphatase [Enzyma tic activity/volume] in Serum or PlasmaOrdered By: Danny Rodríguez on 07-10-2023 ALP [Catalytic activity/Vol] 40 U/L 34-104 [facility] Aspartate aminotransferase [ Enzymatic activity/volume] in Serum or PlasmaOrdered By: Danny Rodríguez 07-10-2023 AST [Catalytic activity/Vol] 21 U/L 13-39 [facility] Basophils Auto (Bld) [#/Vol] Ordered By: Danny Fernandesland on 07-10-2023 Basophils (Bld) [#/Vol] 0.0 10*3/uL 0.0-0.2 [facility] Basophils/100 WBC Auto (Bld) Ordered By: Danny Rodríguez on 07-10-2023 Basophils/100 WBC (Bld) 0.4 % . [facility] Bilirubin.direct [Mass/volum e] in Serum or PlasmaOrdered By: Danny Rodríguez on 07-10-2023 Bilirubin.direct [Mass/Vol] 0.10 mg/dL 0.03-0.18 [facility] Bilirubin.total [Mass/volume ] in Serum or PlasmaOrdered By: Danny Rodríguez 07-10-2023 Bilirubin [Mass/Vol] 0.7 mg/dL 0.3-1.0 [facility] Calcium [Mass/volume] in Ser um or PlasmaOrdered By: Danny Rodríguez 07-10-2023 Calcium [Mass/Vol] 9.0 mg/dL 8.6-10.3 [facility] Carbon dioxide, total [Moles /volume] in Serum or PlasmaOrdered By: Danny Rodríguez 07-10-2023 CO2 [Moles/Vol] 23.5 mmol/L 21.0-31.0 [facility] Chloride [Moles/volume] in S nagi or PlasmaOrdered By: Danny Fernandesland 07-10-2023 Chloride [Moles/Vol] 106 mmol/L 98-107 [facility] Creatine kinase [Enzymatic a ctivity/volume] in Serum or PlasmaOrdered By: Danny Fernandesland 07-10-2023 CK [Catalytic activity/Vol] 81 U/L 30-223 [facility] Creatinine [Mass/volume] in Serum or PlasmaOrdered By: Danny Rodríguez 07-10-2023 Creatinine [Mass/Vol] 0.69 mg/dL 0.60-1.20 [facility] Eosinophils Auto (Bld) [#/Vo l]Ordered By: Danny Rodríguez 07-10-2023 Eosinophils (Bld) [#/Vol] 0.1 10*3/uL 0.0-0.45 [facility] Eosinophils/100 WBC Auto (Bl d)Ordered By: Danny Rodríguez on 07-10-2023 Eosinophils/100 WBC (Bld) 0.9 % . [facility] Erythrocyte distribution wid th Auto (RBC) [Ratio]Ordered By: Danny Rodríguez on 07-10-2023 Erythrocyte distribution width (RBC) [Ratio] 13.8 % 11.9-15.3 [facility] Globulin Calc (S) [Mass/Vol] Ordered By: Danny Rodríguez on 07-10-2023 Globulin (S) [Mass/Vol] 2.1 g/dL [facility] Glucose [Mass/volume] in Ser um or PlasmaOrdered By: Danny Rodríguez 07-10-2023 Glucose [Mass/Vol] 107 mg/dL 70-100 [facility] Comment on above: ADA recommended refe rence rangeRandom Glucose Reference Range is dependent on time and content of last meal. Glucose of more than 200 mg/dL in a nonstressed, ambulatory subject supports the diagnosis of Diabetes Mellitus. Hematocrit Auto (Bld) [Volum e fraction]Ordered By: Danny Fernandesland on 07-10-2023 Hematocrit (Bld) [Volume fraction] 39.6 % 34.0-46.4 [facility] Hemoglobin [Mass/volume] in BloodOrdered By: Danny Fernandesland 07-10-2023 Hemoglobin (Bld) [Mass/Vol] 13.4 g/dL 11.8-15.4 [facility] INR in Platelet poor plasma by Coagulation assayOrdered By: Danny Rodríguez 07-10-2023 INR Coag (PPP) [Relative time] 0.9 {INR} [facility] Comment on above: INR Therapeutic Rang e A) Pre- and Peroperative OAT started two weeks before surgery. NOT HIP SURGERY: 1.5 - 2.5 HIP SURGERY: 2 - 3B) Primary and secondary prevention of venous THROMBOSIS: 2 - 3C) Active venous thrombosis, pulmonary embolismand prevention of recurrent venous thrombosis: 2 - 3D) Prevention of arterial thromboembolismincluding patients with mechanical heart valves: 3 - 4.5 Leukocytes [#/volume] correc harman for nucleated erythrocytes in Blood by Automated counOrdered By: Danny Rodríguez on 07-10-2023 WBC corrected for nucl RBC Auto (Bld) [#/Vol] 8.3 10*3/uL 3.8-11.6 [facility] Lipase [Enzymatic activity/v olume] in Serum or PlasmaOrdered By: Danny Rodríguez on 07-10-2023 Lipase [Catalytic activity/Vol] 14.0 U/L 11.0-82.0 [facility] Lymphocytes Auto (Bld) [#/Vo l]Ordered By: Danny Rodríguez on 07-10-2023 Lymphocytes (Bld) [#/Vol] 2.3 10*3/uL 1.00-4.8 [facility] Lymphocytes/100 WBC Auto (Bl d)Ordered By: Danny Rodríguez on 07-10-2023 Lymphocytes/100 WBC (Bld) 27.9 % . [facility] MCH Auto (RBC) [Entitic mass ]Ordered By: Danny Rodríguez on 07-10-2023 MCH (RBC) [Entitic mass] 32.6 pg 24.7-34.3 [facility] MCHC Auto (RBC) [Mass/Vol]Or dered By: Danny Rodríguez on 07-10-2023 MCHC (RBC) [Mass/Vol] 33.8 g/dL 32.0-35.0 [facility] MCV Auto (RBC) [Entitic vol] Ordered By: Danny Rodríguez on 07-10-2023 MCV (RBC) [Entitic vol] 96.4 fL 80-100 [facility] Monocyte distribution width [Entitic volume] in Blood by AutomatedOrdered By: Danny Rodríguez on 07-10-2023 Monocyte distribution width Auto (Bld) [Entitic vol] 16.16 % 0.00-20.00 [facility] Monocytes Auto (Bld) [#/Vol] Ordered By: Danny Rodríguez on 07-10-2023 Monocytes (Bld) [#/Vol] 0.6 10*3/uL 0.0-0.8 [facility] Monocytes/100 WBC Auto (Bld) Ordered By: Danny Rodríguez on 07-10-2023 Monocytes/100 WBC (Bld) 6.9 % . [facility] Natriuretic peptide B [Mass/ Vol]Ordered By: Danny Rodríguez on 07-10-2023 Natriuretic peptide B (Bld) [Mass/Vol] 92.0 pg/mL 5-100 [facility] Neutrophils Auto (Bld) [#/Vo l]Ordered By: Danny Rodríguez on 07-10-2023 Neutrophils (Bld) [#/Vol] 5.3 10*3/uL 1.8-7.7 [facility] Neutrophils/100 WBC Auto (Bl d)Ordered By: Danyn Rodríguez on 07-10-2023 Neutrophils/100 WBC (Bld) 63.9 % . [facility] No Panel InformationOrdered By: Danny Rodríguez on 07-10-2023 Estimated GFR (CKD-EPI) > 60.0 mL/Min [facility] Creatinine Clearance (Chem 66.70 [facility] Nucleated erythrocytes [Pres ence] in Blood by Automated countOrdered By: Danny Rodríguez on 07-10-2023 Nucleated RBC Auto Ql (Bld) 0.3 /100{WBC} 0-0.5 [facility] Platelet mean volume Auto (B ld) [Entitic vol]Ordered By: Danny Rodríguez on 07-10-2023 Platelet mean volume (Bld) [Entitic vol] 8.0 fL 6.3-10.7 [facility] Platelets Auto (Bld) [#/Vol] Ordered By: Danny Rodríguez 07-10-2023 Platelets (Bld) [#/Vol] 211 10*3/uL 150-450 [facility] Potassium [Moles/volume] in Serum or PlasmaOrdered By: Danny Rodríguez on 07-10-2023 Potassium [Moles/Vol] 3.6 mmol/L 3.5-5.1 [facility] Protein [Mass/volume] in Ser um or PlasmaOrdered By: Danny Rodríguez 07-10-2023 Protein [Mass/Vol] 6.2 g/dL 6.4-8.9 [facility] Prothrombin time (PT)Ordered By: Danny Rodríguez on 07-10-2023 PT Coag (PPP) [Time] 10.9 s 9.0-12.9 [facility] Comment on above: A hematocrit value g reater than 55% may lead to inaccurate results in coagulation testing. Patients having hematocrit values >55% require a special collection tube for coagulation studies. Please contact the laboratory at [phone] for redraw instructions. RBC Auto (Bld) [#/Vol]Ordere d By: Danny Rodríguez on 07-10-2023 RBC (Bld) [#/Vol] 4.11 10*6/uL 3.60-5.00 [facility] Serum or plasma albumin/glob ulin mass ratioOrdered By: Danny Rodríguez on 07-10-2023 Albumin/Globulin [Mass ratio] 2.0 {ratio} [facility] Serum or plasma anion gap de terminationOrdered By: Danny Rodríguez 07-10-2023 Anion gap [Moles/Vol] 13.1 mmol/L 6.0-15.0 [facility] Serum or plasma non-glucuron idated bilirubin measurement (mass/volume)Ordered By: Danny Rodríguez 07-10-2023 Bilirubin.indirect [Mass/Vol] 0.6 mg/dL [facility] Sodium [Moles/volume] in Ser um or PlasmaOrdered By: Danny Rodríguez 07-10-2023 Sodium [Moles/Vol] 139 mmol/L 136-145 [facility] Thyrotropin [Units/volume] i n Serum or PlasmaOrdered By: Danny Rodríguez 07-10-2023 TSH Qn 2.45 m[IU]/L 0.45-5.33 [facility] Troponin I.cardiac [Mass/vol ume] in Serum or Plasma by Detection limit <= 0.01 ng/Ordered By: Danny Rodríguez on 07-10-2023 Troponin I.cardiac DL <= 0.01 ng/mL [Mass/Vol] 12.0 pg/mL 0.0-15.0 [facility] Urea nitrogen [Mass/volume] in Serum or PlasmaOrdered By: Danny Rodríguez 07-10-2023 Urea nitrogen [Mass/Vol] 8 mg/dL 7-25 [facility] WBC Auto (Bld) [#/Vol]Ordere d By: Danny Rodríguez on 07-10-2023 WBC (Bld) [#/Vol] 8.3 10*3/uL 3.8-11.6 [facility] FREE T4on 09-19-2022 Free T4 [Mass/Vol] 1.16 ng/dL Normal 0.76-1.46 [facility] Comment on above: Performed By: #### F T4 #### [facility] [address] [place], [place] [address] Dr. Capo Jack TSHon 09-19-2022 TSH 0.636 uIU/mL Normal 0.358-3.74 0 [facility] Comment on above: Performed By: #### T SH #### [facility] [address] [place], [place] [address] Dr. Capo Jack MG MAMM SCREEN 3D DAMI CADon 08-20-2022 MG MAMM SCREEN 3D DAMI CAD Patient: GARTH OLGUIN Exam Date: 08/20/2022 : 1950 Gender:F Ordering : DR THIERRY BETANCOURT Admission #: [id number] Family : Order #: [id number] CLICK HERE TO VIEW EXAM RADIOLOGY REPORT PROCEDURE: MAMMOGRAM SCREENING 3D BILATERAL CAD COMPARISON: MG MAMM SCREEN DAMI W CAD, 07/07/2020. MG MAMM SCREEN 3D DAMI CAD, 07/31/2021. INDICATIONS: Screening mammography Calculator Name NCI Breast Cancer Risk Assessment Tool 5 Year Breast Cancer Risk 1.70% Lifetime Breast Cancer Risk 5.00% Personal Breast Cancer No Personal Ovarian Cancer No Treatments hysterectomy Family Cancers Mother with pancreatic cancer at age 70. LOCATION: [facility] BREAST COMPOSITION: Heterogeneously dense,which may obscure small masses. FINDINGS: DIAGNOSTIC CATEGORY 2--BENIGN FINDING. NO CHANGE FROM COMPARISON. Scattered benign-appearing nodules are present. Scattered benign-appearing calcifications are present. Scattered benign-appearing lymph nodes are present. RIGHT BREAST: No significant suspicious finding. LEFT BREAST: No significant suspicious finding. RECOMMENDATIONS: ROUTINE MAMMOGRAM AND CLINICAL EVALUATION IN 12 MONTHS. PLEASE NOTE: A NORMAL MAMMOGRAM DOES NOT EXCLUDE THE POSSIBILITY OF BREAST CANCER. A CLINICALLY SUSPICIOUS PALPABLE LUMP SHOULD BE BIOPSIED. Dictated by: Penny Hrading MD on 08/21/2022 at 07:15 Approved by: Penny Harding MD on 08/21/2022 at 07:17 Normal [facility] ED Note-Physicianon 05-24-20 ED Note-Physician [id number]:12 7 Normal [facility] Consultation Noteon 05-21-20 Consultation Note [id number]:12 7 Normal [facility] FREE T4on 05-21-2022 Free T4 [Mass/Vol] 1.64 ng/dL Critically high 0.76-1.46 T [facility] Comment on above: Performed By: #### F T4 #### [facility] [address] [place] [address] Dr. Capo Jack TSHon 05-21-2022 TSH 0.619 uIU/mL Normal 0.358-3.74 0 [facility] Comment on above: Performed By: #### T SH #### [facility] [address] [place] [address] Dr. Capo Jack AMYLASEon 05-19-2022 Amylase [Catalytic activity/Vol] 39 U/L Normal 25-115 [facility] Comment on above: Performed By: #### L IPA, JACQUELYN, CMP #### [facility] [address] [place] [address] Dr. Capo Jack CBC AUTO DIFFon 05-19-2022 BASO # 0.1 103/ul Normal 0.0-0.1 [facility] Comment on above: Performed By: #### C BC #### [facility] [address] [place] [address] Dr. Capo Jack Basophils/100 WBC (Bld) 1.0 % Normal 0.2-2.0 [facility] Comment on above: Performed By: #### C BC #### [facility] [address] [place] [address] Dr. Capo Jack EO # 0.1 103/ul Normal 0.0-0.7 [facility] Comment on above: Performed By: #### C BC #### [facility] [address] [place] [address] Dr. Capo Jack Eosinophils/100 WBC (Bld) 0.6 % Critically low 0.9-7.0 [facility] Comment on above: Performed By: #### C BC #### [facility] [address] [place] [address] Dr. Capo Jack Erythrocyte distribution width (RBC) [Ratio] 12.6 % Normal 11.0-15.0 [facility] Comment on above: Performed By: #### C BC #### [facility] [address] [place] [address] Dr. Capo Jack Hematocrit (Bld) [Volume fraction] 39.1 % Normal 36.0-48.0 [facility] Comment on above: Performed By: #### C BC #### [facility] [address] [place] [address] Dr. Capo Jack Hemoglobin (Bld) [Mass/Vol] 13.1 g/dL Normal 12.0-16.0 [facility] Comment on above: Performed By: #### C BC #### [facility] [address] [place] [address] Dr. Capo Jack IG # 0.03 10e3/ul Normal 0.00-0.03 [facility] Comment on above: Performed By: #### C BC #### [facility] [address] [place] [address] Dr. Capo Jack IG % 0.4 % Normal 0.0-0.5 [facility] Comment on above: Performed By: #### C BC #### [facility] [address] [place] [address] Dr. Capo Jack LYMPH # 1.8 103/ul Normal 1.2-3.8 [facility] Comment on above: Performed By: #### C BC #### [facility] [address] [place] [address] Dr. Capo Jack Lymphocytes/100 WBC (Bld) 23.6 % Normal 20.5-60.0 [facility] Comment on above: Performed By: #### C BC #### [facility] [address] [place] [address] Dr. Capo Jack MANUAL DIFF REQ NO Normal [facility] Comment on above: Performed By: #### C BC #### [facility] [address] [place] [address] Dr. Capo Jack MCH (RBC) [Entitic mass] 31.6 pg Normal 26.7-34.0 [facility] Comment on above: Performed By: #### C BC #### [facility] [address] [place] [address] Dr. Capo Jack MCHC (RBC) [Mass/Vol] 33.5 g/dL Normal 29.9-35.2 [facility] Comment on above: Performed By: #### C BC #### [facility] [address] [place] [address] Dr. Capo Jack MCV (RBC) [Entitic vol] 94.4 fL Normal 81.0-99.0 [facility] Comment on above: Performed By: #### C BC #### [facility] [address] [place] [address] Dr. Capo Jack MONO # 0.5 103/ul Normal 0.3-0.8 [facility] Comment on above: Performed By: #### C BC #### [facility] [address] [place] [address] Dr. Capo Jack Monocytes/100 WBC (Bld) 6.7 % Normal 1.7-12.0 [facility] Comment on above: Performed By: #### C BC #### [facility] [address] [place] [address] Dr. Capo Jack NEUT # 5.2 103/ul Normal 1.4-6.5 [facility] Comment on above: Performed By: #### C BC #### [facility] [address] [place] [address] Dr. Capo Jack Neutrophils/100 WBC (Bld) 67.7 % Normal 43.0-75.0 [facility] Comment on above: Performed By: #### C BC #### [facility] [address] [place] [address] Dr. Capo Jack Platelet mean volume (Bld) [Entitic vol] 11.0 fL Normal 9.5-13.5 [facility] Comment on above: Performed By: #### C BC #### [facility] [address] [place] [address] Dr. Capo Jack PLT 192 103/ul Normal 150-450 [facility] Comment on above: Performed By: #### C BC #### [facility] [address] [place] [address] Dr. Capo Jack RBC 4.14 106/ul Critically low 4.20-5.40 [facility] Comment on above: Performed By: #### C BC #### [facility] [address] [place] [address] Dr. Capo Jack WBC 7.7 103/ul Normal 4.0-11.0 [facility] Comment on above: Performed By: #### C BC #### [facility] [address] [place] [address] Dr. Capo Jack LIPASEon 05-19-2022 Lipase [Catalytic activity/Vol] 87.0 U/L Normal 73.0-393.0 [facility] Comment on above: Performed By: #### L JACQUELYN LLOYD, CMP #### [facility] [address] [place] [address] Dr. Capo Jack PROF 14(COMP METB)on 022 Albumin [Mass/Vol] 3.8 g/dL Normal 3.4-5.0 [facility] Comment on above: Performed By: #### L JACQUELYN LLOYD, CMP #### [facility] [address] [place] [address] Dr. Capo Jack Albumin/Globulin [Mass ratio] 1.6 {ratio} Normal [facility] Comment on above: Performed By: #### L JACQUELYN LLOYD, CMP #### [facility] [address] [place] [address] Dr. Capo Jack ALP [Catalytic activity/Vol] 57 U/L Normal 46-116 [facility] Comment on above: Performed By: #### L JACQUELYN LLOYD, CMP #### [facility] [address] [place] [address] Dr. Capo Jack ALT [Catalytic activity/Vol] 25 U/L Normal 14-59 [facility] Comment on above: Performed By: #### L JACQUELYN LLOYD, CMP #### [facility] [address] [place] [address] [address] Capo Jack Anion gap [Moles/Vol] 12.8 mmol/L Normal [facility] Comment on above: Performed By: #### L JACQUELYN LLOYD, CMP #### [facility] [address] [place] [address] [address] Capo Jack AST [Catalytic activity/Vol] 19 U/L Normal 15-37 [facility] Comment on above: Performed By: #### L JACQUELYN LLOYD, CMP #### [facility] [address] [address] [address] Capo Jack Bilirubin [Mass/Vol] 0.4 mg/dL Normal 0.2-1.0 [facility] Comment on above: Performed By: #### L JACQUELYN LLOYD, CMP #### [facility] [address] [address] [address] Capo Jack Calcium [Mass/Vol] 8.7 mg/dL Normal 8.5-10.1 [facility] Comment on above: Performed By: #### L JACQUELYN LLOYD, CMP #### [facility] [address] [address] [address] Capo Jack Chloride [Moles/Vol] 109 mmol/L Critically high 98-107 [facility] Comment on above: Performed By: #### L JACQUELYN LLOYD, CMP #### [facility] [address] [address] [address] Capo Jack CO2 [Moles/Vol] 25.9 mmol/L Normal 21.0-32.0 [facility] Comment on above: Performed By: #### L JACQUELYN LLOYD, CMP #### [facility] [address] [address] [address] Capo Jack Creatinine [Mass/Vol] 0.72 mg/dL Normal 0.55-1.02 [facility] Comment on above: Performed By: #### L JACQUELYN LLOYD, CMP #### [facility] [address] [address] [address] Capo Jack EGFR-AF BRUNEIAN >60 Normal >=60 [facility] Comment on above: Performed By: #### L JACQUELYN LLOYD, CMP #### [facility] [address] [address] [address] Capo Jack EGFR-NON AF BRUNEIAN >60 Normal >=60 [facility] Comment on above: Performed By: #### L JACQUELYN LLOYD, CMP #### [facility] [address] [address] [address] Capo Jack Globulin (S) [Mass/Vol] 2.4 g/dL Normal [facility] Comment on above: Performed By: #### L JACQUELYN LLOYD, CMP #### [facility] [address] [address] [address] Capo Jack Glucose [Mass/Vol] 120 mg/dL Critically high 74-106 [facility] Comment on above: Performed By: #### L JACQUELYN LLOYD, CMP #### [facility] [address] [address] [address] Capo Jack Potassium [Moles/Vol] 3.7 mmol/L Normal 3.5-5.1 [facility] Comment on above: Performed By: #### L JACQUELYN LLOYD, CMP #### [facility] [address] [address] [address] Capo Jack Protein [Mass/Vol] 6.2 g/dL Critically low 6.4-8.2 [facility] Comment on above: Performed By: #### L JACQUELYN LLOYD, CMP #### [facility] [address] [address] [address] Capo Jack Sodium [Moles/Vol] 144 mmol/L Normal 136-145 [facility] Comment on above: Performed By: #### L JACQUELYN LLOYD, CMP #### [facility] [address] [address] [address] Capo Jack Urea nitrogen [Mass/Vol] 7.0 mg/dL Normal 7.0-18.0 [facility] Comment on above: Performed By: #### L JACQUELYN LLOYD, CMP #### [facility] [address] [place], [place] [address] Dr. Capo Jack Urea nitrogen/Creatinine [Mass ratio] 9.7 mg/mg Normal [facility] Comment on above: Performed By: #### L JACQUELYN LLOYD, CMP #### [facility] [address] [place], [place] [address] Dr. Capo Jack CREATININEon 05-07-2022 Creatinine [Mass/Vol] 0.68 mg/dL Normal 0.55-1.02 [facility] Comment on above: Performed By: #### C PAUL ####[facility] [id number] [place], [place] [address]FoDr. Capo Jack EGFR-AF BRUNEIAN >60 Normal >=60 [facility] Comment on above: Performed By: #### C PALU ####[facility] [address] [place], [place] [address]IfMao Jack EGFR-NON AF BRUNEIAN >60 Normal >=60 [facility] Comment on above: Performed By: #### C PAUL ####[facility] [id number] [place], [place] [address] ABD/PELV W CONon 05-07-20 CT ABD/PELV W CON EXAMINATION: CT ABD/ PELV W CON HISTORY: Abdominal pain , right upper quadrant pain COMPARISON: CT abdomen pelvis 07/24/2021 TECHNIQUE: Axial, Coronal, and Sagittal images were created with IV contrast. Dose reduction techniques were achieved by using automated exposure control and/or adjustment of mA and/or kV according to patient size and/or use of iterative reconstruction technique. FINDINGS: LUNG BASES: No visible pulmonary or pleural disease. LIVER: Stable small cysts versus hemangiomas. No enlargement, atrophy, suspicious density, or significant focal lesion. BILIARY: Cholecystectomy. PANCREAS: No lesion, fluid collection, or abnormal duct dilatation. SPLEEN: No enlargement or focal lesion. ADRENALS: No mass or enlargement. KIDNEYS: No mass, obstruction, or calcification. BOWEL/MESENTERY: Large hiatal hernia. Marked diverticulosis of the sigmoid colon without acute inflammatory changes. No visible mass, obstruction, or bowel wall thickening. Normal appendix. AORTA/VASCULAR: Marked atherosclerotic disease. No aneurysm or dissection. RETROPERITONEUM: No mass or adenopathy. LYMPH NODES: No adenopathy. URINARY BLADDER: No visible focal wall thickening, lesion, or calculus. PELVIC ORGANS: Hysterectomy. ABDOMINAL WALL: No mass or hernia. BONES: Marked levoscoliosis of lumbar spine and degenerative disc disease. No bony lesion or fracture. OTHER: Negative. IMPRESSION: 1. No suspicious findings to account for patient's right upper quadrant symptoms. 2. Large hiatal hernia. 3. Sigmoid diverticulosis. 4. Marked levoscoliosis and degenerative disc disease of lumbar spine. Electronically authenticated by: MARY RASCON Date: 2022-05-07 18:07 Normal [facility] Office Visit (Cardiology)on 03-06-2022 Follow-up visit Diagnoses/Problems Assessed TIA (transient ischemic attack) (435.9) (G45.9) Myocardial infarction (410.90) (I21.9) Hyperlipidemia (272.4) (E78.5) History of PTCA (V45.82) (Z98.61) Essential hypertension (401.9) (I10) Bilateral carotid artery stenosis (433.10,433.30) (I65.23) Class 1 obesity with body mass index (BMI) of 31.0 to 31.9 in adult (278.00,V85.31) (E66.9,Z68.31) Former smoker (V15.82) (Z87.891) PFO (patent foramen ovale) (745.5) (Q21.1) Orders Bilateral carotid artery stenosis, TIA (transient ischemic attack) Renew: Aspirin EC 81 MG Oral Tablet Delayed Release; TAKE 1 TABLET DAILY Class 1 obesity with body mass index (BMI) of 31.0 to 31.9 in adult Healthy Weight Tips; Status:Complete - Retrospective Authorization; Done: 06Mar2022 Some eating tips that can help you lose weight.; Status:Complete - Retrospective Authorization; Done: 06Mar2022 Essential hypertension Renew: Metoprolol Succinate ER 25 MG Oral Tablet Extended Release 24 Hour; TAKE 1 TABLET DAILY Hyperlipidemia Renew: Atorvastatin Calcium 20 MG Oral Tablet; TAKE 1 TABLET ON FRIDAY-FRIDAY NONE ON FRIDAY OR FRIDAY SocHx: Former smoker Tobacco Use Screening; Status:Complete; Done: 06Mar2022 Patient Instructions By signing my name below, I, Flor Ordonezbobby DAVENPORT ,Scribe, attest that this documentation has been prepared under the direction and in the presence of Dr. Lul Rose, . Please bring all medicines, vitamins, and herbal supplements with you when you come to the office. Prescriptions will not be filled unless you are compliant with your follow up appointments or have a follow up appointment scheduled as per instruction of your physician. Refills should be requested at the time of your visit. Follow up in 1 year Chief Complaint GARTH OLGUIN is being seen for an annual follow-up of. 71-year-old female returns for follow-up and is overall doing well she has no cardiovascular complaints, no neurological complaints or recurrences. She does have underlying history of ASHD with remote PCI of the RCA 2017, hypertension, hyperlipidemia most recent LDL cholesterol is 94 on low-dose atorvastatin 5 days a week. Echocardiogram and carotid duplex exam from last year are reviewed documenting PFO with right to left shunting potentially consistent with her previous TIA event 1 year ago details of which are reviewed. She is currently on single agent aspirin 81 mg daily and low-dose atorvastatin as noted. Informed decision-making process performed with patient today in regards to 1 appropriate guideline directed medical therapies for her given to vascular bed involvement (neuro and cardiac) and appropriate LDL goal of 70. We have counseled her on considering increasing her atorvastatin to 40 mg daily for better attainment of that goal in addition to diet and exercise. Further, we did discuss her PFO with right to left shunting and the possibility of recurrence of neurologic events and in consideration for structural heart referral/second opinion versus more aggressive antiplatelet therapy with the addition of clopidogrel. Mrs. Acostaers somewhat reticent to the above recommendations and we simply stated our position is to inform her as much as possible and make appropriate recommendations the ultimate choice is up to her. Given the above, recommendations are to proceed with atorvastatin 40 daily and referral for structural heart eval for second opinion regarding PFO. Otherwise we will follow-up in 1 year Surgical History Problems History of Arthroscopy History of Cholecystectomy History of Complete colonoscopy History of Lower back surgery History of Thyroidectomy History of Tonsillectomy with adenoidectomy Current Meds Medication NameInstruction Aspirin EC 81 MG Oral Tablet Delayed ReleaseTAKE 1 TABLET DAILY. Atorvastatin Calcium 20 MG Oral TabletTAKE 1 TABLET ON FRIDAY-FRIDAY NONE ON FRIDAY OR FRIDAY busPIRone HCl - 5 MG Oral TabletUSE DIRECTED Calcium 600 MG TABSTAKE 1 CAPSULE 3 TIMES WEEKLY Dicyclomine HCl - 20 MG Oral TabletUSE DIRECTED Flaxseed Oil CAPSTAKE 1 CAPSULE Daily Halobetasol Propionate CREAUSE DIRECTED Levothyroxine Sodium 88 MCG Oral TabletTAKE 1 TABLET DAILY. Metoprolol Succinate ER 25 MG Oral Tablet Extended Release 24 HourTAKE 1 TABLET DAILY. Multi Vitamin Oral TabletTAKE 1 TABLET DAILY. Nitrostat 0.3 MG Sublingual Tablet SublingualTAKE DIRECTED. Probiotic CAPSTAKE 1 CAPSULE Daily Tylenol TABSTAKE 1 TO 2 TABLETS EVERY 4 HOURS NEEDED Vitamin C 500 MG Oral CapsuleTAKE 1 CAPSULE Daily Vitamin D3 25 MCG Oral TabletTAKE 1 TABLET DAILY. XyliMelts 550 MG Mouth/Throat DiskTake 1 daily Allergies Medication Beta Adrenergic Blockers Recorded By: Ayde Rausch; 11/28/2021 9:41:31 AM bradycardia ciprofloxacin Recorded By: Ayde Rausch; 11/28/2021 9:41:31 AM myalgias Social History Problems Caffeine use (V49.89) (Z78.9) Former smoker (V15.82) (Z87.891) No alcohol use No (more content not included)... Normal [employer] Tobacco Screening.on 022 Adult depression screening assessment No [facility] y 250 DO Work Phone: Fall risk assessment a) No falls within the last year [facility] F[facility] y 250 DO Work Phone: Tobacco use status [facility] b) No [facility] Farg[facility]k y 250 DO Work Phone: Echocardiogramon 04-03-[address], [address] [place] [address] TRANSTHORACIC ECHOCARDIOGRAM REPORT Patient Name: GARTH Camarillo Physician: [id number] Davey OLGUIN MD Study Date: 04/03/2021 Referring [id number] LUL ROSE Physician: MRN/PID: [id number] PCP: Aurelia Quiroga Accession/Order#: [id number] [facility] Location: Date of : 1950 Fellow: Gender: F Nurse: Anu Rincon RN Admit Date: Patient Service Associate: Orly New RDCS, RVT Height: 165.10 cm CC Report to: Weight: 83.01 kg Study Type: Echocardiogram BSA: 1.90 m2 Blood Pressure: 154 /76 mmHg Diagnosis/ICD: I25.10-Atherosclerotic heart disease of [place] coronary artery without angina pectoris Indication: Hypercoagulable State, HTN, Hyperlipidemia, TN and PTCA-2017, Former Smoker, Obesity, TIA Procedure/CPT: Echo Complete w Full Doppler-[id number] Study Detail: The following Echo studies were performed: 2D, M-Mode, Doppler and color flow. Agitated saline used as a contrast agent for intraseptal flow evaluation. PHYSICIAN INTERPRETATION: Left Ventricle: The left ventricular systolic function is normal, with an estimated ejection fraction of 60-65%. The left ventricular cavity size is normal. Spectral Doppler shows a normal pattern of left ventricular diastolic filling. Left Atrium: The left atrium is mildly dilated. At the level of the intra-atrial septum there is clear echo dropout. During contrast injection there was evidence of right to left shunt consistent with patent foramen ovale membrane or small atrial septal defect. Right Ventricle: The right ventricle is normal in size. There is normal right ventricular global systolic function. Right Atrium: The right atrium is normal in size. Aortic Valve: The aortic valve appears structurally normal. There is no evidence of aortic valve regurgitation. The peak instantaneous gradient of the aortic valve is 13.7 mmHg. The mean gradient of the aortic valve is 6.0 mmHg. Mitral Valve: The mitral valve is mildly thickened. There is mild mitral valve regurgitation. Mild mitral regurgitation. Tricuspid Valve: The tricuspid valve is structurally normal. There is trace tricuspid regurgitation. Pulmonic Valve: The pulmonic valve is structurally normal. There is mild pulmonic valve regurgitation. Pericardium: There is no pericardial effusion noted. Aorta: The aortic root is normal. Systemic Veins: The inferior vena cava appears to be of normal size. CONCLUSIONS: 1. The left ventricular systolic function is normal with a 60-65% estimated ejection fraction. 2. At the level of the intra-atrial septum there is clear echo dropout. During contrast injection there was evidence of right to left shunt consistent with patent foramen ovale membrane or small atrial septal defect. 3. Mild mitral regurgitation. 4. When compared to prior study. The finding of PFO/ASD was not previously reported. QUANTITATIVE DATA SUMMARY: 2D MEASUREMENTS: Normal Ranges: Ao Root d: 2.60 cm (2.0-3.7cm) LAs: 3.30 cm (2.7-4.0cm) RVIDd: 2.90 cm (0.9-3.6cm) IVSd: 0.90 cm (0.6-1.1cm) LVPWd: 1.00 cm (0.6-1.1cm) LVIDd: 4.50 cm (3.9-5.9cm) LVIDs: 3.10 cm LV Mass Index: 75.0 g/m2 LV % FS 31.1 % LV SYSTOLIC FUNCTION BY 2D PLANIMETRY (MOD): Normal Ranges: EF-A4C View: 66.2 % (>55%) LV DIASTOLIC FUNCTION: Normal Ranges: MV Peak E: 0.91 m/s (0.7-1.2 m/s) MV Peak A: 0.66 m/s (0.42-0.7 m/s) E/A Ratio: 1.38 (1.0-2.2) MV lateral e' 0.13 m/s MV medial e' 0.09 m/s E/e' Ratio: 7.20 (<8.0) MITRAL VALVE: Normal Ranges: MV Vmax: 0.92 m/s (<1.3m/s) MV peak P.4 mmHg (<5mmHg) MV mean P.0 mmHg (<48mmHg) MITRAL INSUFFICIENCY: Normal Ranges: MR Vmax: 444.00 cm/s AORTIC VALVE: Normal Ranges: AoV Vmax: 1.85 m/s (<1.7m/s) AoV Peak P.7 mmHg (<20mmHg) AoV Mean P.0 mmHg (1.7-11.5mmHg) LVOT Max Humberto: 0.93 m/s (<1.1m/s) AoV VTI: 42.90 cm (18-25cm) LVOT VTI: 23.00 cm LVOT Diameter: 1.90 cm (1.8-2.4cm) AoV Area, VTI: 1.52 cm2 (2.5-5.5cm2) AoV Area,Vmax: 1.43 cm2 (2.5-4.5cm2) AoV Dimensionless Index: 0.54 TRICUSPID VALVE/RVSP: Normal Ranges: Peak TR Velocity: 2.54 m/s RV Syst Pressure: 28.8 mmHg (< 30mmHg) PULMONIC VALVE: Normal Ranges: PV Max Humberto: 1.0 m/s (0.6-0.9m/s) PV Max P.7 mmHg PIEDV: 1.67 m/s PADP: 14.2 mmHg [id number] Davey Flores MD Electronically signed on 04/05/2021 at 6:16:16 PM Final Normal [facility] VAS LAB Carotid Artery Dupl ex Ultrasounon 04-03-2021 [facility] Carotid Artery Duplex Ultrasoun [address], [address] [place] [address] Vascular Lab Report Carotid Artery Duplex Ultrasound Patient Name: GARTH OLGUIN Reading Physician: [id number] Neha Roman MD, [facility] Study Date: 04/03/2021 Referring Physician: [id number] LUL ROSE MRN/PID: [id number] PCP: Aurelia Quiroga Accession/Order#: [id number] CC Report to: Date of : 1950 Technologist: Orly New RDCS [facility] Gender: F Technologist 2: Admission Status: Outpatient Location Performed: [facility] Diagnosis/ICD: Z52-Kjltczmnw and giddiness; G45.9-Transient cerebral ischemic attack, unspecified Indication: CAD, TN and PTCA-2017, Hypercoagulable State, HTN, Hyperlipidemia, Former Smoker, Obesity Procedure/CPT: 04779 Cerebrovascular Carotid Duplex scan complete-[id number] CONCLUSIONS: Right Carotid: Findings are consistent with 50 to 69% stenosis of the right proximal ICA. Laminar flow seen by color Doppler. Right external carotid artery appears patent with no evidence of stenosis. No evidence of hemodynamically significant stenosis of the right common carotid artery. The right vertebral artery is patent with antegrade flow. Left Carotid: Findings are consistent with 50 to 69% stenosis of the left proximal ICA. Laminar flow seen by color Doppler. Left external carotid artery appears patent with no evidence of stenosis. No evidence of hemodynamically significant stenosis of the left common carotid artery. The left vertebral artery is patent with antegrade flow. Imaging AND Doppler Findings: Right Left PSV EDV PSV EDV 92 cm/s 20 cm/s CCA P 94 cm/s 17 cm/s 104 cm/s 23 cm/s CCA M 94 cm/s 17 cm/s 79 cm/s 20 cm/s CCA D 86 cm/s 18 cm/s 77 cm/s 19 cm/s ICA P 90 cm/s 22 cm/s 118 cm/s 38 cm/s ICA M 95 cm/s 27 cm/s 129 cm/s 39 cm/s ICA D 134 cm/s 42 cm/s 91 cm/s ECA 81 cm/s 41 cm/s Vertebral 57 cm/s Right Left ICA/CCA Ratio 1.0 1.1 [id number] Neha Roman MD, FACC Final Normal [facility] Calcium, Totalon 05-25-2019 Calcium [Mass/Vol] 8.6 mg/dL Normal 8.5-10.2 [facility] Comment on above: Result Comment: Kyle mmended reference range provided for this age range is published by the instrument sales and marketing vice president. Adult reference ranges have been verified. Performed By: #### C A #### [facility] [address] [place] [address] PROGRESSon 05-25-2019 PROGRESS HNO ID: [id number] Author: Antonietta (Roxy Buchanan Service: Vascular Surgery Author Type: Resident Type: Progress Notes Filed: 05/25/2019 7:02 AM Note Text: GENERAL SURGERY - PROGRESS NOTE Garth Olguin [id number] May 25, 2019 ASSESSMENT/PLAN: Garth Olguin is a 68 year old female, POD#1 s/p total thyroidectomy for toxic multinodular goiter. ? -ca supplementation discussed with patient -Synthroid this AM, pt instructed to continue this at home -continue diet -activity as tolerated -d/c home this AM INTERIM HISTORY: No acute events overnight. Tolerating diet with no N/V. Pain is controlled. Has been out of bed. OBJECTIVE: BP 149/51 Pulse (!) 50 Temp 36.7 ?C (98 ?F) (Oral) Resp 18 SpO2 95% General: AO, NAD Head: NCAT, neck is flat, no ecchymosis, no e/o hematoma Pulm: breathing comfortably on RA Ext: CAMERON Intake/Output Summary (Last 24 hours) at 05/25/2019 0701 Last data filed at 05/24/2019 1120 Gross per 24 hour Intake 1800 ml Output ? Net 1800 ml CBC, Coags, BMP, Mg, Phos Recent Labs 05/25/19 0301 CA 8.6 Antonietta Buchanan MD May 25, 2019 [id number] After 6pm and on weekends, please page General Surgery on-call Normal [facility] PTH, [place] 05-25-2019 PTH, Intact 3 pg/mL Low [facility] Comment on above: Performed By: #### P THI ####[facility] [place], [place] [phone] ANES Jordi 05-24-2019 ANES POST HNO ID: [id number] Author: Lupe Braswell) Onger Service: Anesthesiology Author Type: Anesthesiologist Type: Anesthesia PostOp Filed: 05/24/2019 12:41 PM Note Text: POST ANESTHESIA EVALUATION NOTE SERVICE DATE: 05/24/2019 SERVICE TIME: 12:40 PM : 1950 Vitals: 05/24/19 0746 05/24/19 1120 05/24/19 1130 05/24/19 1215 Temp: 36.7 ?C (98.1 ?F) 36.4 ?C (97.5 ?F) 36.4 ?C (97.5 ?F) 36.5 ?C (97.7 ?F) 05/24/19 1130 05/24/19 1145 05/24/19 1200 05/24/19 1215 BP: 165/77 171/66 146/68 178/72 05/24/19 1130 05/24/19 1145 05/24/19 1200 05/24/19 1215 Pulse: 63 60 (!) 56 (!) 55 05/24/19 1130 05/24/19 1145 05/24/19 1200 05/24/19 1215 Resp: 13 17 15 19 05/24/19 1130 05/24/19 1145 05/24/19 1200 05/24/19 1215 SpO2: 93% 90% 94% 98% Validated Vital Signs: Yes POST ANES STATUS: No apparent anesthetic complications. The patient is appropriately hydrated with stable respiratory and cardiovascular status. Patient has safe and adequate airway control. The patient has appropriate pain relief and no significant post operative nausea or vomiting. The patient has achieved baseline mental status. Intra-Operative Events: No Significant Anesthesia Events Further assessment by Anesthesia Service: None Other Remarks: SIGNATURE: LUPE COOK MD PATIENT NAME: Garth Olguin DATE: May 24, 2019 TIME: 12:39 PM PAGER/CONTACT #: [phone] [facility] ANES PREOPon 05-24-2019 ANES PREOP HNO ID: [id number] Author: Lupe Braswell) Costa Service: Anesthesiology Author Type: Anesthesiologist Type: Anesthesia PreOp Filed: 05/24/2019 8:43 AM Note Text: ANESTHESIOLOGY DAY OF SURGERY NOTE SERVICE DATE: 05/24/2019 SERVICE TIME: 8:41 AM : 1950 Procedure(s) (LRB): THYROIDECTOMY TOTAL (Bilateral) Surgeon(s): Geno Mitchell Estimated body mass index is 29.72 kg/m? as calculated from the following: Height as of 05/12/19: 165.7 cm (5' 5.25 ). Weight as of 05/12/19: 81.6 kg (180 lb). Most recent hematocrit and potassium results: Hematocrit 42.8 05/12/2019 Potassium 4.1 05/12/2019 ANES DOS/PREOP NOTE: Vitals: 05/24/19 0746 BP: 146/74 Pulse: (!) 53 Resp: 16 Temp: 36.7 ?C (98.1 ?F) TempSrc: Temporal SpO2: 98% ACTIVE PROBLEM LIST Multinodular Thyroid Hyperthyroidism Mesenteric Ischemia (Hcc) Primary Hypercoagulable State (Hcc) Coronary Artery Disease Involving [place] Without Angina Pectoris PAST MEDICAL HISTORY Diagnosis Date - CAD (coronary artery disease) - DDD (degenerative disc disease), lumbar - HTN (hypertension) - Hyperlipemia - Hyperthyroidism - Scoliosis PAST SURGICAL HISTORY Procedure Laterality Date - CC PTCA STENT 2016 x2 - KNEE SURGERY HX Left - LIGATE FALLOPIAN TUBE Tubal ligation - PAST SURGICAL HISTORY OF 05/2014 lumbar surgery - PAST SURGICAL HISTORY OF right ureter surgery - REMOVAL GALLBLADDER Cholecystectomy - REMOVAL OF TONSILS,<12 Y/O Tonsillectomy - VAGINAL HYSTERECTOMY Hysterectomy, vaginal FAMILY HISTORY Problem Relation Age of Onset - Emphysema Father - Heart disease Father - other (lung disease) Father - Cancer Mother - other (Cerebral aneurysm) Mother Social History: Social History Tobacco Use - Smoking status: Former Smoker Packs/day: 1.00 Years: 15.00 Pack years: 15.00 Types: Cigarettes Last attempt to quit: 1985 Years since quittin.6 - Smokeless tobacco: Never Used Substance Use Topics - Alcohol use: No - Drug use: No Comment: denies tx for drug/alcohol abuse in the past. No current facility-administered medications on file prior to encounter. Current Outpatient Medications on File Prior to Encounter: loratadine (CLARITIN) 10 mg tablet Take 10 mg by mouth as needed. Lactobacillus acidophilus (PROBIOTIC ORAL) Take by mouth. acetaminophen (TYLENOL ORAL) Take by mouth as needed. metHIMazole (TAPAZOLE) 5 mg tablet 1 AND 1/2 pills daily glucosamine HCl/chondroitin crum (GLUCOSAMINE-CHONDROITIN ORAL) Take by mouth. ubidecarenone Q-10 (CO Q-10) 10 mg cap Take by mouth twice daily. atorvastatin (LIPITOR) 20 mg tablet Take 20 mg by mouth. 3 x a week BABY ASPIRIN ORAL Take by mouth. busPIRone (BUSPAR) 5 mg tablet as needed metoprolol tartrate, short acting, (LOPRESSOR) 25 mg tablet Take 0.5 tablets by mouth twice daily. MULTIVITAMIN TAB Take one(1) tablet daily. CALTRATE 600 1,500 (600) MG TAB Take one(1) tablet daily. Current Facility-Administered Medications Medication Dose Route Frequency Provider Last Rate Last Dose - lactated ringers infusion 75 mL/hr INTRAVENOUS CONTINUOUS Geno Mitchell Allergies: ALLERGIES Allergen Reactions - Ciprofloxacin Other: See Comments Causes Tendon problems - Nickel Rash DOS EXAM: Adequate NPO Status: Yes Anesthetic Risks, Benefits, Alternatives, Personnel and Consent Discussed: Yes Patient agrees to proceed: Yes Previous Anesthesia: hx of PONV Airway Assessment: MP 2; Neck ROM: Full ROM without neurologic symptoms; Airway Evaluation: No significant abnormalities Symptoms of Sleep Apnea: Snoring, Hypertension and Age over 50 (68 year old) Dentition: Teeth intact Additional Physical Exam: Lungs: Lungs clear to auscultation. Good diaphragmatic excursion. Cardiac: normal S1 and S2; no rubs, no murmurs, and no gallops Additional Pertinent Findings: N/A Blood Products: Will accept Blood/Blood Products Anesthetic Plan: General Anesthetic Monitoring: Standard ASA Monitors Pain Management Plan: Parenteral or Oral ASA Class: 3 Other Medical Problems: None Chronic Beta Rosette medication administered within 24 hours: Yes I have interviewed and examined the patient. I have reviewed the medical record and/or the pre-anesthesia evaluation, pertinent labs, and test results. Significant changes in the patient's condition since the History and Physical, not otherwise documented in primary service progress notes: No This contains updated information obtained within 48 hours of Surgery/Procedure. SIGNATURE: LUPE COOK MD PATIENT NAME: Garth Olguin DATE: May 24, 2019 TIME: 8:41 AM CSN: [id number] [facility] [place] NURSING PROGon 05-24-2019 NURSING PROG HNO ID: [id number] Author: Dolores Ford (Rn) KARLENE Redding Service: ? Author Type: Registered Nurse Type: Nursing Progress Note Filed: 05/25/2019 6:33 AM Note Text: Nursing Progress Note Patient Name: Garth Olguin Patient Location: [id number] Daily Note:assumed pt care, pt awake, oriented x3 c/o throat sore, tolerable per pt previously medicated. at bedside. No needs at this time. 0200 pt awake, denies pain, VS as charted, comfort maintained 0632 pt awake, c/o mild sore throat, tolerated 6a med. No needs at this time. This note was completed by: Dolores Redding RN [facility] [place] NURSING PROG HNO ID: [id number] Author: Yari HarpRnAbebe Roth RN Service: ? Author Type: Registered Nurse Type: Nursing Progress Note Filed: 05/24/2019 1:46 PM Note Text: Nursing Progress Note Patient Name: Garth Olguin Patient Location: MM Surgery/MM Surgery 1120: Received from OR. Restless. Scratching. Incision C/D/I. Denies c/o pain. Patient has backache, repositioned with multiple pillows. Attemp to contact receiving floor unsuccessful 1135: Discussing with Dr Cook and Jeramie, re BP, Nausea, and itching. 1148: Ezra on [address] updated that patient is out or OR. 1215: OK to transfer to [address]. Patient c/o back ache, head ache, minor sore throat. Refuses Tylenol tabs (or liquid), or Percocet. 1235: Bedside report with Ezra on [address]. Patient appears to be resting a little better at this time. Back and throat pain is tolerable 3-4/10. Incision C/D/I. No hematoma. This note was completed by: Yari Roth RN [facility] [place] NURSING PROG HNO ID: [id number] Author: Lizette HarpRnAbebe Ordaz RN Service: ? Author Type: Registered Nurse Type: Nursing Progress Note Filed: 05/24/2019 7:30 AM Note Text: PRE OP LEARNING ASSESSMENT PROCEDURE/SURGERY: SURGERY: READINESS TO LEARN COGNITIVE ABILITY: Alert and oriented MOTIVATION TO LEARN: Eager FAMILY SUPPORT: None - Unavailable/disinterested PATIENT LEARNS BEST BY: Individual Instruction FACTORS AFFECTING LEARNING: None PHYSICAL LIMITATIONS AFFECTING LEARNING: None Electronically Signed By: Lizette Ordaz RN In Department: [facility] SURGERY Nursing Progress Note Patient Name: Garth Olguin Patient Location: MM Surgery/MM Surgery Daily Note: This note was completed by: Lizette Ordaz RN [facility] [place] OPERATIVE NOon 05-24-2019 OPERATIVE NO HNO ID: [id number] Author: Geno Mitchell Service: Endocrine Surgery Author Type: Physician Type: Operative Report Filed: 05/25/2019 7:35 AM Note Text: [facility] - Operative Report GARTH OLGUIN : 1950 AGE: 68. SEX: F PATIENT TYPE: A [facility] [place] LOCATION: [facility] ATTENDING PHYSICIAN: Geno Mitchell MD CSN NUMBER: [id number] DATE OF SURGERY/PROCEDURE: 05/24/2019 INCISION/PROCEDURE START TIME: 09:34 a.m. INCISION CLOSE/PROCEDURE END TIME: 11:12 a.m. PREOPERATIVE DIAGNOSIS: Substernal goiter, hyperthyroidism. POSTOPERATIVE DIAGNOSIS: Substernal goiter, hyperthyroidism. SURGEON: Geno Mitchell MD INVESTIGATION LIEUTENANT: 1. Naila Sparks MD. 2. Richa Ngo MD. SURGERY/PROCEDURE: Total thyroidectomy, intraoperative neck ultrasound. ANESTHESIA: General. OPERATIVE INDICATION: The patient is a 68-year-old female with hyperthyroidism and an enlarged substernal goiter. She is being taken to the operating room for a total thyroidectomy. The indications, risks, benefits, and alternatives of the above procedures were reviewed with the patient, who gave informed consent to proceed. PREOPERATIVE FINDINGS: Intraoperative neck ultrasound revealed a thyroid that was enlarged with a heterogeneous echogenicity. There were several cystic areas with a possible 3 cm nodule in the left thyroid gland. The thyroid gland did not have increased vascularity. The inferior aspect of the left thyroid gland could not be completely imaged. No abnormal central or jugular lymphadenopathy was appreciated on ultrasound. The images were archived. A bilateral neck exploration was performed. A total thyroidectomy was performed and sent to Pathology as 1 specimen. The substernal component of the left thyroid gland was easily pulled up into the neck. Both recurrent laryngeal nerves were clearly seen in their normal path in tracheoesophageal groove. They were of small caliber in size and fully protected along their visible path. The upper parathyroid glands were identified and preserved. There was no abnormal cervical lymphadenopathy. The patient tolerated the procedure well. DESCRIPTION OF PROCEDURE: The patient was taken to the operating room and placed supine on the operating table. General anesthesia was achieved. The neck was gently hyperextended with the use of a beanbag, elevating the thoracic spine. An AlElectroCore ultrasound machine with a small parts transducer was used to perform bilateral neck ultrasound with the findings as noted above. The neck was prepped and draped in the usual sterile fashion. A 5?cm incision was made low in the neck. This was deepened through the subcutaneous tissue and platysma with electrocautery. An inferior and superior subplatysmal plane was developed, and the thyroid retractor was positioned into place. The midline raphe of the strap muscles was divided from the thyroid cartilage to the sternal notch. The space between the strap muscles and between the muscle and the thyroid was gently loosened, allowing these muscles to be retracted laterally. 3-0 silk ties and harmonic ultrasonic dissector were used throughout the case as appropriate for ligation of vasculature and tissues. The dissection started on the left side, and identical technical steps were used to perform bilateral lobectomy. The middle thyroid vein, capsular branches of superior thyroid vessels, and inferior vessels entering the lower pole were all ligated, allowing the lobe to be retracted medially. Clearly identified on each side were the recurrent laryngeal nerves. Their trajectory was kept in direct view at all times while ligaments of Elder and parathyroid glands were ligated well away from their path. The remaining attachments between the thyroid and trachea were divided with electrocautery. Both sides of the neck were then copiously irrigated, and hemostasis was achieved. The strap muscles were then closed in the midline with individual layers of interrupted 4-0 Vicryl suture. The platysma was approximated with interrupted 4-0 Vicryl sutures. The skin was closed with a 4-0 monocryl?subcuticular suture. The skin was sealed with an adhesive and steristrips. The patient tolerated the procedure well without any complications. ?? Dr. Mitchell served as primary surgeon and scrubbed from skin incision to completion?of skin closure. There was no qualified resident available to help with this case, and Dr. Sparks?was asked to serve as first assistant manager. During the course of the dissection, the first assistant manager assisted with thyroid mobilization, vascular isolation, and division. ESTIMATED BLOOD LOSS: Minimal. DRAINS: None. SPECIMENS: Sent to Pathology, total thyroid. COUNTS: Sponge and needle counts were correct. COMPLICATIONS: There were no intraoperative complications. Geno Mitchell MD JS:[id number] /[id number] cc: [facility] PROGRESSon 05-24-2019 PROGRESS HNO ID: [id number] Author: Richa Koenig (Deedee) MD Huber Service: General Surgery Author Type: Resident Type: Progress Notes Filed: 05/24/2019 1:30 PM Note Text: ENDOCRINE SURGERY POST OP CHECK ASSESSMENT AND PLAN Garth Olguin is a 68 year old female, POD#0 s/p total thyroidectomy for toxic multinodular goiter. Hemodynamically stable with adequate pain control -routine post op care -ca supplementation -labs in AM -Synthroid in AM -anticipate d/c home in AM SUBJECTIVE/INTERVAL EVENTS No acute events no hypocalcemia sx Voice slightly sore Pain control adequate OBJECTIVE BP 170/56 Pulse (!) 47 Temp 36.4 ?C (97.6 ?F) (Oral) Resp 18 SpO2 95% General: NAD, resting in bed CV: RRR, extremities wwp Pulm: nonlabored breathing, symmetrical rise, no stridor Neck: incision c/d/I. Soft, flat Neuro: moves all 4 extremities, no focal deficits Richa Ngo MD PGY1 General Surgery Pager: [phone] *After 6pm and on weekends please page general surgery sap plant maintenance consultant * [facility] SURGICAL PATHOLOGYon 019 SURGICAL PATHOLOGY Specimen #: [id number] Submitting Physician: GENO MITCHELL MD FINAL DIAGNOSIS Thyroid, total thyroidectomy: - Benign multinodular follicular hyperplasia. - No parathyroid gland tissue seen. DANIEL/MKA/db 05/26/2019 Claudia Herrera MD (Electronic Signature) SPECIMEN SUBMITTED A: TOTAL THYROID - TIE RIGHT LOBE CLINICAL DATA MULTINODULAR GOITER; TOTAL THYROIDECTOMY GROSS DESCRIPTION A. Received in formalin labeled total thyroid is a 134.4 gram, 10.0 x 9.5 x 4.9 cm total thyroidectomy specimen. The left lobe measures 8.1 x 5.0 x 4.5 cm, the isthmus measures 3.5 x 3.0 x 2.0 cm, and the right lobe measures 8.2 x 4.5 x 4.5 cm. The outer surface is markedly irregular and multifocally disrupted, exhibiting a multinodular appearance. The outer surface of the specimen is carefully inked black. Sectioning reveals robert-brown, diffusely multinodular cut surfaces involving both lobes and the isthmus with brown, bulging, ill-defined nodules measuring 0.2 to 3.5 cm in greatest dimension. No discrete or solid nodules are identified. Instructional Technology Coach sections are submitted as follows: A1-A6 left lobe from superior to inferior, A7-A8 isthmus from left to right, A9-A14 right lobe from superior to inferior. Gross examination performed at [facility], [address] [place] [address]/bruce 05/25/2019 Date of Report: 05/27/2019 Date of Procedure: 05/24/2019 Date of Receipt: 05/24/2019 Submitted by: GENO MITCHELL MD Location: [id number] Diagnostic interpretation performed at [facility], [address] [place] [address]. [place] Number: [id number] [facility] [place] NURSING PROGon 05-13-2019 NURSING PROG HNO ID: [id number] Author: Keli (Rn) KARLENE Cotton Service: ? Author Type: Registered Nurse Type: Nursing Progress Note Filed: 05/21/2019 9:40 AM Note Text: PACC Nurse Progress Note History AND Physical: PACC Visit Date: 05/12/19 Original HANDP Date: 05/12/19 ED visit Date: N/A Outside HANDP Scanned Date: N/A Labs Within Last 6 Months: CBC: Date 05/12/19 WNL BMP/CMP: Date 05/12/19 WNL Thyroid studies 05/12/19--results in chart Imaging Within Last 12 Months: See chart Cardiac Testing: EKG in last 12 Months:05/13/19, Comment:Marked sinus bradycardia (47bpm) Last Menstrual Period: LMP Date: N/A Postmenopausal >1yr: Yes, S/P Hysterectomy: Yes BMI Percentile (PEDS): N/A Risk Assessment: Copied from PACC note: CONSULTS: Cardiology Consult for cardiac clearance for history of PTCA on ASA . Sent to Dr[facility] at [facility] Anesthesia Review: N/A Narrative: N/A Pre-op Considerations: Hx of CAD on ASA 81mg. Chart Check: IN PROGRESS Keli Cotton RN May 13, 2019 3:23 PM May 21, 2019 8:53 AM Cardiac clearance per Dr. Rose and lakshmi to hold ASA 7 days pre-op 05/19/19 scanned in chart. Chart Check completed. Keli Cotton RN. [facility] HOSPon 04-27-2019 HOSP Patient:Katrin Olguin cca MRN: Height:5' 5.25 (1.657 m) Weight:180 lb (81.647 kg) Outpatient Medications as of 05/24/19: loratadine (CLARITIN) 10 mg tablet CANNABIDIOL, CBD, EXTRACT ORAL thiamine (VITAMIN B-1) 100 mg tablet Lactobacillus acidophilus (PROBIOTIC ORAL) acetaminophen (TYLENOL ORAL) metHIMazole (TAPAZOLE) 5 mg tablet glucosamine HCl/chondroitin crum (GLUCOSAMINE-CHONDROITIN ORAL) ubidecarenone Q-10 (CO Q-10) 10 mg cap atorvastatin (LIPITOR) 20 mg tablet BABY ASPIRIN ORAL busPIRone (BUSPAR) 5 mg tablet metoprolol tartrate, short acting, (LOPRESSOR) 25 mg tablet MULTIVITAMIN TAB CALTRATE 600 1,500 (600) MG TAB Admission/Clinic Administered Medications as of 05/24/19: lactated ringers infusion scopolamine 1 mg over 3 days 1 Patch (TRANSDERM-SCOP) scopolamine - VERIFY patch scopolamine - REMOVE PATCH Problem List: Multinodular thyroid [E04.2] Hyperthyroidism [E05.90] Mesenteric ischemia (HCC) [K55.9] Primary hypercoagulable state (HCC) [D68.59] Coronary artery disease involving ivanof bay heart without angina pectoris [I25.10] Allergies: Ciprofloxacin Nickel Date Verified: 05/24/19 Lab Values Lab Value Units Date High Low POTA* 4.1 mmol/L 05/12/2019 5.1 3.7 ALVARADO* 42.8 % 05/12/2019 46.0 36.0 Progress Notes (ENDO SURG MAIN): Lizzy Sanabria, RN, RN 05/19/2019 9:[address] Rose's office and spoke with Karla. She is going to give letter for clearance to Dr. Rose to clear today and fax back to Marva Russ APRN CNP. Lizzy Sanabria RN Progress Notes (PRE ANES [place]): Marva Russ APRN.SHANK SORTER 05/19/2019 8:43 AM Signed Please contact Dr. Milton Omer to get Cardiac and Coag Clearance. I have sent multiple clearance letters and have not received anything for him, patient is scheduled 05/24 Keli Cotton RN, RN 05/19/2019 9:[address] Rose's office at [phone] and left VM on nurses line requesting cardiac/anticoagualtion clearance letter. Left phone number to reach resource RN with questions and provided direct fax number to send letter. Keli Cotton RN Previous Version [facility] Progress Noteon 07-23-2018 HIM IP Note OR Analysis Evaluator Normal [facility] HIM IP Note OR Analysis Evaluator [facility] Progress Noteon 06-18-2018 HIM IP Note OR Analysis Evaluator [facility] Basic Metab w/rfx MGon 06-03 (cont.) [facility] Comment on above: Result Comment: Aver age GFR for 60-69 years old: 85 mL/min/1.73sq mChronic Kidney Disease: <60 mL/min/1.73sq mKidney failure: <15 mL/min/1.73sq meGFR calculated using average adult body mass. Additional eGFR calculator available at:http://www.NetIQ.[employer]/multiple_crcl_2012.htm Performed By: #### LEE Brannon ####[facility] [address] [place] [address] Anion gap 3 molar conc 12 mmol/L Normal 9-17 [facility] Comment on above: Performed By: #### LEE Brannon ####[facility] [address] [place] [address] Calcium mass conc 8.4 mg/dL Low 8.6-10.4 [facility] Comment on above: Performed By: #### LEE Brannon ####[facility] [address] [place] [address] Chloride molar conc 102 mmol/L Normal 98-107 [facility] Comment on above: Performed By: #### LEE Brannon ####[facility] [address] [place] [address] CO2 molar conc 21 mmol/L Normal 20-31 [facility] Comment on above: Performed By: #### LEE Brannon ####[facility] [address] [place] [address] Creatinine mass conc 0.62 mg/dL Normal 0.50-0.90 [facility] Comment on above: Performed By: #### U LEE Diane ####[facility] [address] [place] [address] GFR, Amer >60 Normal >60 [facility] Comment on above: Performed By: #### U STEFFANIE DianeO ####[facility] [address] [place] [address] GFR,non Amer >60 Normal >60 [facility] Comment on above: Performed By: #### LEE Brannon ####[facility] [address] [place] [address] Glucose mass conc 143 mg/dL High 70-99 [facility] Comment on above: Performed By: #### LEE Brannon ####[facility] [address] [place] [address] Potassium molar conc 3.9 mmol/L Normal 3.7-5.3 [facility] Comment on above: Performed By: #### LEE Brannon ####[facility] [address] [place] [address] Sodium molar conc 135 mmol/L Normal 135-144 [facility] Comment on above: Performed By: #### LEE Brannon ####[facility] [address] [place] [address] Urea nitrogen mass conc 5 mg/dL Low 8-23 [facility] Comment on above: Performed By: #### LEE Brannon ####[facility] [address] [place] [address] BUN/CRE Ratio NOT REPORTED Normal 9-20 [facility] Comment on above: Performed By: #### LEE Brannon ####[facility] [address] [place] [address] Staging: NOT REPORTED Normal [facility] Comment on above: Performed By: #### LEE Brannon ####[facility] [address] [place] [address] CBC with Diffon 06-03-2018 Abs. Basophil <0.03 Normal 0.00-0.20 [facility] Comment on above: Performed By: #### U LEE Diane ####[facility] [address] [place] [address] Abs.Imm.Granulocyte 0.05 k/uL Normal 0.00-0.30 [facility] Comment on above: Performed By: #### LEE Brannon ####[address] [address] Abs.Neutrophil (Seg) 11.45 k/uL High 1.50-8.10 [facility] Comment on above: Performed By: #### LEE Brannon ####[address] [address] Basophils/100 WBC Auto (Bld) 0 % Normal 0-2 [facility] Comment on above: Performed By: #### LEE Brannon ####[address] [address] Eosinophils Auto #/vol (Bld) 10*3/uL Normal 0.00-0.44 [facility] Comment on above: Performed By: #### LEE Brannon ####[address] [address] Eosinophils/100 WBC Auto (Bld) 0 % Low 1-4 [facility] Comment on above: Performed By: #### LEE Brannon ####[address] [address] Erythrocyte distribution width Auto Ratio (RBC) 12.3 % Normal 11.8-14.4 [facility] Comment on above: Performed By: #### LEE Brannon ####[address] [address] Hematocrit Auto Volume Fraction (Bld) 35.2 % Low 36.3-47.1 [facility] Comment on above: Performed By: #### U LEE Diane ####[address] [address] Hemoglobin mass conc (Bld) 11.4 g/dL Low 11.9-15.1 [facility] Comment on above: Performed By: #### LEE Brannon ####[address] [place] [address] Immature granulocytes #/vol (Bld) 0 % Normal 0 [facility] Comment on above: Performed By: #### LEE Brannon ####[address] [address] Lymphocytes Auto #/vol (Bld) 1.45 10*3/uL Normal 1.10-3.70 [facility] Comment on above: Performed By: #### LEE Brannon ####[address] [address] Lymphocytes/100 WBC Auto (Bld) 10 % Low 24-43 [facility] Comment on above: Performed By: #### LEE Brannon ####[address] [address] MCH Auto Entitic mass (RBC) 31.5 pg Normal 25.2-33.5 [facility] Comment on above: Performed By: #### LEE Brannon ####[address] [place] [address] MCHC Auto mass conc (RBC) 32.4 g/dL Normal 28.4-34.8 [facility] Comment on above: Performed By: #### LEE Brannon ####[facility] [address] [place] [address] MCV Auto Entitic volume (RBC) 97.2 fL Normal 82.6-102.9 [facility] Comment on above: Performed By: #### U LEE Diane ####[address] [address] Monocytes Auto #/vol (Bld) 1.47 10*3/uL High 0.10-1.20 [facility] Comment on above: Performed By: #### LEE Brannon ####[address] [address] Monocytes/100 WBC Auto (Bld) 10 % Normal 3-12 [facility] Comment on above: Performed By: #### LEE Brannon ####[address] [address] Neutrophil (Seg) 80 % High 36-65 [facility] Comment on above: Performed By: #### LEE Brannon ####[address] [address] NRBC Automated 0.0 per 100 WBC Normal 0.0 [facility] Comment on above: Performed By: #### LEE Brannon ####[address] [address] Platelet mean volume Auto Entitic volume (Bld) 10.8 fL Normal 8.1-13.5 [facility] Comment on above: Performed By: #### LEE Brannon ####[address] [address] Platelets Auto #/vol (Bld) 164 10*3/uL Normal 138-453 [facility] Comment on above: Performed By: #### LEE Brannon ####[address] [address] RBC Auto #/vol (Bld) 3.62 10*6/uL Low 3.95-5.11 [facility] Comment on above: Performed By: #### LEE Brannon ####[address] [address] WBC Auto #/vol (Bld) 14.4 10*3/uL High 3.5-11.3 [facility] Comment on above: Performed By: #### LEE Brannon ####[facility] [address] [place] [address] Auto Diff Performed NOT REPORTED Normal [facility] Comment on above: Performed By: #### LEE Brannon ####[address] [place] [address] Platelets Auto #/vol (Bld) NOT REPORTED Normal [facility] Comment on above: Performed By: #### LEE Brannon ####[address] [place] [address] RBC morphology finding Nom (Bld) NOT REPORTED Normal [facility] Comment on above: Performed By: #### LEE Brannon ####[address] [address] WBC Morphology NOT REPORTED Normal [facility] Comment on above: Performed By: #### LEE Brannon ####[address] [place] [address] Cult,Urineon 06-03-2018 Cult,Urine Specimen Description .CATHETERIZED URINE INSERTION Special Requests NOT REPORTED Culture NO GROWTH Report Status FINAL 06/03/2018 [facility] Comment on above: Performed By: #### LEE Brannon ####[facility] [address] [place] [address] Cult,Urine,Cathon 06-03-2018 Cult,Urine,Cath Specimen Description .CATHETERIZED URINE [place] ROS[place]O INSERTION Special Requests NOT REPORTED Culture NO GROWTH Report Status FINAL 06/03/2018 [facility] Comment on above: Performed By: #### C DP, CP, CA125 ####[address] [address] Plan of Careon 06-03-2018 HIM IP Note OR Analysis Evaluator Normal [facility] Progress Noteon 06-03-2018 HIM IP Note OR Analysis Evaluator Normal [facility] Discharge Summaryon 06-02-20 18 HIM IP Note OR Analysis Evaluator Normal [facility] Histology [facility] 06-02 Histology [facility] (NOTE)[id number] CY LABORATORIESCONSULTING PATHOLOGISTS CORPORATIONANATOMIC [address] [place], [place] [address] Fax: NONGYNECOLOGICAL CYTOPATHOLOGY CONSULTATIONPatient Name: [facility] Rec: [id number] Number: [id number]: 06/02/2018Received: 06/02/2018Reported: 06/03/2018 10:08-- Diagnosis --PELVIC WASHINGS: NEGATIVE FOR MALIGNANCY. Faisal Gregory,Electronically Signed Out sls/06/03/2018Clinical InformationEndometrial cancer.Source of Specimen1: PELVIC WASHINGSGross Description PELVIC WASHING 45.0 ml. colorless cloudy fluid.MICROSCOPIC DESCRIPTION Microscopic examination performed. Normal [facility] Comment on above: Performed By: #### C DP, CP, CA125 ####[facility] [address] [place] [address] [phone] History and Physicalon 06-02 HIM IP Note OR Analysis Evaluator Normal [facility] Non-Casting Cleaner Cytologyon 8 Case No: [id number] Normal [facility] Comment on above: Performed By: #### N MLT ####[facility] [address] [place] [address] [phone] Specimen Description .PELVIC WASHINGS Normal [facility] Comment on above: Performed By: #### N MLT ####[facility] [address] [place] [address] [phone] OPERATIVE REPORTon 8 OPERATIVE REPORT [facility] [address] [place] [address] OPERATIVE REPORTPATIENT NAME: GARTH OLGUIN : 1950MED REC NO: [id number] ROOM: [id number] NO: [id number] ADMIT DATE: 06/02/2018PROVIDER: Bailey Mendez MDDATE OF PROCEDURE: 06/02/2018PREOPERATIVE DIAGNOSIS: Endometrial adenocarcinoma.POSTOPERAT THONG DIAGNOSES: Endometrial adenocarcinoma, extensive abdominaland pelvic adhesions.OPERATIONS: Robotic-modified radical hysterectomy, bilateralsalpingo-oophore ctomies, peritoneal washings for cytology, sentinel lymphnode mapping, right sentinel lymph node biopsies, and left external iliaclymph node dissection.SURGEON: Bailey Mendez MDASSISTANT: Pieter Ignacio, DOANESTHESIA: General.ESTIMATED BLOOD LOSS: 50 mL.BLOOD PRODUCTS GIVEN: None.PACKS: None.DRAINS: There were no wound drains.LINES: There was a peripheral IV of lactated Ringer's during theprocedure.ROSADO: There was a Rosado catheter to straight drain during the procedure.SCDs: There were SCDs to the lower extremities during the procedure.BRIEF HISTORY AND INDICATION FOR OPERATION: This patient is a 67-year-old, 4, para 4, female who presented with postmenopausal spotting and anendometrial biopsy revealed a grade 1 endometrioid, adenocarcinoma of theendometrium.The patient was referred to Gynecologic-Oncology at [facility].She was advised to have a robotic-modified radical hysterectomy, etc., ifcleared by her medical physician and geoscientist. The patient had been onPlavix and aspirin for double coronary artery bypass stenting. She wascleared. The remainder of her metastatic workup was negative, and thepatient was prepped and taken to the operating room on 06/02/2018.DESCRIPTION OF OPERATIVE PROCEDURE: The patient was given generalanesthesia and was placed in the dorsal lithotomy position initially. Pelvic examination revealed a small mobile uterus and a multiparous cervix.The uterus was sounded to 8 cm and was then gently dilated up. Amedium-sized VCare uterine manipulator was chosen and was placed; however,prior to placing, the patient's cervix was injected at 9 o'clock and 3o'clock with 2 mL of ICG dye in a mixture of saline 20:1. This was forsentinel lymph node mapping.After placing the VCare manipulator, the abdominal portion of the procedurewas performed. A Veress needle was placed in the lower portion of theumbilicus, and a pneumoperitoneum was created with CO2. All port siteswere injected with a mixture of Exparel and 0.25% bupivacaine in a 50:50mixture. A 5-mm port was then placed through the infraumbilical area usingdirect camera guidance. The abdomen was free anteriorly. All peritonealsurfaces were smooth including the right and left gutters, the right andleft hemidiaphragm. The right and left lobes of the liver appeared normal,as did the omentum. The large and small bowel were normal. Appendixappeared normal. There was no evidence of metastatic disease. The patientdid have extensive adhesions of the appendix and cecum to the right pelvicsidewall and extensive adhesions in the pelvis as well. The patient hadhad a previous stenosis of the right ureter because of retroperitonealfibrosis. Despite attempts to save the ureter by several urologists, itwas necessary to reimplant her right ureter into the dome of the bladder. The ureter was adherent to the right ovarian vascular bundle and fallopiantube, etc. This was taken down without difficulty. On the left side, thepatient had adhesions of the omentum to the anterior abdominal wall andleft pelvic sidewall, and these adhesions were taken down as well. Thesigmoid was also adherent in the pelvis.The patient had previous tubal ligation, and therefore it was necessary toclip the tubes. Peritoneal washings were then performed by flushing withnormal saline and collecting this for cytologic evaluation.After lysing the adhesions, we opened up the pelvic sidewalls in order toidentify all the retroperitoneal structures including the common externaland internal iliac arteries and their respective veins. The ureter wasnoted on the left to course along the medial flap of the peritoneum. Onthe right, it coursed into the dome of the bladder. We then dissected downthe internal iliac artery and isolated the uterine arteries and theumbilical arteries and superior vesical arteries, obturator arteries, etc. We isolated the uterine arteries on both sides, and these were heavilycauterized with the [place] bipolar forceps.The patient had extensive tortuosity in the pelvic arteries, particularlyon the left side.On the left side, we did not see sentinel lymph nodes and thereforeperformed an external iliac dissection. The lymph nodes were scanty. Nonewere enlarged. The left genitofemoral nerve was cut in the process, and itwas reapproximated with 5-0 Prolene. On the right side, we had extensiveretroperitoneal fibrosis and adhesions, and dissection was quite difficult,but we were able to remove a lower obturator sentinel lymph node andseveral external iliac lymph nodes.This was performed with little blood loss.We were finally able to free the right ovarian vascular bundle, and thiswas heavily cauterized with [place] bipolar forceps. The same procedurewas performed on the left side and will therefore not be repeated here inits entirety. We were able to take down both anterior and posterior leavesof the broad ligament and skeletonize the cardinal ligaments. We cutacross the vesicouterine peritoneum and dissected the bladder off theanterior cervix and vagina with blunt and sharp dissection.We entered the vagina posteriorly at 6 o'clock initially and then later at12 o'clock in order to orient ourselves. The cardinal ligaments were thencauterized and cut, the blood vessels in this area, particularly theuterine veins, were quite large. These were eventually cut down to theuterosacral ligaments, which were then cut. We used monopolar scissors tocut around the VCare using it as a guide. It was completely freed. Thespecimen was then removed through the vagina in an en bloc fashion and thisincluded the cervix, uterus, tubes, ovaries, etc.We then removed the lymph nodes as mentioned above. Proximal and distallymphatic channels were cauterized.We closed the vagina with interrupted bgynor-jv-uwypy sutures of #1 Vicryland centrally we used a V-Loc in a running non-locking fashion. Theabdomen and pelvis were lavaged copiously with normal saline and found jennifer hemostatic. At this point, we re-placed the sigmoid colon into thepelvis over the raw surface.The AirSeal trocar was the only one that needed to be closed and was a12-mm trocar and was closed with interrupted #1 Vicryl. Port sites wereirrigated. These included 3 robotic arm ports as well as a 5-mm assistantport in the right upper quadrant and the AirSeal port with Betadine andsaline solution. Subcuticular closure with 4-0 Monocryl. Dermabond wasplaced on the skin as a sealant and dressing.The patient tolerated surgery and anesthesia well and was taken to therecovery room in satisfactory condition. Again, the blood loss was about50 mL.BAILEY MENDEZ, MDD: 06/02/2018 12:30:58 KETURAH/[id number]_TJob#: [id number] Doc#: [id number]: Normal [facility] Op Noteon 06-02-2018 HIM IP Note OR Analysis Evaluator [facility] Plan of Careon 06-02-2018 HIM IP Note OR Analysis Evaluator [facility] Progress Noteon 06-02-2018 HIM IP Note OR Analysis Evaluator [facility] HIM IP Note OR Analysis Evaluator [facility] HIM IP Note OR Analysis Evaluator [facility] Surgical Pathologyon [facility] Surgical Pathology (NOTE)[id number] LABORATORIESCONSULTING PATHOLOGISTS CORPORATIONANATOMIC [id number] [place], [place] [id number] Fax: SURGICAL PATHOLOGY CONSULTATIONPatient Name: [facility] Rec: [id number] Number: [id number]: 06/02/2018Received: 06/02/2018Reported: 06/03/2018 15:50-- Diagnosis --1. RIGHT EXTERNAL ILIAC SENTINEL LYMPH NODES, EXCISIONAL BIOPSIES:- NEGATIVE FOR MALIGNANCY (0/2).2. RIGHT OBTURATOR SENTINEL LYMPH NODE, EXCISIONAL BIOPSY:- NEGATIVE FOR MALIGNANCY (0/1).3. CERVIX, UTERUS, BILATERAL FALLOPIAN TUBES AND OVARIES,HYSTERECTOMY WITH BILATERAL SALPINGO-OOPHORECTOMY:CER VIX:- MINIMAL CHRONIC CERVICITIS.- SMALL NABOTHIAN CYSTS.- NEGATIVE FOR NEOPLASM.UTERUS:- ENDOMETRIOID ADENOCARCINOMA, FIGO GRADE 1, 2.5 CM, WITH FOCALSUPERFICIAL MYOMETRIAL INVASION (0.15 CM DEPTH OF INVASION, 9% OF THEMYOMETRIAL THICKNESS).- THE SURGICAL MARGINS ARE NEGATIVE FOR NEOPLASM.BILATERAL FALLOPIAN TUBES AND OVARIES:- NEGATIVE FOR NEOPLASM.4. LEFT EXTERNAL ILIAC LYMPH NODES, EXCISIONAL BIOPSIES:- NEGATIVE FOR MALIGNANCY (0/2).-- Diagnosis Comment --THE SENTINEL LYMPH NODES (SPECIMENS 1 AND 2) WERE EVALUATED WITHPANCYTOKERATIN IMMUNOSTAIN (CONTROL APPROPRIATE) WHICH IS NEGATIVE FORMETASTATIC CARCINOMA. THE RESULT OF THE MMR ANALYSIS WILL FOLLOW IN ASEPARATE REPORT.Faisal Gregory,Electronically Signed Out /06/03/2018Procedures/A ddendaADDENDUM AFTER SPECIAL STAINS Date Ordered: 06/11/2018 Status: Signed Out Date Complete: 06/11/2018 By: Faisal Gregory M.D. Date Reported: 06/11/2018 INTERPRETATIONBLOCK 3I WAS SENT TO [facility] FOR MISMATCH REPAIR BYIMMUNOHISTOCHEMISTRY WITH REFLEX TO MLH1 PROMOTER METHYLATION TESTING.THE RESULTS ARE FOLLOWS:MISMATCH REPAIR BY IHC RESULT: NORMAL MISMATCH REPAIR BY IHC WITH MLH1:NORMALMISMATCH REPAIR BY IHC WITH MSH2:NORMALMISMATCH REPAIR BY IHC WITH MSH6:NORMALMISMATCH REPAIR BY IHC WITH PMS2:NORMALPLEASE SEE [facility] COMPLETE REPORT FOR DETAILS. Faisal Gregory M.D. Clinical InformationPre-op Diagnosis: ENDOMETRIAL CANCER Operative Findings: RIGHT EXTERNAL ILIAC SENTINEL LYMPH NODES BX;RIGHT OBTURATOR SENTINEL LYMPH NODE BX; UTERUS, CERVIX, BILATERALFALLOPIAN TUBES AND BILATERAL OVARIES BX; LEFT EXTERNAL ILIAC LYMPHNODES BX Operation Performed: XI ROBOTIC MODIFIED RADICAL HYSTERECTOMY, BSO,CYTOLOGIC WASHING, SENTINEL LYMPH NODE MAPPING AND BIOPSIES Source of Specimen1: RIGHT EXTERNAL ILIAC SENTINEL LYMPH NODES (B)2: RIGHT OBTURATOR SENTINEL LYMPH NODE (C)3: UTERUS, CERVIX, BILATERAL FALLOPIAN TUBES AND BILATERAL OVARIES (D)4: LEFT EXTERNAL ILIAC LYMPH NODES (E)Gross Description1. GARTH SHARIF, RIGHT EXTERNAL ILIAC SENTINEL LYMPH NODES A 5.0cm portion of fat, within which are two rubbery nodes, 1.0 x 0.4 x 0.2cm and 1.7 x 0.7 x 0.3 cm. Entirely in 1cs (two nodes).2. GARTH SHARIF, RIGHT OBTURATOR SENTINEL LYMPH NODE A 0.6 x 0.5x 0.3 cm fatty node. Bisected, 1cs. 3. GARTH SWANDER, CERVIX, UTERUS, BILATERAL FALLOPIAN TUBES ANDBILATERAL OVARIES Uterus with attached cervix and bilateral adnexa.Dimensions: Uterus and cervix 8.5 x 6.1 x 3.5 cm.Weight: Uterus and cervix 68 grams, left tube and ovary 7 grams,right tube and ovary 5 grams.Serosa: Atlantis-robert with anterior aspect inked blue and posterior black.Cervix: 4.8 x 4.2 x 3.6 cm, unremarkable with a patent os.Endometrium: The cavity is 4.8 x 2.1 cm with a pink-robert surface andon the anterior aspect, there is a 2.5 x 1.2 x 0.5 cm exophytic masslesion on the left lateral side. The mass is 5 cm from the externalos and extends into the myometrium to a depth of approximately 0.1 cm(inner half), coming within 1.5 cm of the serosal surface. Theremaining endometrium is pink-robert and 0.1 cm in thickness.Myometrium: The myometrium has a maximum thickness of 1.6 cm and isfocally finely trabecular.Tubes/ovaries: The left fimbriated fallopian tube is in two segmentsand at each end there are clips. The proximal segment is 0.9 cm longx 0.4 cm diameter with an unremarkable lumen, and the distal segmentis 3.5 cm long x 0.5 cm diameter with an unremarkable lumen. The 1.5x 1.0 x 1.0 cm intact left ovary has a robert-yellow external surface. Sectioning reveals a mottled, robert cut surface with no masses. Theright fimbriated fallopian tube is in two segments. The proximalsegment is 0.5 cm long x 0.5 cm diameter with an unremarkable lumenand the distal segment is 4.0 cm long x 0.5 cm diameter with apurple-bunch serosa and an unremarkable lumen. The 1.5 x 1.0 x 1.0 cmintact left ovary has a robert-yellow external surface. Sectioningreveals a mottled, robert cut surface with no masses. The rightfimbriated fallopian tube is 4 cm long x 0.5 cm in diameter with apurple-bunch serosa and a grossly unremarkable lumen. The 1.4 x 1.3 x1.0 cm intact right ovary has a cerebriform robert-yellow externalsurface. Sectioning reveals a mottled, robert-yellow cut surface with nomasses.Cassette summary: A-B anterior cervix contiguous lower uterinesegment with ectocervical side inked red in B, E-E posterior cervixcontiguous lower uterine segment with ectocervical side inked red inD, E-F lesion in entirety, G-J uninvolved endomyometrium fullthickness, K-M left tube and ovary with tube in entirety, N-P right tube and ovary, tube in entirety.4. GARTH SHANTAANDER, LEFT EXTERNAL ILIAC LYMPH NODES A 5.0 x 1.5 x0.8 cm portion of fat within which are two nodes, 0.2 cm and 1.5 cm. Cassette summary: A-B one node each. as Microscopic Description1-4.PROCEDURE: Hysterectomy with bilateral salpingo-oophorectomy and lymphnode samplingTUMOR SIZE: 2.5 x 1.2 x 0.5 cmHISTOLOGIC TYPE: Endometrioid adenocarcinomaHISTOLOGIC GRADE (IF APPLICABLE): FIGO grade 1MYOMETRIAL TOTAL THICKNESS (CM): 1.6 cmMYOMETRIAL INVASION DEPTH (CM): 0.15 cm (early myometrial invasion, 9%of the myometrial thickness)MYOMETRIAL INVASION STATUS (< or >= 50%): Inner one halfUTERINE SEROSA INVOLVEMENT: Not identifiedCERVICAL STROMAL INVOLVEMENT/INVASION: Not identifiedOTHER TISSUE / ORGAN INVOLVEMENT (SPECIFY EACH): Not identifiedMARGINS: NegativeLYMPHOVASCULAR INVASION: Not identifiedREGIONAL LYMPH NODES EXAMINED: TOTAL OF ALL: 5-PELVIC, SENTINEL (NUMBER): RIGHT: N/A ; LEFT: N/A-PELVIC, SENTINEL + NON-SENTINEL (NUMBER): RIGHT: N/A ; LEFT: N/A -PARA-AORTIC, SENTINEL (NUMBER): RIGHT: N/A ; LEFT: N/A -PARA-AORTIC, SENTINEL + NON-SENTINEL (NUMBER): RIGHT: N/A ; LEFT: N/A -OTHER REGIONAL (SPECIFY LOCATION AND NUMBER): RIGHT: Rightexternal iliac [place] lymph nodes 72, right obturator [place] lymphnode; LEFT: Left external iliac lymph nodes 72LYMPH NODES POSITIVE (SPECIFY NUMBER AND SENTINEL OR NON-SENTINEL STATUS, IF PROVIDED): 0-PELVIC, MACROMETASTASIS (GREATER THAN 2 MM): RIGHT: N/A ; LEFT: N/A-PELVIC, MICROMETASTASIS (GREATER THAN 0.2 TO 2 MM): RIGHT:N/A ; LEFT: N/A -PELVIC, ISOLATED TUMOR CELLS (0.2 MM OR LESS): RIGHT: N/A ; LEFT: N/A -PARA-AORTIC, MACROMETASTASIS (GREATER THAN 2 MM): RIGHT: N/A ; LEFT: N/A -PARA-AORTIC, MICROMETASTASIS (GREATER THAN 0.2 TO 2 MM): RIGHT:N/A ; LEFT: N/J-KBEJ-[id number], ISOLATED TUMOR CELLS (0.2 MM OR LESS): RIGHT:N/A ; LEFT: N/ABIOMARKER TESTING: MMR analysis is pendingPATHOLOGIC STAGE CLASSIFICATION (pTNM [2015 FIGO]): pT1a pN0 [FIGO IA]From CAP March 2017 in conjunction with AJCC 8 ed. Normal [facility] Comment on above: Performed By: #### C TORRIE AGUILERA, CA125 ####[place] [address] CA 125on 05-19-2018 CA 125 14 U/mL Normal <38 [facility] Comment on above: Performed By: #### C ALE CP, CA125 ####[place] [address] CBC with Diffon 05-19-2018 Abs. Basophil 0.07 k/uL Normal 0.00-0.20 [facility] Comment on above: Performed By: #### C DP, CP, CA125 ####[place] [id number] Abs.Imm.Granulocyte <0.03 Normal 0.00-0.30 [facility] Comment on above: Performed By: #### C DP, CP, CA125 ####[place] [id number] Abs.Neutrophil (Seg) 4.82 k/uL Normal 1.50-8.10 [facility] Comment on above: Performed By: #### C DP, CP, CA125 ####[facility] [place] [address] Basophils/100 WBC Auto (Bld) 1 % Normal 0-2 [facility] Comment on above: Performed By: #### C DP, CP, CA125 ####[address] [address] Eosinophils Auto #/vol (Bld) 0.12 10*3/uL Normal 0.00-0.44 [facility] Comment on above: Performed By: #### C DP, CP, CA125 ####[address] [address] Eosinophils/100 WBC Auto (Bld) 2 % Normal 1-4 [facility] Comment on above: Performed By: #### C DP, CP, CA125 ####[address] [address] Erythrocyte distribution width Auto Ratio (RBC) 12.5 % Normal 11.8-14.4 [facility] Comment on above: Performed By: #### C DP, CP, CA125 ####[address] [address] Hematocrit Auto Volume Fraction (Bld) 42.3 % Normal 36.3-47.1 [facility] Comment on above: Performed By: #### C DP, CP, CA125 ####[address] [address] Hemoglobin mass conc (Bld) 13.7 g/dL Normal 11.9-15.1 [facility] Comment on above: Performed By: #### C DP, CP, CA125 ####[address] [address] Immature granulocytes #/vol (Bld) 0 % Normal 0 [facility] Comment on above: Performed By: #### C DP, CP, CA125 ####[address] [address] Lymphocytes Auto #/vol (Bld) 2.20 10*3/uL Normal 1.10-3.70 [facility] Comment on above: Performed By: #### C DP, CP, CA125 ####[address] [address] Lymphocytes/100 WBC Auto (Bld) 28 % Normal 24-43 [facility] Comment on above: Performed By: #### C DP, CP, CA125 ####[address] [address] MCH Auto Entitic mass (RBC) 31.0 pg Normal 25.2-33.5 [facility] Comment on above: Performed By: #### C DP, CP, CA125 ####[address] [address] MCHC Auto mass conc (RBC) 32.4 g/dL Normal 28.4-34.8 [facility] Comment on above: Performed By: #### C DP, CP, CA125 ####[address] [address] MCV Auto Entitic volume (RBC) 95.7 fL Normal 82.6-102.9 [facility] Comment on above: Performed By: #### C DP, CP, CA125 ####[address] [address] Monocytes Auto #/vol (Bld) 0.55 10*3/uL Normal 0.10-1.20 [facility] Comment on above: Performed By: #### C DP, CP, CA125 ####[address] [address] Monocytes/100 WBC Auto (Bld) 7 % Normal 3-12 [facility] Comment on above: Performed By: #### C DP, CP, CA125 ####[address] [address] Neutrophil (Seg) 62 % Normal 36-65 [facility] Comment on above: Performed By: #### C DP, CP, CA125 ####[address] [address] NRBC Automated 0.0 per 100 WBC Normal 0.0 [facility] Comment on above: Performed By: #### C DP, CP, CA125 ####[address] [address] Platelet mean volume Auto Entitic volume (Bld) 11.1 fL Normal 8.1-13.5 [facility] Comment on above: Performed By: #### C DP, CP, CA125 ####[address] [address] Platelets Auto #/vol (Bld) 208 10*3/uL Normal 138-453 [facility] Comment on above: Performed By: #### C DP, CP, CA125 ####[address] [address] RBC Auto #/vol (Bld) 4.42 10*6/uL Normal 3.95-5.11 [facility] Comment on above: Performed By: #### C DP, CP, CA125 ####[address] [address] WBC Auto #/vol (Bld) 7.8 10*3/uL Normal 3.5-11.3 [facility] Comment on above: Performed By: #### C DP, CP, CA125 ####[address] [address] Auto Diff Performed NOT REPORTED Normal [facility] Comment on above: Performed By: #### C DP, CP, CA125 ####[facility] [address] [place] [address] Platelets Auto #/vol (Bld) NOT REPORTED Normal [facility] Comment on above: Performed By: #### C DP, CP, CA125 ####[place] [address] [place] [address] RBC morphology finding Nom (Bld) NOT REPORTED Normal [facility] Comment on above: Performed By: #### C DP, CP, CA125 ####[address] [address] WBC Morphology NOT REPORTED Normal [facility] Comment on above: Performed By: #### C DP, CP, CA125 ####[address] [address] Comp Metabolic Profon 2017 (cont.) Normal [facility] Comment on above: Result Comment: Aver age GFR for 60-69 years old: 85 mL/min/1.73sq mChronic Kidney Disease: <60 mL/min/1.73sq mKidney failure: <15 mL/min/1.73sq meGFR calculated using average adult body mass. Additional eGFR calculator available at:http://www.[employer]/multiple_crcl_2012.htm Performed By: #### C DP, CP, CA125 ####[facility] [address] [place] [address] Albumin mass conc 4.4 g/dL Normal 3.5-5.2 [facility] Comment on above: Performed By: #### C DP, CP, CA125 ####[facility] [address] [place] [address] Albumin/Globulin mass ratio 1.9 {ratio} Normal 1.0-2.5 [facility] Comment on above: Performed By: #### C DP, CP, CA125 ####[facility] [place] [address] Alkaline Phos 86 U/L Normal 35-104 [facility] Comment on above: Performed By: #### C DP, CP, CA125 ####[place] [address] [place] [address] ALT enzyme act/vol 24 U/L Normal 5-33 [facility] Comment on above: Performed By: #### C DP, CP, CA125 ####[address] [address] Anion gap 3 molar conc 14 mmol/L Normal 9-17 [facility] Comment on above: Performed By: #### C DP, CP, CA125 ####[address] [address] AST enzyme act/vol 21 U/L Normal <32 [facility] Comment on above: Performed By: #### C DP, CP, CA125 ####[facility] [place] [address] Bilirubin Ql (U) 0.49 mg/dL Normal 0.3-1.2 [facility] Comment on above: Performed By: #### C DP, CP, CA125 ####[address] [address] Calcium mass conc 9.0 mg/dL Normal 8.6-10.4 [facility] Comment on above: Performed By: #### C DP, CP, CA125 ####[address] [address] Chloride molar conc 106 mmol/L Normal 98-107 [facility] Comment on above: Performed By: #### C DP, CP, CA125 ####[address] [address] CO2 molar conc 23 mmol/L Normal 20-31 [facility] Comment on above: Performed By: #### C DP CP, CA125 ####[facility] [place] [address] Creatinine mass conc 0.63 mg/dL Normal 0.50-0.90 [facility] Comment on above: Performed By: #### C DP, CP, CA125 ####[address] [address] GFR, Amer >60 Normal >60 [facility] Comment on above: Performed By: #### C DP, CP, CA125 ####[address] [address] GFR,non Amer >60 Normal >60 [facility] Comment on above: Performed By: #### C DP, CP, CA125 ####[facility] [address] [place] [address] Glucose mass conc 100 mg/dL High 70-99 [facility] Comment on above: Performed By: #### C DP, CP, CA125 ####[address] [place] [address] Potassium molar conc 4.3 mmol/L Normal 3.7-5.3 [facility] Comment on above: Performed By: #### C DP, CP, CA125 ####[facility] [address] [place] [address] Protein mass conc 6.7 g/dL Normal 6.4-8.3 [facility] Comment on above: Performed By: #### C DP, CP, CA125 ####[facility] [place] [address] Sodium molar conc 143 mmol/L Normal 135-144 [facility] Comment on above: Performed By: #### C DP, CP, CA125 ####[address] [place] [address] Urea nitrogen mass conc 9 mg/dL Normal 06-04 [facility] Comment on above: Performed By: #### C DP, CP, CA125 ####[facility] [address] [place] [address] BUN/CRE Ratio NOT REPORTED Normal 07-02 [facility] Comment on above: Performed By: #### C DP, CP, CA125 ####[facility] [address] [place] [address] Staging: NOT REPORTED Normal [facility] Comment on above: Performed By: #### C DP, CP, CA125 ####[address] [address] Type + Screenon 05-19-2018 Type + Screen Sample Expiration 06/05/2018 Arm Band Number [id number] ABO/Rh(D) A POSITIVE Antibody Screen NEGATIVE Normal [facility] Comment on above: Performed By: #### T YS ####[address] [address] Urinalysis, Routineon 2017 Acetaminophen mass conc Negative Normal NEG [facility] Comment on above: Performed By: #### LEE Brannon ####[facility] [address] [place] [address] Bilirubin, SemiQt,Ur Negative Normal NEG [facility] Comment on above: Performed By: #### LEE Brannon ####[facility] [address] [place] [address] Color YELLOW Normal YEL [facility] Comment on above: Performed By: #### U STEFFANIE DianeO ####[facility] [address] [place] [address] Glucose,Semi-qnt,Ur Negative Normal NEG [facility] Comment on above: Performed By: #### LEE Brannon ####[address] [place] [address] Hemoglobin, Ur Negative Normal NEG [facility] Comment on above: Performed By: #### LEE Brannon ####[address] [place] [address] Leuckocyte Esterase TRACE Abnormal NEG [facility] Comment on above: Performed By: #### LEE Brannon ####[address] [address] Nitrite,Ur Negative Normal NEG [facility] Comment on above: Performed By: #### LEE Brannon ####[address] [address] PH,Ur 6.5 Normal 5.0-8.0 [facility] Comment on above: Performed By: #### LEE Brannon ####[address] [address] Protein mass conc Negative Normal NEG [facility] Comment on above: Performed By: #### LEE Brannon ####[address] [address] Spec. [place],Ur 1.003 Low 1.005-1.03 0 [facility] Comment on above: Performed By: #### LEE Brannon ####[address] [place] [address] Turbidity CLEAR Normal CLEAR [facility] Comment on above: Performed By: #### LEE Brannon ####[facility] [address] [place] [address] Urobilinogen,Ur Normal Normal NORM [facility] Comment on above: Performed By: #### U ALEE ####[facility] [address] [place] [address] Comment NOT REPORTED Normal [facility] Comment on above: Performed By: #### U ALEE ####[facility] [address] [place] [address] Urinalysis,Microon 8 ----- Normal [facility] Comment on above: Performed By: #### U ALEE ####[address] [place] [address] Epithelial cells None Normal 0-5 [facility] Comment on above: Performed By: #### U ALEE ####[address] [address] RBC Test strip #/vol (U) None Normal 0-4 [facility] Comment on above: Result Comment: Refe rence range defined for non-centrifuged specimen. Performed By: #### U LEE Diane ####[address] [address] Urine WBC's None Normal 0-5 [facility] Comment on above: Performed By: #### U ALEE ####[facility] [address] [place] [address] Amorphous Sediment NOT REPORTED Normal NONE [facility] Comment on above: Performed By: #### U ALEE ####[facility] [address] [place] [address] Bacteria NOT REPORTED Normal NONE [facility] Comment on above: Performed By: #### U ALEE ####[facility] [address] [place] [address] Casts NOT REPORTED Normal 0-8 [facility] Comment on above: Performed By: #### U A, UMICAO ####[facility] [address] [place] [address] Crystals NOT REPORTED Normal NONE [facility] Comment on above: Performed By: #### U A, UMICAO ####[facility] [address] [place] [address] Epithelial, Renal NOT REPORTED Normal 0 [facility] Comment on above: Performed By: #### U A, UMICAO ####[facility] [address] [place] [address] Mucus Strands NOT REPORTED Normal NONE [facility] Comment on above: Performed By: #### U A, UMICAO ####[facility] [address] [place] [address] Other Observations NOT REPORTED Normal NREQ [facility] Comment on above: Performed By: #### U A, UMICAO ####[facility] [address] [place] [address] Trichomonas NOT REPORTED Normal NONE [facility] Comment on above: Performed By: #### U A, UMICAO ####[facility] [address] [place] [address] Yeast NOT REPORTED Normal NONE [facility] Comment on above: Performed By: #### U A, UMICAO ####[address] [place] [address] XR CHEST (2 VW)on 05-19-2018 Protein mass conc EXAMINATION:TWO VIEW S OF THE CHEST05/19/2018 2:26 pmCOMPARISON:None.HISTORY :ORDERING SYSTEM PROVIDED HISTORY: preop, endometrial cancerTECHNOLOGIST PROVIDED HISTORY:Reason for exam:->preop, endometrial cancerFINDINGS:Cardiac silhouette is normal in size. Severe dextroscoliotic curvature ofthe thoracic spine. No obvious focal airspace consolidation, pleuraleffusion, or pneumothorax. Trachea is midline.IMPRESSION: Severe dextroscoliotic curvature of the thoracic spine.No acute cardiopulmonary pathology.Interpreted by:SANDRA Kumarigned by:Jay Jay Gomes MD05/19/18inal result Normal [facility] Vital Signs Date Time Vital Sign Value Performing Clinician Facility 03-26-2025 11:48-0400 Body temperature 98.49 [degF] Yari Younger MD Work Phone: [facility] 03-26-2025 11:48-0400 Diastolic blood pressure 72 mm[Hg] Yari Younger MD Work Phone: [facility] 03-26-2025 11:48-0400 Heart rate 54 /min Yari Younger MD Work Phone: [facility] 03-26-2025 11:48-0400 Respiratory rate 16 /min Yari Younger MD Work Phone: [facility] 03-26-2025 11:48-0400 SaO2% (BldA) [Mass fraction] 92 % Yari Younger MD Work Phone: [facility] 03-26-2025 11:48-0400 Systolic blood pressure 154 mm[Hg] Yari Younger MD Work Phone: [facility] 03-26-2025 03:50-0400 Body height 162.6 cm Yari Younger MD Work Phone: [facility] 03-26-2025 03:50-0400 Body mass index (BMI) [Ratio] 31.37 kg/m2 Yari Younger MD Work Phone: [facility] 03-26-2025 03:50-0400 Body weight 82.9 kg Yari Younger MD Work Phone: [facility] 03-01-2025 11:24-0400 Body height 162.56 cm [facility] 03-01-2025 11:24-0400 Body mass index (BMI) [Ratio] 29.3 kg/m2 [facility] 03-01-2025 11:24-0400 Body weight 77.56 kg [facility] 03-01-2025 11:24-0400 Diastolic blood pressure 77 mm[Hg] [facility] 03-01-2025 11:24-0400 Heart rate 61 /min [facility] 03-01-2025 11:24-0400 Respiratory rate 12 /min [facility] 03-01-2025 11:24-0400 SaO2% (BldA) [Mass fraction] 98 % [facility] 03-01-2025 11:24-0400 Systolic blood pressure 166 mm[Hg] [facility] 02-24-2025 10:38-0400 Body height 162.6 cm Lul Rose DO Work Phone: [facility] 02-24-2025 10:38-0400 Body mass index (BMI) [Ratio] 29.52 kg/m2 Lul Rose DO Work Phone: [facility] 02-24-2025 10:38-0400 Body weight 78.02 kg Lul Rose DO Work Phone: [facility] 02-24-2025 10:38-0400 Diastolic blood pressure 80 mm[Hg] Lul Rose DO Work Phone: [facility] 02-24-2025 10:38-0400 Heart rate 56 /min Lul Rose DO Work Phone: [facility] 02-24-2025 10:38-0400 Systolic blood pressure 140 mm[Hg] Lul Rose DO Work Phone: [facility] 07-13-2024 14:05-0400 Body height 162.56 cm [facility] 07-13-2024 14:05-0400 Body mass index (BMI) [Ratio] 29.3 kg/m2 [facility] 07-13-2024 14:05-0400 Body weight 77.56 kg [facility] 07-13-2024 14:05-0400 Diastolic blood pressure 82 mm[Hg] [facility] 07-13-2024 14:05-0400 Heart rate 63 /min [facility] 07-13-2024 14:05-0400 Systolic blood pressure 155 mm[Hg] [facility] 02-25-2024 10:28-0400 Body height 162.6 cm Lul Rose DO Work Phone: [facility] 02-25-2024 10:28-0400 Body mass index (BMI) [Ratio] 29.18 kg/m2 Lul Rose DO Work Phone: [facility] 02-25-2024 10:28-0400 Body weight 77.11 kg Lul Rose DO Work Phone: [facility] 02-25-2024 10:28-0400 Diastolic blood pressure 82 mm[Hg] Lul Rose DO Work Phone: [facility] 02-25-2024 10:28-0400 Heart rate 72 /min Lul Rose DO Work Phone: [facility] 02-25-2024 10:28-0400 Systolic blood pressure 138 mm[Hg] Lul Rose DO Work Phone: [facility] 02-10-2024 11:26-0400 Body height 162.56 cm [facility] 02-10-2024 11:26-0400 Body mass index (BMI) [Ratio] 29.4 kg/m2 [facility] 02-10-2024 11:26-0400 Body weight 77.67 kg [facility] 02-10-2024 11:26-0400 Diastolic blood pressure 60 mm[Hg] [facility] 02-10-2024 11:26-0400 Heart rate 54 /min [facility] 02-10-2024 11:26-0400 Systolic blood pressure 142 mm[Hg] [facility] 08-06-2023 09:45-0400 Body height 162.56 cm Aurelia Quiroga Other [employer] Other 08-06-2023 09:45-0400 Body mass index (BMI) [Ratio] 29.86 kg/m2 Aurelia Quiroga Other [facility] Other 08-06-2023 09:45-0400 Body weight 78.93 kg Aurelia Quiroga Other [facility] Other 08-06-2023 09:45-0400 Diastolic blood pressure 78 mm[Hg] Aurelia Quiroga Other [facility] Other 08-06-2023 09:45-0400 Systolic blood pressure 147 mm[Hg] Aurelia Quiroga Other [facility] Other 2023 13:15-0400 Body height 162.56 cm Aurelia Quiroga Other [facility] Other 2023 13:15-0400 Body mass index (BMI) [Ratio] 29.86 kg/m2 Aurelia Quiroga Other [facility] Other 2023 13:15-0400 Body weight 78.93 kg Aurelia Quiroga Other [facility] Other 2023 13:15-0400 Diastolic blood pressure 82 mm[Hg] Aurelia Quiroga Other [facility] Other 2023 13:15-0400 Systolic blood pressure 147 mm[Hg] Aurelia Quiroga Other [facility] Other 07-10-2023 18:57-0400 Diastolic blood pressure 77 mm[Hg] MD Aurelia Quiroga Work Phone: [facility] 07-10-2023 18:57-0400 Heart rate 51 /min MD Aurelia Quiroga Work Phone: [facility] 07-10-2023 18:57-0400 Respiratory rate 16 /min MD Aurelia Quiroga Work Phone: [facility] 07-10-2023 18:57-0400 SaO2% (BldA) [Mass fraction] 96 % MD Aurelia Quiroga Work Phone: [facility] 07-10-2023 18:57-0400 Systolic blood pressure 171 mm[Hg] MD Aurelia Quiroga Work Phone: [facility] 07-10-2023 15:42-0400 Body height 163.83 cm MD Aurelia Quiroga Work Phone: [facility] 07-10-2023 15:42-0400 Body temperature 97.7 [degF] MD Aurelia Quiroga Work Phone: [facility] 07-10-2023 15:42-0400 Body weight 79.37 kg MD Aurelia Quiroga Work Phone: [facility] 06-10-2023 11:45-0400 Body height 162.56 cm Aurelia Quiroga Other [facility] [employer] Other 06-10-2023 11:45-0400 Body mass index (BMI) [Ratio] 30.55 kg/m2 Aurelia Quiroga Other [facility] [employer] Other 06-10-2023 11:45-0400 Body weight 80.74 kg Aurelia Quiroga Other [facility] Other 06-10-2023 11:45-0400 Diastolic blood pressure 80 mm[Hg] Aurelia Quiroga Other [employer] [facility] [employer] Other 06-10-2023 11:45-0400 Systolic blood pressure 149 mm[Hg] Aurelia Quiroga Other [facility] Other 05-08-2023 10:15-0400 Body height 162.56 cm Anu Gordillo Other [facility] Other 05-08-2023 10:15-0400 Body mass index (BMI) [Ratio] 30.38 kg/m2 Anu Gordillo Other [facility] Other 05-08-2023 10:15-0400 Body weight 80.29 kg Anu Gordillo Other [facility] Other 03-31-2023 11:00-0400 Body height 162.56 cm Aurelia Quiroga Other [facility] Other 03-31-2023 11:00-0400 Body mass index (BMI) [Ratio] 30.72 kg/m2 Aurelia Quiroga Other [facility] Other 03-31-2023 11:00-0400 Body weight 81.19 kg Aurelia Quiroga Other [facility] Other 03-31-2023 11:00-0400 Diastolic blood pressure 87 mm[Hg] Aurelia Quiroga Other [facility] Other 03-31-2023 11:00-0400 Systolic blood pressure 149 mm[Hg] Aurelia Quiroga Other [facility] Other 02-17-2023 10:45-0400 Body height 162.56 cm Aurelia Quiroga Other [facility] Other 02-17-2023 10:45-0400 Body mass index (BMI) [Ratio] 28.83 kg/m2 Aurelia Quiroga Other [facility] Other 02-17-2023 10:45-0400 Body weight 76.2 kg Aurelia Quiroga Other [facility] Other 05-08-2023 10:45-0400 Diastolic blood pressure 86 mm[Hg] Aurelia Quiroga Other [facility] Other 02-17-2023 10:45-0400 SaO2% (BldA) [Mass fraction] 98 % Aurelia Quiroga Other [facility] Other 02-17-2023 10:45-0400 Systolic blood pressure 142 mm[Hg] Aurelia Quiroga Other [facility] Other 08-09-2022 11:15-0400 Body height 166.37 cm Jaya Jomar Other [facility] Other 08-09-2022 11:15-0400 Body mass index (BMI) [Ratio] 29.33 kg/m2 Jaya Hadley Other [facility] Other 08-09-2022 11:15-0400 Body weight 81.19 kg Jaya Jomar Other [facility] Other 08-09-2022 11:15-0400 Diastolic blood pressure 71 mm[Hg] Jaya Dinorakaurcitlalli Other [facility] Other 08-09-2022 11:15-0400 Systolic blood pressure 129 mm[Hg] Jaya Mariscalcitlalli Other [facility] Other 04-24-2022 15:15-0400 Body height 166.37 cm Penny Layton Other [facility] Other 04-24-2022 15:15-0400 Body mass index (BMI) [Ratio] 29.49 kg/m2 Penny Layton Other [facility] Other 04-24-2022 15:15-0400 Body weight 81.65 kg Penny Layton Other [facility] [employer] Other 03-06-2022 10:49-0400 Body height 162.56 cm Aurelia Quiroga Work Phone: [facility] [address] DO Work Phone: 03-06-2022 10:49-0400 Body mass index (BMI) [Ratio] 31.76 kg/m2 Aurelia Quiroga Work Phone: [facility] [address] DO Work Phone: 03-06-2022 10:49-0400 Body surface area Derived from formula 1.89 m2 Aurelia Quiroga Work Phone: [facility] [address] DO Work Phone: 03-06-2022 10:49-0400 Body weight 83.92 kg Aurelia Quiroga Work Phone: [facility] [address] DO Work Phone: 03-06-2022 10:49-0400 Diastolic blood pressure 80 mm[Hg] Aurelia Quiroga Work Phone: [facility] [address] DO Work Phone: 03-06-2022 10:49-0400 Heart rate 62 /min Aurelia Quiroga Work Phone: [facility] [address] DO Work Phone: 03-06-2022 10:49-0400 Systolic blood pressure 142 mm[Hg] Aurelia Quiroga Work Phone: [facility] [address] DO Work Phone: Encounters Encounter Date Encounter Type Care Provider Facility Start: 05-30-2025 End: 05-30-2025 ambulatory Aurelia Quiroga MD Facility:[facility] Start: 05-16-2025 End: 05-16-2025 [facility] Start: 05-16-2025 End: 05-16-2025 Subsequent hospital visit by physician Ginna [facility] Drawing Room [facility] Comment on above: MLT exam for high-ri sk Medicare patient; Screening for HPV (human papillomavirus) Start: 03-24-2025 End: 03-26-2025 ambulatory UARELIA QUIROGA [facility] Start: 03-24-2025 End: 03-26-2025 Evaluation and management of inpatient Yari Younger MD Work Phone: [facility] Comment on above: S/P total knee arthr oplasty, right (Primary Dx) Start: 03-17-2025 End: 03-17-2025 Patient encounter status Gissell [address] [place] [address] Work Phone: Start: 03-17-2025 End: 03-17-2025 Subsequent hospital visit by physician Gissell Elliott Id 1 [facility] Comment on above: Preop cardiovascular exam; ASHD (arteriosclerotic heart disease); History of PTCA; Myocardial infarction, unspecified [place] type, unspecified artery (Multi); Essential hypertension Start: 03-17-2025 End: 03-17-2025 ambulatory [facility] Start: 03-17-2025 End: 03-17-2025 Encounter for preprocedural cardiovascular examination [facility] Start: 03-03-2025 Non-patient / Non-visit [facility] Work Phone: Start: 03-03-2025 End: 03-03-2025 ambulatory NON STAFF [facility] Work Phone: Start: 03-03-2025 End: 03-03-2025 Departed Referred [facility] Start: 03-01-2025 Preoperative state [facility] Start: 03-01-2025 End: 03-01-2025 Encounter for other preprocedural examination [facility] Start: 03-01-2025 End: 03-01-2025 Patient encounter procedure [facility] Work Phone: Start: 02-24-2025 End: 02-24-2025 Office consultation new/estab patient 60 min Lul Rose DO Work Phone: [facility] Comment on above: Preop cardiovascular exam; ASHD (arteriosclerotic heart disease); History of PTCA; Myocardial infarction, unspecified [place] type, unspecified artery (Multi); Mixed hyperlipidemia; Essential hypertension; PFO (patent foramen ovale) ([facility]); Bilateral carotid artery stenosis; TIA (transient ischemic attack); Former smoker; BMI 29.0-29.9,adult Start: 02-24-2025 End: 02-24-2025 Patient encounter status Lul Rose DO Work Phone: [facility] Start: 02-24-2025 End: 02-24-2025 ambulatory [facility] Start: 02-24-2025 End: 02-24-2025 Encounter for preprocedural cardiovascular examination [facility] Start: 07-13-2024 End: 07-13-2024 ambulatory [facility] Work Phone: Start: 07-13-2024 End: 07-13-2024 Patient encounter procedure [facility] Work Phone: Start: 05-27-2024 End: 05-27-2024 [facility] Work Phone: Start: 05-27-2024 End: 05-27-2024 Patient encounter procedure [facility] Work Phone: Start: 05-12-2024 End: 05-12-2024 Subsequent hospital visit by physician Aurelia Quiroga MD Work Phone: [facility] Comment on above: Acute vaginitis; Encounter for screening for malignant neoplasm of vagina Start: 04-23-2024 End: 04-23-2024 ambulatory MD Aurelia Quiroga Work Phone: [facility] Work Phone: Start: 04-23-2024 End: 04-23-2024 Patient encounter procedure MD Aurelia Quiroga Work Phone: [facility] Work Phone: Start: 04-21-2024 Non-patient / Non-visit MD Kavitha Quiroga Work Phone: [facility] Work Phone: Start: 04-21-2024 End: 04-21-2024 ambulatory MD Aurelia Quiroga Work Phone: [facility] Work Phone: Start: 04-21-2024 End: 04-21-2024 Patient encounter procedure MD Aurelia Quiroga Work Phone: [facility] Work Phone: Start: 04-13-2024 End: 04-13-2024 ambulatory MD Aurelia Quiroga Work Phone: [facility] Work Phone: Start: 04-13-2024 End: 04-13-2024 Patient encounter procedure MD Aurelia Quiroga Work Phone: [facility] Work Phone: Start: 04-08-2024 End: 04-08-2024 Subsequent hospital visit by physician Gissell Omer Echo/Vasc Room 2 [facility] Comment on above: Bilateral carotid ar tawana stenosis Start: 03-31-2024 Non-patient / Non-visit MD Kavitha Quiroga Work Phone: [facility] Work Phone: Start: 03-23-2024 End: 03-23-2024 ambulatory MD Aurelia Quiroga Work Phone: [facility] Work Phone: Start: 03-23-2024 End: 03-23-2024 Patient encounter procedure MD Aurelia Quiroga Work Phone: [facility] Work Phone: Start: 03-10-2024 End: 03-10-2024 ambulatory MD Aurelia Quiroga Work Phone: [facility] Work Phone: Start: 03-10-2024 End: 03-10-2024 Patient encounter procedure MD Aurelia Quiroga Work Phone: [facility] Work Phone: Start: 03-10-2024 Non-patient / Non-visit MD Kavitha Quiroga Work Phone: [facility] Work Phone: Start: 03-01-2024 End: 03-01-2024 ambulatory MD Aurelia Quiroga Work Phone: [facility] Work Phone: Start: 03-01-2024 End: 03-01-2024 Patient encounter procedure MD Aurelia Quiroga Work Phone: [facility]ician [facility] Work Phone: Start: 02-27-2024 Non-patient / Non-visit MD Kavitha Quiroga Work Phone: [facility] Work Phone: Start: 02-25-2024 End: 02-25-2024 Office outpatient visit 25 minutes Lul Rose DO Work Phone: [facility] Comment on above: ASHD (arteriosclerot ic heart disease); History of PTCA; Myocardial infarction, unspecified [place] type, unspecified artery (Multi); PFO (patent foramen ovale) ([facility]); Essential hypertension; TIA (transient ischemic attack); Former smoker; BMI 29.0-29.9,adult; Mixed hyperlipidemia; Bilateral carotid artery stenosis Start: 02-17-2024 End: 02-17-2024 ambulatory MD Aurelia Quiroga Work Phone: [facility] Work Phone: Start: 02-17-2024 End: 02-17-2024 Patient encounter procedure MD Aurelia Quiroga Work Phone: [facility] Work Phone: Start: 02-10-2024 End: 02-10-2024 ambulatory [facility] Work Phone: Start: 02-10-2024 End: 02-10-2024 Patient encounter procedure [facility] Work Phone: Start: 08-26-2023 End: 08-26-2023 ambulatory Aurelia Quiroga Other [facility] Other Start: 08-26-2023 Telephone encounter Aurelia Quiroga [facility] Start: 08-08-2023 End: 08-08-2023 ambulatory Aurelia Quiroga Other [facility] Other Start: 08-08-2023 Telephone encounter Aurelia Quiroga [facility] Start: 08-06-2023 Office outpatient vi sit 15 minutes Aurelia Quiroga [facility] Start: 08-06-2023 End: 08-06-2023 ambulatory MD Aurelia Quiroga Work Phone: [facility] Other Start: 08-06-2023 End: 08-06-2023 Departed Referred MD Aurelia Quiroga Work Phone: [facility] [place] Work Phone: Start: 07-29-2023 End: 07-29-2023 ambulatory Aurelia Quiroga Other [facility] Other Start: 07-29-2023 Telephone encounter Aurelia Quiroga [facility] Start: 07-28-2023 End: 07-28-2023 ambulatory Aurelia Quiroga Other [facility] Other Start: 07-28-2023 Telephone encounter Aurelia Quiroga [facility] Start: 2023 End: 2023 ambulatory Aurelia Quiroga Other [facility] Other Start: 2023 Office outpatient vi sit 15 minutes Aurelia Quiroga [facility] Start: 07-10-2023 End: 07-10-2023 Emergency department patient visit MD Aurelia Quiroga Work Phone: [facility] Work Phone: Start: 06-23-2023 End: 06-23-2023 ambulatory Aurelia Quiroga Other [facility] Other Start: 06-23-2023 Telephone encounter Aurelia Quiroga [facility] Start: 06-10-2023 End: 06-10-2023 ambulatory Aurelia Quiroga Other [facility] Other Start: 06-10-2023 Office outpatient vi sit 15 minutes Aurelia Quiroga [facility] Start: 05-21-[address] Lul garcia [place] Facility: Start: 05-15-2023 End: 05-15-2023 ambulatory Anu Gordillo Other [facility] Other Start: 05-15-2023 Office outpatient vi sit 25 minutes Anu Gordillo [facility] Start: 05-08-2023 Office outpatient vi sit 25 minutes Anu Gordillo [facility] Start: 05-08-2023 End: 05-08-2023 ambulatory MD Aurelia Quiroga Work Phone: [facility] Work Phone: Start: 05-08-2023 End: 05-08-2023 Patient encounter procedure MD Aurelia Quiroga Work Phone: [facility] Start: 03-31-2023 End: 03-31-2023 ambulatory Aurelia Quiroga Other [facility] Other Start: 03-31-2023 Office outpatient vi sit 15 minutes Aurelia Quiroga [facility] Start: 03-31-2023 Telephone encounter Aurelia Quiroga [facility] Start: 03-13-2023 End: 03-13-2023 Subsequent hospital visit by physician Aurelia Quiroga MD Work Phone: [facility] Laboratory Comment on above: H/O cancer of uterus ; Endometrial cancer (HCC); Encounter for screening for malignant neoplasm of vagina Start: 02-27-[address] Lul Rose Facility: Start: 02-24-2023 End: 02-24-2023 ambulatory MD Aurelia Quiroga Work Phone: [facility] Work Phone: Start: 02-24-2023 End: 02-24-2023 Patient encounter procedure MD Aurelia Quiroga Work Phone: [facility] Start: 02-17-2023 End: 02-17-2023 ambulatory Aurelia Quiroga Other [facility] Other Start: 02-17-2023 Office outpatient vi sit 15 minutes Aurelia Quiroga [facility] Start: 02-03-2023 End: 02-03-2023 ambulatory Aurelia Quiroga Other [facility] Other Start: 02-03-2023 Telephone encounter Aurelia Quiroga [facility] Start: 09-19-2022 Pre-procedure evalua tion check Anu Gordillo Other [facility] Other Start: 09-19-2022 End: 09-20-[address] AURELIA QUIROGA Facility:[facility] Start: 08-20-2022 End: 08-21-[address] THIERRY BETANCOURT Facility:[facility] Start: 08-09-2022 End: 08-09-2022 ambulatory Jaya Hadley Other [facility] Other Start: 08-09-2022 Patient encounter procedure Jaya Hadley [facility] Start: 08-05-2022 End: 08-05-2022 Subsequent hospital visit by physician Aurelia Quiroga MD Work Phone: [facility] Comment on above: H/O cancer of uterus ; Endometrial cancer (HCC); Encounter for screening for malignant neoplasm of vagina Start: 06-26-2022 End: 07-06-[address] AURELIA QUIROGA Facility:[facility] Start: 05-21-2022 Adult health examination Ivy Gordillo Other [facility] Other Start: 05-21-2022 End: 05-22-[address] AURELIA QUIROGA Facility:[facility] Start: 05-19-2022 End: 05-19-[address] AURELIA QUIROGA Facility:[facility] Start: 05-13-2022 End: 05-13-2022 ambulatory Penny Layton Other [facility] Other Start: 05-13-2022 Telephone encounter Penny Layton [facility] Start: 05-07-2022 End: 05-08-2022 ambulatory PENNY LAYTON Facility: Start: 04-26-2022 End: 04-26-2022 ambulatory Penny Layton Other [facility] Other Start: 04-26-2022 Telephone encounter Penny Layton [facility] Start: 04-24-2022 End: 04-24-2022 ambulatory Penny Layton Other [facility] Other Start: 04-24-2022 Office outpatient vi sit 25 minutes Penny Layton [facility] Start: 03-06-2022 Office outpatient vi sit 40 minutes Aurelia Quiroga Work Phone: [facility] [facility] DO Work Phone: Start: 02-18-2022 End: 02-18-2022 Subsequent hospital visit by physician Aurelia Quiroga MD Work Phone: [facility] Laboratory Comment on above: H/O cancer of uterus ; Endometrial cancer (HCC); Encounter for screening for malignant neoplasm of other genitourinary organs Start: 01-29-2022 ambulatory Penny sanchez MD Work Phone: [facility] [place] Comment on above: levothyroxine Start: 07-23-2021 End: 07-23-2021 Subsequent hospital visit by physician Aurelia Quiroga MD Work Phone: [facility] Laboratory Comment on above: Endometrial cancer ( HCC); Encounter for screening for malignant neoplasm of other genitourinary organs Start: 02-19-2021 End: 02-19-2021 Subsequent hospital visit by physician Aurelia Quiroga MD Work Phone: [facility] Laboratory Comment on above: Encounter for screen ing for malignant neoplasm of other genitourinary organs Start: 04-03-2020 End: 04-03-2020 Subsequent hospital visit by physician Aurelia Quiroga [facility] Laboratory Comment on above: Encounter for screen ing for malignant neoplasm of other genitourinary organs ; H/O cancer of uterus Start: 08-05-2019 End: 08-05-2019 Subsequent hospital visit by physician Aurelia Quiroga MD Work Phone: [facility] Laboratory Comment on above: Encounter for screen ing for malignant neoplasm of vagina ; Endometrial cancer (HCC) Start: 06-02-2018 End: 06-03-2018 Evaluation and management of inpatient BAILEY Balderas [facility] Start: 05-19-2018 End: 05-22-2018 Patient encounter BAILEY MENDEZ [facility] Start: 05-19-2018 Encounter for other preprocedural examination [facility] Start: 05-19-2018 End: 05-24-2018 Patient encounter AURELIA [facility] Encounter for other preprocedural examination [facility] Procedures Date Procedure Procedure Detail Performing Clinician Start: 03-26-2025 Blood count hemoglobin Nereida Agueda WARD Work Phone: Start: 03-25-2025 Urnls dip stick/tablet rgnt auto w/o microscopy Jaziel Martinez MD Work Phone: Start: 03-25-2025 BASIC METABOLIC PANEL W/ REFLEX TO MG FOR LOW K Jaziel Martinez MD Work Phone: Start: 03-25-2025 Dup-scan xtr veins unilateral/limited study Nereidalaura WARD Work Phone: Start: 03-25-2025 Sodium serum plasma or whole blood Nereida Agueda WARD Work Phone: Start: 03-25-2025 Basic metabolic panel calcium total Nereida Agueda WARD Work Phone: Start: 03-24-2025 Radiologic examination knee 1/2 views Nereidalaura WARD Work Phone: Start: 03-24-2025 Gluc bld gluc mntr dev cleared fda spec home use Unknown Provider Result Start: 03-17-2025 Cv strs tst xers&/or rx cont ecg trcg only Lul Tuckerdon Work Phone: Start: 05-26-2024 Mammography Lul Tuckerharrison STUART Work Phone: Start: 04-08-2024 Duplex scan extracranial art compl bi study Lul Tuckerdon Work Phone: Start: 02-17-2024 X-ray of right knee MD Aurelia Quiroga Work Phone: Start: 08-06-2023 Urine culture MD Aurelia Quiroga Work Phone: Start: 07-10-2023 Plain chest X-ray MD Aurelia Quiroga Work Phone: Start: 06-07-2023 History of percutaneous transluminal coronary angioplasty History of PTCA Lul Tuckerharrison ST[facility] Work Phone: Start: 05-08-2023 X-ray of right knee MD Aurelia Quiroga Work Phone: Start: 02-24-2023 X-ray of right knee MD Aurelia Quiroga Work Phone: Start: 08-01-2021 Mammography Lul Tuckerharrison [facility] Work Phone: Start: 03-18-2019 Screening mammography Anu Gordillo Other Start: 06-03-2018 INCENTIVE SPIROMETRY RT AURELIA QUIROGA Start: 06-03-2018 INCENTIVE SPIROMETRY RT AURELIA QUIROGA Start: 06-03-2018 DISCHARGE PATIENT AURELIA KIMBER Start: 06-03-2018 INCENTIVE SPIROMETRY RT AURELIA KIMBER Start: 06-03-2018 INITIATE OXYGEN THERAPY PROTOCOL AURELIA QUIROGA Start: 06-03-2018 INCENTIVE SPIROMETRY RT AURELIA QUIROGA Start: 06-03-2018 BASIC METABOLIC PANEL W/ REFLEX TO MG FOR LOW K AURELIA QUIROGA Start: 06-03-2018 Blood count complete auto&auto difrntl wbc AURELIA QUIROGA Start: 06-03-2018 INTAKE AND OUTPUT AURELIA QUIROGA Start: 06-03-2018 INCENTIVE SPIROMETRY RT AURELIA QUIROGA Start: 06-02-2018 MISCELLANEOUS NURSING CARE ORDER (SPECIFY) AURELIA QUIROGA Start: 06-02-2018 INCENTIVE SPIROMETRY RT AURELIA QUIROGA Start: 06-02-2018 INCENTIVE SPIROMETRY RT AURELIA QUIROGA Start: 06-02-2018 DIET GENERAL AURELIA QUIROGA Start: 06-02-2018 INCENTIVE SPIROMETRY RT AURELIA QUIROGA Start: 06-02-2018 SURGICAL PATHOLOGY AURELIA QUIROGA Start: 06-02-2018 CULTURE, URINE CATHETER AURELIA QUIROGA Start: 06-02-2018 INCENTIVE SPIROMETRY RT AURELIA QUIROGA Start: 06-02-2018 CATHETER REMOVAL AURELIA QUIROGA Start: 06-02-2018 INCENTIVE SPIROMETRY RT AURELIA QUIROGA Start: 06-02-2018 INITIATE OXYGEN THERAPY PROTOCOL AURELIA QUIROGA Start: 06-02-2018 INTAKE AND OUTPUT AURELIA QUIROGA Start: 06-02-2018 PLACE INTERMITTENT PNEUMATIC COMPRESSION DEVICE AURELIA QUIROGA Start: 06-02-2018 STRAIGHT CATH AURELIA QUIROGA Start: 06-02-2018 WOUND CARE AURELIA QUIROGA Start: 06-02-2018 AMBULATE PATIENT AURELIA KIMBER Start: 06-02-2018 FULL CODE AURELIA QUIROGA Start: 06-02-2018 NOTIFY PHYSICIAN (SPECIFY) AURELIA QUIROGA Start: 06-02-2018 PATIENT STATUS (FROM ED OR OR/PROCEDURAL) AURELIA QUIROGA Start: 06-02-2018 TRANSFER PATIENT AURELIA QUIROGA Start: 06-02-2018 VITAL SIGNS AURELIA QUIROGA Start: 06-02-2018 End: 01-04-2020 H/O: hysterectomy RALH BSO, Cytologic washings, Peritoneal biopsies 06/02/18 Aurelia Quiroga MD Work Phone: Start: 06-02-2018 SURGICAL PATHOLOGY AURELIA KIMBER Start: 06-02-2018 SURGICAL PATHOLOGY AURELIA KIMBER Start: 06-02-2018 CYTOLOGY, NON-MLT AURELIA KIMBER Start: 06-02-2018 Culture bacterial quanttative colony count urine AURELIA KIMBER Start: 05-19-2018 Radiologic exam chest 2 views AURELIA KIMBER Start: 05-19-2018 Blood count complete auto&auto difrntl wbc AURELIA KIMBER Start: 05-19-2018 CA 125 AURELIA KIMBER Start: 05-19-2018 Comprehensive metabolic panel AURELIA QUIROGA Start: 05-19-2018 TYPE AND SCREEN AURELIA KIMBER Start: 05-19-2018 Microscopic urinalysis AURELIA KIMBER Start: 05-19-2018 Urnls dip stick/tablet rgnt auto w/o microscopy AURELIA KIMBER Start: 05-19-2018 EKG 12-LEAD AURELIA KIMBER Start: 05-07-2018 Adult depression screening assessment Penny Godoy MD Work Phone: Start: 12-04-2017 Colonoscopy Lul Rose DO Work Phone: Start: 06-21-2016 General examination of patient nAu [place] Other Arthroscopy Aurelia Quiroga Work Phone: Cholecystectomy Aurelia thompson Work Phone: History of percutane ous transluminal coronary angioplasty History of PTCA Aurelia Quiroga Work Phone: History of percutane ous transluminal coronary angioplasty History of PTCA Lul Rose DO Work Phone: History of percutane ous transluminal coronary angioplasty History of PTCA Lul Rose DO Work Phone: History of percutane ous transluminal coronary angioplasty History of PTCA [place] 1 Surgical procedure o n thorax Aurelia Quiroga Work Phone: Thyroidectomy Aurelia Quiroga Work Phone: Tonsillectomy and adenoidectomy Aurelia Quiroga Work Phone: Total colonoscopy Aurelia camacho Work Phone: Viral screening Anu sosa Other Plan of Treatment Date Care Activity Detail Author Start: 12-04-2027 Screening for malignant neoplasm of colon [facility] Start: 2027 Respiratory Syncytial Virus (RSV) or age 60 yrs+ (1 - 1-dose 75+ series) Respiratory Syncytial Virus (RSV) or age 60 yrs+ (1 - 1-dose 75+ series) [facility] Start: 05-26-2026 Screening for malignant neoplasm of breast Breast cancer screen [facility] Start: 05-17-2026 End: 05-17-2026 Patient encounter procedure 05/17/2026 10:20 AM EDT Office Visit [facility] Part of [address] [place], [place] [id number] Shelby Castillo APRN - [facility] [address] [place] [address] Annual [facility] Part [facility] Comment on above: Annual Start: 03-13-2026 End: 02-24-2027 US.doppler Carotid arteries - bilateral Vascular US Carotid Artery Duplex Bilateral Vascular Ultrasound Routine Bilateral carotid artery stenosis Expected: 03/13/2026 (Approximate), Expires: 02/24/2027 [facility] Work Phone: Comment on above: Expected: 03/13/2026 (Approximate), Expi res: 02/24/2027 Start: 03-01-2026 End: 03-01-2026 Patient encounter procedure 03/01/2026 10:30 AM EDT Office Visit [place] [id number] [place] [address] Lul Rose DO [address] [facility] [address] [address] [place] [address] [facility] Start: 02-16-2026 End: 02-16-2026 Patient encounter procedure 02/16/2026 9:45 AM EDT Appointment [facility] [address] [facility] [address] [place] [address] [facility] Start: 06-13-2025 Influenza vaccination Influenza Vaccine (Season Ended) [facility] Start: 05-26-2025 Screening for malignant neoplasm of breast Mammogram [facility] Start: 05-16-2025 End: 05-16-2025 Patient encounter procedure [facility] Part of [facility] Comment on above: yearly yearly--last seen by Dr Gutierrez Start: 05-13-2025 Influenza vaccination [facility] Start: 03-17-2025 End: 03-17-2025 Patient encounter procedure [facility] Start: 03-03-2025 Bacteria identified in Urine by Culture Urine Culture [facility] Start: 03-03-2025 Urine culture [facility] Start: 02-24-2025 End: 02-24-2027 NM Heart Perfusion W stress and W radionuclide IV Nuclear Stress Test Cardiac Nuclear Medicine Routine Preop cardiovascular exam ASHD (arteriosclerotic heart disease) History of PTCA Myocardial infarction, unspecified TN type, unspecified artery (Multi) Essential hypertension Expected: 02/24/2025 (Approximate), Expires: 02/24/2027 [facility] Service Area Work Phone: Comment on above: Expected: 02/24/2025 (Approximate), Expi res: 02/24/2027 Start: 02-24-2025 End: 02-24-2025 Patient encounter procedure 02/24/2025 10:30 AM EDT Office Visit [facility] [address] [facility] [address] [place] [address] Lul Rose DO [address] [facility] [address] [place] [address] [facility] Start: 02-10-2025 Medicare Annual Wellness Visit Medicare Annual Wellness Visit (AWV) [facility] Start: 01-17-2025 COVID-19 Vaccine ( season) COVID-19 Vaccine ( season) [facility] Start: 01-17-2025 COVID-19 Vaccine ( season) COVID-19 Vaccine ( season) [facility] Start: 01-17-2025 COVID-19 Vaccine ( season) COVID-19 Vaccine ( season) [facility] Start: 06-13-2024 Influenza vaccination Influenza Vaccine (Season Ended) [facility] Start: 05-13-2024 Influenza vaccination Flu vaccine (#1) [facility] Start: 04-08-2024 End: 04-08-2024 Patient encounter procedure 04/08/2024 12:30 PM EDT Appointment [facility] [address] [facility] [address] [place] [address] [facility] Start: 03-15-2024 End: 03-15-2024 Patient encounter procedure 03/15/2024 Office Visit Obstetrics and Gynecology Thierry Betnacourt MD [address] [facility] [address] [place] [address] [facility] Part [facility] Start: 02-25-2024 End: 02-24-2025 Alanine aminotransferase [Enzymatic activity/volume] in Serum or Plasma by With P-5'-P Alanine Aminotransferase Lab Routine Mixed hyperlipidemia Expected: 02/25/2024 (Approximate), Expires: 02/24/2025 [facility] Work Phone: Comment on above: Expected: 02/25/2024 (Approximate), Expi res: 02/24/2025 Start: 02-25-2024 End: 02-24-2025 Aspartate aminotransferase [Enzymatic activity/volume] in Serum or Plasma by With P-5'-P Aspartate Aminotransferase Lab Routine Mixed hyperlipidemia Expected: 02/25/2024 (Approximate), Expires: 02/24/2025 [facility] Work Phone: Comment on above: Expected: 02/25/2024 (Approximate), Expi res: 02/24/2025 Start: 02-25-2024 End: 02-24-2025 Lipid 1996 panel - Serum or Plasma Lipid Panel Lab Routine Mixed hyperlipidemia Expected: 02/25/2024 (Approximate), Expires: 02/24/2025 [facility] Service Area Work Phone: Comment on above: Expected: 02/25/2024 (Approximate), Expi res: 02/24/2025 Start: 02-25-2024 End: 02-24-2026 US.doppler Carotid arteries - bilateral Vascular US Carotid Artery Duplex Bilateral Vascular Ultrasound Routine Bilateral carotid artery stenosis Expected: 02/25/2024 (Approximate), Expires: 02/24/2026 [facility] Work Phone: Comment on above: Expected: 02/25/2024 (Approximate), Expi res: 02/24/2026 Start: 02-17-2024 Pelvis X-ray XR pelvis 1-2V [facility] Start: 02-17-2024 X-ray of right knee XR knee RT 4V* [facility] Start: 02-17-2024 XR Knee - right 4 [facility] Start: 02-17-2024 XR Pelvis 1 or 2 Views [facility] Start: 09-08-2023 Annual Wellness Visit (Medicare) Annual Wellness Visit (Medicare) [facility] Start: 08-01-2023 Screening for malignant neoplasm of breast Breast cancer screen [facility] Start: 06-13-2023 COVID-19 Vaccine ( season) COVID-19 Vaccine ( season) [facility] Start: 06-13-2023 COVID-19 Vaccine ( season) COVID-19 Vaccine ( season) [facility] Start: 02-27-2023 FUV, Provider: Lul Rose, Status: Pen, Time: 10:40 AM FUV, Provider: Lul Rose, Status: Pen, Time: 10:40 AM -[facility] [place] DO Work Phone: Start: 02-24-2023 End: 02-24-2023 Patient encounter procedure 02/24/2023 Office Visit Obstetrics and Gynecology Thierry Betancourt MD [address] [place] [address] [address] [place] [address] [facility] Part [facility] Start: 08-02-2022 End: 08-02-2022 Patient encounter procedure 08/02/2022 Office Visit Obstetrics and Gynecology Thierry Betancourt MD [address] [place], [place] [id number] [facility] Part [facility] Start: 08-01-2022 Screening for malignant neoplasm of breast Mammogram [facility] Start: 07-25-2022 Creatinine measurement Creatinine [facility] Start: 07-25-2022 Potassium [Moles/volume] in Serum or Plasma Potassium [facility] Start: 07-07-2022 Screening for malignant neoplasm of breast Breast cancer screen [facility] Work Phone: Start: 06-25-2022 Pneumococcal Vaccine: 65+ Years (2 of 2 - PCV) Pneumococcal Vaccine: 65+ Years (2 of 2 - PCV) [facility] Start: 06-13-2022 Influenza [facility]ed[facility] Start: 05-13-2022 Influenza vaccination Flu vaccine (#1) [facility] [employer] [facility] Start: 05-12-2022 DIABETES SCREEN DIABETES SCREEN [facility] Start: 02-18-2022 End: 02-18-2022 Patient encounter procedure 02/18/2022 Office Visit Obstetrics and Gynecology Thierry Betancourt MD [address] [place], [place] [id number] [facility] Start: 10-13-2021 ADVANCE DIRECTIVE DISCUSSION ADVANCE DIRECTIVE DISCUSSION [facility] Start: 10-06-2021 COVID-19 Vaccine (4 - Booster for Moderna series) COVID-19 Vaccine (4 - Booster for Moderna series) [facility] [employer] [facility] Start: 07-13-2021 Pneumococcal 65+ years Vaccine (2 - PCV) Pneumococcal 65+ years Vaccine (2 - PCV) [facility] Start: 06-13-2021 Influenza vaccination [facility] Work Phone: Start: 06-13-2020 Influenza vaccination Flu vaccine (Season Ended) [place] Start: 02-24-2020 End: 02-24-2020 Patient encounter procedure 02/24/2020 Office Visit Gynecologic Oncology Bailey Mendez MD [address] [place] [address] [phone] [facility] Start: 06-13-2019 Influenza vaccination Flu vaccine (#1) [place], [place] Start: 06-03-2019 Creatinine measurement Creatinine monitoring [facility] Start: 06-03-2019 Creatinine monitoring Creatinine monitoring [place], [place] Start: 06-03-2019 Potassium monitoring Potassium monitoring [place], [place] Start: 05-07-2019 Adult depression screening assessment DEPRESSION SCREENING [facility] Start: 04-04-2019 Annual Wellness Visit (AWV) Annual Wellness Visit (AWV) [facility] Start: 2017 BONE DENSITY BONE DENSITY [facility] Start: 2017 DEXA (modify frequency per FRAX score) DEXA (modify frequency per FRAX score) [place], [place] Start: 2017 Pneumococcal 65+ years Vaccine (1 of 1 - PPSV23) Pneumococcal 65+ years Vaccine (1 of 1 - PPSV23) [place] Start: 2017 PNEUMOVAX AGE 65 AND OVER WITH 5YR LOOKBACK (#1) PNEUMOVAX AGE 65 AND OVER WITH 5YR LOOKBACK (#1) [facility] Start: 2012 Respiratory Syncytial Virus (RSV) or age 60 yrs+ (1 - 1-dose 60+ series) Respiratory Syncytial Virus (RSV) or age 60 yrs+ (1 - 1-dose 60+ series) [facility] Start: 2012 RSV High Risk: (Elderly (60+) or Population) (1 - Risk 60-74 years 1-dose series) RSV High Risk: (Elderly (60+) or Population) (1 - Risk 60-74 years 1-dose series) [facility] Start: 2012 RSV patients and/or patients aged 60+ years (1 - 1-dose 60+ series) RSV patients and/or patients aged 60+ years (1 - 1-dose 60+ series) [facility] Start: 2007 Screening for osteoporosis DEXA (modify frequency per FRAX score) [facility] Start: 2002 Breast cancer screen Breast cancer screen [place], [place] Start: 2002 Colon cancer screen colonoscopy Colon cancer screen colonoscopy [place], [place] Start: 2002 Screening for malignant neoplasm of breast Breast cancer screen [place], [place] Start: 2002 Screening for malignant neoplasm of colon Colon cancer screen colonoscopy [place], [place] Start: 2002 Shingles Vaccine (1 of 2) Shingles Vaccine (1 of 2) [facility] Start: 2002 SHINGRIX VACCINE (1 of 2) SHINGRIX VACCINE (1 of 2) [facility] Start: 2002 Zoster Vaccines (1 of 2) Zoster Vaccines (1 of 2) [facility] Start: 1997 COLOGUARD (FIT-DNA) COLOGUARD (FIT-DNA) [facility] Start: 1997 Colonoscopy COLONOSCOPY [facility] Start: 1997 COLORECTAL CANCER SCREENING COLORECTAL CANCER SCREENING [facility] Start: [address] COLONOGRAPHY [facility] Start: 1997 FECAL OCCULT BLOOD FECAL OCCULT BLOOD [facility] Start: 1997 LIPID SCREEN LIPID SCREEN [facility] Start: 1997 Screening for malignant neoplasm of colon [facility] Start: 1997 SIGMOIDOSCOPY SIGMOIDOSCOPY [facility] Start: 1992 Diabetes screen Diabetes screen [place], [place] Start: 1992 Lipid panel Lipids [facility] Start: 1992 Mammography MAMMOGRAM [facility] Start: 1987 Diabetes screen Diabetes screen [facility] Start: 1974 DTaP/Tdap/Td Vaccines (1 - Tdap) DTaP/Tdap/Td Vaccines (1 - Tdap) [facility] Start: 1971 DTaP/Tdap/Td vaccine (1 - Tdap) DTaP/Tdap/Td vaccine (1 - Tdap) [facility] Start: 1971 Urine microalbumin profile DTAP,TDAP,TD (1 - Tdap) [facility] Start: 1970 ANNUAL PCP TEAM CHRONIC DISEASE VISIT ANNUAL PCP TEAM CHRONIC DISEASE VISIT [facility] Start: 1970 Diabetes mellitus screening Diabetes Screening [facility] [facility] Start: 1970 Hepatitis B surface antibody level LDL CHOLESTEROL [facility] Start: 1970 HEPATITIS C SCREENING HEPATITIS C SCREENING [facility] Start: 1970 Hepatitis C screening [facility] Start: 1970 Thyroid stimulating hormone measurement TSH [facility] Start: 1968 COVID-19 Vaccine (1) COVID-19 Vaccine (1) [facility] [employer] Work Phone: Start: 1964 Depression Screen Depression Screen [facility] Start: 1962 Lipid panel [facility] Start: 1962 Lipid screen Lipid screen [facility] [place] Start: 1957 COVID-19 VACCINE (1) COVID-19 VACCINE (1) [facility] Start: 1950 Annual Wellness Visit (AWV) Annual Wellness Visit (AWV) [facility] Start: 1952 Hepatitis C screen Hepatitis C screen [facility] [place] [place] Start: 1952 Hepatitis C screening Hepatitis C screen [facility] [place] Start: 1952 Lipid panel Lipid Panel [facility] Start: 1950 Medicare Annual Wellness Visit Medicare Annual Wellness Visit (AWV) [facility] Start: 1950 Screening for malignant neoplasm of colon [facility] Start: 1952 Thyroid stimulating hormone measurement [facility] Start: 1952 TSH Qn TSH testing [employer] [place], [place] Start: 1952 TSH testing TSH testing [facility] [place], [place] [employer] Bacteria identified in Urine by Culture [facility] End: 03-27-2025 Basic metabolic 2000 panel - Serum or Plasma Basic Metabolic Panel Lab Routine Daily for 3 Days starting 03/25/2025 until 03/27/2025, 1 completed [facility] Work Phone: Comment on above: Daily for 3 Days starting 03/25/2025 unt il 03/27/2025, 1 completed Basic metabolic 2000 panel - Serum or Plasma Basic Metabolic Panel Lab Routine 03/26/2025 4:30 AM EDT [facility] Work Phone: End: 03-24-2025 Blood glucose - POCT [facility] Work Phone: Comment on above: One Time for 1 Occurrences starting 03/13 until 03/24/2025 End: 05-12-2024 Culture, Genital [employer] Work Phone: Comment on above: 1 Occurrences starting 05/12/2024 until 05/12/2024 End: 04-03-2020 Cytopathology procedure, preparation of smear, genital source [employer] Lab Routine Encounter for screening for malignant neoplasm of other genitourinary organs H/O cancer of uterus 1 Occurrences starting 04/03/2020 until 04/03/2020 [employer] Comment on above: 1 Occurrences starting 04/03/2020 until 04/03/2020 End: 02-19-2021 Cytopathology procedure, preparation of smear, genital source PAP SMEAR Lab Routine Encounter for screening for malignant neoplasm of other genitourinary organs 1 Occurrences starting 02/19/2021 until 02/19/2021 [employer] Phone: Comment on above: 1 Occurrences starting 02/19/2021 until 02/19/2021 End: 07-23-2021 Cytopathology procedure, preparation of smear, genital source PAP SMEAR Lab Routine Endometrial cancer (HCC) Encounter for screening for malignant neoplasm of other genitourinary organs 1 Occurrences starting 07/23/2021 until 07/23/2021 [employer] Phone: Comment on above: 1 Occurrences starting 07/23/2021 until 07/23/2021 End: 08-05-2019 Cytopathology procedure, preparation of smear, genital source PAP SMEAR Lab Routine Encounter for screening for malignant neoplasm of vagina Endometrial cancer (HCC) 1 Occurrences starting 08/05/2019 until 08/05/2019 [employer] Comment on above: 1 Occurrences starting 08/05/2019 until 08/05/2019 End: 02-18-2022 Cytopathology procedure, preparation of smear, genital source PAP [employer] Lab Routine H/O cancer of uterus Endometrial cancer (HCC) Encounter for screening for malignant neoplasm of other genitourinary organs 1 Occurrences starting 02/18/2022 until 02/18/2022 [employer] Phone: Comment on above: 1 Occurrences starting 02/18/2022 until 02/18/2022 End: 08-05-2022 Cytopathology procedure, preparation of smear, genital source PAP SMEAR Lab Routine H/O cancer of uterus Endometrial cancer ([facility]) Encounter for screening for malignant neoplasm of vagina 1 Occurrences starting 08/05/2022 until 08/05/2022 [employer] Work Phone: Comment on above: 1 Occurrences starting 08/05/2022 until 08/05/2022 End: 03-13-2023 Cytopathology procedure, preparation of smear, genital source P[employer] Lab Routine H/O cancer of uterus Endometrial cancer (HCC) Encounter for screening for malignant neoplasm of vagina 1 Occurrences starting 03/13/2023 until 03/13/2023 [employer] Phone: Comment on above: 1 Occurrences starting 03/13/2023 until 03/13/2023 End: 05-12-2024 Cytopathology procedure, preparation of smear, genital source PAP SME[employer] Lab Routine Encounter for screening for malignant neoplasm of vagina 1 Occurrences starting 05/12/2024 until 05/12/2024 [employer] Comment on above: 1 Occurrences starting 05/12/2024 until 05/12/2024 End: 05-16-2025 Cytopathology procedure, preparation of smear, genital source PAP SME[employer] Lab Routine MLT exam for high-risk Medicare patient Screening for HPV (human papillomavirus) 1 Occurrences starting 05/16/2025 until 05/16/2025 [employer] Work Phone: Comment on above: 1 Occurrences starting 05/16/2025 until 05/16/2025 End: 03-27-2025 Hemoglobin and Hematocrit Hemoglobin and Hematocrit Lab Routine Daily for 3 Days starting 03/25/2025 until 03/27/2025, 2 completed [facility] Work Phone: Comment on above: Daily for 3 Days starting 03/25/2025 unt il 03/27/2025, 2 completed Oxygen therapy [[facility] Data Set] Initiate Oxygen Therapy Protocol Respiratory Care Routine As Needed until discontinued starting 03/24/2025 [facility] Work Phone: Comment on above: As Needed until discontinued starting Patient Education Community-acqu ired pneumonia in adults [facility] Work Phone: Patient referral [facility] Work Phone: Spirometry panel Incentive nabil metry Respiratory Care Routine Every 2hr while awake until discontinued starting 03/24/2025 [facility] Work Phone: Comment on above: Every 2hr while awake until discontinued starting 03/24/2025 [facility] Immunizations Immunization Date Immunization Notes Care Provider Lesli pimentel 08-15-2022 Moderna COVID-19 vaccine, bivalent, blue cap/bunch label *Check age/dose* Lul Rose Work Phone: [facility] Work Phone: 07-30-2022 influenza, seasonal, injectable Lul Rose DO Work Phone: [facility] Work Phone: 07-30-2022 influenza virus vaccine, unspecified formulation Lul Rose DO Work Phone: [facility] Work Phone: 07-26-2021 influenza virus vaccine, split virus (incl. purified surface antigen) Anu Gordillo Other [employer] Other 07-26-2021 influenza virus vaccine, unspecified formulation [facility] 06-25-2021 pneumococcal polysaccharide vaccine, 23 valent Lul Rose DO Work Phone: [facility] Work Phone: 01-04-2021 Moderna COVID-19 Vaccine 100 MCG/0.5ML Intramuscular Suspension Aurelia Quiroga Work Phone: [facility] 12-06-2020 Moderna COVID-19 Vaccine 100 MCG/0.5ML Intramuscular Suspension Aurelia Quiroga Work Phone: [facility] 08-02-2020 influenza virus vaccine, split virus (incl. purified surface antigen) Anu Gordillo Other [employer] Other 08-02-2020 influenza virus vaccine, unspecified formulation [facility] 07-18-2020 pneumococcal conjuga te vaccine, 13 valent Anu Gordillo Other [facility] 07-13-2020 influenza virus vaccine, unspecified formulation Aurelia Omalley Kimber Work Phone: [facility] Vaavud DO Work Phone: 07-13-2020 influenza, seasonal, injectable Lul Rose DO Work Phone: [facility] Work Phone: 07-13-2020 pneumococcal polysaccharide vaccine, 23 valent Aurelia Quiroga Work Phone: [facility] Va[facility] DO Work Phone: NEGATED: Highlighted row has not occurred!06-25-2021 pneumococcal polysaccharide vaccine, 23 valent Anu Gordillo Other [employer] Other Payers Date Payer Category Payer Self-pay [id number] 2024 Unknown 2022 Managed Care (Private) [id number] 2022 Private Health Insurance [id number] 2014 Medicare MEDICARE ILROA D MEDICARE xxxxxxxxxxx 2014-Present [phone] [place] [address] xxxxxxxxxxx [id number] 2014 Private Health Insurance UNITED HEALTHCARE UNITED HEALTHCARE MEDICARE SUPP xxxxxxxxx 2014-Present [phone] [address] [place] [address] xxxxxxxxx [id number] 2010 Medicare MEDICARE RAILROA D MEDICARE RAILROAD PB ONLY [id number] 2010-Present [phone] [address] [address] [place] [address] Medicare [id number] 2010 Medicare [id number] .[id number] 2010 Medicare [id number] [id number] .[id number] 1959 Medicare [id number] 1959 Private Health Insurance [id number] 1952 Unknown [id number] 2.16.840.1.469864.3.579.2 .175 1952 Unknown [id number] 2.16.840.1.031008.3.579.2 .175 1952 Unknown [id number] 2.16.840.1.632747.3.579.2 .175 1952 Unknown [id number] 2.16.840.1.867425.3.579.2 .593 1952 Unknown [id number] 2.16.840.1.311868.3.579.2 .593 1952 Unknown [id number] 2.16.840.1.381775.3.579.2 .593 1952 Unknown [id number] 2.16.840.1.127118.3.579.2 .593 1952 Unknown [id number] 2.16.840.1.614968.3.579.2 .593 1952 Unknown [id number] 2.16.840.1.881228.3.579.2 .593 1952 Unknown [id number] 2.16.840.1.593100.3.579.2 .356 1952 Unknown [id number] 2.16.840.1.319388.3.579.2 .356 1952 Unknown [id number] 2.16.840.1.193760.3.579.2 .1244 1952 Unknown [id number] 2.16.840.1.818573.3.579.2 .1246 1952 Unknown [id number] 2.16.840.1.648069.3.579.2 .1246 1952 Unknown [id number] 2.16.840.1.702745.3.579.2 .1246 1952 Unknown [id number] 2.16.840.1.806237.3.579.2 .1246 1952 Unknown [id number] 2.16.840.1.097962.3.579.2 .1246 1952 Unknown [id number] 2.16.840.1.892594.3.579.2 .196 1952 Unknown [id number] 2.16.840.1.430365.3.579.2 .173 1952 Unknown [id number] 2.16.840.1.599896.3.579.2 .754 Unknown [id number] 2.16.840.1.427953.3.579.2 .531 Social History Date Type Detail Facility Start: 04-03-2020 End: 05-16-2025 Tobacco smoking status NHIS Former smoker [facility] Start: 04-03-2020 End: 05-16-2025 Alcohol intake Current non-drinker of alcohol (finding) [facility] Start: 1950 Sex Assigned At [facility] file [facility] Start: 02-19-2021 End: 05-16-2025 Tobacco use and exposure Never used [facility] Start: 08-05-2019 End: 03-24-2025 Alcohol intake No [facility] Start: 10-13-1969 End: 10-13-1986 History of tobacco use Current smoker [facility] Start: 10-13-1969 End: 10-13-1986 History of tobacco use Cigarette Smoker [facility] Start: 02-25-2024 End: 03-24-2025 Caffeine use Caffeine use [facility] Start: 1950 Sex Assigned At Female F [facility] Start: 02-25-2024 End: 02-24-2025 Alcoholic beverage intake Lifetime non-drinker (finding) [facility] Work Phone: Start: 02-15-2024 End: 03-17-2025 Exposure to SARS-CoV-2 (event) Not sure [facility] Start: 02-16-2013 End: 03-04-2025 Sex Female (finding) [facility] Has the [employer], oil, or water company threatened to shut off services in your home in past 12Mo No [facility] (I/We) worried marixa er (my/our) food would run out before (I/we) got money to buy more. Never true [facility] Work Phone: In the past 12 month s, has lack of transportation kept you from medical appointments or from getting medications? No [facility] Work Phone: NEGATED: Highlighted row [facility] Medical Equipment Procedure Code Equipment Code Equipment Origin al Text Equipment Identifier Dates Biomet Bone Ceme nt R 1x40us - [id number] Start: 03-24-2025 Biomet Bone Ceme nt R 1x40us - [id number] Start: 03-24-2025 All Poly Pat Ve 32 Mm Susan - [id number] Start: 03-24-2025 Psn Tib Stm 5 De g Sz E R - [id number] Start: 03-24-2025 Psn Fem Cr Cmt C ocr Std Sz6 R - [id number] Start: 03-24-2025 Psn Mc Ve Asf R 11mm 6-7/Ef - [id number] Start: 03-24-2025 Clinical Notes 11-13-2015 to 05-30-2025 Anya Flores RN - 03/26/2025 1:17 PM Rhona Ro RN - 03/25/2025 6:08 PM Rhona Ro RN - 03/25/2025 3:54 PM Rhona Ro RN - 03/25/2025 3:28 PM EDT Note Date & Type Note Facility 05-30-2025 Note Indication for Surge ry Patient is a 74-year-old female who presented for evaluation of stiff right total knee arthroplasty. Patient about right total knee arthroplasty 2 months ago. She subsequently was able to progress with therapy but had difficulty obtaining deep flexion. Radiographs demonstrated well aligned well-fixed total knee arthroplasty. She had no evidence of infection. Discussion had with patient regarding right knee manipulation under anesthesia to release adhesions and improve range of motion. Discussed procedure, risk, benefits, and alternatives including but not limited to fracture, stiffness, hardware failure, continued pain, need for additional surgery, and risk of anesthesia. Patient understood the risks and elected to proceed with surgery. Preoperative Diagnosis 1. Painful right total knee arthroplasty 2. Arthrofibrosis right total knee arthroplasty Postoperative Diagnosis 1. Painful right total knee arthroplasty 2. Arthrofibrosis right total knee arthroplasty Operation 1. Right knee manipulation under anesthesia Surgeon(s) Aren KILLIAN, Yari Sutton (Surgeon - Primary) Sales Marketing Manager None Anesthesia Monitored Anesthesia Care Manoj KILLIAN, Morgan Najera (Senior Net Architect) Delfino Bains (Provider) Estimated Blood Loss 0 mL Urine Output 0 mL Findings Preoperative range of motion 5 to 100 degrees. Postoperative range of motion 0 to 125 degrees. Specimen(s) None Complications None Technique Procedure: Patient was identified and greeted the preoperative holding area. The correct surgical site was identified and marked. Surgical consent was obtained and placed in the chart. Patient was taken to the operative suite and transported operative table. Patient received sedation per anesthesia. Surgical timeout was performed confirming correct surgical site, patient, and procedure. Once patient was relaxed the knee was taken the range of motion noted to have approximately 5 to 100 degrees range of motion. The hip was then flexed up as well as the knee. Pressure was placed on the proximal tibia and the knee was able to be flexed back. There was palpable and audible release of adhesions. The knee was able to be flexed back to approximately 125 degrees. The knee was also taken out into extension and stress placed on the knee. The knee was able to get to 0 degrees. The knee was taken to range of motion noted to have good stability with good patellar tracking. Patient was awakened from anesthesia and transported the patient bed. Patient was taken to the PACU in stable condition. Disposition: Patient be discharged from PACU medically stable. Weightbearing as tolerated. Outpatient therapy to start tomorrow. P.o. pain control. Outpatient follow-up in 2 weeks for repeat clinical and radiographic evaluation. Tourniquet Time None Sponge/Needle Count Final sponge and needle counts were correct Fluid Count 300 mL crystalloid Catheters, Drains, Tubes None Electronically signed by Aren KILLIAN, Yari Sutton 05/30/25 12:[address] [facility] 03-26-2025 History of Presen t illness Narrative Discharge instructions reviewed with patient and . Voice understanding. Pt taken to private car via wheelchair. Pt dimitri well. Pt given HS snack of Sprite and Chips to increase sodium level. Pt reminded she must lay without any pillows under her Rt knee - reminded she needs to keep knee flat to the bed Dr. Rin Younger called and updated on Na level and 's plan of care . Dr. Younger states his PA will be around in the am to see the patient tomorrow. Pt and her updated on plan of care - Hyponatremia and the treatment explained - questions invited and answered. Pt aware she would need to stay thru tonight. I was asked to look at the patient's sodium level. Sodium is 130. 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 I do not believe any specific therapy is needed. I will plan to repeat BMP in 5 days. Images from the original note were not included. [facility] SUR[facility] PHYSICAL THERAPY EVALUATION ATTEMPT Date: 03/24/2025 Patient Name: Garth Olguin : 1950 (74 y.o.) Gender: female DIAGNOSIS [...] immediately. Patient inappropriate for PT evaluation this date. Will check back tomorrow morning . Poonam Crawley, PT , DPT, AIB-VR/CON, CSRS License #[id number] Verified with Dr. Younger that he knew patient has a nickel allergy. He said we were OK to go. Covid screening reviewed. Patient denies any positive [...] bathe. Limit make-up and remove dark nail sami if applicable. Bring any braces, assistive devices, crutches, harman hose on the day of surgery if [...] before please call the surgery center at [phone] ext [phone] by 4pm. Discharge discussed. Verbalized understanding acknowledged. VTE: risk. Educational material to be given to patient. documented in this encounter [facility] Work Phone: 03-26-2025 Hospital course Narrative Physician Discharge Summary Patient ID: Garth Olguin [id number] 74 y.o. 1950 Admit date: 03/24/2025 Discharge date and time: No discharge date for patient encounter. Admitting Physician: Yari Younger MD Discharge Physician: Jaziel Martinez MD Admission Diagnoses: Right knee pain, unspecified [...] found to be low at 129. After normal saline infusion sodium level had dropped to 126. 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 Patient was initiated on sodium tablets and observed for an additional 24 hours. On the morning of discharge the sodium level was increased to 129. Plan will be to discharge the patient home to continue 2 g of sodium tablets twice daily for 5 days. I have given the patient a prescription for repeat electrolyte panel to be done this coming Friday. These results will be sent to the patient's primary care provider. The patient did participate in physical occupational therapy while in the hospital postoperatively. Patient made good though slow progress. Patient is [...] BP (!) 155/61 Pulse 60 Temp 98.4 F (36.9 C) (Oral) Resp 16 Ht 1.626 m (5' 4 ) Wt 82.9 kg (182 lb 12.2 oz) SpO2 96% BMI 31.37 kg/m Physical Exam Cardiovascular: Rate and Rhythm: Normal [...] Friday of This Coming Week. Follow-up Appointments: Aurelia Quiroga MD within [address] [...] Your Medications These medications were sent to [id number] [address] [place] [address] - F [phone] [place] [phone] aspirin 325 MG tablet oxyCODONE 5 MG immediate release tablet pregabalin 75 MG capsule Discharge Instructions: Please return to hospital if you have fever, chills, night sweats, chest pain, shortness of breath, or any other new concerning symptoms. Parts of this note may have been dictated utilizing voice recognition software. This may lead to occasional errors in [employer]man. Care is taken to minimize these errors. If the reader of this note has any questions regarding potential errors, please contact me right away for clarification. documented in this encounter [facility] Work Phone: 03-24-2025 Hospital Discharg e instructions Nereida Romeo PA - 03/24/2025 1:39 PM [...] ice pack to prevent frostbite Contact [facility] office if Increased redness, swelling, drainage of [...] a reaction to a medication. - [facility] Follow up with Surgeon at scheduled appointment time. documented in this encounter [facility] Work Phone: 03-01-2025 Evaluation note Diagnosis Onset Date Resolution Dyslipidemia acute March 01 11:23am Hypothyroidism acute March 01, 2025 11:23am Preoperative clearance acute Ma 2024 11:23am Primary osteoarthritis of right knee acute March 01, 2025 11:23am CAD (coronary artery disease) chronic March 01, 2025 11:23am HTN (hypertension) chronic March 012024 11:23am [facility] Work Phone: 1(963) 271-324105-15-2025 History of Present illness Narrative* Lul Rose, DO - 02/24/2025 10:30 AM EDT Chief Complaint Patient presents with Annual Exam 1 year, arteriosclerotic heart disease Subjective Garth Olguin is a 74 y.o. female 74-year-old female returns for annual cardiovascular office visit as well as for preoperative clearance prior to right knee replacement within the next month. She is doing well from a cardiovascular standpoint with no angina or shortness of breath or nitrate usage or hospitalizations or clinical events. She underwent PCI of the RCA in 2016 followed by IFR assessment of the trifurcating circumflexmarginal branch system thereafterwards (negative and therefore no [...] tablet, Daily nitroglycerin (NITROSTAT) 0.3 mg omega 6-suv-vaa-fish oil (Fish OiL) 1,000 mg (120 mg-180 mg) capsule 1 capsule, Daily TURMERIC ORAL 1 capsule, Daily xylitoL (XyliMelts) 550 mg muco-adhesive buccal tablet Daily Assessment/Plan 1. Preop cardiovascular exam 2. ASHD (arteriosclerotic heart disease) Follow Up In Cardiology 3. History of PTCA 4. Myocardial infarction, unspecified [place] type, unspecified artery (Multi) 5. Mixed hyperlipidemia 6. Essential hypertension 7. PFO (patent foramen ovale) ([facility]) 8. Bilateral carotid artery stenosis 9. TIA [...] exam, discussion and plan. [facility]: 1(487) 692-458805-15-2025 Instructions* Patient Instructions* Phylicia Vivar LPN - 02/24/2025 [...] sent through Care Everywhere. * DASH Diet (Tajik) [facility] Work Phone: 1(521) 194-552205-15-2024 History of Present illness Narrative* Lul Rose DO - 02/25/2024 10:30 AM EDT Subjective Garth Olguin is a 73 y.o. female Chief Complaint Annual Exam 73-year-old female returns for annual follow-up she is doing well she denies any cardiovascular events, symptoms, complaints, nitrate usage or hospitalizations or recurrent TIA events. She has had remote PCI of the RCA 2016, previous TIA with documented PFO. She denies any recurrent events however she also continues to hold back on referral for structural heart referral for PFO closure. She does have a mild to moderate bilateral carotid vascular disease, last imaging procedure was 2020. She remains on appropriate therapies including aspirin, statin, fish oil and metoprolol. She is offher valsartan altogether. She is active doing everything she wants to do without any complaints or hindrance. Recommendations: Obtain lipid panel, will also proceed with carotid duplex imaging to continue ongoing carotid surveillance, follow-up in 1 year Review of Systems All other systems reviewed and are negative. Vitals: 02/25/24 1028 BP: 138/82 BP Location: Right arm Patient Position: Sitting Pulse: 72 Weight: 77.1 kg (170 lb) Height: 1.626 m (5' 4 ) [...] normal. Allergies Ciprofloxacin Current Medications Current Outpatient Medications: acetaminophen (TylenoL) 325 mg tablet, Take 1-2 tablets (325-650 mg) by mouth every 4 hours if needed., Disp: , Rfl: ascorbic acid, vitamin C, 500 mg capsule, Take 1 capsule by mouth once daily., Disp: , Rfl: aspirin 81 mg EC tablet, Take 1 tablet (81 mg) by mouth once daily., Disp: , Rfl: atorvastatin (Lipitor) 20 mg tablet, Take 1 tablet (20 mg) by mouth. Mon - fri only, Disp: , Rfl: BACILLUS COAGULANS-INULIN ORAL, Take 1 capsule by mouth once daily., Disp: , Rfl: busPIRone (Buspar) 5 mg tablet, Take 1 tablet (5 mg) by mouth. Use as directed, Disp: , Rfl: cholecalciferol (Vitamin D-3) 25 MCG (1000 UT) tablet, Take 1 tablet (25 mcg) by mouth once daily.,Disp: , Rfl: dicyclomine (Bentyl) 20 mg tablet, Take 1 tablet (20 mg) by mouth. As directed, Disp: , Rfl: glucosamine-chondroitin 500-400 mg tablet, Take 1 tablet by mouth early in the morning.., Disp: , Rfl: HALOBETASOL PROPIONATE TOP, Use as directed, Disp: , Rfl: levothyroxine (Synthroid, Levoxyl) 100 mcg tablet, Take 1 tablet (100 mcg) by mouth every other day., Disp: , Rfl: levothyroxine (Synthroid, Levoxyl) 88 mcg tablet, Take 1 tablet (88 mcg) by mouth every other day.,Disp: , Rfl: metoprolol succinate XL (Toprol-XL) 25 mg 24 hr tablet, Take 1 tablet (25 mg) by mouth once daily.,Disp: , Rfl: MULTIVITAMIN ORAL, Take 1 tablet by mouth once daily., Disp: , Rfl: nitroglycerin (Nitrostat) 0.3 mg SL tablet, Place 1 tablet (0.3 mg) under the tongue., Disp: , Rfl: omega 1-ovz-gob-fish oil (Fish OiL) 1,000 mg (120 mg-180 mg) capsule, Take 1 capsule (1,000 mg) by mouth once daily., Disp: , Rfl: TURMERIC ORAL, Take 1 capsule by mouth once daily., Disp: , Rfl: xylitoL (XyliMelts) 550 mg muco-adhesive buccal tablet, Take by mouth once daily., Disp: , Rfl: Assessment/Plan 1. ASHD (arteriosclerotic heart disease) 2. History of PTCA 3. Myocardial infarction, unspecified TN type, unspecified artery (Multi) 4. PFO (patent foramen ovale) ([facility]) 5. Essential hypertension 6. TIA (transient ischemic attack) 7. Former smoker 8. BMI 29.0-29.9,adult 9. Mixed hyperlipidemia 10. Bilateral carotid artery stenosis Scribe Attestation By signing my name below, [...] exam, discussion and plan. [facility] Phone: [phone]) 396-357305-15-2024 Instructions* Patient Instructions* Phylicia Vivar LPN - 02/25/2024 10:30 AM EDT Please bring all medicines, vitamins, and herbal supplements with you when you come to the office. Prescriptions will not be filled unless you are compliant with your follow up appointments or have a follow up appointment scheduled as per instruction of your physician. Refills should be requested at the time of your visit. BMI was above normal measurement. Current weight: 77.1 kg (170 lb) Weight change since last visit (-) denotes wt loss -3 lbs Weight loss needed to achieve BMI 25: 24.7 Lbs Weight loss needed to achieve BMI 30: -4.4 Lbs Provided instructions on dietary changes Provided instructions on exercise. [facility] Work Phone: [phone]) 342-726011-14-2023 Evaluation note* Encounter Date Diagnosis Assessment Notes Treatment Notes Treatment Clinical Notes Aug, Hypothyroidism, unspecified type (ICD-10 - E03.9) [facility] Other 10-25-2023 Evaluation note* Encounter Date Diagnosis Assessment Notes Treatment Notes Treatment Clinical Notes Jul, Dysuria (ICD-10 - R30.0) She is leaving for [place] on August 16. Discussed hematuria. History of cystoscopy several years ago. Did have a hysterectomy. Had a normal MLT exam earlier this year. Concern for recurrent infection versus microscopic hematuria on UA dipstick today. May warrant follow-up with a urologist in [place] for further cystoscopy. Jul, Hematuria, unspecified type (ICD-10 - R31.9) as above [facility] Other 10-16-2023 Evaluation note* Encounter Date Diagnosis Assessment Notes Treatment Notes Treatment Clinical Notes Jul, Dysuria (ICD-10 - R30.0) [facility] Other 09-29-2023 Evaluation note* Encounter Date Diagnosis Assessment Notes Treatment Notes Treatment Clinical Notes Jun, Pneumonia due to infectious organism, unspecified laterality, unspecified part of lung (ICD-10 - J18.9) Finish antibiotics - prescribed zpack by ER. Reviewed CXR and discussed ER visit and labs w pt Jun, Hypothyroidism, unspecified type (ICD-10 - E03.9) Continue present meds. Alternates 100mcg and 88mcg. Advised continuing 88 in case the 100mcg is contributing to her tremor. [facility] Other 08-29-2023 Evaluation note* Encounter Date Diagnosis Assessment Notes Treatment Notes Treatment Clinical Notes May, Acute cystitis with hematuria (ICD-10 - N30.01) Finish antibiotic. Recheck urine at the hospital lab around 06/20 to make sure infection has cleared. Reviewed ER report w pt. Discussed ways of preventing UTIs. No urine culture in chart yet. [facility] Other 08-03-2023 Evaluation note* Encounter Date Diagnosis Assessment Notes Treatment Notes Treatment Clinical Notes May, Acute pain of right knee (ICD-10 - M25.561) May, Primary osteoarthritis of right knee (ICD-10 - M17.11) Patient injected with 6 ml of Synvisc One hyaluronic acid under sterile conditions. Patient tolerated well. Patient advised she may repeat these injections no earlier than 6 months post prior injection. Patient voiced understanding and states no further questions at this time. May, Sprain of right knee, unspecified ligament, initial encounter (ICD-10 - S83.91XA) [facility] Other 07-27-2023 Evaluation note* Encounter Date Diagnosis Assessment Notes Treatment Notes Treatment Clinical Notes Apr, Acute pain of right knee (ICD-10 - M25.561) Apr, Primary osteoarthritis of right knee (ICD-10 - M17.11) Patient continues to experience joint pain and we will now apply for hyaluronic acid injections. Patient has failed other conservative treatments including oral NSAIDs or topical medications, acetaminophen, home therapy exercises and cortisone injections for a trial of 3 months or longer. Apr, Sprain of right knee , unspecified ligament, initial encounter (ICD-10 - S83.91XA) Garth presents with complaint of acute right knee pain secondary to a twisting injury. Radiographs reviewed and discussed in detail with patient. We will treat this as a knee strain for now. We will begin gentle motion and strength exercise with hopes that the condition will improve with conservative measures. If pain persists and function is not improving we will need to consider MRI to assess for meniscal injury or other intra-articular injury. [facility] Other 06-19-2023 Evaluation note* Encounter Date Diagnosis Assessment Notes Treatment Notes Treatment Clinical Notes Mar, Sacroiliac inflammation (ICD-10 - M46.1) Referral placed to pain mgmt as recommended in the past by Dr. Melvin Quiroga.Continue daily exercise and activity. Mar, Scoliosis (and kyphoscoliosis), idiopathic (ICD-10 - M41.20) Reviewed notes from Dr. Liberty Quiroga. Followup w pain management [facility] Other 05-08-2023 Evaluation note* Encounter Date Diagnosis Assessment Notes Treatment Notes Treatment Clinical Notes February, Acute pain of right knee (ICD-10 - M25.561) Pt interested in more injections. Addressed questions about stem cell injection and cost due to insurance. She would like to avoid surgical procedures if possible. Requests referral to [facility] Advised OTC Voltaren. [facility] Other 10-28-2022 Evaluation note* Encounter Date Diagnosis Assessment Notes Treatment Notes Treatment Clinical Notes Jul, RLQ abdominal pain (ICD-10 - R10.31) Continue Dicyclomine. Pt to use 20mg twice a day scheduled. Okay to take an additional dose if needed. Okay to use otc simethicone as needed. Jul, Constipation (ICD-10 - K59.00) Start PEG based bowel regimen daily. Titration dosing discussed with patient. Jul, Diverticulosis of sigmoid colon (ICD-10 - K57.30) [facility] Other 07-15-2022 Evaluation note* Encounter Date Diagnosis Assessment Notes Treatment Notes Treatment Clinical Notes 15 Ramos, 2022 RLQ abdominal pain (ICD-10 - R10.31) [facility] Other 07-13-2022 Evaluation note* Encounter Date Diagnosis Assessment Notes Treatment Notes Treatment Clinical Notes Apr, RLQ abdominal pain (ICD-10 - R10.31) Apr, Irritable bowel syndrome with both constipation and diarrhea (ICD-10 - K58.2) Apr, Other CONTINUE DICYCLOMINE WITHOUT CHANGE CT ABD PELVIS W/ CONTRAST [facility] Other 06-19-2022 Reason for referral (narrative)* Reason *FU 04/[address] Liberty Quiroga last year, would like to revisit this office. Was leaving for [place] when she declined the referral last year. Diagnosis 1 Sacroiliac inflammat ion (M46.1) Referral Organization [facility] Referring Provider First Name Aurelia Referring Provider Last Name Kimber Referring Provider Specialty [facility] Referred Organization [facility] Referred Provider Jr. Carrillo William Referred Address [address] [place] [phone] Referred Provider Specialty Pain Medicin e Referral Priority Routine General Notes EulaliaEli jaimes 03:03:15 PM >received today, sent message to clarify office [facility] Other 02-01-2016 History general Narrative - Reported* Type Description Date Medical History scoliosis Medical History heart disease Medical History Esophageal reflux Surgical History cholecystectomy 11/2015 Surgical History back surgery 06/2013 Surgical History cystoscopy Surgical History tonsillectomy and adenoidectomy child Surgical History knee surgery-left knee Surgical History URETERAL STENT-RIGHT SIDE 7 Surgical History heart catheterization Surgical History heart stent Surgical History urethral stricture Hospitalization History See Above [facility] Other 02-01-2016 History general Narrative - Reported* Type Description Date Medical History scoliosis Medical History heart disease Medical History Esophageal reflux Medical History Nerve ablation, back Surgical History cholecystectomy 11/2015 Surgical History back surgery 06/2013 Surgical History cystoscopy Surgical History tonsillectomy and adenoidectomy child Surgical History knee surgery-left knee Surgical History URETERAL STENT-RIGHT SIDE 1-201 7 Surgical History heart catheterization Surgical History heart stent Surgical History urethral stricture Hospitalization History See Above [facility] Other 02-01-2016 History general Narrative - Reported* Type Description Date Medical History scoliosis Medical History heart disease Medical History Esophageal reflux Medical History Nerve ablation, back Surgical History cholecystectomy 11/2015 Surgical History back surgery 06/2013 Surgical History cystoscopy Surgical History tonsillectomy and adenoidectomy child Surgical History knee surgery-left knee Surgical History URETERAL STENT-RIGHT SIDE 1-201 7 Surgical History heart catheterization Surgical History heart stent Surgical History urethral stricture Surgical History HYSTERECTOMY Hospitalization History See Above [employer] Other Evaluation note* Diagnosis Encounter for screening for malignant neoplasm of other genitourinary organs documented in this encounter [employer] Phone: evaluation note* Diagnosis Endometrial cancer (HCC) Malignant neoplasm of corpus uteri, except isthmus Encounter for screening for malignant neoplasm of other genitourinary organs documented in this encounter [employer] Phone: [email or web address] note* Diagnosis Encounter for screening for malignant neoplasm of vagina Special screening for malignant neoplasms, vagina Endometrial cancer (HCC) Malignant neoplasm of corpus uteri, except isthmus documented in this encounter [facility] [place]* Diagnosis H/O cancer of uterus Personal history of malignant neoplasm of other parts of uterus Endometrial cancer (HCC) Malignant neoplasm of corpus uteri, except isthmus Encounter for screening for malignant neoplasm of other genitourinary organs documented in this encounter [employer] Phone: [email or web address] noteNo [facility] [employer] Other Evaluation note* Diagnosis H/O cancer of uterus Personal history of malignant neoplasm of other parts of uterus Endometrial cancer (HCC) Malignant neoplasm of corpus uteri, except isthmus Encounter for screening for malignant neoplasm of vagina Special screening for malignant neoplasms, vagina documented in this encounter [employer] Phone: [email or web address] noteNo assessment information [facility] Work Phone: Evaluation note* Diagnosis H/O cancer of uterus Personal history of malignant neoplasm of other parts of uterus Endometrial cancer (HCC) Malignant neoplasm of corpus uteri, except isthmus Encounter for screening for malignant neoplasm of vagina Special screening for malignant neoplasms, vagina documented in this encounter [facility] [employer] Work Phone: evaluation note* Diagnosis Onset Date Resolution Status Scoliosis acute [facility] Work Phone: Evaluation note* Diagnosis Onset Date Resolution Status Hypothyroidism acute Scoliosis acute HTN (hypertension) chronic Primary osteoarthritis of right knee acute [facility] Work Phone: Evaluation note* Diagnosis ASHD (arteriosclerotic heart disease) Coronary atherosclerosis of unspecified type of vessel, [place] or graft History of PTCA Postsurgical percutaneous transluminal coronary angioplasty status Myocardial infarction, unspecified TN type, unspecified artery (Multi) PFO (patent foramen ovale) ([facility]) Ostium secundum type atrial septal defect Essential hypertension Unspecified essential hypertension TIA (transient ischemic attack) Unspecified transient cerebral ischemia Former smoker Personal history of tobacco use, presenting hazards to health BMI 29.0-29.9,adult Mixed hyperlipidemia Bilateral carotid artery stenosis Occlusion and stenosis of carotid artery without mention of cerebral infarction [facility] Work Phone: Evaluation note* Diagnosis Onset Date Resolution Status Hypothyroidism acute Scoliosis acute HTN (hypertension) chronic Primary osteoarthritis of right knee acute Chronic pain acute Primary osteoarthritis of right knee acute Right knee pain acute [facility] Work Phone: Evaluation note* Diagnosis Onset Date Resolution Status Hypothyroidism acute Scoliosis acute HTN (hypertension) chronic Primary osteoarthritis of right knee acute Chronic pain acute Primary osteoarthritis of right knee acute Right knee pain acute Chronic pain acute Primary osteoarthritis of right knee acute Right knee pain acute [facility] Work Phone: Evaluation note* Diagnosis Onset Date Resolution Status Hypothyroidism acute Scoliosis acute HTN (hypertension) chronic Primary osteoarthritis of right knee acute Chronic pain acute Primary osteoarthritis of right knee acute Right knee pain acute Chronic pain acute Primary osteoarthritis of right knee acute Right knee pain acute Chronic pain acute Primary osteoarthritis of right knee acute Right knee pain acute [facility] Work Phone: Evaluation note* Diagnosis Acute vaginitis Vaginitis and vulvovaginitis, unspecified Encounter for screening for malignant neoplasm of vagina Special screening for malignant neoplasms, vagina documented in this encounter [facility]* Diagnosis Onset Date Resolution Status Chronic pain acute Primary osteoarthritis of right knee acute Right knee pain acute Chronic pain acute Primary osteoarthritis of right knee acute Right knee pain acute Chronic pain acute Primary osteoarthritis of right knee acute Right knee pain acute Chronic pain acute Primary osteoarthritis of right knee acute Right knee pain acute [facility] Work Phone: Evaluation note* Diagnosis Onset Date Resolution Status Chronic pain acute Primary osteoarthritis of right knee acute Right knee pain acute [facility] Work Phone: Evaluation note* Diagnosis Bilateral carotid artery stenosis Occlusion and stenosis of carotid artery without mention of cerebral infarction [facility] Work Phone: Evaluation note* Diagnosis Preop cardiovascular exam Pre-operative cardiovascular examination ASHD (arteriosclerotic heart disease) Coronary atherosclerosis of unspecified type of vessel, [place] or graft History of PTCA Postsurgical percutaneous transluminal coronary angioplasty status Myocardial infarction, unspecified TN type, unspecified artery (Multi) Mixed hyperlipidemia Essential hypertension Unspecified essential hypertension PFO (patent foramen ovale) ([facility]) Ostium secundum type atrial septal defect Bilateral carotid artery stenosis Occlusion and stenosis of carotid artery without mention of cerebral infarction TIA (transient ischemic attack) Unspecified transient cerebral ischemia Former smoker Personal history of tobacco use, presenting hazards to health BMI 29.0-29.9,adult [facility] Work Phone: Evaluation note* Diagnosis Preop cardiovascular exam Pre-operative cardiovascular examination ASHD (arteriosclerotic heart disease) Coronary atherosclerosis of unspecified type of vessel, [place] or graft History of PTCA Postsurgical percutaneous transluminal coronary angioplasty status Myocardial infarction, unspecified TN type, unspecified artery (Multi) Essential hypertension Unspecified essential hypertension [facility] Work Phone: Evaluation note* Diagnosis S/P total knee arthroplasty, right- Primary S/P total knee arthroplasty, right documented in this encounter [facility] Work Phone: Evaluation note* Diagnosis MLT exam for high-risk Medicare patient Screening for HPV (human papillomavirus) Special screening examination for human papillomavirus (HPV) documented in this encounter [facility] - [facility] [employer] Other Hospital Discharge instructions Additional Instructions You were found to have a pneumonia in your left lower lung. You were given a dose of azithromycin in the emergency department. Your antibiotic was sent to the pharmacy. Pick this up and take for the full course as prescribed Continue to follow-up with your primary care physician/geoscientist on Friday. Return to emergency department if you develop worsening chest pain, trouble breathing, fevers or chills and persistent nausea vomiting, excessively sleepy, dizzy, feel as if you are going to pass out, become pale or sweaty.[facility] Work Phone: Reason for visit Narrative* Cardiac Stress Testing (Routine) - Authorized Specialty Diagnoses / Procedures Referred By Chevy t Referred To Contact Radiology Diagnoses Preop cardiovascular exam ASHD (arteriosclerotic heart disease) History of PTCA Myocardial infarction, unspecified TN type, unspecified artery (Multi) Essential hypertension Procedures Nuclear Stress Test CHG MYOCARDIAL SPECT MULTIPLE STUDIES Lul Rose DO [address] [facility] [address], [address] [address] Phone: tel: fax: Referral ID Status Reason Start Date Expiration Date V isits Requested Visits Authorized [id number] Authorized 02/24/2025 02/24/[address] [place] [address] Work Phone: reason for visit Narrative* Cardiac Stress Testing (Routine) - Authorized Specialty Diagnoses / Procedures Referred By Contac t Referred To Contact Radiology Diagnoses Preop cardiovascular exam ASHD (arteriosclerotic heart disease) History of PTCA Myocardial infarction, unspecified TN type, unspecified artery (Multi) Essential hypertension Procedures Nuclear Stress Test CHG MYOCARDIAL SPECT MULTIPLE STUDIES Lul Rose DO [address] [facility], Jas [address] [place] [id number] Phone: tel: fax: Referral ID Status Reason Start Date Expiration Date V isits Requested Visits Authorized [id number] Authorized 02/24/2025 02/24/[address] [place] [address] Work Phone: Reason for visit Narrative* Auth/Cert Specialty Diagnoses / Procedures Referred By Contac t Referred To Contact Diagnoses Right knee pain, unspecified chronicity Osteoarthritis of right knee, unspecified osteoarthritis type Right knee pain, unspecified chronicity [M25.561] Osteoarthritis of right knee, unspecified osteoarthritis type [M17.11] Procedures MA ARTHRP KNE CONDYLE&PLATU MEDIAL&LAT COMPARTMENTS RIGHT TOTAL KNEE ARTHROPLASTY Yari Younger MD [address] [place] [address] Phone: tel: fax: [facility] [place] Phone: tel: Referral ID Status Reason Start Date Expiration Date Visits Re quested Visits Authorized [id number] 1 3 [facility] Work Phone: Summary Purpose Family History No Family History Records FoundUnknown Family Member Name Dates Details Family history of cerebrovas cular accident (CVA): Mother(V17.1, Z82.3) Status:Active Family history of pancreatic cancer: Mother(V16.0, Z80.0) Status:Active Heart problem: Father Status:Active Relationship Condition Age at Onset Recorded Date/T cherry father Unknown Not Specified Malignant neoplasm Unknown Unknown Relationship Condition Age at Onset Recorded Date/T cherry father Unknown mother Malignant neoplasm Unknown Unknown Advance Directives No Advanced Directives Records FoundDocuments on File Type Date Recorded Patient Instructional Technology Coach Expl anation Advance Directives and Living Will Power of Mri Technician Latest Code Status on File Code Status Date Activated Date Inactivated Comments Full Code 06/02/2018 11:51 AM 06/03/2018 2:34 PM Full Code 06/02/2018 5:55 AM 06/02/2018 11:50 AM Documents on File Type Date Recorded Patient Instructional Technology Coach Expl anation ACP-Advance Directive ACP-Power of Mri Technician Documents on File Type Date Recorded Patient Instructional Technology Coach Expl anation Advance Directive(s) 05/24/2019 1:34 PM Advance Directive Response Recorded Date/ Time Advance Directives Yes July 30, 2017 10:02am Latest Code Status on File Code Status Date Activated Date Inactivated Comments Full Code 06/02/2018 11:51 AM 06/03/2018 2:34 PM Code Status History Code Status Date Activated Date Inactivated Comments Full Code 06/02/2018 5:55 AM 06/02/2018 11:50 AM Documents on File Type Date Recorded Patient Instructional Technology Coach Expl anation ACP-Advance Directive 03/24/2025 8:21 AM L IVING WILL Date Activated Date Inactivated Comments 03/24/2025 8:13 AM Date Activated Date Inactivated Comments 06/02/2018 11:51 AM 06/03/2018 2:34 PM Date Activated Date Inactivated Comments 06/02/2018 5:55 AM 06/02/2018 11:50 AM Documents on File Type Date Recorded Patient Instructional Technology Coach Expl anation ACP-Advance Directive 03/24/2025 8:21 AM L IVING WILL Date Activated Date Inactivated Comments 03/24/2025 8:13 AM 03/26/2025 3:23 PM Date Activated Date Inactivated Comments 06/02/2018 11:51 AM 06/03/2018 2:34 PM Date Activated Date Inactivated Comments 06/02/2018 5:55 AM 06/02/2018 11:50 AM Procedure Findings Note HNO ID: [id number] Author: Lesley Sparks MD (Fel) Service: ? Author Type: Fellow Type: Brief Op Note Filed: 05/24/2019 11:17 AM Note Text: BRIEF OPERATIVE / PROCEDURE NOTE LOG ID: [id number] SURGERY/PROCEDURE DATE: 05/24/2019 INCISION/PROCEDURE START TIME: 9:34 AM INCISION CLOSE/PROCEDURE END TIME: 11:12 AM SURGEON(S)/PROCEDURALIST(S) AND INVESTIGATION LIEUTENANT(S): Surgeon(s) and Role: * Geno Mitchell - Primary * Richa Ngo MD - Resident - Assisting * Naila Sparks MD (Fel) - Fellow No Additional Staff SURGERY/PROCEDURE(S): total thyroidectomy ANESTHESIA: General FINDINGS: enlarged thyroid ESTIMATED BLOOD LOSS: 32 mls SPECIMENS: thyroid COMPLICATIONS: None PRE-OP/PRE-PROCEDURE DIAGNOSIS: multinodular thyroid POST-OP/POST-PROCEDURE DIAGNOSIS: Multinodular thyroid [E04.2] SIGNATURE: Naila Sparks MD PATIENT NAME: Garth Olguin DATE: May 24, 2019 TIME: 11:17 AM PAGER/CONTACT #: [phone] Assessments Diagnosis Encounter for screening for malignant neoplasm of other genitourinary organs H/O cancer of uterus Personal history of malignant neoplasm of other parts of uterus Chief Complaint * GARTH OLGUIN is being seen for an annual follow-up of. * 71-year-old female returns for follow-up and is overall doing well she has no cardiovascular complaints, no neurological complaints or recurrences. She does have underlying history of ASHD with remote PCI of the RCA 2017, hypertension, hyperlipidemia most recent LDL cholesterol is 94 on low-dose marina rvastatin 5 days a week. Echocardiogram and carotid duplex exam from last year are reviewed documenting PFO with right to left shunting potentially consistent with her previous TIA event 1 year ago details of which are reviewed. * She is currently on single agent aspirin 81 mg daily and low-dose atorvastatin as noted. Informed decision-making process performed with patient today in regards to 1 appropriate guideline directed medical therapies for her given to vascular bed involvement (neuro and cardiac) and appropriate LDL goal of 70. We have counseled her on considering increasing her atorvastatin to 40 mg daily for better attainment of that goal in addition to diet and exercise. * Further, we did discuss her PFO with right to left shunting and the possibility of recurrence of neurologic events and in consideration for structural heart referral/second opinion versus more aggressive antiplatelet therapy with the addition of clopidogrel. * Mrs. Newsome somewhat reticent to the above recommendations and we simply stated our position is toinform her as much as possible and make appropriate recommendations the ultimate choice is up to her. * Given the above, recommendations are to proceed with atorvastatin 40 daily and referral for structural heart eval for second opinion regarding PFO. Otherwise we will follow-up in 1 year Reason for Referral Specialty Diagnoses / Procedures Referred By Chevy moreland Referred To Contact Cardiology Diagnoses Bilateral carotid artery stenosis Procedures Vascular US Carotid Artery Duplex Bilateral Lul Rose DO [address] [facility], [place] [address] [place] [id number] Referral ID Status Reason Start Date Expiration Date Visits Requested Visits Authorized [id number] Pending Review Perform Procedure 02/25/2024 02/24/2025 1 1 Specialty Diagnoses / Procedures Referred By Chevy moreland Referred To Contact Cardiology Diagnoses ASHD (arteriosclerotic heart disease) Procedures Follow Up In Cardiology Lul Rose DO [address] [facility], [address] [place] [address] Lul Rose DO [address] [facility], [address] [place] [address] Referral ID Status Reason Start Date Expiration Date V isits Requested Visits Authorized [id number] Authorized 02/25/2024 02/24/2025 1 1 Reason *Waiting for appt [facility] [place]. Today's OV. Diagnosis 1 Acute pain of right knee (M25.561) Referral Organization [facility] Referring Provider First Name Aurelia Referring Provider Last Name Kimber Referring Provider Specialty Family Medi cine Referred Organization [facility] Referred Provider Dom Huff Referred Address [address] [place], [place],[address] Referred Provider Specialty Orthopedic S urgery Referral Priority Routine General Notes Eli Goodman 03:39:10 PM >received today, sent P2P Chief Complaint and Reason for Visit Chief Complaint M25.561 Chief Complaint M25.561 chest pain,shaking,high bp Chief Complaint chest pain,shaking,h igh bp Reason for Visit Scoliosis Chief Complaint NEW RT KNEE PAIN WX M25.561 - Pain in right knee Reason for Visit Hypothyroidism Scoliosis HTN (hypertension) Primary osteoarthritis of right knee Chief Complaint NEW RT KNEE PAIN WX M25.561 - Pain in right knee CONSULT DR ZAMBRANO Reason for Visit Hypothyroidism Scoliosis HTN (hypertension) Primary osteoarthritis of right knee Chronic pain Primary osteoarthritis of right knee Right knee pain Chief Complaint NEW RT KNEE PAIN WX M25.561 - Pain in right knee CONSULT DR ZAMBRANO RIGHT GENICULAR NERVE BLOCK /VW Reason for Visit Hypothyroidism Scoliosis HTN (hypertension) Primary osteoarthritis of right knee Chronic pain Primary osteoarthritis of right knee Right knee pain Chief Complaint NEW RT KNEE PAIN WX M25.561 - Pain in right knee CONSULT DR ZAMBRANO RIGHT GENICULAR NERVE BLOCK /VW F/U RIGHT GENICULAR NERVE BLOCK Reason for Visit Hypothyroidism Scoliosis HTN (hypertension) Primary osteoarthritis of right knee Chronic pain Primary osteoarthritis of right knee Right knee pain Chronic pain Primary osteoarthritis of right knee Right knee pain Chief Complaint NEW RT KNEE PAIN WX M25.561 - Pain in right knee CONSULT DR ZAMBRANO RIGHT GENICULAR NERVE BLOCK /VW F/U RIGHT GENICULAR NERVE BLOCK FOLLOW UP AFTER RIGHT GENICULAR BLOCK Reason for Visit Hypothyroidism Scoliosis HTN (hypertension) Primary osteoarthritis of right knee Chronic pain Primary osteoarthritis of right knee Right knee pain Chronic pain Primary osteoarthritis of right knee Right knee pain Chronic pain Primary osteoarthritis of right knee Right knee pain Chief Complaint NEW RT KNEE PAIN WX M25.561 - Pain in right knee CONSULT DR ZAMBRANO RIGHT GENICULAR NERVE BLOCK /VW F/U RIGHT GENICULAR NERVE BLOCK FOLLOW UP AFTER RIGHT GENICULAR BLOCK RT GENICULAR RADIOFREQUENCY ABLATION/CJ Reason for Visit Hypothyroidism Scoliosis HTN (hypertension) Primary osteoarthritis of right knee Chronic pain Primary osteoarthritis of right knee Right knee pain Chronic pain Primary osteoarthritis of right knee Right knee pain Chronic pain Primary osteoarthritis of right knee Right knee pain Chief Complaint NEW RT KNEE PAIN WX M25.561 - Pain in right knee CONSULT DR ZAMBRANO RIGHT GENICULAR NERVE BLOCK /VW F/U RIGHT GENICULAR NERVE BLOCK FOLLOW UP AFTER RIGHT GENICULAR BLOCK RT GENICULAR RADIOFREQUENCY ABLATION/CJ RIGHT GENICULAR BLOCK/CJ Reason for Visit Hypothyroidism Scoliosis HTN (hypertension) Primary osteoarthritis of right knee Chronic pain Primary osteoarthritis of right knee Right knee pain Chronic pain Primary osteoarthritis of right knee Right knee pain Chronic pain Primary osteoarthritis of right knee Right knee pain Chief Complaint CONSULT DR ZAMBRANO RIGHT GENICULAR NERVE BLOCK /VW F/U RIGHT GENICULAR NERVE BLOCK FOLLOW UP AFTER RIGHT GENICULAR BLOCK RT GENICULAR RADIOFREQUENCY ABLATION/CJ RIGHT GENICULAR BLOCK/CJ F/U AFTER RT GENICULAR RFA Reason for Visit Chronic pain Primary osteoarthritis of right knee Right knee pain Chronic pain Primary osteoarthritis of right knee Right knee pain Chronic pain Primary osteoarthritis of right knee Right knee pain Chronic pain Primary osteoarthritis of right knee Right knee pain Chief Complaint RT GENICULAR RADIO FREQUENCY ABLATION/CJ RIGHT GENICULAR BLOCK/CJ F/U AFTER RT GENICULAR RFA IBS flare up Reason for Visit Chronic pain Primary osteoarthritis of right knee Right knee pain Chief Complaint Admit Date Surgical Clearance March 01, 2025 11:23 am Unknown March 03, 2025 9:04a m Reason for Visit Admit Date Dyslipidemia March 01, 2025 11:23 am Hypothyroidism March 01, 2025 11:23 am Preoperative clearance March 01, 2025 11 :23am Primary osteoarthritis of right knee March 01, 2025 11:23am CAD (coronary artery disease) March 01, 2025 11:23am HTN (hypertension) March 01, 2025 11:23 am Additional Source Comments INFORMATION SOURCE (unrecogn ized section and content) DATE CREATED AUTHOR 08/21/2018 [facility] DATE CREATED AUTHOR AUTHOR'S ORGANIZ ATION 05/29/2019 [facility] DATE CREATED AUTHOR AUTHOR'S ORGANIZ ATION 04/06/2021 [facility] DATE CREATED AUTHOR AUTHOR'S ORGANIZ ATION 03/07/2022 [facility] DATE CREATED AUTHOR AUTHOR'S ORGANIZ ATION 05/25/2022 [facility] DATE CREATED AUTHOR AUTHOR'S ORGANIZ ATION 09/24/2022 [facility] DATE CREATED AUTHOR AUTHOR'S ORGANIZ ATION 05/22/2023 [facility] DATE CREATED AUTHOR AUTHOR'S ORGANIZ ATION 03/26/2025 [facility] DATE CREATED AUTHOR AUTHOR'S ORGANIZ ATION 04/22/2025 [facility] DATE CREATED AUTHOR AUTHOR'S ORGANIZ ATION 04/29/2025 [facility] DATE CREATED AUTHOR AUTHOR'S ORGANIZ ATION 05/30/[address] [facility] DATE CREATED AUTHOR AUTHOR'S ORGANIZ ATION 06/04/2025 [facility] DATE CREATED AUTHOR AUTHOR'S ORGANIZ ATION 06/12/2025 [facility] Source Comments (unrecognize d section and content) In the event this informatio n is protected by the Federal Confidentiality of Alcohol and Drug Abuse Patient Records regulations: The Federal rules restrict any use of the information to criminally investigate or prosecute any alcohol or drug abuse patient.[facility] Care Teams (unrecognized sec tion and content) Team Status: Active Member Role Status Dates Aurelia Quiroga MD Primary Care Provider Active Team Status: Inactive Member Role Status Dates Aurelia Quiroga MD Primary Care Provider Active Start: April 21, 2024 End: April 21, 2024 Damir Viera MD Attending Provider Active Sta rt: April 21, 2024 End: April 21, 2024 Team Status: Active Member Role Status Kita Quiroga MD Primary Care Provider Active Start: April 21, 2024 Damir Viera MD Attending Provider Active Sta rt: April 21, 2024 Team Status: Inactive Member Role Status Kita Quiroga MD Primary Care Provider Active Start: April 23, 2024 End: April 23, 2024 Damir Viera MD Attending Provider Active Sta rt: April 23, 2024 End: April 23, 2024 Team Status: Inactive Member Role Status Kita Quiroga MD Primary Care Provider Active Start: May 27, 2024 End: May 27, 2024 Damir Viera MD Attending Provider Active Sta rt: May 27, 2024 End: May 27, 2024 Team Status: Inactive Member Role Status Kita Quiroga MD Primary Care Provide r, Attending Provider Active Start: July 13, 2024 End: July 13, 2024 Team Status: Active Member Role Status Kita Quiroga MD Primary Care Provider Active Start: February 27, 2024 Zheng Rose DO Attending Provider Active S tart: February 27, 2024 Team Status: Inactive Member Role Status Kita Quiroga MD Primary Care Provider Active Start: March 01, 2024 End: March 01, 2024 Damir Viera MD Attending Provider Active Sta rt: March 01, 2024 End: March 01, 2024 Team Status: Active Member Role Status Kita Quiroga MD Primary Care Provider Active Start: March 10, 2024 Damir Viera MD Attending Provider Active Sta rt: March 10, 2024 Team Status: Inactive Member Role Status Kita Quiroga MD Primary Care Provider Active Start: March 10, 2024 End: March 10, 2024 Damir Viera MD Attending Provider Active Sta rt: March 10, 2024 End: March 10, 2024 Team Status: Inactive Member Role Status Kita Quiroga MD Primary Care Provider Active Start: March 23, 2024 End: March 23, 2024 Damir Viera MD Attending Provider Active Sta rt: March 23, 2024 End: March 23, 2024 Team Status: Active Member Role Status Kita Quiroga MD Primary Care Provider Active Start: March 31, 2024 Damir Viera MD Attending Provider Active Sta rt: March 31, 2024 Team Status: Inactive Member Role Status Dates Aurelia Quiroga MD Primary Care Provider Active Start: April 13, 2024 End: April 13, 2024 Damir Viera MD Attending Provider Active Sta rt: April 13, 2024 End: April 13, 2024 Clothes Marker Relationship Specialty Start Date End Date Aurelia Quiroga MD [facility] [place] [id number] PCP - General Family Practice 07/17/17 Clothes Marker Relationship Specialty Start Date End Date Aurelia Quiroga MD PCP - General Family Medicine 04/10/18 Clothes Marker Relationship Specialty Start Date End Date Aurelia Quiroga MD PCP - General Family Medicine 04/10/18 Team Status: Inactive Member Role Status Dates Aurelia Quiroga MD Primary Care Provider Active Damir Engle MD Attending Provider Active Clothes Marker Relationship Specialty Start Date End Date Aurelia Quiroga MD PCP - General Family Medicine 04/10/18 Team Status: Inactive Member Role Status Dates Aurelia Quiroga MD Primary Care Provider Active Anu Gordillo HAND [employer]ICA [employer]ATE L[employer]ER-C Attending Provider Active Team Status: Inactive Member Role Status Dates Aurelia Quiroga MD Primary Care Provider Active Danny Rodríguez MD Emergency Provider Active Team Status: Inactive Member Role Status Dates Aurelia Quiroga MD Attending Provider Active Team Status: Inactive Member Role Status Dates Aurelia Quiroga MD Primary Care Provide r, Attending Provider Active Start: February 10, 2024 End: February 10, 2024 Team Status: Inactive Member Role Status Dates Aurelia Quiroga MD Primary Care Provider Active Start: February 17, 2024 End: February 17, 2024 Darvin Zambrano II, MD Attending Provider Active Start: February 17, 2024 End: February 17, 2024 Team Status: Active Member Role Status Dates Aurelia Quiroga MD Primary Care Provider Active Start: February 17, 2024 Darvin Zambrano II, MD Attending Provider Active Start: February 17, 2024 Clothes Marker Relationship Specialty Start Date End Date Aurelia Quiroga MD [address] [facility] [place] [address] PCP - General 04/03/21 Clothes Marker Relationship Specialty Start Date End Date Aurelia Quiroga MD PCP - General Family Medicine 04/10/18 Clothes Marker Relationship Specialty Start Date End Date Aurelia Quiroga MD [address] [facility] [place] [address] PCP - General 04/03/21 Clothes Marker Relationship Specialty Start Date End Date Aurelia Quiroga MD [address] [facility] [place] [place] [address] PCP - General 04/03/21 Team Status: Inactive Member Role Status Dates Aurelia Quiroga MD Primary Care Provide r, Attending Provider Active Start: March 01, 2025 End: March 01, 2025 Team Status: Inactive Member Role Status Dates NON STAFF Attending Provider Active Start: Sandra lennon 2024 End: March 03, 2025 Team Status: Active Member Role Status Dates Aurelia Quiroga MD Primary Care Provide r, Attending Provider Active Start: March 03, 2025 Clothes Marker Relationship Specialty Start Date End Date Aurelia Quiroga MD [address] [facility] [place] [address] PCP - General 04/03/21 Clothes Marker Relationship Specialty Start Date End Date Aurelia Quiroga MD [address] [facility] [place] [address] PCP - General 04/03/21 Clothes Marker Relationship Specialty Start Date End Date Aurelia Quiroga MD [address] [facility] [place] [address] PCP - General 04/03/21 Clothes Marker Relationship Specialty Start Date End Date Aurelia Quiroga MD [address] [facility] [place] [address] PCP - General 04/03/21 Clothes Marker Relationship Specialty Start Date End Date Aurelia Quiroga MD PCP - General Family Medicine 04/10/18 Clothes Marker Relationship Specialty Start Date End Date Aurelia Quiroga MD PCP - General Family Medicine 04/10/18 REASON FOR VISIT (unrecogniz ed section and content) Reason Comments Annual Exam Specialty Diagnoses / Procedures Referred By Contac t Referred To Contact Cardiology Diagnoses Bilateral carotid artery stenosis Procedures Vascular US Carotid Artery Duplex Bilateral Lul Rose, [place] [id number] Referral ID Status Reason Start Date Expiration Date Visits Requested Visits Authorized [id number] Pending Review Perform Procedure 02/25/2024 02/24/2025 1 1 Reason Comments Annual Exam 1 year, arterioscler otic heart disease Specialty Diagnoses / Procedures Referred By Contac t Referred To Contact Cardiology Diagnoses ASHD (arteriosclerotic heart disease) Procedures Follow Up In Cardiology Lul Rose, [address] [place] [address] 2, [address] [address] Phone: tel: fax: Lul Rose, [address] [place] [address] 2, [address] [address] Phone: tel: fax: Referral ID Status Reason Start Date Expiration Date V isits Requested Visits Authorized [id number] Authorized 02/25/2024 02/24/2025 1 1 Goals (unrecognized section and content) Goals may be documented in a n alternate section Ordered Prescriptions (unrec ognized section and content) Prescription Sig Dispense Quantity Refills Last Filled Start Date End Date docusate sodium (COLACE) 100 MG capsule Take 1 capsule by mouth 2 times daily for 10 days 20 capsule 03/26/2025 5 sodium chloride 1 g tablet Take 2 tablets by mouth in the morning and at bedtime for 5 days 20 tablet 03/26/2025 5 aspirin (NORA ASPIRIN) 325 MG tablet Take 1 tablet by mouth daily 30 tablet 03/24/2025 5 pregabalin (LYRICA) 75 MG capsuleIndications :S/P total knee arthroplasty, right Take 1 capsule by mouth every 12 hours as needed (breakthrough pain) for up to 14 days. Max Daily Amount: 150 mg 28 capsule 03/24/2025 5 oxyCODONE (ROXICODONE) 5 MG immediate release tabletIndications: S/P total knee arthroplasty, right Take 1 tablet by mouth every 6 hours as needed for Pain for up to 5 days. Intended supply: 5 days. Take lowest dose possible to manage pain Max Daily Amount: 20 mg 20 tablet 03/24/2025 5 Scheduled Active and Recently Administ ered Medications (unrecognized section and content) Medication Order 03/24/2025 03/25/2025 03/26/2025 acetaminophen (TYLENOL) [...] Eunice Cazares RN)2032 (Given - Provider: Karin Chew RN) 0205 (Given - Provider: Karin Chew RN)0841 (Given - Provider: Rhona Childers RN)1405 (Given - Provider: Rhona Childers RN)1952 (Given - Provider: Don Prieto RN) 0301 (Given - Provider: Don Prieto, KARLENE)0813 (Given - Provider: Anya Flores, RN)1430 (Due)2030 (Due) aspirin EC tablet 325 mg 325 mg, Oral, DAILY, First dose on Fri03/25/25 at 0900, Until Discontinued, Do not crush or break., Post-op 0841 (Given - Provider: Rhona Childers RN) 0813 (Given - Provider: Anya Flores RN) ceFAZolin (ANCEF) 2000 mg in dextrose 3 % 50 mL IVPB (duplex) (COMPLETED) 2,000 mg, IntraVENous, DISTRICT CLAIMS MANAGER TO O.R., 1 dose, On Tracy 03/24/25 at 0830, Antimicrobial Indications: Surgical Prophylaxis, Administer within 1 hour prior to incision. Recommend to repeat in 3-4 hours after initial dose if still intra-op., Pre-op (day of surgery) 1057 (Given - Provider: Sinan Khan APRN - WATER POLLUTION SCIENTIST) ceFAZolin (ANCEF) 2000 mg in dextrose 3 % 50 mL IVPB (duplex) (COMPLETED) 2,000 mg, IntraVENous, EVERY 8 HOURS, 2 doses, First dose (after last modification) on Tracy 03/24/25 at 2000, Last dose on Fri03/25/25 at 0400, Antimicrobial Indications: Surgical Prophylaxis, Post-op 2030 (New Bag - Provider: Karin Chew RN)2105 (Stopped - Provider: Karin Chew RN) 0332 (New Bag - Provider: Karin Chew RN)0415 (Stopped - Provider: Karin Chew RN) celecoxib (CELEBREX) capsule 100 mg (COMPLETED) 100 mg, Oral, ONCE, 1 dose, On Tracy 03/24/25 at 0830, Administer 60 minutes prior to surgery., Pre-op (day of surgery) 0845 (Given - Provider: Angie Santos, KARLENE) diazePAM (VALIUM) tablet 5 mg (COMPLETED) 5 mg, Oral, ONCE, 1 dose, On Tracy 03/24/25 at 1400 1335 (Given - Provider: Anais [...] Santos RN - Comment: behind R ear) sodium chloride 0.9 % bolus 1,000 mL [...] Flores RN - Reason: Loss of IV access)2100 (Due) sodium chloride tablet 2 g 2 g, Oral, 2 TIMES DAILY WITH MEALS, First dose on Fri03/25/25 at 1700, Until Discontinued 1653 (Given - Provider: Rhona Childers RN) 0813 (Given - Provider: Anya Flores RN)1700 (Due) Continuous Medication Order 03/24/2025 03/25/2025 03/26/2025 0.9 [...] (NoRateChange - Provider: Sinan Khan APRN - WATER POLLUTION SCIENTIST)1115 (New Bag - Provider: LETY Gonzales CRNA)1412 [...] Starting on Tracy 03/24/25 at 1413, Until Discontinued, Constipation, First line therapy for constipation., Post-op 1758 (Given - Provider: Rhona Childers RN) busPIRone (BUSPAR) tablet 5 mg 5 mg, Oral, 3 TIMES DAILY PRN, Starting on Tracy 03/24/25 at 1745, Until Discontinued, anxiety diphenhydrAMINE (BENADRYL) capsule 25 mg(Linked Group 1) 25 mg, Oral, EVERY 6 HOURS PRN, Starting on Tracy 03/24/25 at 1413, Until Discontinued, Itching, Post-op diphenhydrAMINE (BENADRYL) injection 25 mg(Linked Group 1) 25 mg, IntraVENous, EVERY 6 HOURS PRN, Starting on Tracy 03/24/25 at 1413, Until Discontinued, Itching, Administer if oral route cannot be [...] Starting on Tracy 03/24/25 at 1413, Until Discontinued, Nausea, Vomiting, Administer if oral route cannot be used., Post-op ondansetron (ZOFRAN-ODT) disintegrating tablet 4 mg(Linked Group 2) 4 mg, Oral, EVERY 8 HOURS PRN, Starting on Tracy 03/24/25 at 1413, Until Discontinued, Nausea, Vomiting, Post-op oxyCODONE (ROXICODONE) immediate release tablet 10 mg(Linked Group 3) 10 mg, Oral, EVERY 4 HOURS PRN, Starting on Tracy 6 at 1413, Until Discontinued, Pain Severe (7-10), Post-op 1908 (Given - Provider: Karin Chew RN) 0243 (Given - Provider: Lizzy Spence RN)0631 (Given - Provider: Karin Chew RN)1131 (See Alternative - Provider: Rhona Childers, KARLENE)1534 (See Alternative - Provider: Rhona Childers, KARLENE)1951 (See Alternative - Provider: Don Prieto RN)2332 (Given - Provider: Don Prieto RN) 0350 (Given - Provider: Don Prieto RN)1309 (Given - Provider: Anya Flores RN) oxyCODONE (ROXICODONE) immediate release tablet 5 mg(Linked Group 3) 5 mg, Oral, EVERY 4 HOURS PRN, Starting on Tracy 03/24/25 at 1413, Until Discontinued, Pain Moderate (4-6), allowed for higher pain score per patient request, Post-op 1908 (See Alternative - Provider: Karin Chew, KARLENE) 0243 (See Alternative - Provider: Lizzy Spence, KARLENE)0631 (See Alternative - Provider: Karin Chew, KARLENE)1131 (Given - Provider: Rhona Childers, KARLENE)1534 (Given - Provider: Rhona Childers, KARLENE)1951 (Given - Provider: Don Prieto, KARLENE)2332 (See Alternative - Provider: Don Prieto RN) 0350 (See Alternative - Provider: Don Prieto RN)1309 (See Alternative - Provider: Anya Flores RN) pregabalin (LYRICA) capsule 75 mg 75 mg, Oral, EVERY 12 HOURS PRN, Starting on Tracy 03/24/25 at 1413, Until Discontinued, breakthrough pain senna (SENOKOT) tablet 8.6 mg 8.6 mg (1 tablet), Oral, DAILY PRN, Starting on Tracy 03/24/25 at 1413, Until Discontinued, Constipation, Second line therapy for constipation, After 24 hours, if no result from first line PRN therapy, give second line therapy in combination with first line therapy., Post-op sodium chloride flush 0.9 % injection 5-40 mL 5-40 mL, IntraVENous, PRN, Starting on Tracy 03/24/25 at 1413, Until Discontinued, Line Care, After every IV line use, [...] EVERY 6 HOURS PRN, Starting on Tracy 6/12/25 at 1413, Until Discontinued, Itching, Post-op Or diphenhydrAMINE (BENADRYL) injection 25 mgJump to med 25 mg, IntraVENous, EVERY 6 HOURS PRN, Starting on Tracy 625 at 1413, Until Discontinued, Itching, Administer if oral route cannot be used., Post-op Group 2: ondansetron (ZOFRAN-ODT) disintegrating tablet 4 mgJump to med 4 mg, Oral, EVERY 8 HOURS PRN, Starting on Tracy 6 at 1413, Until Discontinued, Nausea, Vomiting, Post-op Or ondansetron (ZOFRAN) injection 4 mgJump to med 4 mg, IntraVENous, EVERY 6 HOURS PRN, Starting on Tracy 625 at 1413, Until Discontinued, Nausea, Vomiting, Administer if oral route cannot be used., Post- op Group 3: oxyCODONE (ROXICODONE) immediate release tablet 5 mgJump to med 5 mg, Oral, EVERY 4 HOURS PRN, Starting on Tracy 6 at 1413, Until Discontinued, Pain Moderate (4-6), allowed for higher pain score per patient request, Post-op Or oxyCODONE (ROXICODONE) immediate release tablet 10 mgJump to med 10 mg, Oral, EVERY 4 HOURS PRN, Starting on Tracy 625 at 1413, Until Discontinued, Pain Severe (7-10), Post-op FOR RECORDS PERTAINING TO PATIENTS WHO ARE OR HAVE BEEN ENROLLED IN A CHEMICAL DEPENDENCY/SUBSTANCEABUSE PROGRAM, SOME INFORMATION MAY BE OMITTED. This clinical summary was aggregated from multiple sources. Caution should be exercised in using it in the provision of clinical care. This summary normalizes information from multiple sources, and as a consequence, information in this document may materially change the coding, format and clinical context of patient data. In addition, data may be omitted in some cases. CLINICAL DECISIONS SHOULD BE BASED ON THE PRIMARY CLINICAL RECORDS. [employer]. provides no warranty or guarantee of the accuracy or completeness of information in this document.
== END 2025-06-14 11:19 | disposition home or self-care (01) ==
LOC: MAMMO 11:18
PROVIDERS: PCP Family Medicine
DX: Z12.31 Encounter for screening mammogram for malignant neoplasm of breast (principal); Z80.8 Family history of malignant neoplasm of other organs or systems
CPT/HCPCS: 77063; 77067